=== PATIENT | female | born 1945 | race Caucasian/White ===

== ENCOUNTER → 2016-04-30 | Outpatient (CLI) | payer OTHER, BC ==
[~2016-04-30] MED LIST: ALPR1TAB3 PO; BENA20TA13 PO; ERGO500037 PO; FLUO20CA35 PO; PANT40TA PO; ZOLP10TA PO
[2016-04-30 10:27] LABS: BLOOD UREA NITROGEN 44 mg/dl (7-18); CALCIUM 9.2 mg/dl (8.5-10.1); CARBON DIOXIDE 26 mmol/L (21-32); CHLORIDE 104 mmol/L (98-107); GLUCOSE 96 mg/dl (70-99); POTASSIUM 4.8 mmol/L (3.5-5.1); SODIUM 141 mmol/L (136-145)
[2016-04-30 10:28] LABS: PHOSPHORUS 3.3 mg/dl (2.5-4.9)
== END | disposition home or self-care (01) ==
LOC: C.LAB1850 08:54
PROVIDERS: ATTEND Internal Medicine Nephrology
DX: R60.0 Localized edema (principal)

== ENCOUNTER → 2016-05-14 | Outpatient (CLI) | payer OTHER, BC ==
[2016-05-14 13:29] LABS: BLOOD UREA NITROGEN 35 mg/dl (7-18); BUN/CREATININE RATIO 18.4 (10-20); CALCIUM 8.9 mg/dl (8.5-10.1); CARBON DIOXIDE 27 mmol/L (21-32); CHLORIDE 107 mmol/L (98-107); GLUCOSE 89 mg/dl (70-99); PHOSPHORUS 3.1 mg/dl (2.5-4.9); POTASSIUM 5.2 mmol/L (3.5-5.1); SODIUM 142 mmol/L (136-145)
== END | disposition home or self-care (01) ==
LOC: C.LAB1850 12:04
PROVIDERS: ATTEND Internal Medicine Nephrology
DX: N17.9 Acute kidney failure, unspecified (principal)

== ENCOUNTER → 2016-06-26 | Outpatient (CLI) | payer OTHER, BC ==
[2016-06-26 12:12] LABS: ALT/SGPT 22 U/L (12-78); BLOOD UREA NITROGEN 40 mg/dl (7-18); BUN/CREATININE RATIO 19.9 (10-20); CALCIUM 9.4 mg/dl (8.5-10.1); CARBON DIOXIDE 29 mmol/L (21-32); CHLORIDE 104 mmol/L (98-107); GLUCOSE 86 mg/dl (70-99); POTASSIUM 4.3 mmol/L (3.5-5.1); SODIUM 139 mmol/L (136-145)
[2016-06-26 12:15] LABS: ALB/GLOB RATIO 0.9 (0.9-2); ALKALINE PHOSPHATASE 82 U/L (45-117); AST/SGOT 14 U/L (15-37); PHOSPHORUS 3.4 mg/dl (2.5-4.9)
== END | disposition home or self-care (01) ==
LOC: C.LAB1850 09:53
PROVIDERS: ATTEND Internal Medicine Nephrology
DX: N18.3 Chronic kidney disease, stage 3 (moderate) (principal); E87.1 Hypo-osmolality and hyponatremia

== ENCOUNTER → 2016-07-26 | Outpatient (CLI) | payer OTHER, BC ==
[2016-07-26 16:39] LABS: MANUAL MICROSCOPIC REQUIRED? NO; REVIEW REQ? NO; URINE APPEARANCE CLEAR (CLEAR); URINE BILIRUBIN NEG (NEG); URINE COLOR YELLOW; URINE EPITHELIAL CELL AUTO 0-5 /lpf (0-5); URINE NITRITE NEG (NEG); URINE SPECIFIC GRAVITY 1.014 (1.000-1.030); UROBILINOGEN NEG (NEG); ZZUR CULT IF INDIC CLEAN CATCH NO
[2016-07-26 17:30] LABS: URINE PROTIEN/CREAT RATIO 0.1 (0-0.2); URINE TOTAL PROTEIN 6.4 mg/dl (0-11.9)
[2016-07-26 17:33] LABS: BLOOD UREA NITROGEN 30 mg/dl (7-18); BUN/CREATININE RATIO 16.8 (10-20); CALCIUM 9.1 mg/dl (8.5-10.1); CARBON DIOXIDE 33 mmol/L (21-32); CHLORIDE 106 mmol/L (98-107); GLUCOSE 95 mg/dl (70-99); MAGNESIUM 2.3 mg/dl (1.8-2.4); POTASSIUM 4.5 mmol/L (3.5-5.1); SODIUM 141 mmol/L (136-145)
[2016-07-26 17:34] LABS: PHOSPHORUS 2.8 mg/dl (2.5-4.9)
== END | disposition home or self-care (01) ==
LOC: C.LAB1850 14:46
PROVIDERS: ATTEND Internal Medicine Nephrology
DX: N18.3 Chronic kidney disease, stage 3 (moderate) (principal); E55.9 Vitamin D deficiency, unspecified

== ENCOUNTER → 2016-12-04 | Outpatient (CLI) | payer OTHER, BC ==
[2016-12-04 16:28] LABS: MANUAL MICROSCOPIC REQUIRED? NO; REVIEW REQ? NO; URINE APPEARANCE CLEAR (CLEAR); URINE BILIRUBIN NEG (NEG); URINE COLOR YELLOW; URINE EPITHELIAL CELL AUTO 0-5 /lpf (0-5); URINE NITRITE NEG (NEG); URINE SPECIFIC GRAVITY 1.015 (1.000-1.030); UROBILINOGEN NEG (NEG); ZZUR CULT IF INDIC CLEAN CATCH NO
[2016-12-04 16:53] LABS: BLOOD UREA NITROGEN 31 mg/dl (7-18); BUN/CREATININE RATIO 18.1 (10-20); CALCIUM 9.3 mg/dl (8.5-10.1); CARBON DIOXIDE 28 mmol/L (21-32); CHLORIDE 97 mmol/L (98-107); GLUCOSE 82 mg/dl (70-99); POTASSIUM 4.8 mmol/L (3.5-5.1); SODIUM 130 mmol/L (136-145)
== END | disposition home or self-care (01) ==
LOC: C.LAB1850 15:21
PROVIDERS: ATTEND Internal Medicine Nephrology
DX: N18.3 Chronic kidney disease, stage 3 (moderate) (principal); R30.0 Dysuria

== ENCOUNTER → 2016-12-14 | Outpatient (CLI) | payer OTHER, BC ==
--- NOTE | 2016-12-14 15:23 | DIAGNOSTIC IMAGING REPORT ---
BILATERAL LOWER EXTREMITY VENOUS DOPPLER CLINICAL HISTORY: Lymphedema. COMPARISON STUDY: Bilateral lower extremity venous Doppler August 08, 2012. TECHNIQUE: Sonography of the deep venous system of the bilateral lower extremities was performed. Compression and augmentation were evaluated. FINDINGS: The bilateral common femoral, superficial femoral and popliteal veins were compressible. Augmentation was normal. Flow was shown within the deep calf vessels. Lower extremity edema was noted. IMPRESSION: No evidence of deep venous thrombus within the bilateral lower extremities. Electronically signed by: Deshawn Joiner M.D. 12/14/2016 3:21 PM Dictated Date/Time: 12/14/2016 3:20 PM
[2016-12-14 16:16] LABS: BLOOD UREA NITROGEN 35 mg/dl (7-18); BUN/CREATININE RATIO 20.8 (10-20); CALCIUM 9.5 mg/dl (8.5-10.1); CARBON DIOXIDE 29 mmol/L (21-32); CHLORIDE 102 mmol/L (98-107); GLUCOSE 89 mg/dl (70-99); POTASSIUM 4.9 mmol/L (3.5-5.1); SODIUM 137 mmol/L (136-145)
[2016-12-14 16:17] LABS: PHOSPHORUS 3.4 mg/dl (2.5-4.9)
--- NOTE | 2016-12-21 07:55 | CODING QUERY MEDICAL NECESSITY ---
SUPPORTING DIAGNOSIS NEEDED A supporting diagnosis is required for the test/procedure performed on this patient in order for us to be reimbursed by the patient's insurance. Please provide a supporting diagnosis for the following test/procedure listed below next to the test name along with your signature. *If there is no additional diagnosis for this patient that would support the following test/procedure please document that below next to the test/procedure. Test(s)/Procedure(s) that require a supporting diagnosis: * US VENOUS DOPPLER LWR EXT BILATERAL DIAGNOSIS: Provider Signature: Date: Thank you [place] [employer] Information Management Once completed, please kindly fax back to [phone] For questions please call [phone]
== END | disposition home or self-care (01) ==
LOC: C.ULTR 14:25
PROVIDERS: ATTEND Internal Medicine Nephrology
DX: I89.0 Lymphedema, not elsewhere classified (principal); R60.0 Localized edema

== ENCOUNTER → 2017-01-25 | Outpatient (CLI) | payer OTHER, BC ==
[2017-01-25 14:49] LABS: BASO % 0.8 %; BASO ABS # 0.05 K/uL (0-0.2); COMPLETE YES; EOS % 4.7 %; HEMATOCRIT 38.7 % (37-47); IG% 0.2 %; LYMPH % 25.6 %; LYMPH ABS # 1.62 K/uL (1.2-3.4); MEAN CELL VOLUME 98.2 fL (80-100); MEAN CORPUSCULAR HGB CONC 32.6 g/dl (32-36); MEAN PLATELET VOLUME 9.8 fL (7.4-10.4); MONO % 7.6 %; NEUT % 61.1 %; PLATELET COUNT 246 K/uL (130-400); RED BLOOD COUNT 3.94 M/uL (4.2-5.4); WHITE BLOOD COUNT 6.33 K/uL (4.8-10.8)
[2017-01-25 14:59] LABS: BLOOD UREA NITROGEN 28 mg/dl (7-18); BUN/CREATININE RATIO 16.9 (10-20); CALCIUM 8.8 mg/dl (8.5-10.1); CARBON DIOXIDE 28 mmol/L (21-32); CHLORIDE 105 mmol/L (98-107); CREATININE 1.64 mg/dl (0.60-1.20); GLUCOSE 73 mg/dl (70-99); MAGNESIUM 2.3 mg/dl (1.8-2.4); POTASSIUM 4.5 mmol/L (3.5-5.1); SODIUM 138 mmol/L (136-145)
[2017-01-25 15:00] LABS: PHOSPHORUS 2.8 mg/dl (2.5-4.9)
[2017-01-25 15:12] LABS: URINE APPEARANCE CLEAR (CLEAR); URINE BILIRUBIN NEG (NEG); URINE COLOR YELLOW; URINE EPITHELIAL CELL AUTO 0-5 /lpf (0-5); URINE NITRITE NEG (NEG); URINE PH 5.5 (4.5-7.5); URINE SPECIFIC GRAVITY 1.012 (1.000-1.030); UROBILINOGEN NEG (NEG); ZZUR CULT IF INDIC CLEAN CATCH NO
[2017-01-25 15:15] LABS: MANUAL MICROSCOPIC REQUIRED? NO; REVIEW REQ? NO
[2017-01-25 15:22] LABS: URINE TOTAL PROTEIN < 5.0 mg/dl (0-11.9)
--- NOTE | 2017-02-04 13:14 | CODING QUERY MEDICAL NECESSITY ---
SUPPORTING DIAGNOSIS NEEDED A supporting diagnosis is required for the test/procedure performed on this patient in order for us to be reimbursed by the patient's insurance. Please provide a supporting diagnosis for the following test/procedure listed below next to the test name along with your signature. *If there is no additional diagnosis for this patient that would support the following test/procedure please document that below next to the test/procedure. Test(s)/Procedure(s) that require a supporting diagnosis: * VITAMIN D, 25-HYDROXY DIAGNOSIS: Provider Signature: Date: Thank you [place] [employer] Information [employer] Once completed, please kindly fax back to [phone] For questions please call [phone]
== END | disposition home or self-care (01) ==
LOC: C.LAB1850 12:21
PROVIDERS: ATTEND Internal Medicine Nephrology
DX: E87.1 Hypo-osmolality and hyponatremia (principal)

== ENCOUNTER → 2017-05-27 | Outpatient (CLI) | payer OTHER, BC ==
--- NOTE | 2017-05-27 15:43 | DIAGNOSTIC IMAGING REPORT ---
CHEST 2 VIEWS ROUTINE CLINICAL HISTORY: Shortness of breath COMPARISON STUDY: No previous studies for comparison. FINDINGS: The cardiac and mediastinal contours are normal. There is no evidence of focal pulmonary consolidation. There is no evidence of failure. No pleural effusions are visualized.[ IMPRESSION: No active disease in the chest. Electronically signed by: Dakotah Reagan M.D. 05/27/2017 3:41 PM Dictated Date/Time: 05/27/2017 3:41 PM
== END | disposition home or self-care (01) ==
LOC: C.RAD 15:20
PROVIDERS: ATTEND Family Medicine
DX: R06.02 Shortness of breath (principal)

== ENCOUNTER → 2017-07-29 | Outpatient (CLI) | payer OTHER, BC ==
[2017-07-29 16:06] LABS: BASO % 0.6 %; BASO ABS # 0.04 K/uL (0-0.2); EOS ABS # 0.37 K/uL (0-0.5); HEMATOCRIT 39.1 % (37-47); HEMOGLOBIN 12.6 g/dL (12.0-16.0); IG# 0.02 K/uL (0.00-0.02); LYMPH % 31.3 %; LYMPH ABS # 1.93 K/uL (1.2-3.4); MEAN CELL VOLUME 96.3 fL (80-100); MEAN CORPUSCULAR HGB CONC 32.2 g/dl (32-36); MEAN PLATELET VOLUME 10.1 fL (7.4-10.4); MONO % 7.3 %; MONO ABS # 0.45 K/uL (0.11-0.59); NEUT % 54.5 %; NEUT ABS # 3.36 K/uL (1.4-6.5); PLATELET COUNT 247 K/uL (130-400); RED CELL DISTRIBUTION WIDTH CV 13.9 % (11.5-14.5); RED CELL DISTRIBUTION WIDTH SD 49.2 fL (36.4-46.3); WHITE BLOOD COUNT 6.17 K/uL (4.8-10.8)
[2017-07-29 16:25] LABS: ALBUMIN 3.4 gm/dl (3.4-5.0); BLOOD UREA NITROGEN 29 mg/dl (7-18); CALCIUM 8.8 mg/dl (8.5-10.1); CARBON DIOXIDE 29 mmol/L (21-32); CREATININE 1.75 mg/dl (0.60-1.20); GLUCOSE 93 mg/dl (70-99); PHOSPHORUS 2.5 mg/dl (2.5-4.9); POTASSIUM 4.9 mmol/L (3.5-5.1); SODIUM 139 mmol/L (136-145)
== END | disposition home or self-care (01) ==
LOC: C.LAB1850 14:39
PROVIDERS: ATTEND Internal Medicine Nephrology
DX: N18.3 Chronic kidney disease, stage 3 (moderate) (principal)

== ENCOUNTER 2018-11-16 16:06 | Inpatient (IN) ==
[2018-11-16] MEDS ORDERED: ONDANSETRON INJ 2 MG/ML 2 ML VIAL IV STA (16:19)
[2018-11-16] MEDS ORDERED: SODIUM CHLORIDE 0.9% 1000ML 1,000 ML IV SCH (16:30)
--- NOTE | 2018-11-16 16:42 | XRay Report ---
XR chest 1V portable CLINICAL HISTORY: nausea pain COMPARISON STUDY: 07/20/2018 FINDINGS: The bones soft tissues and hemidiaphragms are normal. The cardiomediastinal silhouette is n ormal. The lungs are clear. The pulmonary vasculature is normal. IMPRESSION: Negative chest. The above report was generated using voice recognition software. It may contain grammatical, syntax or spelling errors. Electronically signed by: George Otoole M.D. 11/16/2018 4:41 PM
[2018-11-16 17:17] LABS: Basophils # (auto) 0.02 K/uL (0-0.2); Basophils % (auto) 0.3 %; Eosinophils # (auto) 0.11 K/uL (0-0.5); Eosinophils % (auto) 1.6 %; Hematocrit (blood only) 34.6 % (37-47); Hemoglobin 11.8 g/dL (12.0-16.0); Immature Granulocytes # (auto) 0.04 K/uL (0.00-0.02); Immature Granulocytes % (auto) 0.6 %; Lymphocytes # (auto) 1.24 K/uL (1.2-3.4); Lymphocytes % (auto) 18.2 %; Mean Corpuscular Hgb Conc 34.1 g/dL (32-36); Mean Corpuscular Volume 93.3 fL (80-100); Monocytes # (auto) 0.48 K/uL (0.11-0.59); Neutrophils # (auto) 4.92 K/uL (1.4-6.5); Neutrophils % (auto) 72.3 %; Platelet Count 224 K/uL (130-400); RDW Coefficient of Variation 12.9 % (11.5-14.5); RDW Standard Deviation 43.5 fL (36.4-46.3); Red Blood Count 3.71 M/uL (4.2-5.4); White Blood Count 6.81 K/uL (4.8-10.8)
[2018-11-16 17:30] LABS: Partial Thromboplastin Time 27.8 Seconds (21.0-31.0); Prothrombin Time 9.8 Seconds (9.0-12.0)
--- NOTE | 2018-11-16 17:32 | CT Scan Report ---
CT head/brain wo con CT DOSE: 2511.58 mGy.cm HISTORY: STOVALL and nausea TECHNIQUE: Multiaxial CT images of the head were performed without the use of intravenous contrast. A dose lowering technique was utilized adhering to the principles of ALARA. Comparison: None. Findings: The paranasal sinuses and mastoid air cells are clear. The calvarium and skull base are int act. The ventricles and sulci are within normal limits. There is no mass, hematoma, midline shift, or acute infarct. There is a left periventricular subacute infarct. No evidence for acute intracranial hemorrhage. Impression: 1. Subacute left periventricular infarct. 2. Otherwise negative study. 3. No evidence for acute intracranial hemorrhage. The above report was generated using voice recognition software. It may contain grammatical, syntax or spelling errors. Electronically signed by: George Otoole M.D. 11/16/2018 5:29 PM
[2018-11-16 17:35] LABS: Alanine Aminotransferase 19 U/L (12-78); Albumin Level 3.6 gm/dl (3.4-5.0); Aspartate Aminotransferase 13 U/L (15-37); Blood Urea Nitrogen 24 mg/dl (7-18); Calcium 8.9 mg/dl (8.5-10.1); Carbon Dioxide 26 mmol/L (21-32); Chloride 98 mmol/L (98-107); Creatinine Clr Calc Pharmacy 32.8 ml/min; Est GFR (African American) 33.6; Glucose 100 mg/dl (70-99); Potassium 4.4 mmol/L (3.5-5.1); Sodium 133 mmol/L (136-145)
--- NOTE | 2018-11-16 17:36 | CT Scan Report ---
CT abd pelvis wo con CT DOSE: HISTORY: Pain suprapubic TECHNIQUE: Multiaxial CT images of the abdomen and pelvis were performed without contrast. A dose lo wering technique was utilized adhering to the principles of ALARA. COMPARISON STUDY: None. FINDINGS: Lung bases are clear. Liver spleen and pancreas are unremarkable. Mild cortical scarring of the kidneys bilaterally. No evidence for renal hydronephrosis. Probable right renal cyst. Bowel pattern is nonobstructive. Scattered colonic diverticulosis with no evidence for acute divertic ulitis. Bladder is midline. Small fat-containing anterior wall hernia. This shows no evidence of rory l containment or obstruction. IMPRESSION: No acute process in the abdomen or pelvis. Incidental findings as noted. The above report was generated using voice recognition software. It may contain grammatical, syntax or spelling errors. Electronically signed by: George Otoole M.D. 11/16/2018 5:34 PM
[2018-11-16 17:40] LABS: Albumin Globulin Ratio 1.1 (0.9-2); Alkaline Phosphatase 57 U/L (45-117); Bilirubin,Total 0.5 mg/dl (0.2-1); Globulin 3.4 gm/dl (2.5-4.0); Troponin I < 0.015 ng/ml (0-0.045)
[2018-11-16] MEDS ORDERED: LABETALOL HCL IV 5 MG/ML 20ML IV STA ×2 (17:47→18:55)
[2018-11-16] MEDS ORDERED: ASPIRIN CHEW 324 MG PO STA (17:47)
--- NOTE | 2018-11-16 17:51 | Emergency Department Note ---
Entered by Paige Willoughby acting as a scribe for Neri Mondragon DO History of Present Illness General Chief complaint: Abdominal Pain Stated complaint: REF BY DR; ABDOMINAL PAIN,BURNING,NAUSEA Time Seen by Provider: 11/16/18 16:13 Source: patient Mode of arrival: ambulatory Limitations: no limitations History of Present Illness Onset (ago): day(s) 5 Location: abdomen Pain Consistency: + other (worsening ) Maximum Pain Intensity: 7 Relieved By: + other Associated symptoms: + denies other symptoms (vaginal discharge, rectal bleeding ), + headaches, + nausea/vomiting (nausea) and + other (dysuria, bloating); no rash The patient is a 73 year old female who presents to the ED with complaints of worsening abdominal pain that began 5 days ago. The patient states that she typically always has abdominal pain but in the past 2 days she has also been experiencing burning pain while urinating. She reports that she has been experiencing abdominal bloating. She states that she got a headache this afternoon. The patient states that she has been nauseated for 4 days now and was prescribed Zofran by her Production Controller, Dr. Jhon. She states that she sees him for her stage 3 kidney disease. The patient states that the Zofran worked for 2 days but her nausea has returned. The patient was referred to the ED from her visit at the clinic this morning to have a GI system check. The patent states that she was in the ED a few months ago for the same symptoms. The patient denies a rash or discharge in her vaginal area. The patient denies rectal bleeding. Home Medications Home Medications Medication Instructions Recorded Confirmed Type alprazolam 1 mg PO TID 07/19/18 11/16/18 History beclomethasone dipropionate [Qvar 1 puff INHALATION BID 07/19/18 11/16/18 History RediHaler] benazepril 20 mg PO QAM 07/19/18 11/16/18 History calcitriol 0.25 mcg PO QAM 07/19/18 11/16/18 History fluoxetine 60 mg PO QAM 07/19/18 11/16/18 History fluticasone propionate 1 spray INTRANASAL QAM 07/19/18 11/16/18 History montelukast 10 mg PO HS 07/19/18 11/16/18 History pantoprazole 40 mg PO BID 07/19/18 11/16/18 History ondansetron HCl 4 mg tablet 4 mg PO Q8H PRN #7 tab 11/12/18 11/16/18 Rx Allergies Allergy/AdvReac Type Severity Reaction Status Date / Time Penicillins Allergy Unknown RASH TO Verified 11/16/18 16:40 AMOXIL, NO RESP PROBLEMS amoxicillin Allergy Hives Verified 11/16/18 20:15 Past Med/Surg History Medical History Major depressive disorder (Chronic) GERD (gastroesophageal reflux disease) (Chronic) HTN (hypertension) (Chronic) Anxiety (Chronic) Chronic kidney disease (Chronic) Surgical History History of right knee joint replacement (Chronic) Family History Mother Heart disease Stroke Social History Preferred Language: [place] Communication Ability: Effective 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 and A total of 10 systems reviewed and were otherwise negative Physical Exam Vital Signs Vital Signs - 24 hr 11/16/18 16:08 11/16/18 16:57 11/16/18 18:05 Temperature 37.1 C Temperature Source Oral Sepsis Recent Fever Within 48 Hours No Sepsis New/Unexplained Change in Mental Status No Sepsis Action Taken by Nursing No Action Required Pulse Rate 104 H Pulse Rate [Apical] 86 Respiratory Rate 22 18 Respiratory Effort / Characteristics Non-Labored Respiratory Depth Normal Blood Pressure 184/86 H Blood Pressure [Left Arm] 192/106 H Blood Pressure Mean 118 Blood Pressure Mean [Left Arm] 134 Pulse Oximetry 95 98 100 Oxygen Delivery Method Room Air Room Air Room Air GENERAL: Patient is awake, alert, and in no acute distress.Patient is resting comfortably and showing no signs of anxiety EYES: The conjunctivae are clear. The pupils are round and reactive. EARS, NOSE, MOUTH AND THROAT: The nose is without any evidence of any deformity. Mucous membranes are moist.Tongue is midline NECK: The neck is nontender and supple. RESPIRATORY: Normal respiratory effort is noted. There is no evidence of wheez ing rhonchi or rales to auscultation. CARDIOVASCULAR: Regular rate and rhythm noted. There no murmurs rubs or gallops normal S1 normal S2 GASTROINTESTINAL: The abdomen is mildly distended but soft, there is suprapubic tenderness to palpation but no guarding or rigidity. Bowel sounds are present in all quadrants. MUSCULOSKELETAL/EXTREMITIES: There is no evidence of gross deformity. Full range of motion is noted in the hips and shoulders. SKIN: There is no obvious evidence of any rash. There are no petechiae, pallor or cyanosis noted. Pedal edema bilaterally. NEUROLOGIC: Patient is awake alert and oriented x3. Course 1615: Past medical records reviewed. The patient was evaluated in room C10. A complete history and physical exam was performed. 1747: I discussed the patients case with Dr. Coty Juárez, [facility]. She agreed to evaluate the patient for further management. 1830: The patient will be administered another dose of Labetalol because her blood pressure is still high. Consultations Consultation #1: I discussed the patients case with Dr. Coty Juárez, [facility]. She agreed to evaluate the patient for further management. Time: 17:47 Administered Medications Alprazolam (Xanax) 1 mg PO TID MONSE Stop: 12/16/18 20:59 Last Admin: 11/16/18 21:40 Dose: 1 mg Documented by: [id number] Beclomethasone Dipropionate (Qvar 40 Mcg) 1 puffs INH BID MONSE Stop: 12/16/18 20:59 Last Admin: 11/16/18 21:38 Dose: 1 puffs Documented by: [id number] Heparin Sodium (Porcine) (Heparin Sodium (Porcine)) 5,000 units SQ Q8 MONSE Stop: 12/16/18 21:59 Last Admin: 11/16/18 21:39 Dose: 5,000 units Documented by: [id number] Cosigned by: [id number] Sodium Chloride (1/2 Nss) 1,000 mls @ 80 mls/hr IV .[id number] MONSE Stop: 12/16/18 19:57 Last Admin: 11/16/18 21:36 Dose: 80 mls/hr Documented by: [id number] Montelukast Sodium (Singulair) 10 mg PO HS MONSE Stop: 12/16/18 20:59 Last Admin: 11/16/18 21:38 Dose: 10 mg Documented by: [id number] Pantoprazole Sodium (Protonix) 40 mg PO BID MONSE Stop: 12/16/18 20:59 Last Admin: 11/16/18 21:38 Dose: 40 mg Documented by: [id number] Discontinued Medications Acetaminophen (Tylenol) 1,000 mg PO NOW STA Stop: 11/16/18 17:53 Last Admin: 11/16/18 17:59 Dose: 1,000 mg Documented by: [id number] Aspirin (Aspirin) 324 mg PO NOW STA Stop: 11/16/18 17:48 Last Admin: 11/16/18 17:59 Dose: 324 mg Documented by: [id number] Fluconazole (Diflucan) 150 mg PO NOW ONE Stop: 11/16/18 20:16 Last Admin: 11/16/18 21:37 Dose: 150 mg Documented by: [id number] Sodium Chloride (Nss 1000ml) 1,000 mls @ 999 mls/hr IV .Q1H1M MONSE Stop: 11/16/18 17:30 Last Infusion: 11/16/18 19:44 Dose: 0 mls/hr Documented by: [id number] Admin: 11/16/18 16:52 Dose: 999 mls/hr Documented by: [id number] Labetalol HCl (Normodyne) 10 mg IV NOW STA Stop: 11/16/18 17:48 Last Admin: 11/16/18 17:59 Dose: 10 mg Documented by: [id number] Cosigned by: [id number] Labetalol HCl (Normodyne) 10 mg IV NOW STA Stop: 11/16/18 18:56 Last Admin: 11/16/18 19:16 Dose: 10 mg Documented by: [id number] Cosigned by: [id number] Ondansetron HCl (Zofran) 4 mg IV NOW STA Stop: 11/16/18 16:20 Last Admin: 11/16/18 16:51 Dose: 4 mg Documented by: [id number] Medical Decision Making Differential Diagnosis Differential diagnosis: Etiologies such as gastroenteritis, food borne illness, infections, appendicitis, diverticulitis, inflammatory bowel disease, obstruction, GI bleed, biliary pathology, as well as others were entertained. Medical Records Attestation: I reviewed the patient's medical records. Home Medications Current Medication List: was personally reviewed by nh Laboratory Data Attestation: I reviewed the patient's lab results. Result diagrams: 11/16/18 17:10 11/16/18 17:10 Lab Results 11/16/18 11/16/18 11/16/18 Range/Units 17:10 17:10 17:10 WBC 6.81 (4.8-10.8) K/uL RBC 3.71 L (4.2-5.4) M/uL Hgb 11.8 L (12.0-16.0) g/dL Hct 34.6 L (37-47) % MCV 93.3 (80-100) fL MCH 31.8 (25-34) pg MCHC 34.1 (32-36) g/dL RDW Std Deviation 43.5 (36.4-46.3) fL RDW Coeff of Chauncey 12.9 (11.5-14.5) % Plt Count 224 (130-400) K/uL MPV 9.0 (7.4-10.4) fL Immature Gran % (Auto) 0.6 % Neut % (Auto) 72.3 % Lymph % (Auto) 18.2 % [place] % (Auto) 7.0 % Eos % (Auto) 1.6 % Baso % (Auto) 0.3 % Immature Gran # (Auto) 0.04 H (0.00-0.02) K/uL Neut # (Auto) 4.92 (1.4-6.5) K/uL Lymph # (Auto) 1.24 (1.2-3.4) K/uL [place] # (Auto) 0.48 (0.11-0.59) K/uL Eos # (Auto) 0.11 (0-0.5) K/uL Baso # (Auto) 0.02 (0-0.2) K/uL PT 9.8 (9.0-12.0) Seconds INR 1.0 (0.9-1.1) APTT 27.8 (21.0-31.0) Seconds PTT Ratio 1.0 Sodium 133 L (136-145) mmol/L Potassium 4.4 (3.5-5.1) mmol/L Chloride 98 (98-107) mmol/L Carbon Dioxide 26 (21-32) mmol/L Anion Gap 9.0 (3-11) BUN 24 H (7-18) mg/dl Creatinine 1.74 H (0.6-1.2) mg/dl Est Cr Clr Drug Dosing 32.8 ml/min Est GFR ( Amer) 33.6 Est GFR (Non-Af Amer) 29.0 BUN/Creatinine Ratio 14.0 (10-20) Glucose 100 H (70-99) mg/dl Calcium 8.9 (8.5-10.1) mg/dl Total Bilirubin 0.5 (0.2-1) mg/dl AST 13 L (15-37) U/L ALT 19 (12-78) U/L Alkaline Phosphatase 57 (45-117) U/L Troponin I < 0.015 (0-0.045) ng/ml Total Protein 7.0 (6.4-8.2) gm/dl Albumin 3.6 (3.4-5.0) gm/dl Globulin 3.4 (2.5-4.0) gm/dl Albumin/Globulin Ratio 1.1 (0.9-2) Lipase 120 (73-393) U/L Urine Color Urine Appearance (Clear) Urine pH (4.5-7.5) Ur Specific [place] (1.000-1.030) Urine Protein (Negative) Urine Glucose (UA) (Negative) Urine Ketones (Negative) Urine Blood (Negative) Urine Nitrite (Negative) Urine Bilirubin (Negative) Urine Urobilinogen (Negative) Ur Leukocyte Esterase (Negative) Hepatitis C Ab Screen (Neg) 11/16/18 11/16/18 Range/Units 17:10 17:29 WBC (4.8-10.8) K/uL RBC (4.2-5.4) M/uL Hgb (12.0-16.0) g/dL Hct (37-47) % MCV (80-100) fL MCH (25-34) pg MCHC (32-36) g/dL RDW Std Deviation (36.4-46.3) fL RDW Coeff of Chauncey (11.5-14.5) % Plt Count (130-400) K/uL MPV (7.4-10.4) fL Immature Gran % (Auto) % Neut % (Auto) % Lymph % (Auto) % [place] % (Auto) % Eos % (Auto) % Baso % (Auto) % Immature Gran # (Auto) (0.00-0.02) K/uL Neut # (Auto) (1.4-6.5) K/uL Lymph # (Auto) (1.2-3.4) K/uL [place] # (Auto) (0.11-0.59) K/uL Eos # (Auto) (0-0.5) K/uL Baso # (Auto) (0-0.2) K/uL PT (9.0-12.0) Seconds INR (0.9-1.1) APTT (21.0-31.0) Seconds PTT Ratio Sodium (136-145) mmol/L Potassium (3.5-5.1) mmol/L Chloride (98-107) mmol/L Carbon Dioxide (21-32) mmol/L Anion Gap (3-11) BUN (7-18) mg/dl Creatinine (0.6-1.2) mg/dl Est Cr Clr Drug Dosing ml/min Est GFR ( Amer) Est GFR (Non-Af Amer) BUN/Creatinine Ratio (10-20) Glucose (70-99) mg/dl Calcium (8.5-10.1) mg/dl Total Bilirubin (0.2-1) mg/dl AST (15-37) U/L ALT (12-78) U/L Alkaline Phosphatase (45-117) U/L Troponin I (0-0.045) ng/ml Total Protein (6.4-8.2) gm/dl Albumin (3.4-5.0) gm/dl Globulin (2.5-4.0) gm/dl Albumin/Globulin Ratio (0.9-2) Lipase (73-393) U/L Urine Color Yellow Urine Appearance Clear (Clear) Urine pH 6.5 (4.5-7.5) Ur Specific [place] 1.009 (1.000-1.030) Urine Protein Negative (Negative) Urine Glucose (UA) Negative (Negative) Urine Ketones Negative (Negative) Urine Blood Negative (Negative) Urine Nitrite Negative (Negative) Urine Bilirubin Negative (Negative) Urine Urobilinogen Negative (Negative) Ur Leukocyte Esterase Negative (Negative) Hepatitis C Ab Screen Neg (Neg) Imaging Data Radiologist's Impression: Radiology results as stated below per my review and the radiologist's interpretation: CT head/brain wo con CT DOSE: 2511.58 mGy.cm HISTORY: STOVALL and nausea TECHNIQUE: Multiaxial CT images of the head were performed without the use of intravenous contrast. A dose lowering technique was utilized adhering to the principles of ALARA. Comparison: None. Findings: The paranasal sinuses and mastoid air cells are clear. The calvarium and skull base are intact. The ventricles and sulci are within normal limits. There is no mass, hematoma, midline shift, or acute infarct. There is a left periventricular subacute infarct. No evidence for acute intracranial hemorrhage. Impression: 1. Subacute left periventricular infarct. 2. Otherwise negative study. 3. No evidence for acute intracranial hemorrhage. The above report was generated using voice recognition software. It may contain grammatical, syntax or spelling errors. Electronically signed by: George Otoole M.D. 11/16/2018 5:29 PM XR chest 1V portable CLINICAL HISTORY: nausea pain COMPARISON STUDY: 07/20/2018 FINDINGS: The bones soft tissues and hemidiaphragms are normal. The cardiomediastinal silhouette is normal. The lungs are clear. The pulmonary vasculature is normal. IMPRESSION: Negative chest. The above report was generated using voice recognition software. It may contain grammatical, syntax or spelling errors. Electronically signed by: George Otoole M.D. 11/16/2018 4:[address] abd pelvis wo con CT DOSE: HISTORY: Pain suprapubic TECHNIQUE: Multiaxial CT images of the abdomen and pelvis were performed without contrast. A dose lowering technique was utilized adhering to the principles of ALARA. COMPARISON STUDY: None. FINDINGS: Lung bases are clear. Liver spleen and pancreas are unremarkable. Mild cortical scarring of the kidneys bilaterally. No evidence for renal hyd ronephrosis. Probable right renal cyst. Bowel pattern is nonobstructive. Scattered colonic diverticulosis with no evidence for acute diverticulitis. Bladder is midline. Small fat-containing anterior wall hernia. This shows no evidence of bowel containment or obstruction. IMPRESSION: No acute process in the abdomen or pelvis. Incidental findings as noted. The above report was generated using voice recognition software. It may contain grammatical, syntax or spelling errors. Electronically signed by: George Otoole M.D. 11/16/2018 5:34 PM ECG Data Attestation: I personally reviewed and interpreted this ECG as follows: Indication: abdominal pain Rate (beats per minute): 93 Rhythm: normal sinus Findings: + ST depression (lateral); no ST elevation Comparison ECG Date: from (07/19/18) Change: no significant change Blood Pressure Blood Pressure Findings: Elevated blood pressure Blood Pressure Disposition: further management by hospitalist MICHAEL Michaud The patient is a 73-year-old female who presented to the emergency department for an evaluation of headache and nausea. The patient has been having what were thought to be GI symptoms over the last few weeks. She was seen by her primary duct cleaner and had laboratory studies obtained. Her renal function appears to be at baseline. She followed up with her primary care physician today and also complained of some other symptoms such as loose bowel movements. She was sent to the emergency department for an evaluation of possible dehydration. The patient was found to have elevated blood pressure. She had no focal neurologic deficit but because of her ongoing nausea and the headache other neurologic imaging was obtained including GI imaging. I discussed the patient's laboratory and radiographic studies with her. She was treated with IV fluids and IV Zof ran. She was also treated with aspirin and labetalol because of elevated blood pressure and the findings on CAT scan which were felt to be consistent with a subacute stroke. I discussed this with the patient. She was actually quite shocked to hear this. I discussed her case with the on-call [facility] hospitalist. They have agreed to evaluate the patient in the emergency department for further management disposition. Impression & Plan Stroke, Nausea, Weakness Discharge Plan Visit Data *Final* Discharge Date/Time: 11/16/18 19:20 Chief Complaint: Abdominal Pain Stated Complaint: REF BY ; ABDOMINAL PAIN,BURNING,NAUSEA ED Provider: Neri Mondragon Discharge Problem: Stroke, Nausea, Weakness Patient Disposition: Admitted As Inpatient Discharge Instructions Interventions: ED Discharge Assessment Last Done: 11/16/18 19:20 Discharge Problem: Stroke Qualifiers: CVA mechanism: unspecified Qualified Code(s): I63.9 - Cerebral infarction, unspecified The scribe's documentation has been prepared under my direction and personally reviewed by me in its entirety. I confirm that the note above accurately reflects all work, treatment, procedures, and medical decision making performed by me.
[2018-11-16] MEDS ORDERED: ACETAMINOPHEN 500 MG TAB PO STA (17:52)
[2018-11-16 17:59] LABS: Appearance Urine Clear (Clear); Bilirubin Urine Negative (Negative); Blood Urine Negative (Negative); Color Urine Yellow; Glucose Urine UA Negative (Negative); Ketones Urine Negative (Negative); Leukocyte Esterase Urine Negative (Negative); Nitrite Urine Negative (Negative); Protein Urine Negative (Negative); Specific Gravity Urine 1.009 (1.000-1.030); Urobilinogen Urine Negative (Negative); pH Urine 6.5 (4.5-7.5)
--- NOTE | 2018-11-16 18:30 | History & Physical Report ---
Date of Service November 16, 2018 Assessment & Plan (1) Stroke: CT noted for subacute stroke Pt has had no "classic" stroke sx recently, but has had a worsening of headache, n/d, and generally feeling unwell MRI pending Start plavix Neuro c/s pending A1c, lipids pending (2) Nausea: worsening nausea with diarrhea CTAP neg for acute Possibly related to subacute stroke Cdiff pending (3) Burning pain: Urinary burning noted Hx of UTIs, but not recently UA neg, cx pending Will give single dose diflucan and monitor sx (4) GERD (gastroesophageal reflux disease): continue home meds (5) HTN (hypertension): continue home meds (6) Anxiety: continue home meds (7) Chronic kidney disease: Cr is 1.7, which is around her baseline of 1.6-1.7 Improved from 1.9 earlier in the week Monitor with gentle IVF (8) Depression: continue home meds (9) DVT prophylaxis: Heparin for DVT proph History of Present Illness Primary Care Provider: Neri Denson MD 73 y/o F c/o feeling generally unwell. Pt states that she has felt unwell for the last few weeks. She always has nausea "on and off" but it has been worse recently. No emesis and she is able to eat breakfast, but the nausea gets worse throughout the day and her overall PO intake is low. She has been having repeat episodes of diarrhea. She states she always has loose stools but this has been more frequent and more loose. She gets headaches "on and off" but she has been having more recently and they have been more intense in the frontal region. She states that she was SOB today with coming out of the bathroom in the ED. She states that this AM she woke up with a burning in her urethra "like it was going to my bladder". No itching or discharge. It has been "on and off" for the last few weeks, but it has been constant since this AM. She also noted some anal burning today as well. She states that she has had no energy the last few weeks. 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 Pt was seen by Dr. John on Saturday due to feeling unwell. He alberto some labs and felt she was a bit dehydrated. She continued to feel unwell so she went to the walk in clinic and the doctor there sent her to the ED because she looked so unwell. Pt denies any periods of confusion, inability to use UE/LE, facial droop, slurred speech over the last few weeks. Pt states she takes an aspirin sometimes when she doesn't feel well, but no daily use. Pt denies fever, chest pain, abd pain, LE pain or swelling. Allergies Allergy/AdvReac Type Severity Reaction Status Date / Time Penicillins Allergy Unknown RASH TO Verified 11/16/18 16:40 AMOXIL, NO RESP PROBLEMS Home Medications Home Medications Medication Instructions Recorded Confirmed Type alprazolam 1 mg PO TID 07/19/18 11/16/18 History beclomethasone dipropionate [Qvar 1 puff INHALATION BID 07/19/18 11/16/18 History RediHaler] benazepril 20 mg PO QAM 07/19/18 11/16/18 History calcitriol 0.25 mcg PO QAM 07/19/18 11/16/18 History fluoxetine 60 mg PO QAM 07/19/18 11/16/18 History fluticasone propionate 1 spray INTRANASAL QAM 07/19/18 11/16/18 History montelukast 10 mg PO HS 07/19/18 11/16/18 History pantoprazole 40 mg PO BID 07/19/18 11/16/18 History ondansetron HCl 4 mg tablet 4 mg PO Q8H PRN #7 tab 11/12/18 11/16/18 Rx Past Med/Surg History Medical History Major depressive disorder (Chronic) GERD (gastroesophageal reflux disease) (Chronic) HTN (hypertension) (Chronic) Anxiety (Chronic) Chronic kidney disease (Chronic) Surgical History History of right knee joint replacement (Chronic) Family History Mother Heart disease Stroke Social History Feels Safe at Home: Yes Smoking Status: Never smoker Hx Alcohol Use: No Hx Substance Use: No Review of Systems Review of Systems: Pertinent positives and negatives reviewed in HPI--all others negative Physical Exam Constitutional: WD/WN, vitals as above Eyes: normal visual min by confrontation and + anicteric sclerae Neck: normal visual inspection and trachea midline Respiratory: normal respiratory effort, lungs clear to auscultation Cardiovascular: Rate/Rhythm: regular rate and regular rhythm Gastrointestinal (Abdomen): Inspection/Auscultation: abdomen not distended Percussion/Palpation: abdomen soft; abdomen nontender Musculoskeletal: Head/Neck/Chest: normocephalic and head atraumatic negative for edema, peripheral pulses intact Skin: no rashes, warm and dry Neurologic: awake; not confused Speech / Cognition: normal speech Psychiatric: A+Ox3, euthymic affect Results & Data Vital Signs (Past 12 Hours) Vital Signs Temp Pulse Pulse Resp BP BP Pulse Ox 11/16/18 18:05 86 18 192/106 H 100 11/16/18 16:57 98 11/16/18 16:08 37.1 C 104 H 22 184/86 H [address] head: L periventricular subacute infarct CTAP: neg for acute ECG Rhythm: normal sinus Code Status & VTE Plan Code Status Full code, although pt states no prolonged mechanical life support, feeding tubes, etc VTE Prophylaxis Plan VTE Prophylaxis will be ordered: Yes PG Care Time/CCT Total # of Minutes Spent Total Time Spent with Patient: Total time spent is greater than 50% in coordination of care (as documented) at patient's floor/unit and/or counseling patient: (1) Stroke CVA mechanism: unspecified Qualified Code(s): I63.9 - Cerebral infarction, unspecified
[2018-11-16] MEDS ORDERED: ONDANSETRON 4 MG TAB PO PRN (19:58)
[2018-11-16] MEDS ORDERED: ACETAMINOPHEN 325 MG TAB PO PRN (19:58)
[2018-11-16] MEDS ORDERED: ONDANSETRON INJ 2 MG/ML 2 ML VIAL IV PRN (19:58)
[2018-11-16] MEDS ORDERED: MAGNESIUM HYDROXIDE SUSP 30 ML UDC PO PRN (19:58)
[2018-11-16] MEDS ORDERED: PHARMACIST DISCHARGE MED REC CONSULT PRN (19:58)
[2018-11-16] MEDS ORDERED: FLUCONAZOLE 50 MG TAB PO ONE (20:15)
[2018-11-16] MEDS ORDERED: MONTELUKAST SODIUM 10 MG TABLET PO SCH (21:00)
[2018-11-16] MEDS: SODIUM CHLORIDE 0.45 % 1,000 ML IV SCH (21:36)
[2018-11-16] MEDS: BECLOMETHASONE DIP HFA 40 MCG 8.7G INH INH SCH (21:38)
[2018-11-16] MEDS: PANTOprazole 40 MG TAB PO SCH (21:38)
[2018-11-16] MEDS: HEPARIN SOD 5,000 UNIT/0.5 ML VIAL SQ SCH (21:39)
[2018-11-16] MEDS: ALPRAZolam 0.5 MG TABLET PO SCH (21:40)
[2018-11-17] MEDS: TRAMADOL HCL 50 MG TABLET PO PRN ×2 (01:15→07:41)
[2018-11-17 05:44] LABS: Basophils # (auto) 0.02 K/uL (0-0.2); Basophils % (auto) 0.3 %; Eosinophils # (auto) 0.12 K/uL (0-0.5); Eosinophils % (auto) 1.6 %; Hematocrit (blood only) 33.5 % (37-47); Hemoglobin 11.4 g/dL (12.0-16.0); Immature Granulocytes # (auto) 0.03 K/uL (0.00-0.02); Immature Granulocytes % (auto) 0.4 %; Lymphocytes # (auto) 1.61 K/uL (1.2-3.4); Mean Corpuscular Volume 93.1 fL (80-100); Mean Platelet Volume 8.8 fL (7.4-10.4); Monocytes # (auto) 0.67 K/uL (0.11-0.59); Monocytes % (auto) 8.7 %; Neutrophils # (auto) 5.23 K/uL (1.4-6.5); Platelet Count 229 K/uL (130-400); RDW Coefficient of Variation 13.2 % (11.5-14.5); RDW Standard Deviation 45.1 fL (36.4-46.3); White Blood Count 7.68 K/uL (4.8-10.8)
[2018-11-17 06:16] LABS: BUN Creatinine Ratio 12.1 (10-20); Calcium 8.5 mg/dl (8.5-10.1); Creatinine Clr Calc Pharmacy 33.7 ml/min; Est GFR (African American) 34.6; Est GFR (Non-African American) 29.8; Potassium 3.9 mmol/L (3.5-5.1)
[2018-11-17 06:27] LABS: Estimated Average Glucose 111 mg/dl; Hemoglobin A1C 5.5 % (4.5-5.6)
[2018-11-17] MEDS: HEPARIN SOD 5,000 UNIT/0.5 ML VIAL SQ SCH ×2 (06:40→13:11)
[2018-11-17] MEDS: ALPRAZolam 0.5 MG TABLET PO SCH ×2 (07:40→13:11)
[2018-11-17] MEDS: SODIUM CHLORIDE 0.45 % 1,000 ML IV SCH (07:41)
[2018-11-17] MEDS: BECLOMETHASONE DIP HFA 40 MCG 8.7G INH INH SCH (07:41)
[2018-11-17] MEDS: PANTOprazole 40 MG TAB PO SCH (07:42)
--- NOTE | 2018-11-17 07:49 | Magnetic Resonance Report ---
MR brain wo con HISTORY: 73 years-old Female subacute stroke and acute headache. COMPARISON: Head CT of same day. TECHNIQUE: Multiplanar multisequence MRI of the brain was obtained without the use of IV contrast. FINDINGS: Moto Mix Operator localizer images demonstrate no acute extracranial abnormality. The midline structures includin g the corpus callosum, brainstem, optic chiasm, pituitary and pineal glands appear unremarkable on th e sagittal T1 series. No cerebellar tonsillar herniation. Degenerative changes are noted about the im aged cervical spine. There is no restricted diffusion to suggest acute or subacute infarction. Mild a ge-related involutional changes. Mild scattered periventricular and subcortical T2/FLAIR hyperintensi ties are noted. A focal area of encephalomalacia with gliosis involves the nice radiata of the left frontal lobe compatible with area of remote infarct. There is no acute intracranial hemorrhage, midl ine shift, abnormal extra axial collections, hydrocephalus or intracranial mass. Major flow voids at the level of the skull base appear patent. Mastoid air cells are clear. Mild poly poid mucosal thickening about the inferior left maxillary sinus. Mild mucosal thickening of the ethmo id air cells with mild leftward bowing and spurring of the nasal septum. Soft tissues, orbits and sku ll appear unremarkable. IMPRESSION: 1. No acute or subacute infarction. 2. Findings suggest mild chronic microvascular ischemic disease. 3. Encephalomalacia and gliosis about the nice radiata of the left frontal lobe is compatible with area of remote infarct. The above report was generated using voice recognition software. It may contain grammatical, syntax o r spelling errors. Dictated: 11/17/2018 6:37 AM Transcribed: 11/17/2018 7:02 AM Margarita [id number] CIARRA_Avery Electronically signed by: Manan Barbosa M.D. 11/17/2018 7:47 AM
--- NOTE | 2018-11-17 08:24 | Neurology Consultation ---
Date of Consultation November 17, 2018 Assessment & Plan (1) Cerebrovascular disease: No evidence of acute or subacute stroke on follow-up MRI. Patient did not present with any focal or specific neurological signs or symptoms suggestive of stroke or TIA. The initial finding on CT of the head is most likely an area of encephalomalacia related to a chronic infarct that in speaking with the patient further is clinically asymptomatic. She does not recall ever presenting with a history of stroke or TIA. She does have a history of hypertension and did present with a significantly elevated blood pressure which may explain her headache. Her blood pressure does appear to be modestly improved this morning. Given the presence of a chronic infarct within the left cerebral hemisphere, however, I would recommend daily low-dose aspirin, 81 mg/day going forward. Improved long-term control of her blood pressure may be necessary as well. (2) Right carotid bruit: I do appreciate a right carotid bruit on examination this morning and will order a carotid ultrasound. However, if the carotid ultrasound reveals a moderate to significant stenosis then I think obtaining an MRA of the neck and head would be worthwhile. Would need to monitor renal function. If the carotid ultrasound and/or MRA reveals moderate or significant atherosclerotic change then I think starting a statin may be reasonable in spite of her relatively unremarkable lipid panel results, although her HDL is low normal and her total cholesterol is top normal. Please contact me if I may be of further assistance. History of Present Illness Reason for Consultation: possible subacute stroke on CTH Requesting Physician: Coty Juárez Attending Physician: Coty Juárez, DO History of Present Illness The patient is a 73-year old female who presented to the emergency department yesterday complaining of abdominal pain with associated dysuria and nausea which have been present for several days. She reports a history of similar recurrent symptoms related to urinary tract infection. She decided to come to the emergency department, yesterday, however after development of a global headache of moderate intensity. She denies experiencing any specific neurological symptoms such as vision loss, diplopia, changes in speech, sensory loss, or focal weakness. She denies a history of stroke or TIA. Past medical history is notable for hypertension and stage III kidney disease for which she has been following with Dr. John for the past few years. Her blood pressure was notably elevated last night with an upper reading of 192/106. Her current blood pressure is significantly improved, 147/56. Given this patient's headache yesterday, a CT of the head was completed in the emergency department which suggested a subacute left periventricular infarct. No hemorrhage. I reviewed the images as well as the radiologist interpretation of this test. However, a follow-up brain MRI completed overnight was negative for acute or subacute infarct. There is mild chronic microvascular ischemic disease as well as an area of encephalomalacia/gliosis within the nice radiata/left frontal lobe consistent with a remote infarct and likely corresponding to the area of suspected subacute infarct observed on CT of the head. I reviewed the images and radiologist interpretation of this test as well. Currently, the patient reports that her headache is significantly improved. She continues to deny experiencing any specific or focal neurological symptoms. Allergies Allergy/AdvReac Type Severity Reaction Status Date / Time Penicillins Allergy Unknown RASH TO Verified 11/16/18 16:40 AMOXIL, NO RESP PROBLEMS amoxicillin Allergy Hives Verified 11/16/18 20:15 Home Medications Home Medications Medication Instructions Recorded Confirmed Type alprazolam 1 mg PO TID 07/19/18 11/16/18 History beclomethasone dipropionate [Qvar 1 puff INHALATION BID 07/19/18 11/16/18 History RediHaler] benazepril 20 mg PO QAM 07/19/18 11/16/18 History calcitriol 0.25 mcg PO QAM 07/19/18 11/16/18 History fluoxetine 60 mg PO QAM 07/19/18 11/16/18 History fluticasone propionate 1 spray INTRANASAL QAM 07/19/18 11/16/18 History montelukast 10 mg PO HS 07/19/18 11/16/18 History pantoprazole 40 mg PO BID 07/19/18 11/16/18 History ondansetron HCl 4 mg tablet 4 mg PO Q8H PRN #7 tab 11/12/18 11/16/18 Rx Patient History Medical History Major depressive disorder (Chronic) GERD (gastroesophageal reflux disease) (Chronic) HTN (hypertension) (Chronic) Anxiety (Chronic) Chronic kidney disease (Chronic) Surgical History History of right knee joint replacement (Chronic) Family History Mother Heart disease Stroke Social History Preferred Language: Arabic Communication Ability: Effective Metal Hardener Required: No Beliefs That Will Affect Care: None Current Living Situation: Spouse Feels Safe at Home: Yes Smoking Status: Never smoker Hx Alcohol Use: No Hx Substance Use: No Review of Systems Constitutional: no fever and no chills Eyes: no blind spots and no diplopia Ear, Nose, Mouth, Throat: no tinnitus and no hearing loss Respiratory: no cough and no dyspnea Cardiovascular: no chest pain and no palpitations Gastrointestinal: as per Subjective / HPI, + bloating and + nausea Genitourinary: as per Subjective / HPI and + dysuria Musculoskeletal: no neck pain and no myalgia Integumentary: + rash and + lesions Neurologic: as per Subjective / HPI; no localized weakness and no loss of sensation Psychiatric: no depression and no anxiety Hematologic / Lymphatic: no easy bleeding and no easy bruising Physical Exam Physical Exam: The patient is a well-developed, well-nourished elderly female. She is alert and fully oriented. Recent and remote memory intact. Attention and concentration normal. Patient exhibits a normal spontaneous speech pattern as well as an age-appropriate fund of knowledge and normal comprehension of vocabulary. Visual min full to confrontation. Visual acuity normal. Pupils equal round react to light and accommodation. Eye movements normal. There is no nystagmus. Facial sensation intact. There is no facial droop or weakness. Hearing intact. Palate elevates to midline. Shoulder shrug intact. Tongue protrudes to midline. Sensation intact to all modalities in all 4 limbs. Deep tendon reflexes are 1+ for the arms and legs bilaterally, plantar responses downgoing bilaterally. There is no dysdiadochokinesia or dysmetria [id number] or [id number] bilaterally. Ophthalmoscopic examination reveals normal-appearing optic disks and posterior segments. No papilledema or hemorrhages. Carotid pulses normal bilaterally. There is a bruit with auscultation of the right carotid. No bruit on the left. Gait and station not tested due to safety concerns. Patient exhibits normal muscle strength and tone for all 4 limbs proximally and distally. No atrophy. No abnormal movements ob served. Results & Data Vital Signs (Past 12 Hours) Vital Signs Temp Pulse Resp BP Pulse Ox 11/17/18 07:00 36.9 C 97 H 16 147/56 H 94 11/17/18 04:06 37 C 78 20 137/59 L 96 11/17/18 03:08 37.0 C 78 16 153/82 H 98 11/16/18 23:42 36.3 C L 87 18 179/76 H 96 11/16/18 20:08 36.9 C 86 16 158/75 H 96 Laboratory Results WBC 7.68, hemoglobin 11.4, hematocrit 33.5, platelet count 229, sodium 140, potassium 3.9, BUN 21, creatinine 1.70, glucose 100, calcium 8.5, hemoglobin A1c 5.5, triglycerides 114, cholesterol 190, LDL 127, VLDL 23, HDL [address] of the head suggest the possibility of a subacute left periventricular infarct. Images and report reviewed and as described in history of present illness. MRI of the brain negative for acute or subacute infarct. There is mild chronic microvascular ischemic change as well as an area of encephalomalacia and gliosis about the nice radiata the left frontal lobe consistent with a chronic/remote infarct. Images and report reviewed and as described in the history of present illness. Electrocardiogram reveals a normal sinus rhythm, 98 bpm. PG Care Time/CCT Total # of Minutes Spent Total Time Spent with Patient: Total time spent is greater than 50% in coordination of care (as documented) at patient's floor/unit and/or counseling patient:
[2018-11-17] MEDS ORDERED: FLUTICASONE PROPIONATE NA SPR 16 GM BTL NAE SCH (09:00)
[2018-11-17] MEDS ORDERED: FLUOXETINE HCL 20 MG CAP PO SCH (09:00)
[2018-11-17] MEDS ORDERED: ENALAPRIL MALEATE 10 MG TAB PO SCH (09:00)
[2018-11-17] MEDS ORDERED: ASPIRIN 325 MG ECTAB PO SCH (09:00)
[2018-11-17] MEDS ORDERED: CALCITRIOL 0.25 MCG CAPSULE PO SCH (09:00)
[2018-11-17] MEDS ORDERED: CLOPIDOGREL BISULFATE 75 MG TAB PO SCH (09:00)
--- NOTE | 2018-11-17 14:30 | Ultrasound Report ---
US carotid doppler BI HISTORY: right carotid bruit COMPARISON: None. TECHNIQUE: Real-time, grayscale, and color Doppler sonography of the carotid arteries was performed. Imaging reviewed in the transverse and longitudinal planes. All measurements were calculated based on NASCET criteria. FINDINGS: Antegrade flow is seen in the bilateral vertebral arteries. The brachial pressures are hemodynamically similar. The peak systolic velocity within the right ICA is 216. The right systolic ratio is 2.7. The peak systolic velocity within the left ICA is 79. The left systolic ratio is 0.85 Increased velocity characteristics of the right external carotid artery at 239 cm/s.. IMPRESSION: 1. 60-70% stenosis right internal and right external carotid arteries. 2. Study is otherwise unremarkable. The above report was generated using voice recognition software. It may contain grammatical, syntax or spelling errors. Electronically signed by: George Otoole M.D. 11/17/2018 2:28 PM
[2018-11-17] MEDS ORDERED: STROKE PATIENT DISCHARGE STA (15:42)
--- NOTE | 2018-11-17 15:48 | Discharge Summary ---
Date of Service November 17, 2018 Admission HPI Per Admitting Provider 73 y/o F c/o feeling generally unwell. Pt states that she has felt unwell for the last few weeks. She always has nausea "on and off" but it has been worse recently. No emesis and she is able to eat breakfast, but the nausea gets worse throughout the day and her overall PO intake is low. She has been having repeat episodes of diarrhea. She states she always has loose stools but this has been more frequent and more loose. She gets headaches "on and off" but she has been having more recently and they have been more intense in the frontal region. She states that she was SOB today with coming out of the bathroom in the ED. She states that this AM she woke up with a burning in her urethra "like it was going to my bladder". No itching or discharge. It has been "on and off" for the last few weeks, but it has been constant since this AM. She also noted some anal burning today as well. She states that she has had no energy the last few weeks. 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 Pt was seen by Dr. John on Saturday due to feeling unwell. He alberto some labs and felt she was a bit dehydrated. She continued to feel unwell so she went to the walk in clinic and the doctor there sent her to the ED because she looked so unwell. Pt denies any periods of confusion, inability to use UE/LE, facial droop, slurred speech over the last few weeks. Pt states she takes an aspirin sometimes when she doesn't feel well, but no daily use. Pt denies fever, chest pain, abd pain, LE pain or swelling. Principal Diagnosis Pt is feeling much improved. She feels anxious about being in the hospital and feels she would do much better at home. She has been able to eat without much nausea. She does get some about 30 minutes after eating, but this is more her usual and much improved from recently. She still has a slight headache but it is not persistent. She has had no further diarrhea since admission. The burning that pt felt was moving to her bladder is not quite gone, but almost. Pt denies fever, SOB, chest pain, abd pain, LE pain or swelling. Discharge Exam Constitutional WD/WN, vitals as above Eyes normal visual min by confrontation and + anicteric sclerae Neck normal visual inspection and trachea midline Respiratory normal respiratory effort, lungs clear to auscultation Cardiovascular Rate/Rhythm: regular rate and regular rhythm Gastrointestinal (Abdomen) Inspection/Auscultation: abdomen not distended Percussion/Palpation: abdomen soft; abdomen nontender Musculoskeletal Head/Neck/Chest: normocephalic and head atraumatic Skin no rashes, warm and dry Neurologic awake; not confused Speech / Cognition: normal speech Psychiatric A+Ox3, euthymic affect Discharge Data Allergies Allergy/AdvReac Type Severity Reaction Status Date / Time Penicillins Allergy Unknown RASH TO Verified 11/16/18 16:40 AMOXIL, NO RESP PROBLEMS amoxicillin Allergy Hives Verified 11/16/18 20:15 Consultations 11/16/18 17:48 ED Decision to Admit Stat 11/16/18 19:58 Consult Case Management - Discharge Planning Routine Consult Case Management - Discharge Planning Routine Consult Neurology Routine Ordered Studies 11/16/18 16:19 CT abd pelvis wo con Stat CT head/brain wo con Stat 11/16/18 19:58 MR brain wo con Routine 11/17/18 08:26 US carotid doppler BI Routine Hospital Course (1) Stroke: CT noted for subacute stroke Pt has had no "classic" stroke sx recently, but has had a worsening of headache, n/d, and generally feeling unwell MRI neg for subacute or acute stroke. Does show a region in the frontal lobe that may be a remote infarct Start aspirin 81mg Neuro agreed with current plan Carotid US noted for 60-70% stentosis, aspirin 81mg will be adequate Lipid panel is WNL with LDL 127 and HDL 40 Could consider statin therapy, however pt would prefer to hold on this for now A1c 5.5 (2) Nausea: worsening nausea with diarrhea prior to admission, much improved s/p IVF CTAP neg for acute Cdiff was ordered on admission but no specimen received prior to d/c making cdiff an unlikely cause of diarrhea Advised for probiotic use (3) Burning pain: Urinary burning noted Hx of UTIs, but not recently UA neg, cx pending at d/c Sx are much improved s/p single dose diflucan (4) GERD (gastroesophageal reflux disease): continue home meds (5) HTN (hypertension): continue home meds (6) Anxiety: continue home meds (7) Chronic kidney disease: Cr is 1.7, which is around her baseline of 1.6-1.7 Improved from 1.9 last week (8) Depression: continue home meds (9) DVT prophylaxis: Heparin for DVT proph Total Time Total Time Spent Total Time Spent (In Minutes): >30 Discharge Plan Discharge Items Patient Disposition: Home - Self-Care Reason For Visit: SUBACUTE STROKE Discharge Diagnosis: Dehydration Discharge Goals: Decrease discomfort, Diagnostic testing and Increase independence Activity: Resume your previous activity Non-emergency contact: Primary Care Provider Call non-emergency contact if: you have any medication questions and your symptoms worsen Follow-up/Referrals: Neri Denson MD [Primary Care Provider] - 11/24/18 3:30 pm (Please, follow up at Dr. Denson's office with his associate, Dr. Mathis, on SaturdayNovember 24 at 3:30 pm. *If you need to change this appointment, call their office at [phone].) Diet: See below Addtl Provider Instructions: You should start taking an aspirin 81mg daily You should start taking a multi-strain probiotic. A good option is Jarrow EPS 5billion. Start with 1 per day. It is available at [employer] in [place] You should follow the cardiometabolic diet handout that we discussed Prescriptions: New aspirin [Aspirin Low Dose] 81 mg tablet,delayed release (DR/EC) 81 mg PO DAILY Qty: 30 RF: 1 Continued ondansetron HCl [Zofran] 4 mg tablet 4 mg PO Q8H PRN (Reason: nausea and vomiting) Qty: 7 RF: 0 alprazolam 1 mg tablet 1 mg PO TID RF: 0 pantoprazole 40 mg tablet,delayed release (DR/EC) 40 mg PO BID RF: 0 benazepril 20 mg tablet 20 mg PO QAM RF: 0 montelukast 10 mg tablet 10 mg PO HS RF: 0 fluoxetine 20 mg capsule 60 mg PO QAM RF: 0 fluticasone propionate 50 mcg/actuation spray,suspension 1 spray intranasal QAM RF: 0 calcitriol 0.25 mcg capsule 0.25 mcg PO QAM RF: 0 Qvar RediHaler 40 mcg/actuation HFA aerosol breath activated 1 puff inhalation BID RF: 0 Stand-Alone Forms: Call Back Authorization, [facility] Discharge Orders: Discharge Order (Routine); Ordered 11/17/18 Ordered By: Coty Juárez Admission Data Admit Date/Time: 11/16/18 18:25 Attending Provider: Coty Juárez Admit Provider: Coty Juárez Primary Care Provider: Neri Denson Other Providers: Coty Juárez ; Audie Pan Service: Telemetry Other Pending Studies at Discharge: Yes (urine culture)
== END 2018-11-17 18:26 | disposition home or self-care (01) | DRG 65 ==
LOC: ED 16:06 → 2E 18:25
DX: I12.9 Hypertensive chronic kidney disease with stage 1 through stage 4 chronic kidney disease, or unspecified chronic kidney disease; Z88.0 Allergy status to penicillin; N18.4 Chronic kidney disease, stage 4 (severe); F32.9 Major depressive disorder, single episode, unspecified; I63.9 Cerebral infarction, unspecified; Z68.42 Body mass index [BMI] 45.0-49.9, adult; Z79.899 Other long term (current) drug therapy; K21.9 Gastro-esophageal reflux disease without esophagitis; E86.0 Dehydration; Z82.49 Family history of ischemic heart disease and other diseases of the circulatory system; Z82.3 Family history of stroke; Z88.1 Allergy status to other antibiotic agents; Z96.651 Presence of right artificial knee joint; E66.01 Morbid (severe) obesity due to excess calories

== ENCOUNTER 2018-11-22 20:54 | Inpatient (IN) ==
[2018-11-22] MEDS ORDERED: ONDANSETRON INJ 2 MG/ML 2 ML VIAL IV STA (21:28)
[2018-11-22] MEDS ORDERED: KETOROLAC TROMETHAMINE 15 MG/ML VIAL IV STA (21:28)
[2018-11-22] MEDS ORDERED: PROMETHAZINE HCL 6.25 MG in SODIUM CHLORIDE 0.9% 50 ML IV STA (21:28)
[2018-11-22] MEDS ORDERED: DiphenhydrAMINE HCL 50 MG/ML VIAL IV STA (21:28)
[2018-11-22] MEDS ORDERED: SODIUM CHLORIDE 0.9% 1000ML 1,000 ML IV SCH (21:30)
[2018-11-22] MEDS ORDERED: PROMETHAZINE 12.5 MG/50.5 ML NSS IV ONE (21:46)
[2018-11-22 22:08] LABS: Albumin Level 3.8 gm/dl (3.4-5.0); BUN Creatinine Ratio 16.7 (10-20); Calcium 9.4 mg/dl (8.5-10.1); Creatinine Clr Calc Pharmacy 28.2 ml/min; Est GFR (African American) 28.2; Est GFR (Non-African American) 24.4; Potassium 4.9 mmol/L (3.5-5.1)
[2018-11-22 22:11] LABS: Bilirubin,Total 0.5 mg/dl (0.2-1); Globulin 3.6 gm/dl (2.5-4.0); Total Protein 7.4 gm/dl (6.4-8.2)
--- NOTE | 2018-11-22 22:11 | Emergency Department Note ---
Entered by Puma Murillo acting as a scribe for History of Present Illness General Chief complaint: Headache Stated complaint: HEADACHE, SHAKEY, DIARRHEA, NAUSEA Time Seen by Provider: 11/22/18 21:19 Source: patient History of Present Illness Provider complaint: Headache Onset (ago): week(s) 1 Location: head Pain Consistency: + intermittent Maximum Pain Intensity: 5 Current Pain Intensity: 5 Quality: + other (Tingling, soreness ) Relieved By: + medication Exacerbated By: + none Associated symptoms: + nausea/vomiting, + weakness and + other (Positive neck pain ); no chest pain and no shortness of breath The patient is a 73 year old female who presents to the Emergency Room with complaints of an intermittent headache over the past week. The patient rates the pain as a 5/10 and notes nothing seems to make it worse. The patient was recently discharged on November 17 after having a subacute stroke, per her medical records. The patient states that she had a CT scan done while in the hospital that showed a possible stroke, however the MRI did not show any new changes. Currently, the patient describes the headache as a tingling sensation as well as soreness behind the eyes. The patient also feels generally weak but notes it is not localized to one side. She also noted that after the onset of her headache she became nauseous and did vomit, but these symptoms were relieved after taking Zofran. The patient states she does have diarrhea, however this has been present for the past 2 weeks. She notes she moves her bowels about 4 times per day and denies any hematochezia. The patient mentioned that she was originally sent here by her doctor because her blood pressure was too elevated. She states she has taken all of her medications and has not missed any doses. The patient reports that she did take a Tylenol about 1.5 hours ago as well as a Xanax just prior to arrival but her symptoms persist. The patient denies any chest pain or shortness of breath. Home Medications Home Medications Medication Instructions Recorded Confirmed Type Qvar RediHaler 1 puff INHALATION BID 07/19/18 11/23/18 History alprazolam 1 mg PO TID 07/19/18 11/23/18 History benazepril 20 mg PO QAM 07/19/18 11/23/18 History calcitriol 0.25 mcg PO QAM 07/19/18 11/23/18 History fluoxetine 60 mg PO QAM 07/19/18 11/23/18 History fluticasone propionate 1 spray INTRANASAL QAM 07/19/18 11/23/18 History montelukast 10 mg PO HS 07/19/18 11/23/18 History pantoprazole 40 mg PO BID 07/19/18 11/23/18 History ondansetron HCl 4 mg tablet 4 mg PO Q8H PRN #7 tab 11/12/18 11/23/18 Rx albuterol sulfate HFA 90 2 puffs INHALATION Q4H PRN #1 gm 11/19/18 11/23/18 History mcg/actuation aerosol inhaler furosemide 20 mg tablet 20 mg PO Q OTHER DAY #30 tab 11/19/18 11/23/18 History aspirin [Aspirin Low Dose] 81 mg PO DAILY 11/23/18 11/23/18 History Allergies Allergy/AdvReac Type Severity Reaction Status Date / Time Penicillins Allergy Unknown RASH TO Verified 11/16/18 16:40 AMOXIL, NO RESP PROBLEMS amoxicillin Allergy Hives Verified 11/16/18 20:15 Past Med/Surg History Medical History Major depressive disorder (Chronic) GERD (gastroesophageal reflux disease) (Chronic) HTN (hypertension) (Chronic) Anxiety (Chronic) Chronic kidney disease (Chronic) Surgical History History of right knee joint replacement (Chronic) Family History Mother Heart disease Stroke Social History Preferred Language: Pakistani Communication Ability: Effective Suture Winder Hand Required: No Beliefs That Will Affect Care: None Current Living Situation: Spouse Feels Safe at Home: Yes Smoking Status: Never smoker Hx Alcohol Use: No Hx Substance Use: No Review of Systems See HPI for pertinent positives & negatives. and A total of 10 systems reviewed and were otherwise negative Physical Exam Vital Signs Vital Signs - 24 hr 11/22/18 20:59 11/22/18 22:17 11/22/18 22:30 Temperature 36.7 C Temperature Source Oral Sepsis Recent Fever Within 48 Hours No Sepsis Action Taken by Nursing No Action Required Pulse Rate 89 62 62 Pulse Rate from SpO2 Sensor 62 62 Respiratory Rate 20 20 20 Respiratory Effort / Characteristics Non-Labored Spontaneous Respiratory Depth Normal Blood Pressure 192/89 H 132/70 133/64 Blood Pressure Mean 123 90 87 Pulse Oximetry 97 95 96 Oxygen Delivery Method Room Air GENERAL: Patient is in no acute distress. HEENT: No acute trauma, normocephalic atraumatic, mucous membranes moist, no nasal congestion, no scleral icterus. NECK: No stridor, no adenopathy, no meningismus, trachea is midline. LUNGS: Clear to auscultation bilaterally, no wheeze, no rhonchi, breath sounds equal. HEART: 2/6 systolic murmur. Regular rate and rhythm. ABDOMEN: Soft, nontender, bowel sounds positive, no hernias, no peritonitis. EXTREMITIES: No cyanosis or edema, full range of motion of all the joints without pain or difficulty, no signs for acute trauma. NEUROLOGIC: Oriented x 3, no acute motor or sensory deficits, no focal weakness. No cerebellar deficits or speech slur. SKIN: No rash, no jaundice, no diaphoresis. Course 2122: Past medical records reviewed. The patient was evaluated in room B09, and a complete history and physical examination were performed. 2301: I reevaluated the patient and she is no longer in pain. We discussed the results and treatment plan. The patient agreed with the plan. 2318: I spoke to Dr. Bermudez [facility] Hospitalist about the patient's case. He will be accepting the patient for further evaluation. Consultations Consultation #1: [facility]. He will be accepting the patient for further evaluation. Time: 23:18 Administered Medications Discontinued Medications Diphenhydramine HCl (Benadryl) 25 mg IV NOW STA Stop: 11/22/18 21:29 Last Admin: 11/22/18 21:49 Dose: 25 mg Documented by: [id number] Promethazine HCl 6.25 mg/ (Sodium Chloride) 50.25 mls @ 201 mls/hr IV NOW STA Stop: 11/22/18 21:42 Last Admin: 11/22/18 21:50 Dose: Not Given Documented by: [id number] Sodium Chloride (Nss 1000ml) 1,000 mls @ 999 mls/hr IV .Q1H1M MONSE Stop: 11/22/18 22:30 Last Infusion: 11/22/18 23:02 Dose: 0 mls/hr Documented by: [id number] Admin: 11/22/18 21:52 Dose: 999 mls/hr Documented by: [id number] Ketorolac Tromethamine (Toradol) 10 mg IV ONE STA Stop: 11/22/18 21:29 Last Admin: 11/22/18 21:48 Dose: 10 mg Documented by: [id number] Ondansetron HCl (Zofran) 4 mg IV NOW STA Stop: 11/22/18 21:29 Last Admin: 11/22/18 21:49 Dose: 4 mg Documented by: [id number] Promethazine HCl (Phenergan) Confirm Administered Dose 12.5 mg IV .STK-MED ONE Stop: 11/22/18 21:47 Last Admin: 11/22/18 21:50 Dose: 6.25 mg Documented by: [id number] Medical Decision Making Differential Diagnosis Differential Diagnosis includes: Tension headache, migraine headache, intracranial bleeding, UTI, dehydration, renal failure, electrolyte imbalance, and anxiety, amongst others. Medical Records Attestation: I reviewed the patient's medical records. Home Medications Current Medication List: was personally reviewed by me Laboratory Data Attestation: I reviewed the patient's lab results. Result diagrams: 11/22/18 21:34 11/22/18 21:34 Lab Results 11/22/18 11/22/18 11/22/18 Range/Units 21:34 21:34 21:42 WBC 8.09 (4.8-10.8) K/uL RBC 3.85 L (4.2-5.4) M/uL Hgb 12.3 (12.0-16.0) g/dL Hct 35.7 L (37-47) % MCV 92.7 (80-100) fL MCH 31.9 (25-34) pg MCHC 34.5 (32-36) g/dL RDW Std Deviation 44.8 (36.4-46.3) fL RDW Coeff of Chauncey 13.3 (11.5-14.5) % Plt Count 278 (130-400) K/uL MPV 9.5 (7.4-10.4) fL Immature Gran % (Auto) 0.6 % Neut % (Auto) 64.8 % Lymph % (Auto) 21.4 % Major % (Auto) 10.1 % Eos % (Auto) 2.7 % Baso % (Auto) 0.4 % Immature Gran # (Auto) 0.05 H (0.00-0.02) K/uL Neut # (Auto) 5.24 (1.4-6.5) K/uL Lymph # (Auto) 1.73 (1.2-3.4) K/uL Major # (Auto) 0.82 H (0.11-0.59) K/uL Eos # (Auto) 0.22 (0-0.5) K/uL Baso # (Auto) 0.03 (0-0.2) K/uL Sodium 128 L (136-145) mmol/L Potassium 4.9 (3.5-5.1) mmol/L Chloride 92 L (98-107) mmol/L Carbon Dioxide 30 (21-32) mmol/L Anion Gap 6.0 (3-11) BUN 34 H (7-18) mg/dl Creatinine 2.01 H (0.6-1.2) mg/dl Est Cr Clr Drug Dosing 28.2 ml/min Est GFR ( Amer) 28.2 Est GFR (Non-Af Amer) 24.4 BUN/Creatinine Ratio 16.7 (10-20) Glucose 108 H (70-99) mg/dl Osmolality 277 L (280-300) mOsm/kg Calcium 9.4 (8.5-10.1) mg/dl Magnesium 2.0 (1.8-2.4) mg/dl Total Bilirubin 0.5 (0.2-1) mg/dl AST 13 L (15-37) U/L ALT 22 (12-78) U/L Alkaline Phosphatase 58 (45-117) U/L Total Protein 7.4 (6.4-8.2) gm/dl Albumin 3.8 (3.4-5.0) gm/dl Globulin 3.6 (2.5-4.0) gm/dl Albumin/Globulin Ratio 1.0 (0.9-2) Urine Color Urine Appearance (Clear) Urine pH (4.5-7.5) Ur Specific Imperial (1.000-1.030) Urine Protein (Negative) Urine Glucose (UA) (Negative) Urine Ketones (Negative) Urine Blood (Negative) Urine Nitrite (Negative) Urine Bilirubin (Negative) Urine Urobilinogen (Negative) Ur Leukocyte Esterase (Negative) Urine Osmolality (500-800) mOsm/kg 11/22/18 11/22/18 Range/Units 22:25 22:25 WBC (4.8-10.8) K/uL RBC (4.2-5.4) M/uL Hgb (12.0-16.0) g/dL Hct (37-47) % MCV (80-100) fL MCH (25-34) pg MCHC (32-36) g/dL RDW Std Deviation (36.4-46.3) fL RDW Coeff of Chauncey (11.5-14.5) % Plt Count (130-400) K/uL MPV (7.4-10.4) fL Immature Gran % (Auto) % Neut % (Auto) % Lymph % (Auto) % Major % (Auto) % Eos % (Auto) % Baso % (Auto) % Immature Gran # (Auto) (0.00-0.02) K/uL Neut # (Auto) (1.4-6.5) K/uL Lymph # (Auto) (1.2-3.4) K/uL Major # (Auto) (0.11-0.59) K/uL Eos # (Auto) (0-0.5) K/uL Baso # (Auto) (0-0.2) K/uL Sodium (136-145) mmol/L Potassium (3.5-5.1) mmol/L Chloride (98-107) mmol/L Carbon Dioxide (21-32) mmol/L Anion Gap (3-11) BUN (7-18) mg/dl Creatinine (0.6-1.2) mg/dl Est Cr Clr Drug Dosing ml/min Est GFR ( Amer) Est GFR (Non-Af Amer) BUN/Creatinine Ratio (10-20) Glucose (70-99) mg/dl Osmolality (280-300) mOsm/kg Calcium (8.5-10.1) mg/dl Magnesium (1.8-2.4) mg/dl Total Bilirubin (0.2-1) mg/dl AST (15-37) U/L ALT (12-78) U/L Alkaline Phosphatase (45-117) U/L Total Protein (6.4-8.2) gm/dl Albumin (3.4-5.0) gm/dl Globulin (2.5-4.0) gm/dl Albumin/Globulin Ratio (0.9-2) Urine Color Yellow Urine Appearance Clear (Clear) Urine pH 6.5 (4.5-7.5) Ur Specific Imperial 1.007 (1.000-1.030) Urine Protein Negative (Negative) Urine Glucose (UA) Negative (Negative) Urine Ketones Negative (Negative) Urine Blood Negative (Negative) Urine Nitrite Negative (Negative) Urine Bilirubin Negative (Negative) Urine Urobilinogen Negative (Negative) Ur Leukocyte Esterase Negative (Negative) Urine Osmolality 171 L (500-800) mOsm/kg Imaging Data Radiologist's Impression: Radiology results as stated below per my review and the radiologist's interpretation: CT head/brain wo con CLINICAL HISTORY: 73 years-old Female with Headache. Acute headache TECHNIQUE: Multiple axial CT images of the head were obtained without contrast. A dose lowering technique was utilized adhering to the principles of ALARA. CT DOSE: 601.98 mGy.cm COMPARISON: Head CT 11/16/2018. FINDINGS: No acute intracranial hemorrhage, midline shift, intracranial mass, hydrocep halus, territorial ischemia or abnormal extra-axial collection. Hypodense focus of the centrum semiovale and nice radiata left frontal lobe is again noted suggestive of an area of remote infarct. Mild patchy white matter hypodensities suggests chronic vascular ischemic disease. Mild age-related involutional change. The calvarium is intact. The paranasal sinuses, mastoid air cells, and middle e ar cavities are clear. IMPRESSION: 1. Mild chronic microvascular ischemic changes without acute intracranial abnormality. 2. 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 The above report was generated using voice recognition software. It may contain grammatical, syntax or spelling errors. Electronically signed by: Manan Barbosa M.D. 11/22/2018 10:24 PM Blood Pressure Blood Pressure Findings: Elevated blood pressure Blood Pressure Disposition: further management by hospitalist [facility] Narrative There is no leukocytosis or concerning anemia. Renal panel testing does show hyponatremia with a sodium of 128. Creatinine was elevated above her baseline at 2.01. There was no elevation to the liver enzymes. Urinalysis did not show evidence for infection. Brain CT showed some chronic change, no acute bleed or mass-effect. On exam, there were no focal neurologic deficits. The patient was not febrile or toxic. She was hypertensive. The patient received IV Toradol, IV Benadryl, IV Zofran, IV Phenergan and IV saline, she is feeling better, her blood pressure is lower and better controlled. Patient presents with weakness, nausea, fatigue and headache. She is quite hyponatremic and this is likely a good part of her issue today. She has some acute kidney injury. I did speak with case management, hospitalization was felt warranted. The on-call hospitalist was consulted. Impression & Plan Hyponatremia, Weakness, Headache, ELLY (acute kidney injury) Discharge Plan Visit Data Chief Complaint: Headache Stated Complaint: HEADACHE, SHAKEY, DIARRHEA, NAUSEA ED Provider: Ryan Black Discharge Problem: Hyponatremia, Weakness, Headache, ELLY (acute kidney injury) Patient Disposition: Being Evaluated by Hospitalist Forms Stand Alone Forms: My [facility] Prescriptions Prescriptions: No Action ondansetron HCl [Zofran] 4 mg tablet 4 mg PO Q8H PRN (Reason: nausea and vomiting) Qty: 7 RF: 0 furosemide 20 mg tablet 20 mg PO Q OTHER DAY Qty: 30 RF: 0 albuterol sulfate 90 mcg/actuation HFA aerosol inhaler 2 puffs inhalation Q4H PRN (Reason: shortness of breath or wheezing) Qty: 1 RF: 0 alprazolam 1 mg tablet 1 mg PO TID RF: 0 pantoprazole 40 mg tablet,delayed release (DR/EC) 40 mg PO BID RF: 0 benazepril 20 mg tablet 20 mg PO QAM RF: 0 montelukast 10 mg tablet 10 mg PO HS RF: 0 fluoxetine 20 mg capsule 60 mg PO QAM RF: 0 fluticasone propionate 50 mcg/actuation spray,suspension 1 spray intranasal QAM RF: 0 calcitriol 0.25 mcg capsule 0.25 mcg PO QAM RF: 0 Qvar RediHaler 40 mcg/actuation HFA aerosol breath activated 1 puff inhalation BID RF: 0 aspirin [Aspirin Low Dose] 81 mg tablet,delayed release (DR/EC) 81 mg PO DAILY RF: 0 Referrals Referrals: Neri Denson MD [Primary Care Provider] - Discharge Problem: Headache Qualifiers: Headache type: unspecified Headache chronicity pattern: unspecified pattern Intractability: not intractable Qualified Code(s): R51 - Headache The scribe's documentation has been prepared under my direction and personally reviewed by me in its entirety. I confirm that the note above accurately reflects all work, treatment, procedures, and medical decision making performed by me.
[2018-11-22 22:22] LABS: Hematocrit (blood only) 35.7 % (37-47); Hemoglobin 12.3 g/dL (12.0-16.0); Mean Corpuscular Hgb Conc 34.5 g/dL (32-36); Mean Corpuscular Volume 92.7 fL (80-100); Mean Platelet Volume 9.5 fL (7.4-10.4); Platelet Count 278 K/uL (130-400); RDW Coefficient of Variation 13.3 % (11.5-14.5); RDW Standard Deviation 44.8 fL (36.4-46.3); Red Blood Count 3.85 M/uL (4.2-5.4); White Blood Count 8.09 K/uL (4.8-10.8)
--- NOTE | 2018-11-22 22:27 | CT Scan Report ---
CT head/brain wo con CLINICAL HISTORY: 73 years-old Female with Headache. Acute headache TECHNIQUE: Multiple axial CT images of the head were obtained without contrast. A dose lowering tech nique was utilized adhering to the principles of ALARA. CT DOSE: 601.98 mGy.cm COMPARISON: Head CT 11/16/2018. FINDINGS: No acute intracranial hemorrhage, midline shift, intracranial mass, hydrocephalus, territorial ischem ia or abnormal extra-axial collection. Hypodense focus of the centrum semiovale and nice radiata le ft frontal lobe is again noted suggestive of an area of remote infarct. Mild patchy white matter hypo densities suggests chronic vascular ischemic disease. Mild age-related involutional change. The calvarium is intact. The paranasal sinuses, mastoid air cells, and middle ear cavities are clear . IMPRESSION: 1. Mild chronic microvascular ischemic changes without acute intracranial abnormality. 2. 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 The above report was generated using voice recognition software. It may contain grammatical, syntax o r spelling errors. Electronically signed by: Manan Barbosa M.D. 11/22/2018 10:24 PM
[2018-11-22 22:35] LABS: Appearance Urine Clear (Clear); Bilirubin Urine Negative (Negative); Blood Urine Negative (Negative); Color Urine Yellow; Glucose Urine UA Negative (Negative); Ketones Urine Negative (Negative); Leukocyte Esterase Urine Negative (Negative); Nitrite Urine Negative (Negative); Protein Urine Negative (Negative); Specific Gravity Urine 1.007 (1.000-1.030); Urobilinogen Urine Negative (Negative); pH Urine 6.5 (4.5-7.5)
[2018-11-22 22:47] LABS: Basophils # (auto) 0.03 K/uL (0-0.2); Basophils % (auto) 0.4 %; Eosinophils # (auto) 0.22 K/uL (0-0.5); Eosinophils % (auto) 2.7 %; Immature Granulocytes # (auto) 0.05 K/uL (0.00-0.02); Immature Granulocytes % (auto) 0.6 %; Lymphocytes # (auto) 1.73 K/uL (1.2-3.4); Lymphocytes % (auto) 21.4 %; Monocytes # (auto) 0.82 K/uL (0.11-0.59); Monocytes % (auto) 10.1 %; Neutrophils # (auto) 5.24 K/uL (1.4-6.5); Neutrophils % (auto) 64.8 %
--- NOTE | 2018-11-23 01:59 | History & Physical Report ---
Date of Service November 23, 2018 Assessment & Plan (1) Hyponatremia: 73-year-old female with recent admission for nausea and diarrhea presents with recurrent nausea and diarrhea which started yesterday. Found to have hyponatremia likely in the setting of diarrhea and significant water intake without electrolyte repletion. Past medical history: Stroke, GERD, hyper hypertension, anxiety, CKD, depression, asthma Hyponatremia likely secondary to diarrhea and significant fluid intake without electrolyte repletion Corrected sodium 128 Serum molality 277 and urine osmolality 171 -rules out SIADH On IV fluids 80 cc normal saline per hour Continue to monitor BMP Diarrhea/nausea Presented previous admission and improved with IV fluids, C. difficile at that time was negative and abdominal CT was negative on 11/16/2018 Afebrile, WBC within normal limits C. difficile ordered Repeat imaging deferred as no significant abdominal pain On Zofran as needed ELLY in the setting of CKD BUN/creatinine 34/2.0, GFR 24 Baseline creatinine 1.7 UA negative Continue monitor BMP History of CVA CT head unchanged: Chronic mild microvascular ischemic changes without acute abnormality. Unchanged hypodense focus left centrum semi-ovale and nice radiata left frontal lobe likely encephalomalacia related to remote lacunar infarct Continue home aspirin Hypertension Hold home Lasix and benazepril in the setting of ELLY Hydralazine as needed History of asthma:? Continue home Qvar and albuterol and montelukast GERD continue home pantoprazole Anxiety/depression Continue home fluoxetine and alprazolam DVT prophylaxis: Heparin Code: Full per discussion with patient and DISPO: MedSurg telemetry (2) Headache: (3) ELLY (acute kidney injury): (4) Cerebrovascular disease: (5) Nausea: (6) Depression: (7) Stroke: (8) GERD (gastroesophageal reflux disease): (9) HTN (hypertension): (10) Anxiety: (11) Chronic kidney disease: (12) Diarrhea: History of Present Illness Chief Complaint: nausea/diarrhea Primary Care Provider: Neri Denson MD 73-year-old female with recent admission for nausea and diarrhea presents with recurrent nausea and diarrhea which started yesterday. Reports has been on and off for the past 3 to 4 weeks. This episode associated with significant gas with a very bad odor, abdominal pain with diarrhea, headache today shooting in nature and associated with back and neck soreness, lightheadedness. Dysuria from previous admission has improved. Denies any vomiting, fever, chills, chest pain, shortness of breath, hematochezia, melena, hematuria. Reports drinking about 3 pints of water today. Has been eating well since discharge on 11/18/18 and reports symptoms had improved until yesterday. Past medical history: Stroke, GERD, hyper hypertension, anxiety, CKD, depression, asthma Allergies Allergy/AdvReac Type Severity Reaction Status Date / Time Penicillins Allergy Unknown RASH TO Verified 11/16/18 16:40 AMOXIL, NO RESP PROBLEMS amoxicillin Allergy Hives Verified 11/16/18 20:15 Home Medications Home Medications Medication Instructions Recorded Confirmed Type Qvar RediHaler 1 puff INHALATION BID 07/19/18 11/23/18 History alprazolam 1 mg PO TID 07/19/18 11/23/18 History benazepril 20 mg PO QAM 07/19/18 11/23/18 History calcitriol 0.25 mcg PO QAM 07/19/18 11/23/18 History fluoxetine 60 mg PO QAM 07/19/18 11/23/18 History fluticasone propionate 1 spray INTRANASAL QAM 07/19/18 11/23/18 History montelukast 10 mg PO HS 07/19/18 11/23/18 History pantoprazole 40 mg PO BID 07/19/18 11/23/18 History ondansetron HCl 4 mg tablet 4 mg PO Q8H PRN #7 tab 11/12/18 11/23/18 Rx albuterol sulfate HFA 90 2 puffs INHALATION Q4H PRN #1 gm 11/19/18 11/23/18 History mcg/actuation aerosol inhaler furosemide 20 mg tablet 20 mg PO Q OTHER DAY #30 tab 11/19/18 11/23/18 History aspirin [Aspirin Low Dose] 81 mg PO DAILY 11/23/18 11/23/18 History Past Med/Surg History Medical History Major depressive disorder (Chronic) GERD (gastroesophageal reflux disease) (Chronic) HTN (hypertension) (Chronic) Anxiety (Chronic) Chronic kidney disease (Chronic) Surgical History History of right knee joint replacement (Chronic) Family History Mother Heart disease Stroke Social History Preferred Language: Italian Communication Ability: Effective Photogrammetric Tech Required: Yes and No Beliefs That Will Affect Care: None Current Living Situation: Spouse Other Information That Helps Us Care for You: No Feels Safe at Home: Yes Safety Concerns: Feels Safe At This Time Smoking Status: Never smoker Hx Alcohol Use: No Hx Substance Use: No Review of Systems Review of Systems: As per HPI Physical Exam Physical Exam: General: In NAD Neuro: A&O x 4 Pulm: CTAB equal breath sounds bilaterally CV: RRR, no m/r/g Abdomen:+BS, mildly TTP in all quadrants, tympanic, obese abdomen LE: no LE edema, no calf TTP Results & Data Vital Signs (Past 12 Hours) Vital Signs Temp Pulse Resp BP Pulse Ox 11/23/18 00:30 82 14 161/70 H 99 11/23/18 00:00 77 16 164/59 H 97 11/22/18 23:30 80 19 173/70 H 92 11/22/18 23:00 62 26 H 151/85 H 99 11/22/18 22:30 62 20 133/64 96 11/22/18 22:17 62 20 132/70 95 11/22/18 20:59 36.7 C 89 20 192/89 H 97 Laboratory Results Abnormal lab results 11/22/18 11/22/18 11/22/18 Range/Units 21:34 21:34 21:42 RBC 3.85 L (4.2-5.4) M/uL Hct 35.7 L (37-47) % Immature Gran # (Auto) 0.05 H (0.00-0.02) K/uL [place] # (Auto) 0.82 H (0.11-0.59) K/uL Sodium 128 L (136-145) mmol/L Chloride 92 L (98-107) mmol/L BUN 34 H (7-18) mg/dl Creatinine 2.01 H (0.6-1.2) mg/dl Glucose 108 H (70-99) mg/dl Osmolality 277 L (280-300) mOsm/kg AST 13 L (15-37) U/L Urine Osmolality (500-800) mOsm/kg 11/22/18 Range/Units 22:25 RBC (4.2-5.4) M/uL Hct (37-47) % Immature Gran # (Auto) (0.00-0.02) K/uL [place] # (Auto) (0.11-0.59) K/uL Sodium (136-145) mmol/L Chloride (98-107) mmol/L BUN (7-18) mg/dl Creatinine (0.6-1.2) mg/dl Glucose (70-99) mg/dl Osmolality (280-300) mOsm/kg AST (15-37) U/L Urine Osmolality 171 L (500-800) mOsm/kg Diagnostic Findings CT head/brain wo con CLINICAL HISTORY: 73 years-old Female with Headache. Acute headache TECHNIQUE: Multiple axial CT images of the head were obtained without contrast. A dose lowering technique was utilized adhering to the principles of ALARA. CT DOSE: 601.98 mGy.cm COMPARISON: Head CT 11/16/2018. FINDINGS: No acute intracranial hemorrhage, midline shift, intracranial mass, hydrocephalus, territorial ischemia or abnormal extra-axial collection. Hypodense focus of the centrum semiovale and nice radiata left frontal lobe is again noted suggestive of an area of remote infarct. Mild patchy white matter hypodensities suggests chronic vascular ischemic disease. Mild age-related involutional change. The calvarium is intact. The paranasal sinuses, mastoid air cells, and middle ear cavities are clear. IMPRESSION: 1. Mild chronic microvascular ischemic changes without acute intracranial abnormality. 2. 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 Code Status & VTE Plan Code Status Full VTE Prophylaxis Plan VTE Prophylaxis will be ordered: Yes Supervising Physician Co-Signing Physician Notes Attending addendum: I have physically seen this patient, have supervised the medical residents activities, and agree with the H&P unless as otherwise noted. Assessment and Plan: Hyponatremia- Sodium level 128 Serum osmolality 277 Urine osmolality 177. Secondary to increased free water replacement without adequate lites with attempt to rehydrate from dehydration caused by diarrhea. Placed on NSS 80 mils per hour. Serial laboratories. Diarrhea/nausea- History of C. difficile, stool studies pending. May add cholestyramine as bulk forming agent as needed. Symptomatically improved with IV fluids given in ED. ELLY/CKD- Creatinine 2.01 today, with baseline 1.7. Should improve with fluid rehydration. Follow labs serially. Remaining orders and notations as noted. PG Care Time/CCT Total # of Minutes Spent Total Time Spent with Patient: Total time spent is greater than 50% in coordination of care (as documented) at patient's floor/unit and/or counseling patient: Resident Activity Tracking Resident Involvement: Resident Care Provided Care Provided: Adult Hospital Medicine (1) Headache Headache chronicity pattern: unspecified pattern Headache type: unspecified Intractability: not intractable Qualified Code(s): R51 - Headache (2) Stroke CVA mechanism: unspecified Qualified Code(s): I63.9 - Cerebral infarction, unspecified
[2018-11-23] MEDS ORDERED: ACETAMINOPHEN 325 MG TAB ONE (03:55)
[2018-11-23] MEDS ORDERED: ALBUTEROL HFA 8 GM INHALER INH PRN (04:37)
[2018-11-23] MEDS ORDERED: ONDANSETRON INJ 2 MG/ML 2 ML VIAL IV PRN (04:37)
[2018-11-23] MEDS: SODIUM CHLORIDE 0.9% 1000ML 1,000 ML IV SCH ×2 (05:03→19:26)
[2018-11-23] MEDS ORDERED: Nursing to Pharmacy Communication STA (05:39)
[2018-11-23] MEDS: ALPRAZolam 0.5 MG TABLET PO SCH ×3 (06:00→20:17)
[2018-11-23 07:58] LABS: BUN Creatinine Ratio 16.6 (10-20); Calcium 8.4 mg/dl (8.5-10.1); Creatinine Clr Calc Pharmacy 29.9 ml/min; Est GFR (African American) 30.2; Est GFR (Non-African American) 26.1; Potassium 4.2 mmol/L (3.5-5.1)
[2018-11-23] MEDS ORDERED: ALPRAZolam 0.5 MG TABLET PO SCH (09:00)
[2018-11-23] MEDS: PANTOprazole 40 MG TAB PO SCH ×2 (09:03→20:18)
[2018-11-23] MEDS: ACETAMINOPHEN 325 MG TAB PO PRN ×3 (09:03→20:23)
[2018-11-23] MEDS: FLUOXETINE HCL 20 MG CAP PO SCH (09:04)
[2018-11-23] MEDS: CALCITRIOL 0.25 MCG CAPSULE PO SCH (09:04)
[2018-11-23] MEDS: ASPIRIN 81 MG ECTAB PO SCH (09:04)
[2018-11-23] MEDS: HEPARIN SOD 5,000 UNIT/0.5 ML VIAL SQ SCH ×2 (09:05→20:19)
[2018-11-23] MEDS: FLUTICASONE PROPIONATE NA SPR 16 GM BTL NAE SCH (09:05)
[2018-11-23] MEDS: BECLOMETHASONE DIP HFA 40 MCG 8.7G INH INH SCH ×2 (11:09→20:18)
[2018-11-23] MEDS ORDERED: KETOROLAC TROMETHAMINE 15 MG/ML VIAL IV ONE (14:16)
--- NOTE | 2018-11-23 14:20 | History & Physical Bridge Note ---
Date of Service November 23, 2018 History & Physical Bridge Note Patient seen and examined today. Reports continued frontal tension type headache with occasional radiation around to the back of the neck. No significant photophobia. No nausea or vomiting. Patient reports occasional high blood pressures at home up to 175/70. This is why she presented to the emergency department, as she was told by the tele-nurse to come to the ED. She also reports approximately 3 weeks of continued diarrhea. She has had stomach problems for "years" but has not seen a GI doctor in approximately 4 years. We will get stool testing for subacute diarrhea, give medication to improve blood pressure and headache.
[2018-11-23] MEDS: AMLODIPINE BESYLATE 5 MG TAB PO SCH (17:20)
[2018-11-23] MEDS: MONTELUKAST SODIUM 10 MG TABLET PO SCH (20:18)
[2018-11-24 07:37] LABS: Hematocrit (blood only) 35.1 % (37-47); Hemoglobin 11.8 g/dL (12.0-16.0); Mean Corpuscular Hgb Conc 33.6 g/dL (32-36); Mean Corpuscular Volume 94.6 fL (80-100); Mean Platelet Volume 9.3 fL (7.4-10.4); Platelet Count 228 K/uL (130-400); RDW Coefficient of Variation 13.6 % (11.5-14.5); Red Blood Count 3.71 M/uL (4.2-5.4); White Blood Count 5.62 K/uL (4.8-10.8)
[2018-11-24] MEDS: HEPARIN SOD 5,000 UNIT/0.5 ML VIAL SQ SCH (07:51)
[2018-11-24] MEDS: FLUTICASONE PROPIONATE NA SPR 16 GM BTL NAE SCH (07:51)
[2018-11-24] MEDS: FLUOXETINE HCL 20 MG CAP PO SCH (07:52)
[2018-11-24] MEDS: BECLOMETHASONE DIP HFA 40 MCG 8.7G INH INH SCH ×2 (07:52→20:08)
[2018-11-24] MEDS: ALPRAZolam 0.5 MG TABLET PO SCH ×3 (07:53→20:15)
[2018-11-24] MEDS: ASPIRIN 81 MG ECTAB PO SCH (07:53)
[2018-11-24] MEDS: PANTOprazole 40 MG TAB PO SCH ×2 (07:53→20:07)
[2018-11-24] MEDS: CALCITRIOL 0.25 MCG CAPSULE PO SCH (07:53)
[2018-11-24 08:05] LABS: BUN Creatinine Ratio 15.9 (10-20); Calcium 8.3 mg/dl (8.5-10.1); Creatinine Clr Calc Pharmacy 27.3 ml/min; Est GFR (African American) 26.5; Est GFR (Non-African American) 22.8; Magnesium 2.1 mg/dl (1.8-2.4); Potassium 4.7 mmol/L (3.5-5.1)
[2018-11-24] MEDS: AMLODIPINE BESYLATE 5 MG TAB PO SCH (08:40)
[2018-11-24] MEDS: ACETAMINOPHEN 325 MG TAB PO PRN ×2 (08:56→22:41)
--- NOTE | 2018-11-24 13:14 | Hospitalist Progress Note ---
Date of Service November 24, 2018 Assessment & Plan (1) Nausea: - Presented with nausea and vomiting; recently admitted 11/16-11/17 for similar symptoms. - CT of A/P was negative on 11/16; will obtain Abd XR for evaluation. - Diet as tolerated; IV fluids at 100 cc/hr. - PPI BID for GERD related symptoms. - Zofran prn N/V. - Will consult GI for evaluation, possible scope in setting of ongoing symptoms. (2) Diarrhea: - C. diff negative during this admission and previous admission. - Ongoing symptoms for 3 weeks -- will consult GI as noted above. (3) Hyponatremia: - Na level 128 at admission -- likely hypoosmolar hyponatremia in setting of dehydration. - Na level now improving, was 132. Will monitor q12hr. - NS at 100 cc/hr. (4) ELLY (acute kidney injury): - Baseline Cr 1.7-1.9; currently elevated above baseline, 2.12 on morning labs. - May be prerenal related to dehydration -- continue NS at 100 cc/hr. - Monitor renal function q12hr. - Holding nephrotoxic meds, including Lasix and ACEI. (5) Chronic renal disease, stage IV: - Monitor renal function as noted above. (6) Cerebrovascular disease: - Recently admitted from 11/16-11/17 for stroke like symptoms; MRI was negative for CVA. - Continue low dose ASA 81 mg daily per neuro recs. - Head CT during this admission was negative. (7) HTN (hypertension): - Holding home Lasix and Benazepril due to ELLY. - Started Amlodipine 5 mg daily as inpt; BP has been elevated. (8) Major depressive disorder: - Continue Fluoxetine as prescribed. (9) Anxiety: - Xanax TID scheduled. (10) Asthma: - Qvar BID. (11) DVT prophylaxis: - Heparin q12hr. Dispo: Med/surg with tele for work up of N/V/D; GI consulted. Supervising Physician Co-Signing Physician Notes PA Supervision Note: I did not personally see or examine the patient today, but I verified all sosa points of KAROL Willingham's assessment and plan with the following exceptions/additions: Noted mild hyperkalemia on evening labs of K+ 5.3. Likely secondary to renal failure which is being treated with continued IVFs. No offending medications on MAY. Repeat BMP now and asked overnight resident to f/u on result. Troponin added on as well as pt was having chest pain-discussed with overnight resident Subjective Pt. has a headache this morning, received Tylenol with some improvement. Nausea/vomiting resolved. Had a loose BM this morning -- diarrhea has been an ongoing issue over the last 3 weeks. Most recent colonoscopy was 4-[address] Pérez. Review of Systems Review of Systems: All systems reviewed & are unremarkable except as noted in HPI & below Constitutional: no fever, no chills, no fatigue and no weakness Respiratory: no cough, no dyspnea, no dyspnea on exertion and no wheezing Cardiovascular: no chest pain, no palpitations and no edema Gastrointestinal: + diarrhea/loose stools; no abdominal pain, no nausea and no vomiting Genitourinary: no difficulty urinating Musculoskeletal: no back pain and no joint pain Integumentary: no non-healing lesions Neurologic: + headache(s) Physical Exam Physical Exam: General: Resting comfortably HEENT: NC/AT; PERRLA with EOMI; [place] conjunctiva, MMM. No erythema of posterior pharynx Neck: Supple and nontender Cardiac: RRR Lungs: CTA bilaterally Abdomen: Bowel normoactive X 4; Nontender to palpation Extremities: Warm. No edema present Neuro: No focal weakness Skin: No rash Results & Data Vital Signs (Past 12 Hours) Vital Signs Temp Pulse Resp BP Pulse Ox 11/24/18 11:50 36.6 C 73 18 146/69 H 99 11/24/18 04:00 36.5 C 72 20 121/64 96 Laboratory Results 11/24/18 11/24/18 11/24/18 Range/Units 09:35 09:35 09:35 WBC (4.8-10.8) K/uL RBC (4.2-5.4) M/uL Hgb (12.0-16.0) g/dL Hct (37-47) % MCV (80-100) fL MCH (25-34) pg MCHC (32-36) g/dL RDW Std Deviation (36.4-46.3) fL RDW Coeff of Chauncey (11.5-14.5) % Plt Count (130-400) K/uL MPV (7.4-10.4) fL Sodium (136-145) mmol/L Potassium (3.5-5.1) mmol/L Chloride (98-107) mmol/L Carbon Dioxide (21-32) mmol/L Anion Gap (3-11) BUN (7-18) mg/dl Creatinine (0.6-1.2) mg/dl Est Cr Clr Drug Dosing ml/min Est GFR ( Amer) Est GFR (Non-Af Amer) BUN/Creatinine Ratio (10-20) Glucose (70-99) mg/dl Calcium (8.5-10.1) mg/dl Magnesium (1.8-2.4) mg/dl Stool Fat Screen Pending Stl C. diff Tox B Gene Negative Cdiff Gene (Neg) Stool Ova & Parasites Pending Stool O & P Source Pending Parasite Trichrome Pending Stool Comments Pending 11/24/18 11/24/18 Range/Units 07:19 07:19 WBC 5.62 (4.8-10.8) K/uL RBC 3.71 L (4.2-5.4) M/uL Hgb 11.8 L (12.0-16.0) g/dL Hct 35.1 L (37-47) % MCV 94.6 (80-100) fL MCH 31.8 (25-34) pg MCHC 33.6 (32-36) g/dL RDW Std Deviation 47.0 H (36.4-46.3) fL RDW Coeff of Chauncey 13.6 (11.5-14.5) % Plt Count 228 (130-400) K/uL MPV 9.3 (7.4-10.4) fL Sodium 132 L (136-145) mmol/L Potassium 4.7 (3.5-5.1) mmol/L Chloride 101 (98-107) mmol/L Carbon Dioxide 25 (21-32) mmol/L Anion Gap 6.0 (3-11) BUN 34 H (7-18) mg/dl Creatinine 2.12 H (0.6-1.2) mg/dl Est Cr Clr Drug Dosing 27.3 ml/min Est GFR ( Amer) 26.5 Est GFR (Non-Af Amer) 22.8 BUN/Creatinine Ratio 15.9 (10-20) Glucose 87 (70-99) mg/dl Calcium 8.3 L (8.5-10.1) mg/dl Magnesium 2.1 (1.8-2.4) mg/dl Stool Fat Screen Stl C. diff Tox B Gene (Neg) Stool Ova & Parasites Stool O & P Source Parasite Trichrome Stool Comments PG Care Time/CCT Total # of Minutes Spent Total Time Spent with Patient: Total time spent is greater than 50% in coordination of care (as documented) at patient's floor/unit and/or counseling patient:
[2018-11-24] MEDS: SODIUM CHLORIDE 0.9% 1000ML 1,000 ML IV SCH ×2 (13:35→23:45)
[2018-11-24] MEDS ORDERED: KETOROLAC TROMETHAMINE 15 MG/ML VIAL IV ONE (13:53)
[2018-11-24] MEDS ORDERED: PROMETHAZINE HCL 12.5 MG in SODIUM CHLORIDE 0.9% 50 ML IV ONE (14:05)
--- NOTE | 2018-11-24 15:03 | XRay Report ---
XR abdomen 2V w PA chest CLINICAL HISTORY: 73 years-old Female presenting with N/V/D. TECHNIQUE: PA view of the chest and supine and upright views of the abdomen were obtained. COMPARISON: Chest x-ray from 11/16/2018, CT from 11/16/2018, and plain radiograph of the abdomen from . FINDINGS: Cardiac silhouette mildly enlarged. No focal opacity. No large effusion or pneumothorax. Nonobstructive bowel gas pattern. No gross pneumoperitoneum. Allowing for bowel gas and stool, no calcifications to suggest nephrolithiasis. Right hemipelvic phle boliths Degenerative changes of the spine. IMPRESSION: 1. No acute cardiopulmonary disease. 2. No radiographic evidence of acute intra-abdominal pathology. Electronically signed by: Malik Martinez M.D. 11/24/2018 3:01 PM
--- NOTE | 2018-11-24 16:07 | Progress Note ---
DATE: 11/24/2018 REASON FOR CONSULTATION: Nausea and diarrhea. HISTORY OF PRESENT ILLNESS: The patient is a 73-year-old who presents to the hospital with a 3-4 week history of nausea and diarrhea. She is having no nocturnal bowel movements and no visible blood in her stools. She has had no fevers or night sweats, but does report having some chills. Four months ago, she had similar symptoms and had negative stool cultures and CT scan. She presented back to the hospital with recurrent symptoms over the last 3-4 weeks. This time, she has been a little bit lightheaded and hyponatremic from poor p.o. intake. The patient reports no hematemesis. Since being hospitalized, she has had stool for C. diff and fecal leukocytes, both of which were negative. During her last hospitalization, she had stool for bacterial pathogens which was negative and a CT of the abdomen and pelvis which was negative. During this hospitalization, she had a plain film of the abdomen or abdominal series and chest x-ray, which were negative for any acute findings. PAST MEDICAL HISTORY: Remarkable for cholecystectomy, some history of a CVA, hypertension, asthma, acid reflux, anxiety and depression, chronic kidney injury. MEDICATIONS: QVAR inhaler, alprazolam, benazepril, calcitriol, fluoxetine, fluticasone intranasally, montelukast, pantoprazole, Zofran, albuterol inhaler, Lasix and baby aspirin. ALLERGIES: PENICILLIN AND AMOXICILLIN. FAMILY HISTORY: Positive for heart attack and stroke. SOCIAL HISTORY: The patient is , does not smoke, does not drink any alcohol. Feels safe at home. REVIEW OF SYSTEMS: Negative except for what I mentioned. She does have some knee pain from a previous knee replacement on the right. PHYSICAL EXAMINATION: GENERAL: The patient has normal vital signs. She is afebrile. VITAL SIGNS: Blood pressure is a little bit high at 160/70. The patient is obese, breathing normally. HEART: Regular rate and rhythm. ABDOMEN: Obese, I was unable to palpate any internal organs. IMPRESSION: The patient has diarrhea with negative C. diff and fecal leukocytes. The absence of fecal leukocytes probably eliminates any bacterial infection or inflammatory bowel disease most likely a viral syndrome causing the diarrhea, nausea is possibly part of the same process, but given the fact that she is taking a baby aspirin, I plan on scheduling her for an EGD tomorrow to evaluate for gastritis or an ulcer.
[2018-11-24 17:35] LABS: BUN Creatinine Ratio 14.2 (10-20); Calcium 8.2 mg/dl (8.5-10.1); Creatinine Clr Calc Pharmacy 26.1 ml/min; Est GFR (Non-African American) 21.6; Potassium 5.3 mmol/L (3.5-5.1)
[2018-11-24] MEDS: MONTELUKAST SODIUM 10 MG TABLET PO SCH (20:08)
[2018-11-24] MEDS ORDERED: SODIUM CHLORIDE 0.9% 1000ML 1,000 ML IV ONE (20:23)
[2018-11-24 23:40] LABS: BUN Creatinine Ratio 15.8 (10-20); Blood Urea Nitrogen 31 mg/dl (7-18); Calcium 7.9 mg/dl (8.5-10.1); Carbon Dioxide 26 mmol/L (21-32); Chloride 106 mmol/L (98-107); Creatinine Clr Calc Pharmacy 29.2 ml/min; Est GFR (African American) 28.7; Est GFR (Non-African American) 24.8; Glucose 101 mg/dl (70-99); Potassium 4.9 mmol/L (3.5-5.1); Sodium 136 mmol/L (136-145)
[2018-11-24 23:44] LABS: Troponin I < 0.015 ng/ml (0-0.045)
[2018-11-25] MEDS: ALPRAZolam 0.5 MG TABLET PO SCH ×2 (05:32→13:15)
[2018-11-25 06:30] LABS: Hemoglobin 10.8 g/dL (12.0-16.0); Mean Corpuscular Hgb Conc 33.8 g/dL (32-36); Mean Corpuscular Volume 94.4 fL (80-100); Mean Platelet Volume 8.8 fL (7.4-10.4); Platelet Count 222 K/uL (130-400); RDW Coefficient of Variation 13.8 % (11.5-14.5); RDW Standard Deviation 47.8 fL (36.4-46.3); Red Blood Count 3.39 M/uL (4.2-5.4); White Blood Count 6.34 K/uL (4.8-10.8)
[2018-11-25 07:09] LABS: BUN Creatinine Ratio 16.1 (10-20); Calcium 7.9 mg/dl (8.5-10.1); Creatinine Clr Calc Pharmacy 33.6 ml/min; Est GFR (African American) 33.1; Est GFR (Non-African American) 28.6; Potassium 4.6 mmol/L (3.5-5.1)
[2018-11-25] MEDS: BECLOMETHASONE DIP HFA 40 MCG 8.7G INH INH SCH (07:42)
[2018-11-25] MEDS: FLUTICASONE PROPIONATE NA SPR 16 GM BTL NAE SCH (07:42)
[2018-11-25] MEDS: FLUOXETINE HCL 20 MG CAP PO SCH (07:43)
[2018-11-25] MEDS: PANTOprazole 40 MG TAB PO SCH (07:43)
[2018-11-25] MEDS: AMLODIPINE BESYLATE 5 MG TAB PO SCH (07:43)
[2018-11-25] MEDS: CALCITRIOL 0.25 MCG CAPSULE PO SCH (07:43)
--- NOTE | 2018-11-25 08:43 | Anesthesiology Consultation ---
Date of Service November 25, 2018 Assessment & Plan (1) Encounter for pre-operative examination: Chart Review Chart Review: Acceptable Risk for Surgery and Patient NOT seen in Pre Admission Testing Consults Requested none History Surgery Operation Date: 11/25/18 08:30 Proposed Procedures p Esophagogastroduodenoscopy Dr Beto Pérez Height/Weight Height: 5 ft Weight: 113.3 kg Allergies Allergy/AdvReac Type Severity Reaction Status Date / Time Penicillins Allergy Unknown RASH TO Verified 11/16/18 16:40 AMOXIL, NO RESP PROBLEMS amoxicillin Allergy Hives Verified 11/16/18 20:15 Medications Home Medications Medication Instructions Recorded Confirmed Last Taken Qvar RediHaler 1 puff INHALATION BID 07/19/18 11/23/18 11/09/18 alprazolam 1 mg PO TID 07/19/18 11/23/18 11/16/18 benazepril 20 mg PO QAM 07/19/18 11/23/18 11/16/18 calcitriol 0.25 mcg PO QAM 07/19/18 11/23/18 11/16/18 fluoxetine 60 mg PO QAM 07/19/18 11/23/18 11/16/18 fluticasone propionate 1 spray INTRANASAL QAM 07/19/18 11/23/18 07/19/18 montelukast 10 mg PO HS 07/19/18 11/23/18 11/09/18 pantoprazole 40 mg PO BID 07/19/18 11/23/18 11/15/18 ondansetron HCl 4 mg tablet 4 mg PO Q8H PRN #7 tab 11/12/18 11/23/18 11/16/18 albuterol sulfate HFA 90 2 puffs INHALATION Q4H PRN #1 gm 11/19/18 11/23/18 Unknown mcg/actuation aerosol inhaler furosemide 20 mg tablet 20 mg PO Q OTHER DAY #30 tab 11/19/18 11/23/18 11/22/18 09:00 aspirin [Aspirin Low Dose] 81 mg PO DAILY 11/23/18 11/23/18 Unknown Active Medications Generic Name Dose Route Start Last Admin Trade Name Freq PRN Reason Stop Dose Admin Acetaminophen 650 mg 11/23/18 04:37 11/24/18 22:41 Tylenol PO 12/23/18 04:36 650 mg Q4H PRN Administration Pain or Fever Alprazolam 1 mg 11/23/18 06:00 11/25/18 05:32 Xanax PO 12/23/18 05:59 1 mg TID MONSE Administration Amlodipine Besylate 5 mg 11/25/18 09:00 11/25/18 08:16 Norvasc PO 11/25/18 09:01 5 mg TODAY@0900 ONE Administration Beclomethasone Dipropionate 1 puffs 11/23/18 09:00 11/25/18 07:42 Qvar 40 Mcg INH 12/23/18 08:59 1 puffs BID MONSE Administration Calcitriol 0.25 mcg 11/23/18 09:00 11/25/18 07:43 Rocaltrol PO 12/23/18 08:59 0.25 mcg QAM MONSE Administration Fluoxetine HCl 60 mg 11/23/18 09:00 11/25/18 07:43 Prozac PO 12/23/18 08:59 60 mg QAM MONSE Administration Fluticasone Propionate 1 sprays 11/23/18 09:00 11/25/18 07:42 Flonase BOB 12/23/18 08:59 1 sprays QAM MONSE Administration Hydralazine HCl 25 mg 11/23/18 04:37 11/23/18 15:53 Apresoline PO 12/23/18 04:36 25 mg Q6H PRN Administration sbp > 180 or DBP > 100 Sodium Chloride 1,000 mls @ 70 mls/hr 11/23/18 04:37 11/24/18 23:45 Nss 1000ml IV 12/23/18 04:36 100 mls/hr .[id number] MONSE Administration Montelukast Sodium 10 mg 11/23/18 21:00 11/24/18 20:08 Singulair PO 12/23/18 20:59 10 mg HS MONSE Administration Ondansetron HCl 4 mg 11/23/18 04:37 11/24/18 12:47 Zofran IV 12/23/18 04:36 4 mg Q6H PRN Administration Nausea Pantoprazole Sodium 40 mg 11/23/18 09:00 11/25/18 07:43 Protonix PO 12/23/18 08:59 40 mg BID MONSE Administration Past Medical History Medical History Major depressive disorder (Chronic) GERD (gastroesophageal reflux disease) (Chronic) HTN (hypertension) (Chronic) Anxiety (Chronic) Chronic kidney disease (Chronic) CVA (cerebral vascular accident) Morbid obesity Past Family History Family History Mother Heart disease Stroke Past Surgical History Surgical History History of right knee joint replacement (Chronic) Social History Smoking Status: Never smoker Hx Alcohol Use: No Hx Substance Use: No Physical Exam Vital Signs Last Vital Signs Temp 36.5 C 11/25/18 07:02 Pulse 76 11/25/18 07:02 Resp 18 11/25/18 07:02 BP 184/86 H 11/25/18 07:02 Pulse Ox 97 11/25/18 07:02 Testing Laboratory Results 11/25/18 06:06 11/25/18 06:06 Urine Color Yellow 11/22/18 22:25 Urine Appearance Clear (Clear) 11/22/18 22:25 Urine pH 6.5 (4.5-7.5) 11/22/18 22:25 Ur Specific Reserve 1.007 (1.000-1.030) 11/22/18 22:25 Urine Protein Negative (Negative) 11/22/18 22:25 Urine Glucose (UA) Negative (Negative) 11/22/18 22:25 Urine Ketones Negative (Negative) 11/22/18 22:25 Urine Nitrite Negative (Negative) 11/22/18 22:25 Ur Leukocyte Esterase Negative (Negative) 11/22/18 22:25 11/24/18 09:35 WBC Smear - Final Stool Electrocardiogram Date: 11/24/18 Findings: + ST @ (108) and + no change from (11/16/18)
[2018-11-25] MEDS ORDERED: AMLODIPINE BESYLATE 5 MG TAB PO ONE ×3 (09:00→11:56)
[2018-11-25] MEDS: SODIUM CHLORIDE 0.9% 1000ML 1,000 ML IV SCH (09:56)
--- NOTE | 2018-11-25 14:42 | History & Physical Report ---
Date of Service November 25, 2018 History of Present Illness Chief Complaint: Nausea Primary Care Provider: Neri Denson MD For EGD Allergies Allergy/AdvReac Type Severity Reaction Status Date / Time Penicillins Allergy Unknown RASH TO Verified 11/16/18 16:40 AMOXIL, NO RESP PROBLEMS amoxicillin Allergy Hives Verified 11/16/18 20:15 Home Medications Home Medications Medication Instructions Recorded Confirmed Type Qvar RediHaler 1 puff INHALATION BID 07/19/18 11/23/18 History alprazolam 1 mg PO TID 07/19/18 11/23/18 History benazepril 20 mg PO QAM 07/19/18 11/23/18 History calcitriol 0.25 mcg PO QAM 07/19/18 11/23/18 History fluoxetine 60 mg PO QAM 07/19/18 11/23/18 History fluticasone propionate 1 spray INTRANASAL QAM 07/19/18 11/23/18 History montelukast 10 mg PO HS 07/19/18 11/23/18 History pantoprazole 40 mg PO BID 07/19/18 11/23/18 History ondansetron HCl 4 mg tablet 4 mg PO Q8H PRN #7 tab 11/12/18 11/23/18 Rx albuterol sulfate HFA 90 2 puffs INHALATION Q4H PRN #1 gm 11/19/18 11/23/18 History mcg/actuation aerosol inhaler furosemide 20 mg tablet 20 mg PO Q OTHER DAY #30 tab 11/19/18 11/23/18 History aspirin [Aspirin Low Dose] 81 mg PO DAILY 11/23/18 11/23/18 History Past Med/Surg History Medical History Major depressive disorder (Chronic) GERD (gastroesophageal reflux disease) (Chronic) HTN (hypertension) (Chronic) Anxiety (Chronic) Chronic kidney disease (Chronic) CVA (cerebral vascular accident) Morbid obesity Surgical History History of right knee joint replacement (Chronic) Family History Mother Heart disease Stroke Social History Preferred Language: Kiswahili Communication Ability: Effective Hyperion Administrator Required: Yes and No Beliefs That Will Affect Care: None Current Living Situation: Spouse Other Information That Helps Us Care for You: No Feels Safe at Home: Yes Safety Concerns: Feels Safe At This Time Smoking Status: Never smoker Hx Alcohol Use: No Hx Substance Use: No Physical Exam Constitutional: + morbidly obese Respiratory: normal respiratory effort Cardiovascular: Rate/Rhythm: regular rate and regular rhythm Gastrointestinal (Abdomen): Percussion/Palpation: abdomen soft Results & Data Vital Signs (Past 12 Hours) Vital Signs Temp Pulse Pulse Resp BP BP Pulse Ox 11/25/18 14:35 36.6 C 86 20 201/58 H 100 11/25/18 11:23 36.6 C 79 20 184/71 H 90 11/25/18 07:02 36.5 C 76 18 184/86 H 97 11/25/18 04:00 36.7 C 78 20 168/75 H 97 Code Status & VTE Plan VTE Prophylaxis Plan VTE Prophylaxis will be ordered: Yes
[2018-11-25] MEDS ORDERED: SODIUM CHLORIDE 0.9% 1000ML 1,000 ML IV SCH (14:45)
[2018-11-25] MEDS ORDERED: LIDOCAINE HCL 2% 2 ML VIAL/AMP(20MG/ML) INFIL ONE (15:01)
[2018-11-25] MEDS ORDERED: ONDANSETRON INJ 2 MG/ML 2 ML VIAL ONE (15:01)
[2018-11-25] MEDS ORDERED: PROPOFOL IV EMULSION 10 MG/ML 20 ML VIAL IV ONE (15:01)
--- NOTE | 2018-11-25 15:04 | GI REPORT ---
Patient Name: Kim Aldana Procedure Date: 11/25/2018 2:29 PM Date of : 1945 Admit Type: Inpatient Age: 73 Gender: Female Attending MD: Maksim Pérez MD Procedure: Upper GI endoscopy Providers: Maksim Pérez MD Referring MD: Angi Olivares Md Indications: Nausea Medicines: Propofol total dose 100 mg IV, Ondansetron 4 mg IV, Lidocaine 80 mg IV Complications: No immediate complications. Estimated Blood Loss: Estimated blood loss: none. Procedure: Pre-Anesthesia Assessment: - Prior to the procedure, a History and Physical was performed, and patient medications, allergies and sensitivities were reviewed. The patient's tolerance of previous anesthesia was reviewed. - The risks and benefits of the procedure and the sedation options and risks were discussed with the patient. All questions were answered and informed consent was obtained. After obtaining informed consent, the endoscope was passed under direct vision. Throughout the procedure, the patient's blood pressure, pulse, and oxygen saturations were monitored continuously. The Endoscope was introduced through the mouth, and advanced to the second part of duodenum. The upper GI endoscopy was accomplished without difficulty. The patient tolerated the procedure well. Findings: The examined esophagus was normal. The Z-line was regular and was found 34 cm from the incisors. The entire examined stomach was normal. The examined duodenum was normal. Impression: - Normal esophagus. - Z-line regular, 34 cm from the incisors. - Normal stomach. - Normal examined duodenum. - No specimens collected. Recommendation: - Return patient to hospital [facility] for ongoing care. - Advance diet as tolerated. Maksim Pérez M.D. Maksim Pérez MD 11/25/2018 3:03:51 PM This report has been signed electronically. Note Initiated On: 11/25/2018 2:29 PM Number of Addenda: 0 I attest to the content of the Intraoperative Record and orders documented therein, exceptions below {[id number]}
--- NOTE | 2018-11-25 15:17 | Progress Note ---
DATE: 11/25/2018 REASON FOR EVALUATION: Nausea. The patient underwent an EGD today. EGD included the esophagus, stomach and the duodenum into the second portion. The mucosa was normal throughout with no lesions seen. IMPRESSION: The patient's EGD was normal. I believe her symptoms precipitating her hospitalization most likely related to a viral gastroenteritis. I think at this point we can advance her diet and hopefully discharge her home in the near future. I have no further GI suggestions at this time.
--- NOTE | 2018-11-25 15:23 | Anesthesiology Progress Note ---
Date of Service November 25, 2018 Anesthesia Post Procedure Vital Signs Vital Signs: Temp Pulse Pulse Pulse Resp BP BP 11/25/18 15:22 70 20 151/53 H 11/25/18 15:14 36.6 C 73 16 145/52 H 11/25/18 14:35 36.6 C 86 20 201/58 H 11/25/18 11:23 36.6 C 79 20 184/71 H 11/25/18 07:02 36.5 C 76 18 184/86 H 11/25/18 04:00 36.7 C 78 20 168/75 H 11/25/18 01:24 84 11/24/18 23:01 36.3 C L 87 20 177/72 H 11/24/18 19:46 36.6 C 86 20 185/68 H 11/24/18 17:01 72 11/24/18 16:03 36.6 C 84 20 139/72 Pulse Ox 11/25/18 15:22 97 11/25/18 15:14 96 11/25/18 14:35 100 11/25/18 11:23 90 11/25/18 07:02 97 11/25/18 04:00 97 11/25/18 01:24 11/24/18 23:01 95 11/24/18 19:46 99 11/24/18 17:01 11/24/18 16:03 96 Pain Intensity Head: Pain Intensity: 2 Transfer of Care Handoff Completed per policy Notes Mental Status: alert / awake / arousable and participated in evaluation Nausea / Vomiting: adequately controlled Pain: adequately controlled Airway Patency, RR, SpO2: stable & adequate BP & HR: stable & adequate Hydration State: stable & adequate Anesthetic Complications: no major complications apparent and Pt Satisfied with anesthetic care
[2018-11-25] MEDS ORDERED: HydrALAZINE HCL 20 MG/ML VIAL IV PRN (15:30)
--- NOTE | 2018-11-25 15:53 | Hospitalist Progress Note ---
Date of Service November 25, 2018 Assessment & Plan (1) Nausea: - Presented with nausea and vomiting; recently admitted 11/16-11/17 for similar symptoms. - CT of A/P was negative on 11/16; Abd XR was negative. - NPO for procedure; advance diet following EGD. - GI consulted, plan for EGD this afternoon. - PPI BID for GERD related symptoms. - Zofran prn N/V. (2) Diarrhea: - C. diff negative during this admission and previous admission. - Stool cultures negative (prelim) (3) Hyponatremia: - Na level 128 at admission -- likely hypoosmolar hyponatremia in setting of dehydration. - Na level now improving, increased to 139. - D/c'ed IV fluids. (4) ELLY (acute kidney injury): - Baseline Cr 1.7-1.9; Cr now improved to baseline, was 1.76 this morning. - May be prerenal related to dehydration; improved with IV Fluid hydration, now d/c'ed. - Monitor renal function twice daily. - Holding nephrotoxic meds; plan to resume ACEI on 11/26, continue to hold Lasix PO. (5) Chronic renal disease, stage IV: - Monitor renal function as noted above. (6) Cerebrovascular disease: - Recently admitted from 11/16-11/17 for stroke like symptoms; MRI was negative for CVA. - Continue low dose ASA 81 mg daily per neuro recs. - Head CT during this admission was negative. (7) HTN (hypertension): - Held home Lasix and Benazepril due to ELLY. - BP has been very uncontrolled, 170-190's over last 24 hours. Is likely partially related to anxiety. - Received Amlodipine 5-10 mg during this admission; plan to resume ACEI in the morning, hold Lasix. - Hydralazine 10 mg IV q6hr prn. (8) Major depressive disorder: - Continue Fluoxetine as prescribed. (9) Anxiety: - Xanax TID scheduled. - Pt. is very anxious on exam, likely contributing to HTN. (10) Asthma: - Qvar BID. (11) DVT prophylaxis: - Hold Heparin for procedure. Dispo: Med/surg; discharge likely on 11/26 pending improvement in HTN and advancement of diet after EGD. Subjective Pt. states nausea is improved, last episode of diarrhea was last evening. She has a headache with neck/muscle tenderness -- likely related to tension headache. BP has been elevated, likely related to underlying anxiety. Plan for EGD this afternoon. Review of Systems Review of Systems: All systems reviewed & are unremarkable except as noted in HPI & below Constitutional: no fever, no chills, no fatigue, no weakness and no anorexia Respiratory: no cough, no dyspnea and no dyspnea on exertion Cardiovascular: no chest pain, no palpitations and no edema Gastrointestinal: + nausea and + diarrhea/loose stools; no abdominal pain, no vomiting and no constipation Genitourinary: no difficulty urinating Musculoskeletal: no back pain and no joint pain Integumentary: no non-healing lesions Neurologic: + headache(s) Physical Exam Physical Exam: General: Anxious appearing female. HEENT: NC/AT; PERRLA with EOMI; [place] conjunctiva, MMM. No erythema of posterior pharynx Neck: Supple and nontender Cardiac: RRR Lungs: CTA bilaterally Abdomen: Bowel normoactive X 4; Nontender to palpation Extremities: Warm. No edema present Neuro: No focal weakness Skin: No rash Results & Data Vital Signs (Past 12 Hours) Vital Signs Temp Pulse Pulse Resp BP BP Pulse Ox 11/25/18 15:34 68 20 146/53 H 97 11/25/18 15:22 70 20 151/53 H 97 11/25/18 15:14 36.6 C 73 16 145/52 H 96 11/25/18 14:35 36.6 C 86 20 201/58 H 100 11/25/18 11:23 36.6 C 79 20 184/71 H 90 11/25/18 07:02 36.5 C 76 18 184/86 H 97 11/25/18 04:00 36.7 C 78 20 168/75 H 97 Laboratory Results 11/25/18 11/25/18 11/24/18 Range/Units 06:06 06:06 23:08 WBC 6.34 (4.8-10.8) K/uL RBC 3.39 L (4.2-5.4) M/uL Hgb 10.8 L (12.0-16.0) g/dL Hct 32.0 L (37-47) % MCV 94.4 (80-100) fL MCH 31.9 (25-34) pg MCHC 33.8 (32-36) g/dL RDW Std Deviation 47.8 H (36.4-46.3) fL RDW Coeff of Chauncey 13.8 (11.5-14.5) % Plt Count 222 (130-400) K/uL MPV 8.8 (7.4-10.4) fL Sodium 139 136 (136-145) mmol/L Potassium 4.6 4.9 (3.5-5.1) mmol/L Chloride 109 H 106 (98-107) mmol/L Carbon Dioxide 23 26 (21-32) mmol/L Anion Gap 7.0 4.0 (3-11) BUN 28 H 31 H (7-18) mg/dl Creatinine 1.76 H 1.98 H (0.6-1.2) mg/dl Est Cr Clr Drug Dosing 33.6 29.2 ml/min Est GFR ( Amer) 33.1 28.7 Est GFR (Non-Af Amer) 28.6 24.8 BUN/Creatinine Ratio 16.1 15.8 (10-20) Glucose 86 101 H (70-99) mg/dl Calcium 7.9 L 7.9 L (8.5-10.1) mg/dl Troponin I < 0.015 (0-0.045) ng/ml Stool Fat Screen (NORMAL) 11/24/18 11/24/18 Range/Units 16:45 09:35 WBC (4.8-10.8) K/uL RBC (4.2-5.4) M/uL Hgb (12.0-16.0) g/dL Hct (37-47) % MCV (80-100) fL MCH (25-34) pg MCHC (32-36) g/dL RDW Std Deviation (36.4-46.3) fL RDW Coeff of Chauncey (11.5-14.5) % Plt Count (130-400) K/uL MPV (7.4-10.4) fL Sodium 135 L (136-145) mmol/L Potassium 5.3 H (3.5-5.1) mmol/L Chloride 106 (98-107) mmol/L Carbon Dioxide 25 (21-32) mmol/L Anion Gap 5.0 (3-11) BUN 32 H (7-18) mg/dl Creatinine 2.22 H (0.6-1.2) mg/dl Est Cr Clr Drug Dosing 26.1 ml/min Est GFR ( Amer) 25.0 Est GFR (Non-Af Amer) 21.6 BUN/Creatinine Ratio 14.2 (10-20) Glucose 112 H (70-99) mg/dl Calcium 8.2 L (8.5-10.1) mg/dl Troponin I (0-0.045) ng/ml Stool Fat Screen NORMAL (NORMAL) PG Care Time/CCT Total # of Minutes Spent Total Time Spent with Patient: Total time spent is greater than 50% in coordination of care (as documented) at patient's floor/unit and/or counseling p atient:
--- NOTE | 2018-11-25 16:55 | Discharge Summary ---
Date of Service November 25, 2018 Admission HPI Per Admitting Provider 73-year-old female with recent admission for nausea and diarrhea presents with recurrent nausea and diarrhea which started yesterday. Reports has been on and off for the past 3 to 4 weeks. This episode associated with significant gas with a very bad odor, abdominal pain with diarrhea, headache today shooting in nature and associated with back and neck soreness, lightheadedness. Dysuria from previous admission has improved. Denies any vomiting, fever, chills, chest pain, shortness of breath, hematochezia, melena, hematuria. Reports drinking about 3 pints of water today. Has been eating well since discharge on 11/18/18 and reports symptoms had improved until yesterday. Admission Exam Per Admitting Provider General: In NAD Neuro: A&O x 4 Pulm: CTAB equal breath sounds bilaterally CV: RRR, no m/r/g Abdomen:+BS, mildly TTP in all quadrants, tympanic, obese abdomen LE: no LE edema, no calf TTP Principal Diagnosis Nausea/Vomiting/Diarrhea/Hyponatremia Discharge Exam General: Anxious appearing female. HEENT: NC/AT; PERRLA with EOMI; [place] conjunctiva, MMM. No erythema of posterior pharynx Neck: Supple and nontender Cardiac: RRR Lungs: CTA bilaterally Abdomen: Bowel normoactive X 4; Nontender to palpation Extremities: Warm. No edema present Neuro: No focal weakness Skin: No rash Discharge Data Allergies Allergy/AdvReac Type Severity Reaction Status Date / Time Penicillins Allergy Unknown RASH TO Verified 11/16/18 16:40 AMOXIL, NO RESP PROBLEMS amoxicillin Allergy Hives Verified 11/16/18 20:15 Consultations 11/22/18 23:00 ED Decision to Admit Stat 11/24/18 13:53 Consult Gastroenterology Routine Procedures Performed Operation Date: 11/25/18 08:30 Actual Procedures p Esophagogastroduodenoscopy - Maksim Pérez Ordered Studies 11/22/18 21:28 CT head/brain wo con Stat 11/24: Chest/Abd XR Hospital Course (1) Nausea: Presented with nausea and vomiting; recently admitted 11/16-11/[address] of A/P was negative on 11/16; Abd XR was negative. EGD completed on 11/25, was negative. GI consulted, appreciate input. Advanced to heart healthy diet for dinner. N/V improved prior to discharge. (2) Diarrhea: C. diff negative during this admission and previous admission. Stool cultures negative (prelim) (3) Hyponatremia: Na level 128 at admission -- likely hypoosmolar hyponatremia in setting of dehydration. Na level now improved, increased to 139. D/c'ed IV fluids. (4) ELLY (acute kidney injury): Baseline Cr 1.7-1.9; Cr now improved to baseline, was 1.76 this morning. May be prerenal related to dehydration; improved with IV Fluid hydration, now d/c'ed. Monitored renal function daily. Held nephrotoxic meds; plan to resume ACEI on 11/26, hold Lasix QOD. (5) Chronic renal disease, stage IV: Monitored renal function as noted above. (6) Cerebrovascular disease: Recently admitted from 11/16-11/17 for stroke like symptoms; MRI was negative for CVA. Continued low dose ASA 81 mg daily per neuro recs. Head CT during this admission was negative. (7) HTN (hypertension): Held home Lasix and Benazepril due to ELLY. BP has been very uncontrolled, 170-190's over last 24 hours. Is likely partially related to anxiety. Received Amlodipine 5-10 mg during this admission; plan to resume ACEI in the morning, hold Lasix. (8) Major depressive disorder: Continued Fluoxetine as prescribed. (9) Anxiety: Xanax TID scheduled. Pt. is very anxious on exam, likely contributing to HTN. (10) Asthma: Qvar BID. (11) DVT prophylaxis: Held Heparin for procedure. Discharged to home on 11/25/18. Total Time Total Time Spent Total Time Spent (In Minutes): >30 minutes Total Time Includes: Examination of the Patient, Discharge Planning, Medication Reconciliation, Communication With Other Providers and Other Discharge Plan Discharge Items Patient Disposition: Home - Self-Care Reason For Visit: DIARRHEA, NAUSEA Discharge Diagnosis: Diarrhea, Nausea and Hyponatremia Condition: Good Discharge Goals: Decrease discomfort, Improve disease control, Improve function, Increase independence, Improve nutritional status and Prevent disease Activity: As commented below Exercise/Sports: Gradually increase as tolerated Non-emergency contact: Primary Care Provider Call non-emergency contact if: you have any medication questions, your symptoms worsen, your pain is not controlled, your pain is worsening, your pain is unusual for you, your pain is concerning for you and you have a fever Follow-up/Referrals: Neri Denson MD [Primary Care Provider] - 12/02/18 10:10 am (Please, follow up with Dr. Denson on SaturdayDecember 02 at 10:10 am. *If you need to change this appointment, call the office at [phone].) Diet: Regular Addtl Provider Instructions: 1. Nausea/Vomiting/Diarrhea * Please continue regular diet as tolerated; drink 8-10 glasses of water per day. * Please schedule an appointment with PCP in 1-2 weeks to discuss this hospitalization. * Please take a fiber supplement daily for IBS. 2. Acute Kidney Injury/Low Sodium Levels * Please continue Benazepril as prescribed. Hold Lasix unless instructed by your PCP to resume this medication. 3. Hypertension * Please resume home Benazepril as prescribed. * You will need to discuss blood pressure management with your PCP. * Please monitor BP at home if you develop headache, etc. Prescriptions: New calcium polycarbophil [FiberCon] 625 mg tablet 1,250 mg PO DAILY Qty: 1 RF: 0 Continued ondansetron HCl [Zofran] 4 mg tablet 4 mg PO Q8H PRN (Reason: nausea and vomiting) Qty: 7 RF: 0 albuterol sulfate 90 mcg/actuation HFA aerosol inhaler 2 puffs inhalation Q4H PRN (Reason: shortness of breath or wheezing) Qty: 1 RF: 0 alprazolam 1 mg tablet 1 mg PO TID RF: 0 pantoprazole 40 mg tablet,delayed release (DR/EC) 40 mg PO BID RF: 0 benazepril 20 mg tablet 20 mg PO QAM RF: 0 montelukast 10 mg tablet 10 mg PO HS RF: 0 fluoxetine 20 mg capsule 60 mg PO QAM RF: 0 fluticasone propionate 50 mcg/actuation spray,suspension 1 spray intranasal QAM RF: 0 calcitriol 0.25 mcg capsule 0.25 mcg PO QAM RF: 0 Qvar RediHaler 40 mcg/actuation HFA aerosol breath activated 1 puff inhalation BID RF: 0 aspirin [Aspirin Low Dose] 81 mg tablet,delayed release (DR/EC) 81 mg PO DAILY RF: 0 Discontinued furosemide 20 mg tablet 20 mg PO Q OTHER DAY Qty: 30 RF: 0 Stand-Alone Forms: [facility] Discharge Orders: Discharge Order (Routine); Ordered 11/25/18 Ordered By: Michelle Saucedo Admission Data Admit Date/Time: 11/23/18 02:18 Attending Provider: Angi Olivares Admit Provider: Cheo Bermudez Primary Care Provider: Neri Denson Other Providers: Ean Campbell ; Maksim Pérez Service: Telemetry Medical Other Pending Studies at Discharge: Yes Studies:: Stool culture pending.
[2018-11-26] MEDS ORDERED: AMLODIPINE BESYLATE 5 MG TAB PO SCH (09:00)
[2018-11-26] MEDS ORDERED: LISINOPRIL 10 MG TAB PO SCH (09:00)
== END 2018-11-25 18:32 | disposition home or self-care (01) | DRG 683 ==
LOC: ED 20:54 → SUATTDRO 11-23 02:18 → 2W 11-23 02:18
DX: R07.9 Chest pain, unspecified; I12.9 Hypertensive chronic kidney disease with stage 1 through stage 4 chronic kidney disease, or unspecified chronic kidney disease; Z79.899 Other long term (current) drug therapy; E87.1 Hypo-osmolality and hyponatremia; R53.1 Weakness; E87.5 Hyperkalemia; A08.4 Viral intestinal infection, unspecified; Z79.51 Long term (current) use of inhaled steroids; I67.9 Cerebrovascular disease, unspecified; J45.909 Unspecified asthma, uncomplicated; E66.01 Morbid (severe) obesity due to excess calories; R51 Headache; N17.9 Acute kidney failure, unspecified; Z79.82 Long term (current) use of aspirin; Z51.81 Encounter for therapeutic drug level monitoring; Z68.42 Body mass index [BMI] 45.0-49.9, adult; F41.9 Anxiety disorder, unspecified; K21.9 Gastro-esophageal reflux disease without esophagitis; Z82.49 Family history of ischemic heart disease and other diseases of the circulatory system; F32.9 Major depressive disorder, single episode, unspecified; E86.0 Dehydration; I15.8 Other secondary hypertension; N18.4 Chronic kidney disease, stage 4 (severe); Z82.3 Family history of stroke; Z88.0 Allergy status to penicillin

== ENCOUNTER 2021-02-16 16:14 | Observation (INO) ==
[2021-02-16] MEDS ORDERED: PROMETHAZINE 12.5 MG/50.5 ML BAG IV STA (16:30)
--- NOTE | 2021-02-16 16:34 | Emergency Department Note ---
History of Present Illness General Chief complaint: Weakness Stated complaint: WEAKNESS, DIFFICULTY AMBULATING Time Seen by Provider: 02/16/21 16:19 Source: patient History of Present Illness Provider complaint: Dizziness Onset (ago): day(s) 5 Location: head Pain Consistency: + constant Quality: + other (Lightheaded and feels like the room is spinning) Relieved By: + none Exacerbated By: + movement Associated symptoms: + loss of appetite and + nausea/vomiting (Nausea without vomiting); no chest pain, no cough, no fever/chills, no headaches, no shortness of breath or no syncope This is a 76-year-old female who presents with dizziness for the past 5 days. She states her daughter called her doctor's office today and they advised her to come here. The patient states that she feels very lightheaded all the time and also feels like the room is spinning. It is worse when she tries to move around. She did not pass out. She denies any associated vomiting but states that she is very nauseous. She has not really eaten very much over the past week although states that she has been urinating normally. She denies any headache at this time. She did have a hemorrhagic stroke in November. She walks occasionally but has been having difficulty since the dizziness started. She denies any fever, cough or cold symptoms, chest discomfort or pain, shortness of breath, abdominal pain, diarrhea, black or bloody stools. Home Medications Medication Instructions Recorded Confirmed Type alprazolam 1 mg tablet 1 mg PO BID 07/19/18 02/16/21 History montelukast 10 mg tablet 10 mg PO HS #90 tab 02/17/19 02/16/21 Rx zolpidem 10 mg tablet 10 mg PO HS 07/14/19 02/16/21 History calcitriol 0.25 mcg capsule 0.25 mcg PO QAM #90 cap 08/16/20 02/16/21 Rx cholecalciferol (vitamin D3) 25 50 mcg PO QAM #90 tab 09/02/20 02/16/21 Rx mcg (1,000 unit) tablet (Vitamin D3) amlodipine 10 mg tablet 10 mg PO DAILY 01/05/21 02/16/21 History aripiprazole 10 mg tablet (Abilify) 10 mg PO .QHS tab 01/05/21 02/16/21 History buspirone 5 mg tablet 5 mg PO TID 01/05/21 02/16/21 History carvedilol 12.5 mg tablet (Coreg) 12.5 mg PO BID 01/05/21 02/16/21 History clonidine HCl 0.1 mg tablet 0.1 mg SUBLINGUAL TID tab 01/05/21 02/16/21 History hydralazine 50 mg tablet 50 mg PO TID 01/05/21 02/16/21 History sertraline 100 mg tablet 100 mg PO DAILY 02/16/21 02/16/21 History Allergies Allergy/AdvReac Type Severity Reaction Status Date / Time fentanyl Allergy Intermediate extreme Verified 01/04/21 11:47 confusion/hallucination amoxicillin Allergy Mild Hives Verified 01/04/21 11:47 Penicillins Allergy Mild RASH TO Verified 01/04/21 11:47 AMOXIL, NO RESP PROBLEMS Past Med/Surg History Medical History Anxiety Chronic dyspnea Chronic kidney disease, stage 4 (severe) Cough GERD (gastroesophageal reflux disease) HTN (hypertension) Irregular heart beats follows with Dr. Orozco Major depressive disorder Morbid obesity Osteoarthritis Wheezing intermittent---reason for inhalers Surgical History History of bilateral tubal ligation History of cholecystectomy History of colonoscopy History of dilatation and curettage History of esophagogastroduodenoscopy (EGD) History of right knee joint replacement History of tooth extraction History of total left knee replacement (TKR) Family History Mother Heart disease Stroke Family history of diabetes mellitus Grandmother (Maternal) Family history of diabetes mellitus Other No family history of adverse response to anesthesia Social History Smoking Status: Never smoker Second Hand Exposure: No; Hx Alcohol Use: No Hx Substance Use: No Preferred Language: Turkish Communication Ability: Effective Soldering Inspector Required: No Beliefs That Will Affect Care: None Current Living Situation: Spouse Feels Safe at Home: Yes Assistive Devices: Glasses Review of Systems See HPI for pertinent positives & negatives. and A total of 10 systems reviewed and were otherwise negative Physical Exam Vital Signs Vital Signs - 24 hr 02/16/21 16:26 02/16/21 16:34 02/16/21 19:30 Temperature 36.9 C Temperature Source Oral Pulse Rate 78 Pulse Rate [Apical] 76 Pulse Rhythm Regular Pulse Strength Normal Respiratory Rate 27 H 24 Respiratory Effort / Characteristics Non-Labored Spontaneous Respiratory Depth Normal Respiratory Pattern Regular Blood Pressure 193/100 H Blood Pressure [Left Arm] 189/70 H Blood Pressure Mean 131 Blood Pressure Mean [Left Arm] 109 Pulse Oximetry 95 96 Oxygen Delivery Method Room Air Room Air Room Air Sepsis Recent Fever Within 48 Hours No Sepsis New/Unexplained Change in Mental Status N/A Sepsis Action Taken by Nursing No Action Required 02/16/21 20:00 02/16/21 20:30 02/16/21 21:00 Temperature Temperature Source Pulse Rate Pulse Rate [Apical] 78 78 82 Pulse Rhythm Pulse Strength Respiratory Rate 20 18 Respiratory Effort / Characteristics Respiratory Depth Respiratory Pattern Blood Pressure Blood Pressure [Left Arm] 185/56 H 169/111 H 162/66 H Blood Pressure Mean Blood Pressure Mean [Left Arm] 99 130 98 Pulse Oximetry 95 96 95 Oxygen Delivery Method Room Air Room Air Room Air Sepsis Recent Fever Within 48 Hours Sepsis New/Unexplained Change in Mental Status Sepsis Action Taken by Nursing 02/16/21 21:30 02/16/21 22:42 Temperature Temperature Source Pulse Rate Pulse Rate [Apical] 83 78 Pulse Rhythm Pulse Strength Respiratory Rate Respiratory Effort / Characteristics Respiratory Depth Respiratory Pattern Blood Pressure Blood Pressure [Left Arm] 170/66 H 209/77 H Blood Pressure Mean Blood Pressure Mean [Left Arm] 100 121 Pulse Oximetry 95 96 Oxygen Delivery Method Room Air Room Air Sepsis Recent Fever Within 48 Hours Sepsis New/Unexplained Change in Mental Status Sepsis Action Taken by Nursing Constitutional: Vital signs reviewed. Eyes: Pupils are equal round reactive to light. Conjunctiva are noninjected. ENT: Pharynx is clear without erythema or exudate. Mucous membranes are dry. Neck supple without meningeal signs. Respiratory: Clear to auscultation bilaterally. Breath sounds are equal bilater ally. Cardiovascular: Regular rate and rhythm. No rubs or gallops. GI: Soft, nondistended and nontender. Bowel sounds are present. Musculoskeletal: No peripheral edema. No lower extremity tenderness. Integumentary: No cyanosis. or jaundice. Neurologic: The patient is awake and alert. Cranial nerves II-XII are intact. Motor is 5 out of 5 all extremities. Sensation is intact to light touch all extremities. Normal speech. No pronator drift. No limb ataxia. No nystagmus. No dysdiadochokinesis. Psychiatric: Normal affect. Not anxious appearing. Course Administered Medications Sodium Chloride (Nss) 500 mls @ 125 mls/hr IV .Q4H MONSE Stop: 03/18/21 16:29 Last Admin: 02/16/21 19:29 Dose: 125 mls/hr Documented by: [id number] Discontinued Medications Promethazine HCl (Phenergan) 12.5 mg in 50.5 mls @ 202 mls/hr IV NOW STA Stop: 02/16/21 16:44 Last Infusion: 02/16/21 19:46 Dose: 0 mls/hr Documented by: [id number] Admin: 02/16/21 19:30 Dose: 202 mls/hr Documented by: [id number] Promethazine HCl (Promethazine 12.5 Mg/50.5 Ml Nss) Confirm Administered Dose 12.5 mg IV .STK-MED ONE Stop: 02/16/21 19:27 Last Admin: 02/16/21 19:33 Dose: Not Given Documented by: [id number] Medical Decision Making Differential Diagnosis Dehydration, ELLY, metabolic derangement, intracranial hemorrhage, CVA Medical Records Attestation: I reviewed the patient's medical records. I did perform a limited focused review of portions of the patient's old chart on the electronic medical record. The patient was discharged from [facility] late November for a right parietal ICH. She had an MRI/MRA of the head and neck which showed a bleed without any underlying mass or any significant vascular lesions. She was discharged home with health services due to significant weakness and gait imbalance. She was seen here for nausea and dizziness on January 25 and diagnosed with a UTI and discharged home with ant ibiotics. Home Medications Current Medication List: was personally reviewed by me Laboratory Data Attestation: I reviewed the patient's lab results. Result diagrams: 02/16/21 16:51 02/16/21 16:51 Lab Results 02/16/21 02/16/21 02/16/21 Range/Units 16:51 16:51 16:51 WBC 6.58 (4.8-10.8) K/uL RBC 3.98 L (4.2-5.4) M/uL Hgb 12.4 (12.0-16.0) g/dL Hct 38.9 (37-47) % MCV 97.7 (80-100) fL MCH 31.2 (25-34) pg MCHC 31.9 L (32-36) g/dL RDW Std Deviation 49.6 H (36.4-46.3) fL RDW Coeff of Chauncey 13.7 (11.5-14.5) % Plt Count 224 (130-400) K/uL MPV 9.6 (7.4-10.4) fL Immature Gran % (Auto) 0.3 % Neut % (Auto) 60.4 % Lymph % (Auto) 25.4 % [place] % (Auto) 10.0 % Eos % (Auto) 3.3 % Baso % (Auto) 0.6 % Neut # (Auto) 3.97 (1.4-6.5) K/uL Lymph # (Auto) 1.67 (1.2-3.4) K/uL [place] # (Auto) 0.66 H (0.11-0.59) K/uL Eos # (Auto) 0.22 (0-0.5) K/uL Baso # (Auto) 0.04 (0-0.2) K/uL Immature Gran # (Auto) 0.02 (0.00-0.02) K/uL PT 10.0 (9.0-12.0) Seconds INR 1.0 (0.9-1.1) APTT 24.6 (21.0-31.0) Seconds PTT Ratio 0.9 Sodium 141 (136-145) mmol/L Potassium 3.8 (3.5-5.1) mmol/L Chloride 108 H (98-107) mmol/L Carbon Dioxide 27 (21-32) mmol/L Anion Gap 6.0 (3-11) BUN 46 H (7-18) mg/dl Creatinine 2.20 H (0.6-1.2) mg/dl Est Cr Clr Drug Dosing 25.0 ml/min Est GFR ( Amer) 24.8 ml/min Est GFR (Non-Af Amer) 21.4 ml/min BUN/Creatinine Ratio 20.8 H (10-20) Glucose 104 H (70-99) mg/dl Calcium 10.5 H (8.5-10.1) mg/dl Total Bilirubin 0.5 (0.2-1) mg/dl AST 16 (15-37) U/L ALT 25 (12-78) U/L Alkaline Phosphatase 53 (45-117) U/L Troponin I (0-0.045) ng/ml Total Protein 7.6 (6.4-8.2) gm/dl Albumin 3.4 (3.4-5.0) gm/dl Globulin 4.2 H (2.5-4.0) gm/dl Albumin/Globulin Ratio 0.8 L (0.9-2) Urine Color Urine Appearance (Clear) Urine pH (4.5-7.5) Ur Specific Robinson (1.000-1.030) Urine Protein (Negative) Urine Glucose (UA) (Negative) Urine Ketones (Negative) Urine Blood (Negative) Urine Nitrite (Negative) Urine Bilirubin (Negative) Urine Urobilinogen (Negative) Ur Leukocyte Esterase (Negative) Urine WBC (Auto) (0-5) /hpf Urine RBC (Auto) (0-4) /hpf U Hyaline Cast (Auto) (0-5) /lpf U Epithel Cells (Auto) (0-5) /lpf Urine Bacteria (Auto) (Negative) SARS-CoV-2, RNA, NAAT (NEGATIVE) 02/16/21 02/16/21 02/16/21 Range/Units 16:51 21:03 21:03 WBC (4.8-10.8) K/uL RBC (4.2-5.4) M/uL Hgb (12.0-16.0) g/dL Hct (37-47) % MCV (80-100) fL MCH (25-34) pg MCHC (32-36) g/dL RDW Std Deviation (36.4-46.3) fL RDW Coeff of Chauncey (11.5-14.5) % Plt Count (130-400) K/uL MPV (7.4-10.4) fL Immature Gran % (Auto) % Neut % (Auto) % Lymph % (Auto) % [place] % (Auto) % Eos % (Auto) % Baso % (Auto) % Neut # (Auto) (1.4-6.5) K/uL Lymph # (Auto) (1.2-3.4) K/uL [place] # (Auto) (0.11-0.59) K/uL Eos # (Auto) (0-0.5) K/uL Baso # (Auto) (0-0.2) K/uL Immature Gran # (Auto) (0.00-0.02) K/uL PT (9.0-12.0) Seconds INR (0.9-1.1) APTT (21.0-31.0) Seconds PTT Ratio Sodium (136-145) mmol/L Potassium (3.5-5.1) mmol/L Chloride (98-107) mmol/L Carbon Dioxide (21-32) mmol/L Anion Gap (3-11) BUN (7-18) mg/dl Creatinine (0.6-1.2) mg/dl Est Cr Clr Drug Dosing ml/min Est GFR ( Amer) ml/min Est GFR (Non-Af Amer) ml/min BUN/Creatinine Ratio (10-20) Glucose (70-99) mg/dl Calcium (8.5-10.1) mg/dl Total Bilirubin (0.2-1) mg/dl AST (15-37) U/L ALT (12-78) U/L Alkaline Phosphatase (45-117) U/L Troponin I < 0.015 (0-0.045) ng/ml Total Protein (6.4-8.2) gm/dl Albumin (3.4-5.0) gm/dl Globulin (2.5-4.0) gm/dl Albumin/Globulin Ratio (0.9-2) Urine Color Yellow Urine Appearance Clear (Clear) Urine pH 5.0 (4.5-7.5) Ur Specific Robinson 1.017 (1.000-1.030) Urine Protein Negative (Negative) Urine Glucose (UA) Negative (Negative) Urine Ketones Negative (Negative) Urine Blood Negative (Negative) Urine Nitrite Positive A (Negative) Urine Bilirubin Negative (Negative) Urine Urobilinogen Negative (Negative) Ur Leukocyte Esterase 1+ H (Negative) Urine WBC (Auto) 5-10 H (0-5) /hpf Urine RBC (Auto) 0-4 (0-4) /hpf U Hyaline Cast (Auto) 1-5 (0-5) /lpf U Epithel Cells (Auto) 5-10 H (0-5) /lpf Urine Bacteria (Auto) 2+ H (Negative) SARS-CoV-2, RNA, NAAT NEGATIVE (NEGATIVE) Imaging Data Radiologist's Impression: Chest X-Ray 02/16/21 16:30 SINGLE VIEW CHEST CLINICAL HISTORY: Dizziness. FINDINGS: An AP, portable, upright chest radiograph is compared to study dated 01/25/2021. The heart is mildly enlarged noting atherosclerotic calcification of the thoracic ureter. The pulmonary vasculature is noncongested. Chronic inter stitial thickening is similar to previous. There are low lung volumes with bibasilar atelectasis. The lungs and pleural spaces are otherwise clear. No pneumothorax is seen. The skeletal structures are osteopenic. The bony thorax is grossly intact. IMPRESSION: No active disease in the chest. ACT 112: Negative or not required by law. Electronically signed by: Ryan Mcfarland M.D. 02/16/2021 5:[address] 02/16/21 16:30 CT SCAN OF THE BRAIN WITHOUT IV CONTRAST CLINICAL HISTORY: Vertigo. COMPARISON STUDY: CT of the brain dated 01/25/2021 and 12/18/2020. TECHNIQUE: Unenhanced axial CT scan of the brain is performed from the vertex to the skull base. A dose lowering technique was utilized adhering to the principles of ALARA. CT DOSE: 994.86 mGycm FINDINGS: Brain parenchyma: A small focus of encephalomalacia in the high posterior parietal white matter is unchanged from 01/25/2021 and consistent with a site of previous hemorrhage. Left periventricular hypodensity is also unchanged. There are age-related involutional changes noting minimal subcortical and periventricular microangiopathic change. There is no hemorrhage, mass effect, or evidence of acute territorial ischemia by CT criteria. Denise-white matter differentiation is preserved. No extra-axial fluid collection is seen. Ventricles, sulci, cisterns: Prominent secondary to involutional change. Intracranial vasculature: There is atherosclerotic calcification of the cavernous carotid arteries. Calvarium: Unremarkable. Sinuses and mastoids: There is mild mucosal thickening in the left maxillary antrum. The remaining paranasal sinuses are clear. The mastoid air cells are well pneumatized. Orbits: The bony orbits are grossly intact. IMPRESSION: 1. There is no hemorrhage, mass effect, or evidence of acute territorial ischemia by CT criteria. 2. A focus of high right posterior parietal encephalomalacia is consistent with a site of prior hemorrhage. This is unchanged from previous. ACT 112: Negative or not required by law. Electronically signed by: Ryan Mcfarland M.D. 02/16/2021 5:50 PM ECG Data Attestation: I personally reviewed and interpreted this ECG as follows: Indication: + other (Dizziness) Rate (beats per minute): 79 Rhythm: + normal sinus ECG Hoffman: + Normal ECG ST segments: no ST elevation ECG Findings: no PVCs Comparison ECG Date: from (January 25, 2021) Change: no significant change MDM Narrative I did evaluate the patient as noted above. The patient is presenting with weakness and dizziness for the past 5 days. According to her daughter she has not been doing very well since she was discharged from the hospital for her hemorrhagic stroke. She is not eating or drinking very much and has not urinated much over the past 24 hours. On exam she is neurologically intact. IV access was established. I did place an order for continuous cardiac monitoring. The monitor showed normal sinus rhythm at a rate of 72 bpm. I did order and personally review the patient's 12-lead EKG as described above. She has no acute ischemic changes. I did order and personally reviewed the images of the patient's chest x-ray as described above. There is no evidence of pneumonia. I did order a urine analysis. She does appear to have evidence of a UTI. She was recently on antibiotics. Urine culture was sent. I did order and review the patient's blood work as noted in the electronic medical record. CBC is unremarkable without leukocytosis or anemia. Electrolytes are unremarkable other than a chloride of 108. Her BUN and creatinine are elevated at 46 and 2.2. Calcium is slightly elevated at 10.5. I did order a CT of the head. I did review the images myself as well as the radiology report as described above. There is no evidence of acute intracranial abnormality. I did treat the patient with IV Phenergan and normal saline. On reassessment she is feeling slightly better. Her family believe that she needs to be hospitalized. She is not doing well at home and her states that he has no way of taking care of her. She will be hospitalized for further care and evaluation. I did discuss the case with the hospitalist and case work aide. Screening Covid test is negative. Impression & Plan Vertigo, Chronic kidney disease, Lightheadedness, Acute dehydration, Acute UTI, Adult failure to thrive Discharge Plan Visit Data Chief Complaint: Weakness Stated Complaint: WEAKNESS, DIFFICULTY AMBULATING ED Provider: John Rodas Discharge Problem: Vertigo, Chronic kidney disease, Lightheadedness, Acute dehydration, Acute UTI, Adult failure to thrive Patient Disposition: Being Evaluated by Hospitalist Forms Stand Alone Forms: [facility] Prescriptions Prescriptions: No Action montelukast 10 mg tablet 10 mg PO HS Qty: 90 RF: 3 calcitriol 0.25 mcg capsule 0.25 mcg PO QAM Qty: 90 RF: 3 cholecalciferol (vitamin D3) [Vitamin D3] 25 mcg (1,000 unit) tablet 50 mcg PO QAM Qty: 90 RF: 3 amlodipine 10 mg tablet 10 mg PO DAILY RF: 0 buspirone 5 mg tablet 5 mg PO TID RF: 0 carvedilol [Coreg] 12.5 mg tablet 12.5 mg PO BID RF: 0 clonidine HCl 0.1 mg tablet 0.1 mg sublingual TID RF: 0 hydralazine 50 mg tablet 50 mg PO TID RF: 0 aripiprazole [Abilify] 10 mg tablet 10 mg PO .QHS RF: 0 alprazolam 1 mg tablet 1 mg PO BID RF: 0 zolpidem 10 mg tablet 10 mg PO HS RF: 0 sertraline 100 mg tablet 100 mg PO DAILY RF: 0 Referrals Referrals: Neri Denson MD [Primary Care Provider] -
--- NOTE | 2021-02-16 17:08 | XRay Report ---
SINGLE VIEW CHEST CLINICAL HISTORY: Dizziness. FINDINGS: An AP, portable, upright chest radiograph is compared to study dated 01/25/2021. The heart is mildly enlarged noting atherosclerotic calcification of the thoracic ureter. The pulmonary vascula ture is noncongested. Chronic interstitial thickening is similar to previous. There are low lung volu mes with bibasilar atelectasis. The lungs and pleural spaces are otherwise clear. No pneumothorax is seen. The skeletal structures are osteopenic. The bony thorax is grossly intact. IMPRESSION: No active disease in the chest. ACT 112: Negative or not required by law. Electronically signed by: Ryan Mcfarland M.D. 02/16/2021 5:06 PM
[2021-02-16 17:10] LABS: Basophils # (auto) 0.04 K/uL (0-0.2); Basophils % (auto) 0.6 %; Eosinophils # (auto) 0.22 K/uL (0-0.5); Eosinophils % (auto) 3.3 %; Hematocrit (blood only) 38.9 % (37-47); Hemoglobin 12.4 g/dL (12.0-16.0); Immature Granulocytes # (auto) 0.02 K/uL (0.00-0.02); Immature Granulocytes % (auto) 0.3 %; Lymphocytes # (auto) 1.67 K/uL (1.2-3.4); Lymphocytes % (auto) 25.4 %; Mean Corpuscular Hemoglobin 31.2 pg (25-34); Mean Corpuscular Hgb Conc 31.9 g/dL (32-36); Mean Corpuscular Volume 97.7 fL (80-100); Mean Platelet Volume 9.6 fL (7.4-10.4); Monocytes # (auto) 0.66 K/uL (0.11-0.59); Neutrophils # (auto) 3.97 K/uL (1.4-6.5); Neutrophils % (auto) 60.4 %; Platelet Count 224 K/uL (130-400); RDW Coefficient of Variation 13.7 % (11.5-14.5); RDW Standard Deviation 49.6 fL (36.4-46.3); Red Blood Count 3.98 M/uL (4.2-5.4); White Blood Count 6.58 K/uL (4.8-10.8)
[2021-02-16 17:23] LABS: Partial Thromboplastin Ratio 0.9; Partial Thromboplastin Time 24.6 Seconds (21.0-31.0)
[2021-02-16 17:28] LABS: Albumin Level 3.4 gm/dl (3.4-5.0); BUN Creatinine Ratio 20.8 (10-20); Calcium 10.5 mg/dl (8.5-10.1); Est GFR (African American) 24.8 ml/min; Est GFR (Non-African American) 21.4 ml/min; Potassium 3.8 mmol/L (3.5-5.1)
[2021-02-16 17:31] LABS: Albumin Globulin Ratio 0.8 (0.9-2); Bilirubin,Total 0.5 mg/dl (0.2-1); Globulin 4.2 gm/dl (2.5-4.0); Total Protein 7.6 gm/dl (6.4-8.2)
--- NOTE | 2021-02-16 17:51 | CT Scan Report ---
CT SCAN OF THE BRAIN WITHOUT IV CONTRAST CLINICAL HISTORY: Vertigo. COMPARISON STUDY: CT of the brain dated 01/25/2021 and 12/18/2020. TECHNIQUE: Unenhanced axial CT scan of the brain is performed from the vertex to the skull base. A do se lowering technique was utilized adhering to the principles of ALARA. CT DOSE: 994.86 mGycm FINDINGS: Brain parenchyma: A small focus of encephalomalacia in the high posterior parietal white matter is un changed from 01/25/2021 and consistent with a site of previous hemorrhage. Left periventricular hypod ensity is also unchanged. There are age-related involutional changes noting minimal subcortical and periventricular microangiopathic change. There is no hemorrhage, mass effect, or evidence of acute te rritorial ischemia by CT criteria. Denise-white matter differentiation is preserved. No extra-axial flu id collection is seen. Ventricles, sulci, cisterns: Prominent secondary to involutional change. Intracranial vasculature: There is atherosclerotic calcification of the cavernous carotid arteries. Calvarium: Unremarkable. Sinuses and mastoids: There is mild mucosal thickening in the left maxillary antrum. The remaining pa ranasal sinuses are clear. The mastoid air cells are well pneumatized. Orbits: The bony orbits are grossly intact. IMPRESSION: 1. There is no hemorrhage, mass effect, or evidence of acute territorial ischemia by CT criteria. 2. A focus of high right posterior parietal encephalomalacia is consistent with a site of prior hemor rhage. This is unchanged from previous. ACT 112: Negative or not required by law. Electronically signed by: Ryan Mcfarland M.D. 02/16/2021 5:50 PM
[2021-02-16] MEDS ORDERED: PROMETHAZINE 12.5 MG/50.5 ML NSS IV ONE (19:26)
[2021-02-16] MEDS: SODIUM CHLORIDE 0.9% 500 ML IV SCH (19:29)
[2021-02-16 21:19] LABS: Appearance Urine Clear (Clear); Bacteria Urine Automated 2+ (Negative); Bilirubin Urine Negative (Negative); Blood Urine Negative (Negative); Color Urine Yellow; Glucose Urine UA Negative (Negative); Ketones Urine Negative (Negative); Leukocyte Esterase Urine 1+ (Negative); Nitrite Urine Positive (Negative); Protein Urine Negative (Negative); RBC Urine Automated 0-4 /hpf (0-4); Specific Gravity Urine 1.017 (1.000-1.030); Urobilinogen Urine Negative (Negative)
--- NOTE | 2021-02-16 22:38 | History & Physical Report ---
Date of Service February 16, 2021 Assessment & Plan (1) Lightheadedness: Plan: Lightheadedness -Differential includes polypharmacy side effect, dehydration in setting of decreased intake, BPPV -Lower suspicion for acute neurologic process given CTH neg, benign neuro exam -Clear CBC, unremarkable BMP, normal EKG -Continue IVF NSS 80 ml/hr, encourage PO intake -Zofran PRN -PT/OT ordered -Closely monitor for development of neurologic symptoms/deficits -Anticipated d/c to SNF/rehab History of recent CVA -MRI per 11/2020 [facility] records- intraparenchymal right posterior parieto- occipital hematoma with edema, chronic infarct of left parietal lobe -Admission CTH- right posterior parietal infarct consistent with prior hemorrhage, no new bleed -Not on any antiplatelet therapy -Low suspicion for acute ischemic stroke given normal neurologic exam and clinical history -Serial neuro exams q4h -Neurology consulted ELLY on CKD -Baseline BUN low 30s, Cr 1.7-1.9 -Admission BUN 46, Cr 2.20 -Likely due to decreased fluid intake in setting of CKD -Continue NSS 80 ml/hr -Trend BMP HTN -Continue home carvedilol BID, clonidine TID, hydralazine TID, amlodipine -SBP > 200 in ED likely due to missing home clonidine and Coreg dose -Continue to monitor UTI -01/25 [facility] ED visit- UTI diagnosed, discharged on antibiotics -UA- nitrites, leukocyte esterase, WBCs, bacteria positive -No urinary symptoms, normal WBC -Monitor for dysuria, initiate abx if febrile or symptomatic -Trend CBC FENGI: Low-salt Code status: Full DVT ppx: SCDs Isolation: None Dispo: Med/Surg (2) History of CVA (cerebrovascular accident): (3) ELLY (acute kidney injury): (4) CKD (chronic kidney disease), stage IV: History of Present Illness Chief Complaint: Lightheadedness Primary Care Provider: Neri Denson MD 76 yo F with PMH CKD4, HTN, CVA, anxiety presenting with lightheadedness. Pt had R parieto-occipital hemorrhagic stroke in November 2020, managed at [facility] and discharged home with home health services. Since then pt has had intermittent lightheadedness and nausea, had ED visit in late December for these symptoms and found to have UTI for which she received treatment. Symptoms decreased slightly but worsened again 5 days ago- reports constant lightheadedness with sensation of room spinning, associated loss of appetite and nausea. Lightheadedness worsens with movement. Pt has not eaten or drank much over last 2 weeks. Denies LOC, syncope, dysuria, urgency or retention. Denies headache, weakness, numbness, tingling, vision or hearing change, imbalance. Allergies Allergy/AdvReac Type Severity Reaction Status Date / Time fentanyl Allergy Intermediate extreme Verified 01/04/21 11:47 confusion/hallucination amoxicillin Allergy Mild Hives Verified 01/04/21 11:47 Penicillins Allergy Mild RASH TO Verified 01/04/21 11:47 AMOXIL, NO RESP PROBLEMS Home Medications Medication Instructions Recorded Confirmed Type alprazolam 1 mg tablet 1 mg PO BID 07/19/18 02/16/21 History montelukast 10 mg tablet 10 mg PO HS #90 tab 02/17/19 02/16/21 Rx zolpidem 10 mg tablet 10 mg PO HS 07/14/19 02/16/21 History calcitriol 0.25 mcg capsule 0.25 mcg PO QAM #90 cap 08/16/20 02/16/21 Rx cholecalciferol (vitamin D3) 25 50 mcg PO QAM #90 tab 09/02/20 02/16/21 Rx mcg (1,000 unit) tablet (Vitamin D3) amlodipine 10 mg tablet 10 mg PO DAILY 01/05/21 02/16/21 History aripiprazole 10 mg tablet (Abilify) 10 mg PO .QHS tab 01/05/21 02/16/21 History buspirone 5 mg tablet 5 mg PO TID 01/05/21 02/16/21 History carvedilol 12.5 mg tablet (Coreg) 12.5 mg PO BID 01/05/21 02/16/21 History clonidine HCl 0.1 mg tablet 0.1 mg SUBLINGUAL TID tab 01/05/21 02/16/21 History hydralazine 50 mg tablet 50 mg PO TID 01/05/21 02/16/21 History sertraline 100 mg tablet 100 mg PO DAILY 02/16/21 02/16/21 History Past Med/Surg History Medical History Anxiety Chronic dyspnea Chronic kidney disease, stage 4 (severe) Cough GERD (gastroesophageal reflux disease) HTN (hypertension) Irregular heart beats follows with Dr. Orozco Major depressive disorder Morbid obesity Osteoarthritis Wheezing intermittent---reason for inhalers Surgical History History of bilateral tubal ligation History of cholecystectomy History of colonoscopy History of dilatation and curettage History of esophagogastroduodenoscopy (EGD) History of right knee joint replacement History of tooth extraction History of total left knee replacement (TKR) Family History Mother , age 82 of complications of diabetes Heart disease Stroke Family history of diabetes mellitus Grandmother (Maternal) Family history of diabetes mellitus Father , age 80 of liver issues Liver disease Other No family history of adverse response to anesthesia Social History Smoking Status: Never smoker Second Hand Exposure: No; Hx Alcohol Use: No Hx Substance Use: No Preferred Language: Vietnamese Communication Ability: Effective 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 Beliefs That Will Affect Care: None marital status: Current Living Situation: Spouse current occupational status: retired 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 +Mild persistent tremor of LUE. Cranial nerves II-XII are intact. Motor is 5 out of 5 all extremities. S ensation is intact to light touch in all extremities. Normal speech. No pronator drift. No nystagmus. No [id number] dysmetria. Skin: no rashes or ecchymoses Ext: chronic lymphedema b/l, distal pulses 2+ Results & Data Results & Data ([facility]) Vital Signs (Past 12 Hours) Vital Signs Temp Pulse Pulse Resp BP BP Pulse Ox 02/16/21 21:00 82 162/66 H 95 02/16/21 20:30 78 18 169/111 H 96 02/16/21 20:00 78 20 185/56 H 95 02/16/21 19:30 76 24 189/70 H 96 02/16/21 16:26 36.9 C 78 27 H 193/100 H 95 Laboratory Results Laboratory Results WBC 6.58 K/uL (4.8-10.8) 02/16/21 16:51 RBC 3.98 M/uL (4.2-5.4) L 02/16/21 16:51 Hgb 12.4 g/dL (12.0-16.0) 02/16/21 16:51 Hct 38.9 % (37-47) 02/16/21 16:51 MCV 97.7 fL (80-100) 02/16/21 16:51 MCH 31.2 pg (25-34) 02/16/21 16:51 MCHC 31.9 g/dL (32-36) L 02/16/21 16:51 RDW Std Deviation 49.6 fL (36.4-46.3) H 02/16/21 16:51 RDW Coeff of Chauncey 13.7 % (11.5-14.5) 02/16/21 16:51 Plt Count 224 K/uL (130-400) 02/16/21 16:51 MPV 9.6 fL (7.4-10.4) 02/16/21 16:51 Immature Gran % (Auto) 0.3 % 02/16/21 16:51 Neut % (Auto) 60.4 % 02/16/21 16:51 Lymph % (Auto) 25.4 % 02/16/21 16:51 [place] % (Auto) 10.0 % 02/16/21 16:51 Eos % (Auto) 3.3 % 02/16/21 16:51 Baso % (Auto) 0.6 % 02/16/21 16:51 Neut # (Auto) 3.97 K/uL (1.4-6.5) 02/16/21 16:51 Lymph # (Auto) 1.67 K/uL (1.2-3.4) 02/16/21 16:51 [place] # (Auto) 0.66 K/uL (0.11-0.59) H 02/16/21 16:51 Eos # (Auto) 0.22 K/uL (0-0.5) 02/16/21 16:51 Baso # (Auto) 0.04 K/uL (0-0.2) 02/16/21 16:51 Immature Gran # (Auto) 0.02 K/uL (0.00-0.02) 02/16/21 16:51 PT 10.0 Seconds (9.0-12.0) 02/16/21 16:51 INR 1.0 (0.9-1.1) 02/16/21 16:51 APTT 24.6 Seconds (21.0-31.0) 02/16/21 16:51 PTT Ratio 0.9 02/16/21 16:51 Sodium 141 mmol/L (136-145) 02/16/21 16:51 Potassium 3.8 mmol/L (3.5-5.1) 02/16/21 16:51 Chloride 108 mmol/L (98-107) H 02/16/21 16:51 Carbon Dioxide 27 mmol/L (21-32) 02/16/21 16:51 Anion Gap 6.0 (3-11) 02/16/21 16:51 BUN 46 mg/dl (7-18) H 02/16/21 16:51 Creatinine 2.20 mg/dl (0.6-1.2) H 02/16/21 16:51 Est Cr Clr Drug Dosing 25.0 ml/min 02/16/21 16:51 Est GFR ( Amer) 24.8 ml/min 02/16/21 16:51 Est GFR (Non-Af Amer) 21.4 ml/min 02/16/21 16:51 BUN/Creatinine Ratio 20.8 (10-20) H 02/16/21 16:51 Glucose 104 mg/dl (70-99) H 02/16/21 16:51 Calcium 10.5 mg/dl (8.5-10.1) H 02/16/21 16:51 Total Bilirubin 0.5 mg/dl (0.2-1) 02/16/21 16:51 AST 16 U/L (15-37) 02/16/21 16:51 ALT 25 U/L (12-78) 02/16/21 16:51 Alkaline Phosphatase 53 U/L (45-117) 02/16/21 16:51 Troponin I < 0.015 ng/ml (0-0.045) 02/16/21 16:51 Total Protein 7.6 gm/dl (6.4-8.2) 02/16/21 16:51 Albumin 3.4 gm/dl (3.4-5.0) 02/16/21 16:51 Globulin 4.2 gm/dl (2.5-4.0) H 02/16/21 16:51 Albumin/Globulin Ratio 0.8 (0.9-2) L 02/16/21 16:51 Urine Color Yellow 02/16/21 21:03 Urine Appearance Clear (Clear) 02/16/21 21:03 Urine pH 5.0 (4.5-7.5) 02/16/21 21:03 Ur Specific [place] 1.017 (1.000-1.030) 02/16/21 21:03 Urine Protein Negative (Negative) 02/16/21 21:03 Urine Glucose (UA) Negative (Negative) 02/16/21 21:03 Urine Ketones Negative (Negative) 02/16/21 21:03 Urine Blood Negative (Negative) 02/16/21 21:03 Urine Nitrite Positive (Negative) A 02/16/21 21:03 Urine Bilirubin Negative (Negative) 02/16/21 21:03 Urine Urobilinogen Negative (Negative) 02/16/21 21:03 Ur Leukocyte Esterase 1+ (Negative) H 02/16/21 21:03 Urine WBC (Auto) 5-10 /hpf (0-5) H 02/16/21 21:03 Urine RBC (Auto) 0-4 /hpf (0-4) 02/16/21 21:03 U Hyaline Cast (Auto) 1-5 /lpf (0-5) 02/16/21 21:03 U Epithel Cells (Auto) 5-10 /lpf (0-5) H 02/16/21 21:03 Urine Bacteria (Auto) 2+ (Negative) H 02/16/21 21:03 SARS-CoV-2, RNA, NAAT NEGATIVE (NEGATIVE) 02/16/21 21:03 Impressions Chest X-Ray 02/16/21 16:30 SINGLE VIEW CHEST CLINICAL HISTORY: Dizziness. FINDINGS: An AP, portable, upright chest radiograph is compared to study dated 01/25/2021. The heart is mildly enlarged noting atherosclerotic calcification of the thoracic ureter. The pulmonary vasculature is noncongested. Chronic interstitial thickening is similar to previous. There are low lung volumes with bibasilar atelectasis. The lungs and pleural spaces are otherwise clear. No pneumothorax is seen. The skeletal structures are osteopenic. The bony thorax is grossly intact. IMPRESSION: No active disease in the chest. ACT 112: Negative or not required by law. Electronically signed by: Ryan Mcfarland M.D. 02/16/2021 5:[address] 02/16/21 16:30 CT SCAN OF THE BRAIN WITHOUT IV CONTRAST CLINICAL HISTORY: Vertigo. COMPARISON STUDY: CT of the brain dated 01/25/2021 and 12/18/2020. TECHNIQUE: Unenhanced axial CT scan of the brain is performed from the vertex to the skull base. A dose lowering technique was utilized adhering to the principles of ALARA. CT DOSE: 994.86 mGycm FINDINGS: Brain parenchyma: A small focus of encephalomalacia in the high posterior parietal white matter is unchanged from 01/25/2021 and consistent with a site of previous hemorrhage. Left periventricular hypodensity is also unchanged. There are age-related involutional changes noting minimal subcortical and periventricular microangiopathic change. There is no hemorrhage, mass effect, or evidence of acute territorial ischemia by CT criteria. Denise-white matter differentiation is preserved. No extra-axial fluid collection is seen. Ventricles, sulci, cisterns: Prominent secondary to involutional change. Intracranial vasculature: There is atherosclerotic calcification of the cavernous carotid arteries. Calvarium: Unremarkable. Sinuses and mastoids: There is mild mucosal thickening in the left maxillary antrum. The remaining paranasal sinuses are clear. The mastoid air cells are well pneumatized. Orbits: The bony orbits are grossly intact. IMPRESSION: 1. There is no hemorrhage, mass effect, or evidence of acute territorial ischemia by CT criteria. 2. A focus of high right posterior parietal encephalomalacia is consistent with a site of prior hemorrhage. This is unchanged from previous. ACT 112: Negative or not required by law. Electronically signed by: Ryan Mcfarland M.D. 02/16/2021 5:50 PM Supervising Physician Co-Signing Physician Notes Attending addendum: I have physically seen this patient, have supervised the medical residents activities, and agree with the H&P unless as otherwise noted. Assessment and Plan: Worsening generalized fatigue/progressive debilitation- Likely sequela of recent ICH NSS at 80 mils per hour x1 L Consult PT/OT field services analyst regarding likely need forSNF/rehab CT head without acute changes Nonfocal examination, therefore no need for MRI repeat MRI Uncontrolled hypertension- Admit to monitored bed Patient missed 2 doses of clonidine, 2 doses hydralazine and 1 dose of carvedilol. At this time, give clonidine give hydralazine and carvedilol, along with Lopressor 5 mg IV x1 for pressure 220s/70s CKD stage III- Creatinine 2.20 admission, with range 1.70-2.44 IV fluids as noted above, and repeat laboratories in a.m. Remaining orders and notations as noted Resident Activity Tracking Resident Involvement: Resident Care Provided Care Provided: Adult [facility] Medicine
[2021-02-16] MEDS ORDERED: METOPROLOL TARTRATE 1 MG/ML VIAL IV STA (23:17)
[2021-02-16] MEDS ORDERED: carvediloL 12.5 MG TAB PO STA (23:18)
[2021-02-16] MEDS ORDERED: cloNIDine HCL 0.1 MG TAB PO STA (23:19)
[2021-02-17] MEDS ORDERED: hydrALAZINE HCL 20 MG/ML VIAL IV STA (00:14)
[2021-02-17] MEDS: SODIUM CHLORIDE 0.9% 500 ML IV SCH ×3 (00:22→08:56)
[2021-02-17] MEDS ORDERED: ALUMINUM/MAGNESIUM SUSP 30 ML UDC PO PRN (01:01)
[2021-02-17] MEDS ORDERED: MAGNESIUM HYDROXIDE SUSP 30 ML UDC PO PRN (01:01)
[2021-02-17] MEDS ORDERED: POLYETHYLENE (MIRALAX) 17 GM PACK PO PRN (01:01)
[2021-02-17] MEDS: MELATONIN 3 MG TAB PO PRN ×2 (03:05→22:32)
[2021-02-17 06:21] LABS: Basophils # (auto) 0.02 K/uL (0-0.2); Basophils % (auto) 0.3 %; Eosinophils # (auto) 0.19 K/uL (0-0.5); Eosinophils % (auto) 2.5 %; Hematocrit (blood only) 36.4 % (37-47); Hemoglobin 11.7 g/dL (12.0-16.0); Immature Granulocytes # (auto) 0.03 K/uL (0.00-0.02); Immature Granulocytes % (auto) 0.4 %; Lymphocytes # (auto) 1.27 K/uL (1.2-3.4); Lymphocytes % (auto) 16.7 %; Mean Corpuscular Hemoglobin 31.5 pg (25-34); Mean Corpuscular Hgb Conc 32.1 g/dL (32-36); Mean Corpuscular Volume 97.8 fL (80-100); Mean Platelet Volume 9.5 fL (7.4-10.4); Monocytes # (auto) 0.77 K/uL (0.11-0.59); Monocytes % (auto) 10.1 %; Neutrophils # (auto) 5.34 K/uL (1.4-6.5); Platelet Count 213 K/uL (130-400); RDW Coefficient of Variation 13.6 % (11.5-14.5); RDW Standard Deviation 48.5 fL (36.4-46.3); Red Blood Count 3.72 M/uL (4.2-5.4); White Blood Count 7.62 K/uL (4.8-10.8)
[2021-02-17 06:54] LABS: BUN Creatinine Ratio 22.1 (10-20); Calcium 9.5 mg/dl (8.5-10.1); Creatinine Clr Calc Pharmacy 29.5 ml/min; Est GFR (African American) 30.4 ml/min; Est GFR (Non-African American) 26.2 ml/min; Potassium 3.6 mmol/L (3.5-5.1)
[2021-02-17] MEDS: ONDANSETRON INJ 2 MG/ML 2 ML VIAL IV PRN (07:34)
[2021-02-17] MEDS: hydrALAZINE TAB 50 MG TAB PO SCH ×3 (07:51→20:28)
[2021-02-17] MEDS: carvediloL 12.5 MG TAB PO SCH ×2 (07:52→20:28)
[2021-02-17] MEDS: amLODIPine BESYLATE 5 MG TAB PO SCH (07:52)
[2021-02-17] MEDS: cloNIDine HCL 0.1 MG TAB PO SCH ×3 (07:52→20:28)
[2021-02-17] MEDS ORDERED: Influenza Vaccine-High Dose (Fluzone-HD) PF 65+ 0.7 ML SYR IM ONE (08:00)
[2021-02-17] MEDS ORDERED: MECLIZINE HCL 25 MG TAB PO PRN (08:37)
--- NOTE | 2021-02-17 09:03 | Neurology Consultation ---
Date of Consultation February 17, 2021 Assessment & Plan (1) Acute severe vertigo: (2) Hypertension: (3) History of intracerebral hemorrhage without residual deficit: (4) Major depressive disorder: Patient has new onset over the last week or so of positional vertiginous feelings to the point where she cannot ambulate well she has nausea and some vomiting. On examination she has horizontal nystagmus at this patient had a history of right parieto-occipital intracerebral hemorrhage in November 2020 likely from hypertension. The hemorrhage has resolved and she has perhaps some slight left upper extremity weakness as a leftover to this. She still has hypertension and this may be driving the vertiginous feelings. I am not convinced she has had a new stroke but this is likely inner ear in origin. She has a history of anxiety depression with her stable. Recommendations: 1. MRI of the brain contrast, to evaluate for stroke. 2. Control blood pressure as you are doing, aiming for a mean arterial pressure of approximately 100 3. Use meclizine as needed for vertigo. If this does not help we could give low doses of diazepam. 4. Physical therapy consultation, evaluate her vetigo and gait - treat Overall, I spent a total of 60 minutes with this case including review of records, review of CT films, direct evaluation of the patient at bedside, and discussion of the case with the patient and RN at bedside and Dr. Mas including differential diagnosis and treatment options. History of Present Illness Reason for Consultation: Patient is a 76-year-old, who I was asked to see at the request of Dr. Torres, for neurologic consultation regarding acute dizziness. Requesting Physician: Dr. He Attending Physician: Malik Mas MD History of Present Illness Patient has a history of significant anxiety and depression followed by [place] on Abilify, BuSpar, and Zoloft. She feels that her mood although somewhat down is fairly stable. She has a history of hypertension, chronic kidney disease, but no history of heart disease or diabetes. On December 18, she came to the emergency room with headache and a weakness in general. Blood pressure was 197/[address] scan of the head showed a rather large right posterior parietal/occipital hemorrhage with some surrounding edema. She was transferred to [facility] and stayed 5 to 6 days. No neurosurgical procedure was warranted and the hemorrhage resolved with blood pressure control. Follow-up CT scan January 25 showed resolution of the hemorrhage and edema. Over the last 10 days, she has noted some intermittent dizziness which has progressed to daily over the last 5 days. This dizziness is like a spinning of the room in a random direction increased by stress, moving her head, or changing position with her body. Gives her nausea and she rarely vomited at home (twic e). She does not notice any new weakness, numbness, or headache. Her balance is off with this and she is very cautious. She does not fall. she has been incontinent at night but not during the day. She arrived to the emergency room February 16 at 1626, with a temperature 36.9, pulse 78 and regular, respiratory rate 27, blood pressure 193/100, and O2 saturation 95%. Her neurologic examination was unremarkable and she had no obvious mental status changes. CBC was unremarkable and she had an elevated BUN and creatinine of 46 and 2.2. Otherwise CHEM profile was unremarkable. Urinalysis had increased cells and culture shows gram-negative bacilli. She had an E. coli urinary tract infection January 25. CT scan of the head showed no bleed and the old right posterior parietal encephalomalacia from her stroke in November. The patient still feels somewhat vertiginous with moving and some nausea. She denies headache or pain. Blood pressure currently is 219/75 and she is afebrile. Allergies Allergy/AdvReac Type Severity Reaction Status Date / Time fentanyl Allergy Intermediate extreme Verified 01/04/21 11:47 confusion/hallucination amoxicillin Allergy Mild Hives Verified 01/04/21 11:47 Penicillins Allergy Mild RASH TO Verified 01/04/21 11:47 AMOXIL, NO RESP PROBLEMS Home Medications Medication Instructions Recorded Confirmed Type alprazolam 1 mg tablet 1 mg PO BID 07/19/18 02/16/21 History montelukast 10 mg tablet 10 mg PO HS #90 tab 02/17/19 02/16/21 Rx zolpidem 10 mg tablet 10 mg PO HS 07/14/19 02/16/21 History calcitriol 0.25 mcg capsule 0.25 mcg PO QAM #90 cap 08/16/20 02/16/21 Rx cholecalciferol (vitamin D3) 25 50 mcg PO QAM #90 tab 09/02/20 02/16/21 Rx mcg (1,000 unit) tablet (Vitamin D3) amlodipine 10 mg tablet 10 mg PO DAILY 01/05/21 02/16/21 History aripiprazole 10 mg tablet (Abilify) 10 mg PO .QHS tab 01/05/21 02/16/21 History buspirone 5 mg tablet 5 mg PO TID 01/05/21 02/16/21 History carvedilol 12.5 mg tablet (Coreg) 12.5 mg PO BID 01/05/21 02/16/21 History clonidine HCl 0.1 mg tablet 0.1 mg SUBLINGUAL TID tab 01/05/21 02/16/21 History hydralazine 50 mg tablet 50 mg PO TID 01/05/21 02/16/21 History sertraline 100 mg tablet 100 mg PO DAILY 02/16/21 02/16/21 History Patient History Medical History Anxiety Chronic dyspnea Chronic kidney disease, stage 4 (severe) Cough GERD (gastroesophageal reflux disease) HTN (hypertension) Irregular heart beats follows with Dr. Orozco Major depressive disorder Morbid obesity Osteoarthritis Wheezing intermittent---reason for inhalers Surgical History History of bilateral tubal ligation History of cholecystectomy History of colonoscopy History of dilatation and curettage History of esophagogastroduodenoscopy (EGD) History of right knee joint replacement History of tooth extraction History of total left knee replacement (TKR) Family History Mother , age 82 of complications of diabetes Heart disease Stroke Family history of diabetes mellitus Grandmother (Maternal) Family history of diabetes mellitus Father , age 80 of liver issues Liver disease Other No family history of adverse response to anesthesia Social History Smoking Status: Never smoker Second Hand Exposure: No; Hx Alcohol Use: No Hx Substance Use: No Preferred Language: Yoruba Communication Ability: Effective Pressure Welder Required: No Beliefs That Will Affect Care: None Current Living Situation: Spouse current occupational status: retired 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 Safe at Home: Yes Assistive Devices: Glasses Review of Systems Constitutional: no fever, no fatigue and no weakness Eyes: no diplopia, no eye pain and no worsening vision Ear, Nose, Mouth, Throat: + dizziness; no ear pain, no tinnitus, no hearing loss, no hoarseness and no dysphagia Respiratory: no cough and no dyspnea Cardiovascular: no chest pain, no palpitations and no lightheadedness Gastrointestinal: no abdominal pain, no nausea and no vomiting Genitourinary: no dysuria, no urinary frequency and no urinary incontinence Musculoskeletal: no back pain, no neck pain, no radicular pain, no joint pain and no myalgia Integumentary: no rash and no lesions Neurologic: + gait abnormality; no localized weakness, no generalized weakness, no tingling, no numbness, no tremor(s), no abnormal movements, no headache(s), no abnormal speech, no confusion and no memory loss Psychiatric: + depression and + anxiety; no irritability, no difficulty concentrating, no confusion and no hallucinations Endocrine: no fatigue and no flushing Hematologic / Lymphatic: no easy bleeding and no easy bruising Allergy / Immunological: no urticaria and no problem reported Exam (Neuro) Physical Exam: The patient is left-handed. The patient is awake, alert, and attentive. Speech is normal without any aphasia or dysarthria. Mentation and thought processes are intact, with full orientation and normal fund of knowledge. Mood and affect are normal and appropriate. Appearance and grooming are normal. Short and long-term memory are intact to conversation The discs are sharp with positive venous pulsations bilaterally. There are no exudates, hemorrhages, or blood vessel changes seen. Pupils are 4 mm bilaterally and reactive to light. Extraocular eye muscles are intact, with some nystagmus to the left. Visual acuity and visual min seem normal grossly to confrontation. There are no deficits to sensation in the face in all 3 distributions of the fifth cranial nerve bilaterally. Corneal reflexes are positive bilaterally. Facial strength and symmetry was normal bilaterally. Hearing seems intact grossly to voice and finger rub bilaterally. Palate moves well without asymmetry. There is normal sternocleidomastoid and trapezius strength bilaterally. Tongue is midline with good strength bilaterally. Neck has a full range of motion without discomfort. There are no cervical bruits bilaterally. There are no cranial or ocular bruits. Heart is without murmur. There is a regular rhythm and rate. Cervical, thoracic, and lumbar spine are nontender to palpation. Gait was not tested but stands sitting up in bed created increased vertiginous feelings and a little more nystagmus to the left. With outstretched arms there is no drift. There are no resting, postural, or action tremors. There is no ataxia with finger to nose testing. There is good facility in the hands. No other abnormal involuntary movements are noted. Motor strength is 5/5 diffusely in the right upper extremity, including deltoids, biceps, triceps, brachioradialis, wrist flexors and extensors, wooden shade hardware installer, and intrinsic hand muscles. Left upper extremity was 4+/5 diffusely. Motor strength is 5/5 diffusely in the legs bilaterally including hip flexors, quadriceps, hamstrings, gastrocnemius, tibialis anterior, tibialis posterior, and Peroneii muscles bilaterally. Toe extensors are normal and there is good bulk in the extensor digitorum brevis muscles bilaterally. The limbs have good tone without rigidity or spasticity. There is no atrophy noted in the muscles. Muscle bulk is normal, there is no tenderness to palpation, no myotonia to percussion, and no fasciculations seen. Sensory examination is intact to touch and pin throughout all 4 limbs diffusely. Reflexes are 1/4 in the biceps, triceps, brachioradialis, quadriceps, and Achilles tendons bilaterally. Toes are downgoing with plantar stimulation bilaterally. Peripheral pulses are present and of normal quality distally in all 4 limbs. There is no peripheral edema noted in the limbs. Results & Data ([facility]) Vital Signs (Past 12 Hours) Vital Signs Pulse Pulse Resp BP BP BP Pulse Ox 02/17/21 07:51 219/75 H 02/17/21 07:37 70 25 H 181/91 H 94 02/17/21 05:18 63 20 163/61 H 94 02/17/21 01:20 63 16 154/76 H 95 02/17/21 00:11 67 16 196/69 H 02/16/21 23:26 77 221/75 H 02/16/21 23:00 78 221/75 H 95 02/16/21 22:42 78 209/77 H 96 02/16/21 21:30 83 170/66 H 95 02/16/21 21:00 82 162/66 H 95 PG Care Time/CCT Total # of Minutes Spent Total Time Spent with Patient: Total time spent is greater than 50% in coordination of care (as documented) at patient's floor/unit and/or counseling patient: Coding Level of Care Code 19454 Initial Inpt Care Lvl 3 Diagnoses Acute severe vertigo R42 Major depressive disorder F32.9 Hypertension I10 History of intracerebral hemorrhage without residual deficit Z86.79
--- NOTE | 2021-02-17 09:59 | Hospitalist Progress Note ---
Date of Service February 17, 2021 Assessment & Plan (1) Lightheadedness: Plan: Lightheadedness suspect 2/2 BPPV versus labyrinthitis -Differential includes polypharmacy side effect, dehydration in setting of decreased intake, BPPV -Lower suspicion for acute neurologic process given CTH neg Neuro exam with some jerk nystagmus, reproduction of symptoms with head turning Neuro consulted, appreciate recommendations. MRIbrain noncontrast pending Hypertension control target MAP 100. Patient was hypertensive this morning, but had not received any meds. Blood pressure improved to 128/58 following morning meds Meclizine 25 mg p.o. trial for vertigo, may consider diazepam if ineffective PT/OT for both strength eval and Quique maneuver if able (2) History of CVA (cerebrovascular accident): Plan: History of recent CVA -MRI per 11/2020 [facility] records- intraparenchymal right posterior parieto- occipital hematoma with edema, chronic infarct of left parietal lobe -Admission CTH- right posterior parietal infarct consistent with prior hemorrhage, no new bleed -Not on any antiplatelet therapy -Low suspicion for acute ischemic stroke given normal neurologic exam and clinical history -Serial neuro exams q4h -Neurology recommendations as above MRI repeat pending as above (3) ELLY (acute kidney injury): Plan: ELLY on CKD -Baseline BUN low 30s, Cr 1.7-1.9 -Admission BUN 46, Cr 2.20 -Creatinine returned to 1.8, within normal baseline Fluids discontinued BMP daily (4) CKD (chronic kidney disease), stage IV: Plan: See above (5) Hypertension: Plan: HTN -Continue home carvedilol BID, clonidine TID, hydralazine TID, amlodipine -SBP > 200 in ED likely due to missing home clonidine and Coreg dose Following administration of routine morning meds, patient blood pressure decreased to 128/58 -Continue to monitor (6) UTI (urinary tract infection): Plan: UTI -01/25 [facility] ED visit- UTI diagnosed, discharged on antibiotics -UA- nitrites, leukocyte esterase, WBCs, bacteria positive -Patient denied urinary symptoms initially on admission and did not have leukocytosis. On reassessment patient does endorse intermittent nighttime incontinence, which is not normal for her. She denies dysuria. -Given infected appearing UA, UC greater than 100 K GNB, and patient with new nighttime incontinence without stress incontinence will treat as UTI Prior culture positive for pansensitive E. coli Patient with amoxicillin allergy, no respiratory involvement. Patient tolerated Rocephin 01/25/2021 without reaction. Rocephin 1 g daily Plan: FENGI: Low-salt Code status: Full DVT ppx: SCDs Isolation: None Dispo: Med/Surg Admission and Anticipated Discharge Date Admission Date: February 16, 2021 Antonio Alvarez is seen at the bedside. She reports her dizziness began 7 to 10 days ago, and has had a sensation of the room spinning and random directions. Her symptoms are worsened with head movement, stress, and standing. She does not feel they have completely resolved at all in the last week and a half. She has had nausea with the symptoms, and has vomited nonbloody/nonbilious emesis with her dizziness prior to admission. She feels she has been going slow so as to not lose her balance, and has not had falls. She denies congestion/ear pain. He has a history of hemorrhagic CVA, repeat CT scan shows evidence of prior right posterior parietal hemorrhage without acute bleed. Review of Systems Review of Systems: All systems reviewed & are unremarkable except as noted in Subjective Physical Exam Physical Exam: General: A&Ox3. NAD. Cooperative. HEENT: Atraumatic, normocephalic. Left gaze and head jerk produces transient horizontal nystagmus which worsens dizziness. Visual acuity and hearing grossly intact. Pulm: CTAB A&P. -wheezes, -rales, -rhonchi. Symmetrical chest rise. No increase work of breathing. No respiratory distress. Cardiac: RRR, -mrg. Radial pulses intact and symmetrical. Abdominal: Nontender, nondistended, soft. BS present. Extremities: Warm, dry. Left animal skinner strength 4/5, right animal skinner strength 5/5. Sensation to soft touch temperature intact in hands and feet bilaterally without asymmetry or deficit. Results & Data Results & Data ([facility]) Vital Signs (Past 12 Hours) Vital Signs Pulse Pulse Resp BP BP BP Pulse Ox 02/17/21 08:56 128/58 L 02/17/21 07:51 219/75 H 02/17/21 07:37 70 25 H 181/91 H 94 02/17/21 05:18 63 20 163/61 H 94 02/17/21 01:20 63 16 154/76 H 95 02/17/21 00:11 67 16 196/69 H 02/16/21 23:26 77 221/75 H 02/16/21 23:00 78 221/75 H 95 02/16/21 22:42 78 209/77 H 96 PG Care Time/CCT Total # of Minutes Spent Total Time Spent with Patient: Total time spent is greater than 50% in coordination of care (as documented) at patient's floor/unit and/or counseling patient: Coding Level of Care Code 79949 Subseq Hosp Care Lvl 3 Diagnoses Lightheadedness R42 History of CVA (cerebrovascular accident) Z86.73 ELLY (acute kidney injury) N17.9 CKD (chronic kidney disease), stage IV N18.4 Hypertension I10 UTI (urinary tract infection) N39.0
[2021-02-17] MEDS ORDERED: diazePAM 2 MG TABLET PO ONE (10:48)
[2021-02-17] MEDS: cefTRIAXone SODIUM 2,000 MG in DEXTROSE 5% 50 ML IV SCH (11:55)
--- NOTE | 2021-02-17 18:17 | Electrocardiogram Report ---
Test Reason : Blood Pressure : / mmHG Vent. Rate : 079 BPM Atrial Rate : 079 BPM P-R Int : 174 ms QRS Dur : 092 ms QT Int : 376 ms P-R-T Axes : 065 001 020 degrees QTc Int : 431 ms Poor data quality, interpretation may be adversely affected Normal sinus rhythm Left ventricular hypertrophy with repolarization abnormality Abnormal ECG When compared with ECG of 25-JAN-2021 16:54, Premature ventricular complexes are no longer Present Confirmed by Brandon Castaneda ([id number]) on 02/17/2021 6:17:23 PM Referred By: REFERRED SELF Confirmed By:Brandon Castaneda
--- NOTE | 2021-02-17 19:46 | Billing Data ---
Date of Service February 17, 2021 Coding Level of Care Code 96421 Initial Inpt Care Lvl 3
[2021-02-18] MEDS ORDERED: LORazepam 0.5 MG TAB PO STA (04:44)
[2021-02-18 06:37] LABS: Basophils # (auto) 0.01 K/uL (0-0.2); Basophils % (auto) 0.1 %; Eosinophils % (auto) 2.5 %; Immature Granulocytes # (auto) 0.02 K/uL (0.00-0.02); Immature Granulocytes % (auto) 0.2 %; Lymphocytes # (auto) 1.39 K/uL (1.2-3.4); Lymphocytes % (auto) 17.1 %; Mean Corpuscular Hemoglobin 31.8 pg (25-34); Mean Corpuscular Hgb Conc 32.4 g/dL (32-36); Mean Corpuscular Volume 98.1 fL (80-100); Mean Platelet Volume 9.8 fL (7.4-10.4); Monocytes # (auto) 0.84 K/uL (0.11-0.59); Monocytes % (auto) 10.3 %; Neutrophils # (auto) 5.66 K/uL (1.4-6.5); Neutrophils % (auto) 69.8 %; Platelet Count 210 K/uL (130-400); RDW Coefficient of Variation 13.8 % (11.5-14.5); RDW Standard Deviation 49.3 fL (36.4-46.3); Red Blood Count 3.77 M/uL (4.2-5.4); White Blood Count 8.12 K/uL (4.8-10.8)
[2021-02-18 07:18] LABS: Est GFR (Non-African American) 26.7 ml/min; Potassium 3.8 mmol/L (3.5-5.1)
--- NOTE | 2021-02-18 09:01 | Neurology Progress Note ---
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 On examination February 17, she had horizontal nystagmus, but I do not note any nice stacked miss today. This patient had a history of right parieto-occipital intracerebral hemorrhage in November 2020 likely from hypertension. The hemorrhage has resolved and she has perhaps some slight left upper extremity weakness as a leftover to this. She still has hypertension and this may be driving the vertiginous feelings. I am not convinced she has had a new stroke but this is likely inner ear in origin. She has a history of anxiety depression with her stable. Recommendations: 1. MRI of the brain contrast, to evaluate for stroke. 2. Control blood pressure as you are doing, aiming for a mean arterial pressure of approximately 100 3. Use meclizine as needed for vertigo. If this does not help we could give low doses of diazepam. 4. Physical therapy consultation, evaluate her vetigo and gait - treat Overall, I spent a total of 35 minutes with this case including review of records, review of CT films, direct evaluation of the patient at bedside, and discussion of the case with the patient and RN at bedside and Dr. Mas including differential diagnosis and treatment options. Admission and Anticipated Discharge Date Admission Date: February 16, 2021 Subjective The patient may be a little bit better with her vertigo and claims that "drinking juice and having sugar" is making her better. When she moves her head from side to side she still gets vertiginous feelings however. She has no pain or headache. She feels "shaky" today Blood pressure is 192/75. CBC shows no significant abnormalities Chem profile shows mildly elevated BUN and creatinine. Results & Data ([facility]) Vital Signs (Past 12 Hours) Vital Signs Temp Pulse Pulse Resp BP Pulse Ox 02/18/21 08:00 36.7 C 84 18 192/75 H 93 02/18/21 04:38 36.8 C 77 20 152/72 H 92 02/17/21 22:35 36.5 C 75 18 176/71 H 92 02/17/21 22:25 70 Exam (Neuro) Physical Exam: she is awake and alert. Speech is without aphasia or dysarthria. Mood is normal and affect is appropriate. Thought processes are intact to conversation. Extraocular eye muscles are intact without nystagmus. Turning her head from side to side makes her vertiginous but I do not notice any nystagmus. Coordination is normal in the arms but she does have some action tremor. Strength seems symmetrical in the limbs. There is no facial droop. PG Care Time/CCT Total # of Minutes Spent Total Time Spent with Patient: Total time spent is greater than 50% in coordination of care (as documented) at patient's floor/unit and/or counseling patient: Coding Level of Care Code 19017 Subseq Hosp Care Lvl 3 Diagnoses Acute severe vertigo R42 Hypertension I10 History of intracerebral hemorrhage without residual deficit Z86.79 Major depressive disorder F32.9 Time Spent (min) 35
[2021-02-18] MEDS: ALPRAZolam 0.5 MG TABLET PO SCH ×2 (09:43→20:15)
[2021-02-18] MEDS: cefTRIAXone SODIUM 2,000 MG in DEXTROSE 5% 50 ML IV SCH (09:43)
[2021-02-18] MEDS: cloNIDine HCL 0.1 MG TAB PO SCH ×3 (09:44→20:21)
[2021-02-18] MEDS: carvediloL 12.5 MG TAB PO SCH ×2 (09:44→20:12)
[2021-02-18] MEDS: hydrALAZINE TAB 50 MG TAB PO SCH ×3 (09:44→20:13)
[2021-02-18] MEDS: amLODIPine BESYLATE 5 MG TAB PO SCH (09:44)
[2021-02-18] MEDS ORDERED: LORazepam 0.5 MG/1 ML VIAL IV PRN (13:31)
[2021-02-18] MEDS: ACETAMINOPHEN 325 MG TAB PO PRN (14:22)
--- NOTE | 2021-02-18 22:18 | Hospitalist Progress Note ---
Date of Service February 18, 2021 Assessment & Plan (1) Lightheadedness: Plan: Lightheadedness -Differential includes polypharmacy side effect, dehydration in setting of decreased intake, BPPV -Lower suspicion for acute neurologic process given CTH neg, benign neuro exam -Clear CBC, unremarkable BMP, normal EKG -Continue IVF NSS 80 ml/hr, encourage PO intake -Zofran PRN -PT/OT ordered -Closely monitor for development of neurologic symptoms/deficits -Anticipated d/c to SNF/rehab -Improved on 02/18, awaiting MRI. Appreciate input from neuro. History of recent CVA -MRI per 11/2020 [facility] records- intraparenchymal right posterior parieto- occipital hematoma with edema, chronic infarct of left parietal lobe -Admission CTH- right posterior parietal infarct consistent with prior hemorrhage, no new bleed -Not on any antiplatelet therapy -Low suspicion for acute ischemic stroke given normal neurologic exam and clinical history -Serial neuro exams q4h -Neurology consulted ELLY on CKD -Baseline BUN low 30s, Cr 1.7-1.9 -Admission BUN 46, Cr 2.20 -Likely due to decreased fluid intake in setting of CKD -Continue NSS 80 ml/hr -Trend BMP HTN -Continue home carvedilol BID, clonidine TID, hydralazine TID, amlodipine -SBP > 200 in ED likely due to missing home clonidine and Coreg dose -Continue to monitor UTI -01/25 [facility] ED visit- UTI diagnosed, discharged on antibiotics -UA- nitrites, leukocyte esterase, WBCs, bacteria positive -No urinary symptoms, normal WBC -Monitor for dysuria, initiate abx if febrile or symptomatic -Trend CBC FENGI: Low-salt Code status: Full DVT ppx: SCDs Isolation: None Dispo: Med/Surg (2) History of CVA (cerebrovascular accident): (3) ELLY (acute kidney injury): (4) CKD (chronic kidney disease), stage IV: Admission and Anticipated Discharge Date Admission Date: February 16, 2021 Subjective Patient reports no new symptoms. Her dizziness has improved Review of Systems Review of Systems: All systems reviewed & are unremarkable except as noted in HPI & below Physical Exam Physical Exam: General: A&Ox3. NAD. Cooperative. HEENT: Atraumatic, normocephalic. Left gaze and head jerk produces transient horizontal nystagmus which worsens dizziness. Visual acuity and hearing grossly intact. Pulm: CTAB A&P. -wheezes, -rales, -rhonchi. Symmetrical chest rise. No increase work of breathing. No respiratory distress. Cardiac: RRR, -mrg. Radial pulses intact and symmetrical. Abdominal: Nontender, nondistended, soft. BS present. Extremities: Warm, dry. Left synchronous motor assembler strength 4/5, right synchronous motor assembler strength 5/5. Sensation to soft touch temperature intact in hands and feet bilaterally without asymmetry or deficit. Results & Data Results & Data ([facility]) Vital Signs (Past 12 Hours) Vital Signs Temp Pulse Pulse Resp BP Pulse Ox 02/18/21 19:18 36.7 C 86 18 149/75 H 94 02/18/21 16:00 36.8 C 76 18 142/70 H 95 02/18/21 15:00 81 02/18/21 14:26 36.7 C 79 14 175/77 H 96 PG Care Time/CCT Total # of Minutes Spent Total Time Spent with Patient: Total time spent is greater than 50% in coordination of care (as documented) at patient's floor/unit and/or counseling patient: Coding Level of Care Code 15878 Subseq Hosp Care Lvl 2 Diagnoses Lightheadedness R42 History of CVA (cerebrovascular accident) Z86.73 ELLY (acute kidney injury) N17.9 CKD (chronic kidney disease), stage IV N18.4
[2021-02-18] MEDS: ZOLPIDEM TARTRATE 10 MG TAB PO PRN (22:19)
[2021-02-19] MEDS: ALPRAZolam 0.5 MG TABLET PO SCH ×2 (07:58→20:29)
[2021-02-19] MEDS: amLODIPine BESYLATE 5 MG TAB PO SCH (09:43)
[2021-02-19] MEDS: cloNIDine HCL 0.1 MG TAB PO SCH ×3 (09:43→20:29)
[2021-02-19] MEDS: carvediloL 12.5 MG TAB PO SCH ×2 (09:43→20:29)
[2021-02-19] MEDS: hydrALAZINE TAB 50 MG TAB PO SCH ×3 (09:43→20:29)
[2021-02-19] MEDS: cefTRIAXone SODIUM 2,000 MG in DEXTROSE 5% 50 ML IV SCH (09:47)
[2021-02-19] MEDS ORDERED: MICONAZOLE NITRATE POWDER 43 GM EXT PRN (12:13)
--- NOTE | 2021-02-19 23:13 | Hospitalist Progress Note ---
Date of Service February 19, 2021 Assessment & Plan (1) Lightheadedness: Plan: Lightheadedness -Differential includes polypharmacy side effect, dehydration in setting of decreased intake, BPPV -Lower suspicion for acute neurologic process given CTH neg, benign neuro exam -Clear CBC, unremarkable BMP, normal EKG -Continue IVF NSS 80 ml/hr, encourage PO intake -Zofran PRN -PT/OT ordered -Closely monitor for development of neurologic symptoms/deficits -Anticipated d/c to SNF/rehab -Improved on 02/19, awaiting MRI. (MRI should not hold discharge if not done inpatient, can be deferred in the outpatient setting) Acute stroke appears less likely. Appreciate input from neuro. Awaiting placement. History of recent CVA -MRI per 11/2020 [facility] records- intraparenchymal right posterior parieto- occipital hematoma with edema, chronic infarct of left parietal lobe -Admission CTH- right posterior parietal infarct consistent with prior hemorrhage, no new bleed -Not on any antiplatelet therapy -Low suspicion for acute ischemic stroke given normal neurologic exam and clinical history -Serial neuro exams q4h -Neurology consulted ELLY on CKD -Baseline BUN low 30s, Cr 1.7-1.9 -Admission BUN 46, Cr 2.20 -Likely due to decreased fluid intake in setting of CKD -Continue NSS 80 ml/hr -Trend BMP HTN -Continue home carvedilol BID, clonidine TID, hydralazine TID, amlodipine -SBP > 200 in ED likely due to missing home clonidine and Coreg dose -Continue to monitor UTI -01/25 [facility] ED visit- UTI diagnosed, discharged on antibiotics -UA- nitrites, leukocyte esterase, WBCs, bacteria positive -No urinary symptoms, normal WBC -Monitor for dysuria, initiate abx if febrile or symptomatic -Trend CBC FENGI: Low-salt Code status: Full DVT ppx: SCDs Isolation: None Dispo: Med/Surg (2) History of CVA (cerebrovascular accident): (3) ELLY (acute kidney injury): (4) CKD (chronic kidney disease), stage IV: Admission and Anticipated Discharge Date Admission Date: February 16, 2021 Subjective Patient reports that her dizziness has improved. Review of Systems Review of Systems: All systems reviewed & are unremarkable except as noted in HPI & below Physical Exam Physical Exam: General: A&Ox3. NAD. Cooperative. HEENT: Atraumatic, normocephalic. Left gaze and head jerk produces transient horizontal nystagmus which worsens dizziness. Visual acuity and hearing grossly intact. Pulm: CTAB A&P. -wheezes, -rales, -rhonchi. Symmetrical chest rise. No increase work of breathing. No respiratory distress. Cardiac: RRR, -mrg. Radial pulses intact and symmetrical. Abdominal: Nontender, nondistended, soft. BS present. Extremities: Warm, dry. Left manager sign strength 4/5, right manager sign strength 5/5. Sensation to soft touch temperature intact in hands and feet bilaterally without asymmetry or deficit. Results & Data Results & Data ([facility]) Vital Signs (Past 12 Hours) Vital Signs Temp Pulse Pulse Resp BP Pulse Ox 02/19/21 19:37 36.3 C L 84 16 138/82 96 02/19/21 15:49 36.5 C 71 18 151/74 H 94 02/19/21 15:00 67 02/19/21 12:20 36.9 C 75 20 147/54 H 97 PG Care Time/CCT Total # of Minutes Spent Total Time Spent with Patient: Total time spent is greater than 50% in coordination of care (as documented) at patient's floor/unit and/or counseling patient: Coding Level of Care Code 72491 Subseq Hosp Care Lvl 2 Diagnoses Lightheadedness R42 History of CVA (cerebrovascular accident) Z86.73 ELLY (acute kidney injury) N17.9 CKD (chronic kidney disease), stage IV N18.4
[2021-02-20] MEDS: amLODIPine BESYLATE 5 MG TAB PO SCH (07:53)
[2021-02-20] MEDS: hydrALAZINE TAB 50 MG TAB PO SCH ×3 (07:54→20:12)
[2021-02-20] MEDS: carvediloL 12.5 MG TAB PO SCH ×2 (07:54→20:12)
[2021-02-20] MEDS: cloNIDine HCL 0.1 MG TAB PO SCH ×3 (07:54→20:12)
[2021-02-20] MEDS: ALPRAZolam 0.5 MG TABLET PO SCH ×2 (07:58→20:11)
--- NOTE | 2021-02-20 08:04 | Neurology Progress Note ---
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 On examination February 17, she had horizontal nystagmus, but I do not note any nystagmus with sitting up, head turning, or eye turning. This patient had a history of right parieto-occipital intracerebral hemorrhage in November 2020, likely from hypertension. The hemorrhage has resolved and she has perhaps some slight left upper extremity weakness as a leftover to this. She still has hypertension and this may be driving the vertiginous feelings. I am not convinced she has had a new stroke, and this is likely inner ear in origin. She has a history of anxiety and depression Recommendations: 1. MRI of the brain, without contrast, to evaluate for stroke. 2. Control blood pressure as you are doing, aiming for a mean arterial pressure of approximately 100 3. Use meclizine as needed for vertigo. If this does not help we could give low doses of diazepam. 4. Physical therapy consultation, evaluate her vertigo and gait - treat Overall, I spent a total of 35 minutes with this case including review of records, direct evaluation of the patient at bedside, and discussion of the case with the patient and RN at bedside and Dr. Mas including differential diagnosis and treatment options. Admission and Anticipated Discharge Date Admission Date: February 16, 2021 Subjective Patient has no pain or headache. She still has a little bit of dizziness with movement but not as bad as yesterday. She is sleepy this morning. Nursing reports no new events overnight. Blood pressure is 169/70. Results & Data ([facility]) Vital Signs (Past 12 Hours) Vital Signs Temp Pulse Pulse Resp BP Pulse Ox 02/20/21 03:03 36.5 C 79 16 169/79 H 96 02/20/21 00:00 68 02/19/21 23:21 36.6 C 83 16 178/82 H 95 Exam (Neuro) Physical Exam: She is awake and alert. Speech is sparse but without aphasia or dysarthria. She seems depressed. extraocular eye muscles are intact without nystagmus. She can move her head side to side without increased dizziness or nystagmus. Sitting up does not increase dizziness or produce nystagmus either. Coordination is normal in the arms without ataxia. There is left greater than right action tremor. Strength is symmetrical 4 limbs. PG Care Time/CCT Total # of Minutes Spent Total Time Spent with Patient: Total time spent is greater than 50% in coordination of care (as documented) at patient's floor/unit and/or counseling patient: Coding Level of Care Code 76120 Subseq Hosp Care Lvl 3 Diagnoses Acute severe vertigo R42 Hypertension I10 History of intracerebral hemorrhage without residual deficit Z86.79 Major depressive disorder F32.9 Time Spent (min) 35
[2021-02-20] MEDS: cefTRIAXone SODIUM 2,000 MG in DEXTROSE 5% 50 ML IV SCH (12:52)
--- NOTE | 2021-02-20 13:03 | Hospitalist Progress Note ---
Date of Service February 20, 2021 Assessment & Plan (1) Lightheadedness: Plan: Lightheadedness -Differential includes polypharmacy side effect, dehydration in setting of decreased intake, BPPV, labarynthitis -Lower suspicion for acute neurologic process given CTH neg, benign neuro exam -Clear CBC, unremarkable BMP, normal EKG -Unremarkable BMP on admission PT/OT recommend rehab. Referral placement pending If continue blood pressure control, reasonable control today Meclizine as needed vertigo - Sx greatly improved today, nearing but not completely at baseline (2) History of CVA (cerebrovascular accident): Plan: History of recent CVA -[facility]- intraparenchymal right posterior parieto- occipital hematoma with edema, chronic infarct of left parietal lobe -Admission CTH- right posterior parietal infarct consistent with prior hemorrhage, no new bleed -Not on any antiplatelet therapy -Low suspicion for acute ischemic stroke given normal neurologic exam and clini lanny history -Serial neuro exams q4h -Neurology consulted. MRI pending, continued HTN control. Pt clinically improving. (3) ELLY (acute kidney injury): Plan: ELLY on CKD -Baseline BUN low 30s, Cr 1.7-1.9 -Admission BUN 46, Cr 2.20 -Likely due to decreased fluid intake in setting of CKD -Improved with arnulfo fluids - Downtrended, Remains at baseline (4) CKD (chronic kidney disease), stage IV: (5) HTN (hypertension): Plan: HTN -Continue home carvedilol BID, clonidine TID, hydralazine TID, amlodipine -SBP > 200 in ED likely due to missing home clonidine and Coreg dose -Continue to monitor (6) UTI (urinary tract infection): Plan: UTI -01/25 [facility] ED visit- UTI diagnosed, discharged on antibiotics -UA- nitrites, leukocyte esterase, WBCs, bacteria positive -Patient had endorsed new nighttime incontinence, treated with Rocephin - UC pansensitive - Completed 5 days abx, discontinue - Sx resolved Plan: FENGI: Low-salt Code status: Full DVT ppx: SCDs Isolation: None Dispo: Med/Surg Admission and Anticipated Discharge Date Admission Date: February 16, 2021 Subjective Seen at bedside this morning. She reports she feels about 60% of her normal, but notes she was less than 10% of her normal when she came in. Overall feels "a lot better ". Was set up to bed by physical therapy today, reports she has not had dizziness/nausea this morning. Previously been concerned about tolerating MRI due to nausea, think she may be able to tolerate today. Denies vision change, weakness. Continues to feel weak. Denies chest pain, chest pressure, shortness of breath, difficulty breathing. Agreeable to rehab, aware and Review of Systems Review of Systems: All systems reviewed & are unremarkable except as noted in Subjective Physical Exam Physical Exam: General: A&Ox3. NAD. Cooperative. HEENT: Atraumatic, normocephalic. No nystagmus is appreciated visual acuity and hearing grossly intact. Pulm: CTAB A&P. -wheezes, -rales, -rhonchi. Symmetrical chest rise. No increase work of breathing. No respiratory distress. Cardiac: RRR, -mrg. Radial pulses intact and symmetrical. Abdominal: Nontender, nondistended, soft. BS present. Extremities: Warm, dry. Left pediatric speech language pathologist strength 4/5, right pediatric speech language pathologist strength 5/5. Sensation to soft touch temperature intact in hands and feet bilaterally without asymmetry or deficit. Results & Data Results & Data ([facility]) Vital Signs (Past 12 Hours) Vital Signs Temp Pulse Resp BP Pulse Ox 02/20/21 08:29 36.8 C 86 17 144/75 H 94 02/20/21 03:03 36.5 C 79 16 169/79 H 96 PG Care Time/CCT Total # of Minutes Spent Total Time Spent with Patient: Total time spent is greater than 50% in coordination of care (as documented) at patient's floor/unit and/or counseling patient: Coding Level of Care Code 87499 Subseq Hosp Care Lvl 2 Diagnoses Lightheadedness R42 History of CVA (cerebrovascular accident) Z86.73 ELLY (acute kidney injury) N17.9 CKD (chronic kidney disease), stage IV N18.4 HTN (hypertension) I10 UTI (urinary tract infection) N39.0
--- NOTE | 2021-02-20 14:41 | Magnetic Resonance Report ---
MRI OF THE BRAIN WITHOUT CONTRAST CLINICAL HISTORY: Dizziness, hx of intracerebral hemorrhage COMPARISON STUDY: MRI of the brain November 16, 2018. Head CT February 16, 2021. TECHNIQUE: Utilizing a 1.5 Yen magnet and dedicated coil, multiplanar, multiecho imaging of the bra in was performed without IV contrast. FINDINGS: There are no foci of restricted diffusion to suggest acute infarct. Apparent restricted dif fusion within the previously described right parietal subacute to chronic hematoma is artifactual. Th is focus has inherent T1 hyperintensity with a T2 hypointense rim consistent with hemosiderin deposit ion. There is adjacent T2 hyperintensity suggestive of encephalomalacia. No acute intracranial hemorr petra is present. Ventricular system is unremarkable. Basal cisterns are patent. There is an old periv entricular left frontal lobe infarct. This is unchanged since MRI of November 16, 2018. Flow-voids for the major intracranial vessels are present. Orbits are unremarkable on this unenhanced exam. Scattere d white matter T2 hyperintense foci suggest small vessel disease. IMPRESSION: 1. No acute intracranial findings. 2. Expected evolution of a subacute to chronic right parietal lobe intraparenchymal hematoma. No acut e intracranial hemorrhage. 3. Old periventricular infarct within the left frontal lobe which is unchanged since MRI of October. ACT 112: Negative or not required by law. Electronically signed by: Deshawn Joiner M.D. 02/20/2021 2:39 PM
[2021-02-20] MEDS: MELATONIN 3 MG TAB PO PRN (20:19)
--- NOTE | 2021-02-21 07:50 | Neurology Progress Note ---
Date of Service February 21, 2021 Assessment & Plan (1) Acute severe vertigo: (2) Hypertension: (3) History of intracerebral hemorrhage without residual deficit: (4) Major depressive disorder: Plan: Patient had new onset 1-2 weeks ago of positional vertiginous feelings to the point where she could not ambulate well, and had some nausea and some vomiting. On examination February 17, she had horizontal nystagmus, but I do not note any nystagmus with sitting up, head turning, or eye turning over the last few days. This patient had a history of right parieto-occipital intracerebral hemorrhage in November 2020, likely from hypertension. The hemorrhage has resolved and she has perhaps some slight left upper extremity weakness as a leftover to this. MRI of the brain showed no acute issues. Her history is consistent with an inner ear process. Her hypertension is improved. She has a history of anxiety and depression Recommendations: 1. Control blood pressure as you are doing, aiming for a mean arterial pressure of approximately 100 2. Use meclizine as needed for vertigo. 3. Physical therapy consultation, evaluate her vertigo and gait - treat 4. Please contact me if I can be of further assistance on this case otherwise I can follow as an outpatient Overall, I spent a total of 25 minutes with this case including review of records, Reviewed MRI and CT films, direct evaluation of the patient at bedside, and discussion of the case with the patient and RN at bedside and Dr. Mas including differential diagnosis and treatment options. Admission and Anticipated Discharge Date Admission Date: February 16, 2021 Subjective Patient feels that she is somewhat better with her dizziness. She still has some anxiety and is on Alprazolam. Blood pressure is 131/61. MRI of the brain showed no acute stroke. There was the expected evolution of her right parietal hemorrhage from December of 1999 reviewed these films. Results & Data ([facility]) Vital Signs (Past 12 Hours) Vital Signs Temp Pulse Pulse Resp BP Pulse Ox 02/21/21 05:07 36.7 C 87 18 131/61 92 02/21/21 00:25 64 02/20/21 23:52 36.8 C 73 123/66 92 Exam (Neuro) Physical Exam: She is awake and alert. Speech is without aphasia or dysarthria. Mood and affect seem normal appropriate. Extraocular muscles intact without obvious nystagmus. There is no facial droop. PG Care Time/CCT Total # of Minutes Spent Total Time Spent with Patient: Total time spent is greater than 50% in coordination of care (as documented) at patient's floor/unit and/or counseling patient: Coding Level of Care Code 96744 Subseq Hosp Care Lvl 2 Diagnoses Acute severe vertigo R42 Hypertension I10 History of intracerebral hemorrhage without residual deficit Z86.79 Major depressive disorder F32.9 Time Spent (min) 25
[2021-02-21] MEDS: ALPRAZolam 0.5 MG TABLET PO SCH ×2 (07:53→20:39)
[2021-02-21] MEDS: amLODIPine BESYLATE 5 MG TAB PO SCH (08:41)
[2021-02-21] MEDS: cloNIDine HCL 0.1 MG TAB PO SCH ×3 (08:42→20:39)
[2021-02-21] MEDS: hydrALAZINE TAB 50 MG TAB PO SCH ×3 (08:42→20:40)
[2021-02-21] MEDS: carvediloL 12.5 MG TAB PO SCH ×2 (08:42→20:39)
[2021-02-21] MEDS: cefTRIAXone SODIUM 2,000 MG in DEXTROSE 5% 50 ML IV SCH (11:23)
--- NOTE | 2021-02-21 12:21 | Hospitalist Progress Note ---
Date of Service February 21, 2021 Assessment & Plan (1) Lightheadedness: Plan: Lightheadedness, improved not yet resolved -Differential includes polypharmacy side effect, dehydration in setting of decreased intake, BPPV, labarynthitis -Lower suspicion for acute neurologic process given CTH neg, benign neuro exam -Clear CBC, unremarkable BMP, normal EKG -Unremarkable BMP on admission MRI without acute findings PT/OT recommend rehab. Referral placement pending. stable for discharge at this time when bed available If continue blood pressure control, reasonable control today Meclizine as needed vertigo - Sx greatly improved today, nearing but not completely at baseline (2) History of CVA (cerebrovascular accident): Plan: History of recent CVA -MRI per 11/2020 [facility] records- intraparenchymal right posterior parieto- occipital hematoma with edema, chronic infarct of left parietal lobe -Admission CTH- right posterior parietal infarct consistent with prior hem orrhage, no new bleed -Not on any antiplatelet therapy -Low suspicion for acute ischemic stroke given normal neurologic exam and clinical history -Serial neuro exams q4h -Neurology consulted. MRI does not show any acute changes. (3) ELLY (acute kidney injury): Plan: ELLY on CKD -Baseline BUN low 30s, Cr 1.7-1.9 -Admission BUN 46, Cr 2.20 -Likely due to decreased fluid intake in setting of CKD -Improved with arnulfo fluids - Downtrended, Remains at baseline (4) CKD (chronic kidney disease), stage IV: (5) HTN (hypertension): Plan: HTN -Continue home carvedilol BID, clonidine TID, hydralazine TID, amlodipine -SBP > 200 in ED likely due to missing home clonidine and Coreg dose -Continue to monitor (6) UTI (urinary tract infection): Plan: UTI -01/25 [facility] ED visit- UTI diagnosed, discharged on antibiotics -UA- nitrites, leukocyte esterase, WBCs, bacteria positive -Patient had endorsed new nighttime incontinence, treated with Rocephin - UC pansensitive - Completed 5 days abx, discontinue - Sx resolved Plan: FENGI: Low-salt Code status: Full DVT ppx: SCDs Isolation: None Dispo: Med/Surg Admission and Anticipated Discharge Date Admission Date: February 16, 2021 Subjective No dizziness this morning, feels fatigued but overall "not too bad "denies nausea, vomiting, diarrhea, constipation today. No hearing change. Feels ready for rehab, feels that she needs rehab as she has become chronically weak. Review of Systems Review of Systems: All systems reviewed & are unremarkable except as noted in Subjective Physical Exam Physical Exam: General: A&Ox3. NAD. Cooperative. HEENT: Atraumatic, normocephalic. No nystagmus is appreciated visual acuity and hearing grossly intact. Pulm: CTAB A&P. -wheezes, -rales, -rhonchi. Symmetrical chest rise. No increase work of breathing. No respiratory distress. Cardiac: RRR, -mrg. Radial pulses intact and symmetrical. Abdominal: Nontender, nondistended, soft. BS present. Extremities: Warm, dry. Telephone Operator Chief strength grossly intact, left slightly diminished compared to right. Sensation to soft touch temperature intact in hands and feet bilaterally without asymmetry or deficit. Results & Data Results & Data ([facility]) Vital Signs (Past 12 Hours) Vital Signs Temp Pulse Pulse Resp BP BP Pulse Ox 02/21/21 11:22 36.4 C L 65 18 138/76 94 02/21/21 10:00 71 02/21/21 08:00 36.6 C 76 18 165/68 H 93 02/21/21 05:07 36.7 C 87 18 131/61 92 02/21/21 00:25 64 PG Care Time/CCT Total # of Minutes Spent Total Time Spent with Patient: Total time spent is greater than 50% in coordination of care (as documented) at patient's floor/unit and/or counseling patient: Coding Level of Care Code 00328 Subseq Hosp Care Lvl 1 Diagnoses Lightheadedness R42 History of CVA (cerebrovascular accident) Z86.73 ELLY (acute kidney injury) N17.9 CKD (chronic kidney disease), stage IV N18.4 HTN (hypertension) I10 UTI (urinary tract infection) N39.0
[2021-02-21] MEDS: MECLIZINE HCL 25 MG TAB PO PRN (21:19)
[2021-02-21] MEDS: ZOLPIDEM TARTRATE 10 MG TAB PO PRN (21:19)
[2021-02-22] MEDS: MECLIZINE HCL 25 MG TAB PO PRN ×2 (03:26→21:51)
[2021-02-22] MEDS: amLODIPine BESYLATE 5 MG TAB PO SCH (08:01)
[2021-02-22] MEDS: cloNIDine HCL 0.1 MG TAB PO SCH ×3 (08:01→21:41)
[2021-02-22] MEDS: hydrALAZINE TAB 50 MG TAB PO SCH ×3 (08:01→21:41)
[2021-02-22] MEDS: carvediloL 12.5 MG TAB PO SCH ×2 (08:01→21:41)
[2021-02-22] MEDS: ALPRAZolam 0.5 MG TABLET PO SCH ×2 (08:02→21:41)
[2021-02-22 10:59] LABS: Basophils # (auto) 0.02 K/uL (0-0.2); Basophils % (auto) 0.3 %; Eosinophils # (auto) 0.33 K/uL (0-0.5); Eosinophils % (auto) 5.6 %; Hematocrit (blood only) 35.4 % (37-47); Hemoglobin 11.4 g/dL (12.0-16.0); Immature Granulocytes # (auto) 0.03 K/uL (0.00-0.02); Immature Granulocytes % (auto) 0.5 %; Lymphocytes # (auto) 1.34 K/uL (1.2-3.4); Lymphocytes % (auto) 22.9 %; Mean Corpuscular Hemoglobin 31.2 pg (25-34); Mean Corpuscular Hgb Conc 32.2 g/dL (32-36); Monocytes # (auto) 0.53 K/uL (0.11-0.59); Monocytes % (auto) 9.1 %; Neutrophils % (auto) 61.6 %; Platelet Count 197 K/uL (130-400); RDW Coefficient of Variation 13.5 % (11.5-14.5); RDW Standard Deviation 48.1 fL (36.4-46.3); Red Blood Count 3.65 M/uL (4.2-5.4); White Blood Count 5.85 K/uL (4.8-10.8)
--- NOTE | 2021-02-22 12:48 | Hospitalist Progress Note ---
Date of Service February 22, 2021 Assessment & Plan (1) Lightheadedness: Plan: Lightheadedness, improved not yet resolved -Differential includes polypharmacy side effect, dehydration in setting of decreased intake, BPPV, labarynthitis -Lower suspicion for acute neurologic process given CTH neg, benign neuro exam -Clear CBC, unremarkable BMP, normal EKG -Unremarkable BMP on admission MRI without acute findings PT/OT recommend rehab. Referral placement pending. stable for discharge at this time when bed available. Insurance Auth pending, requested patient work again with PT/OT to which patient is agreeable. See case management note. If continue blood pressure control, reasonable control today Meclizine as needed vertigo - Sx greatly improved today, nearing but not completely at baseline (2) History of CVA (cerebrovascular accident): Plan: History of recent CVA -MRI per 11/2020 [facility] records- intraparenchymal right posterior parieto- occipital hematoma with edema, chronic infarct of left parietal lobe -Admission CTH- right posterior parietal infarct consistent with prior hemorrhage, no new bleed -Not on any antiplatelet therapy -Low suspicion for acute ischemic stroke given normal neurologic exam and clinical history -Serial neuro exams q4h -Neurology consulted. MRI does not show any acute changes. (3) ELLY (acute kidney injury): Plan: ELLY on CKD -Baseline BUN low 30s, Cr 1.7-1.9 -Admission BUN 46, Cr 2.20 -Likely due to decreased fluid intake in setting of CKD -Improved with arnulfo fluids - Downtrended, Remains at baseline (4) CKD (chronic kidney disease), stage IV: (5) HTN (hypertension): Plan: HTN -Continue home carvedilol BID, clonidine TID, hydralazine TID, amlodipine -SBP > 200 in ED likely due to missing home clonidine and Coreg dose -Continue to monitor (6) UTI (urinary tract infection): Plan: UTI -01/25 [facility] ED visit- UTI diagnosed, discharged on antibiotics -UA- nitrites, leukocyte esterase, WBCs, bacteria positive -Patient had endorsed new nighttime incontinence, treated with Rocephin - UC pansensitive - Completed 5 days abx, discontinue - Sx resolved Plan: FENGI: Low-salt Code status: Full DVT ppx: SCDs Isolation: None Dispo: Med/Surg Admission and Anticipated Discharge Date Admission Date: February 16, 2021 Subjective Endorses some feeling of illness with high blood pressure this morning, blood pressure normalized following a.m. meds. Endorses some dizziness, improved from admission and about the same as yesterday. Endorses global weakness, and would like to get to rehab to start working on her strength. Otherwise denies chest pain, chest pressure, shortness of breath, difficulty breathing, numbness, tingling, or other new symptoms. Review of Systems Review of Systems: All systems reviewed & are unremarkable except as noted in Subjective Physical Exam Physical Exam: General: A&Ox3. NAD. Cooperative. HEENT: Atraumatic, normocephalic. No nystagmus is appreciated visual acuity and hearing grossly intact. Pulm: CTAB A&P. -wheezes, -rales, -rhonchi. Symmetrical chest rise. No increase work of breathing. No respiratory distress. Cardiac: RRR, -mrg. Radial pulses intact and symmetrical. Abdominal: Nontender, nondistended, soft. BS present. Extremities: Warm, dry. Yarn Tester strength grossly intact, left slightly diminished compared to right. Sensation to soft touch temperature intact in hands and feet bilaterally without asymmetry or deficit. Results & Data Results & Data ([facility]) Vital Signs (Past 12 Hours) Vital Signs Temp Pulse Pulse Resp BP BP Pulse Ox 02/22/21 11:52 36.5 C 71 16 116/70 95 02/22/21 09:45 70 159/73 H 02/22/21 07:30 36.5 C 77 18 196/83 H 93 02/22/21 05:31 74 02/22/21 04:00 36.6 C 78 18 165/71 H 93 PG Care Time/CCT Total # of Minutes Spent Total Time Spent with Patient: Total time spent is greater than 50% in coordination of care (as documented) at patient's floor/unit and/or counseling patient: Coding Level of Care Code 76623 Subseq Hosp Care Lvl 1 Diagnoses Lightheadedness R42 History of CVA (cerebrovascular accident) Z86.73 ELLY (acute kidney injury) N17.9 CKD (chronic kidney disease), stage IV N18.4 HTN (hypertension) I10 UTI (urinary tract infection) N39.0
[2021-02-22] MEDS: ONDANSETRON INJ 2 MG/ML 2 ML VIAL IV PRN (12:57)
[2021-02-22] MEDS: ZOLPIDEM TARTRATE 10 MG TAB PO PRN (21:41)
[2021-02-23] MEDS: cloNIDine HCL 0.1 MG TAB PO SCH ×3 (09:09→20:43)
[2021-02-23] MEDS: hydrALAZINE TAB 50 MG TAB PO SCH ×3 (09:09→20:43)
[2021-02-23] MEDS: amLODIPine BESYLATE 5 MG TAB PO SCH (09:10)
[2021-02-23] MEDS: carvediloL 12.5 MG TAB PO SCH ×2 (09:10→20:42)
[2021-02-23] MEDS: ALPRAZolam 0.5 MG TABLET PO SCH ×2 (09:13→20:42)
--- NOTE | 2021-02-23 12:54 | Hospitalist Progress Note ---
Date of Service February 23, 2021 Assessment & Plan (1) Lightheadedness: Plan: Lightheadedness, improved not yet resolved -Differential includes polypharmacy side effect, dehydration in setting of decreased intake, BPPV, labyrinthitis -Lower suspicion for acute neurologic process given CTH neg, benign neuro exam -Clear CBC, unremarkable BMP, normal EKG -Unremarkable BMP on admission MRI without acute findings PT/OT recommend rehab. Referral placement pending. stable for discharge at this time when bed available. Insurance authorization pending. Patient again worked with PT/OT who recommend acute rehab. Notified by case management today that [facility] requesting [id number] that must be scheduled by 9 AM Saturday. Their office is available at [phone]. Reached out to office today, closed for the holiday and unable to schedule. Will reattempt tomorrow. Meclizine as needed vertigo (2) History of CVA (cerebrovascular accident): Plan: History of recent CVA -MRI per 11/2020 [facility] records- intraparenchymal right posterior parieto- occipital hematoma with edema, chronic infarct of left parietal lobe -Admission CTH- right posterior parietal infarct consistent with prior hemorrhage, no new bleed -Not on any antiplatelet therapy -Low suspicion for acute ischemic stroke given normal neurologic exam and clinical history -Neurology consulted. MRI does not show any acute changes. Continue blood pressure control, meclizine as needed, physical therapy. (3) ELLY (acute kidney injury): Plan: ELLY on CKD -Baseline BUN low 30s, Cr 1.7-1.9 -Admission BUN 46, Cr 2.20 -Likely due to decreased fluid intake in setting of CKD -Improved with arnulfo fluids - Downtrended, returned to normal Additional labs as needed, patient clinically stable (4) CKD (chronic kidney disease), stage IV: (5) HTN (hypertension): Plan: HTN -Continue home carvedilol BID, clonidine TID, hydralazine TID, amlodipine -SBP > 200 in ED likely due to missing home clonidine and Coreg dose -Continue to monitor Remains normotensive with medications (6) UTI (urinary tract infection): Plan: UTI -01/25 [facility] ED visit- UTI diagnosed, discharged on antibiotics -UA- nitrites, leukocyte esterase, WBCs, bacteria positive -Patient had endorsed new nighttime incontinence, treated with Rocephin - UC pansensitive - Completed 5 days abx, discontinue - Sx resolved Plan: FENGI: Low-salt Code status: Full DVT ppx: SCDs Isolation: None Dispo: Med/Surg Admission and Anticipated Discharge Date Admission Date: February 16, 2021 Subjective Seen at bedside this morning. Patient reports mild dizziness, global weakness without clinical change or other acute symptoms today. Reports that she is eager to start with rehab, is aware she is awaiting placement. No other questions at time bedside assessment. Denies fever, chills, sweats, chest pain, chest pressure, shortness of breath, difficulty breathing, extremity pain, other pain. Eating and drinking well. No nausea at time of morning assessment. Review of Systems Review of Systems: All systems reviewed & are unremarkable except as noted in Subjective Physical Exam Physical Exam: General: A&Ox3. NAD. Cooperative. HEENT: Atraumatic, normocephalic. No nystagmus is appreciated visual acuity and hearing grossly intact. Pulm: CTAB A&P. -wheezes, -rales, -rhonchi. Symmetrical chest rise. No increase work of breathing. No respiratory distress. Cardiac: RRR, -mrg. Radial pulses intact and symmetrical. Abdominal: Nontender, nondistended, soft. BS present. Extremities: Warm, dry. Application Support Lead strength grossly intact. Sensation to soft touch temperature intact in hands and feet bilaterally without asymmetry or deficit. Results & Data Results & Data ([facility]) Vital Signs (Past 12 Hours) Vital Signs Temp Pulse Pulse Resp BP Pulse Ox 02/23/21 11:36 37.1 C 77 19 140/76 92 02/23/21 08:00 80 02/23/21 07:39 36.8 C 75 18 175/69 H 91 02/23/21 03:15 36.8 C 81 18 143/75 H 90 02/23/21 01:36 68 PG Care Time/CCT Total # of Minutes Spent Total Time Spent with Patient: Total time spent is greater than 50% in coordination of care (as documented) at patient's floor/unit and/or counseling patient: Coding Level of Care Code 16783 Subseq Hosp Care Lvl 1 Diagnoses Lightheadedness R42 History of CVA (cerebrovascular accident) Z86.73 ELLY (acute kidney injury) N17.9 CKD (chronic kidney disease), stage IV N18.4 HTN (hypertension) I10 UTI (urinary tract infection) N39.0
[2021-02-23] MEDS: ZOLPIDEM TARTRATE 10 MG TAB PO PRN (20:42)
[2021-02-24] MEDS: ALPRAZolam 0.5 MG TABLET PO SCH ×2 (08:11→20:48)
[2021-02-24] MEDS: hydrALAZINE TAB 50 MG TAB PO SCH ×3 (08:12→20:49)
[2021-02-24] MEDS: cloNIDine HCL 0.1 MG TAB PO SCH ×3 (08:12→20:48)
[2021-02-24] MEDS: carvediloL 12.5 MG TAB PO SCH ×2 (08:12→20:48)
[2021-02-24] MEDS: amLODIPine BESYLATE 5 MG TAB PO SCH (08:13)
[2021-02-24] MEDS: MECLIZINE HCL 25 MG TAB PO PRN ×2 (10:24→16:34)
--- NOTE | 2021-02-24 12:15 | Hospitalist Progress Note ---
Date of Service February 24, 2021 Assessment & Plan (1) Lightheadedness: Plan: Lightheadedness, improved not yet resolved -Differential includes polypharmacy side effect, dehydration in setting of decreased intake, BPPV, labyrinthitis -Lower suspicion for acute neurologic process given CTH neg, benign neuro exam -Clear CBC, unremarkable BMP, normal EKG -Unremarkable BMP on admission MRI without acute findings PT/OT recommend rehab. Referral placement pending. stable for discharge at this time when bed available. Insurance authorization pending. Patient again worked with PT/OT who recommend acute rehab. Notified by case management today that [facility] requesting [id number] that must be scheduled by 9 AM Saturday. Their office is available at [phone]. Reached out 02/23, closed for holiday. Called again at 0800, 0915, and 1215 hrs 02/24 remain closed without indication of office hours for holiday on voicemail. Meclizine as needed vertigo (2) History of CVA (cerebrovascular accident): Plan: History of recent CVA -MRI per 11/2020 [facility] records- intraparenchymal right posterior parieto- occipital hematoma with edema, chronic infarct of left parietal lobe -Admission CTH- right posterior parietal infarct consistent with prior hemorrhage, no new bleed -Not on any antiplatelet therapy -Low suspicion for acute ischemic stroke given normal neurologic exam and clinical history -Neurology consulted. MRI does not show any acute changes. Continue blood pressure control, meclizine as needed, physical therapy. (3) ELLY (acute kidney injury): Plan: ELLY on CKD -Baseline BUN low 30s, Cr 1.7-1.9 -Admission BUN 46, Cr 2.20 -Likely due to decreased fluid intake in setting of CKD -Improved with arnulfo fluids - Downtrended, returned to normal Additional labs as needed, patient clinically stable (4) CKD (chronic kidney disease), stage IV: (5) HTN (hypertension): Plan: HTN -Continue home carvedilol BID, clonidine TID, hydralazine TID, amlodipine -SBP > 200 in ED likely due to missing home clonidine and Coreg dose -Continue to monitor Remains normotensive with medications (6) UTI (urinary tract infection): Plan: UTI -01/25 [facility] ED visit- UTI diagnosed, discharged on antibiotics -UA- nitrites, leukocyte esterase, WBCs, bacteria positive -Patient had endorsed new nighttime incontinence, treated with Rocephin - UC pansensitive - Completed 5 days abx, no additional antibiotics indicated at this time - Sx resolved Plan: FENGI: Low-salt Code status: Full DVT ppx: SCDs Isolation: None Dispo: Med/Surg Admission and Anticipated Discharge Date Admission Date: February 16, 2021 Subjective Seen at bedside this morning. Reports dizziness seems to be a little bit worse in the morning before meds, improves following. Continues to be eager to start rehab, aware waiting for insurance authorization and placement. No additional questions at bedside. Denies fever, chills, sweats, chest pain, chest pressure, shortness of breath, difficulty breathing, extremity pain, other pain. Eating and drinking well. Review of Systems Review of Systems: All systems reviewed & are unremarkable except as noted in Subjective Physical Exam Physical Exam: General: A&Ox3. NAD. Cooperative. HEENT: Atraumatic, normocephalic. No nystagmus is appreciated visual acuity and hearing grossly intact. Pulm: CTAB A&P. -wheezes, -rales, -rhonchi. Symmetrical chest rise. No increase work of breathing. No respiratory distress. Cardiac: RRR, -mrg. Radial pulses intact and symmetrical. Abdominal: Nontender, nondistended, soft. BS present. Extremities: Warm, dry. Biochemical Engineer strength grossly intact. Sensation to soft touch temperature intact in hands and feet bilaterally without asymmetry or deficit. Results & Data Results & Data ([facility]) Vital Signs (Past 12 Hours) Vital Signs Temp Pulse Pulse Resp BP Pulse Ox 02/24/21 11:45 36.4 C L 67 20 122/71 96 02/24/21 07:28 70 02/24/21 07:11 36.5 C 72 18 136/70 93 02/24/21 03:12 36.7 C 76 20 129/68 92 PG Care Time/CCT Total # of Minutes Spent Total Time Spent with Patient: Total time spent is greater than 50% in coordination of care (as documented) at patient's floor/unit and/or counseling patient: Coding Level of Care Code 41842 Subseq Hosp Care Lvl 1 Diagnoses Lightheadedness R42 History of CVA (cerebrovascular accident) Z86.73 ELLY (acute kidney injury) N17.9 CKD (chronic kidney disease), stage IV N18.4 HTN (hypertension) I10 UTI (urinary tract infection) N39.0
[2021-02-24] MEDS: ZOLPIDEM TARTRATE 10 MG TAB PO PRN (20:48)
[2021-02-25] MEDS: amLODIPine BESYLATE 5 MG TAB PO SCH (08:07)
[2021-02-25] MEDS: hydrALAZINE TAB 50 MG TAB PO SCH ×3 (08:08→20:23)
[2021-02-25] MEDS: MECLIZINE HCL 25 MG TAB PO PRN (08:08)
[2021-02-25] MEDS: cloNIDine HCL 0.1 MG TAB PO SCH ×3 (08:08→20:23)
[2021-02-25] MEDS: carvediloL 12.5 MG TAB PO SCH ×2 (08:08→20:22)
[2021-02-25] MEDS: ALPRAZolam 0.5 MG TABLET PO SCH ×2 (08:09→20:22)
[2021-02-25] MEDS ORDERED: SERTRALINE HCL 100 MG TABLET PO ONE (19:25)
--- NOTE | 2021-02-25 19:26 | Hospitalist Progress Note ---
Date of Service February 25, 2021 Assessment & Plan (1) Lightheadedness: Plan: pt's description is NOT c/w vertigo. no response to meclizine. the dizziness is a "swimmy"/lightheaded feeling. orthostatic BPs today negative. MRI brain neg. PT vestibular eval could not provoke any vertigo. I reviewed her outpatient medication list and pharmacy record - she has had numerous titrations of her BP meds over the last few months. Clonidine was increased to TID. Hydralazine was added. Etc. Further, she was taking sertraline at home - it is being held here - SSRI withdrawal can made dizziness worse. Thus, will resume her zoloft. Try cutting back her clonidine to BID dosing. Follow BPs carefully. Check a B12 level in am. Check mag and TSH. PT/OT recommend rehab. Insurance authorization pending. Case management reported that [facility] requested [id number] to be scheduled by 9 AM Saturday. Number - [phone]. Previous attending MD called [facility] 02/23, closed for holiday. Previous attending also called at 0800, 0915, and 1215 hrs on 02/24 without success. Will call first thing in am SATURDAY. (2) History of CVA (cerebrovascular accident): Plan: History of recent CVA MRI per 11/2020 [facility] records- intraparenchymal right posterior parieto- occipital hematoma with edema, chronic infarct of left parietal lobe. CT head this admission - right posterior parietal infarct consistent with prior hemorrhage, no new bleed. MRI brain negative for acute CVA. She is NOT on asa, plavix, etc. (3) ELLY (acute kidney injury): Plan: Cr at admission 2.20 Improved/resolved - most recent Cr 1.8 repeat BMP in am for stability (4) CKD (chronic kidney disease), stage IV: Plan: baseline Cr high 1's (5) HTN (hypertension): Plan: on complex regimen of carvedilol BID, clonidine TID, hydralazine TID, amlodipine daily. see above in #1. try reducing clonidine to BID dosing. follow response. (6) UTI (urinary tract infection): Plan: completed 5+ days of Rx resolved (7) Hypercholesterolemia: Plan: not on statin uncertain why most recent LDL = 127 (2019) consider recheck in light of multiple CVAs (8) Morbid obesity: Plan: BMI 44 (9) Major depressive disorder: Plan: resume zoloft 100mg daily (10) GERD (gastroesophageal reflux disease): Plan: not on meds for such Plan: pt with poor mobility - really should be on SC heparin for DVT proph we are several months out from prior hemorrhagic cva - should be ok will check with neuro Admission and Anticipated Discharge Date Admission Date: February 16, 2021 Subjective patient continues to have lightheadedness/dizziness but NO vertigo she will even get the symptoms at rest not exactly positional no response to antivert denies ataxia minimal nausea no focal motor weakness denies any recent change in her medications otherwise feeling well Review of Systems Review of Systems: gen - no fevers, no chills HEENT - no ear pain, tinnitus, or significant hearing loss CV - no chest pain pulm - no cough or congestion Physical Exam Physical Exam: gen - morbid obesity, NAD eyes - no obvious nystagmus; EOMI mouth - MMM heart - RRR, s1 s2 lungs - CTA b/l abd - soft NT ND BS+ ext - no edema, pulses 2+ b/l neuro - strength 5/5 x 4 exts; finger/nose/finger maneuver w/o ataxia; gait not assessed Results & Data Results & Data ([facility]) Vital Signs (Past 12 Hours) Vital Signs Temp Pulse Pulse Resp BP Pulse Ox 02/25/21 15:10 36.4 C L 68 18 133/75 97 02/25/21 14:18 70 02/25/21 11:19 36.4 C L 68 20 109/54 L 94 02/25/21 08:37 82 20 121/47 L 96 02/25/21 08:00 36.3 C L 73 20 135/71 94 Diagnostic Findings PT vestibular eval -- vertigo could not be provoked PG Care Time/CCT Total # of Minutes Spent Total Time Spent with Patient: Total time spent is greater than 50% in coordination of care (as documented) at patient's floor/unit and/or counseling patient: Coding Level of Care Code 47146 Subseq Hosp Care Lvl 3 Diagnoses Lightheadedness R42 History of CVA (cerebrovascular accident) Z86.73 ELLY (acute kidney injury) N17.9 CKD (chronic kidney disease), stage IV N18.4 HTN (hypertension) I10 UTI (urinary tract infection) N39.0 Hypercholesterolemia E78.00 Morbid obesity E66.01 Major depressive disorder F32.9 GERD (gastroesophageal reflux disease) K21.9
[2021-02-25] MEDS: ZOLPIDEM TARTRATE 10 MG TAB PO PRN (20:22)
[2021-02-26] MEDS: cloNIDine HCL 0.1 MG TAB PO SCH ×2 (08:10→20:09)
[2021-02-26] MEDS: SERTRALINE HCL 100 MG TABLET PO SCH (08:10)
[2021-02-26] MEDS: hydrALAZINE TAB 50 MG TAB PO SCH ×3 (08:11→20:09)
[2021-02-26] MEDS: carvediloL 12.5 MG TAB PO SCH ×2 (08:11→20:09)
[2021-02-26] MEDS: ALPRAZolam 0.5 MG TABLET PO SCH ×2 (08:13→20:08)
[2021-02-26] MEDS: amLODIPine BESYLATE 5 MG TAB PO SCH (08:14)
[2021-02-26] MEDS: MECLIZINE HCL 25 MG TAB PO PRN ×2 (08:16→20:59)
[2021-02-26 09:31] LABS: Hematocrit (blood only) 36.5 % (37-47); Hemoglobin 11.7 g/dL (12.0-16.0); Mean Corpuscular Hemoglobin 31.2 pg (25-34); Mean Corpuscular Hgb Conc 32.1 g/dL (32-36); Mean Corpuscular Volume 97.3 fL (80-100); Mean Platelet Volume 10.2 fL (7.4-10.4); Platelet Count 233 K/uL (130-400); RDW Coefficient of Variation 13.9 % (11.5-14.5); RDW Standard Deviation 49.4 fL (36.4-46.3); Red Blood Count 3.75 M/uL (4.2-5.4); White Blood Count 5.48 K/uL (4.8-10.8)
[2021-02-26 09:59] LABS: BUN Creatinine Ratio 12.8 (10-20); Est GFR (African American) 30.6 ml/min; Est GFR (Non-African American) 26.4 ml/min; Potassium 3.6 mmol/L (3.5-5.1)
[2021-02-26 10:09] LABS: Thyroid Stimulating Hormone 4.62 uIu/ml (0.300-4.500)
[2021-02-26 10:27] LABS: T4 Free Thyroxine 1.09 ng/dl (0.8-1.6)
--- NOTE | 2021-02-26 20:57 | Hospitalist Progress Note ---
Date of Service February 26, 2021 Assessment & Plan (1) Lightheadedness: Plan: pt's description is NOT c/w vertigo. no response to meclizine during the stay. the dizziness is a "swimmy"/lightheaded feeling. she gets it at rest, but it is worse with activity. despite such her orthostatics are negative. MRI brain negative for acute CVA (resolving R parietal hematoma from previous). P PT vestibular eval could not provoke any vertigo. I reviewed her outpatient medication list and pharmacy record - she has had numerous titrations of her BP meds over the last few months. Clonidine was increased to TID. Hydralazine was added. Etc. Further, her sertraline had been on hold since admission - resumed 02/25. B12 level low-normal - doubt contributing to this symptom, but certainly worth replacing. TSH wnl. Mag wnl. She has significant polypharmacy of BP meds and also psychotropic meds. Clonidine reduced from TID to BID dosing. Amlodipine reduced from 10mg to 5mg. Will see if these changes lead to improved symptoms. PT/OT recommend rehab. Insurance authorization pending. Case management reported that [facility] requested [id number] to be scheduled by 9 AM Saturday. Number - [phone]. Previous attending MD called [facility] 02/23, closed for holiday. Previous attending also called at 0800, 0915, and 1215 hrs on 02/24 without success. Will call first thing in am SATURDAY. (2) History of CVA (cerebrovascular accident): Plan: History of recent hemorrhagic CVA. MRI per 11/2020 [facility] records- intraparenchymal right posterior parieto- occipital hematoma with edema, chronic infarct of left parietal lobe. CT head this admission - right posterior parietal infarct consistent with prior hemorrhage, no new bleed. MRI brain negative for acute CVA. She is NOT on asa, plavix, etc. (3) ELLY (acute kidney injury): Plan: Cr at admission 2.20 Improved/resolved - most recent Cr 1.8 - baseline (4) CKD (chronic kidney disease), stage IV: Plan: baseline Cr high 1's (5) HTN (hypertension): Plan: on complex regimen of carvedilol BID, clonidine TID, hydralazine TID, amlodipine daily. see above in #1. try reducing clonidine to BID dosing. BPs still low-normal -- amlodipine cut to 5mg. follow BPs (6) UTI (urinary tract infection): Plan: completed 5+ days of Rx resolved (7) Hypercholesterolemia: Plan: not on statin uncertain why most recent LDL = 127 (2019) consider recheck in light of multiple CVAs (8) Morbid obesity: Plan: BMI 44 (9) Major depressive disorder: Plan: resumed zoloft 100mg daily (10) GERD (gastroesophageal reflux disease): Plan: not on meds for such Plan: pt with poor mobility - really should be on SC heparin for DVT proph we are several months out from prior hemorrhagic cva - should be ok will check with neuro re: this cont PT/OT needs rehab Admission and Anticipated Discharge Date Admission Date: February 16, 2021 Subjective pt was sitting in the chair much of the am started to feel lightheaded/dizzy and got back into the bed felt better following such no headache occasional nausea with the lightheadedness still no vertigo eating well tele stable still hoping for rehab Review of Systems Review of Systems: gen - no fevers, no chills CV - no chest pain pulm - no dyspnea GI - no vomiting, no abd pain neuro - no spinning or vertigo or ataxia Physical Exam Physical Exam: gen - morbid obesity, NAD mouth - MMM heart - RRR, s1 s2 lungs - CTA b/l abd - soft NT ND BS+ ext - no edema, pulses 2+ b/l neuro - strength 5/5 x 4 exts Results & Data Results & Data ([facility]) Vital Signs (Past 12 Hours) Vital Signs Temp Pulse Pulse Resp BP Pulse Ox 02/26/21 20:02 36.9 C 77 18 169/77 H 95 02/26/21 15:00 69 02/26/21 11:30 36.4 C L 76 18 119/66 96 Laboratory Results Laboratory Results - last 24 hr 02/26/21 02/26/21 02/26/21 08:46 08:46 08:46 WBC 5.48 RBC 3.75 L Hgb 11.7 L Hct 36.5 L MCV 97.3 MCH 31.2 MCHC 32.1 RDW Std Deviation 49.4 H RDW Coeff of Chauncey 13.9 Plt Count 233 MPV 10.2 Sodium 142 Potassium 3.6 Chloride 109 H Carbon Dioxide 23 Anion Gap 11.0 BUN 24 H Creatinine 1.85 H Est Cr Clr Drug Dosing 29.0 Est GFR ( Amer) 30.6 Est GFR (Non-Af Amer) 26.4 BUN/Creatinine Ratio 12.8 Glucose 141 H Calcium 9.0 Magnesium 2.0 Vitamin B12 364 TSH 4.620 H Free T4 1.09 PG Care Time/CCT Total # of Minutes Spent Total Time Spent with Patient: Total time spent is greater than 50% in coordination of care (as documented) at patient's floor/unit and/or counseling patient: Coding Level of Care Code 18847 Subseq Hosp Care Lvl 2 Diagnoses Lightheadedness R42 History of CVA (cerebrovascular accident) Z86.73 ELLY (acute kidney injury) N17.9 CKD (chronic kidney disease), stage IV N18.4 HTN (hypertension) I10 UTI (urinary tract infection) N39.0 Hypercholesterolemia E78.00 Morbid obesity E66.01 Major depressive disorder F32.9 GERD (gastroesophageal reflux disease) K21.9
[2021-02-26] MEDS: ZOLPIDEM TARTRATE 10 MG TAB PO PRN (20:59)
[2021-02-27] MEDS: ALPRAZolam 0.5 MG TABLET PO SCH ×2 (07:55→19:58)
[2021-02-27] MEDS: amLODIPine BESYLATE 5 MG TAB PO SCH ×2 (07:56→19:54)
[2021-02-27] MEDS: carvediloL 12.5 MG TAB PO SCH ×2 (07:56→19:54)
[2021-02-27] MEDS: cloNIDine HCL 0.1 MG TAB PO SCH ×2 (07:56→19:55)
[2021-02-27] MEDS: MECLIZINE HCL 25 MG TAB PO PRN (07:57)
[2021-02-27] MEDS: hydrALAZINE TAB 50 MG TAB PO SCH ×3 (07:57→19:55)
[2021-02-27] MEDS: SERTRALINE HCL 100 MG TABLET PO SCH (07:57)
[2021-02-27] MEDS: CYANOCOBALAMIN 500 MCG TABLET (VITAMIN B-12) PO SCH (11:26)
[2021-02-27] MEDS: HEPARIN SOD 5,000 UNIT/0.5 ML VIAL SQ SCH ×3 (11:26→19:54)
--- NOTE | 2021-02-27 18:16 | Hospitalist Progress Note ---
Date of Service February 27, 2021 Assessment & Plan (1) Lightheadedness: Plan: pt's description is NOT c/w vertigo. no response to meclizine during the stay. the dizziness is a "swimmy"/lightheaded feeling. she gets it at rest, but it is worse with activity. despite such her orthostatics are negative. MRI brain negative for acute CVA (resolving R parietal hematoma from previous). P PT vestibular eval could not provoke any vertigo. I reviewed her outpatient medication list and pharmacy record - she has had numerous titrations of her BP meds over the last few months. Clonidine was increased to TID. Hydralazine was added. Etc. Further, her sertraline had been on hold since admission - resumed 02/25. B12 level low-normal - doubt contributing to this symptom, but certainly worth replacing. TSH wnl. Mag wnl. Cortisol today wnl thus no adrenal insufficiency. She has significant polypharmacy of BP meds and also psychotropic meds. Clonidine reduced from TID to BID dosing. Amlodipine changed to 5mg BID to allow smoother BP reduction. PT/OT recommend rehab. She has 50% functional loss and moderate assistance with ADLS, etc. Walking <20 feet. Contacted [employer] today -- peer to peer set up for tomorrow am at 10am. (2) History of CVA (cerebrovascular accident): Plan: History of recent hemorrhagic CVA. MRI per 11/2020 [facility] records- intraparenchymal right posterior parieto- occipital hematoma with edema, chronic infarct of left parietal lobe. CT head this admission - right posterior parietal infarct consistent with prior hemorrhage, no new bleed. MRI brain negative for acute CVA. She is NOT on asa, plavix, etc. (3) ELLY (acute kidney injury): Plan: Cr at admission 2.20 Improved/resolved - most recent Cr 1.8 - baseline (4) CKD (chronic kidney disease), stage IV: Plan: baseline Cr high 1's (5) HTN (hypertension): Plan: on complex regimen of carvedilol BID, clonidine TID, hydralazine TID, amlodipine daily. see above in #1. try reducing clonidine to BID dosing. amlodipine changed from 10mg qd to 5mg BID for smoother control (6) UTI (urinary tract infection): Plan: completed 5+ days of Rx resolved (7) Hypercholesterolemia: Plan: not on statin uncertain why most recent LDL = 127 (2019) consider recheck in light of multiple CVAs (8) Morbid obesity: Plan: BMI 44 (9) Major depressive disorder: Plan: resumed zoloft 100mg daily (10) GERD (gastroesophageal reflux disease): Plan: not on meds for such Plan: start SC heparin for DVT proph - checked with neuro and ok to give such as recent imaging with no active bleed cont PT/OT needs rehab desperately updated by phone this evening Admission and Anticipated Discharge Date Admission Date: February 16, 2021 Subjective no issues overnight tele stable feeling good she does report that her sleepiness seems better since cutting back the clonidine still with occasional swimmy feeling/dizzy feeling but again no vertigo eating well still hoping for rehab at [facility] Review of Systems Review of Systems: gen - no fevers cv - no orthopnea/cp pulm - no cough gi - no N/V/D/constipation Physical Exam Physical Exam: gen - morbid obesity, NAD mouth - MMM heart - RRR, s1 s2 lungs - CTA b/l abd - soft NT ND BS+ ext - no edema, pulses 2+ b/l neuro - strength 5/5 x 4 exts Results & Data Results & Data ([facility]) Vital Signs (Past 12 Hours) Vital Signs Temp Pulse Pulse Resp BP Pulse Ox 02/27/21 15:07 36.2 C L 68 18 159/76 H 97 02/27/21 14:17 60 02/27/21 11:00 36.3 C L 63 20 118/67 94 02/27/21 08:09 36.5 C 79 18 182/80 H 96 02/27/21 07:55 82 143/74 H 02/27/21 06:17 62 Laboratory Results Laboratory Results - last 24 hr 02/27/21 08:20 Cortisol AM Sample 16.75 PG Care Time/CCT Total # of Minutes Spent Total Time Spent with Patient: Total time spent is greater than 50% in coordination of care (as documented) at patient's floor/unit and/or counseling patient: Coding Level of Care Code 89525 Subseq Hosp Care Lvl 2 Diagnoses Lightheadedness R42 History of CVA (cerebrovascular accident) Z86.73 ELLY (acute kidney injury) N17.9 CKD (chronic kidney disease), stage IV N18.4 HTN (hypertension) I10 UTI (urinary tract infection) N39.0 Hypercholesterolemia E78.00 Morbid obesity E66.01 Major depressive disorder F32.9 GERD (gastroesophageal reflux disease) K21.9
[2021-02-27] MEDS: ARIPiprazole 5 MG TAB PO SCH (19:59)
[2021-02-28] MEDS: ZOLPIDEM TARTRATE 10 MG TAB PO PRN ×2 (05:03→21:22)
[2021-02-28] MEDS: ACETAMINOPHEN 325 MG TAB PO PRN (05:03)
[2021-02-28] MEDS: MELATONIN 3 MG TAB PO PRN (05:03)
[2021-02-28] MEDS: HEPARIN SOD 5,000 UNIT/0.5 ML VIAL SQ SCH ×3 (05:04→21:25)
[2021-02-28] MEDS: ALPRAZolam 0.5 MG TABLET PO SCH ×2 (08:46→21:23)
[2021-02-28] MEDS: carvediloL 12.5 MG TAB PO SCH ×2 (08:46→21:24)
[2021-02-28] MEDS: amLODIPine BESYLATE 5 MG TAB PO SCH ×2 (08:46→21:23)
[2021-02-28] MEDS: hydrALAZINE TAB 50 MG TAB PO SCH ×3 (08:47→21:23)
[2021-02-28] MEDS: CYANOCOBALAMIN 500 MCG TABLET (VITAMIN B-12) PO SCH (08:47)
[2021-02-28] MEDS: SERTRALINE HCL 100 MG TABLET PO SCH (08:47)
[2021-02-28] MEDS: cloNIDine HCL 0.1 MG TAB PO SCH ×2 (08:47→21:23)
[2021-02-28] MEDS: hydroCHLOROthiazide 25 MG TAB PO SCH (10:02)
[2021-02-28] MEDS: ARIPiprazole 5 MG TAB PO SCH (21:23)
--- NOTE | 2021-03-01 00:24 | Hospitalist Progress Note ---
Date of Service March 01, 2021 Assessment & Plan (1) Lightheadedness: Plan: pt's description is NOT c/w vertigo. no response to meclizine during the stay. the dizziness is a "swimmy"/lightheaded feeling. she gets it at rest, but it is worse with activity. despite such her orthostatics are negative. MRI brain negative for acute CVA (resolving R parietal hematoma from previous). P PT vestibular eval could not provoke any vertigo. I reviewed her outpatient medication list and pharmacy record - she has had numerous titrations of her BP meds over the last few months. Clonidine was increased to TID. Hydralazine was added. Etc. Further, her sertraline had been on hold since admission - resumed 02/25. B12 level low-normal - doubt contributing to this symptom, but certainly worth replacing. TSH wnl. Mag wnl. Cortisol wnl. She has significant polypharmacy of BP meds and also psychotropic meds. Clonidine reduced from TID to BID dosing. Amlodipine changed to 5mg BID to allow smoother BP reduction. Buspar on hold. Abilify dose reduced from 10mg to 5mg PT/OT recommend rehab. She has 50% functional loss and moderate assistance with ADLS, etc. Walking <20 feet. Contacted [facility] today -- peer to peer completed, APPROVED for inpatient rehab. (2) History of CVA (cerebrovascular accident): Plan: History of recent hemorrhagic CVA. MRI per 11/2020 [facility] records- intraparenchymal right posterior parieto- occipital hematoma with edema, chronic infarct of left parietal lobe. CT head this admission - right posterior parietal infarct consistent with prior hemorrhage, no new bleed. MRI brain negative for acute CVA. She is NOT on asa, plavix, etc. (3) ELLY (acute kidney injury): Plan: Cr at admission 2.20 Improved/resolved - most recent Cr 1.8 - baseline BMP in am (4) CKD (chronic kidney disease), stage IV: Plan: baseline Cr high 1's (5) HTN (hypertension): Plan: on complex regimen of carvedilol BID, clonidine TID, hydralazine TID, amlodipine daily. see above in #1. clonidine reduced to BID dosing. amlodipine changed from 10mg qd to 5mg BID for smoother control added HCTZ low-dose 12.5mg daily check renin and alice levels (6) UTI (urinary tract infection): Plan: completed 5+ days of Rx resolved (7) Hypercholesterolemia: Plan: not on statin uncertain why most recent LDL = 127 (2019) consider recheck in light of multiple CVAs (8) Morbid obesity: Plan: BMI 44 (9) Major depressive disorder: Plan: resumed zoloft 100mg daily resumed abilify xanax BID for anxiety buspar on hold (10) GERD (gastroesophageal reflux disease): Plan: not on meds for such Plan: heparin SC - DVT proph cont PT/OT needs rehab desperately rehab approved today updated at bedside hopefully can d/c to rehab tomorrow will update her provider Ms Esparza at [facility] tomorrow Admission and Anticipated Discharge Date Admission Date: February 16, 2021 Subjective no issues overnight dizziness/lightheadedness "not bad" today resting comfortably no new complaints eating well at bedside during the encounter did [id number] with her insurance co - APPROVED for inpt rehab pt and aware social work aware Review of Systems Review of Systems: gen - mild ongoing fatigue cv - no cp, no orthopnea pulm - no cough/congestion GI - no abd pain/N/V psych - denies any worsening in her anxiety; denies active depression; thinks she is doing ok from mental health standpoint Physical Exam Physical Exam: gen - morbid obesity, NAD mouth - MMM heart - RRR, s1 s2, no murmur lungs - CTA b/l abd - soft NT ND BS+ ext - no edema, pulses 2+ b/l psych - normal affect Results & Data Results & Data ([facility]) Vital Signs (Past 12 Hours) Vital Signs Temp Pulse Pulse Resp BP Pulse Ox 02/28/21 22:38 36.6 C 72 18 135/68 92 02/28/21 19:07 36.7 C 73 18 151/74 H 95 02/28/21 15:52 36.5 C 69 18 146/71 H 94 02/28/21 14:18 62 PG Care Time/CCT Total # of Minutes Spent Total Time Spent with Patient: Total time spent is greater than 50% in coordination of care (as documented) at patient's floor/unit and/or counseling patient: Coding Level of Care Code 37577 Subseq Hosp Care Lvl 2 Diagnoses Lightheadedness R42 History of CVA (cerebrovascular accident) Z86.73 ELLY (acute kidney injury) N17.9 CKD (chronic kidney disease), stage IV N18.4 HTN (hypertension) I10 UTI (urinary tract infection) N39.0 Hypercholesterolemia E78.00 Morbid obesity E66.01 Major depressive disorder F32.9 GERD (gastroesophageal reflux disease) K21.9
[2021-03-01] MEDS: HEPARIN SOD 5,000 UNIT/0.5 ML VIAL SQ SCH ×2 (05:44→12:47)
[2021-03-01 05:57] LABS: Hematocrit (blood only) 33.3 % (37-47); Hemoglobin 10.7 g/dL (12.0-16.0); Mean Corpuscular Hemoglobin 31.3 pg (25-34); Mean Corpuscular Hgb Conc 32.1 g/dL (32-36); Mean Corpuscular Volume 97.4 fL (80-100); Mean Platelet Volume 9.6 fL (7.4-10.4); Platelet Count 186 K/uL (130-400); RDW Coefficient of Variation 13.9 % (11.5-14.5); RDW Standard Deviation 49.9 fL (36.4-46.3); Red Blood Count 3.42 M/uL (4.2-5.4); White Blood Count 4.26 K/uL (4.8-10.8)
[2021-03-01 06:24] LABS: Calcium 9.4 mg/dl (8.5-10.1); Creatinine Clr Calc Pharmacy 29.9 ml/min; Est GFR (African American) 32.2 ml/min; Est GFR (Non-African American) 27.8 ml/min; Potassium 3.8 mmol/L (3.5-5.1)
[2021-03-01] MEDS: SERTRALINE HCL 100 MG TABLET PO SCH (08:04)
[2021-03-01] MEDS: CYANOCOBALAMIN 500 MCG TABLET (VITAMIN B-12) PO SCH (08:04)
[2021-03-01] MEDS: carvediloL 12.5 MG TAB PO SCH (08:04)
[2021-03-01] MEDS: hydroCHLOROthiazide 25 MG TAB PO SCH (08:04)
[2021-03-01] MEDS: cloNIDine HCL 0.1 MG TAB PO SCH (08:05)
[2021-03-01] MEDS: hydrALAZINE TAB 50 MG TAB PO SCH ×2 (08:05→12:47)
[2021-03-01] MEDS: amLODIPine BESYLATE 5 MG TAB PO SCH (08:05)
[2021-03-01] MEDS: ALPRAZolam 0.5 MG TABLET PO SCH (08:06)
--- NOTE | 2021-03-01 12:18 | Discharge Summary ---
Date of Service date of admission - February 16, 2021 date of discharge - March 01, 2021 Admission HPI Per Admitting Provider 76 yo F with PMH CKD4, HTN, CVA, anxiety presenting with lightheadedness. Pt had R parieto-occipital hemorrhagic stroke in November 2020, managed at [facility] and d ischarged home with home health services. Since then pt has had intermittent lightheadedness and nausea, had ED visit in late December for these symptoms and found to have UTI for which she received treatment. Symptoms decreased slightly but worsened again 5 days ago- reports constant lightheadedness with sensation of room spinning, associated loss of appetite and nausea. Lightheadedness worsens with movement. Pt has not eaten or drank much over last 2 weeks. Denies LOC, syncope, dysuria, urgency or retention. Denies headache, weakness, numbness, tingling, vision or hearing change, imbalance. Principal Diagnosis Dizziness/lightheadedness - exact etiology uncertain, felt to be medication- related or blood pressure-related Discharge Exam gen - morbid obesity, NAD mouth - MMM heart - RRR, s1 s2, no murmur lungs - CTA b/l abd - soft NT ND BS+ ext - no edema, pulses 2+ b/l psych - normal affect neuro - no nystagmus; finger/nose/finger maneuver w/o ataxia Discharge Data Allergies Allergy/AdvReac Type Severity Reaction Status Date / Time fentanyl Allergy Intermediate extreme Verified 01/04/21 11:47 confusion/hallucination amoxicillin Allergy Mild Hives Verified 01/04/21 11:47 Penicillins Allergy Mild RASH TO Verified 01/04/21 11:47 AMOXIL, NO RESP PROBLEMS Consultations [facility] PT, OT Ordered Studies Chest X-Ray 02/16/21 16:30 SINGLE VIEW CHEST CLINICAL HISTORY: Dizziness. FINDINGS: An AP, portable, upright chest radiograph is compared to study dated 01/25/2021. The heart is mildly enlarged noting atherosclerotic calcification of the thoracic ureter. The pulmonary vasculature is noncongested. Chronic interstitial thickening is similar to previous. There are low lung volumes with bibasilar atelectasis. The lungs and pleural spaces are otherwise clear. No pneumothorax is seen. The skeletal structures are osteopenic. The bony thorax is grossly intact. IMPRESSION: No active disease in the chest. ACT 112: Negative or not required by law. Electronically signed by: Ryan Mcfarland M.D. 02/16/2021 5:[address] 02/16/21 16:30 CT SCAN OF THE BRAIN WITHOUT IV CONTRAST CLINICAL HISTORY: Vertigo. COMPARISON STUDY: CT of the brain dated 01/25/2021 and 12/18/2020. TECHNIQUE: Unenhanced axial CT scan of the brain is performed from the vertex to the skull base. A dose lowering technique was utilized adhering to the principles of ALARA. CT DOSE: 994.86 mGycm FINDINGS: Brain parenchyma: A small focus of encephalomalacia in the high posterior parietal white matter is unchanged from 01/25/2021 and consistent with a site of previous hemorrhage. Left periventricular hypodensity is also unchanged. There are age-related involutional changes noting minimal subcortical and periventricular microangiopathic change. There is no hemorrhage, mass effect, or evidence of acute territorial ischemia by CT criteria. Denise-white matter differentiation is preserved. No extra-axial fluid collection is seen. Ventricles, sulci, cisterns: Prominent secondary to involutional change. Intracranial vasculature: There is atherosclerotic calcification of the cavernous carotid arteries. Calvarium: Unremarkable. Sinuses and mastoids: There is mild mucosal thickening in the left maxillary antrum. The remaining paranasal sinuses are clear. The mastoid air cells are well pneumatized. Orbits: The bony orbits are grossly intact. IMPRESSION: 1. There is no hemorrhage, mass effect, or evidence of acute territorial ischemia by CT criteria. 2. A focus of high right posterior parietal encephalomalacia is consistent with a site of prior hemorrhage. This is unchanged from previous. ACT 112: Negative or not required by law. Electronically signed by: Ryan Mcfarland M.D. 02/16/2021 5:50 PM Brain MRI 02/20/21 08:37 MRI OF THE BRAIN WITHOUT CONTRAST CLINICAL HISTORY: Dizziness, hx of intracerebral hemorrhage COMPARISON STUDY: MRI of the brain November 16, 2018. Head CT February 16, 2021. TECHNIQUE: Utilizing a 1.5 Yen magnet and dedicated coil, multiplanar, multiecho imaging of the brain was performed without IV contrast. FINDINGS: There are no foci of restricted diffusion to suggest acute infarct. Apparent restricted diffusion within the previously described right parietal subacute to chronic hematoma is artifactual. This focus has inherent T1 hyperintensity with a T2 hypointense rim consistent with hemosiderin deposition. There is adjacent T2 hyperintensity suggestive of encephalomalacia. No acute intracranial hemorrhage is present. Ventricular system is unremarkable. Basal cisterns are patent. There is an old periventricular left frontal lobe infarct. This is unchanged since MRI of November 16, 2018. Flow-voids for the major intracranial vessels are present. Orbits are unremarkable on this unenhanced exam. Scattered white matter T2 hyperintense foci suggest small vessel disease. IMPRESSION: 1. No acute intracranial findings. 2. Expected evolution of a subacute to chronic right parietal lobe intraparenchymal hematoma. No acute intracranial hemorrhage. 3. Old periventricular infarct within the left frontal lobe which is unchanged since MRI of November 16, 2018. ACT 112: Negative or not required by law. Electronically signed by: Deshawn Joiner M.D. 02/20/2021 2:39 PM Hospital Course (1) Lightheadedness: The patient may have had mild vertigo at the onset of her stay. However, the vertigo resolved and became more of a dizziness/lightheadedness feeling. She never had complete response to meclizine during the stay. She would get the dizziness at rest but it was worse with activity. Orthostatic blood pressures were negative. MRI brain negative for acute CVA (resolving R parietal hemorrhagic stroke was seen). Physical therapy performed a vestibular evaluation but could not provoke any vertigo. I reviewed her outpatient medication list and pharmacy record - she has had numerous titrations of her BP meds over the last few months. Clonidine was increased to TID. Hydralazine was added. etc. B12 level low-normal - doubt contributing to her symptoms but certainly worth replacing. TSH wnl. Mag wnl. Cortisol wnl. In the event her blood pressure and her blood pressure medications were contributing to her symptoms the following changes were made - * Amlodipine was changed to 5mg BID to allow smoother BP reduction * Clonidine was changed from TID dosing to BID dosing * Low-dose HCTZ 12.5mg daily was added Finally, psychotropic medication changes were as follows - * discontinuation of buspar (no worsening of anxiety was seen despite such) * decrease of abilfy from 10mg to 5mg With the above changes it seemed that her dizziness improved. She was reporting no nausea and had no GI intolerance to her meals. She was ambulating with the assistance of staff and therapy. (2) History of CVA (cerebrovascular accident): History of recent hemorrhagic CVA. MRI per 11/2020 [facility] records- intraparenchymal right posterior parieto- occipital hematoma with edema with chronic infarct of left parietal lobe. CT head this admission - right posterior parietal infarct consistent with prior hemorrhage, no new bleed. MRI brain negative for acute CVA. She is NOT on asa, plavix, etc. (3) ELLY (acute kidney injury): Cr at admission 2.20 Cr 1.7 at discharge which is baseline for her (4) CKD (chronic kidney disease), stage IV: baseline Cr high 1's, with baseline CrCL in the 20s (5) HTN (hypertension): on complex regimen of carvedilol BID, clonidine TID, hydralazine TID, amlodipine daily. see above in #1. clonidine reduced to BID dosing. amlodipine changed from 10mg qd to 5mg BID for smoother control. added HCTZ low-dose 12.5mg daily. hydralazine and coreg were left as is. With the above changes her BPs were controlled satisfactorily. Renin/aldosterone levels were checked and there was no evidence of hyperaldosteronism. (6) UTI (urinary tract infection): completed 5+ days of antibiotics (7) Hypercholesterolemia: not on statin uncertain why most recent LDL = 127 (2019) consider a recheck in light of multiple CVAs (8) Morbid obesity: BMI 44 (9) Major depressive disorder: cont zoloft 100mg daily cont abilify at dose of 5mg/day cont xanax BID for anxiety buspar placed on hold while here follows with Cheryl Esparza at [facility] and she will follow-up with Ms Esparza after her stay at [facility] (10) GERD (gastroesophageal reflux disease): not on meds for such DVT proph - heparin 5000 TID Initially the patient's insurance did not approve acute inpatient rehab. [id number] was performed and this denial was over-turned fortunately. Patient is transferring to [facility] post-d/c for ongoing rehab. Total Time Total Time Spent Total Time Spent (In Minutes): 45 Discharge Plan Discharge Items Patient Disposition: Transfer Inpatient Rehab Fac Reason For Visit: LIGHTHEADEDNESS Discharge Diagnosis: Dizziness/lightheadedness - suspected to be from medications and high blood pressure Activity: Resume your previous activity Non-emergency contact: Primary Care Provider Call non-emergency contact if: you have any medication questions and your symptoms worsen Follow-up/Referrals: Cheryl Esparza PA-C [Outside Practitioners] - (see Ms Esparza at [facility] within 1--2 weeks of discharge from [facility]) Audie Pan MD [Physician] - ([address] Pan or his PA for h/o stroke) Neri Denson MD [Primary Care Provider] - (within 1 week of discharge from [facility]) Diet: Heart Healthy Addtl Attending Provider Instructions: Mrs Aldana was hospitalized for dizziness/lightheadedness. Early on there was some concern for acute inner ear vertigo (MRI brain did NOT show acute stroke, and this also showed evolution/resolution of her previous right-sided hemorrhagic stroke). However, she had little to no response to meclizine. Orthostatic blood pressures were negative. She did have a UTI early in her stay but this was not felt to be contributing to her symptoms. With adjustments in her blood pressure medications and her psychotropic medications her symptoms gradually improved. Recommendations - 1. check BMP and magnesium in 4-5 days for stability of electrolytes due to initiation of HCTZ. 2. if psychology services are available at [facility] please consult for counseling, med oversight, etc Patient follows with [facility] in [place], Cheryl ROBERSON Pending Studies at Discharge: Yes Studies:: renin and aldosterone levels due to severe high blood pressure Stand-Alone Forms: My [facility] Skilled Items Patient informed of condition?: Yes DNR: No Discharge Level of Care: Acute rehab Communicable Disease: No Discharge Prognosis: Stable Lines: None Urinary Catheter: No Medications and DC Order Prescriptions: New cyanocobalamin (vitamin B-12) 500 mcg Tablet 1,000 mcg PO QAM Qty: 90 RF: 3 meclizine 25 mg Tablet 12.5 mg PO Q6H PRN (Reason: dizziness) Qty: 10 RF: 0 hydrochlorothiazide 25 mg Tablet 12.5 mg PO QAM Qty: 30 RF: 1 heparin, porcine (PF) 5,000 unit/0.5 mL Syringe 5,000 unit subcut Q8 Qty: 30 RF: 0 Continued montelukast 10 mg tablet 10 mg PO HS Qty: 90 RF: 3 calcitriol 0.25 mcg capsule 0.25 mcg PO QAM Qty: 90 RF: 3 cholecalciferol (vitamin D3) [Vitamin D3] 25 mcg (1,000 unit) tablet 50 mcg PO QAM Qty: 90 RF: 3 carvedilol [Coreg] 12.5 mg tablet 12.5 mg PO BID RF: 0 hydralazine 50 mg tablet 50 mg PO TID RF: 0 alprazolam 1 mg tablet 1 mg PO BID RF: 0 sertraline 100 mg tablet 100 mg PO DAILY RF: 0 Changed clonidine HCl 0.1 mg tablet 0.1 mg sublingual BID Qty: 0 RF: 0 amlodipine 10 mg tablet 5 mg PO BID Qty: 0 RF: 0 zolpidem 10 mg tablet 10 mg PO HS PRN (Reason: Sleep) Qty: 0 RF: 0 aripiprazole [Abilify] 10 mg tablet 5 mg PO .QHS Qty: 0 RF: 0 Discontinued buspirone 5 mg tablet 5 mg PO TID RF: 0 Discharge Orders: Discharge Order (Routine); Ordered 03/01/21 Ordered By: Jason Alvarez Admission Data Admit Date/Time: 02/16/21 23:25 Attending Provider: Jason Alvarez Admit Provider: Aron He Primary Care Provider: Neri Denson Other Providers: Cheo Bermudez ; Audie Pan ; [facility] Coding Level of Care Code D/C DAY MANAGEMENT >30 MINS Diagnoses Lightheadedness R42 History of CVA (cerebrovascular accident) Z86.73 ELLY (acute kidney injury) N17.9 CKD (chronic kidney disease), stage IV N18.4 HTN (hypertension) I10 UTI (urinary tract infection) N39.0 Hypercholesterolemia E78.00 Morbid obesity E66.01 Major depressive disorder F32.9 GERD (gastroesophageal reflux disease) K21.9
[2021-03-05 12:51] LABS: Renin Activity 5.19 ng/mL/h (0.25-5.82)
== END 2021-03-01 15:37 ==
LOC: ED 16:14 → EDINP 23:25 → INTOOBSV 23:25 → SUATTDRO 23:25 → 2N 02-17 01:08

== ENCOUNTER 2021-04-10 16:49 | Inpatient (IN) ==
[2021-04-10] MEDS ORDERED: MoRPHine SULFATE 10 MG/ML CARP/VIAL IM STA (16:58)
[2021-04-10] MEDS ORDERED: LIDOCAINE 1% LOCAL 20 ML VIAL INJ ONE (17:12)
--- NOTE | 2021-04-10 17:12 | Emergency Department Note ---
Impression & Plan Closed fracture of right proximal humerus ADMIT ED Provider Note HPI: The patient is a 76-year-old female with morbid obesity, who presents the emergency department after a fall.Patient states that she slipped on some stairs going up to friend's house. She states that she fell on her right shoulder and had acute right shoulder pain after the fall. She denies hitting her head, denies any other focal complaint of pain. On arrival the patient is stable, she is in mild distress secondary to pain. ROS: - MSK: R shoulder pain *10 point review systems was conducted and is otherwise negative unless stated above *Outpatient medications and allergy history reviewed PE: General: Alert, morbidly obese, NAD HEENT: Normocephalic, atraumatic Eyes: Extraocular eye movement is intact, no scleral erythema Pulmonary: Clear to auscultation bilaterally, no wheezing Cardio: Regular rate and rhythm GI: Abdomen is soft, nontender : No suprapubic tenderness MSK: No evidence of trauma or malformation of the extremities, no edema Skin: No evidence of rash Neuro: Alert, no focal deficits Psychiatric: Cooperative traffic operations engineer: - An order was placed for continuous cardiac monitoring - Patient was noted to be in sinus rhythm with rate of 75 R shoulder D/L reduction: - Verbal consent was obtained from the patient - 10cc 1% lidocaine was injected into the joint space of the R shoulder following aspiration of a small amount of synovial fluid - Gentle traction was applied with external rotation - Subsequent traction-counter traction was then performed without obvious reduction achieved - Repeat x-ray showed continued anterior d/l - Neurovascular and motor function remained in tact on re-evaluation following multiple reduction attempts Procedural sedation: Patient was placed on a anesthesiologist assistant certified, continuous pulse oximetry, end-tidal capnography was placed on the patient. Patient was preoxygenated to 99% via nonrebreather mask. Consent was obtained for sedation verbally by the patient and also written by the patient's daughter at the bedside. ASA class II Mallampati score 2 Last oral intake 04/10/2021 at 0800 Patient underwent sedation with a 100 mg dose of IV propofol, patient tolerated the bolus well, please see procedure note for details in regards to the orthopedic dislocation/reduction attempt. Total time of sedation: 10 minutes Following sedation patient became more alert, she is able to tell me the month and the year, she is able to speak to me clearly, she is returned to her baseline on my reassessment and tolerated the sedation well without any apnea or complications. Medical Decision Making: Patient presented to the emergency department after mechanical fall, states that she had acute pain in her right shoulder area. X-ray imaging does confirm evidence of an anterior right shoulder dislocation, there is also evidence of a posterior humeral head fracture with a fracture fragment measuring approximately 3.5 cm. I did discuss the patient's presentation with on-call orthopedic surgery, Dr. Pittman, who did recommend attempt at reduction in the ED. This was attempted following a local injection of 1% lidocaine into the joint space, patient initially tolerated this reduction attempt well, she had some increased pain during the attempted reduction, landmarks were difficult given the patient's body habitus and reduction was ultimately unsuccessful. At this time I did think that it was prudent to sedate the patient so that we could get a more adequate reduction attempt, follow-up x-ray imaging does show persistent anterior dislocation. I again discussed the case with Dr. Pittman of on-call orthopedics who graciously agreed to evaluate the patient here in the ED at the bedside for an attempt at reduction under sedation. Patient was consented for the procedure and for sedation by the patient's daughter given her history of CVA, patient did undergo sedation with propofol with orthopedics at the bedside, Dr. Pittman did manipulate the patient's right shoulder however secondary to the fracture this attempt at reduction was also ultimately unsuccessful. Follow-up x-ray imaging and CT imaging does confirm that the patient does have comminuted fracture of the proximal right humerus. This is likely the reason why reduction attempts were unsuccessful. On r eassessment the patient is complaining of some pain of her right shoulder but otherwise has neurovascular and motor function intact distally in the right hand, she was given additional morphine dose here in the ED for pain. I discussed the CT imaging findings with Dr. Pittman, at this time it is thought that the patient would benefit from surgery tomorrow given her acute pain, the degree of the fracture, and difficulty managing this as an outpatient while waiting for surgery. Patient and her now at the bedside are in agreement to this plan and state they do prefer admission for surgical intervention. Given the patient's age and comorbidities I discussed the case with the on-call hospitalist, Dr. Dinero, who accepted the patient to a med/surg bed for further care as an inpatient pending orthopedic surgery tomorrow for her right closed proximal humerus fracture. Diagnosis: 1. Fracture/dislocation of the right shoulder and proximal humerus 2. Mechanical fall 3. History of hypertension 4. History of CVA 5. Morbid obesity Disposition: Admission George Rivas DO Emergency Medicine Past Med/Surg History Medical History Anxiety Depression GERD (gastroesophageal reflux disease) HTN (hypertension) Hypercholesterolemia Irregular heart beats follows with Dr. 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) Stroke Wheezing intermittent---reason for inhalers Surgical History History of bilateral tubal ligation History of cholecystectomy History of colonoscopy History of dilatation and curettage History of esophagogastroduodenoscopy (EGD) History of right knee joint replacement History of tooth extraction History of total left knee replacement (TKR) Family History Mother , age 82 of complications of diabetes Heart disease Stroke Family history of diabetes mellitus Grandmother (Maternal) Family history of diabetes mellitus Father , age 80 of liver issues Liver disease Other No family history of adverse response to anesthesia Social History Smoking Status: Never smoker Second Hand Exposure: No; Hx Alcohol Use: No Hx Substance Use: No Preferred Language: Afghan Communication Ability: Effective Cash Poster Required: No Beliefs That Will Affect Care: None marital status: Current Living Situation: Spouse current occupational status: retired 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 Feels Safe at Home: Yes Assistive Devices: Walker Allergies Allergies Allergy/AdvReac Type Severity Reaction Status Date / Time fentanyl Allergy Intermediate extreme Verified 04/10/21 22:46 confusion/hallucination amoxicillin Allergy Mild Hives Verified 04/10/21 22:46 Penicillins Allergy Mild RASH TO Verified 04/10/21 22:46 AMOXIL, NO RESP PROBLEMS Home Meds Home Medications Medication Instructions Recorded Confirmed alprazolam 1 mg tablet 1 mg PO AMHS 07/19/18 04/10/21 carvedilol 12.5 mg tablet (Coreg) 12.5 mg PO AMHS 01/05/21 04/10/21 hydralazine 50 mg tablet 50 mg PO TID 01/05/21 04/10/21 sertraline 100 mg tablet 200 mg PO DAILY 02/16/21 04/10/21 albuterol sulfate 90 mcg/actuation 2 puff INHALATION Q4 PRN 04/10/21 04/10/21 aerosol inhaler amlodipine 10 mg tablet 10 mg PO DAILY 04/10/21 04/10/21 aripiprazole 10 mg tablet (Abilify) 10 mg PO HS 04/10/21 04/10/21 buspirone 15 mg tablet 15 mg PO TID 04/10/21 04/10/21 clonidine HCl 0.1 mg tablet 0.1 mg PO [facility] 04/10/21 04/10/21 fluticasone propionate 100 1 inh INHALATION BID PRN 04/10/21 04/10/21 mcg/actuation blister powder for inhalation (Flovent Diskus) zolpidem 10 mg tablet 10 mg PO HS 04/10/21 04/10/21 Previous Rx's Medication Instructions Recorded montelukast 10 mg tablet 10 mg PO HS #90 tab 02/17/19 cholecalciferol (vitamin D3) 25 50 mcg PO QAM #90 tab 09/02/20 mcg (1,000 unit) tablet (Vitamin D3) aspirin 81 mg tablet,delayed 81 mg PO DAILY #90 tab 04/06/21 release calcitriol 0.25 mcg capsule 0.25 mcg PO QAM #90 cap 04/06/21 Results & Data (ED) Vital Signs Vital Signs - 24 hr 04/10/21 16:53 04/10/21 17:00 04/10/21 17:10 Temperature 36.6 C Temperature Source Oral Pulse Rate 89 102 H 93 H Pulse Rate [Left] Pulse Rhythm [Left] Pulse Strength [Left] Respiratory Rate 20 26 H 27 H Respiratory Effort / Characteristics Non-Labored Spontaneous Respiratory Depth Normal Respiratory Pattern Regular Blood Pressure 201/97 H Blood Pressure [Left Arm] Blood Pressure Mean 131 Blood Pressure Mean [Left Arm] Blood Pressure Position Sitting Pulse Oximetry 94 94 95 Oxygen Delivery Method Room Air Oxygen Flow Rate Sepsis Recent Fever Within 48 Hours No Sepsis New/Unexplained Change in Mental Status No Sepsis Action Taken by Nursing No Action Required End-Tidal CO2 End Tidal CO2 (18-54mmHg) 04/10/21 17:17 04/10/21 17:18 04/10/21 17:26 Temperature Temperature Source Pulse Rate 75 92 H Pulse Rate [Left] 89 Pulse Rhythm [Left] Regular Pulse Strength [Left] Normal Respiratory Rate 18 24 19 Respiratory Effort / Characteristics Non-Labored Respiratory Depth Normal Respiratory Pattern Regular Blood Pressure 200/68 H 175/70 H Blood Pressure [Left Arm] 170/70 H Blood Pressure Mean 112 105 Blood Pressure Mean [Left Arm] 103 Blood Pressure Position Pulse Oximetry 93 96 98 Oxygen Delivery Method Room Air Oxygen Flow Rate Sepsis Recent Fever Within 48 Hours Sepsis New/Unexplained Change in Mental Status Sepsis Action Taken by Nursing End-Tidal CO2 End Tidal CO2 (18-54mmHg) 04/10/21 18:33 04/10/21 18:40 04/10/21 18:50 Temperature Temperature Source Pulse Rate 80 81 82 Pulse Rate [Left] Pulse Rhythm [Left] Pulse Strength [Left] Respiratory Rate 27 H 20 25 H Respiratory Effort / Characteristics Respiratory Depth Respiratory Pattern Blood Pressure Blood Pressure [Left Arm] Blood Pressure Mean Blood Pressure Mean [Left Arm] Blood Pressure Position Pulse Oximetry Oxygen Delivery Method Oxygen Flow Rate Sepsis Recent Fever Within 48 Hours Sepsis New/Unexplained Change in Mental Status Sepsis Action Taken by Nursing End-Tidal CO2 End Tidal CO2 (18-54mmHg) 04/10/21 19:00 04/10/21 19:10 04/10/21 19:20 Temperature Temperature Source Pulse Rate 86 89 81 Pulse Rate [Left] Pulse Rhythm [Left] Pulse Strength [Left] Respiratory Rate 25 H Respiratory Effort / Characteristics Respiratory Depth Respiratory Pattern Blood Pressure Blood Pressure [Left Arm] Blood Pressure Mean Blood Pressure Mean [Left Arm] Blood Pressure Position Pulse Oximetry Oxygen Delivery Method Oxygen Flow Rate Sepsis Recent Fever Within 48 Hours Sepsis New/Unexplained Change in Mental Status Sepsis Action Taken by Nursing End-Tidal CO2 End Tidal CO2 (18-54mmHg) 04/10/21 19:30 04/10/21 19:32 04/10/21 19:40 Temperature Temperature Source Pulse Rate 82 84 84 Pulse Rate [Left] Pulse Rhythm [Left] Pulse Strength [Left] Respiratory Rate 22 21 Respiratory Effort / Characteristics Respiratory Depth Respiratory Pattern Blood Pressure 191/73 H Blood Pressure [Left Arm] Blood Pressure Mean 112 Blood Pressure Mean [Left Arm] Blood Pressure Position Pulse Oximetry 95 98 Oxygen Delivery Method Non-rebreather Oxygen Flow Rate 15 Sepsis Recent Fever Within 48 Hours Sepsis New/Unexplained Change in Mental Status Sepsis Action Taken by Nursing End-Tidal CO2 32 End Tidal CO2 (18-54mmHg) 04/10/21 19:41 04/10/21 19:49 04/10/21 19:50 Temperature Temperature Source Pulse Rate 81 65 72 Pulse Rate [Left] Pulse Rhythm [Left] Pulse Strength [Left] Respiratory Rate 23 24 24 Respiratory Effort / Characteristics Non-Labored Respiratory Depth Normal Respiratory Pattern Regular Blood Pressure 151/68 H Blood Pressure [Left Arm] 151/68 H Blood Pressure Mean 95 Blood Pressure Mean [Left Arm] Blood Pressure Position Pulse Oximetry 98 98 98 Oxygen Delivery Method Non-rebreather Non-rebreather Non-rebreather Oxygen Flow Rate 15 15 15 Sepsis Recent Fever Within 48 Hours Sepsis New/Unexplained Change in Mental Status Sepsis Action Taken by Nursing End-Tidal CO2 25 27 End Tidal CO2 (18-54mmHg) 32 04/10/21 19:56 04/10/21 20:00 04/10/21 20:05 Temperature Temperature Source Pulse Rate 75 75 83 Pulse Rate [Left] Pulse Rhythm [Left] Pulse Strength [Left] Respiratory Rate 26 H 24 22 Respiratory Effort / Characteristics Respiratory Depth Respiratory Pattern Blood Pressure 168/89 H 163/91 H 160/103 H Blood Pressure [Left Arm] Blood Pressure Mean 115 115 122 Blood Pressure Mean [Left Arm] Blood Pressure Position Pulse Oximetry 96 99 99 Oxygen Delivery Method Non-rebreather Non-rebreather Non-rebreather Oxygen Flow Rate 15 15 15 Sepsis Recent Fever Within 48 Hours Sepsis New/Unexplained Change in Mental Status Sepsis Action Taken by Nursing End-Tidal CO2 26 31 32 End Tidal CO2 (18-54mmHg) 04/10/21 20:11 04/10/21 20:12 04/10/21 20:30 Temperature Temperature Source Pulse Rate 81 79 85 Pulse Rate [Left] Pulse Rhythm [Left] Pulse Strength [Left] Respiratory Rate 27 H 22 25 H Respiratory Effort / Characteristics Respiratory Depth Respiratory Pattern Blood Pressure 186/73 H 186/73 H 187/86 H Blood Pressure [Left Arm] Blood Pressure Mean 110 110 119 Blood Pressure Mean [Left Arm] Blood Pressure Position Pulse Oximetry 99 99 93 Oxygen Delivery Method Room Air Non-rebreather Room Air Oxygen Flow Rate 15 Sepsis Recent Fever Within 48 Hours Sepsis New/Unexplained Change in Mental Status Sepsis Action Taken by Nursing End-Tidal CO2 32 31 31 End Tidal CO2 (18-54mmHg) 04/10/21 21:18 04/10/21 21:30 04/10/21 22:00 Temperature Temperature Source Pulse Rate 84 81 75 Pulse Rate [Left] Pulse Rhythm [Left] Pulse Strength [Left] Respiratory Rate Respiratory Effort / Characteristics Respiratory Depth Respiratory Pattern Blood Pressure Blood Pressure [Left Arm] Blood Pressure Mean Blood Pressure Mean [Left Arm] Blood Pressure Position Pulse Oximetry 93 92 Oxygen Delivery Method Room Air Room Air Oxygen Flow Rate Sepsis Recent Fever Within 48 Hours Sepsis New/Unexplained Change in Mental Status Sepsis Action Taken by Nursing End-Tidal CO2 End Tidal CO2 (18-54mmHg) 04/10/21 22:03 04/10/21 22:21 Temperature Temperature Source Pulse Rate 77 Pulse Rate [Left] 75 Pulse Rhythm [Left] Pulse Strength [Left] Respiratory Rate 20 Respiratory Effort / Characteristics Respiratory Depth Respiratory Pattern Blood Pressure 179/66 H Blood Pressure [Left Arm] 179/66 H Blood Pressure Mean 103 Blood Pressure Mean [Left Arm] 103 Blood Pressure Position Pulse Oximetry 94 90 Oxygen Delivery Method Room Air Room Air Oxygen Flow Rate Sepsis Recent Fever Within 48 Hours Sepsis New/Unexplained Change in Mental Status Sepsis Action Taken by Nursing End-Tidal CO2 End Tidal CO2 (18-54mmHg) Laboratory Data Result diagrams: 04/11/21 05:11 04/11/21 05:11 Lab Results 04/10/21 04/10/21 Range/Units 19:28 19:28 WBC 12.22 H (4.8-10.8) K/uL RBC 3.69 L (4.2-5.4) M/uL Hgb 11.5 L (12.0-16.0) g/dL Hct 36.2 L (37-47) % MCV 98.1 (80-100) fL MCH 31.2 (25-34) pg MCHC 31.8 L (32-36) g/dL RDW Std Deviation 52.8 H (36.4-46.3) fL RDW Coeff of Chauncey 14.7 H (11.5-14.5) % Plt Count 203 (130-400) K/uL MPV 9.5 (7.4-10.4) fL Immature Gran % (Auto) 0.8 % Neut % (Auto) 76.6 % Lymph % (Auto) 13.3 % Elbert % (Auto) 7.4 % Eos % (Auto) 1.7 % Baso % (Auto) 0.2 % Neut # (Auto) 9.36 H (1.4-6.5) K/uL Lymph # (Auto) 1.62 (1.2-3.4) K/uL Elbert # (Auto) 0.90 H (0.11-0.59) K/uL Eos # (Auto) 0.21 (0-0.5) K/uL Baso # (Auto) 0.03 (0-0.2) K/uL Immature Gran # (Auto) 0.10 H (0.00-0.02) K/uL Sodium 138 (136-145) mmol/L Potassium 3.8 (3.5-5.1) mmol/L Chloride 106 (98-107) mmol/L Carbon Dioxide 26 (21-32) mmol/L Anion Gap 6.0 (3-11) BUN 31 H (7-18) mg/dl Creatinine 1.90 H (0.6-1.2) mg/dl Est Cr Clr Drug Dosing 30.7 ml/min Est GFR ( Amer) 29.6 ml/min Est GFR (Non-Af Amer) 25.5 ml/min BUN/Creatinine Ratio 16.2 (10-20) Glucose 123 H (70-99) mg/dl Calcium 9.6 (8.5-10.1) mg/dl Total Bilirubin 0.6 (0.2-1) mg/dl AST 49 H (15-37) U/L ALT 41 (12-78) Alkaline Phosphatase 49 (45-117) U/L Total Protein 7.2 (6.4-8.2) gm/dl Albumin 3.5 (3.4-5.0) gm/dl Globulin 3.7 (2.5-4.0) gm/dl Albumin/Globulin Ratio 0.9 (0.9-2) Administered Medications Alprazolam (Alprazolam 0.5 Mg Tablet) 1 mg PO BID MONSE Stop: 05/11/21 08:59 Last Admin: 04/11/21 10:27 Dose: Not Given Documented by: [id number] Amlodipine Besylate (Amlodipine Besylate 5 Mg Tab) 10 mg PO DAILY MONSE Stop: 05/11/21 08:59 Last Admin: 04/11/21 10:27 Dose: Not Given Documented by: [id number] Aspirin (Aspirin 81 Mg Ectab) 81 mg PO DAILY MONSE Stop: 05/11/21 08:59 Last Admin: 04/11/21 10:27 Dose: Not Given Documented by: [id number] Buspirone HCl (Buspirone 15 Mg Tab) 15 mg PO TID MONSE Stop: 05/11/21 08:59 Last Admin: 04/11/21 10:28 Dose: Not Given Documented by: [id number] Calcitriol (Calcitriol 0.25 Mcg Capsule) 0.25 mcg PO QAM MONSE Stop: 05/11/21 08:59 Last Admin: 04/11/21 10:28 Dose: Not Given Documented by: [id number] Carvedilol (Carvedilol 12.5 Mg Tab) 12.5 mg PO AMHS [facility] Stop: 05/11/21 08:59 Last Admin: 04/11/21 10:28 Dose: Not Given Documented by: [id number] Clonidine HCl (Clonidine Hcl 0.1 Mg Tab) 0.1 mg PO BID MONSE Stop: 05/11/21 08:59 Last Admin: 04/11/21 10:28 Dose: Not Given Documented by: [id number] Hydralazine HCl (Hydralazine Tab 50 Mg Tab) 50 mg PO TID [facility] Stop: 05/11/21 08:59 Last Admin: 04/11/21 10:28 Dose: Not Given Documented by: [id number] Sodium Chloride (Nss 1000ml) 1,000 mls @ 80 mls/hr IV .[id number] [facility] Stop: 05/11/21 00:04 Last Admin: 04/11/21 00:47 Dose: 80 mls/hr Documented by: [id number] Morphine Sulfate (Morphine Sulfate 4 Mg/Ml 1 Ml Carp\Vial) 4 mg IV Q2H PRN PRN Reason: Pain Stop: 04/25/21 00:04 Last Admin: 04/11/21 03:54 Dose: 4 mg Documented by: [id number] Admin: 04/11/21 01:00 Dose: 4 mg Documented by: [id number] Ondansetron HCl (Ondansetron Inj 2 Mg/Ml 2 Ml Vial) 4 mg IV Q6H PRN PRN Reason: Nausea Stop: 05/11/21 00:04 Last Admin: 04/11/21 03:58 Dose: 4 mg Documented by: [id number] Sertraline HCl (Sertraline Hcl 100 Mg Tablet) 200 mg PO DAILY MONSE Stop: 05/11/21 08:59 Last Admin: 04/11/21 10:28 Dose: Not Given Documented by: [id number] Discontinued Medications Lidocaine HCl (Lidocaine 1% Local 20 Ml Vial) 10 ml INJ NOW ONE Stop: 04/10/21 17:13 Last Admin: 04/10/21 17:15 Dose: 10 ml Documented by: [id number] Morphine Sulfate (Morphine Sulfate 10 Mg/Ml Carp/Vial) 6 mg IM NOW STA Stop: 04/10/21 16:59 Last Admin: 04/10/21 17:10 Dose: 6 mg Documented by: [id number] Morphine Sulfate (Morphine Sulfate 4 Mg/Ml 1 Ml Carp\Vial) Confirm Administered Dose 4 mg .ROUTE .STK-MED ONE Stop: 04/10/21 18:19 Last Admin: 04/10/21 18:20 Dose: 4 mg Documented by: [id number] Morphine Sulfate (Morphine Sulfate 4 Mg/Ml 1 Ml Carp\Vial) 4 mg IV NOW STA Stop: 04/10/21 21:47 Last Admin: 04/10/21 21:52 Dose: 4 mg Documented by: [id number] Propofol (Propofol Iv Emulsion 10 Mg/Ml 20 Ml Vial) 200 mg IV NOW STA Stop: 04/10/21 18:57 Last Admin: 04/10/21 19:57 Dose: 100 mg Documented by: [id number] Cosigned by: [id number] Imaging Data Radiologist's Impression: Humerus X-Ray 04/10/21 16:57 XR shoulder RT min 2V routine, XR humerus RT 2V HISTORY: 76 years-old Female fall acute pain of the right shoulder and humerus status post fall COMPARISON: Chest radiograph 02/16/2021 TECHNIQUE: 2 views of the right shoulder with 2 views of the right humerus FINDINGS: SHOULDER: Anteroinferior dislocation of the humerus within a subcoracoid location. There is a least mild glenohumeral and AC joint osteoarthritis. A bone fragment is noted along the posterior inferior margin of the glenoid. HUMERUS: 3.5 cm bone fragment along the inferior margin of the glenoid suggestive of a displaced proximal humeral fracture. IMPRESSION: 1. Subcoracoid anteroinferior dislocation of the right glenohumeral joint. 2. Acute and displaced fracture of the posterior humeral head with a 3.5 cm bone fragment. ACT 112: Negative or not required by law. The above report was generated using voice recognition software. It may contain grammatical, syntax or spelling errors. Electronically signed by: Madhu Barbosa M.D. 04/10/2021 5:21 PM Shoulder X-Ray 04/10/21 16:57 XR shoulder RT min 2V routine, XR humerus RT 2V HISTORY: 76 years-old Female fall acute pain of the right shoulder and humerus status post fall COMPARISON: Chest radiograph 02/16/2021 TECHNIQUE: 2 views of the right shoulder with 2 views of the right humerus FINDINGS: SHOULDER: Anteroinferior dislocation of the humerus within a subcoracoid location. There is a least mild glenohumeral and AC joint osteoarthritis. A bone fragment is noted along the posterior inferior margin of the glenoid. HUMERUS: 3.5 cm bone fragment along the inferior margin of the glenoid suggestive of a displaced proximal humeral fracture. IMPRESSION: 1. Subcoracoid anteroinferior dislocation of the right glenohumeral joint. 2. Acute and displaced fracture of the posterior humeral head with a 3.5 cm bone fragment. ACT 112: Negative or not required by law. The above report was generated using voice recognition software. It may contain grammatical, syntax or spelling errors. Electronically signed by: Madhu Barbosa M.D. 04/10/2021 5:21 PM Shoulder X-Ray 04/10/21 18:29 XR shoulder RT min 2V routine CLINICAL HISTORY: Attempted reduction of anterior shoulder dislocation. COMPARISON STUDY: No previous studies for comparison. TECHNIQUE: 3 right shoulder views FINDINGS: Radiographs were obtained after 2 attempts to reduce anterior shoulder dislocation. The humeral head remains anteriorly dislocated in relation to the glenoid. No definite fracture is seen. IMPRESSION: Humeral head remains anteriorly dislocated despite 2 attempts to red uce the patient's anterior dislocation. ACT 112: Negative or not required by law. Electronically signed by: Magdi Sandoval M.D. 04/10/2021 6:[address] 04/10/21 20:01 CT shoulder RT wo con CLINICAL HISTORY: Right shoulder dislocation. Evaluate for shoulder fracture. COMPARISON STUDY: Standard radiographs from 04/10/2021 CT DOSE: 452.43 mGycm TECHNIQUE: Standard CT of the right shoulder is performed without IV contrast. Multiplanar reconstruction is performed. A dose lowering technique was utilized adhering to the principles of ALARA. FINDINGS: Bones: There is a comminuted fracture/dislocation of the humeral head and neck in relation to the glenoid. The humeral head is anteriorly dislocated and impacted into the glenoid anteriorly. Numerous comminuted fracture fragments are present involving the humeral head and neck. This is most likely the reason why that the dislocation could not be reduced. There are no lytic or blastic lesions. Joints: Degenerative changes are present involving the acromioclavicular joint. Soft tissues: There is soft tissue swelling surrounding the shoulder joint. There are no focal fluid collections. IMPRESSION: Comminuted fracture/dislocation of the humeral head and neck in relation to the glenoid with impaction present . This is most likely the reason why the dislocation has not been reduced. ACT 112: Negative or not required by law. Electronically signed by: Magdi Sandoval M.D. 04/10/2021 9:13 PM Shoulder X-Ray 04/10/21 20:08 XR shoulder RT min 2V routine CLINICAL HISTORY: CONSCIOUS SEDATION REDUCTION ATTEMPT. COMPARISON STUDY: 04/10/2021 TECHNIQUE: 2 right shoulder views FINDINGS: Compared to the previous examination, there is a persistent anterior subcoracoid dislocation of the humeral head in relation to the glenoid. IMPRESSION: Persistent anterior subcoracoid dislocation of the humeral head. ACT 112: Negative or not required by law. Electronically signed by: Magdi Sandoval M.D. 04/10/2021 8:13 PM Discharge Plan Visit Data Chief Complaint: Fall Stated Complaint: Fall ED Provider: George Rivas Discharge Problem: Closed fracture of right proximal humerus Discharge Instructions Interventions: ED Discharge Assessment Last Done: 04/11/21 00:03 Discharge Problem: Closed fracture of right proximal humerus Qualifiers: Encounter type: initial encounter Fracture morphology: other fracture Fracture alignment: displaced Qualified Code(s): S42.291A - Other displaced fracture of upper end of right humerus, initial encounter for closed fracture
--- NOTE | 2021-04-10 17:22 | XRay Report ---
XR shoulder RT min 2V routine, XR humerus RT 2V HISTORY: 76 years-old Female fall acute pain of the right shoulder and humerus status post fall COMPARISON: Chest radiograph 02/16/2021 TECHNIQUE: 2 views of the right shoulder with 2 views of the right humerus FINDINGS: SHOULDER: Anteroinferior dislocation of the humerus within a subcoracoid location. There is a least mild glenoh umeral and AC joint osteoarthritis. A bone fragment is noted along the posterior inferior margin of t he glenoid. HUMERUS: 3.5 cm bone fragment along the inferior margin of the glenoid suggestive of a displaced proximal zeus ral fracture. IMPRESSION: 1. Subcoracoid anteroinferior dislocation of the right glenohumeral joint. 2. Acute and displaced fracture of the posterior humeral head with a 3.5 cm bone fragment. ACT 112: Negative or not required by law. The above report was generated using voice recognition software. It may contain grammatical, syntax o r spelling errors. Electronically signed by: Madhu Barbosa M.D. 04/10/2021 5:21 PM
[2021-04-10] MEDS ORDERED: MoRPHine SULFATE 4 MG/ML 1 ML CARP\\VIAL ONE (18:18)
--- NOTE | 2021-04-10 18:48 | XRay Report ---
XR shoulder RT min 2V routine CLINICAL HISTORY: Attempted reduction of anterior shoulder dislocation. COMPARISON STUDY: No previous studies for comparison. TECHNIQUE: 3 right shoulder views FINDINGS: Radiographs were obtained after 2 attempts to reduce anterior shoulder dislocation. The hum eral head remains anteriorly dislocated in relation to the glenoid. No definite fracture is seen. IMPRESSION: Humeral head remains anteriorly dislocated despite 2 attempts to reduce the patient's ant erior dislocation. ACT 112: Negative or not required by law. Electronically signed by: Magdi Sandoval M.D. 04/10/2021 6:47 PM
[2021-04-10] MEDS ORDERED: PROPOFOL IV EMULSION 10 MG/ML 20 ML VIAL IV STA (18:56)
--- NOTE | 2021-04-10 19:06 | Pre Anesthesia Assessment ---
Date of Service April 10, 2021 Pre Sedation Assessment Vital Signs Temp Pulse Pulse Resp BP BP Pulse Ox 04/11/21 05:58 37 C 96 H 20 175/79 H 95 04/11/21 03:22 86 20 162/68 H 91 04/11/21 00:51 75 20 160/78 H 92 04/11/21 00:07 71 20 159/69 H 92 04/10/21 23:56 70 20 161/58 H 91 04/10/21 22:30 72 166/62 H 92 04/10/21 22:21 75 20 179/66 H 90 04/10/21 22:03 77 179/66 H 94 04/10/21 22:00 75 92 04/10/21 21:30 81 04/10/21 21:18 84 93 04/10/21 20:30 85 25 H 187/86 H 93 04/10/21 20:12 79 22 186/73 H 99 04/10/21 20:11 81 27 H 186/73 H 99 04/10/21 20:05 83 22 160/103 H 99 04/10/21 20:00 75 24 163/91 H 99 04/10/21 19:56 75 26 H 168/89 H 96 04/10/21 19:50 72 24 98 04/10/21 19:49 65 24 151/68 H 98 04/10/21 19:41 81 23 151/68 H 98 04/10/21 19:40 84 21 98 04/10/21 19:32 84 22 191/73 H 95 04/10/21 19:30 82 04/10/21 19:20 81 04/10/21 19:10 89 04/10/21 19:00 86 25 H 04/10/21 18:50 82 25 H 04/10/21 18:40 81 20 04/10/21 18:33 80 27 H 04/10/21 17:26 89 19 170/70 H 98 04/10/21 17:18 92 H 24 175/70 H 96 04/10/21 17:17 75 18 200/68 H 93 04/10/21 17:10 93 H 27 H 95 04/10/21 17:00 102 H 26 H 94 04/10/21 16:53 36.6 C 89 20 201/97 H 94 Pulse Ox 04/11/21 05:58 04/11/21 03:22 04/11/21 00:51 04/11/21 00:07 92 04/10/21 23:56 04/10/21 22:30 04/10/21 22:21 04/10/21 22:03 04/10/21 22:00 04/10/21 21:30 04/10/21 21:18 04/10/21 20:30 04/10/21 20:12 04/10/21 20:11 04/10/21 20:05 04/10/21 20:00 04/10/21 19:56 04/10/21 19:50 04/10/21 19:49 04/10/21 19:41 04/10/21 19:40 04/10/21 19:32 04/10/21 19:30 04/10/21 19:20 04/10/21 19:10 04/10/21 19:00 04/10/21 18:50 04/10/21 18:40 04/10/21 18:33 04/10/21 17:26 04/10/21 17:18 04/10/21 17:17 04/10/21 17:10 04/10/21 17:00 04/10/21 16:53 Cardiovascular RRR, no murmur, no edema + regular rate and + regular rhythm + capillary refill normal Additional Comments: Capillary refill less than 2 seconds in the digits of the right upper extremity Respiratory normal respiratory effort, lungs clear to auscultation + clear to auscultation bilaterally Pre-Sedation Airway Assessment Smoking Status: Never smoker Short, Thick Neck: Yes II II NPO Status Date of Last Intake of Solid Food: 04/10/21 Time of Last Intake of Solid Foods: 08:00 Notes The planned sedation has been discussed with the patient. Informed Consent was obtained. I have identified the patient, determined the appropriateness of sedation and have assessed the patient immediately prior to the procedure. All medicine(s) and interventions are by my order.
[2021-04-10 19:41] LABS: Basophils # (auto) 0.03 K/uL (0-0.2); Basophils % (auto) 0.2 %; Eosinophils # (auto) 0.21 K/uL (0-0.5); Eosinophils % (auto) 1.7 %; Hematocrit (blood only) 36.2 % (37-47); Hemoglobin 11.5 g/dL (12.0-16.0); Immature Granulocytes % (auto) 0.8 %; Lymphocytes # (auto) 1.62 K/uL (1.2-3.4); Lymphocytes % (auto) 13.3 %; Mean Corpuscular Hemoglobin 31.2 pg (25-34); Mean Corpuscular Hgb Conc 31.8 g/dL (32-36); Mean Corpuscular Volume 98.1 fL (80-100); Mean Platelet Volume 9.5 fL (7.4-10.4); Monocytes % (auto) 7.4 %; Neutrophils # (auto) 9.36 K/uL (1.4-6.5); Neutrophils % (auto) 76.6 %; Platelet Count 203 K/uL (130-400); RDW Coefficient of Variation 14.7 % (11.5-14.5); RDW Standard Deviation 52.8 fL (36.4-46.3); Red Blood Count 3.69 M/uL (4.2-5.4); White Blood Count 12.22 K/uL (4.8-10.8)
[2021-04-10 19:59] LABS: Albumin Level 3.5 gm/dl (3.4-5.0); BUN Creatinine Ratio 16.2 (10-20); Calcium 9.6 mg/dl (8.5-10.1); Creatinine Clr Calc Pharmacy 30.7 ml/min; Est GFR (African American) 29.6 ml/min; Est GFR (Non-African American) 25.5 ml/min; Potassium 3.8 mmol/L (3.5-5.1)
[2021-04-10 20:02] LABS: Albumin Globulin Ratio 0.9 (0.9-2); Bilirubin,Total 0.6 mg/dl (0.2-1); Globulin 3.7 gm/dl (2.5-4.0); Total Protein 7.2 gm/dl (6.4-8.2)
--- NOTE | 2021-04-10 20:15 | XRay Report ---
XR shoulder RT min 2V routine CLINICAL HISTORY: CONSCIOUS SEDATION REDUCTION ATTEMPT. COMPARISON STUDY: 04/10/2021 TECHNIQUE: 2 right shoulder views FINDINGS: Compared to the previous examination, there is a persistent anterior subcoracoid dislocatio n of the humeral head in relation to the glenoid. IMPRESSION: Persistent anterior subcoracoid dislocation of the humeral head. ACT 112: Negative or not required by law. Electronically signed by: Magdi Sandoval M.D. 04/10/2021 8:13 PM
--- NOTE | 2021-04-10 21:14 | CT Scan Report ---
CT shoulder RT wo con CLINICAL HISTORY: Right shoulder dislocation. Evaluate for shoulder fracture. COMPARISON STUDY: Standard radiographs from 04/10/2021 CT DOSE: 452.43 mGycm TECHNIQUE: Standard CT of the right shoulder is performed without IV contrast. Multiplanar reconstruc tion is performed. A dose lowering technique was utilized adhering to the principles of ALARA. FINDINGS: Bones: There is a comminuted fracture/dislocation of the humeral head and neck in relation to the gle noid. The humeral head is anteriorly dislocated and impacted into the glenoid anteriorly. Numerous co mminuted fracture fragments are present involving the humeral head and neck. This is most likely the reason why that the dislocation could not be reduced. There are no lytic or blastic lesions. Joints: Degenerative changes are present involving the acromioclavicular joint. Soft tissues: There is soft tissue swelling surrounding the shoulder joint. There are no focal fluid collections. IMPRESSION: Comminuted fracture/dislocation of the humeral head and neck in relation to the glenoid w ith impaction present . This is most likely the reason why the dislocation has not been reduced. ACT 112: Negative or not required by law. Electronically signed by: Magdi Sandoval M.D. 04/10/2021 9:13 PM
[2021-04-10] MEDS ORDERED: MoRPHine SULFATE 4 MG/ML 1 ML CARP\\VIAL IV STA (21:46)
--- NOTE | 2021-04-10 22:31 | History & Physical Report ---
Date of Service April 10, 2021 Assessment & Plan (1) Closed fracture of right proximal humerus: Plan: Kim Aldana is a 76y/o F w/ PMH significant for recent CVA (11/2020), hypertension, hypercholesterolemia, depression, and GERD; who presents following a fall while going up stairs earlier today. Closed right proximal humerus fracture: -XR demonstrating comminuted proximal fracture of right humerus -CT demonstrating impaction of humerus into the glenoid -Orthopedic surgery consulted -Attempts to relocate in ED unsuccessful -N.p.o. at midnight for surgical correction tomorrow -Likely would benefit from DEXA scan as outpatient Stroke: -History of recent CVA (11/2020 -intraparenchymal right posterior parietal occipital hematoma) -No acute neurologic changes nor specific retained neurologic deficits other than general weakness -Defer additional imaging at this time as fall description seems to be mechanical in nature Hypertension: -Continue home regimen of amlodipine 10 mg daily, carvedilol 12.5 mg twice daily, clonidine 0.1 mg twice daily hydralazine 50 mg twice daily Chronic kidney disease: -Baseline creatinine between 1.7-1.9 -Creatinine on admission consistent with baseline -Continue to monitor at this time Hypercholesterolemia: -Not on statin; uncertain why -Last LDL-C of 127 in October 2018 -Recheck lipid profile in a.m. Depression: -Continue Abilify 10 mg nightly, Zoloft 200 mg daily, BuSpar 15 mg 3 times daily CODE STATUS: Full code Diet: N.p.o. at midnight for surgery DVT prophylaxis: Heparin subcu (2) Stroke: (3) Chronic kidney disease: (4) HTN (hypertension): (5) Hypercholesterolemia: (6) GERD (gastroesophageal reflux disease): (7) Major depressive disorder: History of Present Illness Primary Care Provider: Neri Denson MD Kim Aldana is a 76y/o F w/ PMH significant for recent CVA (11/2020), hypertension, hypercholesterolemia, depression, and GERD; who presents following a fall while going up stairs earlier today. Of note she was recently in the hospital for lightheadedness with ambulatory dysfunction and required inpatient rehabilitation. Patient states that she fell while going up some stairs at a friend's house earlier this evening landing on her right shoulder. Immediately had intense right shoulder pain. Did not lose consciousness, or strike her head. In ED initial attempts to relocate were unsuccessful. Imaging demonstrated comminuted closed right proximal humeral fracture. Orthopedic surgery was consulted in ED for attempted relocation. Allergies Allergy/AdvReac Type Severity Reaction Status Date / Time fentanyl Allergy Intermediate extreme Verified 04/10/21 22:46 confusion/hallucination amoxicillin Allergy Mild Hives Verified 04/10/21 22:46 Penicillins Allergy Mild RASH TO Verified 04/10/21 22:46 AMOXIL, NO RESP PROBLEMS Home Medications Medication Instructions Recorded Confirmed Type alprazolam 1 mg tablet 1 mg PO AMHS 07/19/18 04/10/21 History montelukast 10 mg tablet 10 mg PO HS #90 tab 02/17/19 04/10/21 Rx cholecalciferol (vitamin D3) 25 50 mcg PO QAM #90 tab 09/02/20 04/10/21 Rx mcg (1,000 unit) tablet (Vitamin D3) carvedilol 12.5 mg tablet (Coreg) 12.5 mg PO AMHS 01/05/21 04/10/21 History hydralazine 50 mg tablet 50 mg PO TID 01/05/21 04/10/21 History sertraline 100 mg tablet 200 mg PO DAILY 02/16/21 04/10/21 History aspirin 81 mg tablet,delayed 81 mg PO DAILY #90 tab 04/06/21 04/10/21 Rx release calcitriol 0.25 mcg capsule 0.25 mcg PO QAM #90 cap 04/06/21 04/10/21 Rx albuterol sulfate 90 mcg/actuation 2 puff INHALATION Q4 PRN 04/10/21 04/10/21 History aerosol inhaler amlodipine 10 mg tablet 10 mg PO DAILY 04/10/21 04/10/21 History aripiprazole 10 mg tablet (Abilify) 10 mg PO HS 04/10/21 04/10/21 History buspirone 15 mg tablet 15 mg PO TID 04/10/21 04/10/21 History clonidine HCl 0.1 mg tablet 0.1 mg PO AMHS 04/10/21 04/10/21 History fluticasone propionate 100 1 inh INHALATION BID PRN 04/10/21 04/10/21 History mcg/actuation blister powder for inhalation (Flovent Diskus) zolpidem 10 mg tablet 10 mg PO HS 04/10/21 04/10/21 History Past Med/Surg History Medical History Anxiety Depression GERD (gastroesophageal reflux disease) HTN (hypertension) Hypercholesterolemia Irregular heart beats follows with Dr. 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) Stroke Wheezing intermittent---reason for inhalers Surgical History History of bilateral tubal ligation History of cholecystectomy History of colonoscopy History of dilatation and curettage History of esophagogastroduodenoscopy (EGD) History of right knee joint replacement History of tooth extraction History of total left knee replacement (TKR) Family History Mother , age 82 of complications of diabetes Heart disease Stroke Family history of diabetes mellitus Grandmother (Maternal) Family history of diabetes mellitus Father , age 80 of liver issues Liver disease Other No family history of adverse response to anesthesia Social History Smoking Status: Never smoker Second Hand Exposure: No; Hx Alcohol Use: No Hx Substance Use: No Preferred Language: Italian Communication Ability: Effective [employer] Keyholder Required: No Beliefs That Will Affect Care: None marital status: Current Living Situation: Spouse current occupational status: retired 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 Feels Safe at Home: Yes Assistive Devices: Walker Review of Systems Review of Systems: All systems reviewed & are unremarkable except as noted in HPI & below Physical Exam Constitutional: WD/WN, vitals as above Eyes: PERRL, conjunctivae normal, anicteric sclerae ENMT: external ear and nose normal, oropharynx normal Respiratory: normal respiratory effort, lungs clear to auscultation Cardiovascular: Rate/Rhythm: regular rate and regular rhythm Heart Sounds: no gallop, no murmur and no cardiac rub Musculoskeletal: Ecchymosis to right upper extremity, intact strength and sensation of right hand and forearm; immobilized in sling Psychiatric: Orientation: alert and oriented x 3 Results & Data Results & Data ([facility]) Vital Signs (Past 12 Hours) Vital Signs Temp Pulse Pulse Resp BP BP Pulse Ox 04/10/21 22:21 75 20 179/66 H 90 04/10/21 20:12 79 22 186/73 H 99 04/10/21 20:05 83 22 160/103 H 99 04/10/21 20:00 75 24 163/91 H 99 04/10/21 19:56 75 26 H 168/89 H 96 04/10/21 19:50 72 24 98 04/10/21 19:49 65 24 151/68 H 98 04/10/21 19:41 81 23 151/68 H 98 04/10/21 19:40 84 21 98 04/10/21 19:32 84 22 191/73 H 95 04/10/21 19:30 82 04/10/21 19:20 81 04/10/21 19:10 89 04/10/21 19:00 86 25 H 04/10/21 18:50 82 25 H 04/10/21 18:40 81 20 04/10/21 18:33 80 27 H 04/10/21 17:26 89 19 170/70 H 98 04/10/21 17:18 92 H 24 175/70 H 96 04/10/21 17:17 75 18 200/68 H 93 04/10/21 17:10 93 H 27 H 95 04/10/21 17:00 102 H 26 H 94 04/10/21 16:53 36.6 C 89 20 201/97 H 94 Laboratory Results 04/10/21 04/10/21 04/10/21 Range/Units Unknown 19:28 19:28 WBC 12.22 H (4.8-10.8) K/uL RBC 3.69 L (4.2-5.4) M/uL Hgb 11.5 L (12.0-16.0) g/dL Hct 36.2 L (37-47) % MCV 98.1 (80-100) fL MCH 31.2 (25-34) pg MCHC 31.8 L (32-36) g/dL RDW Std Deviation 52.8 H (36.4-46.3) fL RDW Coeff of Chauncey 14.7 H (11.5-14.5) % Plt Count 203 (130-400) K/uL MPV 9.5 (7.4-10.4) fL Immature Gran % (Auto) 0.8 % Neut % (Auto) 76.6 % Lymph % (Auto) 13.3 % [place] % (Auto) 7.4 % Eos % (Auto) 1.7 % Baso % (Auto) 0.2 % Neut # (Auto) 9.36 H (1.4-6.5) K/uL Lymph # (Auto) 1.62 (1.2-3.4) K/uL [place] # (Auto) 0.90 H (0.11-0.59) K/uL Eos # (Auto) 0.21 (0-0.5) K/uL Baso # (Auto) 0.03 (0-0.2) K/uL Immature Gran # (Auto) 0.10 H (0.00-0.02) K/uL Sodium 138 (136-145) mmol/L Potassium 3.8 (3.5-5.1) mmol/L Chloride 106 (98-107) mmol/L Carbon Dioxide 26 (21-32) mmol/L Anion Gap 6.0 (3-11) BUN 31 H (7-18) mg/dl Creatinine 1.90 H (0.6-1.2) mg/dl Est Cr Clr Drug Dosing 30.7 ml/min Est GFR ( Amer) 29.6 ml/min Est GFR (Non-Af Amer) 25.5 ml/min BUN/Creatinine Ratio 16.2 (10-20) Glucose 123 H (70-99) mg/dl Calcium 9.6 (8.5-10.1) mg/dl Total Bilirubin 0.6 (0.2-1) mg/dl AST 49 H (15-37) U/L ALT 41 (12-78) Alkaline Phosphatase 49 (45-117) U/L Total Protein 7.2 (6.4-8.2) gm/dl Albumin 3.5 (3.4-5.0) gm/dl Globulin 3.7 (2.5-4.0) gm/dl Albumin/Globulin Ratio 0.9 (0.9-2) SARS-CoV-2, RNA, NAAT NEGATIVE (NEGATIVE) Diagnostic Findings Impressions Humerus X-Ray 04/10/21 16:57 XR shoulder RT min 2V routine, XR humerus RT 2V HISTORY: 76 years-old Female fall acute pain of the right shoulder and humerus status post fall COMPARISON: Chest radiograph 02/16/2021 TECHNIQUE: 2 views of the right shoulder with 2 views of the right humerus FINDINGS: SHOULDER: Anteroinferior dislocation of the humerus within a subcoracoid location. There is a least mild glenohumeral and AC joint osteoarthritis. A bone fragment is noted along the posterior inferior margin of the glenoid. HUMERUS: 3.5 cm bone fragment along the inferior margin of the glenoid suggestive of a displaced proximal humeral fracture. IMPRESSION: 1. Subcoracoid anteroinferior dislocation of the right glenohumeral joint. 2. Acute and displaced fracture of the posterior humeral head with a 3.5 cm bone fragment. ACT 112: Negative or not required by law. The above report was generated using voice recognition software. It may contain grammatical, syntax or spelling errors. Electronically signed by: Madhu Barbosa M.D. 04/10/2021 5:[address] 04/10/21 20:01 CT shoulder RT wo con CLINICAL HISTORY: Right shoulder dislocation. Evaluate for shoulder fracture. COMPARISON STUDY: Standard radiographs from 04/10/2021 CT DOSE: 452.43 mGycm TECHNIQUE: Standard CT of the right shoulder is performed without IV contrast. Multiplanar reconstruction is performed. A dose lowering technique was utilized adhering to the principles of ALARA. FINDINGS: Bones: There is a comminuted fracture/dislocation of the humeral head and neck in relation to the glenoid. The humeral head is anteriorly dislocated and impacted into the glenoid anteriorly. Numerous comminuted fracture fragments are present involving the humeral head and neck. This is most likely the reason why that the dislocation could not be reduced. There are no lytic or blastic lesions. Joints: Degenerative changes are present involving the acromioclavicular joint. Soft tissues: There is soft tissue swelling surrounding the shoulder joint. There are no focal fluid collections. IMPRESSION: Comminuted fracture/dislocation of the humeral head and neck in relation to the glenoid with impaction present . This is most likely the reason why the dislocation has not been reduced. ACT 112: Negative or not required by law. Electronically signed by: Magdi Sandoval M.D. 04/10/2021 9:13 PM Shoulder X-Ray 04/10/21 20:08 XR shoulder RT min 2V routine CLINICAL HISTORY: CONSCIOUS SEDATION REDUCTION ATTEMPT. COMPARISON STUDY: 04/10/2021 TECHNIQUE: 2 right shoulder views FINDINGS: Compared to the previous examination, there is a persistent anterior subcoracoid dislocation of the humeral head in relation to the glenoid. IMPRESSION: Persistent anterior subcoracoid dislocation of the humeral head. ACT 112: Negative or not required by law. Electronically signed by: Magdi Sandoval M.D. 04/10/2021 8:13 PM Medications Administered Home Medication List Medication Instructions Recorded alprazolam 1 mg tablet 1 mg PO AMHS 07/19/18 montelukast 10 mg tablet 10 mg PO HS #90 tab 02/17/19 cholecalciferol (vitamin D3) 25 50 mcg PO QAM #90 tab 09/02/20 mcg (1,000 unit) tablet (Vitamin D3) carvedilol 12.5 mg tablet (Coreg) 12.5 mg PO AMHS 01/05/21 hydralazine 50 mg tablet 50 mg PO TID 01/05/21 sertraline 100 mg tablet 200 mg PO DAILY 02/16/21 aspirin 81 mg tablet,delayed 81 mg PO DAILY #90 tab 04/06/21 release calcitriol 0.25 mcg capsule 0.25 mcg PO QAM #90 cap 04/06/21 albuterol sulfate 90 mcg/actuation 2 puff INHALATION Q4 PRN 04/10/21 aerosol inhaler amlodipine 10 mg tablet 10 mg PO DAILY 04/10/21 aripiprazole 10 mg tablet (Abilify) 10 mg PO HS 04/10/21 buspirone 15 mg tablet 15 mg PO TID 04/10/21 clonidine HCl 0.1 mg tablet 0.1 mg PO AMHS 04/10/21 fluticasone propionate 100 1 inh INHALATION BID PRN 04/10/21 mcg/actuation blister powder for inhalation (Flovent Diskus) zolpidem 10 mg tablet 10 mg PO HS 04/10/21 Supervising Physician Co-Signing Physician Notes Patient seen and examined, chart reviewed, case discussed with Dr. Douglas and i agree with the assessment and plan as above. In brief, patient is a 76yo female s/p mechanical fall resulting in a fracture dislocation of her right proximal humerus. Attempt at reduction in ER unsuccessful. Patient to have reverse total shoulder arthroplasty tomorrow. On exam patient afebrile, HD stable, nontoxic RUE in sling, bruising present HEENT -NC/AT, PERRL, Neck supple Heart - +S1/S2, regular, no m/r/g Lungs - CTA Abd - +BS, soft, NT/ND Ext - No edema Labs and images reviewed Assessment/Plan -Pain control -Plan for OR reduction/repair in AM -Continue home agents as above Resident Activity Tracking Resident Involvement: Resident Care Provided Care Provided: Adult Hospital Medicine (1) Stroke CVA mechanism: unspecified Qualified Code(s): I63.9 - Cerebral infarction, unspecified (2) Closed fracture of right proximal humerus Encounter type: initial encounter Fracture alignment: displaced Fracture morphology: other fracture Qualified Code(s): S42.291A - Other displaced fracture of upper end of right humerus, initial encounter for closed fracture
--- NOTE | 2021-04-10 23:08 | Orthopedic Consultation ---
Date of Service April 10, 2021 Assessment & Plan (1) Closed fracture of right proximal humerus: 76-year-old female with limited left upper extremity function due to stroke and chronic kidney disease presents after a fall with a fracture dislocation of her right proximal humerus. Fracture pattern is best treated with reverse total shoulder arthroplasty to restore function to her dominant extremity. I discussed the nature of the fracture and recommended treatment to the patient, her daughter, Juliann, and her , Tyrel. We discussed the risk of surgery include but not limited to infection, neuro or vessel injury, blood loss, need for repeat or revision procedures, failure to heal, instability of the shoulder, pain syndromes, blood clots and complications related to anesthesia. Alternatives to surgery include nonoperative treatment which will likely result in a symptomatic malunion or nonunion and less function than what could be achieved with an arthroplasty procedure. They all asked appropriate questions, demonstrated good understanding and wanted proceed with surgery. Patient should be admitted for pain control due to the displacement of the humeral head and preoperative medical optimization. Surgery will be planned for tomorrow with myself or Dr. Rondon. Informed consent was discussed this evening with her daughter Juliann, and should be confirmed tomorrow. History of Present Illness Reason for Consultation: Right proximal humerus fracture dislocation Requesting Physician: . 76-year-old female with a history of stroke in the past year and recent falls presents the ED after a fall down onto stairs at a friend's house this evening resulting in an injury to her right shoulder. Orthopedics was consulted for an irreducible glenohumeral fracture dislocation. Another attempt at reduction was performed under sedation, however the reduction was complicated the comminuted fracture. Post reduction attempt CT demonstrated a four-part proximal humerus fracture with a head split. Patient denies any previous history of shoulder pain or injury. She was accompanied at the bedside today by her daughter, who is the primary decision maker and her . Patient denied any numbness or tingling in the right upper extremity. Allergies Allergy/AdvReac Type Severity Reaction Status Date / Time fentanyl Allergy Intermediate extreme Verified 04/10/21 22:46 confusion/hallucination amoxicillin Allergy Mild Hives Verified 04/10/21 22:46 Penicillins Allergy Mild RASH TO Verified 04/10/21 22:46 AMOXIL, NO RESP PROBLEMS Home Medications Medication Instructions Recorded Confirmed Type alprazolam 1 mg tablet 1 mg PO AMHS 07/19/18 04/10/21 History montelukast 10 mg tablet 10 mg PO HS #90 tab 02/17/19 04/10/21 Rx cholecalciferol (vitamin D3) 25 50 mcg PO QAM #90 tab 09/02/20 04/10/21 Rx mcg (1,000 unit) tablet (Vitamin D3) carvedilol 12.5 mg tablet (Coreg) 12.5 mg PO AMHS 01/05/21 04/10/21 History hydralazine 50 mg tablet 50 mg PO TID 01/05/21 04/10/21 History sertraline 100 mg tablet 200 mg PO DAILY 02/16/21 04/10/21 History aspirin 81 mg tablet,delayed 81 mg PO DAILY #90 tab 04/06/21 04/10/21 Rx release calcitriol 0.25 mcg capsule 0.25 mcg PO QAM #90 cap 04/06/21 04/10/21 Rx albuterol sulfate 90 mcg/actuation 2 puff INHALATION Q4 PRN 04/10/21 04/10/21 History aerosol inhaler amlodipine 10 mg tablet 10 mg PO DAILY 04/10/21 04/10/21 History aripiprazole 10 mg tablet (Abilify) 10 mg PO HS 04/10/21 04/10/21 History buspirone 15 mg tablet 15 mg PO TID 04/10/21 04/10/21 History clonidine HCl 0.1 mg tablet 0.1 mg PO AMHS 04/10/21 04/10/21 History fluticasone propionate 100 1 inh INHALATION BID PRN 04/10/21 04/10/21 History mcg/actuation blister powder for inhalation (Flovent Diskus) zolpidem 10 mg tablet 10 mg PO HS 04/10/21 04/10/21 History Past Med/Surg History Medical History Anxiety Depression GERD (gastroesophageal reflux disease) HTN (hypertension) Hypercholesterolemia Irregular heart beats follows with Dr. 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) Stroke Wheezing intermittent---reason for inhalers Surgical History History of bilateral tubal ligation History of cholecystectomy History of colonoscopy History of dilatation and curettage History of esophagogastroduodenoscopy (EGD) History of right knee joint replacement History of tooth extraction History of total left knee replacement (TKR) Family History Mother , age 82 of complications of diabetes Heart disease Stroke Family history of diabetes mellitus Grandmother (Maternal) Family history of diabetes mellitus Father , age 80 of liver issues Liver disease Other No family history of adverse response to anesthesia Social History Smoking Status: Never smoker Second Hand Exposure: No; Hx Alcohol Use: No Hx Substance Use: No Preferred Language: Bengali Communication Ability: Effective Rug Inspector Required: No Beliefs That Will Affect Care: None marital status: Current Living Situation: Spouse current occupational status: retired 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 Physical Exam Right upper extremity: Edema about the right shoulder. Postreduction exam demonstrated motor and sensation intact to her right hand. She can fire her deltoid. Sensation is grossly intact to the axillary nerve distribution. She had active motion about the elbow wrist and digits. Secondary survey was unremarkable. Constitutional well developed and well nourished; no acute distress and not intoxicated appearing ENMT external ear and nose normal, oropharynx normal Respiratory normal respiratory effort; no respiratory distress Cardiovascular Extremities: normal capillary refill; no edema Skin no rashes, warm and dry Psychiatric A+Ox3, euthymic affect Results & Data Results & Data Laboratory Results . H & H 04/10/21 Range/Units 19:28 Hgb 11.5 L (12.0-16.0) g/dL Hct 36.2 L (37-47) % Diagnostic Findings Radiographs and CT scan of the right shoulder: Multiple views of the right shoulder demonstrate a four-part proximal humerus fracture dislocation with a large anterior head fragment and separate greater tuberosity fragment. This is in the setting of relative osteopenia PG Care Time/CCT Total # of Minutes Spent Total Time Spent with Patient: Total time spent is greater than 50% in coordination of care (as documented) at patient's floor/unit and/or counseling patient: Coding Level of Care Code 53047 Inpt Consult Level 4 (57 - DECISION FOR SURGERY) Diagnoses Closed fracture of right proximal humerus S42.291A Encounter type: initial encounter Fracture alignment: displaced Fracture morphology: other fracture (1) Closed fracture of right proximal humerus Encounter type: initial encounter Fracture alignment: displaced Fracture morphology: other fracture Qualified Code(s): S42.291A - Other displaced fracture of upper end of right humerus, initial encounter for closed fracture
--- NOTE | 2021-04-10 23:11 | Procedure Note ---
Procedure Note Date of Service April 10, 2021 Note Right shoulder closed reduction under ER sedation: Procedural timeout was called by the emergency room physician and verified all present. Informed consent was confirmed previously. Once adequate sedation had been achieved by the emergency room staff, I placed traction on the right upper extremity and attempt to internally rotate and manually manipulate the humeral head back into the glenoid. There was significant crepitus. I pulled final traction and then rotated the arm back in place. Due to the crepitus that did not feel that any further reduction attempt was necessary. Portable x-ray was called. AP and scapular Y views were concerning for a humeral head split fracture or a multiple part and comminuted proximal humerus fracture involving the head. Reduction maneuvers were discontinued and the arm was placed comfortably in a sling. Coding [facility] Procedure Codes (Charges) Indication for Procedure Indication for procedure: 76-year-old female with an unreducible right glenohumeral fracture dislocation. Preoperative films show most likely greater tuberosity fracture. The emergency room physicians attempted closed reduction maneuvers with pain control, but were unsuccessful. Due to the patient's habitus and likely airway difficulty, they asked for orthopedic assistance for closed reduction under sedation in the ED. I discussed the purpose of the reduction attempts which is to reduce the humeral head if possible so we can more appropriately evaluate the fracture. Patient and her daughter were agreeable to proceed. Informed consent was obtained at bedside.
[2021-04-11] MEDS ORDERED: POLYETHYLENE (MIRALAX) 17 GM PACK PO PRN (00:05)
[2021-04-11] MEDS ORDERED: MoRPHine SULFATE 2 MG/ML CARP IV PRN (00:05)
[2021-04-11] MEDS ORDERED: NITROGLYCERIN SL 0.4 MG/TAB TAB SL PRN (00:05)
[2021-04-11] MEDS ORDERED: ONDANSETRON INJ 2 MG/ML 2 ML VIAL IV PRN ×3 (00:05→19:46)
[2021-04-11] MEDS: SODIUM CHLORIDE 0.9% 1000ML 1,000 ML IV SCH ×3 (00:47→20:45)
[2021-04-11] MEDS ORDERED: ALBUTEROL HFA 8 GM INHALER INH PRN (00:51)
[2021-04-11] MEDS: MoRPHine SULFATE 4 MG/ML 1 ML CARP\\VIAL IV PRN ×2 (01:00→03:54)
[2021-04-11] MEDS ORDERED: FLUTICASONE FUROATE 100MCG 14 PUFFS/INHALER INH PRN (01:08)
--- NOTE | 2021-04-11 04:26 | Billing Data ---
Date of Service April 10, 2021 Coding Level of Care Code 86223 Initial Inpt Care Lvl 3
[2021-04-11 05:54] LABS: Basophils # (auto) 0.04 K/uL (0-0.2); Basophils % (auto) 0.5 %; Eosinophils # (auto) 0.07 K/uL (0-0.5); Eosinophils % (auto) 0.8 %; Hematocrit (blood only) 32.3 % (37-47); Hemoglobin 10.3 g/dL (12.0-16.0); Immature Granulocytes # (auto) 0.05 K/uL (0.00-0.02); Immature Granulocytes % (auto) 0.6 %; Lymphocytes # (auto) 1.51 K/uL (1.2-3.4); Lymphocytes % (auto) 18.3 %; Mean Corpuscular Hemoglobin 31.3 pg (25-34); Mean Corpuscular Hgb Conc 31.9 g/dL (32-36); Mean Corpuscular Volume 98.2 fL (80-100); Mean Platelet Volume 9.3 fL (7.4-10.4); Monocytes # (auto) 0.75 K/uL (0.11-0.59); Monocytes % (auto) 9.1 %; Neutrophils # (auto) 5.85 K/uL (1.4-6.5); Neutrophils % (auto) 70.7 %; Platelet Count 231 K/uL (130-400); RDW Coefficient of Variation 14.6 % (11.5-14.5); RDW Standard Deviation 52.1 fL (36.4-46.3); Red Blood Count 3.29 M/uL (4.2-5.4); White Blood Count 8.27 K/uL (4.8-10.8)
[2021-04-11 06:36] LABS: BUN Creatinine Ratio 15.7 (10-20); Calcium 9.3 mg/dl (8.5-10.1); Creatinine Clr Calc Pharmacy 32.6 ml/min; Est GFR (African American) 31.8 ml/min; Est GFR (Non-African American) 27.4 ml/min; Potassium 3.8 mmol/L (3.5-5.1)
--- NOTE | 2021-04-11 08:12 | Hospitalist Progress Note ---
Date of Service April 11, 2021 Assessment & Plan (1) Closed fracture of right proximal humerus: Plan: Kim Aldana is a 76y/o F w/ PMH significant for recent CVA (11/2020), hypertension, hypercholesterolemia, depression, and GERD; who presents following a mechanical fall while going up stairs earlier today. Closed right proximal humerus fracture: -Fall w/ trauma to R shoulder. -CT demonstrating impaction of humerus into the glenoid -Orthopedic surgery consulted -Crepitus felt during attempt at closed reduction. Attempt unsuccessful. -Plan for R total shoulder arthroplasty. -NPO for surgery. Reassess patient and progress diet after. -Likely would benefit from DEXA scan as outpatient Hypertension: -Continue home regimen of amlodipine 10 mg daily, carvedilol 12.5 mg twice daily, clonidine 0.1 mg twice daily hydralazine 50 mg twice daily -consider sleep study Chronic kidney disease stage 4: -Baseline creatinine between 1.7-1.9 -Creatinine on admission consistent with baseline -Continue to monitor at this time Hypercholesterolemia: -outpatient f/u with pcp to review labs Hx of Stroke: -History of recent CVA (11/2020 - intraparenchymal right posterior parietal occipital hematoma) -No acute neurologic changes nor specific retained neurologic deficits other than general weakness -No head trauma or LOC from fall. -Defer additional imaging at this time as fall description seems to be mechanical in nature Depression: -Continue Abilify 10 mg nightly, Zoloft 200 mg daily, BuSpar 15 mg 3 times daily CODE STATUS: Full code Diet: N.p.o. for surgery DVT prophylaxis: Heparin SQ (2) Stroke: (3) Chronic kidney disease: (4) HTN (hypertension): (5) Hypercholesterolemia: (6) GERD (gastroesophageal reflux disease): (7) Major depressive disorder: Admission and Anticipated Discharge Date Admission Date: April 10, 2021 Supervising Physician Co-Signing Physician Notes Resident Physician Supervision Note: I independently interviewed and examined the patient and verified the sosa history and physical, reviewed labs and image studies and agree with resident Dr. Carrillo findings and care plan. Subjective Patient seen at bedside this morning. Patient doing well aside from the pain in her right shoulder. Says she was walking up the steps at her friends house when she lost her balance and fell without hitting her head or any loss of consciousness. Denies any fevers, chills, nausea, vomiting. She had a stroke earlier in November without any residual effects and was put on aspirin afterwards. Physical Exam Constitutional: WD/WN, vitals as above Eyes: PERRL, conjunctivae normal, anicteric sclerae Respiratory: normal respiratory effort, lungs clear to auscultation Cardiovascular: RRR, no murmur, no edema Gastrointestinal (Abdomen): normal bowel sounds, soft, nontender, no hepatosplenomegaly Musculoskeletal: Right arm in sling, peripheral pulse still in tact, sensation in tact. Tenderness at right shoulder. Results & Data Results & Data ([facility]) Vital Signs (Past 12 Hours) Vital Signs Temp Pulse Pulse Resp BP BP Pulse Ox 04/11/21 05:58 37 C 96 H 20 175/79 H 95 04/11/21 03:22 86 20 162/68 H 91 04/11/21 00:51 75 20 160/78 H 92 04/11/21 00:07 71 20 159/69 H 92 04/10/21 23:56 70 20 161/58 H 91 04/10/21 22:30 72 166/62 H 92 04/10/21 22:21 75 20 179/66 H 90 04/10/21 22:03 77 179/66 H 94 04/10/21 22:00 75 92 04/10/21 21:30 81 04/10/21 21:18 84 93 04/10/21 20:30 85 25 H 187/86 H 93 04/10/21 20:12 79 22 186/73 H 99 Pulse Ox 04/11/21 05:58 04/11/21 03:22 04/11/21 00:51 04/11/21 00:07 92 04/10/21 23:56 04/10/21 22:30 04/10/21 22:21 04/10/21 22:03 04/10/21 22:00 04/10/21 21:30 04/10/21 21:18 04/10/21 20:30 04/10/21 20:12 Resident Activity Tracking Resident Involvement: Resident Care Provided Care Provided: Adult Hospital Medicine (1) Stroke CVA mechanism: unspecified Qualified Code(s): I63.9 - Cerebral infarction, unspecified (2) Closed fracture of right proximal humerus Encounter type: initial encounter Fracture alignment: displaced Fracture morphology: other fracture Qualified Code(s): S42.291A - Other displaced fracture of upper end of right humerus, initial encounter for closed fracture
--- NOTE | 2021-04-11 09:06 | Electrocardiogram Report ---
Test Reason : Blood Pressure : / mmHG Vent. Rate : 085 BPM Atrial Rate : 085 BPM P-R Int : 184 ms QRS Dur : 094 ms QT Int : 380 ms P-R-T Axes : 062 -15 037 degrees QTc Int : 452 ms Normal sinus rhythm Normal ECG When compared with ECG of 16-FEB-2021 16:23, No significant change Confirmed by Brandon Castaneda ([id number]) on 04/11/2021 9:06:12 AM Referred By: REFERRED SELF Confirmed By:Brandon Csataneda
[2021-04-11] MEDS: HEPARIN SOD 5,000 UNIT/0.5 ML VIAL SQ SCH ×2 (10:00→20:33)
[2021-04-11] MEDS: ASPIRIN 81 MG ECTAB PO SCH (10:27)
[2021-04-11] MEDS: ALPRAZolam 0.5 MG TABLET PO SCH ×2 (10:27→20:31)
[2021-04-11] MEDS: amLODIPine BESYLATE 5 MG TAB PO SCH (10:27)
[2021-04-11] MEDS: busPIRone 15 MG TAB PO SCH ×3 (10:28→20:32)
[2021-04-11] MEDS: carvediloL 12.5 MG TAB PO SCH ×2 (10:28→20:35)
[2021-04-11] MEDS: SERTRALINE HCL 100 MG TABLET PO SCH (10:28)
[2021-04-11] MEDS: CALCITRIOL 0.25 MCG CAPSULE PO SCH (10:28)
[2021-04-11] MEDS: cloNIDine HCL 0.1 MG TAB PO SCH ×2 (10:28→20:35)
[2021-04-11] MEDS: hydrALAZINE TAB 50 MG TAB PO SCH ×3 (10:28→20:33)
--- NOTE | 2021-04-11 12:53 | Anesthesiology Consultation ---
Date of Service April 11, 2021 Assessment & Plan (1) Encounter for pre-operative examination: Chart Review Chart Review: Acceptable Risk for Surgery and Patient NOT seen in Pre Admission Testing Consults Requested none Proposed Anesthesia Site: Saphenous History Surgery Operation Date: 04/11/21 11:05 Proposed Procedures p Right Total Shoulder Arthroplasty Aliya - Audie Rondon DO Height/Weight Height: 5 ft 1 in Weight: 115.4 kg Allergies Allergy/AdvReac Type Severity Reaction Status Date / Time fentanyl Allergy Intermediate extreme Verified 04/10/21 22:46 confusion/hallucination amoxicillin Allergy Mild Hives Verified 04/10/21 22:46 Penicillins Allergy Mild RASH TO Verified 04/10/21 22:46 AMOXIL, NO RESP PROBLEMS Medications Home Medications Medication Instructions Recorded Confirmed Last Taken alprazolam 1 mg tablet 1 mg PO AMHS 07/19/18 04/10/21 02/16/21 montelukast 10 mg tablet 10 mg PO HS #90 tab 02/17/19 04/10/21 08/11/20 cholecalciferol (vitamin D3) 25 50 mcg PO QAM #90 tab 09/02/20 04/10/21 02/16/21 mcg (1,000 unit) tablet (Vitamin D3) carvedilol 12.5 mg tablet (Coreg) 12.5 mg PO AMHS 01/05/21 04/10/21 Unknown hydralazine 50 mg tablet 50 mg PO TID 01/05/21 04/10/21 02/16/21 sertraline 100 mg tablet 200 mg PO DAILY 02/16/21 04/10/21 02/16/21 aspirin 81 mg tablet,delayed 81 mg PO DAILY #90 tab 04/06/21 04/10/21 Unknown release calcitriol 0.25 mcg capsule 0.25 mcg PO QAM #90 cap 04/06/21 04/10/21 Unknown albuterol sulfate 90 mcg/actuation 2 puff INHALATION Q4 PRN 04/10/21 04/10/21 Unknown aerosol inhaler amlodipine 10 mg tablet 10 mg PO DAILY 04/10/21 04/10/21 Unknown aripiprazole 10 mg tablet (Abilify) 10 mg PO HS 04/10/21 04/10/21 Unknown buspirone 15 mg tablet 15 mg PO TID 04/10/21 04/10/21 Unknown clonidine HCl 0.1 mg tablet 0.1 mg PO AMHS 04/10/21 04/10/21 Unknown fluticasone propionate 100 1 inh INHALATION BID PRN 04/10/21 04/10/21 Unknown mcg/actuation blister powder for inhalation (Flovent Diskus) zolpidem 10 mg tablet 10 mg PO HS 04/10/21 04/10/21 Unknown Active Medications Generic Name Dose Route Start Last Admin Trade Name Carmineq PRN Reason Stop Dose Admin Alprazolam 1 mg 04/11/21 09:00 04/11/21 10:27 Alprazolam 0.5 Mg Tablet PO 05/11/21 08:59 Not Given BID [facility] Amlodipine Besylate 10 mg 04/11/21 09:00 04/11/21 10:27 Amlodipine Besylate 5 Mg Tab PO 05/11/21 08:59 Not Given DAILY [facility] Aspirin 81 mg 04/11/21 09:00 04/11/21 10:27 Aspirin 81 Mg Ectab PO 05/11/21 08:59 Not Given DAILY [facility] Buspirone HCl 15 mg 04/11/21 09:00 04/11/21 10:28 Buspirone 15 Mg Tab PO 05/11/21 08:59 Not Given TID [facility] Calcitriol 0.25 mcg 04/11/21 09:00 04/11/21 10:28 Calcitriol 0.25 Mcg Capsule PO 05/11/21 08:59 Not Given QAM [facility] Carvedilol 12.5 mg 04/11/21 09:00 04/11/21 10:28 Carvedilol 12.5 Mg Tab PO 05/11/21 08:59 Not Given AMHS [facility] Clonidine HCl 0.1 mg 04/11/21 09:00 04/11/21 10:28 Clonidine Hcl 0.1 Mg Tab PO 05/11/21 08:59 Not Given BID [facility] Heparin Sodium (Porcine) 5,000 units 04/11/21 09:00 04/11/21 10:00 Heparin Sod 5,000 Unit/0.5 Ml Vial SQ 05/11/21 08:59 5,000 units Q12 [facility] Administration Hydralazine HCl 50 mg 04/11/21 09:00 04/11/21 10:28 Hydralazine Tab 50 Mg Tab PO 05/11/21 08:59 Not Given TID [facility] Sodium Chloride 1,000 mls @ 80 mls/hr 04/11/21 00:05 04/11/21 00:47 Nss 1000ml IV 05/11/21 00:04 80 mls/hr .[id number] [facility] Administration Morphine Sulfate 4 mg 04/11/21 00:05 04/11/21 03:54 Morphine Sulfate 4 Mg/Ml 1 Ml Carp\Vial IV 04/25/21 00:04 4 mg Q2H PRN Administration Pain Ondansetron HCl 4 mg 04/11/21 00:05 04/11/21 03:58 Ondansetron Inj 2 Mg/Ml 2 Ml Vial IV 05/11/21 00:04 4 mg Q6H PRN Administration Nausea Sertraline HCl 200 mg 04/11/21 09:00 04/11/21 10:28 Sertraline Hcl 100 Mg Tablet PO 05/11/21 08:59 Not Given DAILY [facility] NPO Date Last Intake of Fluids: 04/10/21 Time Last Intake of Fluids: 11:00 Date Last Intake of Solids: 04/10/21 Time Last Intake of Solids: 11:00 Past Medical History Medical History (Updated 04/11/21 @ 12:52 by Jodie Almaguer MD) Anxiety Depression GERD (gastroesophageal reflux disease) HTN (hypertension) Hypercholesterolemia Irregular heart beats follows with Dr. 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) Stroke 11/2020 Wheezing intermittent---reason for inhalers Past Family History Family History Mother , age 82 of complications of diabetes Heart disease Stroke Family history of diabetes mellitus Grandmother (Maternal) Family history of diabetes mellitus Father , age 80 of liver issues Liver disease Other No family history of adverse response to anesthesia Past Surgical History Surgical History History of bilateral tubal ligation History of cholecystectomy History of colonoscopy History of dilatation and curettage History of esophagogastroduodenoscopy (EGD) History of right knee joint replacement History of tooth extraction History of total left knee replacement (TKR) Social History Smoking Status: Never smoker Hx Alcohol Use: No Hx Substance Use: No substance use type: does not use Physical Exam Vital Signs Last Vital Signs Temp 37 C 04/11/21 05:58 Pulse 96 H 04/11/21 05:58 Resp 20 04/11/21 05:58 BP 175/79 H 04/11/21 05:58 Pulse Ox 95 04/11/21 05:58 Testing Laboratory Results 04/11/21 05:11 04/11/21 05:11 Electrocardiogram Date: 04/10/21 Findings: + NSR @ (85) Normal ECG When compared with ECG of 16-FEB-2021 16:23, No significant change
[2021-04-11] MEDS ORDERED: BUPIVACAINE 0.5 % 5 MG/1 ML PF 10ML VIAL ONE (14:31)
[2021-04-11] MEDS ORDERED: ROCURONIUM BROMIDE 10 MG/ML 5 ML VIAL IV ONE (15:26)
[2021-04-11] MEDS ORDERED: LIDOCAINE 2% 2 ML VIAL/AMP(20MG/ML) INFIL ONE (15:26)
[2021-04-11] MEDS ORDERED: ONDANSETRON INJ 2 MG/ML 2 ML VIAL ONE (15:26)
[2021-04-11] MEDS ORDERED: MIDAZOLAM HCL 1 MG/ML 2ML VIAL ONE (15:26)
[2021-04-11] MEDS ORDERED: PROPOFOL IV EMULSION 10 MG/ML 20 ML VIAL IV ONE ×2 (15:26→18:09)
[2021-04-11] MEDS ORDERED: LABETALOL HCL IV 5 MG/ML 20ML IV PRN (15:29)
[2021-04-11] MEDS ORDERED: HYDROmorphone INJ 1 MG/ML SYRINGE IV PRN (15:29)
[2021-04-11] MEDS ORDERED: ATROPINE SULFATE 0.1 MG/ML 10ML SYR IV PRN (15:29)
[2021-04-11] MEDS ORDERED: ROPIVACAINE 0.5% HCL/PF 150 MG, BUPIVACAINE 0.75% MPF 20 ML, EPINEPHrine 0.15 MG, Ketor... INFIL ONE (16:00)
--- NOTE | 2021-04-11 16:09 | History & Physical Bridge Note ---
Date of Service April 11, 2021 History & Physical Bridge Note I have examined the patient, reviewed the History & Physical and in the interval since the performance of the History & Physical I have noted the following changes of clinical significance: no changes noted
[2021-04-11] MEDS ORDERED: Nursing to Pharmacy Communication SCH (16:15)
[2021-04-11] MEDS ORDERED: PHENYLEPHRINE 100MCG/ML 5ML SYR ONE (16:43)
[2021-04-11] MEDS ORDERED: ePHEDrine sulfate 50 MG/ML SYR ONE (16:43)
[2021-04-11] MEDS ORDERED: NEOSTIGMINE METHYLSULFATE 1 MG/ML 10ML VIAL ONE (18:20)
[2021-04-11] MEDS ORDERED: GLYCOPYRROLATE 0.2 MG/ML VIAL ONE (18:20)
--- NOTE | 2021-04-11 18:24 | Operative Report ---
PG Post Operative Report Pre & Post Diagnosis Operation Date: 04/11/21 11:05 Pre-Op Diagnosis: Closed fracture of right proximal humerus with tendinopathy long head of the biceps tendon Post-Op Diagnosis: Closed fracture of right proximal humerus with tendinopathy of the long head of the biceps tendon I identified the patient and participated in the time-out.: Yes Procedure Operation Date: 04/11/21 11:05 Actual Procedures p Right fracture reverse Total Shoulder Arthroplasty (Right) with open biceps tenodesis as a distinct and separate procedure (modifier 59)- Audie Rondon DO Surgeon Audie Rondon DO Cloud Engineer Audie Beal PAC Estimated Blood Loss 300 Findings Consistent with Post-Op Diagnosis Specimens Right humeral head Complications none Disposition Disposition: Recovery Room Indications Kim is a pleasant 76-year-old female who fell couple days ago injuring her right shoulder. She came to the emergency room and radiographs demonstrated a fracture dislocation of the right shoulder. She was admitted to the medical service and orthopedics was consulted. I could not get a good axillary nerve examination but after discussions, we elected proceed with a right fracture reverse shoulder arthroplasty. Description of Procedure A CPT code modifier 59: The long head of the biceps tendon was enlarged and inflamed consistent with tendinopathy. A tenodesis was opted. This was a separate and distinct portion of the procedure. For these reasons, a CPT code modifier 59 will be added to this case. Implants used: I used a [employer]omet Comprehensive fracture reverse total shoulder arthroplasty system with a size 8 press fit fracture humeral stem, a standard humeral tray and a +3 constrained humeral bearing, a 25 mm baseplate with a 6.5 mm central screw and superior and inferior locking screws, and a size 36 mm eccentric glenosphere. Kim was brought down from her hospital room to the preoperative holding area. The operative extremity was identified and signed. She was given a preoperative antibiotic, TXA, and an interscalene nerve block. She was taken back to the operating room, laid on table in supine position, and put under gen eral anesthesia. She was then put into the beachchair position. The shoulder was then prepped and draped in sterile fashion. A timeout was done and the patient and the operative extremity was properly identified. A deltopectoral approach was used. Dissection was taken down through the fascia and the deltoid was retracted laterally and the conjoined tendon was retracted medially. The anterior shoulder was exposed. The fracture was identified and the biceps tendon was found. The biceps groove was opened up and the biceps tendon was examined extensively. The biceps tendon demonstrated partial tearing secondary to the fracture. The long head of the biceps tendon was then tenodesed to the upper border of the pectoralis major. This was a separate and distinct portion of the procedure. The humeral head was then removed from the subcoracoid region. Extreme care was taken not to disrupt any of the neurovascular bundles. The infraspinatus was osteotomized off the humeral head with an oscillating saw. The humeral head was then removed. The lesser tuberosity was then tagged with four #5 FiberWire sutures. The wound was then irrigated. The glenoid was then exposed. The glenoid guide was then placed in the inferior aspect of the glenoid. A 3.2 mm Steinmann pin was then placed into the glenoid vault at 10 of inclination. The glenoid baseplate was then reamed. The final size 25 mmbaseplate was then impacted in the place. A 6.5 mm central screw was then placed followed by superior and inferior locking screws. A 36 mmeccentric glenosphere was then impacted into place. Surrounding soft tissues were then injected with 100 cc an orthopedic pain control cocktail. The proximal humerus was then exposed. Sequential reaming up to a size 8 reamer was done. A size 8 fracture stem was then trialed. A +3 retentive humeral bearing was trialed. The shoulder was then reduced. The shoulder was brought through full range of motion and felt to be stable. 2 additional FiberWire's were passed through the humeral shaft. The final size 8 comprehensive press-fit humeral stem was then impacted into place at 25 degrees of retroversion. The +3 retentive humeral bearing was snapped onto the standard humeral tray and the humeral tray was impacted onto the humeral stem. The shoulder was then reduced. The shoulder was brought through full range of motion and felt to be stable. The FiberWire sutures exiting the articular side of the infraspinatus were passed around the neck of the humeral stem. The bursal sided tails were passed through the suture holes in the impl ant. The greater tuberosity was then tied around the implant. 2 suture tails were passed through the infraspinatus and the subscapularis was tied around the implant. The FiberWire sutures from the humeral shaft were then passed through the supraspinatus and were tied down to the implant. The shoulder was brought through a full range of motion and felt to be stable. The wound was irrigated with normal saline solution. The deltopectoral interval was closed with 2-0 Vicryl suture. Skin was closed with 2-0 Vicryl and angi. A Silverlon dressing was placed and the arm was rested in a regular arm sling. She was then extubated and transferred to a hospital bed. She taken to the postanesthesia care unit in stable condition. She tolerated the procedure well. Audie Beal PA-C, was present for the entire procedure. He was critical for patient positioning, prepping, draping, retraction exposure, wound closure and application of sterile dressing. I attest to the content of the Intraoperative Record and any orders documented therein. Any exceptions are noted below.
[2021-04-11] MEDS ORDERED: LABETALOL HCL IV 5 MG/ML 20ML IV ONE (18:36)
--- NOTE | 2021-04-11 19:35 | Anesthesiology Progress Note ---
Date of Service April 11, 2021 Anesthesia Post Procedure Vital Signs Vital Signs: Temp Pulse Pulse Pulse Resp BP BP 04/11/21 19:15 85 22 189/93 H 04/11/21 19:05 86 22 129/77 04/11/21 18:56 36.3 C L 86 22 180/81 H 04/11/21 15:30 36.7 C 84 20 183/71 H 04/11/21 05:58 37 C 96 H 20 175/79 H 04/11/21 03:22 86 20 162/68 H 04/11/21 00:51 75 20 160/78 H 04/11/21 00:07 71 20 159/69 H 04/10/21 23:56 70 20 161/58 H 04/10/21 22:30 72 166/62 H 04/10/21 22:21 75 20 179/66 H 04/10/21 22:03 77 179/66 H 04/10/21 22:00 75 04/10/21 21:30 81 04/10/21 21:18 84 04/10/21 20:30 85 25 H 187/86 H 04/10/21 20:12 79 22 186/73 H 04/10/21 20:11 81 27 H 186/73 H 04/10/21 20:05 83 22 160/103 H 04/10/21 20:00 75 24 163/91 H 04/10/21 19:56 75 26 H 168/89 H 04/10/21 19:50 72 24 04/10/21 19:49 65 24 151/68 H 04/10/21 19:41 81 23 151/68 H 04/10/21 19:40 84 21 Pulse Ox Pulse Ox 04/11/21 19:15 93 04/11/21 19:05 92 04/11/21 18:56 94 04/11/21 15:30 100 04/11/21 05:58 95 04/11/21 03:22 91 04/11/21 00:51 92 04/11/21 00:07 92 92 04/10/21 23:56 91 04/10/21 22:30 92 04/10/21 22:21 90 04/10/21 22:03 94 04/10/21 22:00 92 04/10/21 21:30 04/10/21 21:18 93 04/10/21 20:30 93 04/10/21 20:12 99 04/10/21 20:11 99 04/10/21 20:05 99 04/10/21 20:00 99 04/10/21 19:56 96 04/10/21 19:50 98 04/10/21 19:49 98 04/10/21 19:41 98 04/10/21 19:40 98 Pain Intensity Right Shoulder: Pain Intensity: 4 Transfer of Care Handoff Completed per policy Notes Mental Status: alert / awake / arousable Patient Amnestic to Procedure: Yes Nausea / Vomiting: adequately controlled Pain: adequately controlled Airway Patency, RR, SpO2: stable & adequate BP & HR: stable & adequate Hydration State: stable & adequate Anesthetic Complications: no major complications apparent
--- NOTE | 2021-04-11 19:39 | XRay Report ---
XR shoulder RT min 2V routine CLINICAL HISTORY: Post shoulder surgery TECHNIQUE: 3 views of the right shoulder were obtained. Comparison: None available at the time of this dictation. FINDINGS: Patient is status post shoulder arthroplasty with expected postsurgical changes including soft tissue swelling, subcutaneous emphysema, and surgical staple placement. No periarticular lucency or hardwar e fracture is seen. Joint spaces are well-preserved. Soft tissue swelling simultaneous emphysema is s een. The visualized portions of the lungs are clear. IMPRESSION: Expected postoperative appearance status post placement of shoulder arthroplasty. ACT 112: Negative or not required by law. Electronically signed by: Desean Reynolds M.D. 04/11/2021 7:37 PM
[2021-04-11] MEDS ORDERED: NALOXONE HCL 0.4 MG/1 ML VIAL/CARP IV PRN (19:46)
[2021-04-11] MEDS ORDERED: METOCLOPRAMIDE HCL INJ 5 MG/ML 2 ML VIAL IV PRN (19:46)
[2021-04-11] MEDS ORDERED: bisacodyL 10 MG SUPP PR PRN (19:46)
[2021-04-11] MEDS ORDERED: MAGNESIUM HYDROXIDE SUSP 30 ML UDC PO PRN (19:46)
[2021-04-11] MEDS ORDERED: HYDROmorphone INJ 0.5 MG/0.5 ML SYR IV PRN (19:46)
[2021-04-11] MEDS: ACETAMINOPHEN 500 MG TAB PO SCH (20:31)
[2021-04-11] MEDS: KETOROLAC TROMETHAMINE 15 MG/ML VIAL IV SCH (20:34)
[2021-04-11] MEDS: ARIPiprazole 10 MG TAB PO SCH (20:34)
[2021-04-11] MEDS: MONTELUKAST SODIUM 10 MG TABLET PO SCH (20:36)
[2021-04-11] MEDS: DOCUSATE SODIUM 100 MG CAP PO SCH (20:43)
[2021-04-11] MEDS: ZOLPIDEM TARTRATE 10 MG TAB PO SCH (20:43)
[2021-04-11] MEDS: SENNA 8.6 MG TAB PO SCH (20:52)
[2021-04-12] MEDS: ceFAZolin 2000MG 2,000 MG/15 ML SYR IV SCH ×2 (01:50→09:09)
[2021-04-12] MEDS: KETOROLAC TROMETHAMINE 15 MG/ML VIAL IV SCH ×4 (01:51→20:58)
[2021-04-12] MEDS: ACETAMINOPHEN 500 MG TAB PO SCH ×3 (06:31→21:00)
[2021-04-12 06:36] LABS: Basophils # (auto) 0.01 K/uL (0-0.2); Basophils % (auto) 0.1 %; Eosinophils # (auto) 0.05 K/uL (0-0.5); Eosinophils % (auto) 0.6 %; Hematocrit (blood only) 24.5 % (37-47); Hemoglobin 7.8 g/dL (12.0-16.0); Immature Granulocytes # (auto) 0.03 K/uL (0.00-0.02); Immature Granulocytes % (auto) 0.4 %; Lymphocytes # (auto) 1.13 K/uL (1.2-3.4); Lymphocytes % (auto) 14.5 %; Mean Corpuscular Hemoglobin 31.5 pg (25-34); Mean Corpuscular Hgb Conc 31.8 g/dL (32-36); Mean Corpuscular Volume 98.8 fL (80-100); Mean Platelet Volume 9.4 fL (7.4-10.4); Monocytes # (auto) 0.75 K/uL (0.11-0.59); Monocytes % (auto) 9.6 %; Neutrophils # (auto) 5.85 K/uL (1.4-6.5); Neutrophils % (auto) 74.8 %; Platelet Count 167 K/uL (130-400); RDW Coefficient of Variation 14.7 % (11.5-14.5); RDW Standard Deviation 52.9 fL (36.4-46.3); Red Blood Count 2.48 M/uL (4.2-5.4); White Blood Count 7.82 K/uL (4.8-10.8)
[2021-04-12 07:00] LABS: BUN Creatinine Ratio 13.4 (10-20); Calcium 8.1 mg/dl (8.5-10.1); Est GFR (African American) 27.6 ml/min; Est GFR (Non-African American) 23.8 ml/min; Potassium 4.3 mmol/L (3.5-5.1)
--- NOTE | 2021-04-12 07:02 | Hospitalist Progress Note ---
Date of Service April 12, 2021 Assessment & Plan (1) Closed fracture of right proximal humerus: Plan: Kim Aldana is a 76y/o F w/ PMH significant for recent CVA (11/2020), hypertension, hypercholesterolemia, depression, and GERD; who presents following a mechanical fall while going up stairs earlier today. Closed right proximal humerus fracture: -Fall w/ trauma to R shoulder. -CT demonstrating impaction of humerus into the glenoid -Orthopedic surgery consulted -Crepitus felt during attempt at closed reduction. Attempt unsuccessful. -R total shoulder arthroplasty yesterday without complication. -PT/OT recommending SNF. Case management to organize. -Reassess tomorrow. -Likely would benefit from DEXA scan as outpatient Anemia: -Hgb 10.3 preoperatively, postoperatively 7.8 -Repeat hgb 10 hours later 7.2 -Patient consented for blood, transfuse if hgb <7 Hypertension: -Systolic BP lower. -Considering drop in hb will hold antihypertensive until BP better. - Holding home regimen of amlodipine 10 mg daily, carvedilol 12.5 mg twice daily, clonidine 0.1 mg twice daily hydralazine 50 mg twice daily Chronic kidney disease stage 4: -Baseline creatinine between 1.7-1.9 -Creatinine on admission consistent with baseline -Continue to monitor at this time Hypercholesterolemia: -outpatient f/u with pcp to review labs Hx of Stroke: -History of recent CVA (11/2020 - intraparenchymal right posterior parietal occipital hematoma) -No acute neurologic changes nor specific retained neurologic deficits other than general weakness -No head trauma or LOC from fall. -Defer additional imaging at this time as fall description seems to be mechanical in nature Depression: -Continue Abilify 10 mg nightly, Zoloft 200 mg daily, BuSpar 15 mg 3 times daily CODE STATUS: Full code Diet: N.p.o. for surgery DVT prophylaxis: Heparin SQ (2) Stroke: (3) Chronic kidney disease: (4) HTN (hypertension): (5) Hypercholesterolemia: (6) GERD (gastroesophageal reflux disease): (7) Major depressive disorder: Admission and Anticipated Discharge Date Admission Date: April 10, 2021 Supervising Physician Co-Signing Physician Notes Resident Physician Supervision Note: I independently interviewed and examined the patient and verified the sosa history and physical, reviewed labs and image studies and agree with resident Dr. Carrillo findings and care plan. Subjective Patient seen at the bedside this morning. Patient feeling fine today but drowsy. Denies fevers, chills, nausea. No chest pain, shortness of breath Physical Exam Constitutional: WD/WN, vitals as above Eyes: PERRL, conjunctivae normal, anicteric sclerae Respiratory: normal respiratory effort, lungs clear to auscultation Cardiovascular: RRR, no murmur, no edema Peripheral pulses present bilaterally at upper extremities. Gastrointestinal (Abdomen): normal bowel sounds, soft, nontender, no hepatosplenomegaly Musculoskeletal: Right arm in sling. Results & Data Results & Data ([facility]) Vital Signs (Past 12 Hours) Vital Signs Temp Pulse Pulse Pulse Resp BP Pulse Ox 04/12/21 06:44 36.6 C 93 H 18 163/82 H 94 04/12/21 04:00 36.7 C 79 18 112/65 96 04/12/21 00:02 74 04/11/21 21:16 36.4 C L 72 18 140/72 97 04/11/21 21:00 36.3 C L 74 18 127/74 95 04/11/21 19:45 81 22 165/65 H 92 04/11/21 19:35 36.7 C 83 23 155/77 H 92 04/11/21 19:25 87 22 93 04/11/21 19:15 85 22 189/93 H 93 04/11/21 19:05 86 22 129/77 92 Resident Activity Tracking Resident Involvement: Resident Care Provided Care Provided: Adult Hospital Medicine (1) Stroke CVA mechanism: unspecified Qualified Code(s): I63.9 - Cerebral infarction, unspecified (2) Closed fracture of right proximal humerus Encounter type: initial encounter Fracture alignment: displaced Fracture morphology: other fracture Qualified Code(s): S42.291A - Other displaced fracture of upper end of right humerus, initial encounter for closed fracture
[2021-04-12 07:04] LABS: RBC Morphology Unremarkable
[2021-04-12] MEDS: SODIUM CHLORIDE 0.9% 1000ML 1,000 ML IV SCH (07:21)
--- NOTE | 2021-04-12 07:55 | Orthopedic Progress Note ---
Date of Service April 12, 2021 Assessment & Plan (1) Status post reverse arthroplasty of right shoulder: Continue medication for pain control. Will start PT/OT most liikely today. Continue with arm sling for comfort. Continue a heart healthy diet. We will continue to follow her post operatively. Subjective Kim is a 76 y/o female POD #1 from right fracture reverse arthroplasty. Patient is sitting upright and is comfortable. Pain well controlled. No description of numbness, tingling in right upper extremity. Patient has not been up and ambulatory yet. Review of Systems All systems reviewed & are unremarkable except as noted in HPI & below. Physical Exam . Incision is clean and dry. No appearance of discharge. Neurovascularly intact right upper extremity Results & Data Results & Data Laboratory Results . Diagnostic Findings . PG Care Time/CCT Total # of Minutes Spent Total Time Spent with Patient: Total time spent is greater than 50% in coordination of care (as documented) at patient's floor/unit and/or counseling patient: Coding Level of Care Code 18955 Subseq Obs Care Lvl 2 Diagnoses Status post reverse arthroplasty of right shoulder Z96.611
[2021-04-12] MEDS: MULTIVITAMIN TAB PO SCH (09:02)
[2021-04-12] MEDS: cloNIDine HCL 0.1 MG TAB PO SCH (09:02)
[2021-04-12] MEDS: CHOLECALCIFEROL 1,000 UNITS 25 MCG TAB PO SCH (09:03)
[2021-04-12] MEDS: DOCUSATE SODIUM 100 MG CAP PO SCH ×2 (09:03→20:58)
[2021-04-12] MEDS: hydrALAZINE TAB 50 MG TAB PO SCH ×3 (09:04→21:01)
[2021-04-12] MEDS: HEPARIN SOD 5,000 UNIT/0.5 ML VIAL SQ SCH ×2 (09:04→21:01)
[2021-04-12] MEDS: carvediloL 12.5 MG TAB PO SCH (09:04)
[2021-04-12] MEDS: amLODIPine BESYLATE 5 MG TAB PO SCH (09:04)
[2021-04-12] MEDS: ASPIRIN 81 MG ECTAB PO SCH (09:04)
[2021-04-12] MEDS: SERTRALINE HCL 100 MG TABLET PO SCH (09:06)
[2021-04-12] MEDS: busPIRone 15 MG TAB PO SCH ×3 (09:06→21:00)
[2021-04-12] MEDS: CALCITRIOL 0.25 MCG CAPSULE PO SCH (09:06)
[2021-04-12] MEDS: ALPRAZolam 0.5 MG TABLET PO SCH ×2 (09:09→20:58)
[2021-04-12] MEDS ORDERED: MICONAZOLE NITRATE POWDER 43 GM EXT PRN (15:55)
[2021-04-12 16:00] LABS: Basophils # (auto) 0.02 K/uL (0-0.2); Basophils % (auto) 0.3 %; Eosinophils # (auto) 0.16 K/uL (0-0.5); Eosinophils % (auto) 2.1 %; Hemoglobin 7.2 g/dL (12.0-16.0); Immature Granulocytes # (auto) 0.02 K/uL (0.00-0.02); Immature Granulocytes % (auto) 0.3 %; Lymphocytes # (auto) 1.65 K/uL (1.2-3.4); Lymphocytes % (auto) 21.3 %; Mean Corpuscular Hemoglobin 31.3 pg (25-34); Mean Corpuscular Hgb Conc 31.3 g/dL (32-36); Mean Platelet Volume 9.2 fL (7.4-10.4); Monocytes # (auto) 0.86 K/uL (0.11-0.59); Monocytes % (auto) 11.1 %; Neutrophils # (auto) 5.04 K/uL (1.4-6.5); Neutrophils % (auto) 64.9 %; Platelet Count 157 K/uL (130-400); RDW Coefficient of Variation 14.9 % (11.5-14.5); RDW Standard Deviation 54.3 fL (36.4-46.3); White Blood Count 7.75 K/uL (4.8-10.8)
[2021-04-12 16:42] LABS: RBC Morphology Unremarkable
[2021-04-12] MEDS: ZOLPIDEM TARTRATE 10 MG TAB PO SCH (20:58)
[2021-04-12] MEDS: SENNA 8.6 MG TAB PO SCH (20:58)
[2021-04-12] MEDS: ARIPiprazole 10 MG TAB PO SCH (21:00)
[2021-04-12] MEDS: MONTELUKAST SODIUM 10 MG TABLET PO SCH (21:03)
[2021-04-13] MEDS: KETOROLAC TROMETHAMINE 15 MG/ML VIAL IV SCH ×3 (02:43→13:11)
[2021-04-13] MEDS: ACETAMINOPHEN 500 MG TAB PO SCH ×3 (05:50→21:15)
--- NOTE | 2021-04-13 06:56 | Hospitalist Progress Note ---
Date of Service April 13, 2021 Assessment & Plan (1) Closed fracture of right proximal humerus: Plan: Kim Aldana is a 76y/o F w/ PMH significant for recent CVA (11/2020), hypertension, hypercholesterolemia, depression, and GERD; who presents following a mechanical fall while going up stairs earlier today. Closed right proximal humerus fracture: -Fall w/ trauma to R shoulder. -CT demonstrating impaction of humerus into the glenoid -Orthopedic surgery consulted -close reduction attempt unsuccessful. -R total shoulder arthroplasty 04/12/21 without complication. -PT/OT recommending SNF. Case management trying to schedule patient at [facility]. -Reassess tomorrow. -Likely would benefit from DEXA scan as outpatient Acute blood loss Anemia: -Hgb 10.3 preoperatively, -Hgb 6.9 this morning, given 2 units of PRBCs. -Patient consented for blood, Hypertension: -Resume home meds if BP persistently higher. amlodipine 10 mg daily, carvedilol 12.5 mg twice daily, clonidine 0.1 mg twice daily hydralazine 50 mg twice daily Lefty on Chronic kidney disease stage 4: -Baseline creatinine between 1.7-1.9 -Creatinine 2.65 this morning. -Continue to monitor at this time Hypercholesterolemia: -outpatient f/u with pcp to review labs Hx of Stroke: -History of recent CVA (11/2020 - intraparenchymal right posterior parietal occipital hematoma) -No acute neurologic changes nor specific retained neurologic deficits other than general weakness -No head trauma or LOC from fall. -Defer additional imaging at this time as fall description seems to be mechanical in nature Depression: -Continue Abilify 10 mg nightly, Zoloft 200 mg daily, BuSpar 15 mg 3 times daily CODE STATUS: Full code Diet: N.p.o. for surgery DVT prophylaxis: Heparin SQ (2) Stroke: (3) Chronic kidney disease: (4) HTN (hypertension): (5) Hypercholesterolemia: (6) GERD (gastroesophageal reflux disease): (7) Major depressive disorder: Admission and Anticipated Discharge Date Admission Date: April 10, 2021 Supervising Physician Co-Signing Physician Notes Resident Physician Supervision Note: I independently interviewed and examined the patient and verified the sosa history and physical, reviewed labs and image studies and agree with resident Dr. Carrillo findings and care plan. Subjective Patient seen at the bedside this morning. Patient feeling fine today, no complaints of nausea, vomiting, lightheadedness or dizziness. I spoke with the patient and let her know we needed to transfuse her with blood based on her hemoglobin value that came back in the morning. I reiterated risks and benefits to the blood transfusion as she said she had never had one before. She was understanding and willing to continue with the transfusions. Physical Exam Constitutional: WD/WN, vitals as above Eyes: PERRL, conjunctivae normal, anicteric sclerae Respiratory: normal respiratory effort, lungs clear to auscultation Cardiovascular: RRR, no murmur, no edema Gastrointestinal (Abdomen): normal bowel sounds, soft, nontender, no hepatosplenomegaly Results & Data Results & Data ([facility]) Vital Signs (Past 12 Hours) Vital Signs Temp Pulse Pulse Resp BP Pulse Ox 04/13/21 04:44 36.9 C 81 20 108/64 98 04/13/21 00:00 67 04/12/21 23:40 36.3 C L 73 20 105/50 L 73 L 04/12/21 19:38 36.6 C 76 20 109/67 96 04/12/21 19:00 75 Resident Activity Tracking Resident Involvement: Resident Care Provided Care Provided: Adult Hospital Medicine (1) Stroke CVA mechanism: unspecified Qualified Code(s): I63.9 - Cerebral infarction, unspecified (2) Closed fracture of right proximal humerus Encounter type: initial encounter Fracture alignment: displaced Fracture morphology: other fracture Qualified Code(s): S42.291A - Other displaced fracture of upper end of right humerus, initial encounter for closed fracture
[2021-04-13 07:46] LABS: BUN Creatinine Ratio 15.1 (10-20); Calcium 8.4 mg/dl (8.5-10.1); Est GFR (African American) 19.8 ml/min; Est GFR (Non-African American) 17.1 ml/min
[2021-04-13 07:58] LABS: Hematocrit (blood only) 21.7 % (37-47); Hemoglobin 6.9 g/dL (12.0-16.0); Mean Corpuscular Hemoglobin 31.7 pg (25-34); Mean Corpuscular Hgb Conc 31.8 g/dL (32-36); Mean Corpuscular Volume 99.5 fL (80-100); Mean Platelet Volume 9.6 fL (7.4-10.4); Platelet Count 145 K/uL (130-400); RDW Coefficient of Variation 14.9 % (11.5-14.5); RDW Standard Deviation 54.6 fL (36.4-46.3); Red Blood Count 2.18 M/uL (4.2-5.4); White Blood Count 6.72 K/uL (4.8-10.8)
[2021-04-13] MEDS ORDERED: SODIUM CHLORIDE 0.9% 250 ML IV PRN (08:00)
[2021-04-13 08:03] LABS: Basophils # (auto) 0.03 K/uL (0-0.2); Basophils % (auto) 0.4 %; Eosinophils # (auto) 0.31 K/uL (0-0.5); Eosinophils % (auto) 4.6 %; Immature Granulocytes # (auto) 0.07 K/uL (0.00-0.02); Lymphocytes # (auto) 1.37 K/uL (1.2-3.4); Lymphocytes % (auto) 20.4 %; Monocytes # (auto) 0.64 K/uL (0.11-0.59); Monocytes % (auto) 9.5 %; Neutrophils % (auto) 64.1 %; RBC Morphology Unremarkable
[2021-04-13] MEDS: busPIRone 15 MG TAB PO SCH ×3 (08:03→20:25)
[2021-04-13] MEDS: hydrALAZINE TAB 50 MG TAB PO SCH ×3 (08:03→20:26)
[2021-04-13] MEDS: CHOLECALCIFEROL 1,000 UNITS 25 MCG TAB PO SCH (08:03)
[2021-04-13] MEDS: CALCITRIOL 0.25 MCG CAPSULE PO SCH (08:03)
[2021-04-13] MEDS: SERTRALINE HCL 100 MG TABLET PO SCH (08:03)
[2021-04-13] MEDS: MULTIVITAMIN TAB PO SCH (08:04)
[2021-04-13] MEDS: ASPIRIN 81 MG ECTAB PO SCH (08:04)
[2021-04-13] MEDS: HEPARIN SOD 5,000 UNIT/0.5 ML VIAL SQ SCH ×2 (08:04→20:31)
[2021-04-13] MEDS: ALPRAZolam 0.5 MG TABLET PO SCH ×2 (08:05→20:30)
[2021-04-13] MEDS: DOCUSATE SODIUM 100 MG CAP PO SCH ×2 (08:05→20:30)
[2021-04-13] MEDS: ARIPiprazole 10 MG TAB PO SCH (20:25)
[2021-04-13] MEDS: SENNA 8.6 MG TAB PO SCH (20:27)
[2021-04-13] MEDS: MONTELUKAST SODIUM 10 MG TABLET PO SCH (20:27)
[2021-04-13] MEDS: ZOLPIDEM TARTRATE 10 MG TAB PO SCH (20:30)
[2021-04-14] MEDS: oxyCODONE HCL IR 5 MG TAB (IMMEDIATE RELEASE) PO PRN ×2 (04:39→14:47)
[2021-04-14] MEDS: ACETAMINOPHEN 500 MG TAB PO SCH ×3 (05:06→20:21)
[2021-04-14 06:54] LABS: Basophils # (auto) 0.06 K/uL (0-0.2); Basophils % (auto) 0.7 %; Eosinophils # (auto) 0.42 K/uL (0-0.5); Eosinophils % (auto) 4.7 %; Immature Granulocytes # (auto) 0.18 K/uL (0.00-0.02); Lymphocytes # (auto) 1.86 K/uL (1.2-3.4); Lymphocytes % (auto) 20.8 %; Mean Corpuscular Hemoglobin 30.7 pg (25-34); Mean Corpuscular Hgb Conc 32.3 g/dL (32-36); Mean Corpuscular Volume 95.1 fL (80-100); Mean Platelet Volume 9.9 fL (7.4-10.4); Monocytes # (auto) 0.85 K/uL (0.11-0.59); Monocytes % (auto) 9.5 %; Neutrophils # (auto) 5.56 K/uL (1.4-6.5); Neutrophils % (auto) 62.3 %; Platelet Count 178 K/uL (130-400); RDW Coefficient of Variation 15.9 % (11.5-14.5); RDW Standard Deviation 55.4 fL (36.4-46.3); Red Blood Count 3.26 M/uL (4.2-5.4); White Blood Count 8.93 K/uL (4.8-10.8)
[2021-04-14 07:06] LABS: BUN Creatinine Ratio 18.1 (10-20); Calcium 8.8 mg/dl (8.5-10.1); Creatinine Clr Calc Pharmacy 27.1 ml/min; Est GFR (African American) 25.5 ml/min
--- NOTE | 2021-04-14 07:10 | Hospitalist Progress Note ---
Date of Service April 14, 2021 Assessment & Plan (1) Closed fracture of right proximal humerus: Plan: Kim Aldana is a 76y/o F w/ PMH significant for recent CVA (11/2020), hypertension, hypercholesterolemia, depression, and GERD; who presents following a mechanical fall while going up stairs earlier today. Closed right proximal humerus fracture: -Fall w/ trauma to R shoulder. -CT demonstrating impaction of humerus into the glenoid -Orthopedic surgery consulted -close reduction attempt unsuccessful. -R total shoulder arthroplasty 04/12/21 without complication. -PT/OT recommending SNF. Case management trying to schedule patient at [facility], possibly Saturday. -Likely would benefit from DEXA scan as outpatient Acute blood loss Anemia: -Hgb 10.3 preoperatively, 6.9 04/13. -Hgb 10.0 this morning, given 2 units of PRBCs yesterday. Hypertension: -Resume home meds if BP persistently higher. amlodipine 10 mg daily, carvedilol 12.5 mg twice daily, clonidine 0.1 mg twice daily hydralazine 50 mg twice daily Lefty on Chronic kidney disease stage 4: -Baseline creatinine between 1.7-1.9 -Creatinine 2.15 this morning. -Continue to monitor at this time Hypercholesterolemia: -outpatient f/u with pcp to review labs Hx of Stroke: -History of recent CVA (11/2020 - intraparenchymal right posterior parietal occipital hematoma) -No acute neurologic changes nor specific retained neurologic deficits other than general weakness -No head trauma or LOC from fall. -Defer additional imaging at this time as fall description seems to be mechanical in nature Depression: -Continue Abilify 10 mg nightly, Zoloft 200 mg daily, BuSpar 15 mg 3 times daily CODE STATUS: Full code Diet: N.p.o. for surgery DVT prophylaxis: Heparin SQ (2) Stroke: (3) Chronic kidney disease: (4) HTN (hypertension): (5) Hypercholesterolemia: (6) GERD (gastroesophageal reflux disease): (7) Major depressive disorder: Admission and Anticipated Discharge Date Admission Date: April 10, 2021 Supervising Physician Co-Signing Physician Notes Resident Physician Supervision Note: I independently interviewed and examined the patient and verified the sosa history and physical, reviewed labs and image studies and agree with resident Dr. Carrillo findings and care plan. Subjective Patient seen at bedside this morning. Patient said she is not nauseous or having any difficulty with eating. Denies any fevers, chills. Says she still has some pain at her right shoulder. According to nurse last night patient took ambien and xanax and was taking her gown off and wanting to get out of bed. Physical Exam Constitutional: WD/WN, vitals as above Eyes: PERRL, conjunctivae normal, anicteric sclerae Respiratory: normal respiratory effort, lungs clear to auscultation Cardiovascular: RRR, no murmur, no edema Gastrointestinal (Abdomen): normal bowel sounds, soft, nontender, no hepatosplenomegaly Skin: Right arm in sling with dressing over the surgical incisions without erythema or swelling. Results & Data Results & Data ([facility]) Vital Signs (Past 12 Hours) Vital Signs Temp Pulse Pulse Resp BP Pulse Ox 04/14/21 03:39 36.9 C 106 H 20 172/65 H 90 04/13/21 23:04 37.1 C 100 H 20 169/71 H 90 04/13/21 22:19 100 H 04/13/21 19:42 36.7 C 90 18 147/69 H 92 Resident Activity Tracking Resident Involvement: Resident Care Provided Care Provided: Adult Hospital Medicine (1) Stroke CVA mechanism: unspecified Qualified Code(s): I63.9 - Cerebral infarction, unspecified (2) Closed fracture of right proximal humerus Encounter type: initial encounter Fracture alignment: displaced Fracture morphology: other fracture Qualified Code(s): S42.291A - Other displaced fracture of upper end of right humerus, initial encounter for closed fracture
[2021-04-14] MEDS: SERTRALINE HCL 100 MG TABLET PO SCH (09:17)
[2021-04-14] MEDS: ASPIRIN 81 MG ECTAB PO SCH (09:17)
[2021-04-14] MEDS: hydrALAZINE TAB 50 MG TAB PO SCH ×3 (09:17→20:20)
[2021-04-14] MEDS: CALCITRIOL 0.25 MCG CAPSULE PO SCH (09:17)
[2021-04-14] MEDS: CHOLECALCIFEROL 1,000 UNITS 25 MCG TAB PO SCH (09:17)
[2021-04-14] MEDS: MULTIVITAMIN TAB PO SCH (09:17)
[2021-04-14] MEDS: busPIRone 15 MG TAB PO SCH ×3 (09:17→20:18)
[2021-04-14] MEDS: HEPARIN SOD 5,000 UNIT/0.5 ML VIAL SQ SCH ×2 (09:18→20:19)
[2021-04-14] MEDS: DOCUSATE SODIUM 100 MG CAP PO SCH ×2 (09:19→20:19)
[2021-04-14] MEDS: ALPRAZolam 0.5 MG TABLET PO SCH ×2 (09:19→20:17)
--- NOTE | 2021-04-14 14:40 | Orthopedic Progress Note ---
Date of Service April 14, 2021 Assessment & Plan (1) Status post reverse arthroplasty of right shoulder: Overall she is doing fairly well. She should be in a sling for 3 weeks with the right shoulder. She can do some weightbearing on the right shoulder while she is in the sling, if it helps her ambulate with a walker. She is orthopedically stable for discharge when medically ready. Full orthopedic discharge instructions were placed in the discharge summary. She will follow-up with with our office in 2 weeks. If you have any questions regarding her care in the hospital please feel free to contact me personally on my cell phone at [phone] Subjective Kim was seen and examined at bedside this morning. Overall she is doing fairly well. She is having a little bit of soreness in her right arm but is not too bad. She is wearing her sling as instructed. She has no new complaints. Review of Systems All systems reviewed & are unremarkable except as noted in HPI & below. Physical Exam On physical examination of her right shoulder, the dressing is clean and dry. She has some ecchymosis and swelling all the way down her arm into her hand. Her radial, median, and ulnar nerves are checked intact at her wrist. I was not able to check her musculocutaneous nerve. She was not having any numbness on the lateral aspect of her right arm but I was not able to do any further axillary nerve testing. Results & Data Results & Data Laboratory Results . Diagnostic Findings Postoperative x-rays of the right shoulder show the prosthesis to be in anatomic alignment without any evidence of fracture, desiccation, or loosening. PG Care Time/CCT Total # of Minutes Spent Total Time Spent with Patient: Total time spent is greater than 50% in coordination of care (as documented) at patient's floor/unit and/or counseling patient: Coding Level of Care Code 94417 Post Operative Follow-Up Diagnoses Status post reverse arthroplasty of right shoulder Z96.611
[2021-04-14] MEDS: ARIPiprazole 10 MG TAB PO SCH (20:18)
[2021-04-14] MEDS: MONTELUKAST SODIUM 10 MG TABLET PO SCH (20:20)
[2021-04-14] MEDS: SENNA 8.6 MG TAB PO SCH (20:21)
[2021-04-15] MEDS: ACETAMINOPHEN 500 MG TAB PO SCH ×3 (05:31→21:16)
[2021-04-15] MEDS: MULTIVITAMIN TAB PO SCH (08:23)
[2021-04-15] MEDS: SERTRALINE HCL 100 MG TABLET PO SCH (08:24)
[2021-04-15] MEDS: busPIRone 15 MG TAB PO SCH ×3 (08:24→21:12)
[2021-04-15] MEDS: hydrALAZINE TAB 50 MG TAB PO SCH ×3 (08:24→21:15)
[2021-04-15] MEDS: CHOLECALCIFEROL 1,000 UNITS 25 MCG TAB PO SCH (08:24)
[2021-04-15] MEDS: ASPIRIN 81 MG ECTAB PO SCH (08:25)
[2021-04-15] MEDS: CALCITRIOL 0.25 MCG CAPSULE PO SCH (08:25)
[2021-04-15] MEDS: HEPARIN SOD 5,000 UNIT/0.5 ML VIAL SQ SCH ×2 (08:25→21:14)
[2021-04-15] MEDS: DOCUSATE SODIUM 100 MG CAP PO SCH ×2 (08:35→21:11)
[2021-04-15] MEDS: ALPRAZolam 0.5 MG TABLET PO SCH ×2 (08:35→21:10)
--- NOTE | 2021-04-15 09:22 | Hospitalist Progress Note ---
Date of Service April 15, 2021 Assessment & Plan (1) Closed fracture of right proximal humerus: Plan: Kim Aldana is a 76y/o F w/ PMH significant for recent CVA (11/2020), hypertension, hypercholesterolemia, depression, and GERD; who presents following a mechanical fall while going up stairs, currently POD4 from closed R proximal humerus fracture repair Closed right proximal humerus fracture, s/p repair POD4 -CT demonstrated impaction of humerus into the glenoid -Orthopedic surgery consulted and following -Closed reduction attempt unsuccessful. -R total shoulder arthroplasty 04/11/21 without complication. -Discontinued IV Dilaudid for pain. Oxycodone PRN. -PT/OT ongoing, recommending SNF. Case management trying to schedule patient at [facility], possibly Monday 04/17 -Likely would benefit from DEXA scan as outpatient Acute blood loss anemia: -Hgb 10.3 preoperatively, postoperatively 6.9 on 04/13 -S/p 2 units PRBC. h/h stable since Hypertension: -Home regimen- amlodipine 10 mg daily, carvedilol 12.5 mg BID, clonidine 0.1 mg BID, hydralazine 50 mg TID -Holding amlodipine, carvedilol, clonidine -Continue home hydralazine 50 mg TID -Resume other home meds if BP remains persistently elevated ELLY on chronic kidney disease stage 4: -Baseline creatinine between 1.7-1.9 -Creatinine 1.73 on 04/15 -Trend BMP Hypercholesterolemia: -outpatient f/u with pcp to review labs Hx of Stroke: -History of recent CVA (11/2020 - intraparenchymal right posterior parietal occipital hematoma) -No acute neurologic changes nor specific retained neurologic deficits other than general weakness -No head trauma or LOC from fall. -Defer additional imaging at this time as fall description seems to be mechanical in nature Depression: -Continue Abilify 10 mg nightly, Zoloft 200 mg daily, BuSpar 15 mg 3 times daily CODE STATUS: Full code Diet: Heart healthy DVT prophylaxis: Heparin SQ Disposition: SNF rehab (2) Stroke: (3) Chronic kidney disease: (4) HTN (hypertension): (5) Hypercholesterolemia: (6) GERD (gastroesophageal reflux disease): (7) Major depressive disorder: Admission and Anticipated Discharge Date Admission Date: April 10, 2021 Supervising Physician Co-Signing Physician Notes Resident Physician Supervision Note: I independently interviewed and examined the patient and verified the sosa history and physical, reviewed labs and image studies and agree with resident Dr. He findings and care plan. Subjective No acute events overnight. Slept well, eating and drinking without issue. Still endorsing some R shoulder pain 6/10 severity but responds well to PRN medication. Denies other acute complaints or concerns at present. Review of Systems Review of Systems: Per subjective Physical Exam Constitutional: WD/WN, vitals as above Eyes: PERRL, conjunctivae normal, anicteric sclerae Respiratory: normal respiratory effort, lungs clear to auscultation Cardiovascular: RRR, no murmur, no edema Gastrointestinal (Abdomen): Soft, nontender, nondistended Musculoskeletal: Right arm immobilized in sling, 2+ radial pulse, no ecchymosis or tenderness along R shoulder Results & Data Results & Data ([facility]) Vital Signs (Past 12 Hours) Vital Signs Temp Pulse Pulse Resp BP Pulse Ox 04/15/21 07:20 72 04/15/21 07:19 37 C 75 19 161/75 H 98 04/15/21 03:33 36.5 C 91 H 22 148/81 H 99 04/14/21 22:59 36.9 C 91 H 22 170/80 H 95 04/14/21 22:19 89 Resident Activity Tracking Resident Involvement: Resident Care Provided Care Provided: Adult Hospital Medicine (1) Stroke CVA mechanism: unspecified Qualified Code(s): I63.9 - Cerebral infarction, unspecified (2) Closed fracture of right proximal humerus Encounter type: initial encounter Fracture alignment: displaced Fracture morphology: other fracture Qualified Code(s): S42.291A - Other displaced fracture of upper end of right humerus, initial encounter for closed fracture
[2021-04-15 09:26] LABS: Basophils # (auto) 0.04 K/uL (0-0.2); Basophils % (auto) 0.6 %; Eosinophils # (auto) 0.38 K/uL (0-0.5); Eosinophils % (auto) 5.3 %; Hematocrit (blood only) 32.6 % (37-47); Hemoglobin 10.5 g/dL (12.0-16.0); Immature Granulocytes # (auto) 0.16 K/uL (0.00-0.02); Immature Granulocytes % (auto) 2.2 %; Lymphocytes # (auto) 1.83 K/uL (1.2-3.4); Lymphocytes % (auto) 25.6 %; Mean Corpuscular Hemoglobin 30.9 pg (25-34); Mean Corpuscular Hgb Conc 32.2 g/dL (32-36); Mean Corpuscular Volume 95.9 fL (80-100); Mean Platelet Volume 9.7 fL (7.4-10.4); Monocytes # (auto) 0.61 K/uL (0.11-0.59); Monocytes % (auto) 8.5 %; Neutrophils # (auto) 4.14 K/uL (1.4-6.5); Neutrophils % (auto) 57.8 %; Platelet Count 198 K/uL (130-400); RDW Coefficient of Variation 15.8 % (11.5-14.5); RDW Standard Deviation 55.4 fL (36.4-46.3); White Blood Count 7.16 K/uL (4.8-10.8)
[2021-04-15 09:48] LABS: Calcium 9.2 mg/dl (8.5-10.1); Creatinine Clr Calc Pharmacy 33.3 ml/min; Est GFR (African American) 33.1 ml/min; Est GFR (Non-African American) 28.6 ml/min; Potassium 4.4 mmol/L (3.5-5.1)
[2021-04-15] MEDS: ARIPiprazole 10 MG TAB PO SCH (21:12)
[2021-04-15] MEDS: MONTELUKAST SODIUM 10 MG TABLET PO SCH (21:15)
[2021-04-15] MEDS: SENNA 8.6 MG TAB PO SCH (21:16)
[2021-04-16] MEDS: ACETAMINOPHEN 500 MG TAB PO SCH ×3 (05:42→20:20)
[2021-04-16 08:16] LABS: Hematocrit (blood only) 29.8 % (37-47); Hemoglobin 9.6 g/dL (12.0-16.0); Mean Corpuscular Hemoglobin 31.1 pg (25-34); Mean Corpuscular Hgb Conc 32.2 g/dL (32-36); Mean Corpuscular Volume 96.4 fL (80-100); Mean Platelet Volume 9.5 fL (7.4-10.4); Platelet Count 207 K/uL (130-400); RDW Coefficient of Variation 15.7 % (11.5-14.5); RDW Standard Deviation 55.2 fL (36.4-46.3); Red Blood Count 3.09 M/uL (4.2-5.4); White Blood Count 6.75 K/uL (4.8-10.8)
[2021-04-16] MEDS: hydrALAZINE TAB 50 MG TAB PO SCH ×3 (08:40→20:20)
[2021-04-16] MEDS: busPIRone 15 MG TAB PO SCH ×3 (08:40→20:20)
[2021-04-16] MEDS: CALCITRIOL 0.25 MCG CAPSULE PO SCH (08:40)
[2021-04-16] MEDS: MULTIVITAMIN TAB PO SCH (08:40)
[2021-04-16] MEDS: ASPIRIN 81 MG ECTAB PO SCH (08:40)
[2021-04-16] MEDS: CHOLECALCIFEROL 1,000 UNITS 25 MCG TAB PO SCH (08:41)
[2021-04-16] MEDS: HEPARIN SOD 5,000 UNIT/0.5 ML VIAL SQ SCH ×2 (08:41→20:22)
[2021-04-16] MEDS: SERTRALINE HCL 100 MG TABLET PO SCH (08:41)
[2021-04-16] MEDS: ALPRAZolam 0.5 MG TABLET PO SCH ×2 (08:43→20:25)
[2021-04-16 08:56] LABS: BUN Creatinine Ratio 23.7 (10-20); Calcium 8.9 mg/dl (8.5-10.1); Creatinine Clr Calc Pharmacy 41.5 ml/min; Est GFR (African American) 43.2 ml/min; Est GFR (Non-African American) 37.2 ml/min; Potassium 4.3 mmol/L (3.5-5.1)
[2021-04-16] MEDS: DOCUSATE SODIUM 100 MG CAP PO SCH ×2 (11:11→20:22)
--- NOTE | 2021-04-16 13:04 | XRay Report ---
XR chest 1V portable CLINICAL HISTORY: Hypoxia. Nonsmoker COMPARISON STUDY: 02/16/2021 TECHNIQUE: 1 view of the chest FINDINGS: Single frontal view of the chest demonstrates the cardiomediastinal silhouette to be within normal li mits. There is a decreased inspiratory effort with elevation of the hemidiaphragms and crowding of th e bronchovascular markings at the lung bases and centrally. The lungs are clear of alveolar opacities . There is no evidence for pleural effusion. There is no evidence for vascular congestion. There is n o acute osseous pathology. The patient is status post right total shoulder replacement. IMPRESSION: There is a decreased inspiratory effort with otherwise no acute chest disease. ACT 112: Negative or not required by law. Electronically signed by: Magdi Sandoval M.D. 04/16/2021 1:03 PM
[2021-04-16] MEDS ORDERED: amLODIPine BESYLATE 5 MG TAB PO ONE (13:23)
[2021-04-16] MEDS ORDERED: carvediloL 12.5 MG TAB PO ONE (13:23)
[2021-04-16] MEDS ORDERED: FUROSEMIDE 40 MG TAB PO ONE (13:23)
--- NOTE | 2021-04-16 13:44 | Hospitalist Progress Note ---
Date of Service April 16, 2021 Assessment & Plan (1) Closed fracture of right proximal humerus: Plan: Kim Aldana is a 76y/o F w/ PMH significant for recent CVA (11/2020), hypertension, hypercholesterolemia, depression, and GERD; who presents following a mechanical fall while going up stairs, currently POD5 from closed R proximal humerus fracture repair Closed right proximal humerus fracture, s/p repair POD5 -CT demonstrated impaction of humerus into the glenoid -Orthopedic surgery consulted and following -Closed reduction attempt unsuccessful. -R total shoulder arthroplasty 04/11/21 without complication. -Oxycodone PRN for pain, scheduled Tylenol -PT/OT ongoing, recommending SNF. Case management trying to schedule patient at [facility], possibly Monday 04/17 -Likely would benefit from DEXA scan as outpatient Hypoxia with Persistent O2 requirement -Currently 2L NC since 04/14 -CXR 04/16- decreased inspiratory effort, no acute process or evidence of pulmonary congestion -Encourage Incentive spirometer use -Lasix single dose 40 mg given since received blood transfusions and IVF -Monitor O2 saturation while ambulating, undergoing PT/OT -May benefit from outpatient sleep study to evaluate for nocturnal hypoxia/HE Atrial tachycardia -Over past 2 days- unsustained, brief bursts lasting <2 mins with self-resolu tion. Less concerning for acute cardiac pathology. -Home B benson was on hold due to hypotension -Resume carvedilol Acute blood loss anemia: -Hgb 10.3 preoperatively, postoperatively 6.9 on 04/13 -S/p 2 units pRBCs, h/h stable since Hypertension: -Home regimen- amlodipine 10 mg daily, carvedilol 12.5 mg BID, clonidine 0.1 mg BID, hydralazine 50 mg TID -Given elevated systolic pressures 04/16, resumed home medications in AM -Continue amlodipine, carvedilol, clonidine, hydralazine ELLY on chronic kidney disease stage 4: -Baseline creatinine between 1.7-1.9 -Creatinine 1.39 on 04/16 -Trend BMP Hypercholesterolemia: -outpatient f/u with pcp to review labs Hx of Stroke: -History of recent CVA (11/2020 - intraparenchymal right posterior parietal occipital hematoma) -No acute neurologic changes nor specific retained neurologic deficits other than general weakness -No head trauma or LOC from fall. -Defer additional imaging at this time as fall description seems to be mechanical in nature Depression: -Continue Abilify 10 mg nightly, Zoloft 200 mg daily, BuSpar 15 mg 3 times daily CODE STATUS: Full code Diet: Heart healthy DVT prophylaxis: Heparin SQ Disposition: SNF rehab (2) Stroke: (3) Chronic kidney disease: (4) HTN (hypertension): (5) Hypercholesterolemia: (6) GERD (gastroesophageal reflux disease): (7) Major depressive disorder: Admission and Anticipated Discharge Date Admission Date: April 10, 2021 Supervising Physician Co-Signing Physician Notes Resident Physician Supervision Note: I independently interviewed and examined the patient and verified the sosa history and physical, reviewed labs and image studies and agree with resident Dr. He findings and care plan. Subjective No acute events overnight. Slept well, eating and drinking without issue. R shoulder pain decreased compared to day prior, currently 5/10 severity. Denies other acute complaints or concerns at present. No dyspnea or chest pain. Feels well. Review of Systems Review of Systems: Per subjective Physical Exam Constitutional: WD/WN, vitals as above Eyes: PERRL, conjunctivae normal, anicteric sclerae Respiratory: normal respiratory effort, lungs clear to auscultation Cardiovascular: RRR, no murmur, no edema Gastrointestinal (Abdomen): Inspection/Auscultation: abdomen normal to inspection; abdomen not distended Percussion/Palpation: abdomen soft; abdomen nontender Results & Data Results & Data ([facility]) Vital Signs (Past 12 Hours) Vital Signs Temp Pulse Pulse Resp BP Pulse Ox 04/16/21 12:02 36.4 C L 94 H 20 182/68 H 96 04/16/21 07:55 36.9 C 92 H 20 197/66 H 95 04/16/21 07:08 90 04/16/21 04:00 36.8 C 100 H 18 154/65 H 93 Resident Activity Tracking Resident Involvement: Resident Care Provided Care Provided: Adult Hospital Medicine (1) Stroke CVA mechanism: unspecified Qualified Code(s): I63.9 - Cerebral infarction, unspecified (2) Closed fracture of right proximal humerus Encounter type: initial encounter Fracture alignment: displaced Fracture morphology: other fracture Qualified Code(s): S42.291A - Other displaced fracture of upper end of right humerus, initial encounter for closed fracture
[2021-04-16] MEDS: ARIPiprazole 10 MG TAB PO SCH (20:20)
[2021-04-16] MEDS: MONTELUKAST SODIUM 10 MG TABLET PO SCH (20:21)
[2021-04-16] MEDS: carvediloL 12.5 MG TAB PO SCH (20:21)
[2021-04-16] MEDS: SENNA 8.6 MG TAB PO SCH (20:22)
[2021-04-16] MEDS: cloNIDine HCL 0.1 MG TAB PO SCH (20:25)
[2021-04-17] MEDS: ACETAMINOPHEN 500 MG TAB PO SCH ×3 (05:10→21:18)
--- NOTE | 2021-04-17 07:10 | Hospitalist Progress Note ---
Date of Service April 17, 2021 Assessment & Plan (1) Closed fracture of right proximal humerus: Plan: Kim Aldana is a 76y/o F w/ PMH significant for recent CVA (11/2020), hypertension, hypercholesterolemia, depression, and GERD; who presents following a mechanical fall while going up stairs, currently POD5 from closed R proximal humerus fracture repair. Closed right proximal humerus fracture, s/p repair POD6 -CT demonstrated impaction of humerus into the glenoid -Orthopedic surgery consulted: * Closed reduction attempt unsuccessful. * R total shoulder arthroplasty 04/11/2021 without complication. -PT/OT ongoing, recommending SNF * Oxycodone PRN for pain, scheduled Tylenol * Patient scheduled for departure to [facility] tomorrow morning -Likely would benefit from DEXA scan as outpatient Persistent O2 requirement -Currently 2L NC since 04/14, likely secondary to obesity hypoventilatory syndrome (vs. atelectasis) -CXR 04/16- decreased inspiratory effort, no acute process or evidence of pulmonary congestion -Lasix single dose 40 mg given -Monitor O2 saturation while ambulating, undergoing PT/OT * Scheduled for outpatient sleep study Atrial tachycardia -Over past 2 days- unsustained, brief bursts lasting <2 mins with self- resolution (less concerning for acute cardiac pathology) -Atrial dysrhythmia may be secondary to hypoxia * Home carvedilol 12.5 mg every morning * Outpatient cardiology f/u Acute blood loss anemia: -Hgb 10.3 preoperatively, postoperatively 6.9 on 04/13 -S/p 2 units pRBCs, h/h stable at 9-10. -Consider resolved Hypertension: -Home regimen: amlodipine 10 mg daily, carvedilol 12.5 mg BID, clonidine 0.1 mg BID, hydralazine 50 mg TID -Given elevated systolic pressures 04/16, resumed home medications in AM * Home amlodipine 10 mg daily * Home carvedilol 12.5 mg twice daily * Home clonidine 0.1 mg twice daily * Home hydralazine 50 mg 3 times daily ELLY on chronic kidney disease stage 4: -Baseline creatinine between 1.7-1.9; patient currently at goal at 1.71 -Creatinine 1.39 on 04/16 * Trend BMP Hypercholesterolemia: * Outpatient f/u with pcp to review labs Hx of Stroke: -History of recent CVA (11/2020 - intraparenchymal right posterior parietal occipital hematoma) -No acute neurologic changes nor specific retained neurologic deficits other than general weakness -No head trauma or LOC from fall. -Defer additional imaging at this time as fall description seems to be mechanical in nature Depression: * Home Abilify 10 mg nightly, Zoloft 200 mg daily, BuSpar 15 mg 3 times daily CODE STATUS: Full code Diet: Heart healthy DVT prophylaxis: Heparin SQ Disposition: SNF rehab (2) Stroke: (3) Chronic kidney disease: (4) HTN (hypertension): (5) Hypercholesterolemia: (6) GERD (gastroesophageal reflux disease): (7) Major depressive disorder: Admission and Anticipated Discharge Date Admission Date: April 10, 2021 Supervising Physician Co-Signing Physician Notes I personally examined the patient and verified all sosa points of history and exam, discussed case, and agree with decision making with Dr Camargo pain under reasonable control. [facility] emphasis vitals noted nad heent nc at mmm breathing unlabored no accessory muscles good effort skin no rashes no pallor or icterus R arm in sling and dressing no tracking erythema humerus fx - post op and stable/recovering well hypoxia - ?OHS/HE + atelectasis most likely. supportive care. outpt sleep study for snf/rehab emphasis - otherwise as above Subjective No acute events overnight. Per telemetry: NSR 60s to 80s. Patient feels that her pain is well controlled. She reports some right hand pain with movement. Otherwise, she denies shortness of breath, chest pain, palpitations/ dizziness, fatigue, or headaches. Review of Systems Review of Systems: All systems reviewed & are unremarkable except as noted in HPI & below Physical Exam Constitutional: comfortable and + overweight; no acute distress Respiratory: normal respiratory effort and able to speak in complete sentences; no labored breathing Auscultation: + diminished lung sounds; no crackles and no wheezes Cardiovascular: RRR, no murmur, no edema Extremities: no calf tenderness and no pedal edema Gastrointestinal (Abdomen): normal bowel sounds, soft, nontender, no hepatosplenomegaly Musculoskeletal: Upper extremity: Patient's right arm and shoulder immobilized in a sling. Patient's dorsal right hand appears swollen with black-bluish discoloration, is moderately tender to palpation. Multiple patches of ecchymosis on patient's forearms bilaterally. Results & Data Results & Data ([facility]) Vital Signs (Past 12 Hours) Vital Signs Temp Pulse Pulse Resp BP Pulse Ox 04/17/21 04:00 36.9 C 84 18 152/62 H 95 04/16/21 22:20 68 04/16/21 22:00 36.7 C 79 20 138/62 96 04/16/21 19:10 36.5 C 78 20 146/69 H 97 Resident Activity Tracking Resident Involvement: Resident Care Provided Care Provided: Adult Hospital Medicine (1) Stroke CVA mechanism: unspecified Qualified Code(s): I63.9 - Cerebral infarction, unspecified (2) Closed fracture of right proximal humerus Encounter type: initial encounter Fracture alignment: displaced Fracture morphology: other fracture Qualified Code(s): S42.291A - Other displaced frac ture of upper end of right humerus, initial encounter for closed fracture
[2021-04-17 07:47] LABS: Hematocrit (blood only) 30.4 % (37-47); Hemoglobin 9.6 g/dL (12.0-16.0); Mean Corpuscular Hemoglobin 30.5 pg (25-34); Mean Corpuscular Hgb Conc 31.6 g/dL (32-36); Mean Corpuscular Volume 96.5 fL (80-100); Mean Platelet Volume 9.4 fL (7.4-10.4); Platelet Count 210 K/uL (130-400); RDW Coefficient of Variation 15.7 % (11.5-14.5); RDW Standard Deviation 55.1 fL (36.4-46.3); Red Blood Count 3.15 M/uL (4.2-5.4); White Blood Count 7.04 K/uL (4.8-10.8)
[2021-04-17] MEDS: SERTRALINE HCL 100 MG TABLET PO SCH (07:49)
[2021-04-17] MEDS: amLODIPine BESYLATE 5 MG TAB PO SCH (07:49)
[2021-04-17] MEDS: ASPIRIN 81 MG ECTAB PO SCH (07:49)
[2021-04-17] MEDS: carvediloL 12.5 MG TAB PO SCH ×2 (07:49→21:12)
[2021-04-17] MEDS: MULTIVITAMIN TAB PO SCH (07:49)
[2021-04-17] MEDS: CHOLECALCIFEROL 1,000 UNITS 25 MCG TAB PO SCH (07:50)
[2021-04-17] MEDS: CALCITRIOL 0.25 MCG CAPSULE PO SCH (07:50)
[2021-04-17] MEDS: busPIRone 15 MG TAB PO SCH ×3 (07:50→21:11)
[2021-04-17] MEDS: hydrALAZINE TAB 50 MG TAB PO SCH ×3 (07:51→21:13)
[2021-04-17] MEDS: HEPARIN SOD 5,000 UNIT/0.5 ML VIAL SQ SCH ×2 (07:52→21:12)
[2021-04-17] MEDS: DOCUSATE SODIUM 100 MG CAP PO SCH ×2 (07:57→21:13)
[2021-04-17 08:17] LABS: BUN Creatinine Ratio 19.3 (10-20); Calcium 8.9 mg/dl (8.5-10.1); Creatinine Clr Calc Pharmacy 33.7 ml/min; Est GFR (African American) 33.6 ml/min; Potassium 4.3 mmol/L (3.5-5.1)
[2021-04-17] MEDS: cloNIDine HCL 0.1 MG TAB PO SCH ×2 (08:20→21:16)
[2021-04-17] MEDS: ALPRAZolam 0.5 MG TABLET PO SCH ×2 (08:20→21:16)
--- NOTE | 2021-04-17 13:22 | Billing Data ---
Date of Service April 17, 2021 Coding Level of Care Code 07895 Subseq Hosp Care Lvl 2
[2021-04-17] MEDS: MONTELUKAST SODIUM 10 MG TABLET PO SCH (21:12)
[2021-04-17] MEDS: ARIPiprazole 10 MG TAB PO SCH (21:12)
[2021-04-17] MEDS: SENNA 8.6 MG TAB PO SCH (21:13)
[2021-04-18] MEDS: oxyCODONE HCL IR 5 MG TAB (IMMEDIATE RELEASE) PO PRN ×2 (00:31→04:41)
[2021-04-18] MEDS: ACETAMINOPHEN 500 MG TAB PO SCH (05:58)
[2021-04-18 06:25] LABS: Basophils # (auto) 0.04 K/uL (0-0.2); Basophils % (auto) 0.6 %; Eosinophils # (auto) 0.44 K/uL (0-0.5); Eosinophils % (auto) 6.9 %; Hematocrit (blood only) 30.1 % (37-47); Hemoglobin 9.4 g/dL (12.0-16.0); Immature Granulocytes # (auto) 0.18 K/uL (0.00-0.02); Immature Granulocytes % (auto) 2.8 %; Lymphocytes # (auto) 1.76 K/uL (1.2-3.4); Lymphocytes % (auto) 27.8 %; Mean Corpuscular Hemoglobin 30.6 pg (25-34); Mean Corpuscular Hgb Conc 31.2 g/dL (32-36); Mean Platelet Volume 9.7 fL (7.4-10.4); Monocytes # (auto) 0.71 K/uL (0.11-0.59); Monocytes % (auto) 11.2 %; Neutrophils # (auto) 3.21 K/uL (1.4-6.5); Neutrophils % (auto) 50.7 %; Platelet Count 216 K/uL (130-400); RDW Coefficient of Variation 15.6 % (11.5-14.5); RDW Standard Deviation 55.6 fL (36.4-46.3); Red Blood Count 3.07 M/uL (4.2-5.4); White Blood Count 6.34 K/uL (4.8-10.8)
[2021-04-18 06:39] LABS: BUN Creatinine Ratio 18.6 (10-20); Calcium 8.7 mg/dl (8.5-10.1); Creatinine Clr Calc Pharmacy 35.8 ml/min; Est GFR (African American) 36.1 ml/min; Est GFR (Non-African American) 31.2 ml/min; Potassium 3.7 mmol/L (3.5-5.1)
--- NOTE | 2021-04-18 07:08 | Discharge Summary ---
Date of Service April 18, 2021 Admission HPI Per Admitting Provider Kim Aldana is a 76y/o F w/ PMH significant for recent CVA (11/2020), hypertension, hypercholesterolemia, depression, and GERD; who presents following a fall while going up stairs earlier today. Of note she was recently in the hospital for lightheadedness with ambulatory dysfunction and required inpatient rehabilitation. Patient states that she fell while going up some stairs at a friend's house earlier this evening landing on her right shoulder. Immediately had intense right shoulder pain. Did not lose consciousness, or strike her head. In ED initial attempts to relocate were unsuccessful. Imaging demonstrated comminuted closed right proximal humeral fracture. Orthopedic surgery was consulted in ED for attempted relocation. Admission Exam Per Admitting Provider Constitutional: WD/WN, vitals as above Eyes: PERRL, conjunctivae normal, anicteric sclerae ENMT: external ear and nose normal, oropharynx normal Respiratory: normal respiratory effort, lungs clear to auscultation Cardiovascular: Rate/Rhythm: regular rate and regular rhythm Heart Sounds: no gallop, no murmur and no cardiac rub Musculoskeletal: Ecchymosis to right upper extremity, intact strength and sensation of right hand and forearm; immobilized in sling Psychiatric: Orientation: alert and oriented x 3 Principal Diagnosis Closed right proximal humerus fracture (s/p total right shoulder arthroplasty) Discharge Exam Constitutional comfortable and + overweight; no acute distress Eyes PERRL, conjunctivae normal, anicteric sclerae Respiratory normal respiratory effort and able to speak in complete sentences; no labored breathing Auscultation: + diminished lung sounds and + crackles (Mild; lower lung min bilaterally); no wheezes Cardiovascular RRR, no murmur, no edema Extremities: no calf tenderness and no pedal edema Gastrointestinal (Abdomen) normal bowel sounds, soft, nontender, no hepatosplenomegaly Discharge Data Allergies Allergy/AdvReac Type Severity Reaction Status Date / Time fentanyl Allergy Intermediate extreme Verified 04/10/21 22:46 confusion/hallucination amoxicillin Allergy Mild Hives Verified 04/10/21 22:46 Penicillins Allergy Mild RASH TO Verified 04/10/21 22:46 AMOXIL, NO RESP PROBLEMS Procedures Performed Operation Date: 04/11/21 11:05 Actual Procedures p Right Reverse Total Shoulder Arthroplasty (Right) - Audie Rondon, DO Ordered Studies 04/10/21 20:01 CT shoulder RT wo con Stat 04/11/21 15:11 US - OR guided needle placemen Routine Hospital Course (1) Closed fracture of right proximal humerus: Kim Aldana is a 76y/o F w/ PMH significant for recent CVA (11/2020), hypertension, hypercholesterolemia, depression, and GERD; who presents following a mechanical fall while going up stairs, currently POD5 from closed R proximal humerus fracture repair. Closed right proximal humerus fracture, s/p repair POD6 -CT demonstrated impaction of humerus into the glenoid -Orthopedic surgery consulted: * Closed reduction attempt unsuccessful. * R total shoulder arthroplasty 04/11/2021 without complication. -PT/OT ongoing, SNF recommended for continued care * Patient cleared for departure to [facility] for further acute rehab; patient to be discharged on: * Tylenol 1000 mg scheduled every 8 hourscontinue as needed for pain control with a goal to wean and eventually discontinue. * Oxycodone 5 to 10 mg as needed every 4 hourscontinue as needed for pain control with goal to discontinue. Persistent O2 requirement -2L NC since admission on 04/14, likely secondary to obesity hypoventilatory syndrome (vs. atelectasis) -CXR 04/16 showed with decreased inspiratory effort, with no acute process or evidence of pulmonary congestion -O2 saturation sufficient while ambulating under supervision of PT/OT -Scheduled for outpatient sleep study Atrial tachycardia -Over past 2 days- unsustained, brief bursts lasting <2 mins with self- resolution (less concerning for acute cardiac pathology) -Atrial dysrhythmia may be secondary to hypoxia * Home carvedilol 12.5 mg every morning -Patient would benefit from outpatient cardiology follow-up Acute blood loss anemia: -Hgb 10.3 preoperatively, postoperatively 6.9 on 04/13 -S/p 2 units pRBCs, h/h stable at 9-10. -Consider resolved Hypertension: -Home regimen: amlodipine 10 mg daily, carvedilol 12.5 mg BID, clonidine 0.1 mg BID, hydralazine 50 mg TID -Given elevated systolic pressures 04/16, resumed home medications 04/17/2021 * Home amlodipine 10 mg daily * Home carvedilol 12.5 mg twice daily * Home clonidine 0.1 mg twice daily * Home hydralazine 50 mg 3 times daily ELLY on chronic kidney disease stage 4: -Baseline creatinine between 1.7-1.9; patient currently at goal at 1.61 -Creatinine 1.61 on 04/18/2021 Hypercholesterolemia: * Outpatient f/u with pcp to review labs Hx of Stroke: -History of recent CVA (11/2020 - intraparenchymal right posterior parietal occipital hematoma) -No acute neurologic changes nor specific retained neurologic deficits other than general weakness -No head trauma or LOC from fall. -Defer additional imaging at this time as fall description seems to be mechanical in nature Depression: * Home Abilify 10 mg nightly * Zoloft 200 mg daily * BuSpar 15 mg 3 times daily CODE STATUS: Full code Diet: Heart healthy DVT prophylaxis: Heparin SQ Disposition: [facility] rehab (2) Stroke: (3) Chronic kidney disease: (4) HTN (hypertension): (5) Hypercholesterolemia: (6) GERD (gastroesophageal reflux disease): (7) Major depressive disorder: Total Time Total Time Spent Total Time Spent (In Minutes): <30 Discharge Plan Discharge Items Patient Disposition: Transfer Long Term Fac Reason For Visit: COMMINUTED RIGHT HUMEROUS FRACTURE Discharge Diagnosis: Closed right proximal humerus fracture s/p total right shoulder arthroplasty Activity: Per Instructions section Non-emergency contact: Primary Care Provider Call non-emergency contact if: you have any medication questions, your pain is not controlled and your temperature is above 101.5 Follow-up/Referrals: Neri Denson MD [Primary Care Provider] - Diet: Regular Addtl Attending Provider Instructions: You were admitted to the hospital for a right arm fracture. You were treated with surgery to repair your right arm and shoulder and pain medications to control your pain. A discharge summary will be sent to your primary care physician to ensure continuity of care. Please bring this discharge summary with you to your next office appointment so that your provider can review it at that time. Follow-up appointments: * Make a follow-up appointment with your PCP within the next week. It is very important that you follow up with them shortly after discharge from the hospital. * Keep all your follow-up appointments as already scheduled. If you cannot make an appointment, notify your provider. Medications: Your medication list has been reviewed and reconciled upon discharge to ensure accuracy and continuity of care. An updated list of all your medications is included with your hospital discharge paperwork. Please review this list closely, and make note of any changes. * We sent a new medication called Tylenol to your pharmacy. Take Tylenol 1000 mg every 8 hours for as long as you pain persists. The goal is to eventually stop taking it. Your provider will be made aware and will manage accordingly. * We sent a new medication called oxycodone to your pharmacy. Take oxycodone 5- 10 mg every 4 hours as needed when your pain isn't controlled by the Tylenol. Take your medications as instructed; do not skip a dose of your medicines. Make sure all of your doctors know every medicine you are taking (including [id number]-vggerpf medicines, vitamins, and supplements). Call your primary care provider before taking any new medicines (including aiog-btd-bjlsuhu medicines, vitamins, and supplements), because some of these may interact with your current medications, or may make your symptoms worse. Tell your primary care provider if you cannot afford your medications. CONTACT YOUR PRIMARY CARE PROVIDER if you experience any of the following: * Sudden severe shoulder or arm pain * Sudden laxity, or weakness, of your right arm or shoulder * Difficulty following your treatment plan, or difficulty taking medications CALL 911 OR GO TO THE EMERGENCY DEPARTMENT if you experience any of the following: * Sudden, severe abdominal pain or nausea/vomiting * Severe chest pain, or chest pain that radiates (moves) to your jaw or arm * Sudden, severe shortness of breath or difficulty breathing Thank you for allowing us to participate in your care. Addtl Spike Machine Feeder Provider Instructions: Activity and Therapy Recommendations: * If you are using [facility] then therapy will be provided at your home until they feel you have accomplished all of your goals. * If you are using [facility] then Physical Therapy will be provided until they feel you are ready to start Outpatient Physical Therapy. * If you are not using home therapy then Outpatient Physical Therapy should s tart about 3-5 days from your day of surgery. Therapy will last about 8-12 weeks * Wear your sling for 3 weeks, unless otherwise instructed. You may remove your sling to shower and to dress, but otherwise, you should be in your sling at all times, including while sleeping * The shoulder replacement is very stable and you can use your hand while in the sling * You were shown a series of exercises in the hospital. Do these exercises daily including the exercises you were shown in physical therapy. Medications: * Narcotic You will likely be sent home from the hospital with a prescription for the narcotic pain medication that worked best throughout your stay. * Other medications may be prescribed for specific circumstances. If you have any questions, please call the office at . * Resume previous home medications unless otherwise instructed Dressing Care: Leave the Silverlon dressing in place for 7 days. After 7 days you may remove the dressing. If the incision is not draining then you may leave the angi open to air. If there is a little bit of drainage or if the angi are getting stuck on your clothing then cover the incision with a dry dressing. The angi will be removed at your 2 week follow-up appointment. Showering: You may shower with the Silverlon dressing in place. Do not let the shower spray hit the dressing directly. Pat the Silverlon dressing dry. If the dressing becomes wet underneath, then simply remove the dressing. Keep the incision dry until you are 7 days out from the day of surgery. After 7 days you may remove the Silverlon dressing and shower with the angi exposed. Let soapy water run over the angi and pat them dry. Do not scrub or soak the incision. Things To Watch For: * Drainage from the incision site that occurs more than one week after your surgery. * Increased redness at the incision site. * Fever above 102 degrees Fahrenheit. * Unusual chest pain or shortness of breath. * Call [facility] at with any of the above problems Follow-Up Visit: Follow-up with Dr. Rodnon's PA (Audie Beal) 2-3 weeks after your day of surgery. He will remove your angi and answer any questions. If you have any additional questions or concerns, Dr Rondon is usually in the office at the same time and will be available Please make an appointment for a time that works for you. Pending Studies at Discharge: No Stand-Alone Forms: My [facility] Skilled Items Patient informed of condition?: Yes DNR: No Discharge Level of Care: Skilled Communicable Disease: No Discharge Prognosis: Improving Lines: None Urinary Catheter: No (Discontinued at 1030 04/18) Medications and DC Order Prescriptions: New acetaminophen [Tylenol Extra Strength] 500 mg Tablet 1,000 mg PO Q8 14 Days Qty: 84 RF: 0 Continued montelukast 10 mg tablet 10 mg PO HS Qty: 90 RF: 3 cholecalciferol (vitamin D3) [Vitamin D3] 25 mcg (1,000 unit) tablet 50 mcg PO QAM Qty: 90 RF: 3 carvedilol [Coreg] 12.5 mg tablet 12.5 mg PO AMHS RF: 0 hydralazine 50 mg tablet 50 mg PO TID RF: 0 aspirin 81 mg tablet,delayed release (DR/EC) 81 mg PO DAILY Qty: 90 RF: 3 calcitriol 0.25 mcg capsule 0.25 mcg PO QAM Qty: 90 RF: 3 alprazolam 1 mg tablet 1 mg PO AMHS RF: 0 clonidine HCl 0.1 mg tablet 0.1 mg PO AMHS RF: 0 amlodipine 10 mg tablet 10 mg PO DAILY RF: 0 zolpidem 10 mg tablet 10 mg PO HS RF: 0 aripiprazole [Abilify] 10 mg tablet 10 mg PO HS RF: 0 Flovent Diskus 100 mcg/actuation blister with device 1 inh INHALATION BID PRN (Reason: Shortness Of Breath Or Wheezing) RF: 0 albuterol sulfate 90 mcg/actuation HFA aerosol inhaler 2 puff INHALATION Q4 PRN (Reason: Shortness Of Breath Or Wheezing) RF: 0 buspirone 15 mg tablet 15 mg PO TID RF: 0 sertraline 100 mg tablet 200 mg PO DAILY RF: 0 Discharge Orders: Discharge Order (Routine); Ordered 04/18/21 Ordered By: Neto Camargo Admission Data Admit Date/Time: 04/10/21 22:29 Attending Provider: Brad Garcia Admit Provider: Reed Douglas Primary Care Provider: Neri Denson Other Providers: [facility] ; Wellington Mcdaniels [facility] ; Nettie Duncan Other Interventions: Discharge Summary Assessment (RN) Last Done: 04/18/21 11:02 Supervising Physician Co-Signing Physician Notes I personally examined the patient and verified all sosa points of history and exam, discussed case, and agree with decision making with Dr Camargo pain under reasonable control. ready for [facility] for SNF/rehab emphasis vitals noted nad heent nc at mmm breathing unlabored no accessory muscles good effort skin no rashes no pallor or icterus R arm in sling and dressing no tracking erythema humerus fx - post op and stable/recovering well hypoxia - ?OHS/HE + atelectasis most likely. supportive care. outpt sleep study should be arranged for snf/rehab emphasis - otherwise as above, stable today Resident Activity Tracking Resident Involvement: Resident Care Provided Care Provided: Adult Hospital Medicine
[2021-04-18] MEDS: SERTRALINE HCL 100 MG TABLET PO SCH (09:13)
[2021-04-18] MEDS: amLODIPine BESYLATE 5 MG TAB PO SCH (09:13)
[2021-04-18] MEDS: CALCITRIOL 0.25 MCG CAPSULE PO SCH (09:13)
[2021-04-18] MEDS: MULTIVITAMIN TAB PO SCH (09:13)
[2021-04-18] MEDS: hydrALAZINE TAB 50 MG TAB PO SCH (09:13)
[2021-04-18] MEDS: ASPIRIN 81 MG ECTAB PO SCH (09:13)
[2021-04-18] MEDS: busPIRone 15 MG TAB PO SCH (09:14)
[2021-04-18] MEDS: HEPARIN SOD 5,000 UNIT/0.5 ML VIAL SQ SCH (09:14)
[2021-04-18] MEDS: carvediloL 12.5 MG TAB PO SCH (09:14)
[2021-04-18] MEDS: CHOLECALCIFEROL 1,000 UNITS 25 MCG TAB PO SCH (09:14)
[2021-04-18] MEDS: DOCUSATE SODIUM 100 MG CAP PO SCH (09:21)
[2021-04-18] MEDS: cloNIDine HCL 0.1 MG TAB PO SCH (09:29)
[2021-04-18] MEDS: ALPRAZolam 0.5 MG TABLET PO SCH (09:29)
--- NOTE | 2021-04-18 16:42 | Billing Data ---
Date of Service April 18, 2021 Coding Level of Care Code D/C DAY MANAGEMENT <30 MINS
== END 2021-04-18 11:52 | DRG 483 ==
LOC: ED 16:49 → SUATTDRO 22:29 → EDINP 22:29 → 2N 04-11 20:03

== ENCOUNTER 2021-11-20 12:50 | Observation (INO) ==
--- NOTE | 2021-11-20 13:21 | Emergency Department Note ---
Impression & Plan Weakness, UTI (urinary tract infection), CKD (chronic kidney disease) ED Provider Note NAME: AZRA MACEDO AGE: 76 SEX: F : 1945 ARRIVES VIA: Ambulance INFORMANT: Patient ED PROVIDER(S): Brad Negron DO CHIEF COMPLAINT: weakness HPI: Patient is a 76-year-old female who presents to the ER for weakness. This has been present for over a month and has been gradually getting worse. She notes over the past 2 days this has gotten significant worse. Denies any headache or change in vision. No chest pain or shortness of breath. No nausea, vomiting, or diarrhea. No dysuria, urgency, or frequency. No other exacerbating or remitting factors. ROS: See above HPI for pertinent positives & negatives. A total of 10 systems reviewed and were otherwise negative. PAST MEDICAL HISTORY:See Below PAST SURGICAL HISTORY:See Below FAMILY HISTORY:See Below SOCIAL HISTORY:See Below HOME MEDICATIONS:See Below ALLERGIES:See Below VITALS:See Below PHYSICAL EXAMINATION: GENERAL: Sitting up in bed, alert, well appearing, well nourished, no distress, non-toxic EYE EXAM: normal conjunctiva. OROPHARYNX: no exudate, no erythema, lips, buccal mucosa, and tongue normal and mucous membranes are moist NECK: supple, no nuchal rigidity, no adenopathy, non-tender LUNGS: Clear to auscultation. Normal chest wall mechanics HEART: no murmurs, S1 normal and S2 normal ABDOMEN: abdomen soft, non-tender, normo-active bowel sounds, no masses, no rebound or guarding. BACK: Back is symmetrical on inspection and there is no deformity, no midline tenderness, no CVA tenderness. SKIN: no rashes and no bruising UPPER EXTREMITIES: upper extremities are grossly normal. LOWER EXTREMITIES: No pitting edema. NEURO EXAM: Normal sensorium, cranial nerves II-XII grossly intact, normal speech, no gross weakness of arms, no gross weakness of legs. MEDICAL DECISION MAKING: Patient is a 76-year-old female who presents ER for generalized weakness which has been getting worse over the past month. IV was established blood work was obtained. Labs show no significant leukocytosis or anemia. BMP with creatinine of 2.6 which consistent with her previous over the past 2 months but up from baseline of 2. LFTs bilirubin was unremarkable. Lipase was normal. UA with nitrates leuks whites and bacteria. She had no chest pain or shortness of pina th. COVID was negative. Patient was given IV antibiotics. She was updated bedside. Due to her ambulatory dysfunction discussed with the hospitalist Dr. Malik Garcia further evaluation. Triage Nursing notes reviewed. Limited review of prior medical records performed Vital Signs: reviewed and remarkable for HTN Differential diagnosis: Infection, dehydration, metabolic abnormality, hypo/hyperglycemia, electrolyte disturbance, anemia, hypoxia, cardiac sources, intracerebral event, toxicologic, neurologic, as well as other pathologies. ER treatment provided: See below Diagnostics interpreted by me: ECG: none Cardiac Monitoring: An order was placed for continuous cardiac monitoring. The monitor shows a rate of 70 with sinus rhythm. Laboratory studies: As stated above and show below. Imaging studies: See below Consultation(s): Discussed with Malik Garcia for further evaluation Procedures: none Critical Care: None Past Med/Surg History Medical History Anxiety Depression GERD (gastroesophageal reflux disease) HTN (hypertension) Hypercholesterolemia Irregular heart beats follows with Dr. 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) Stroke 11/2020 Wheezing intermittent---reason for inhalers Surgical History History of bilateral tubal ligation History of cholecystectomy History of colonoscopy History of dilatation and curettage History of esophagogastroduodenoscopy (EGD) History of right knee joint replacement History of tooth extraction History of total left knee replacement (TKR) Family History Mother , age 82 of complications of diabetes Heart disease Stroke Family history of diabetes mellitus Grandmother (Maternal) Family history of diabetes mellitus Father , age 80 of liver issues Liver disease Other No family history of adverse response to anesthesia Social History Smoking Status: Former smoker Second Hand Exposure: No; Hx Alcohol Use: No Hx Substance Use: No Preferred Language: Salvadorean Communication Ability: Effective Marketing Director Assisted Living Required: No Beliefs That Will Affect Care: None marital status: Current Living Situation: Spouse current occupational status: retired 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 Feels Safe at Home: Yes Assistive Devices: Cane and Oxygen - Continuous Allergies Allergies Allergy/AdvReac Type Severity Reaction Status Date / Time fentanyl Allergy Intermediate extreme Verified 10/04/21 15:18 confusion/hallucination amoxicillin Allergy Mild Hives Verified 10/04/21 15:18 Penicillins Allergy Mild RASH TO Verified 10/04/21 15:18 AMOXIL, NO RESP PROBLEMS Home Meds Home Medications Medication Instructions Recorded Confirmed alprazolam 1 mg tablet 1 mg PO AMHS 07/19/18 10/04/21 carvedilol 12.5 mg tablet (Coreg) 12.5 mg PO AMHS 01/05/21 10/04/21 sertraline 100 mg tablet 200 mg PO DAILY 02/16/21 10/04/21 amlodipine 10 mg tablet 10 mg PO DAILY 04/10/21 10/04/21 buspirone 15 mg tablet 15 mg PO TID 04/10/21 10/04/21 clonidine HCl 0.1 mg tablet 0.1 mg PO AMHS 04/10/21 10/04/21 zolpidem 10 mg tablet 10 mg PO HS 04/10/21 10/04/21 albuterol sulfate 90 mcg/actuation 2 puff inhalation Q6H PRN 09/14/21 10/04/21 aerosol inhaler fluticasone propionate [Flovent 1 inh inhalation ONCE PRN 09/14/21 10/04/21 HFA] gabapentin 100 mg capsule 100 mg PO BID 09/14/21 10/04/21 brexpiprazole 1 mg tablet (Rexulti) 2 mg PO DAILY 09/21/21 10/04/21 hydralazine 50 mg tablet 50 mg PO BID 10/04/21 10/04/21 Previous Rx's Medication Instructions Recorded montelukast 10 mg tablet 10 mg PO HS #90 tabs 02/17/19 cholecalciferol (vitamin D3) 25 50 mcg PO QAM #90 tabs 09/02/20 mcg (1,000 unit) tablet (Vitamin D3) aspirin 81 mg tablet,delayed 81 mg PO DAILY #90 tabs 04/06/21 release calcitriol 0.25 mcg capsule 0.25 mcg PO QAM #90 caps 04/06/21 furosemide 20 mg tablet 20 mg PO DAILY #90 tabs 10/04/21 Results & Data (ED) Vital Signs Vital Signs - 24 hr 11/20/21 12:56 11/20/21 13:49 Temperature 36.8 C Temperature Source Oral Pulse Rate 73 Respiratory Rate 16 Respiratory Effort / Characteristics Spontaneous Respiratory Depth Normal Respiratory Pattern Regular Blood Pressure 164/66 H Blood Pressure Mean 98 Pulse Oximetry 95 94 Oxygen Delivery Method Room Air Room Air Sepsis Recent Fever Within 48 Hours No Sepsis New/Unexplained Change in Mental Status N/A Sepsis Action Taken by Nursing No Action Required Laboratory Data Result diagrams: 11/20/21 14:42 11/20/21 14:42 Lab Results 11/20/21 11/20/21 11/20/21 Range/Units 13:30 13:45 13:45 WBC Cancelled RBC Cancelled Hgb Cancelled Hct Cancelled MCV Cancelled MCH Cancelled MCHC Cancelled RDW Std Deviation Cancelled RDW Coeff of Chauncey Cancelled Plt Count Cancelled MPV Cancelled Immature Gran % (Auto) Cancelled Neut % (Auto) Cancelled Lymph % (Auto) Cancelled Saunders % (Auto) Cancelled Eos % (Auto) Cancelled Baso % (Auto) Cancelled Neut # (Auto) Cancelled Lymph # (Auto) Cancelled Saunders # (Auto) Cancelled Eos # (Auto) Cancelled Baso # (Auto) Cancelled Immature Gran # (Auto) Cancelled Absolute Nucleated RBC Cancelled Nucleated RBC % (auto) Cancelled Neutrophils % (Manual) Cancelled Band Neutrophils % Cancelled Lymphocytes % (Manual) Cancelled Prolymphocyte % Cancelled Reactive Lymphs % (Man) Cancelled Monocytes % (Manual) Cancelled Eosinophils % (Manual) Cancelled Basophils % (Manual) Cancelled Metamyelocytes % (Man) Cancelled Myelocytes % (Man) Cancelled Promyelocytes % (Man) Cancelled Blast Cells % (Manual) Cancelled Plasma Cell % (Manual) Cancelled Other Cells % Cancelled Nucleated RBC % Cancelled Neutrophils # (Manual) Cancelled Band Neutrophils # Cancelled Total Absolute Neuts Cancelled Lymphocytes # (Manual) Cancelled Prolymphocyte # Cancelled Reactive Lymphs # Cancelled Total Abs Lymphocytes Cancelled Monocytes # (Manual) Cancelled Eosinophils # (Manual) Cancelled Basophils # (Manual) Cancelled Metamyelocytes # (Man) Cancelled Myelocytes # (Manual) Cancelled Promyelocytes # (Man) Cancelled Blast Cells # (Man) Cancelled Plasma Cell # (Manual) Cancelled Other Cells # Cancelled Nucleated RBCs # (Man) Cancelled Hypersegmented Neuts Cancelled Hyposegmented Neuts Cancelled Hypogranular Neuts Cancelled Large Granular Lymphs Cancelled # Lrg Granular Lymphs Cancelled Hairy Cells Cancelled Smudge Cells Cancelled Toxic Granulation Cancelled Toxic Vacuolation Cancelled Dohle Bodies Cancelled Varsha Rods Cancelled Platelet Estimate Cancelled Hypogranular Platelets Cancelled Clumped Platelets Cancelled Giant Platelets Cancelled Platelet Satelliting Cancelled RBC Morphology Cancelled Polychromasia Cancelled Hypochromasia Cancelled Poikilocytosis Cancelled Basophilic Stippling Cancelled Anisocytosis Cancelled Microcytosis Cancelled Macrocytosis Cancelled Spherocytes Cancelled Pappenheimer Bodies Cancelled Sickle Cells Cancelled Target Cells Cancelled Tear Drop Cells Cancelled Ovalocytes Cancelled Stomatocytes Cancelled Caraballo-Higginson Bodies Cancelled Echinocytes Cancelled Acanthocytes (Spur) Cancelled Rouleaux Cancelled RBC Agglutinates Cancelled Schistocytes Cancelled Sezary Cell Cancelled Sodium TNP Potassium TNP Chloride 101 (98-107) mmol/L Carbon Dioxide 28 (21-32) mmol/L Anion Gap TNP BUN 45 H (6-23) mg/dl Creatinine 2.60 H (0.6-1.2) mg/dl Est Cr Clr Drug Dosing 21.2 ml/min Est GFR ( Amer) 20.2 ml/min Est GFR (Non-Af Amer) 17.5 ml/min BUN/Creatinine Ratio 17.3 (10-20) Glucose 110 H (70-99(Fasting)) mg/dl Calcium 9.7 (8.5-10.1) mg/dl Total Bilirubin 0.7 (0.2-1.0) mg/dl AST TNP ALT 16 (7-52) U/L Alkaline Phosphatase 43 (34-104) U/L Total Protein 7.4 (6.0-8.3) gm/dl Albumin 4.1 (3.4-5.0) gm/dl Globulin 3.3 (2.5-4.0) gm/dl Albumin/Globulin Ratio 1.2 (0.9-2) Lipase 18 (11-82) U/L Urine Color Yellow Urine Appearance Clear (Clear) Urine pH 5.0 (4.5-7.5) Ur Specific [place] 1.008 (1.000-1.030) Urine Protein Negative (Negative) Urine Glucose (UA) Negative (Negative) Urine Ketones Negative (Negative) Urine Blood Negative (Negative) Urine Nitrite Positive A (Negative) Urine Bilirubin Negative (Negative) Urine Urobilinogen Negative (Negative) Ur Leukocyte Esterase 1+ H (Negative) Urine WBC (Auto) 10-30 H (0-5) /hpf Urine RBC (Auto) 0-4 (0-4) /hpf U Hyaline Cast (Auto) 1-5 (0-5) /lpf U Epithel Cells (Auto) 10-20 H (0-5) /lpf Urine Bacteria (Auto) 4+ H (Negative) SARS-CoV-2, RNA, NAAT (NEGATIVE) Blood Parasites ID Cancelled 11/20/21 11/20/21 11/20/21 Range/Units 13:45 14:42 14:42 WBC 8.73 RBC 4.04 Hgb 12.5 Hct 38.2 MCV 94.6 MCH 30.9 MCHC 32.7 RDW Std Deviation 47.8 H RDW Coeff of Chauncey 13.7 Plt Count 174 MPV 9.7 Immature Gran % (Auto) 0.9 Neut % (Auto) 70.2 Lymph % (Auto) 19.1 Saunders % (Auto) 6.6 Eos % (Auto) 2.6 Baso % (Auto) 0.6 Neut # (Auto) 6.12 Lymph # (Auto) 1.67 Saunders # (Auto) 0.58 Eos # (Auto) 0.23 Baso # (Auto) 0.05 Immature Gran # (Auto) 0.08 H Absolute Nucleated RBC Nucleated RBC % (auto) Neutrophils % (Manual) Band Neutrophils % Lymphocytes % (Manual) Prolymphocyte % Reactive Lymphs % (Man) Monocytes % (Manual) Eosinophils % (Manual) Basophils % (Manual) Metamyelocytes % (Man) Myelocytes % (Man) Promyelocytes % (Man) Blast Cells % (Manual) Plasma Cell % (Manual) Other Cells % Nucleated RBC % Neutrophils # (Manual) Band Neutrophils # Total Absolute Neuts Lymphocytes # (Manual) Prolymphocyte # Reactive Lymphs # Total Abs Lymphocytes Monocytes # (Manual) Eosinophils # (Manual) Basophils # (Manual) Metamyelocytes # (Man) Myelocytes # (Manual) Promyelocytes # (Man) Blast Cells # (Man) Plasma Cell # (Manual) Other Cells # Nucleated RBCs # (Man) Hypersegmented Neuts Hyposegmented Neuts Hypogranular Neuts Large Granular Lymphs # Lrg Granular Lymphs Hairy Cells Smudge Cells Toxic Granulation Toxic Vacuolation Dohle Bodies Varsha Rods Platelet Estimate Hypogranular Platelets Clumped Platelets Giant Platelets Platelet Satelliting RBC Morphology Polychromasia Hypochromasia Poikilocytosis Basophilic Stippling Anisocytosis Microcytosis Macrocytosis Spherocytes Pappenheimer Bodies Sickle Cells Target Cells Tear Drop Cells Ovalocytes Stomatocytes Caraballo-Higginson Bodies Echinocytes Acanthocytes (Spur) Rouleaux RBC Agglutinates Schistocytes Sezary Cell Sodium 139 Potassium 3.8 Chloride (98-107) mmol/L Carbon Dioxide (21-32) mmol/L Anion Gap BUN (6-23) mg/dl Creatinine (0.6-1.2) mg/dl Est Cr Clr Drug Dosing ml/min Est GFR ( Amer) ml/min Est GFR (Non-Af Amer) ml/min BUN/Creatinine Ratio (10-20) Glucose (70-99(Fasting)) mg/dl Calcium (8.5-10.1) mg/dl Total Bilirubin (0.2-1.0) mg/dl AST 20 ALT (7-52) U/L Alkaline Phosphatase (34-104) U/L Total Protein (6.0-8.3) gm/dl Albumin (3.4-5.0) gm/dl Globulin (2.5-4.0) gm/dl Albumin/Globulin Ratio (0.9-2) Lipase (11-82) U/L Urine Color Urine Appearance (Clear) Urine pH (4.5-7.5) Ur Specific [place] (1.000-1.030) Urine Protein (Negative) Urine Glucose (UA) (Negative) Urine Ketones (Negative) Urine Blood (Negative) Urine Nitrite (Negative) Urine Bilirubin (Negative) Urine Urobilinogen (Negative) Ur Leukocyte Esterase (Negative) Urine WBC (Auto) (0-5) /hpf Urine RBC (Auto) (0-4) /hpf U Hyaline Cast (Auto) (0-5) /lpf U Epithel Cells (Auto) (0-5) /lpf Urine Bacteria (Auto) (Negative) SARS-CoV-2, RNA, NAAT NEGATIVE (NEGATIVE) Blood Parasites ID Administered Medications Discontinued Medications Ceftriaxone Sodium (Rocephin) 2,000 mg in 70 mls @ 140 mls/hr IV NOW STA Stop: 11/20/21 15:07 Last Admin: 11/20/21 15:28 Dose: 140 mls/hr Documented By: TLF Discharge Plan Visit Data Chief Complaint: Weakness ED Provider: Brad Negron Discharge Problem: Weakness, UTI (urinary tract infection), CKD (chronic kidney disease) Forms Stand Alone Forms: [facility] [employer] Prescriptions Prescriptions: No Action montelukast 10 mg tablet 10 mg PO HS Qty: 90 3RF cholecalciferol (vitamin D3) [Vitamin D3] 25 mcg (1,000 unit) tablet 50 mcg PO QAM Qty: 90 3RF carvedilol [Coreg] 12.5 mg tablet 12.5 mg PO AMHS Rx Instructions: must administer with a meal/food aspirin 81 mg tablet,delayed release (DR/EC) 81 mg PO DAILY Qty: 90 3RF calcitriol 0.25 mcg capsule 0.25 mcg PO QAM Qty: 90 3RF Hold Instructions: Home Medication placed on hold at Doctor's office gabapentin 100 mg capsule 100 mg PO BID albuterol sulfate 90 mcg/actuation HFA aerosol inhaler 2 puff inhalation Q6H PRN fluticasone propionate [Flovent HFA] 1 inh inhalation ONCE PRN Rexulti 1 mg tablet 2 mg PO DAILY furosemide 20 mg tablet 20 mg PO DAILY Qty: 90 3RF hydralazine 50 mg tablet 50 mg PO BID Rx Instructions: AM & HS alprazolam 1 mg tablet 1 mg PO AMHS clonidine HCl 0.1 mg tablet 0.1 mg PO AMHS amlodipine 10 mg tablet 10 mg PO DAILY zolpidem 10 mg tablet 10 mg PO HS buspirone 15 mg tablet 15 mg PO TID sertraline 100 mg tablet 200 mg PO DAILY Referrals Referrals: Neri Denson MD [Primary Care Provider] -
[2021-11-20 13:49] LABS: Appearance Urine Clear (Clear); Bacteria Urine Automated 4+ (Negative); Bilirubin Urine Negative (Negative); Blood Urine Negative (Negative); Color Urine Yellow; Glucose Urine UA Negative (Negative); Ketones Urine Negative (Negative); Leukocyte Esterase Urine 1+ (Negative); Nitrite Urine Positive (Negative); Protein Urine Negative (Negative); RBC Urine Automated 0-4 /hpf (0-4); Specific Gravity Urine 1.008 (1.000-1.030); Urobilinogen Urine Negative (Negative)
[2021-11-20 14:15] LABS: Alanine Aminotransferase 16 U/L (7-52); Albumin Globulin Ratio 1.2 (0.9-2); Albumin Level 4.1 gm/dl (3.4-5.0); Alkaline Phosphatase 43 U/L (34-104); BUN Creatinine Ratio 17.3 (10-20); Bilirubin,Total 0.7 mg/dl (0.2-1.0); Blood Urea Nitrogen 45 mg/dl (6-23); Calcium 9.7 mg/dl (8.5-10.1); Carbon Dioxide 28 mmol/L (21-32); Chloride 101 mmol/L (98-107); Creatinine Clr Calc Pharmacy 21.2 ml/min; Est GFR (African American) 20.2 ml/min; Est GFR (Non-African American) 17.5 ml/min; Globulin 3.3 gm/dl (2.5-4.0); Glucose 110 mg/dl (70-99(Fasting)); Lipase 18 U/L (11-82); Total Protein 7.4 gm/dl (6.0-8.3)
[2021-11-20] MEDS ORDERED: cefTRIAXone SODIUM 2,000 MG/70 ML BAG IV STA (14:38)
[2021-11-20 15:01] LABS: Basophils # (auto) 0.05 K/uL (0-0.2); Basophils % (auto) 0.6 %; Eosinophils # (auto) 0.23 K/uL (0-0.50); Eosinophils % (auto) 2.6 %; Hematocrit (blood only) 38.2 % (34.1-44.9); Hemoglobin 12.5 g/dl (12.0-16.0); Immature Granulocytes # (auto) 0.08 K/uL (0.00-0.02); Immature Granulocytes % (auto) 0.9 %; Lymphocytes # (auto) 1.67 K/uL (1.2-3.4); Lymphocytes % (auto) 19.1 %; Mean Corpuscular Hemoglobin 30.9 pg (25.0-34.0); Mean Corpuscular Hgb Conc 32.7 g/dL (32.0-36.0); Mean Corpuscular Volume 94.6 fL (80.0-100.0); Mean Platelet Volume 9.7 fL (9.4-12.3); Monocytes # (auto) 0.58 K/uL (0.24-0.82); Monocytes % (auto) 6.6 %; Neutrophils # (auto) 6.12 K/uL (1.4-6.5); Neutrophils % (auto) 70.2 %; Platelet Count 174 K/uL (130-400); RDW Coefficient of Variation 13.7 % (11.5-14.5); RDW Standard Deviation 47.8 fL (36.4-46.3); Red Blood Count 4.04 M/uL (3.93-5.22); White Blood Count 8.73 K/ul (4.8-10.8)
[2021-11-20 15:27] LABS: Potassium 3.8 mmol/L (3.5-5.1)
--- NOTE | 2021-11-20 15:37 | History & Physical Report ---
Date of Service November 20, 2021 Assessment & Plan (1) Generalized weakness: Plan: Without focal nuerological deficit or ataxia - DDX: UTI vs. electrolyte abnormality vs. B12 deficiency vs. Endocrine vs. morbid obesity/deconditioning vs. medications vs. 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 left extremity mild weakness - As above may have worsening of weakenss from UTI- follow - Continue ASA - Thought to be secondary to HTN - not on statin therapy - BP control on multiple agents continue (3) Chronic kidney disease: Plan: SONIDO II on CKD IIIb - as above obtain CT abd/pelvis eval for any obstructive path - urine without protien or blood - renally dose medications - BP control - follow hemodynamics- - Hold Lasix (4) HTN (hypertension): Plan: Fluctuations in BP between controlled and poorly controlled - Continue Carvedilol, Hydralazine, Amlodipine, Clonidine - Follows with Nephrology (5) Major depressive disorder: Plan: Patient follows with [facility] for her mood disturbances - BuSpar, Wellbutrin, Rexulti, Xanax, Zoloft - Ambien at bedtime - may be effecting #2 (6) Anxiety: Plan: As above - Xanax BID PRN (7) Morbid obesity: Plan: Patient may benefit from bariatric medicine consultation to decrease overall CV mortality/morbidity as well as assisting with her mobility History of Present Illness Primary Care Provider: Neri Denson MD 76 YOF with medical history of: Ambulatory dysfunction, frequent falls, CVA (intraparenchymal hemorrhage), vertigo vs. orthostasis, CKD IIIB, MDD, Anxiety. Patient comes to the EMD today for complaints of weakness. This has been ongoing for over a month or so, but acutely worsening over the past week for the patient. She reports that she can't even get up and go to the bathroom without feeling like she is going to fall. She is accompanied by her who endorses that she did lower herself to the floor while in the bathroom today, he was able to help her up and get her back into the living room. She endorses overall weakness without any significant complaint. Patient has not followed up with PCP regarding this issue. does endorse that he tried to call this morning but unable to get through so he brought her here. In the EMD the patient had routine labs performed to include UA. She was noted to have an abnormal UA, increase in her BUN and QA INTERN. She endorses that she is eating and drinking at home without any fevers chills or abdominal pain. She has no focal weakness or abnormal neurological exam. Patient will be admitted to medical surgical floor, continue IV Rocephin for UTI and await cultures. Will send B12, Folate, CK, PO4 level in the AM. Obtain CT abd/pel without contrast identify any kidney stones. COVID test on admission is: NEGATIVE Allergies Allergy/AdvReac Type Severity Reaction Status Date / Time fentanyl Allergy Intermediate extreme Verified 10/04/21 15:18 confusion/hallucination amoxicillin Allergy Mild Hives Verified 10/04/21 15:18 Penicillins Allergy Mild RASH TO Verified 10/04/21 15:18 AMOXIL, NO RESP PROBLEMS Home Medications Medication Instructions Recorded Confirmed Type alprazolam 1 mg tablet 1 mg PO AMHS 07/19/18 10/04/21 History montelukast 10 mg tablet 10 mg PO HS #90 tabs 02/17/19 10/04/21 Rx cholecalciferol (vitamin D3) 25 50 mcg PO QAM #90 tabs 09/02/20 10/04/21 Rx mcg (1,000 unit) tablet (Vitamin D3) carvedilol 12.5 mg tablet (Coreg) 12.5 mg PO AMHS 01/05/21 10/04/21 History sertraline 100 mg tablet 200 mg PO DAILY 02/16/21 10/04/21 History aspirin 81 mg tablet,delayed 81 mg PO DAILY #90 tabs 04/06/21 10/04/21 Rx release calcitriol 0.25 mcg capsule 0.25 mcg PO QAM #90 caps 04/06/21 10/04/21 Rx amlodipine 10 mg tablet 10 mg PO DAILY 04/10/21 10/04/21 History buspirone 15 mg tablet 15 mg PO TID 04/10/21 10/04/21 History clonidine HCl 0.1 mg tablet 0.1 mg PO AMHS 04/10/21 10/04/21 History zolpidem 10 mg tablet 10 mg PO HS 04/10/21 10/04/21 History albuterol sulfate 90 mcg/actuation 2 puff inhalation Q6H PRN 09/14/21 10/04/21 History aerosol inhaler fluticasone propionate [Flovent 1 inh inhalation ONCE PRN 09/14/21 10/04/21 History HFA] gabapentin 100 mg capsule 100 mg PO BID 09/14/21 10/04/21 History brexpiprazole 1 mg tablet (Rexulti) 2 mg PO DAILY 09/21/21 10/04/21 History furosemide 20 mg tablet 20 mg PO DAILY #90 tabs 10/04/21 10/04/21 Rx hydralazine 50 mg tablet 50 mg PO BID 10/04/21 10/04/21 History Past Med/Surg History Medical History Anxiety Depression GERD (gastroesophageal reflux disease) HTN (hypertension) Hypercholesterolemia Irregular heart beats follows with Dr. 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) Stroke 11/2020 Wheezing intermittent---reason for inhalers Surgical History History of bilateral tubal ligation History of cholecystectomy History of colonoscopy History of dilatation and curettage History of esophagogastroduodenoscopy (EGD) History of right knee joint replacement History of tooth extraction History of total left knee replacement (TKR) Family History Mother , age 82 of complications of diabetes Heart disease Stroke Family history of diabetes mellitus Grandmother (Maternal) Family history of diabetes mellitus Father , age 80 of liver issues Liver disease Other No family history of adverse response to anesthesia Social History Smoking Status: Former smoker Second Hand Exposure: No; Hx Alcohol Use: No Hx Substance Use: No Preferred Language: Ugandan Communication Ability: Effective Configuration Management Consultant Required: No Beliefs That Will Affect Care: None marital status: Current Living Situation: Spouse current occupational status: retired 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 Feels Safe at Home: Yes Assistive Devices: Cane and Oxygen - Continuous Review of Systems Review of Systems: REVIEW OF SYSTEMS: Constitutional: No fever, sweats or chills Eyes: No diplopia, no worsening or blurred vision ENT: normal hearing, no trouble swallowing Respiratory: No cough, sputum, dyspnea at rest or on exertion Cardiovascular: No chest pain, tightness or palpitations Abdomen: No pain, nausea, vomiting, diarrhea or constipation Musculoskeletal: No joint pain, calf pain, swelling Neurologic: (+) generalized weakness, with falls NO numbness/tingling Psychiatric:(+) anxiety/Depression Skin: No rash or itch Physical Exam Physical Exam: PHYSICAL EXAM: General: awake, alert, flat affect Head: Normocephalic, atraumatic ENT: PERRL, EOMI, no pharyngeal exudate, mucous membranes moist Neuro: AAO x 3, speech clear and appropriate, strength intact bilaterally 5/5, sensation intact and equal all extremities and dermatomes, no pronator drift, no ataxia Chest: equal rise and fall of the chest, no accessory muscle use, no heaves or thrills, decreased in bases secondary to body habitus, on room air, Cardiac: Regular rate and rhythm, telemetry reviewed, skin warm dry, cap refill <3 seconds, peripheral pules +2 no JVD, no murmur, no edema GI: NABS x 4 quadrants, soft, nontender to palpation, no rebound, guarding or tenderness : Spontaneously voiding, no pain, no CVA tenderness, Extremities: Normal inspection, no peripheral edema or erythema, calfs nontender to palpation Psych: flat affect Skin: no rash or erythema Results & Data Results & Data ([facility]) Vital Signs (Past 12 Hours) Vital Signs Temp Pulse Resp BP Pulse Ox O2 Del Method 11/20/21 13:49 94 Room Air 11/20/21 12:56 36.8 C 73 16 164/66 H 95 Room Air Laboratory Results Abnormal lab results 11/20/21 11/20/21 11/20/21 Range/Units 13:30 13:45 14:42 RDW Std Deviation 47.8 H (36.4-46.3) fL Immature Gran # (Auto) 0.08 H (0.00-0.02) K/uL BUN 45 H (6-23) mg/dl Creatinine 2.60 H (0.6-1.2) mg/dl Glucose 110 H (70-99(Fasting)) mg/dl Urine Nitrite Positive A (Negative) Ur Leukocyte Esterase 1+ H (Negative) Urine WBC (Auto) 10-30 H (0-5) /hpf U Epithel Cells (Auto) 10-20 H (0-5) /lpf Urine Bacteria (Auto) 4+ H (Negative) Diagnostic Findings CT abd/pel pending Medications Administered Home Medications alprazolam 1 mg tablet 1 mg PO AMHS 07/19/18 [History Confirmed 10/04/21] montelukast 10 mg tablet 10 mg PO HS #90 tabs 02/17/19 [Rx Confirmed 10/04/21] cholecalciferol (vitamin D3) 25 mcg (1,000 unit) tablet (Vitamin D3) 50 mcg PO QAM #90 tabs 09/02/20 [Rx Confirmed 10/04/21] carvedilol 12.5 mg tablet (Coreg) 12.5 mg PO AMHS 01/05/21 [History Confirmed 10/04/21] sertraline 100 mg tablet 200 mg PO DAILY 02/16/21 [History Confirmed 10/04/21] aspirin 81 mg tablet,delayed release 81 mg PO DAILY #90 tabs 04/06/21 [Rx Confirmed 10/04/21] calcitriol 0.25 mcg capsule 0.25 mcg PO QAM #90 caps 04/06/21 [Rx Confirmed 10/04/21] amlodipine 10 mg tablet 10 mg PO DAILY 04/10/21 [History Confirmed 10/04/21] buspirone 15 mg tablet 15 mg PO TID 04/10/21 [History Confirmed 10/04/21] clonidine HCl 0.1 mg tablet 0.1 mg PO AMHS 04/10/21 [History Confirmed 10/04/21] zolpidem 10 mg tablet 10 mg PO HS 04/10/21 [History Confirmed 10/04/21] albuterol sulfate 90 mcg/actuation aerosol inhaler 2 puff inhalation Q6H PRN 09/14/21 [History Confirmed 10/04/21] fluticasone propionate [Flovent HFA] 1 inh inhalation ONCE PRN 09/14/21 [History Confirmed 10/04/21] gabapentin 100 mg capsule 100 mg PO BID 09/14/21 [History Confirmed 10/04/21] brexpiprazole 1 mg tablet (Rexulti) 2 mg PO DAILY 09/21/21 [History Confirmed 10/04/21] furosemide 20 mg tablet 20 mg PO DAILY #90 tabs 10/04/21 [Rx Confirmed 10/04/21] hydralazine 50 mg tablet 50 mg PO BID 10/04/21 [History Confirmed 10/04/21] Discontinued Medications Ceftriaxone Sodium (Rocephin) 2,000 mg in 70 mls @ 140 mls/hr IV NOW STA Stop: 11/20/21 15:07 Last Admin: 11/20/21 15:28 Dose: 140 mls/hr Documented By: TLF ECG Additional Comments: not indicated/performed Code Status & VTE Plan Code Status CODE: FULL VTE: SCDs, Heparin 5000 units TID VTE Prophylaxis Plan VTE Prophylaxis will be ordered: Yes Supervising Physician Co-Signing Physician Notes Patient seen and examined, chart reviewed, case discussed with FIDEL Solo and I agree with the assessment and plan as above except as otherwise noted Labs and images reviewed Patient is a 76-year-old female with past medical history of MDD, GERD, hypertension, CKD, secondary hyperparathyroidism, hyperlipidemia, ICH, and morbid obesity with BMI 46 who presents the ER for weakness progressively worsening over 1 month. At bedside patient is in no acute distress, endorses global fatigue. Somewhat tearful, reports she just does not feel well overall but does not offer specific complaints. Last peed a little while ago, denies dysuria. Denies pain. Breathing is unlabored, abdomen is without guarding/acut e tenderness/rebound she has had resolved ambulatory dysfunction, frequent falls. Mildly hypertensive on admission, no leukocytosis, sodium and potassium are normal, creatinine is 2.6 from baseline of approximately 1.62.2, UA is infected appearing. COVID is negative. PT/OT pending, likely to need placement continue empiric Rocephin pending cultures. Chronic medical issues as above. PG Care Time/CCT Total # of Minutes Spent Total Time Spent with Patient: Total time spent is greater than 50% in coordination of care (as documented) at patient's floor/unit and/or counseling patient: Coding Level of Care Code INT OBSERVATION CARE 70M LVL 3 Diagnoses Generalized weakness R53.1 Stroke I63.9 CVA mechanism: unspecified Chronic kidney disease N18.9 HTN (hypertension) I10 Major depressive disorder F32.9 Anxiety F41.9 Morbid obesity E66.01 (1) Stroke CVA mechanism: unspecified Qualified Code(s): I63.9 - Cerebral infarction, unspecified
--- NOTE | 2021-11-20 17:23 | CT Scan Report ---
ABDOMEN AND PELVIS CT WITHOUT CONTRAST CT DOSE: 1222.95 mGy.cm HISTORY: Weakness. 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 A dose lo wering technique was utilized adhering to the principles of ALARA. COMPARISON STUDY: Abdomen and pelvis CT 08/12/2020. FINDINGS: The lung bases are essentially clear. No pneumoperitoneum. No pneumatosis. No acute fractur es within the visualized osseous structures. Small fat-containing supraumbilical hernias. This remain s unchanged. The bladder is unremarkable. Mild pelvic floor collapse. The uterus and adnexa are withi n normal limits. No pelvic free fluid. The unenhanced liver, spleen, adrenal glands, and pancreas unr emarkable. Small left peripelvic renal cysts, unchanged. This is stable 3.9 cm right renal hypodense lesion which also favors a cyst. Bilateral perinephric edema which is likely chronic. There is mild t o moderate bilateral cortical renal scarring. Prior cholecystectomy. No retroperitoneal lymphadenopat hy. Normal caliber abdominal aorta. Suboptimal evaluation for bowel pathology due to the lack of intr avenous and oral contrast. However, there is no definite bowel wall thickening or obstruction. A few colonic diverticula. No evidence for acute diverticulitis. Normal appendix. IMPRESSION: 1. No renal or ureteral stones. No hydronephrosis. 2. Normal bladder. 3. Colonic diverticulosis. No evidence for acute diverticulitis. 4. Prior cholecystectomy. 5. No bowel wall thickening or obstruction. 6. Additional findings as described above. ACT 112: Negative or not required by law. Electronically signed by: Omero Santana M.D. 11/20/2021 5:21 PM
[2021-11-20] MEDS ORDERED: ALBUTEROL HFA 8 GM INHALER INH PRN (17:44)
[2021-11-20] MEDS ORDERED: busPIRone 15 MG TAB PO SCH (21:00)
[2021-11-20] MEDS: hydrALAZINE TAB 50 MG TAB PO SCH (21:21)
[2021-11-20] MEDS: carvediloL 12.5 MG TAB PO SCH (21:22)
[2021-11-20] MEDS: cloNIDine HCL 0.1 MG TAB PO SCH (21:22)
[2021-11-20] MEDS: HEPARIN SOD 5,000 UNIT/0.5 ML VIAL SQ SCH (21:23)
[2021-11-20] MEDS: MONTELUKAST SODIUM 10 MG TABLET PO SCH (21:23)
[2021-11-20] MEDS: GABAPENTIN 100 MG CAP PO SCH (21:23)
[2021-11-21] MEDS: HEPARIN SOD 5,000 UNIT/0.5 ML VIAL SQ SCH ×3 (05:47→21:02)
[2021-11-21 08:29] LABS: Basophils # (auto) 0.05 K/uL (0-0.2); Basophils % (auto) 0.6 %; Eosinophils # (auto) 0.33 K/uL (0-0.50); Hematocrit (blood only) 36.2 % (34.1-44.9); Hemoglobin 11.9 g/dl (12.0-16.0); Immature Granulocytes # (auto) 0.06 K/uL (0.00-0.02); Immature Granulocytes % (auto) 0.7 %; Lymphocytes # (auto) 1.53 K/uL (1.2-3.4); Lymphocytes % (auto) 18.8 %; Mean Corpuscular Hemoglobin 31.3 pg (25.0-34.0); Mean Corpuscular Hgb Conc 32.9 g/dL (32.0-36.0); Mean Corpuscular Volume 95.3 fL (80.0-100.0); Mean Platelet Volume 9.4 fL (9.4-12.3); Monocytes # (auto) 0.68 K/uL (0.24-0.82); Monocytes % (auto) 8.3 %; Neutrophils # (auto) 5.51 K/uL (1.4-6.5); Neutrophils % (auto) 67.6 %; Platelet Count 175 K/uL (130-400); RDW Coefficient of Variation 13.8 % (11.5-14.5); RDW Standard Deviation 48.6 fL (36.4-46.3); White Blood Count 8.16 K/ul (4.8-10.8)
--- NOTE | 2021-11-21 08:40 | XRay Report ---
XR chest 1V portable HISTORY: generalized weakness ?pneumonia COMPARISON: Chest 04/16/2020. FINDINGS: Stable mild cardiomegaly. There are low lung volumes. No focal lung consolidations to sugge st pneumonia. No evidence for pulmonary edema. Mild interstitial thickening, unchanged. This is likel y chronic. No pleural effusions. No pneumothorax. There is a right shoulder prosthesis. IMPRESSION: No significant change compared to the prior study. No acute process. ACT 112: Negative or not required by law. Electronically signed by: Omero Santana M.D. 11/21/2021 8:39 AM
[2021-11-21 08:56] LABS: BUN Creatinine Ratio 16.9 (10-20); Calcium 9.6 mg/dl (8.5-10.1); Creatinine Clr Calc Pharmacy 23.9 ml/min; Est GFR (African American) 23.4 ml/min; Est GFR (Non-African American) 20.2 ml/min; Magnesium 2.1 mg/dl (1.7-2.4); Phosphorus 3.1 mg/dl (2.5-4.9); Potassium 3.6 mmol/L (3.5-5.1)
[2021-11-21] MEDS ORDERED: BREXPIPRAZOLE 3 MG PO SCH (09:00)
[2021-11-21] MEDS ORDERED: SERTRALINE HCL 100 MG TABLET PO SCH (09:00)
[2021-11-21 09:02] LABS: Cortisol AM 22.05 mcg/dl (6.2-22.6)
--- NOTE | 2021-11-21 09:04 | Electrocardiogram Report ---
Test Reason : Blood Pressure : / mmHG Vent. Rate : 068 BPM Atrial Rate : 068 BPM P-R Int : 210 ms QRS Dur : 102 ms QT Int : 394 ms P-R-T Axes : 038 008 021 degrees QTc Int : 418 ms Sinus rhythm with 1st degree A-V block Poor R wave progression, consider anterior HI vs. lead placement vs. LVH T-wave inversion in Anterior leads , consider ischemia Abnormal ECG When compared with ECG of 10-APR-2021 21:19, T wave inversion now evident in Anterior leads Confirmed by Brandon Castaneda ([id number]) on 11/21/2021 9:04:12 AM Referred By: REFERRED SELF Confirmed By:Brandon Castaneda
[2021-11-21 09:05] LABS: Thyroid Stimulating Hormone 5.115 uIu/ml (0.300-4.500)
[2021-11-21 09:15] LABS: Folate (Folic Acid) 6.73 ng/ml (>5.38)
[2021-11-21] MEDS: GABAPENTIN 100 MG CAP PO SCH ×2 (09:18→21:01)
[2021-11-21] MEDS: carvediloL 12.5 MG TAB PO SCH ×2 (09:18→21:01)
[2021-11-21] MEDS: CALCITRIOL 0.25 MCG CAPSULE PO SCH (09:19)
[2021-11-21] MEDS: amLODIPine BESYLATE 5 MG TAB PO SCH (09:19)
[2021-11-21] MEDS: buPROPion HCl 100 MG TABLET PO SCH (09:19)
[2021-11-21] MEDS: cloNIDine HCL 0.1 MG TAB PO SCH (09:19)
[2021-11-21] MEDS: hydrALAZINE TAB 50 MG TAB PO SCH ×2 (09:19→21:00)
[2021-11-21] MEDS: ASPIRIN 81 MG ECTAB PO SCH (09:19)
[2021-11-21] MEDS: FLUTICASONE FUROATE 100MCG 14 PUFFS/INHALER INH SCH (09:20)
[2021-11-21 09:35] LABS: T4 Free Thyroxine 0.78 ng/dl (0.61-1.60)
[2021-11-21] MEDS ORDERED: ONDANSETRON INJ 2 MG/ML 2 ML VIAL IV PRN (10:34)
[2021-11-21] MEDS: ALPRAZolam 0.5 MG TABLET PO PRN ×2 (10:47→21:00)
[2021-11-21 11:38] LABS: Adenovirus F 40/41 PCR Not Detected (NotDetected); Astrovirus PCR Not Detected (NotDetected); Campylobacter PCR Not Detected (NotDetected); Clostridium diff Toxin A/B PCR Not Detected (NotDetected); Cryptosporidium PCR Not Detected (NotDetected); Cyclospora cayetanensis PCR Not Detected (NotDetected); Entamoeba histolytica PCR Not Detected (NotDetected); Enteroaggregative E.coli(EAEC) Not Detected (NotDetected); Enteropathogenic E.coli (EPEC) Not Detected (NotDetected); Enterotoxigenic E.coli (ETEC) Not Detected (NotDetected); Giardia lamblia PCR Not Detected (NotDetected); Norovirus GI/GII PCR Not Detected (NotDetected); Plesiomonas shigelloides PCR Not Detected (NotDetected); Rotavirus A PCR Not Detected (NotDetected); Salmonella PCR Not Detected (NotDetected); Sapovirus PCR Not Detected (NotDetected); Shiga-like Toxin E.coli (STEC) Not Detected (NotDetected); Shigella/Enteroinvasive E.coli Not Detected (NotDetected); Vibrio cholerae PCR Not Detected (NotDetected); Vibrio species PCR Not Detected (NotDetected); Yersinia enterocolitica PCR Not Detected (NotDetected)
[2021-11-21] MEDS ORDERED: DEXTROSE 5% IV SCH (14:00)
[2021-11-21] MEDS ORDERED: cefTRIAXone SODIUM 2,000 MG in DEXTROSE 5% 50 ML IV SCH (14:00)
[2021-11-21] MEDS ORDERED: CEFTRIAXONE SODIUM IV SCH (14:00)
[2021-11-21] MEDS: CYANOCOBALAMIN 1000 MCG/ML VIAL IM SCH (18:12)
--- NOTE | 2021-11-21 19:16 | Hospitalist Progress Note ---
Date of Service November 21, 2021 Assessment & Plan (1) Generalized weakness: Plan: Without focal neurological deficit or ataxia - DDX: UTI vs. electrolyte abnormality vs. B12 deficiency vs. Endocrine vs. morbid obesity/deconditioning vs. medications vs. other - Continue with Rocephin follow cultures - B12 low normal - start cyanocobalamin 1mg IM daily for 3 days then switch to PO\\ - TSH elevated and free T4 low normal - start levothyroxine 25 mcg PO daily - Cortisol WNL - PT/OT consultation - will likely need rehab following admission - will consult psychiatry for review of her psychiatric medications (2) UTI (urinary tract infection): Plan: No specific urinary Sx but given generalized weakness difficult to rule out this is not contributory. Continue ceftriaxone 2g IV daily pending urine culture. (3) Dizziness: Plan: ?new onset vertigo. Given history of prior CVA will get MRI brain to rule this out. Most likely secondary to her BP medications especially combination of carvedilol and clonidine. Possible worse in setting of UTI Stop clonidine. 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 left extremity mild weakness - As above may have worsening of weakenss from UTI- follow - Continue ASA - Thought to be secondary to HTN - not on statin therapy - BP control on multiple agents continue (5) Chronic kidney disease: Plan: SONIDO II on CKD IIIb - as above obtain CT abd/pelvis unremakrable - urine without protein or blood - renally dose medications - BP control - follow hemodynamics- - Hold Lasix (6) HTN (hypertension): Plan: Fluctuations in BP between controlled and poorly controlled - Continue Carvedilol, Hydralazine, Amlodipine. Stop clonidine as above - Follows with Nephrology (7) Major depressive disorder: Plan: Patient follows with [facility] for her mood disturbances - BuSpar, Wellbutrin, Rexulti, Xanax, Zoloft - Ambien at bedtime - may be effecting #2 - Consult psychiatry to review meds (8) Anxiety: Plan: As above - Xanax BID PRN (9) Morbid obesity: Plan: Patient may benefit from bariatric medicine consultation to decrease overall CV mortality/morbidity as well as assisting with her mobility Plan VTE Prophylaxis - heparin 5000 units SQ Q8H Diet - T2DM Disposition - continued admission on med/surg Admission and Anticipated Discharge Date Admission Date: November 20, 2021 Subjective Difficult to get a clear history and symptoms from patient. Her major complaint today is dizziness which is possible worse on sitting up and but lightheadedness and vertigo. This was present " a little bit" at home but much more significant starting this morning. She reportedly feels worse today than yesterday although her at bedside reports she is much more awake today. She denies any URI or urinary symptoms. No nausea, vomiting or abdominal pain. No fever or chills. Her ongoing concern however is generalized weakness. Difficult to get a timeline for this but possible worse over the last month but much worse over the last few days. They both report concerns about her psychiatric medications prescribed by [facility]. She was recently increased her Rexulti and her reports he found out later he was inappropriately cutting the old pills to make the new diagnosis. Review of Systems Review of Systems: All systems reviewed & are unremarkable except as noted in Subjective Physical Exam Constitutional: well developed and + morbidly obese; + not well nourished and no acute distress Eyes: PERRL, conjunctivae normal, anicteric sclerae ENMT: external ear and nose normal, oropharynx normal Neck: trachea midline, no thyromegaly + short neck and + thick neck Respiratory: normal respiratory effort, lungs clear to auscultation Cardiovascular: Rate/Rhythm: regular rate and regular rhythm Heart Sounds: + murmur (2/6 systolic, pt reports longstanding) Gastrointestinal (Abdomen): normal bowel sounds, soft, nontender, no hepatosplenomegaly Skin: no rashes, warm and dry Neurologic: moves all extremities and awake; no focal motor deficits and not confused Speech / Cognition: normal speech Psychiatric: A+Ox3, euthymic affect Results & Data Results & Data ([facility]) Vital Signs (Past 12 Hours) Vital Signs Temp Pulse Resp BP Pulse Ox O2 Del Method 11/21/21 15:18 36.8 C 72 16 111/68 93 Room Air 11/21/21 11:00 36.5 C 80 18 152/81 H 94 Room Air PG Care Time/CCT Total # of Minutes Spent Total Time Spent with Patient: Total time spent is greater than 50% in coordination of care (as documented) at patient's floor/unit and/or counseling patient: Coding Level of Care Code 14180 Subseq Hosp Care Lvl 2 Diagnoses Generalized weakness R53.1 UTI (urinary tract infection) N39.0 Dizziness R42 Stroke I63.9 CVA mechanism: unspecified Chronic kidney disease N18.9 HTN (hypertension) I10 Major depressive disorder F32.9 Anxiety F41.9 Morbid obesity E66.01 (1) Stroke CVA mechanism: unspecified Qualified Code(s): I63.9 - Cerebral infarction, unspecified
--- NOTE | 2021-11-21 20:37 | Magnetic Resonance Report ---
MRI OF THE BRAIN WITHOUT CONTRAST CLINICAL HISTORY: new onset vertigo COMPARISON STUDY: MRI of the brain February 20, 2021. TECHNIQUE: Utilizing a 1.5 Yen magnet and dedicated coil, multiplanar, multiecho imaging of the bra in was performed without IV contrast. FINDINGS: There are no foci of restricted diffusion to suggest acute infarct. No acute intrathoracic cranial hemorrhage, midline shift or mass effect is present. Ventricular system is unremarkable. Basa l cisterns are patent. There are no extra axial collections. Flow-voids for the major intracranial ve ssels are present. An old periventricular infarct within the left frontal lobe remains unchanged. Hem osiderin deposition within the right parietal lobe represents expected evolution from an previously d escribed intraparenchymal hematoma. White matter T2 hyperintense foci favor mild small vessel disease . These are unchanged. Calvarial signal is normal. No intracranial masses are identified on this unen hanced exam. IMPRESSION: 1. No acute intracranial findings. 2. Expected evolution of the old right parietal lobe intraparenchymal hematoma with hemosiderin depos ition. 2. Old periventricular infarct within the left frontal lobe, unchanged. ACT 112: Negative or not required by law. Electronically signed by: Deshawn Joiner M.D. 11/21/2021 8:34 PM
[2021-11-21] MEDS: MONTELUKAST SODIUM 10 MG TABLET PO SCH (21:01)
[2021-11-22] MEDS ORDERED: ACETAMINOPHEN 1000 MG/100 ML IV IV PRN (01:37)
[2021-11-22] MEDS ORDERED: ACETAMINOPHEN 500 MG TAB PO PRN (01:46)
[2021-11-22] MEDS: LEVOTHYROXINE SODIUM 25 MCG TABLET PO SCH (05:27)
[2021-11-22] MEDS: HEPARIN SOD 5,000 UNIT/0.5 ML VIAL SQ SCH ×3 (05:27→21:32)
[2021-11-22 07:53] LABS: Basophils # (auto) 0.05 K/uL (0-0.2); Basophils % (auto) 0.7 %; Eosinophils # (auto) 0.41 K/uL (0-0.50); Eosinophils % (auto) 5.5 %; Hematocrit (blood only) 35.5 % (34.1-44.9); Hemoglobin 11.3 g/dl (12.0-16.0); Immature Granulocytes # (auto) 0.05 K/uL (0.00-0.02); Immature Granulocytes % (auto) 0.7 %; Lymphocytes # (auto) 1.98 K/uL (1.2-3.4); Lymphocytes % (auto) 26.4 %; Mean Corpuscular Hgb Conc 31.8 g/dL (32.0-36.0); Mean Corpuscular Volume 97.5 fL (80.0-100.0); Mean Platelet Volume 10.6 fL (9.4-12.3); Monocytes # (auto) 0.79 K/uL (0.24-0.82); Monocytes % (auto) 10.5 %; Neutrophils # (auto) 4.21 K/uL (1.4-6.5); Neutrophils % (auto) 56.2 %; Platelet Count 147 K/uL (130-400); RDW Standard Deviation 50.2 fL (36.4-46.3); Red Blood Count 3.64 M/uL (3.93-5.22); White Blood Count 7.49 K/ul (4.8-10.8)
[2021-11-22] MEDS: FLUTICASONE FUROATE 100MCG 14 PUFFS/INHALER INH SCH (08:24)
[2021-11-22] MEDS: hydrALAZINE TAB 50 MG TAB PO SCH ×2 (08:25→21:36)
[2021-11-22] MEDS: GABAPENTIN 100 MG CAP PO SCH ×2 (08:25→21:33)
[2021-11-22] MEDS: buPROPion HCl 100 MG TABLET PO SCH (08:25)
[2021-11-22] MEDS: CYANOCOBALAMIN 1000 MCG/ML VIAL IM SCH (08:25)
[2021-11-22] MEDS: carvediloL 12.5 MG TAB PO SCH ×2 (08:25→21:36)
[2021-11-22] MEDS: LIDOCAINE 5% 1 PATCH TD SCH ×2 (08:25)
[2021-11-22] MEDS: ASPIRIN 81 MG ECTAB PO SCH (08:25)
[2021-11-22] MEDS: CALCITRIOL 0.25 MCG CAPSULE PO SCH (08:25)
[2021-11-22] MEDS: amLODIPine BESYLATE 5 MG TAB PO SCH (08:25)
[2021-11-22] MEDS: ALPRAZolam 0.5 MG TABLET PO PRN (08:26)
[2021-11-22 08:28] LABS: BUN Creatinine Ratio 14.6 (10-20); Calcium 9.4 mg/dl (8.5-10.1); Creatinine Clr Calc Pharmacy 24.4 ml/min; Est GFR (Non-African American) 20.7 ml/min; Magnesium 2.1 mg/dl (1.7-2.4); Potassium 3.5 mmol/L (3.5-5.1)
--- NOTE | 2021-11-22 12:55 | Psychiatric Consultation ---
Date of Consultation November 22, 2021 Impression / Recommendations Impression 76 yo woman admitted for weakness on multiple psychiatric medications which could be contributing to possible orthostatic hypotension/fatigue/weakness. Work on getting [facility] records to confirm if any medication adjustments have occurred recently which would correlate with worsening weakness in the last month. Acute risk of harm is low given denial of SI. Given her age would recommend that her outpatient provider attempt to reduce polypharmacy as tolerated. Could consider transition here from xanax to Klonopin which is longer acting and should allow for easier taper to discontinuation over time. Reviewed with patient and daughter significant risks with benzos especially with her age including falls, weakness and recommendation to taper to discontinuation at discretion of her outpatient psychiatric provider over time, likely will require slow taper as she has been on benzos for last 30 years. (1) Weakness: (2) Major depressive disorder: (3) MAXIMILIANO (generalized anxiety disorder): Plan -Get [facility] records to review any recent medication changes -Consider switch from Xanax 1mg BID prn to Klonopin 2mg daily prn -Agree with discontinuation of clonidine -In outpatient setting would consider dose reduction of Rexulti as family noticing possible signs of EPS/Parkinsonism with flattening of affect/reduced emotional range -If weaknesses persists could also consider taper of Buspar in outpatient setting or reducing to 15mg BID Risk Factors Assessment Do You Have Access To A Gun?: No Psych History Identifying Data 76 yo woman with a history of depression, anxiety admitted medically for weakness. Psychiatry consulted for recommendations regrading possible medication adjustments/contributions to weakness. Chief Complaint "My anxiety is a lot better today". History of Present Illness Kim was admitted for worsening weakness over the past month with intensifying symptoms over the last week. She is on multiple psychiatric medications including Buspar, Zoloft, Wellbutrin, Xanax, Ambien, Clonidine, and Rexulti. She cannot recall why these were started or timeline of any recent medication adjustments. She agrees to allow us to contact [facility] for records. Her daughter Shraddha is present for part of the interview and notes concern about Xanax as her mother has been on this for >30 years but has struggled with attempts to reduce the dose. She also noted her mom has been more flat at home and seems to struggle to show emotions. Kim endorses intermittent anxiety but denies current depressive symptoms, de nies SI. Past Psychiatric History Outpatient Services: [facility], [facility] in 3 weeks Previous Psych Admissions: 2 years ago [facility] for depression Do You Have Access To A Gun?: No History of Previous Suicide Attempt: No Allergies Allergy/AdvReac Type Severity Reaction Status Date / Time fentanyl Allergy Intermediate extreme Verified 10/04/21 15:18 confusion/hallucination amoxicillin Allergy Mild Hives Verified 10/04/21 15:18 Penicillins Allergy Mild RASH TO Verified 10/04/21 15:18 AMOXIL, NO RESP PROBLEMS Home Medications Medication Instructions Recorded Confirmed Type alprazolam 1 mg tablet 1 mg PO AMHS 07/19/18 11/21/21 History montelukast 10 mg tablet 10 mg PO HS #90 tabs 02/17/19 11/21/21 Rx cholecalciferol (vitamin D3) 25 50 mcg PO QAM #90 tabs 09/02/20 11/21/21 Rx mcg (1,000 unit) tablet (Vitamin D3) carvedilol 12.5 mg tablet (Coreg) 12.5 mg PO AMHS 01/05/21 11/21/21 History sertraline 100 mg tablet 200 mg PO HS 02/16/21 11/21/21 History aspirin 81 mg tablet,delayed 81 mg PO DAILY #90 tabs 04/06/21 11/21/21 Rx release calcitriol 0.25 mcg capsule 0.25 mcg PO QAM #90 caps 04/06/21 11/21/21 Rx amlodipine 10 mg tablet 10 mg PO DAILY 04/10/21 11/21/21 History buspirone 15 mg tablet 15 mg PO TID 04/10/21 11/21/21 History clonidine HCl 0.1 mg tablet 0.1 mg PO AMHS 04/10/21 11/21/21 History zolpidem 10 mg tablet 10 mg PO HS 04/10/21 11/21/21 History albuterol sulfate 90 mcg/actuation 2 puff inhalation Q6H PRN Wheezing 09/14/21 11/21/21 History aerosol inhaler fluticasone propionate [Flovent 1 inh inhalation DAILY PRN Wheezing 09/14/21 11/21/21 History HFA] gabapentin 100 mg capsule 100 mg PO BID 09/14/21 11/21/21 History brexpiprazole 1 mg tablet (Rexulti) 3 mg PO HS 09/21/21 11/21/21 History furosemide 20 mg tablet 20 mg PO DAILY #90 tabs 10/04/21 11/21/21 Rx hydralazine 50 mg tablet 50 mg PO BID 10/04/21 11/21/21 History bupropion HCl 100 mg tablet,12 hr 100 mg PO DAILY 11/21/21 11/21/21 History sustained-release Family History family hx of anxiety Substance Abuse History denies Personal History Childhood: strong family support Beliefs That Will Affect Care: None History of Legal Problems: denies Patient History Medical History (Updated 11/22/21 @ 13:13 by Leti Mathur MD) Anxiety Depression MAXIMILIANO (generalized anxiety disorder) GERD (gastroesophageal reflux disease) HTN (hypertension) Hypercholesterolemia Irregular heart beats follows with Dr. 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) Stroke 11/2020 Wheezing intermittent---reason for inhalers Surgical History History of bilateral tubal ligation History of cholecystectomy History of colonoscopy History of dilatation and curettage History of esophagogastroduodenoscopy (EGD) History of right knee joint replacement History of tooth extraction History of total left knee replacement (TKR) Family History Mother , age 82 of complications of diabetes Heart disease Stroke Family history of diabetes mellitus Grandmother (Maternal) Family history of diabetes mellitus Father , age 80 of liver issues Liver disease Other No family history of adverse response to anesthesia Social History Smoking Status: Never smoker Second Hand Exposure: No; Hx Alcohol Use: No Hx Substance Use: No Preferred Language: Georgian Communication Ability: Effective Equipment Driver Required: No Beliefs That Will Affect Care: None marital status: Current Living Situation: Spouse current occupational status: retired 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 Feels Safe at Home: Yes Assistive Devices: Walker Physical Exam Psychiatric: Orientation: alert and oriented x 3 Apperance: appropriately dressed and appropriately groomed Eye Contact: good eye contact Motor Behavior: no abnormal motor movements Speech: normal rate/rhythm/volume of speech Affect: + constricted affect Mood: + anxious mood; no depressed mood Thought Process: linear/logical thought process Thought Content: reality based without delusions Suicidal Thoughts: denies suicidal thoughts Homicidal Thoughts: denies homicidal thoughts Hallucinations: no auditory hallucinations and no visual hallucinations Cognition: recent memory grossly intact, remote memory grossly intact, attention grossly intact and language grossly intact Estimated Intelligence: consistent with education level Insight: + limited insight Judgement: + fair judgement Vital Signs (Past 24 Hours): Last Vital Signs Temp 36.5 C 11/22/21 07:09 Pulse 70 11/22/21 07:09 Resp 15 11/22/21 07:09 BP 148/68 H 11/22/21 07:09 Pulse Ox 94 11/22/21 07:09 O2 Del Method 11/22/21 07:09 Review of Systems All systems reviewed & are unremarkable except as noted in HPI & below Results & Data (PSY) Medications Administered Acetaminophen (Acetaminophen 500 Mg Tab) 1,000 mg PO Q8H PRN PRN Reason: pain Stop: 12/22/21 01:59 Last Admin: 11/22/21 01:54 Dose: 1,000 mg Documented By: ASHKAN Alprazolam (Alprazolam 0.5 Mg Tablet) 1 mg PO BID PRN PRN Reason: anxiety Stop: 12/20/21 17:43 Last Admin: 11/22/21 08:26 Dose: 1 mg Documented By: Admin: 11/21/21 21:00 Dose: 1 mg Documented By: Admin: 11/21/21 10:47 Dose: 1 mg Documented By: IRVING Amlodipine Besylate (Amlodipine Besylate 5 Mg Tab) 10 mg PO DAILY [facility] Stop: 12/21/21 08:59 Last Admin: 11/22/21 08:25 Dose: 10 mg Documented By: Admin: 11/21/21 09:19 Dose: 10 mg Documented By: IRVING Aspirin (Aspirin 81 Mg Ectab) 81 mg PO DAILY [facility] Stop: 12/21/21 08:59 Last Admin: 11/22/21 08:25 Dose: 81 mg Documented By: Admin: 11/21/21 09:19 Dose: 81 mg Documented By: IRVING Bupropion HCl (Bupropion Hcl 100 Mg Tablet) 100 mg PO DAILY [facility] Stop: 12/21/21 08:59 Last Admin: 11/22/21 08:25 Dose: 100 mg Documented By: Admin: 11/21/21 09:19 Dose: 100 mg Documented By: IRVING Calcitriol (Calcitriol 0.25 Mcg Capsule) 0.25 mcg PO QAM [facility] Stop: 12/21/21 08:59 Last Admin: 11/22/21 08:25 Dose: 0.25 mcg Documented By: Admin: 11/21/21 09:19 Dose: 0.25 mcg Documented By: IRVING Carvedilol (Carvedilol 12.5 Mg Tab) 12.5 mg PO BID [facility] Stop: 12/20/21 20:59 Last Admin: 11/22/21 08:25 Dose: 12.5 mg Documented By: Admin: 11/21/21 21:01 Dose: 12.5 mg Documented By: Admin: 11/21/21 09:18 Dose: 12.5 mg Documented By: Admin: 11/20/21 21:22 Dose: 12.5 mg Documented By: KRYSTA Cyanocobalamin (Cyanocobalamin 1000 Mcg/Ml Vial) 1,000 mcg IM QAM [facility] Stop: 11/24/21 15:59 Last Admin: 11/22/21 08:25 Dose: 1,000 mcg Documented By: Admin: 11/21/21 18:12 Dose: 1,000 mcg Documented By: IRVING Fluticasone Furoate (Fluticasone Furoate 100mcg 14 Puffs/Inhaler) 1 puffs INH DAILY [facility] Stop: 12/21/21 08:59 Last Admin: 11/22/21 08:24 Dose: 1 puffs Documented By: Admin: 11/21/21 09:20 Dose: 1 puffs Documented By: IRVING Gabapentin (Gabapentin 100 Mg Cap) 100 mg PO BID [facility] Stop: 12/20/21 20:59 Last Admin: 11/22/21 08:25 Dose: 100 mg Documented By: Admin: 11/21/21 21:01 Dose: 100 mg Documented By: Admin: 11/21/21 09:18 Dose: 100 mg Documented By: Admin: 11/20/21 21:23 Dose: 100 mg Documented By: KRYSTA Heparin Sodium (Porcine) (Heparin Sod 5,000 Unit/0.5 Ml Vial) 5,000 units SQ Q8 [facility] Stop: 12/20/21 21:59 Last Admin: 11/22/21 05:27 Dose: 5,000 units Documented By: Admin: 11/21/21 21:02 Dose: 5,000 units Documented By: Admin: 11/21/21 13:56 Dose: 5,000 units Documented By: Admin: 11/21/21 05:47 Dose: 5,000 units Documented By: Admin: 11/20/21 21:23 Dose: 5,000 units Documented By: KRYSTA Hydralazine HCl (Hydralazine Tab 50 Mg Tab) 50 mg PO BID [facility] Stop: 12/20/21 20:59 Last Admin: 11/22/21 08:25 Dose: 50 mg Documented By: Admin: 11/21/21 21:00 Dose: 50 mg Documented By: Admin: 11/21/21 09:19 Dose: 50 mg Documented By: Admin: 11/20/21 21:21 Dose: 50 mg Documented By: KRYSTA Levothyroxine Sodium (Levothyroxine Sodium 25 Mcg Tablet) 25 mcg PO DAILYBB [facility] Stop: 12/22/21 06:29 Last Admin: 11/22/21 05:27 Dose: 25 mcg Documented By: ASHKAN Lidocaine (Lidocaine 5% 1 Patch) 1 patch TD QAM [facility] Stop: 12/22/21 08:59 Last Admin: 11/22/21 08:25 Dose: 1 patch Documented By: IRVING Montelukast Sodium (Montelukast Sodium 10 Mg Tablet) 10 mg PO HS [facility] Stop: 12/20/21 20:59 Last Admin: 11/21/21 21:01 Dose: 10 mg Documented By: Admin: 11/20/21 21:23 Dose: 10 mg Documented By: KRYSTA Ondansetron HCl (Ondansetron Inj 2 Mg/Ml 2 Ml Vial) 4 mg IV Q4H PRN PRN Reason: Nausea Stop: 12/21/21 10:33 Last Admin: 11/21/21 10:47 Dose: 4 mg Documented By: IRVING Coding Level of Care Code 70361 Inpt Consult Level 3 Diagnoses Weakness R53.1 Major depressive disorder F32.9 MAXIMILIANO (generalized anxiety disorder) F41.1
--- NOTE | 2021-11-22 13:46 | Hospitalist Progress Note ---
Date of Service November 22, 2021 Assessment & Plan (1) Generalized weakness: Plan: Without focal neurological deficit or ataxia. Continue OT and PT. Continue vitamin B12 replacement and thyroid replacement. Continue treatment of Klebsiella UTI. Psychiatry consultation and recommendations appreciated. (2) UTI (urinary tract infection): Plan: Klebsiella isolated. She is now on Rocephin. (3) Dizziness: Plan: We talked about as needed meclizine for her chronic intermittent vertigo. Clonidine has been discontinued as a possible contributor. 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 Residual left extremity mild weakness. May have worsening of weakenss from UTI. Continue current med management. 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 Improved. Monitor intake and output. Holding Lasix since admission (6) HTN (hypertension): Plan: Clonidine has been discontinued. Continue other medications. (7) Major depressive disorder: Plan: Currently on multiple medications. Appreciate psychiatry recommendations. (8) Anxiety: Plan: Stable. Medical management (9) Morbid obesity: Plan: Patient may benefit from bariatric medicine consultation to decrease overall CV mortality/morbidity as well as assisting with her mobility Plan VTE Prophylaxis - heparin 5000 units SQ Q8H Diet - T2DM Disposition -to be determined. Admission and Anticipated Discharge Date Admission Date: November 20, 2021 Subjective Alert. She states she is feeling better. Klebsiella was isolated in the urine and she is on Rocephin. We discussed as needed use of meclizine for her intermittent vertigo. Vitamin B12 and thyroid replacement are new. Review of Systems Review of Systems: Constitutional-no fever or chills ENT-no blurred vision, no double vision, no epistaxis, no sore throat Respiratory-no cough, no wheezing, no shortness of breath Cardiac-no palpitations, no chest pain, no syncope GI-no nausea, vomiting, diarrhea, melena, hematochezia -no urinary retention, no urinary incontinence, no dysuria, no hematuria Musculoskeletal-no joint pain, no muscle tenderness Skin-no bruising, no rashes, no pruritus Neuro-no isolated weakness, no paresthesia, no weakness. Intermittent vertigo is a chronic problem Psych-no depression, no anxiety Physical Exam 2 Physical Exam: General-alert and oriented x3, no fevers, no chills. Obese HEENT-head atraumatic and normocephalic, pupils equal and reactive to light, extraocular muscles intact Neck-no lymphadenopathy or thyromegaly, trachea midline Chest-clear to auscultation percussion. No rales wheezing or rhonchi Cardiac-regular rate and rhythm, normal S1 and S2, no murmurs Abdomen-normal bowel sounds, nontender, no hepatosplenomegaly Extremities-no cyanosis, clubbing, or edema Neuro-cranial nerves II through XII intact, motor and sensory function within normal limits, strength symmetrical , no focal deficits Psych-normal affect, normal mood Results & Data Results & Data ([facility]) Vital Signs (Past 12 Hours) Vital Signs Temp Pulse Resp BP Pulse Ox O2 Del Method 11/22/21 07:09 36.5 C 70 15 148/68 H 94 Room Air Laboratory Results 11/22/21 06:46 11/22/21 06:46 PG Care Time/CCT Total # of Minutes Spent Total Time Spent with Patient: Total time spent is greater than 50% in coordination of care (as documented) at patient's floor/unit and/or counseling patient: Coding Level of Care Code 94143 Subseq Hosp Care Lvl 3 Diagnoses Generalized weakness R53.1 UTI (urinary tract infection) N39.0 Dizziness R42 Stroke I63.9 CVA mechanism: unspecified Chronic kidney disease N18.9 HTN (hypertension) I10 Major depressive disorder F32.9 Anxiety F41.9 Morbid obesity E66.01 (1) Stroke CVA mechanism: unspecified Qualified Code(s): I63.9 - Cerebral infarction, unspecified
[2021-11-22] MEDS: cefTRIAXone SODIUM 1,000 MG in DEXTROSE 5% 50 ML IV SCH (15:55)
[2021-11-22] MEDS: MONTELUKAST SODIUM 10 MG TABLET PO SCH (21:37)
[2021-11-22] MEDS: SERTRALINE HCL 100 MG TABLET PO SCH (21:37)
[2021-11-22] MEDS: BREXPIPRAZOLE PO SCH (22:19)
[2021-11-23] MEDS: HEPARIN SOD 5,000 UNIT/0.5 ML VIAL SQ SCH ×3 (06:09→21:13)
[2021-11-23] MEDS: ALPRAZolam 0.5 MG TABLET PO PRN (06:09)
[2021-11-23] MEDS: LEVOTHYROXINE SODIUM 25 MCG TABLET PO SCH (06:09)
[2021-11-23] MEDS: LIDOCAINE 5% 1 PATCH TD SCH (07:53)
[2021-11-23] MEDS: carvediloL 12.5 MG TAB PO SCH ×2 (07:53→21:13)
[2021-11-23] MEDS: CALCITRIOL 0.25 MCG CAPSULE PO SCH (07:54)
[2021-11-23] MEDS: CYANOCOBALAMIN 1000 MCG/ML VIAL IM SCH (07:54)
[2021-11-23] MEDS: ASPIRIN 81 MG ECTAB PO SCH (07:54)
[2021-11-23] MEDS: GABAPENTIN 100 MG CAP PO SCH ×2 (07:54→21:08)
[2021-11-23] MEDS: buPROPion HCl 100 MG TABLET PO SCH (07:54)
[2021-11-23] MEDS: hydrALAZINE TAB 50 MG TAB PO SCH ×2 (07:54→21:13)
[2021-11-23] MEDS: amLODIPine BESYLATE 5 MG TAB PO SCH (07:54)
[2021-11-23] MEDS: FLUTICASONE FUROATE 100MCG 14 PUFFS/INHALER INH SCH (07:55)
[2021-11-23 08:20] LABS: Basophils # (auto) 0.06 K/uL (0-0.2); Basophils % (auto) 0.6 %; Eosinophils # (auto) 0.38 K/uL (0-0.50); Eosinophils % (auto) 4.1 %; Hematocrit (blood only) 36.7 % (34.1-44.9); Hemoglobin 12.1 g/dl (12.0-16.0); Immature Granulocytes # (auto) 0.06 K/uL (0.00-0.02); Immature Granulocytes % (auto) 0.6 %; Lymphocytes # (auto) 2.25 K/uL (1.2-3.4); Lymphocytes % (auto) 24.2 %; Mean Corpuscular Hemoglobin 31.6 pg (25.0-34.0); Mean Corpuscular Volume 95.8 fL (80.0-100.0); Mean Platelet Volume 9.5 fL (9.4-12.3); Monocytes # (auto) 0.89 K/uL (0.24-0.82); Monocytes % (auto) 9.6 %; Neutrophils # (auto) 5.66 K/uL (1.4-6.5); Neutrophils % (auto) 60.9 %; Platelet Count 194 K/uL (130-400); RDW Standard Deviation 49.6 fL (36.4-46.3); Red Blood Count 3.83 M/uL (3.93-5.22)
--- NOTE | 2021-11-23 08:53 | Hospitalist Progress Note ---
Date of Service November 23, 2021 Assessment & Plan (1) Generalized weakness: Plan: Without focal neurological deficit or ataxia. Continue OT and PT. Continue vitamin B12 replacement and thyroid replacement. Continue treatment of Klebsiella UTI. Psychiatry consultation recommendations appreciated for medication adjustment. (2) UTI (urinary tract infection): Plan: Klebsiella isolated. She is now on Rocephin, complete one week LD 11/27/21. (3) Dizziness: Plan: We talked about as needed meclizine for her chronic intermittent vertigo. 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 Residual left extremity mild weakness. May have worsening of weakenss from UTI. 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 Improved. Monitor intake and output. Holding Lasix since admission (6) HTN (hypertension): Plan: Clonidine has been discontinued. Continue other medications. (7) Major depressive disorder: Plan: Currently on multiple medications. Appreciate psychiatry recommendations. Sertraline, Bupropion, buspirone (8) Anxiety: Plan: Stable. transition away from xanax to long acting clonazepam (9) Morbid obesity: Plan: Patient may benefit from bariatric medicine consultation to decrease overall CV mortality/morbidity as well as assisting with her mobility Plan VTE Prophylaxis - heparin 5000 units SQ Q8H Diet - T2DM Disposition -to be determined. Admission and Anticipated Discharge Date Admission Date: November 20, 2021 Subjective PT feels improved wants some Ambien for sleep, discussed pros and cons, pt is already on multiple meds to help psychiatric issues, will use low dose tonight Review of Systems Review of Systems: Mild distress and moderate fatigue no headache, no visual changes no speech or swallowing issues no chest pain, pressure or palpitations no shortness of breath, cough or wheezes no abdominal pain, nausea or vomiting, diarrhea or constipation no dysuria, hematuria or frequency no focal joint pain or swelling no back pain, CVA tenderness or radicular pain no bruising, bleeding or rashes no focal signs of weakness or numbness or altered sensation, c/o feeling tremor and weak no complaints of anxiety or depression.. Physical Exam Physical Exam: The patient appeared chronically ill Vital signs as documented. Head exam is normocephalic atraumatic Neck is without JVD, thyromegaly, or carotid bruits. Lungs are clear to auscultation, no focal loss of breath sounds Cardiac exam, Rhythm is regular.. No murmurs, rubs or gallops. Abdominal exam reveals normal bowel sounds, soft non tender, no masses Extremities are nonedematous and both pedal pulses are present Neurologic exam is alert and oriented, no focal loss of strength or sensation no obvious signs of the tremors she was complaining of Skin is without bruises or rashes Psychologically is without concerns for anxiety or depression.. Results & Data Results & Data ([facility]) Vital Signs (Past 12 Hours) Vital Signs Temp Pulse Resp BP BP Pulse Ox O2 Del Method 11/23/21 07:03 98.2 F 77 18 151/77 H 96 Room Air 11/23/21 05:32 75 16 139/73 96 Room Air 11/22/21 21:34 98.2 F 86 16 169/76 H 95 Room Air PG Care Time/CCT Total # of Minutes Spent Total Time Spent with Patient: Total time spent is greater than 50% in coordination of care (as documented) at patient's floor/unit and/or counseling patient: Coding Level of Care Code 29510 Subseq Hosp Care Lvl 2 Diagnoses Generalized weakness R53.1 UTI (urinary tract infection) N39.0 Dizziness R42 Stroke I63.9 CVA mechanism: unspecified Chronic kidney disease N18.9 HTN (hypertension) I10 Major depressive disorder F32.9 Anxiety F41.9 Morbid obesity E66.01 (1) Stroke CVA mechanism: unspecified Qualified Code(s): I63.9 - Cerebral infarction, unspecified
[2021-11-23 08:55] LABS: Calcium 9.6 mg/dl (8.5-10.1); Creatinine Clr Calc Pharmacy 27.6 ml/min; Est GFR (African American) 27.8 ml/min; Magnesium 2.1 mg/dl (1.7-2.4); Potassium 3.9 mmol/L (3.5-5.1)
[2021-11-23] MEDS: cefTRIAXone SODIUM 1,000 MG in DEXTROSE 5% 50 ML IV SCH (14:32)
[2021-11-23] MEDS: MONTELUKAST SODIUM 10 MG TABLET PO SCH (21:07)
[2021-11-23] MEDS: ZOLPIDEM TARTRATE 5 MG TAB PO SCH (21:07)
[2021-11-23] MEDS: clonazePAM 1 MG TAB PO PRN (21:07)
[2021-11-23] MEDS: SERTRALINE HCL 100 MG TABLET PO SCH (21:07)
[2021-11-23] MEDS: BREXPIPRAZOLE PO SCH (21:08)
[2021-11-24] MEDS: HEPARIN SOD 5,000 UNIT/0.5 ML VIAL SQ SCH ×3 (06:35→21:02)
[2021-11-24] MEDS: LEVOTHYROXINE SODIUM 25 MCG TABLET PO SCH (06:35)
[2021-11-24] MEDS: CYANOCOBALAMIN 1000 MCG/ML VIAL IM SCH (08:31)
--- NOTE | 2021-11-24 08:31 | Hospitalist Progress Note ---
Date of Service November 24, 2021 Assessment & Plan (1) Generalized weakness: Plan: Metabolic encephalopathy, secondary to Urinary tract infection poa, Rocephin treatment of Klebsiella UTI Continue OT and PT. Continue vitamin B12 replacement and thyroid replacement. . Psychiatry consultation recommendations appreciated for medication adjustment. (2) UTI (urinary tract infection): Plan: Klebsiella isolated. She is now on Rocephin, complete one week LD 11/27/21. (3) Dizziness: Plan: We talked about as needed meclizine for her chronic intermittent vertigo. 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 Residual left extremity mild weakness. May have worsening of weakenss from UTI. 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 Improved. Monitor intake and output. Holding Lasix since admission (6) HTN (hypertension): Plan: Clonidine has been discontinued. Continue other medications. (7) Major depressive disorder: Plan: Currently on multiple medications. Appreciate psychiatry recommendations. Sertraline, Bupropion, buspirone (8) Anxiety: Plan: Stable. transition away from xanax to long acting clonazepam (9) Morbid obesity: Plan: Patient may benefit from bariatric medicine consultation to decrease overall CV mortality/morbidity as well as assisting with her mobility Plan VTE Prophylaxis - heparin 5000 units SQ Q8H Diet - T2DM Disposition -to be determined. Admission and Anticipated Discharge Date Admission Date: November 20, 2021 Subjective PT feels improved after getting Ambien for sleep,pt on multiple meds to help psychiatric issues, is agreeable to reduce zoloft, but continue ambien 5 mg hs Review of Systems Review of Systems: Mild distress and moderate fatigue no headache, no visual changes no speech or swallowing issues no chest pain, pressure or palpitations no shortness of breath, cough or wheezes no abdominal pain, nausea or vomiting, diarrhea or constipation no dysuria, hematuria or frequency no focal joint pain or swelling no back pain, CVA tenderness or radicular pain no bruising, bleeding or rashes no focal signs of weakness or numbness or altered sensation, c/o feeling tremor and weak no complaints of anxiety or depression.. Physical Exam Physical Exam: The patient appeared chronically ill Vital signs as documented. Head exam is normocephalic atraumatic Neck is without JVD, thyromegaly, or carotid bruits. Lungs are clear to auscultation, no focal loss of breath sounds Cardiac exam, Rhythm is regular.. No murmurs, rubs or gallops. Abdominal exam reveals normal bowel sounds, soft non tender, no masses Extremities are nonedematous and both pedal pulses are present Neurologic exam is alert and oriented, no focal loss of strength or sensation no obvious signs of the tremors she was complaining of Skin is without bruises or rashes Psychologically is without concerns for anxiety or depression.. Results & Data Results & Data ([facility]) Vital Signs (Past 12 Hours) Vital Signs Temp Pulse Resp BP BP Pulse Ox O2 Del Method 11/24/21 07:31 97.7 F 85 20 183/84 H 193/71 H 95 Room Air 11/23/21 22:22 97.7 F 80 18 148/72 H 94 Room Air 11/23/21 21:12 90 143/78 H PG Care Time/CCT Total # of Minutes Spent Total Time Spent with Patient: Total time spent is greater than 50% in coordination of care (as documented) at patient's floor/unit and/or counseling patient: Coding Level of Care Code 95291 Subseq Hosp Care Lvl 2 Diagnoses Generalized weakness R53.1 UTI (urinary tract infection) N39.0 Dizziness R42 Stroke I63.9 CVA mechanism: unspecified Chronic kidney disease N18.9 HTN (hypertension) I10 Major depressive disorder F32.9 Anxiety F41.9 Morbid obesity E66.01 (1) Stroke CVA mechanism: unspecified Qualified Code(s): I63.9 - Cerebral infarction, unspecified
[2021-11-24] MEDS: amLODIPine BESYLATE 5 MG TAB PO SCH (08:32)
[2021-11-24] MEDS: ASPIRIN 81 MG ECTAB PO SCH (08:32)
[2021-11-24] MEDS: GABAPENTIN 100 MG CAP PO SCH ×2 (08:32→21:01)
[2021-11-24] MEDS: carvediloL 12.5 MG TAB PO SCH ×2 (08:32→21:00)
[2021-11-24] MEDS: FLUTICASONE FUROATE 100MCG 14 PUFFS/INHALER INH SCH (08:32)
[2021-11-24] MEDS: CALCITRIOL 0.25 MCG CAPSULE PO SCH (08:32)
[2021-11-24] MEDS: LIDOCAINE 5% 1 PATCH TD SCH (08:32)
[2021-11-24] MEDS: hydrALAZINE TAB 50 MG TAB PO SCH ×2 (08:32→21:01)
[2021-11-24] MEDS: buPROPion HCl 100 MG TABLET PO SCH (08:32)
[2021-11-24] MEDS: cefTRIAXone SODIUM 1,000 MG in DEXTROSE 5% 50 ML IV SCH (14:49)
--- NOTE | 2021-11-24 15:04 | Hospitalist Progress Note ---
Date of Service November 24, 2021 Assessment & Plan Admission and Anticipated Discharge Date Admission Date: November 20, 2021 Results & Data Results & Data ([facility]) Vital Signs (Past 12 Hours) Vital Signs Temp Pulse Resp BP BP Pulse Ox O2 Del Method 11/24/21 08:15 Room Air 11/24/21 07:31 97.7 F 85 20 183/84 H 193/71 H 95 Room Air PG Care Time/CCT Total # of Minutes Spent Total Time Spent with Patient: Total time spent is greater than 50% in coordination of care (as documented) at patient's floor/unit and/or counseling patient: Coding
--- NOTE | 2021-11-24 16:43 | Communication Note ---
Date of Service: November 24, 2021 Reviewed records from [facility] regarding recent medication changes. -Abilify discontinued in June -Buspar increased in mid-August -Rexulti increased in mid-September to 3mg qhs -Wellbutrin added mid October Possible that Rexulti increase is contributing to weakness but she is also struggling to sleep and Rexulti can be sedating/helps with insomnia and is l ikely helping with her mood. If weakness persists despite other interventions could consider reducing Rexulti to 1.5mg hs (non-formulary so could do 0.5 tab of her current medication) to see if this helps.
[2021-11-24] MEDS: BREXPIPRAZOLE PO SCH (21:00)
[2021-11-24] MEDS: SERTRALINE HCL 100 MG TABLET PO SCH (21:01)
[2021-11-24] MEDS: MONTELUKAST SODIUM 10 MG TABLET PO SCH (21:01)
[2021-11-24] MEDS: ZOLPIDEM TARTRATE 5 MG TAB PO SCH ×2 (21:01)
[2021-11-25] MEDS: LEVOTHYROXINE SODIUM 25 MCG TABLET PO SCH (05:50)
[2021-11-25] MEDS: HEPARIN SOD 5,000 UNIT/0.5 ML VIAL SQ SCH ×3 (05:50→22:49)
[2021-11-25] MEDS: ASPIRIN 81 MG ECTAB PO SCH (08:23)
[2021-11-25] MEDS: amLODIPine BESYLATE 5 MG TAB PO SCH (08:23)
[2021-11-25] MEDS: carvediloL 12.5 MG TAB PO SCH ×2 (08:24→20:28)
[2021-11-25] MEDS: FLUTICASONE FUROATE 100MCG 14 PUFFS/INHALER INH SCH (08:24)
[2021-11-25] MEDS: buPROPion HCl 100 MG TABLET PO SCH (08:24)
[2021-11-25] MEDS: CALCITRIOL 0.25 MCG CAPSULE PO SCH (08:24)
[2021-11-25] MEDS: hydrALAZINE TAB 50 MG TAB PO SCH ×2 (08:25→20:28)
[2021-11-25] MEDS: GABAPENTIN 100 MG CAP PO SCH ×2 (08:25→20:27)
[2021-11-25] MEDS: LIDOCAINE 5% 1 PATCH TD SCH (08:26)
--- NOTE | 2021-11-25 08:56 | Hospitalist Progress Note ---
Date of Service November 25, 2021 Assessment & Plan (1) Generalized weakness: Plan: Metabolic encephalopathy, secondary to Urinary tract infection poa, Rocephin treatment of Klebsiella UTI Continue OT and PT. Continue vitamin B12 replacement and thyroid replacement. . Psychiatry consultation recommendations appreciated for medication adjustment. Reviewed records from [place] regarding recent medication changes. -Abilify discontinued in June -Buspar increased in mid-August currently on hold -Rexulti increased in mid-September to 3mg qhs -Wellbutrin added mid October discontinued 11/25/2021 Possible that Rexulti increase is contributing to weakness but she is also st ruggling to sleep and Rexulti can be sedating/helps with insomnia and is likely helping with her mood. If weakness persists despite other interventions could consider reducing Rexulti to 1.5mg hs (non-formulary so could do 0.5 tab of her current medication) communicate this request to pharmacy on 11/25/2021 (2) UTI (urinary tract infection): Plan: Klebsiella isolated. She is now on Rocephin, complete one week LD 11/27/21. (3) Dizziness: Plan: We talked about as needed meclizine for her chronic intermittent vertigo. 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 Residual left extremity mild weakness. May have worsening of weakenss from UTI. 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 Improved. Monitor intake and output. Holding Lasix since admission (6) HTN (hypertension): Plan: Clonidine has been discontinued. Continue other medications. (7) Major depressive disorder: Plan: Currently on multiple medications. Appreciate psychiatry recommendations. Sertraline dose reduced, currently on hold as Bupropion, buspirone (8) Anxiety: Plan: Stable. transition away from xanax to long acting clonazepam (9) Morbid obesity: Plan: Patient may benefit from bariatric medicine consultation to decrease overall CV mortality/morbidity as well as assisting with her mobility Plan VTE Prophylaxis - heparin 5000 units SQ Q8H Diet - T2DM Disposition -to be determined. Admission and Anticipated Discharge Date Admission Date: November 20, 2021 Subjective Pt continues to look and feel improved, appreciate Dr Kurt gonzalez of summer med changes for mood, pt is continuing to agree to taper and reduce meds Review of Systems Review of Systems: Mild distress and moderate fatigue no headache, no visual changes no speech or swallowing issues no chest pain, pressure or palpitations no shortness of breath, cough or wheezes no abdominal pain, nausea or vomiting, diarrhea or constipation no dysuria, hematuria or frequency no focal joint pain or swelling no back pain, CVA tenderness or radicular pain no bruising, bleeding or rashes no focal signs of weakness or numbness or altered sensation, c/o feeling tremor and weak no complaints of anxiety or depression.. Physical Exam Physical Exam: The patient appeared to be improving Vital signs as documented. Head exam is normocephalic atraumatic Neck is without JVD, thyromegaly, or carotid bruits. Lungs are clear to auscultation, no focal loss of breath sounds Cardiac exam, Rhythm is regular.. No murmurs, rubs or gallops. Abdominal exam reveals normal bowel sounds, soft non tender, no masses Extremities are nonedematous and both pedal pulses are present Neurologic exam is alert and oriented, no focal loss of strength or sensation no obvious signs of the tremors she was complaining of Skin is without bruises or rashes Psychologically is without concerns for anxiety or depression.. Results & Data Results & Data ([facility]) Vital Signs (Past 12 Hours) Vital Signs Temp Pulse Resp BP Pulse Ox O2 Del Method 11/25/21 07:41 99.0 F 82 20 154/74 H 96 Room Air 11/24/21 20:56 98.8 F 87 16 157/68 H 92 PG Care Time/CCT Total # of Minutes Spent Total Time Spent with Patient: Total time spent is greater than 50% in coordination of care (as documented) at patient's floor/unit and/or counseling patient: Coding Level of Care Code 98730 Subseq Hosp Care Lvl 2 Diagnoses Generalized weakness R53.1 UTI (urinary tract infection) N39.0 Dizziness R42 Stroke I63.9 CVA mechanism: unspecified Chronic kidney disease N18.9 HTN (hypertension) I10 Major depressive disorder F32.9 Anxiety F41.9 Morbid obesity E66.01 (1) Stroke CVA mechanism: unspecified Qualified Code(s): I63.9 - Cerebral infarction, unspecified
[2021-11-25] MEDS: cefTRIAXone SODIUM 1,000 MG in DEXTROSE 5% 50 ML IV SCH (15:13)
[2021-11-25] MEDS ORDERED: Nursing to Pharmacy Communication SCH (18:45)
[2021-11-25] MEDS: MONTELUKAST SODIUM 10 MG TABLET PO SCH (20:27)
[2021-11-25] MEDS: ZOLPIDEM TARTRATE 5 MG TAB PO SCH (20:27)
[2021-11-25] MEDS: SERTRALINE HCL 100 MG TABLET PO SCH (20:28)
[2021-11-26] MEDS: clonazePAM 1 MG TAB PO PRN ×2 (03:18→09:46)
[2021-11-26] MEDS ORDERED: MICONAZOLE NITRATE POWDER 43 GM EXT PRN (05:07)
[2021-11-26] MEDS: BREXPIPRAZOLE PO SCH (05:13)
[2021-11-26] MEDS: LEVOTHYROXINE SODIUM 25 MCG TABLET PO SCH (06:25)
[2021-11-26] MEDS: HEPARIN SOD 5,000 UNIT/0.5 ML VIAL SQ SCH ×3 (06:25→21:54)
[2021-11-26] MEDS: carvediloL 12.5 MG TAB PO SCH ×2 (07:43→20:04)
[2021-11-26] MEDS: hydrALAZINE TAB 50 MG TAB PO SCH ×2 (07:43→20:04)
[2021-11-26] MEDS: GABAPENTIN 100 MG CAP PO SCH ×2 (07:44→20:03)
[2021-11-26] MEDS: amLODIPine BESYLATE 5 MG TAB PO SCH (07:45)
[2021-11-26] MEDS: CALCITRIOL 0.25 MCG CAPSULE PO SCH (07:45)
[2021-11-26] MEDS: ASPIRIN 81 MG ECTAB PO SCH (07:45)
[2021-11-26] MEDS: LIDOCAINE 5% 1 PATCH TD SCH (07:48)
[2021-11-26] MEDS: FLUTICASONE FUROATE 100MCG 14 PUFFS/INHALER INH SCH (07:48)
[2021-11-26] MEDS ORDERED: clonazePAM 1 MG TAB PO PRN (11:14)
[2021-11-26] MEDS ORDERED: hydrOXYzine HCl 25 MG TAB PO PRN (11:15)
[2021-11-26] MEDS: cefTRIAXone SODIUM 1,000 MG in DEXTROSE 5% 50 ML IV SCH (15:08)
--- NOTE | 2021-11-26 18:48 | Hospitalist Progress Note ---
Date of Service November 26, 2021 Assessment & Plan (1) Generalized weakness: Plan: Metabolic encephalopathy, secondary to Urinary tract infection poa, Rocephin treatment of Klebsiella UTI Continue OT and PT. Continue vitamin B12 replacement and thyroid replacement. . Psychiatry consultation recommendations appreciated for medication adjustment. Reviewed records from [place] regarding recent medication changes. -Abilify discontinued in June -Buspar increased in mid-August currently on hold -Rexulti increased in mid-September to 3mg qhs -Wellbutrin added mid October discontinued 11/25/2021 Possible that Rexulti increase is contributing to weakness but she is also st ruggling to sleep and Rexulti can be sedating/helps with insomnia and is likely helping with her mood. If weakness persists despite other interventions could consider reducing Rexulti to 0.5mg hs (non-formulary so could do 0.5 tab of her current medication) communicate this request to pharmacy on 11/25/2021 (2) UTI (urinary tract infection): Plan: Klebsiella isolated. She is now on Rocephin, complete one week LD 11/27/21. (3) Dizziness: Plan: We talked about as needed meclizine for her chronic intermittent vertigo. 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 Residual left extremity mild weakness. May have worsening of weakenss from UTI. 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 Improved. Monitor intake and output. Holding Lasix since admission (6) HTN (hypertension): Plan: Clonidine has been discontinued. Continue other medications. (7) Major depressive disorder: Plan: Currently on multiple medications. Appreciate psychiatry recommendations. Sertraline dose reduced, Brexpiprazole currently on hold Bupropion, ,buspirone (8) Anxiety: Plan: Stable. transition away from xanax to long acting clonazepam (9) Morbid obesity: Plan: Patient may benefit from bariatric medicine consultation to decrease overall CV mortality/morbidity as well as assisting with her mobility Plan VTE Prophylaxis - heparin 5000 units SQ Q8H Diet - T2DM Disposition -considering rehab Admission and Anticipated Discharge Date Admission Date: November 20, [address] Kurt gonzalez of summer med changes for mood, pt is continuing to agree to taper and reduce meds Pt did have resurgence of her anxiety overnight, improved with prn clonazepam, offered to restart BuSpar but she did not think this medication made a great affect. will attempt to use some vistaril and see if this is one day or more of a trend Review of Systems Review of Systems: Mild distress and moderate fatigue no headache, no visual changes no speech or swallowing issues no chest pain, pressure or palpitations no shortness of breath, cough or wheezes no abdominal pain, nausea or vomiting, diarrhea or constipation no dysuria, hematuria or frequency no focal joint pain or swelling no back pain, CVA tenderness or radicular pain no bruising, bleeding or rashes no focal signs of weakness or numbness or altered sensation, c/o feeling tremor and weak no complaints of anxiety or depression.. Physical Exam Physical Exam: The patient appeared to be improving Vital signs as documented. Head exam is normocephalic atraumatic Neck is without JVD, thyromegaly, or carotid bruits. Lungs are clear to auscultation, no focal loss of breath sounds Cardiac exam, Rhythm is regular.. No murmurs, rubs or gallops. Abdominal exam reveals normal bowel sounds, soft non tender, no masses Extremities are nonedematous and both pedal pulses are present Neurologic exam is alert and oriented, no focal loss of strength or sensation no obvious signs of the tremors she was complaining of Skin is without bruises or rashes Psychologically is without concerns for anxiety or depression.. Results & Data Results & Data ([facility]) Vital Signs (Past 12 Hours) Vital Signs Temp Pulse Resp BP BP Pulse Ox O2 Del Method 11/26/21 15:43 98.4 F 82 18 139/78 93 Room Air 11/26/21 07:45 Room Air 11/26/21 07:32 98.4 F 83 18 162/77 H 95 Room Air PG Care Time/CCT Total # of Minutes Spent Total Time Spent with Patient: Total time spent is greater than 50% in coordination of care (as documented) at patient's floor/unit and/or counseling patient: Coding Level of Care Code 57516 Subseq Hosp Care Lvl 2 Diagnoses Generalized weakness R53.1 UTI (urinary tract infection) N39.0 Dizziness R42 Stroke I63.9 CVA mechanism: unspecified Chronic kidney disease N18.9 HTN (hypertension) I10 Major depressive disorder F32.9 Anxiety F41.9 Morbid obesity E66.01 (1) Stroke CVA mechanism: unspecified Qualified Code(s): I63.9 - Cerebral infarction, unspecified
[2021-11-26] MEDS: MONTELUKAST SODIUM 10 MG TABLET PO SCH (20:03)
[2021-11-26] MEDS: SERTRALINE HCL 100 MG TABLET PO SCH (20:04)
[2021-11-26] MEDS: ZOLPIDEM TARTRATE 5 MG TAB PO SCH (21:54)
[2021-11-27] MEDS: LEVOTHYROXINE SODIUM 25 MCG TABLET PO SCH (05:37)
[2021-11-27] MEDS: HEPARIN SOD 5,000 UNIT/0.5 ML VIAL SQ SCH ×3 (05:37→20:28)
[2021-11-27] MEDS: GABAPENTIN 100 MG CAP PO SCH ×2 (08:49→20:26)
[2021-11-27] MEDS: FLUTICASONE FUROATE 100MCG 14 PUFFS/INHALER INH SCH ×2 (08:50→08:54)
[2021-11-27] MEDS: CALCITRIOL 0.25 MCG CAPSULE PO SCH (08:50)
[2021-11-27] MEDS: amLODIPine BESYLATE 5 MG TAB PO SCH (08:50)
[2021-11-27] MEDS: hydrALAZINE TAB 50 MG TAB PO SCH ×2 (08:50→20:26)
[2021-11-27] MEDS: carvediloL 12.5 MG TAB PO SCH ×2 (08:50→20:26)
[2021-11-27] MEDS: ASPIRIN 81 MG ECTAB PO SCH (08:50)
[2021-11-27] MEDS: LIDOCAINE 5% 1 PATCH TD SCH (08:50)
--- NOTE | 2021-11-27 17:36 | Hospitalist Progress Note ---
Date of Service November 27, 2021 Assessment & Plan (1) Generalized weakness: Plan: Metabolic encephalopathy, secondary to Urinary tract infection poa, Rocephin treatment of Klebsiella UTI Continue OT and PT. Continue vitamin B12 replacement and thyroid replacement. . Psychiatry consultation recommendations appreciated for medication adjustment. Reviewed records from [place] regarding recent medication changes. -Abilify discontinued in June -Buspar increased in mid-August currently on hold -Rexulti increased in mid-September to 3mg qhs -Wellbutrin added mid October discontinued 11/25/2021 Possible that Rexulti increase is contributing to weakness but she is also st ruggling to sleep and Rexulti can be sedating/helps with insomnia and is likely helping with her mood. If weakness persists despite other interventions could consider reducing Rexulti to 0.5mg hs (non-formulary so could do 0.5 tab of her current medication) communicate this request to pharmacy on 11/25/2021 (2) UTI (urinary tract infection): Plan: Klebsiella isolated. She is now on Rocephin, completed one week LD 11/27/21. (3) Dizziness: Plan: We talked about as needed meclizine for her chronic intermittent vertigo. 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 Residual left extremity mild weakness. May have worsening of weakenss from UTI. 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 Improved. Monitor intake and output. Holding Lasix since admission (6) HTN (hypertension): Plan: Clonidine has been discontinued. Continue other medications. (7) Major depressive disorder: Plan: Currently on multiple medications. Appreciate psychiatry recommendations. Sertraline dose reduced, Brexpiprazole currently on hold Bupropion, ,buspirone (8) Anxiety: Plan: Stable. transition away from xanax to long acting clonazepam (9) Morbid obesity: Plan: Patient may benefit from bariatric medicine consultation to decrease overall CV mortality/morbidity as well as assisting with her mobility Plan VTE Prophylaxis - heparin 5000 units SQ Q8H Diet - T2DM Disposition -considering rehab Admission and Anticipated Discharge Date Admission Date: November 20, [address] Kurt gonzalez of summer med changes for mood, pt is continuing to agree to taper and reduce meds Pt did have resurgence of her anxiety 11/26, improved with prn clonazepam, offered to restart BuSpar but she did not think this medication made a great affect. now ovenight to 11/27 did not have an issues, still looking forward to rehab, family at bedside and updated Review of Systems Review of Systems: Mild distress and moderate fatigue no headache, no visual changes no speech or swallowing issues no chest pain, pressure or palpitations no shortness of breath, cough or wheezes no abdominal pain, nausea or vomiting, diarrhea or constipation no dysuria, hematuria or frequency no focal joint pain or swelling no back pain, CVA tenderness or radicular pain no bruising, bleeding or rashes no focal signs of weakness or numbness or altered sensation, c/o feeling tremor and weak no complaints of anxiety or depression.. Physical Exam Physical Exam: The patient appeared to be improving Vital signs as documented. Head exam is normocephalic atraumatic Neck is without JVD, thyromegaly, or carotid bruits. Lungs are clear to auscultation, no focal loss of breath sounds Cardiac exam, Rhythm is regular.. No murmurs, rubs or gallops. Abdominal exam reveals normal bowel sounds, soft non tender, no masses Extremities are nonedematous and both pedal pulses are present Neurologic exam is alert and oriented, no focal loss of strength or sensation no obvious signs of the tremors she was complaining of Skin is without bruises or rashes Psychologically is without concerns for anxiety or depression.. Results & Data Results & Data ([facility]) Vital Signs (Past 12 Hours) Vital Signs Temp Pulse Resp BP Pulse Ox O2 Del Method 11/27/21 15:37 98.1 F 74 16 139/74 94 Room Air 11/27/21 08:51 98.1 F 81 16 156/82 H 97 Room Air PG Care Time/CCT Total # of Minutes Spent Total Time Spent with Patient: Total time spent is greater than 50% in coordination of care (as documented) at patient's floor/unit and/or counseling patient: Coding Level of Care Code 05777 Subseq Hosp Care Lvl 2 Diagnoses Generalized weakness R53.1 UTI (urinary tract infection) N39.0 Dizziness R42 Stroke I63.9 CVA mechanism: unspecified Chronic kidney disease N18.9 HTN (hypertension) I10 Major depressive disorder F32.9 Anxiety F41.9 Morbid obesity E66.01 (1) Stroke CVA mechanism: unspecified Qualified Code(s): I63.9 - Cerebral infarction, unspecified
[2021-11-27] MEDS: MONTELUKAST SODIUM 10 MG TABLET PO SCH (20:26)
[2021-11-27] MEDS: SERTRALINE HCL 100 MG TABLET PO SCH (20:26)
[2021-11-27] MEDS: ZOLPIDEM TARTRATE 5 MG TAB PO SCH (20:28)
[2021-11-28] MEDS: HEPARIN SOD 5,000 UNIT/0.5 ML VIAL SQ SCH ×3 (05:37→20:52)
[2021-11-28] MEDS: LEVOTHYROXINE SODIUM 25 MCG TABLET PO SCH (05:38)
[2021-11-28] MEDS: LIDOCAINE 5% 1 PATCH TD SCH (08:35)
[2021-11-28] MEDS: ASPIRIN 81 MG ECTAB PO SCH (08:35)
[2021-11-28] MEDS: CALCITRIOL 0.25 MCG CAPSULE PO SCH (08:36)
[2021-11-28] MEDS: GABAPENTIN 100 MG CAP PO SCH ×2 (08:36→20:51)
[2021-11-28] MEDS: hydrALAZINE TAB 50 MG TAB PO SCH ×2 (08:40→20:52)
[2021-11-28] MEDS: amLODIPine BESYLATE 5 MG TAB PO SCH (08:41)
[2021-11-28] MEDS: carvediloL 12.5 MG TAB PO SCH ×2 (08:42→20:51)
[2021-11-28] MEDS: FLUTICASONE FUROATE 100MCG 14 PUFFS/INHALER INH SCH (08:43)
--- NOTE | 2021-11-28 17:47 | Hospitalist Progress Note ---
Date of Service November 28, 2021 Assessment & Plan (1) Generalized weakness: Plan: Metabolic encephalopathy, secondary to Urinary tract infection poa, Rocephin treatment of Klebsiella UTI Continue OT and PT. Continue vitamin B12 replacement and thyroid replacement. . Psychiatry consultation recommendations appreciated for medication adjustment. Reviewed records from [place] regarding recent medication changes. -Abilify discontinued in June -Buspar increased in mid-August currently on hold -Rexulti increased in mid-September to 3mg qhs -Wellbutrin added mid October discontinued 11/25/2021 Possible that Rexulti increase is contributing to weakness but she is also st ruggling to sleep and Rexulti can be sedating/helps with insomnia and is likely helping with her mood. If weakness persists despite other interventions could consider reducing Rexulti to 0.5mg hs (non-formulary so could do 0.5 tab of her current medication) communicate this request to pharmacy on 11/25/2021 no new med changes since 11/27/21 awaiting placement (2) UTI (urinary tract infection): Plan: Klebsiella isolated. She is now on Rocephin, completed one week LD 11/27/21. (3) Dizziness: Plan: We talked about as needed meclizine for her chronic intermittent vertigo. 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 Residual left extremity mild weakness. May have worsening of weakenss from UTI. 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 Improved. Monitor intake and output. Holding Lasix since admission (6) HTN (hypertension): Plan: Clonidine has been discontinued. Continue other medications. (7) Major depressive disorder: Plan: Currently on multiple medications. Appreciate psychiatry recommendations. Sertraline dose reduced, Brexpiprazole currently on hold Bupropion, ,buspirone (8) Anxiety: Plan: Stable. transition away from xanax to long acting clonazepam (9) Morbid obesity: Plan: Patient may benefit from bariatric medicine consultation to decrease overall CV mortality/morbidity as well as assisting with her mobility Plan VTE Prophylaxis - heparin 5000 units SQ Q8H Diet - T2DM Disposition -considering rehab Admission and Anticipated Discharge Date Admission Date: November 20, [address] Kurt gonzalez of summer med changes for mood, pt is continuing to agree to taper and reduce meds Pt did have resurgence of her anxiety 11/26, improved with prn clonazepam, offered to restart BuSpar but she did not think this medication made a great affect. no new changes since 11/27/21 looking for placement for subacute rehab Review of Systems Review of Systems: Mild distress and moderate fatigue no headache, no visual changes no speech or swallowing issues no chest pain, pressure or palpitations no shortness of breath, cough or wheezes no abdominal pain, nausea or vomiting, diarrhea or constipation no dysuria, hematuria or frequency no focal joint pain or swelling no back pain, CVA tenderness or radicular pain no bruising, bleeding or rashes no focal signs of weakness or numbness or altered sensation, c/o feeling tremor and weak no complaints of anxiety or depression.. Physical Exam Physical Exam: The patient appeared to be improving Vital signs as documented. Head exam is normocephalic atraumatic Neck is without JVD, thyromegaly, or carotid bruits. Lungs are clear to auscultation, no focal loss of breath sounds Cardiac exam, Rhythm is regular.. No murmurs, rubs or gallops. Abdominal exam reveals normal bowel sounds, soft non tender, no masses Extremities are nonedematous and both pedal pulses are present Neurologic exam is alert and oriented, no focal loss of strength or sensation no obvious signs of the tremors she was complaining of Skin is without bruises or rashes Psychologically is without concerns for anxiety or depression.. Results & Data Results & Data ([facility]) Vital Signs (Past 12 Hours) Vital Signs Temp Pulse Resp BP Pulse Ox O2 Del Method 11/28/21 15:21 98.1 F 76 16 161/80 H 96 Room Air 11/28/21 08:09 98.2 F 80 16 141/78 H 96 Room Air 11/28/21 07:45 Room Air PG Care Time/CCT Total # of Minutes Spent Total Time Spent with Patient: Total time spent is greater than 50% in coordination of care (as documented) at patient's floor/unit and/or counseling patient: Coding Level of Care Code 35561 Subseq Hosp Care Lvl 1 Diagnoses Generalized weakness R53.1 UTI (urinary tract infection) N39.0 Dizziness R42 Stroke I63.9 CVA mechanism: unspecified Chronic kidney disease N18.9 HTN (hypertension) I10 Major depressive disorder F32.9 Anxiety F41.9 Morbid obesity E66.01 (1) Stroke CVA mechanism: unspecified Qualified Code(s): I63.9 - Cerebral infarction, unspecified
[2021-11-28] MEDS: MONTELUKAST SODIUM 10 MG TABLET PO SCH (20:52)
[2021-11-28] MEDS: ZOLPIDEM TARTRATE 5 MG TAB PO SCH (20:52)
[2021-11-28] MEDS: SERTRALINE HCL 100 MG TABLET PO SCH (20:52)
[2021-11-29] MEDS: LEVOTHYROXINE SODIUM 25 MCG TABLET PO SCH (05:47)
[2021-11-29] MEDS: HEPARIN SOD 5,000 UNIT/0.5 ML VIAL SQ SCH ×3 (05:47→22:04)
[2021-11-29] MEDS: carvediloL 12.5 MG TAB PO SCH ×2 (09:20→22:10)
[2021-11-29] MEDS: ASPIRIN 81 MG ECTAB PO SCH (09:20)
[2021-11-29] MEDS: hydrALAZINE TAB 50 MG TAB PO SCH ×2 (09:20→22:10)
[2021-11-29] MEDS: FLUTICASONE FUROATE 100MCG 14 PUFFS/INHALER INH SCH (09:21)
[2021-11-29] MEDS: CALCITRIOL 0.25 MCG CAPSULE PO SCH (09:21)
[2021-11-29] MEDS: amLODIPine BESYLATE 5 MG TAB PO SCH (09:21)
[2021-11-29] MEDS: GABAPENTIN 100 MG CAP PO SCH ×2 (09:21→22:05)
[2021-11-29] MEDS: LIDOCAINE 5% 1 PATCH TD SCH (09:22)
[2021-11-29 10:17] LABS: BUN Creatinine Ratio 14.5 (10-20); Calcium 9.7 mg/dl (8.5-10.1); Creatinine Clr Calc Pharmacy 29.6 ml/min; Est GFR (African American) 30.4 ml/min; Est GFR (Non-African American) 26.2 ml/min; Potassium 4.2 mmol/L (3.5-5.1)
--- NOTE | 2021-11-29 13:28 | Communication Note ---
Date of Service: November 29, 2021 Interim progress reviewed. Initial consult by Dr. Mathur on 11/22/21. Patient's family shared with liaison see positive difference, still some anxiety but last use prn Klonopin appears to be 11/26. Some N is being noted since med changes but unclear if psych med related to UTI/abx, etc. Continues on Buspar, Wellbutrin, Zoloft 100 mg, low dose Rexulti, etc. Progress is quite positive given hospitalization and decades use of Xanax. No additional recs at this time other than can likely d/c off of benzos, has an appointment with [place] but family is planning to contact [place] on own for another opinion. They are interested in seeing Dr. Leiva but I am not aware that he is taking patients.
--- NOTE | 2021-11-29 15:02 | Hospitalist Progress Note ---
Date of Service November 29, 2021 Assessment & Plan (1) Generalized weakness: Plan: Metabolic encephalopathy, secondary to Klebsiella UTI (POA) s/p course of Rocephin - Continue PT/OT. Continue vitamin B12 replacement and thyroid replacement. Psychiatry consultation recommendations appreciated for medication adjustment. Reviewed records from [place] regarding recent medication changes. -Abilify discontinued in June -Buspar increased in mid-August currently on hold -Rexulti increased in mid-September to 3mg qhs -Wellbutrin added mid October discontinued 11/25/2021 no new med changes since 11/27/21 awaiting snf placement for rehab-CM working on this (2) UTI (urinary tract infection): Plan: Klebsiella isolated. Treated w/ Rocephin x 1 week LD 11/27/21. (3) Dizziness: Plan: We talked about as needed meclizine for her chronic intermittent vertigo. 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 Residual left extremity mild weakness. May have worsening of weakenss from UTI. (5) Chronic kidney disease: Plan: SONIDO II on CKD IIIb-Improved - Continue to Monitor intake and output. - Holding Lasix since admission - [employer] improved on today's labs (6) HTN (hypertension): Plan: Clonidine has been discontinued. Continue other medications. (7) Major depressive disorder: Plan: Currently on multiple medications. Appreciate psychiatry recommendations. - Continue Buspar, Wellbutrin, Zoloft, and low dose Rexulti - D/c Klonopin (8) Anxiety: Plan: Stable. transition away from benzos, d/c Klonopin (9) Morbid obesity: Plan: Patient may benefit from bariatric medicine consultation to decrease overall CV mortality/morbidity as well as assisting with her mobility Plan VTE Prophylaxis - heparin 5000 units SQ Q8H Diet - T2DM Disposition-snf w/ rehab. CM on board, still attempting to contact facilities but has not received any returned phone calls regarding bed availability. Continue inpt stay until safe d/c plan in place. Plan d/w Dr. Hager. Admission and Anticipated Discharge Date Admission Date: November 20, 2021 Subjective Patient seen on daily round today. She is resting comfortably in bed and offers no complaints/concerns. She has been medically stable for days awaiting discharge to a rehab facility. Review of Systems Review of Systems: All systems reviewed and are unremarkable except as noted in HPI and below. Denies fever, chills, fatigue, headache, nasal congestion, sore throat, cough, chest pain, shortness of breath, palpitations, orthopnea, PND, abdominal pain, n/v/d, constipation, dysuria, hematuria, frequency, back pain, joint pain or swelling, easy bruising or bleeding, skin lesions or rashes. Physical Exam Physical Exam: GENERAL: 76 yo Well-developed, well-nourished WM. NAD. LUNGS: Clear to auscultation bilaterally. No W/R/R. CARDIOVASCULAR: Regular rate and rhythm. ABDOMEN: Soft, non-tender and non-distended. BS normoactive x 4 quad. EXTREMITIES: No edema. Non-tender. Peripheral pulses +2/4. NEUROLOGIC: A&O x3. PSYCHIATRIC: Cooperative. Appropriate mood and affect. SKIN: Warm, dry, intact. No rashes or lesions. Results & Data Results & Data ([facility]) Vital Signs (Past 12 Hours) Vital Signs Temp Pulse Resp BP Pulse Ox O2 Del Method 11/29/21 07:45 Room Air 11/29/21 07:38 36.8 C 81 16 158/73 H 93 Room Air Laboratory Results 11/23/21 08:02 11/29/21 09:09 PG Care Time/CCT Total # of Minutes Spent Total Time Spent with Patient: Total time spent is greater than 50% in coordination of care (as documented) at patient's floor/unit and/or counseling patient: Coding Level of Care Code 62951 Subseq Hosp Care Lvl 2 Diagnoses Generalized weakness R53.1 UTI (urinary tract infection) N39.0 Dizziness R42 Stroke I63.9 CVA mechanism: unspecified Chronic kidney disease N18.9 HTN (hypertension) I10 Major depressive disorder F32.9 Anxiety F41.9 Morbid obesity E66.01 (1) Stroke CVA mechanism: unspecified Qualified Code(s): I63.9 - Cerebral infarction, unspecified
[2021-11-29] MEDS: ZOLPIDEM TARTRATE 5 MG TAB PO SCH (22:04)
[2021-11-29] MEDS: SERTRALINE HCL 100 MG TABLET PO SCH (22:04)
[2021-11-29] MEDS: MONTELUKAST SODIUM 10 MG TABLET PO SCH (22:05)
[2021-11-30] MEDS: LEVOTHYROXINE SODIUM 25 MCG TABLET PO SCH (06:26)
[2021-11-30] MEDS: HEPARIN SOD 5,000 UNIT/0.5 ML VIAL SQ SCH ×3 (06:27→20:34)
[2021-11-30] MEDS: amLODIPine BESYLATE 5 MG TAB PO SCH (09:03)
[2021-11-30] MEDS: CALCITRIOL 0.25 MCG CAPSULE PO SCH (09:03)
[2021-11-30] MEDS: hydrALAZINE TAB 50 MG TAB PO SCH ×2 (09:03→20:35)
[2021-11-30] MEDS: GABAPENTIN 100 MG CAP PO SCH ×2 (09:04→20:35)
[2021-11-30] MEDS: LIDOCAINE 5% 1 PATCH TD SCH (09:04)
[2021-11-30] MEDS: carvediloL 12.5 MG TAB PO SCH ×2 (09:04→20:34)
[2021-11-30] MEDS: ASPIRIN 81 MG ECTAB PO SCH (09:04)
[2021-11-30] MEDS: FLUTICASONE FUROATE 100MCG 14 PUFFS/INHALER INH SCH (09:05)
--- NOTE | 2021-11-30 15:16 | Hospitalist Progress Note ---
Date of Service November 30, 2021 Assessment & Plan (1) Generalized weakness: Plan: Metabolic encephalopathy, secondary to Klebsiella UTI (POA) s/p course of Rocephin - Continue PT/OT. Continue vitamin B12 replacement and thyroid replacement. Psychiatry consultation recommendations appreciated for medication adjustment. Reviewed records from [place] regarding recent medication changes. -Abilify discontinued in June -Buspar increased in mid-August currently on hold -Rexulti increased in mid-September to 3mg qhs -Wellbutrin added mid October discontinued 11/25/2021 no new med changes since 11/27/21 awaiting snf placement for rehab-for d/c to [place] 12/01 (2) UTI (urinary tract infection): Plan: Klebsiella isolated. Treated w/ Rocephin x 1 week LD 11/27/21. (3) Dizziness: Plan: We talked about as needed meclizine for her chronic intermittent vertigo. 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 Residual left extremity mild weakness. May have worsening of weakenss from UTI. (5) Chronic kidney disease: Plan: SONIDO II on CKD IIIb-Improved - Continue to Monitor intake and output. - Holding Lasix since admission - [employer] improved on today's labs (6) HTN (hypertension): Plan: Clonidine has been discontinued. Continue other medications. (7) Major depressive disorder: Plan: Currently on multiple medications. Appreciate psychiatry recommendations. - Continue Buspar, Wellbutrin, Zoloft, and low dose Rexulti - D/c Klonopin (8) Anxiety: Plan: Stable. transition away from benzos, d/c Klonopin (9) Morbid obesity: Plan: Patient may benefit from bariatric medicine consultation to decrease overall CV mortality/morbidity as well as assisting with her mobility Plan VTE Prophylaxis - heparin 5000 units SQ Q8H Diet - T2DM Disposition-snf w/ rehab. CM on board, accepted with bed available at [facility] on 12/01 Plan d/w Dr. Garcia. Admission and Anticipated Discharge Date Admission Date: November 20, 2021 Subjective Patient seen on daily round today. She is resting comfortably in bed and offers no complaints/concerns. She has been medically stable for days awaiting discharge to a rehab facility. Review of Systems Review of Systems: All systems reviewed and are unremarkable except as noted in HPI and below. Denies fever, chills, fatigue, headache, nasal congestion, sore throat, cough, chest pain, shortness of breath, palpitations, orthopnea, PND, abdominal pain, n/v/d, constipation, dysuria, hematuria, frequency, back pain, joint pain or swelling, easy bruising or bleeding, skin lesions or rashes. Physical Exam Physical Exam: GENERAL: 76 yo Well-developed, well-nourished WM. NAD. LUNGS: Clear to auscultation bilaterally. No W/R/R. CARDIOVASCULAR: Regular rate and rhythm. ABDOMEN: Soft, non-tender and non-distended. BS normoactive x 4 quad. EXTREMITIES: No edema. Non-tender. Peripheral pulses +2/4. NEUROLOGIC: A&O x3. PSYCHIATRIC: Cooperative. Appropriate mood and affect. SKIN: Warm, dry, intact. No rashes or lesions. Results & Data Results & Data ([facility]) Vital Signs (Past 12 Hours) Vital Signs Temp Pulse Resp BP Pulse Ox O2 Del Method 11/30/21 10:36 Room Air 11/30/21 07:30 36.5 C 78 20 154/73 H 93 Room Air Laboratory Results no labs PG Care Time/CCT Total # of Minutes Spent Total Time Spent with Patient: Total time spent is greater than 50% in coordination of care (as documented) at patient's floor/unit and/or counseling patient: Coding Level of Care Code 14598 Subseq Hosp Care Lvl 1 Diagnoses Generalized weakness R53.1 UTI (urinary tract infection) N39.0 Dizziness R42 Stroke I63.9 CVA mechanism: unspecified Chronic kidney disease N18.9 HTN (hypertension) I10 Major depressive disorder F32.9 Anxiety F41.9 Morbid obesity E66.01 (1) Stroke CVA mechanism: unspecified Qualified Code(s): I63.9 - Cerebral infarction, unspecified
[2021-11-30] MEDS: MONTELUKAST SODIUM 10 MG TABLET PO SCH (20:33)
[2021-11-30] MEDS: SERTRALINE HCL 100 MG TABLET PO SCH (20:34)
[2021-11-30] MEDS: ZOLPIDEM TARTRATE 5 MG TAB PO SCH (20:34)
[2021-12-01] MEDS: HEPARIN SOD 5,000 UNIT/0.5 ML VIAL SQ SCH ×2 (06:09→13:24)
[2021-12-01] MEDS: LEVOTHYROXINE SODIUM 25 MCG TABLET PO SCH (06:09)
[2021-12-01] MEDS: hydrALAZINE TAB 50 MG TAB PO SCH (08:21)
[2021-12-01] MEDS: LIDOCAINE 5% 1 PATCH TD SCH (08:22)
[2021-12-01] MEDS: ASPIRIN 81 MG ECTAB PO SCH (08:22)
[2021-12-01] MEDS: GABAPENTIN 100 MG CAP PO SCH (08:22)
[2021-12-01] MEDS: carvediloL 12.5 MG TAB PO SCH (08:23)
[2021-12-01] MEDS: amLODIPine BESYLATE 5 MG TAB PO SCH (08:23)
[2021-12-01] MEDS: CALCITRIOL 0.25 MCG CAPSULE PO SCH (08:25)
[2021-12-01] MEDS: FLUTICASONE FUROATE 100MCG 14 PUFFS/INHALER INH SCH (08:25)
--- NOTE | 2021-12-01 12:33 | Discharge Summary ---
Date of Service December 01, 2021 Admission HPI Per Admitting Provider 76 YOF with medical history of: Ambulatory dysfunction, frequent falls, CVA (intraparenchymal hemorrhage), vertigo vs. orthostasis, CKD IIIB, MDD, Anxiety. Patient comes to the [facility] today for complaints of weakness. This has been ongoing for over a month or so, but acutely worsening over the past week for the patient. She reports that she can't even get up and go to the bathroom without feeling like she is going to fall. She is accompanied by her who endorses that she did lower herself to the floor while in the bathroom today, he was able to help her up and get her back into the living room. She endorses overall weakness without any significant complaint. Patient has not followed up with PCP regarding this issue. does endorse that he tried to call this morning but unable to get through so he brought her here. In the [facility] the patient had routine labs performed to include UA. She was noted to have an abnormal UA, increase in her BUN and HEAD OF BUSINESS DEVELOPMENT. She endorses that she is eating and drinking at home without any fevers chills or abdominal pain. She has no focal weakness or abnormal neurological exam. Patient will be admitted to medical surgical floor, continue IV Rocephin for UTI and await cultures. Will send B12, Folate, CK, PO4 level in the AM. Obtain CT abd/pel without contrast identify any kidney stones. COVID test on admission is: NEGATIVE Principal Diagnosis 1. Generalized weakness/debility 2. Klebsiella UTI-resolved 3. [facility] Discharge Exam GENERAL: 76 yo Well-developed, well-nourished WM. NAD. LUNGS: Clear to auscultation bilaterally. No W/R/R. CARDIOVASCULAR: Regular rate and rhythm. ABDOMEN: Soft, non-tender and non-distended. BS normoactive x 4 quad. EXTREMITIES: No edema. Non-tender. Peripheral pulses +2/4. NEUROLOGIC: A&O x3. PSYCHIATRIC: Cooperative. Appropriate mood and affect. SKIN: Warm, dry, intact. No rashes or lesions. Discharge Data Allergies Allergy/AdvReac Type Severity Reaction Status Date / Time fentanyl Allergy Intermediate extreme Verified 10/04/21 15:18 confusion/hallucination amoxicillin Allergy Mild Hives Verified 10/04/21 15:18 Penicillins Allergy Mild RASH TO Verified 10/04/21 15:18 AMOXIL, NO RESP PROBLEMS Consultations 11/20/21 14:39 ED Decision to Admit Stat 11/21/21 15:36 Consult Psychiatry Routine Ordered Studies Abdomen/Pelvis CT 11/20/21 15:[address] WITHOUT CONTRAST CT DOSE: 1222.95 mGy.cm HISTORY: Weakness. UTI with elevated BUN/HEAD OF BUSINESS DEVELOPMENT, eval for stone/hydro TECHNIQUE: Multiaxial CT images of the abdomen and pelvis were performed without contrast. A dose lowering technique was utilized adhering to the principles of ALARA. COMPARISON STUDY: Abdomen and pelvis CT 08/12/2020. FINDINGS: The lung bases are essentially clear. No pneumoperitoneum. No pneumatosis. No acute fractures within the visualized osseous structures. Small fat-containing supraumbilical hernias. This remains unchanged. The bladder is unremarkable. Mild pelvic floor collapse. The uterus and adnexa are within normal limits. No pelvic free fluid. The unenhanced liver, spleen, adrenal glands, and pancreas unremarkable. Small left peripelvic renal cysts, unchanged. This is stable 3.9 cm right renal hypodense lesion which also favors a cyst. Bilateral perinephric edema which is likely chronic. There is mild to moderate bilateral cortical renal scarring. Prior cholecystectomy. No retroperitoneal lymphadenopathy. Normal caliber abdominal aorta. Suboptimal evaluation for bowel pathology due to the lack of intravenous and oral contrast. However, there is no definite bowel wall thickening or obstruction. A few colonic diverticula. No evidence for acute diverticulitis. Normal appendix. IMPRESSION: 1. No renal or ureteral stones. No hydronephrosis. 2. Normal bladder. 3. Colonic diverticulosis. No evidence for acute diverticulitis. 4. Prior cholecystectomy. 5. No bowel wall thickening or obstruction. 6. Additional findings as described above. ACT 112: Negative or not required by law. Electronically signed by: Omero Santana M.D. 11/20/2021 5:21 PM Chest X-Ray 11/21/21 07:57 XR chest 1V portable HISTORY: generalized weakness ?pneumonia COMPARISON: Chest 04/16/2020. FINDINGS: Stable mild cardiomegaly. There are low lung volumes. No focal lung consolidations to suggest pneumonia. No evidence for pulmonary edema. Mild interstitial thickening, unchanged. This is likely chronic. No pleural effusions. No pneumothorax. There is a right shoulder prosthesis. IMPRESSION: No significant change compared to the prior study. No acute process. ACT 112: Negative or not required by law. Electronically signed by: Omero Santana M.D. 11/21/2021 8:39 AM Brain MRI 11/21/21 15:48 MRI OF THE BRAIN WITHOUT CONTRAST CLINICAL HISTORY: new onset vertigo COMPARISON STUDY: MRI of the brain February 20, 2021. TECHNIQUE: Utilizing a 1.5 Yen magnet and dedicated coil, multiplanar, multiecho imaging of the brain was performed without IV contrast. FINDINGS: There are no foci of restricted diffusion to suggest acute infarct. No acute intrathoracic cranial hemorrhage, midline shift or mass effect is present. Ventricular system is unremarkable. Basal cisterns are patent. There are no extra axial collections. Flow-voids for the major intracranial vessels are present. An old periventricular infarct within the left frontal lobe remains unchanged. Hemosiderin deposition within the right parietal lobe represents expected evolution from an previously described intraparenchymal hematoma. White matter T2 hyperintense foci favor mild small vessel disease. These are unchanged. Calvarial signal is normal. No intracranial masses are identified on this unenhanced exam. IMPRESSION: 1. No acute intracranial findings. 2. Expected evolution of the old right parietal lobe intraparenchymal hematoma with hemosiderin deposition. 2. Old periventricular infarct within the left frontal lobe, unchanged. ACT 112: Negative or not required by law. Electronically signed by: Deshawn Joiner M.D. 11/21/2021 8:34 PM Hospital Course (1) Generalized weakness: Metabolic encephalopathy, secondary to Klebsiella UTI (POA) s/p course of Rocephin - Continue PT/OT. Continue vitamin B12 replacement and thyroid replacement. Psychiatry consultation recommendations appreciated for medication adjustment. Reviewed records from [place] regarding recent medication changes. -Abilify discontinued in June -Buspar increased in mid-August currently on hold -Rexulti increased in mid-September to 3mg qhs -Wellbutrin added mid October discontinued 11/25/2021 no new med changes since 11/27/21 awaiting snf placement for rehab-accepted and bed available at [facility] 12/01 (2) UTI (urinary tract infection): Klebsiella isolated. Treated w/ Rocephin x 1 week LD 11/27/21. (3) Dizziness: We talked about as needed meclizine for her chronic intermittent vertigo. 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 Residual left extremity mild weakness. May have worsening of weakenss from UTI. (5) Chronic kidney disease: ELLY on CKD IIIb-Improved - Continue to Monitor intake and output. - Holding Lasix since admission - Renal function returned to baseline (6) HTN (hypertension): Clonidine has been discontinued. Continue other medications. (7) Major depressive disorder: Currently on multiple medications. Appreciate psychiatry recommendations. - Continue Wellbutrin, Zoloft, and low dose Rexulti - D/c'd Klonopin - Pt did not want to resume Bupsar as she didn't feel it helped - Vistaril PRN anxiety symptoms (8) Anxiety: Stable. transition away from benzos, d/c Klonopin (9) Morbid obesity: Patient may benefit from bariatric medicine consultation to decrease overall CV mortality/morbidity as well as assisting with her mobility Plan Patient is medically and hemodynamically stable for discharge to SNF for rehab today. [facility] CM to arrange transport. Advised f/u with pcp upon d/c from rehab. Plan d/w Dr. Alexander who is in agreement. Total Time Total Time Spent Total Time Spent (In Minutes): >30 minutes Discharge Plan Discharge Items Patient Disposition: Transfer Long-Term Fac Reason For Visit: WEAKNESS, UTI Discharge Diagnosis: generalized weakness, urinary tract infection (resolved) Activity: As commented below Activity Comment: with assistance as tolerated Non-emergency contact: Primary Care Provider and Psychiatrist Call non-emergency contact if: you have any medication questions and your symptoms worsen Follow-up/Referrals: [facility] [Outside] - 12/25/21 1:00 pm (Follow-up psych appointment ) Neri Denson MD [Primary Care Provider] - Diet: Carb Consistent or DM2 Addtl Attending Provider Instructions: You were hospitalized mainly due to generalized weakness, urinary tract infection, and concerns for possible stroke. You were treated with a course of antibiotics for your urinary tract infection. You underwent brain imaging which was negative for a new stroke. Therapy was consulted due to your weakness and recommended a short stay in a rehab facility to improve your strength and stability prior to returning home. You were seen by psychiatry during your stay due to your major depressive disorder. Some adjustments were made in your medications with some medications being stopped and some being added. Please take your medications as outlined below. Discard any medications that you are no longer to be taking according to your discharge instructions. Follow up with [facility] medication management as scheduled. You were also started on a medication called Levothyroxine which is to support your thyroid function. You were found to have an underactive thyroid gland. You will need to have follow up thyroid function tests in 8 weeks. Adjustment in this medication may be warranted based on the results of your tests. This will be deferred to your primary care doctor to follow up on. You have been arranged to go to [facility] for your rehab. Following discharge from your stay in rehab, it is advised that you follow up with you family doctor. If you have any questions after you are discharged, please call the nonemergency number listed on your discharge paperwork. In the event of a medical emergency, call 911. Pending Studies at Discharge: No Stand-Alone Forms: [facility] Skilled Items Patient informed of condition?: Yes DNR: No Discharge Level of Care: Skilled Communicable Disease: No Discharge Prognosis: Stable Lines: None Urinary Catheter: No Medications and DC Order Prescriptions: New sertraline 100 mg tablet 100 mg PO HS Qty: 30 0RF hydroxyzine HCl 25 mg tablet 25 mg PO Q6H PRN (Reason: anxiety) Qty: 120 0RF levothyroxine 25 mcg tablet 25 mcg PO DAILY Qty: 30 0RF Rexulti 3 mg tablet 1.5 mg PO DAILY Qty: 15 0RF zolpidem [Ambien] 5 mg tablet 5 mg PO HS PRN (Reason: insomnia) Qty: 30 0RF Continued montelukast 10 mg tablet 10 mg PO HS Qty: 90 3RF cholecalciferol (vitamin D3) [Vitamin D3] 25 mcg (1,000 unit) tablet 50 mcg PO QAM Qty: 90 3RF carvedilol [Coreg] 12.5 mg tablet 12.5 mg PO AMHS Rx Instructions: must administer with a meal/food aspirin 81 mg tablet,delayed release (DR/EC) 81 mg PO DAILY Qty: 90 3RF calcitriol 0.25 mcg capsule 0.25 mcg PO QAM Qty: 90 3RF Hold Instructions: Home Medication placed on hold at Doctor's office gabapentin 100 mg capsule 100 mg PO BID albuterol sulfate 90 mcg/actuation HFA aerosol inhaler 2 puff inhalation Q6H PRN (Reason: Wheezing) fluticasone propionate [Flovent HFA] 1 inh inhalation DAILY PRN (Reason: Wheezing) hydralazine 50 mg tablet 50 mg PO BID Rx Instructions: AM & HS amlodipine 10 mg tablet 10 mg PO DAILY bupropion HCl 100 mg tablet sustained-release 12 hr 100 mg PO DAILY Discontinued Rexulti 1 mg tablet 3 mg PO HS furosemide 20 mg tablet 20 mg PO DAILY Qty: 90 3RF alprazolam 1 mg tablet 1 mg PO AMHS Rx Instructions: 0.5mg evening, 1mg at night clonidine HCl 0.1 mg tablet 0.1 mg PO AMHS zolpidem 10 mg tablet 10 mg PO HS buspirone 15 mg tablet 15 mg PO TID sertraline 100 mg tablet 200 mg PO HS Discharge Orders: Discharge Order (Routine); Ordered 12/01/21 Ordered By: Ayla Peters Admission Data Admit Date/Time: 11/20/21 15:35 Attending Provider: John Alexander Admit Provider: Malik Mas Primary Care Provider: Neri Denson Other Providers: Malik Mas ; [facility] ; Leti Mathur ; Rivka Lambert ; Margarita Mcfarlane ; [place],[facility] Coding Level of Care Code D/C DAY MANAGEMENT >30 MINS Diagnoses Generalized weakness R53.1 UTI (urinary tract infection) N39.0 Dizziness R42 Stroke I63.9 CVA mechanism: unspecified Chronic kidney disease N18.9 HTN (hypertension) I10 Major depressive disorder F32.9 Anxiety F41.9 Morbid obesity E66.01
== END 2021-12-01 17:15 ==
LOC: ED 12:50 → SUATTDRO 15:35 → EDINP 15:35 → INTOOBSV 15:35 → 3E 18:39

== ENCOUNTER 2024-10-20 22:00 | Inpatient (IN) ==
[2024-10-20] MEDS: SODIUM CHLORIDE 0.9% 500 ML IV STA (22:20)
[2024-10-20] MEDS: ONDANSETRON INJ 2 MG/ML 2 ML VIAL IV STA (22:22)
[2024-10-20] MEDS: ACETAMINOPHEN 1,000 MG/100 ML VIAL IV STA (22:25)
[2024-10-20 22:27] LABS: Hematocrit (blood only) 38.5 % (37.0-47.0); Hemoglobin 12.7 g/dl (12.0-16.0); Immature Granulocytes # (auto) 0.13 K/uL (0.01-0.20); Immature Granulocytes % (auto) 1.1 %; Mean Corpuscular Hemoglobin 31.5 pg (25.0-34.0); Mean Corpuscular Volume 95.5 fL (80.0-100.0); Platelet Count 194 K/uL (130-400); RDW Standard Deviation 47.4 fL (36.4-46.3); Red Blood Count 4.03 M/uL (4.20-5.40); White Blood Count 11.71 K/ul (4.8-10.8)
[2024-10-20 22:44] LABS: Alanine Aminotransferase 9.0 U/L (7-52); Albumin Globulin Ratio 1.4 (0.9-2); Alkaline Phosphatase 50.0 U/L (34-104); Anion Gap 10.0 (3-11); Bilirubin,Total 0.7 mg/dl (0.2-1.0); Blood Urea Nitrogen 22.0 mg/dl (6-23); Calcium 9.2 mg/dl (8.6-10.3); Carbon Dioxide 24.0 mmol/L (21-32); Chloride 107.0 mmol/L (98-107); Creatinine Clr Calc Pharmacy 30.8 ml/min; Globulin 3.0 gm/dl (2.5-4.0); Glucose 138.0 mg/dl (70-99(Fasting)); Lipase 13.0 U/L (11-82); Magnesium 1.9 mg/dl (1.7-2.4); Potassium 3.9 mmol/L (3.5-5.1); Sodium 141.0 mmol/L (136-145); Total Protein 7.3 gm/dl (6.0-8.3)
--- NOTE | 2024-10-20 22:47 | Emergency Department Note ---
History of Present Illness General Chief complaint: Abdominal Pain Stated complaint: ABDOMINAL PAIN, N/V History of Present Illness Maximum Pain Intensity: 8 This 79-year-old female presents to the ER via EMS complaining nausea, vomiting, diarrhea and left lower abdominal pain for the past day. No well water. No recent antibiotics. No recent travel. No blood or black in the stool or emesis. Patient denies chest pain, dyspnea, fever, chills, cough, congestion, flulike illness. Gallbladder has been surgically removed. Home Medications Medication Instructions Recorded Confirmed Type cholecalciferol (vitamin D3) 25 50 mcg (2 x 25 mcg (1,000 unit)) 09/02/20 10/20/24 Rx mcg (1,000 unit) tablet (Vitamin PO QAM #90 tabs D3) aspirin 81 mg tablet,delayed 81 mg PO DAILY #90 tabs 04/06/21 10/20/24 Rx release albuterol sulfate 90 mcg/actuation 2 puff inhalation Q6H PRN Wheezing 09/14/21 10/20/24 History aerosol inhaler sertraline 100 mg tablet 100 mg PO HS #30 tabs 12/01/21 10/20/24 Rx cranberry 500 mg capsule 500 mg PO BID 10/23/22 10/20/24 History nystatin 100,000 unit/gram topical 1 applic topical BID PRN 05/02/23 10/20/24 Rx powder (Nystop) irritation #60 grams amlodipine 10 mg tablet 10 mg PO DAILY #90 tabs 12/25/23 10/20/24 Rx foam bandage 6" X 6" (Optifoam) #10 ea 01/02/24 09/28/24 Rx levothyroxine 50 mcg tablet 50 mcg PO DAILY #90 tabs 01/31/24 10/20/24 Rx carvedilol 12.5 mg tablet (Coreg) 12.5 mg PO BID #60 tabs 05/12/24 10/20/24 Rx gabapentin 300 mg capsule 300 mg PO BID 07/20/24 10/20/24 History lamotrigine 100 mg tablet 100 mg PO DAILY 07/20/24 10/20/24 History mupirocin 2 % topical ointment 1 applic topical BID PRN rash #22 07/21/24 10/20/24 Rx grams hydralazine 50 mg tablet 50 mg PO TID #90 tabs 09/28/24 10/20/24 Rx triamcinolone acetonide 0.05 % 1 applic topical BID PRN rash #430 09/28/24 10/20/24 Rx topical ointment grams hydroxyzine HCl 25 mg tablet 25 mg PO .COMPLEX PRN anxiety #60 10/12/24 10/20/24 Rx tabs Allergies Allergy/AdvReac Type Severity Reaction Status Date / Time amoxicillin Allergy Intermediate Hives Verified 10/20/24 23:24 fentanyl Allergy Intermediate extreme Verified 10/20/24 23:24 confusion/hallucination Penicillins Allergy Mild RASH TO Verified 10/20/24 23:24 AMOXIL, NO RESP PROBLEMS Past Med/Surg History Problem List (Updated 10/21/24 @ 03:20 by Laly Faust PA-C) Acute UTI (Acute) Ureterolithiasis (Acute) Renal colic on left side (Acute) Urolithiasis Urinary incontinence Gait instability Recent urinary tract infection MAXIMILIANO (generalized anxiety disorder) CKD (chronic kidney disease) (Acute) Weakness (Acute) Generalized weakness Morbid obesity History of intracerebral hemorrhage without residual deficit Vertigo Status post reverse arthroplasty of right shoulder Closed fracture of right proximal humerus (Acute) Hypercholesterolemia Secondary hyperparathyroidism (Chronic) Stroke 11/2020 Chronic kidney disease (Chronic) Anxiety (Chronic) HTN (hypertension) GERD (gastroesophageal reflux disease) Major depressive disorder Medical History Anxiety History of urinary incontinence Hypercholesteremia History of intracerebral hemorrhage without residual deficit (11/2020) no residual effects Hypertension CKD (chronic kidney disease), stage IV f/u in nephrology Lightheadedness occasional "sometimes dependent on anxiety level" Osteoarthritis Irregular heart beats hx; no longer needs to follows with Dr. Orozco Wheezing intermittent---reason for inhaler Morbid obesity Right carotid bruit Depression Surgical History Status post reverse arthroplasty of right shoulder (2021) History of right knee joint replacement History of dilatation and curettage History of bilateral tubal ligation History of total left knee replacement (TKR) History of cholecystectomy History of colonoscopy (2019) History of esophagogastroduodenoscopy (EGD) History of tooth extraction Family History Mother , age 82 of complications of diabetes Heart disease Stroke Family history of diabetes mellitus Grandmother (Maternal) Family history of diabetes mellitus Father , age 80 of liver issues Liver disease Other No family history of adverse response to anesthesia Social History Smoking Status: Never smoker Second Hand Exposure: No; Do You Dip or Chew Tobacco: No; Hx Alcohol Use: No Hx Substance Use: No Preferred Language: Icelandic Communication Ability: Effective Hotel Director Required: No Beliefs That Will Affect Care: None marital status: Current Living Situation: Spouse current occupational status: retired 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 Feels Safe at Home: Yes Seatbelt Use: always Assistive Devices: Glasses and Wheelchair Review of Systems A total of 10 systems reviewed and were otherwise negative Physical Exam Vital Signs Vital Signs - 24 hr 10/20/24 22:02 10/20/24 22:04 10/20/24 22:26 Temperature 36.9 C Temperature Source Oral Pulse Rate 97 H 89 Pulse Rate [Apical] 92 H Respiratory Rate 20 24 Respiratory Effort / Characteristics Non-Labored Spontaneous Non-Labored Spontaneous Respiratory Depth Normal Normal Respiratory Pattern Regular Blood Pressure 214/101 H Blood Pressure [Right Arm] 211/94 H Blood Pressure Mean 138 Blood Pressure Mean [Right Arm] 133 Blood Pressure Position [Right Arm] Semi-fowlers Pulse Oximetry 96 95 Oxygen Delivery Method Room Air Room Air Oxygen Flow Rate Sepsis Recent Fever Within 48 Hours No Sepsis New/Unexplained Change in Mental Status No Sepsis Action Taken by Nursing No Action Required 10/20/24 22:26 10/21/24 00:00 10/21/24 01:58 Temperature 36.9 C Temperature Source Oral Pulse Rate 96 H 111 H Pulse Rate [Apical] 100 H Respiratory Rate 22 22 Respiratory Effort / Characteristics Non-Labored Spontaneous Respiratory Depth Normal Respiratory Pattern Regular Blood Pressure Blood Pressure [Right Arm] 179/94 H Blood Pressure Mean Blood Pressure Mean [Right Arm] 122 Blood Pressure Position [Right Arm] Semi-fowlers Pulse Oximetry 96 92 Oxygen Delivery Method Room Air Room Air Oxygen Flow Rate Sepsis Recent Fever Within 48 Hours Sepsis New/Unexplained Change in Mental Status Sepsis Action Taken by Nursing 10/21/24 02:00 10/21/24 02:55 Temperature 36.7 C 36.7 C Temperature Source Oral Oral Pulse Rate 106 H Pulse Rate [Apical] 95 H Respiratory Rate 20 23 Respiratory Effort / Characteristics Non-Labored Spontaneous Respiratory Depth Normal Respiratory Pattern Regular Blood Pressure 126/84 Blood Pressure [Right Arm] 149/90 H Blood Pressure Mean Blood Pressure Mean [Right Arm] 109 Blood Pressure Position [Right Arm] Semi-fowlers Pulse Oximetry 96 97 Oxygen Delivery Method Room Air Nasal Cannula Oxygen Flow Rate 2 Sepsis Recent Fever Within 48 Hours Sepsis New/Unexplained Change in Mental Status Sepsis Action Taken by Nursing VITALS: Vitals are noted on the nurse's note and reviewed by myself. Vital signs stable. GENERAL: Pleasant patient, in no acute distress, nondiaphoretic, well-developed well-nourished. SKIN: Capillary reflex less than 2 seconds. HEENT: Normocephalic. PERRLA. EOMI. Nares patent. Mucous membranes moist. Neck is supple without nuchal rigidity. HEART: Regular rate and rhythm LUNGS: Clear to auscultation bilaterally without wheezes, rales or rhonchi. No retractions or accessory muscle use. ABDOMEN: Positive bowel sounds x 4. Normal tympanic percussion. Soft, tender to palpation lower abdomen, without masses or organomegaly. Temple sign negative. No guarding or rebound tenderness. no CVA tenderness MUSCULOSKELETAL: No gross musculoskeletal defects. NEURO: Patient was alert and oriented to person place and time. No focal neurological deficits. Course Administered Medications Hydromorphone HCl (Hydromorphone Inj 0.5 Mg/0.5 Ml Syr) 0.5 mg IV Q3H PRN PRN Reason: Pain (6,7,8,9,10) Stop: 11/04/24 02:23 Last Admin: 10/21/24 02:33 Dose: 0.5 mg Documented By: OMID Lactated Ringer's (Lr) 1,000 mls @ 125 mls/hr IV .Q8H MONSE Stop: 10/24/24 02:29 Last Admin: 10/21/24 02:48 Dose: 125 mls/hr Documented By: HEMA Discontinued Medications Sodium Chloride (Nss) 500 mls @ 999 mls/hr IV .Q31M STA Stop: 10/20/24 22:36 Last Infusion: 10/21/24 00:04 Dose: Infused Documented By: Admin: 10/20/24 22:20 Dose: 999 mls/hr Documented By: MARIANA Acetaminophen (Ofirmev) 1,000 mg in 100 mls @ 400 mls/hr IV NOW STA Stop: 10/20/24 22:20 Last Infusion: 10/21/24 00:04 Dose: Infused Documented By: Admin: 10/20/24 22:25 Dose: 400 mls/hr Documented By: MARIANA Sodium Chloride (Nss) 500 mls @ 999 mls/hr IV .Q31M ONE Stop: 10/20/24 23:25 Last Infusion: 10/21/24 01:12 Dose: Infused Documented By: Admin: 10/20/24 23:51 Dose: 999 mls/hr Documented By: OMID Famotidine (Pepcid 20mg Iv Push) 20 mg in 5 mls @ 2.5 mls/min IV NOW STA Stop: 10/20/24 22:57 Last Admin: 10/20/24 23:47 Dose: 2.5 mls/min Documented By: OMID Ceftriaxone Sodium (Rocephin) 2,000 mg in 50 mls @ 100 mls/hr IV NOW STA Stop: 10/21/24 00:36 Last Infusion: 10/21/24 02:49 Dose: Infused Documented By: Admin: 10/21/24 01:28 Dose: 100 mls/hr Documented By: OMID Ioversol (Optiray 320 100ml) 100 ml IV ONCE ONE Stop: 10/21/24 00:28 Last Admin: 10/21/24 00:28 Dose: 93 ml Documented By: MARYAM Metoclopramide HCl (Metoclopramide Hcl Inj 5 Mg/Ml 2 Ml Vial) 10 mg IV NOW STA Stop: 10/21/24 02:25 Last Admin: 10/21/24 02:33 Dose: 10 mg Documented By: OMID Morphine Sulfate (Morphine Sulfate 4 Mg/Ml 1 Ml Carp\\Vial) 4 mg IV NOW STA Stop: 10/20/24 23:37 Last Admin: 10/20/24 23:47 Dose: 4 mg Documented By: OMID Morphine Sulfate (Morphine Sulfate 4 Mg/Ml 1 Ml Carp\\Vial) 4 mg IV NOW STA Stop: 10/21/24 02:19 Last Admin: 10/21/24 02:48 Dose: Not Given Documented By: HEMA Ondansetron HCl (Ondansetron Inj 2 Mg/Ml 2 Ml Vial) 4 mg IV NOW STA Stop: 10/20/24 22:07 Last Admin: 10/20/24 22:22 Dose: 4 mg Documented By: MARIANA Medical Decision Making Medical Records Attestation: I reviewed the patient's medical records. Home Medications Current Medication List: was personally reviewed by me Laboratory Data Attestation: I reviewed the patient's lab results. 10/20/24 22:00 10/20/24 22:00 Lab Results 10/20/24 10/20/24 10/21/24 Range/Units 22:00 22:47 00:59 WBC 11.71 H (4.8-10.8) K/ul RBC 4.03 L (4.20-5.40) M/uL Hgb 12.7 (12.0-16.0) g/dl Hct 38.5 (37.0-47.0) % MCV 95.5 (80.0-100.0) fL MCH 31.5 (25.0-34.0) pg MCHC 33.0 (32.0-36.0) g/dL RDW Std Deviation 47.4 H (36.4-46.3) fL RDW Coeff of Chauncey 13.4 (11.5-14.5) % Plt Count 194 (130-400) K/uL MPV 9.6 (9.4-12.4) fL Immature Gran % (Auto) 1.1 % Neut % (Auto) 84.0 % Lymph % (Auto) 9.1 % [place] % (Auto) 4.7 % Eos % (Auto) 0.6 % Baso % (Auto) 0.5 % Neut # (Auto) 9.84 H (1.40-6.50) K/uL Lymph # (Auto) 1.06 L (1.20-3.40) K/uL [place] # (Auto) 0.55 (0.11-0.59) K/uL Eos # (Auto) 0.07 (0.00-0.50) K/uL Baso # (Auto) 0.06 (0.00-0.20) K/uL Immature Gran # (Auto) 0.13 (0.01-0.20) K/uL Sodium 141 (136-145) mmol/L Potassium 3.9 (3.5-5.1) mmol/L Chloride 107 (98-107) mmol/L Carbon Dioxide 24 (21-32) mmol/L Anion Gap 10 (3-11) BUN 22 (6-23) mg/dl Creatinine 1.62 H (0.6-1.2) mg/dl Est Cr Clr Drug Dosing 30.8 ml/min eGFR 32.52 BUN/Creatinine Ratio 13.6 (10-20) Glucose 138 H (70-99(Fasting)) mg/dl Lactate 2.4 H* (0.4-2.0) mmol/L Calcium 9.2 (8.6-10.3) mg/dl Magnesium 1.9 (1.7-2.4) mg/dl Total Bilirubin 0.7 (0.2-1.0) mg/dl AST 15 (13-39) U/L ALT 9 (7-52) U/L Alkaline Phosphatase 50 (34-104) U/L Total Protein 7.3 (6.0-8.3) gm/dl Albumin 4.3 (3.4-5.0) gm/dl Globulin 3.0 (2.5-4.0) gm/dl Albumin/Globulin Ratio 1.4 (0.9-2) Lipase 13 (11-82) U/L Urine Color Yellow Urine Appearance Clear (Clear) Urine pH 5.0 (4.5-7.5) Ur Specific [place] 1.020 (1.000-1.030) Urine Protein 3+ H (Negative) Urine Glucose (UA) Negative (Negative) Urine Ketones Trace H (Negative) Urine Blood Negative (Negative) Urine Nitrite Positive A (Negative) Urine Bilirubin Negative (Negative) Urine Urobilinogen Negative (Negative) Ur Leukocyte Esterase 1+ H (Negative) Urine WBC (Auto) 21-50 H (0-5) /hpf Urine RBC (Auto) 0-2 (0-2) /hpf U Hyaline Cast (Auto) 0-2 (0-2) /lpf U Epithel Cells (Auto) 0-2 (0-2) /hpf Urine Bacteria (Auto) 4+ H (None Seen) Urine Comment 10/21/ Range/Units 02:49 WBC (4.8-10.8) K/ul RBC (4.20-5.40) M/uL Hgb (12.0-16.0) g/dl Hct (37.0-47.0) % MCV (80.0-100.0) fL MCH (25.0-34.0) pg MCHC (32.0-36.0) g/dL RDW Std Deviation (36.4-46.3) fL RDW Coeff of Chauncey (11.5-14.5) % Plt Count (130-400) K/uL MPV (9.4-12.4) fL Immature Gran % (Auto) % Neut % (Auto) % Lymph % (Auto) % [place] % (Auto) % Eos % (Auto) % Baso % (Auto) % Neut # (Auto) (1.40-6.50) K/uL Lymph # (Auto) (1.20-3.40) K/uL [place] # (Auto) (0.11-0.59) K/uL Eos # (Auto) (0.00-0.50) K/uL Baso # (Auto) (0.00-0.20) K/uL Immature Gran # (Auto) (0.01-0.20) K/uL Sodium (136-145) mmol/L Potassium (3.5-5.1) mmol/L Chloride (98-107) mmol/L Carbon Dioxide (21-32) mmol/L Anion Gap (3-11) BUN (6-23) mg/dl Creatinine (0.6-1.2) mg/dl Est Cr Clr Drug Dosing ml/min eGFR BUN/Creatinine Ratio (10-20) Glucose (70-99(Fasting)) mg/dl Lactate 1.6 (0.4-2.0) mmol/L Calcium (8.6-10.3) mg/dl Magnesium (1.7-2.4) mg/dl Total Bilirubin (0.2-1.0) mg/dl AST (13-39) U/L ALT (7-52) U/L Alkaline Phosphatase (34-104) U/L Total Protein (6.0-8.3) gm/dl Albumin (3.4-5.0) gm/dl Globulin (2.5-4.0) gm/dl Albumin/Globulin Ratio (0.9-2) Lipase (11-82) U/L Urine Color Urine Appearance (Clear) Urine pH (4.5-7.5) Ur Specific [place] (1.000-1.030) Urine Protein (Negative) Urine Glucose (UA) (Negative) Urine Ketones (Negative) Urine Blood (Negative) Urine Nitrite (Negative) Urine Bilirubin (Negative) Urine Urobilinogen (Negative) Ur Leukocyte Esterase (Negative) Urine WBC (Auto) (0-5) /hpf Urine RBC (Auto) (0-2) /hpf U Hyaline Cast (Auto) (0-2) /lpf U Epithel Cells (Auto) (0-2) /hpf Urine Bacteria (Auto) (None Seen) Urine Comment Imaging Data Attestation: I personally reviewed and interpreted this imaging study as follows: Radiologist's Impression: Abdomen/Pelvis CT 10/20/24 22:07 EXAM: CT abd pelvis IV con only CLINICAL HISTORY: LLQ pain TECHNIQUE: Contiguous axial images were obtained from the level of the diaphragm to the pubic symphysis with intravenous contrast. Coronal and sagittal reconstructions were likewise performed and indicated to increase the sensitivity for detecting clinically relevant pathology. If IV contrast material had not been administered, the likelihood of detecting abnormalities relevant to the patient's condition would have been substantially decreased. CT scan was performed according to ALARA (as low as reasonable achievable). COMPARISON: Oct 15:31:34 [employer] WORK[employer] FINDINGS: The visualized lung bases are clear. Sliding hiatus hernia noted. The liver is normal in size and attenuation. No focal liver lesions are seen. There is no intra or extrahepatic biliary ductal dilatation. Hepatic vasculature is patent. The gallbladder is removed. The spleen, pancreas, and adrenal glands are unremarkable. The kidneys are normal in size and attenuation. There is no hydronephrosis or perinephric fat stranding. About 44 x 22 mm sized cortical cysts noted involving right kidney - Bosniak type I . Left kidney shows mild hydronephrosis and hydroureter up to an obstructing calculus of size 2 mm involving left lower ureter, 12 mm proximal to vesicoureteric junction. Few hyperdense foci are noted within the calyx of bilateral kidneys- possibility of excreted contrast /calculi ( kindly correlate with non contrast study). The ureters are normal in caliber and no ureteral calculi are seen. The bladder is normal in contour. Pelvic viscera are unremarkable. No focal or diffuse bowel wall thickening or evidence of bowel obstruction is identified. The appendix is visualized in the right lower quadrant and appears within normal limits. Abdominal and pelvic vasculature is patent. No adenopathy or fluid collections are seen. No aggressive appearing osseous lesions are identified. Fat containing supraumbilical hernia. IMPRESSION: 1. Left kidney shows mild hydronephrosis and hydroureter up to an obstructing calculus of size 2 mm involving left lower ureter, 12 mm proximal to vesicoureteric junction.-new finding. 2. Few hyperdense foci are noted within the calyx of bilateral kidneys- possibility of excreted contrast /calculi ( kindly correlate with non contrast study). 3. Fat containing supraumbilical hernia.-stable. Electronically signed by Edwar Moore 10-21-2024 01:29 AM MDM Narrative Prior records/ancillary studies reviewed. Triage Nursing notes reviewed. Additional history obtained from the family. The patient's history was concerning for nausea, vomiting, diarrhea, and abdominal pain. Differential diagnosis: Etiologies such as gastroenteritis, food borne illness, infections, appendicitis, diverticulitis, inflammatory bowel disease, obstruction, GI bleed, biliary pathology, as well as others were entertained. Physical examination findings: As above. Abdominal examination revealed tender. Vital signs reviewed and revealed reviewed. ER treatment provided: IV hydrationL NSS. Zofran Tylenol and Pepcid were ordered Rocephin was ordered for UTI Morphine was given for pain On reassessment the patient felt better. Patient was tolerating p.o. intake. Diagnostics interpretation by me: The labs Independently Interpreted by myself revealed mild leukocytosis, mild hyperglycemia without DKA Urine concerning for infection and sent for culture. Prior culture was reviewed. [facility] [address] [place] [id number] / Director: Natasha Bynum M.D. Clinical Laboratory Report Name: AZRA MACEDO Acct: [id number] Status: [facility] : 1945 [facility] [place] Date: 0 05/11/22 Age: 79 Sex: F Dis Date: Loc: Laboratory Specimen Drop Off Spec: [id number] Collected: 05/11/22 Received: 05/11/[address]: Pedro John, Source: Urine,Clean Catch OV Order: Ordered: Urine Culture Procedure Result Verified Site Urine Culture Final 05/13/22-123 Organism 1 Klebsiella pneumoniae [place] Count >100,000 CFU/ml Sens Sensitivities to Follow Kleb pneum RX M.I.C. --- --------- Amox/Clav S <=8/4 Amp/Sul S <=8/4 Cefazolin S <=2 Cefepime S <=2 Ceftriaxone S <=1 Ciprofloxacin S <=0.25 Ertapenem S <=0.5 Gentamicin S <=4 Levofloxacin S <=0.5 Meropenem S <=1 Nitrofurantoin S <=32 Tobramycin S <=4 Trimeth/Sulfa S <=2/38 Pip/Tazo S <=16 S = SENSITIVE I = INTERMEDIATE R = RESISTANT Imaging studies: Imaging was reviewed and read by radiology Consultation: A consultation was placed with the hospitalist. The case was discussed and diagnostics were reviewed. The patient was evaluated in the ER for further treatment. This appears to be consistent with UTI with left renal colic ureterolithiasis. Patient was given antibiotics as above. Prior urine culture was reviewed. Medicine was consulted case discussed. She will be admitted to the medical service. Patient is afebrile nontoxic. She is not vomiting. She is agreeable to treatment plan.. By the evaluation outlined above emergent etiologies such as appendicitis, diverticulitis, obstruction, cardiac sources, mesenteric ischemia, aortic pathology, inflammatory bowel disease, PUD, biliary pathology, as well as others were deemed relatively unlikely. The pt informed about the findings as listed above. All questions were answered and pleased with the treatment. The chart was completed utilizing Ang[employer] voice recognition software. Grammatical errors, random word insertions, pronoun errors, and incomplete sentences are an occassional consequence of this system due to software limitations, ambient noise, and hardware issues. Any formal questions or concerns about the content, text, or information contained within the body of this dictation should be directly addressed to the physician speech language pathology assistant for clarification. Impression & Plan Renal colic on left side, Ureterolithiasis, Acute UTI Discharge Plan Visit Data Chief Complaint: Abdominal Pain Stated Complaint: ABDOMINAL PAIN, N/V ED Provider: Todd Amor ED Midlevel Provider: Laly Faust Discharge Problem: Renal colic on left side, Ureterolithiasis, Acute UTI Patient Disposition: Being Evaluated by Hospitalist Condition: Good Discharge Instructions Interventions: ED Discharge Assessment Last Done: 10/21/24 02:55 Forms Stand Alone Forms: My [employer] Prescriptions Prescriptions: No Action nystatin [Nystop] 100,000 unit/gram powder 1 applic topical BID PRN (Reason: irritation) Qty: 60 1RF Rx Instructions: apply to clean and dry affected area twice daily amlodipine 10 mg tablet 10 mg PO DAILY Qty: 90 3RF (DME) Optifoam 6 X 6 " bandage See Rx Instructions .Route Qty: 10 0RF Rx Instructions: As directed levothyroxine 50 mcg tablet 50 mcg PO DAILY Qty: 90 3RF carvedilol [Coreg] 12.5 mg tablet 12.5 mg PO BID Qty: 60 5RF Rx Instructions: must administer with a meal/food mupirocin 2 % ointment 1 applic topical BID PRN (Reason: rash) Qty: 22 2RF hydroxyzine HCl 25 mg tablet 25 mg PO .COMPLEX PRN (Reason: anxiety) Qty: 60 0RF Patient Comments: takes once daily Rx Instructions: 25 mg orally 2 PILLS AT HS (psych) PRN; cholecalciferol (vitamin D3) [Vitamin D3] 25 mcg (1,000 unit) tablet 50 mcg PO QAM Qty: 90 3RF aspirin 81 mg tablet,delayed release (DR/EC) 81 mg PO DAILY Qty: 90 3RF cranberry 500 mg capsule 500 mg PO BID Rx Instructions: administer with meals albuterol sulfate 90 mcg/actuation HFA aerosol inhaler 2 puff inhalation Q6H PRN (Reason: Wheezing) hydralazine 50 mg tablet 50 mg PO TID Qty: 90 5RF triamcinolone acetonide 0.05 % ointment 1 applic topical BID PRN (Reason: rash) Qty: 430 0RF sertraline 100 mg tablet 100 mg PO HS Qty: 30 0RF gabapentin 300 mg capsule 300 mg PO BID lamotrigine 100 mg tablet 100 mg PO DAILY Referrals Referrals: Iqra Quiroz DO [Primary Care Provider] -
[2024-10-20 23:12] LABS: Appearance Urine Clear (Clear); Bacteria Urine Automated 4+ (None Seen); Cast Urine Automated 0-2 /lpf (0-2); Epithelial Cell Urine Auto 0-2 /hpf (0-2); Glucose Urine UA Negative (Negative); RBC Urine Automated 0-2 /hpf (0-2); WBC Urine Automated 21-50 /hpf (0-5)
[2024-10-20] MEDS: FAMOTIDINE 20MG IV PUSH 20 MG/5 ML SYR IV STA (23:47)
[2024-10-20] MEDS: MoRPHine SULFATE 4 MG/ML 1 ML CARP\\VIAL IV STA (23:47)
[2024-10-20] MEDS: SODIUM CHLORIDE 0.9% 500 ML IV ONE (23:51)
[2024-10-21] MEDS: OPTIRAY 320 100ml IV ONE (00:28)
[2024-10-21] MEDS: cefTRIAXone SODIUM 2,000 MG/50 ML BAG IV STA (01:28)
--- NOTE | 2024-10-21 01:30 | CT Scan Report ---
EXAM: CT abd pelvis IV con only CLINICAL HISTORY: LLQ pain TECHNIQUE: Contiguous axial images were obtained from the level of the diaphragm to the pubic symphysis with intravenous contrast. Coronal and sagittal reconstructions were likewise performed and indicated to increase the sensitivity for detecting clinically relevant pathology. If IV contrast material had not been administered, the likelihood of detecting abnormalities relevant to the patient's condition would have been substantially decreased. CT scan was performed according to ALARA (as low as reasonable achievable). 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 Sliding hiatus hernia noted. The liver is normal in size and attenuation. No focal liver lesions are seen. There is no intra or extrahepatic biliary ductal dilatation. Hepatic vasculature is patent. The gallbladder is removed. The spleen, pancreas, and adrenal glands are unremarkable. The kidneys are normal in size and attenuation. There is no hydronephrosis or perinephric fat stranding. About 44 x 22 mm sized cortical cysts noted involving right kidney - Bosniak type I . Left kidney shows mild hydronephrosis and hydroureter up to an obstructing calculus of size 2 mm involving left lower ureter, 12 mm proximal to vesicoureteric junction. Few hyperdense foci are noted within the calyx of bilateral kidneys- possibility of excreted contrast /calculi ( kindly correlate with non contrast study). The ureters are normal in caliber and no ureteral calculi are seen. The bladder is normal in contour. Pelvic viscera are unremarkable. No focal or diffuse bowel wall thickening or evidence of bowel obstruction is identified. The appendix is visualized in the right lower quadrant and appears within normal limits. Abdominal and pelvic vasculature is patent. No adenopathy or fluid collections are seen. No aggressive appearing osseous lesions are identified. Fat containing supraumbilical hernia. IMPRESSION: 1. Left kidney shows mild hydronephrosis and hydroureter up to an obstructing calculus of size 2 mm involving left lower ureter, 12 mm proximal to vesicoureteric junction.-new finding. 2. Few hyperdense foci are noted within the calyx of bilateral kidneys- possibility of excreted contrast /calculi ( kindly correlate with non contrast study). 3. Fat containing supraumbilical hernia.-stable. Electronically signed by Edwar Moore 10-21-2024 01:29 AM
--- NOTE | 2024-10-21 01:55 | Emergency Department Note ---
ED Visit Note I was consulted by the Advanced Practice Provider, Juliann Faust. I performed a substantive portion of the visit. This includes aspects of: History: This is a 79-year-old female with the PMHx of obesity, prior CVA, HLD, HTN, GERD and CKD presenting to the [facility] ED for nausea, vomiting and diarrhea. She was having LLQ abdominal pain. MDM: Patient presented with GI complaints and workup was initiated with labs as well as imaging. Vitals show that she is hypertensive from her baseline. Does have a heart rate from the low 90s to 110s. Patient did not have a fever. Patient had a CT Abdo/pelvis that was independently interpreted by me and showed multiple nephrolithiasis on the left with hydronephrosis. Urinalysis does appear infected with positive nitrate and leukocyte esterase as well as pyuria and bacteremia. Labs independently interpreted by me show mild leukocytosis at 11k and stable CKD. Lactate minimally elevated with IVFR ongoing. Patient was managed with IV antibiotics, fluids and pain control. Suspect her vital signs are likely related to infection plus a pain response. Plan for admission with urology consultation. Todd Amor DO Emergency Medicine .
--- NOTE | 2024-10-21 01:55 | History & Physical Report ---
Date of Service October 21, 2024 Assessment & Plan (1) UTI (urinary tract infection): (2) Urolithiasis: (3) CKD (chronic kidney disease): Plan 79-year-old female PMHx hypothyroidism, MAXIMILIANO, CKD, generalized weakness, MDD, GERD, and HTN presenting for LLQ abdominal pain with associated N/V/D starting the day of arrival. ED evaluation reveals CBC with leukocytosis 11.72, stable H&H; CMP creatinine 1.62, glucose 138; lactate 2.4, pending repeat s/p fluids; UA positive for infection; CTAP L kidney with mild hydronephrosis and hydroureter to the obstructing calculus of 2 mm involving L lower ureter, 12 mm proximal to the vesicular ureteral junction, few hyperdense foci noted within th e calyx of bilateral kidneys, fat-containing supraumbilical hernia.; Provided with 1L NSS, Zofran 4 mg IV, morphine 4 mg IV, famotidine 20 mg IV, ceftriaxone 2 g IV, and acetaminophen 1 g IV in ED. 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 Not meeting sepsis criteria, but is tachycardic, hypertensive (did not take daily meds). Lactate 2.4 initially, received 1L NSS in ED. Follows with nephro for CKD, baseline Cr 1.5-2.2. Pain 8/10 at time of admission, still nauseous. - CBC leukocytosis 11.72; CMP creatinine 1.62 (at baseline); lactate 2.4, pen ding repeat -- CBC, BMP am - UA positive for infection; pending culture - CTAP L kidney with minor hydronephrosis and hydroureter to the obstructing 2 mm calculus involving L lower ureter, 12 mm proximal to vesicular ureteral junction - IVF LR at 125 mL/hr - Acetaminophen, Dilaudid prn pain - morphine made pt nauseous - Reglan prn N/V -- Zofran did not help nausea per patient - Ceftriaxone IV - Urology consulted -- appreciate input + recs #HTN- Amlodipine, carvedilol, hydralazine- continue #MAXIMILIANO/MDD- Sertraline, Lamotrigine, hydroxyzine - continue #Hypothyroidism- Levothyroxine - continue #GERD- Received famotidine in ED #Asthma- No O2 at baseline; Albuterol inhaler prn - continue #H/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 Please excuse any grammatical errors that may be secondary to use of this software. Admission and Anticipated Discharge Date Admission Date: 10/21/2024 History of Present Illness Chief Complaint: Abdominal pain, LLQ Primary Care Provider: Iqra Quiroz DO 79-year-old female PMHx hypothyroidism, MAXIMILIANO, CKD, generalized weakness, MDD, GERD, and HTN presenting for LLQ abdominal pain with associated N/V/D starting the day of arrival. States that she woke up and felt in normal health. She was able to have breakfast and coffee, but when she went to urinate following this she noticed burning. She has had UTIs in the past and states that this had felt similar. Shortly after this, she started to have L flank pain which only worsened throughout the day. She describes it as a sharp pain that is 10/10 at its worst, and currently an 8/10 on the pain scale. She notes that her abdomen felt more "swollen" the day of arrival as well. Her daughter notes that she was in severe pain around 1600 and waited to be seen. She had 1 episode of emesis, but has had nausea all day. She notes chills, but no fever. Never had this happen before. Denies chest pain, SOB, palpitations, constipation, numbness/tingling, URI symptoms, additional LUTS, weakness, or syncope. She did not take her daily medications. ED evaluation reveals CBC with leukocytosis 11.72, stable H&H; CMP creatinine 1.62, glucose 138; lactate 2.4, pending repeat s/p fluids; UA positive for infection; CTAP L kidney with mild hydronephrosis and hydroureter to the obstructing calculus of 2 mm involving L lower ureter, 12 mm proximal to the vesicular ureteral junction, few hyperdense foci noted within the calyx of bilateral kidneys, fat-containing supraumbilical hernia.; Provided with 1L NSS, Zofran 4 mg IV, morphine 4 mg IV, famotidine 20 mg IV, ceftriaxone 2 g IV, and acetaminophen 1 g IV in ED. Please see Dr. Dinero's attestation for adjustments/additions to treatment plan. Allergies Allergy/AdvReac Type Severity Reaction Status Date / Time amoxicillin Allergy Intermediate Hives Verified 10/20/24 23:24 fentanyl Allergy Intermediate extreme Verified 10/20/24 23:24 confusion/hallucination Penicillins Allergy Mild RASH TO Verified 10/20/24 23:24 AMOXIL, NO RESP PROBLEMS Home Medications Medication Instructions Recorded Confirmed Type cholecalciferol (vitamin D3) 25 50 mcg (2 x 25 mcg (1,000 unit)) 09/02/20 10/20/24 Rx mcg (1,000 unit) tablet (Vitamin PO QAM #90 tabs D3) aspirin 81 mg tablet,delayed 81 mg PO DAILY #90 tabs 04/06/21 10/20/24 Rx release albuterol sulfate 90 mcg/actuation 2 puff inhalation Q6H PRN Wheezing 09/14/21 10/20/24 History aerosol inhaler sertraline 100 mg tablet 100 mg PO HS #30 tabs 12/01/21 10/20/24 Rx cranberry 500 mg capsule 500 mg PO BID 10/23/22 10/20/24 History nystatin 100,000 unit/gram topical 1 applic topical BID PRN 05/02/23 10/20/24 Rx powder (Nystop) irritation #60 grams amlodipine 10 mg tablet 10 mg PO DAILY #90 tabs 12/25/23 10/20/24 Rx foam bandage 6" X 6" (Optifoam) #10 ea 01/02/24 09/28/24 Rx levothyroxine 50 mcg tablet 50 mcg PO DAILY #90 tabs 01/31/24 10/20/24 Rx carvedilol 12.5 mg tablet (Coreg) 12.5 mg PO BID #60 tabs 05/12/24 10/20/24 Rx gabapentin 300 mg capsule 300 mg PO BID 07/20/24 10/20/24 History lamotrigine 100 mg tablet 100 mg PO DAILY 07/20/24 10/20/24 History mupirocin 2 % topical ointment 1 applic topical BID PRN rash #22 07/21/24 10/20/24 Rx grams hydralazine 50 mg tablet 50 mg PO TID #90 tabs 09/28/24 10/20/24 Rx triamcinolone acetonide 0.05 % 1 applic topical BID PRN rash #430 09/28/24 10/20/24 Rx topical ointment grams hydroxyzine HCl 25 mg tablet 25 mg PO .COMPLEX PRN anxiety #60 10/12/24 10/20/24 Rx tabs Past Med/Surg History Problem List (Updated 10/21/24 @ 03:26 by Carine Jay) Acute UTI (Acute) Ureterolithiasis (Acute) Renal colic on left side (Acute) Urolithiasis Urinary incontinence Gait instability Recent urinary tract infection MAXIMILIANO (generalized anxiety disorder) CKD (chronic kidney disease) (Acute) Weakness (Acute) Generalized weakness Morbid obesity History of intracerebral hemorrhage without residual deficit Vertigo Status post reverse arthroplasty of right shoulder Closed fracture of right proximal humerus (Acute) Hypercholesterolemia Secondary hyperparathyroidism (Chronic) Stroke 11/2020 Chronic kidney disease (Chronic) Anxiety (Chronic) HTN (hypertension) GERD (gastroesophageal reflux disease) Major depressive disorder Medical History Anxiety History of urinary incontinence Hypercholesteremia History of intracerebral hemorrhage without residual deficit (11/2020) no residual effects Hypertension CKD (chronic kidney disease), stage IV f/u hi nephrology Lightheadedness occasional "sometimes dependent on anxiety level" Osteoarthritis Irregular heart beats hx; no longer needs to follows with Dr. Orozco Wheezing intermittent---reason for inhaler Morbid obesity Right carotid bruit Depression Surgical History Status post reverse arthroplasty of right shoulder (2021) History of right knee joint replacement History of dilatation and curettage History of bilateral tubal ligation History of total left knee replacement (TKR) History of cholecystectomy History of colonoscopy (2019) History of esophagogastroduodenoscopy (EGD) History of tooth extraction Family History Mother , age 82 of complications of diabetes Heart disease Stroke Family history of diabetes mellitus Grandmother (Maternal) Family history of diabetes mellitus Father , age 80 of liver issues Liver disease Other No family history of adverse response to anesthesia Social History Smoking Status: Never smoker Second Hand Exposure: No; Do You Dip or Chew Tobacco: No; Hx Alcohol Use: No Hx Substance Use: No Preferred Language: [place] Sudanese Communication Ability: Effective Gate Keeper Required: No Beliefs That Will Affect Care: None marital status: Current Living Situation: Spouse current occupational status: retired 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 Feels Safe at Home: Yes Safety Concerns: Feels Safe At This Time Seatbelt Use: always Assistive Devices: Glasses, Walker and Wheelchair Review of Systems Review of Systems: All systems reviewed & are unremarkable except as noted in Subjective Physical Exam Physical Exam: General: No acute distress Skin: Warm and dry Head: Normocephalic, atraumatic Eyes: PERRL, conjunctivae clear, sclera non-icteric ENT: External ear and ear canal without swelling; nose atraumatic; good dentition, tongue normal appearance, pharynx normal Neck: Supple, no LAD Cardio: Tachycardic, regular rhythm, no M/G/R, S1 and S2 normal Resp: No respiratory distress, Lungs CTA in all lobes bilaterally, no wheezes, rales, or rhonchi Abdomen: Soft, symmetric, mild tenderness to palpation LLQ, L flank; No masses or hepatosplenomegaly; Bowel sounds normoactive MSK: No deformities; pulses palpable and equal; trace pitting edema BLE Neuro: Awake, alert; Sensation intact bilaterally; CN grossly intact Psych: Involuntary movements throughout Appropriate mood and affect; good judgement and insight. 2 daughters present in room at time of v isit. Results & Data Results & Data Vital Signs (Past 12 Hours) Vital Signs Temp Pulse Pulse Resp BP BP Pulse Ox 10/20/24 22:26 96 H 22 96 10/20/24 22:26 92 H 24 211/94 H 95 10/20/24 22:04 89 10/20/24 22:02 36.9 C 97 H 20 214/101 H 96 O2 Del Method 10/20/24 22:26 Room Air 10/20/24 22:26 Room Air 10/20/24 22:04 10/20/24 22:02 Room Air Laboratory Results 10/20/24 22:47 Urine Culture - Pending Urine,Clean Catch 10/21/24 10/20/24 10/20/24 00:59 22:47 22:00 WBC 11.71 H RBC 4.03 L Hgb 12.7 Hct 38.5 MCV 95.5 MCH 31.5 MCHC 33.0 RDW Std Deviation 47.4 H RDW Coeff of Chauncey 13.4 Plt Count 194 MPV 9.6 Immature Gran % (Auto) 1.1 Neut % (Auto) 84.0 Lymph % (Auto) 9.1 [place] % (Auto) 4.7 Eos % (Auto) 0.6 Baso % (Auto) 0.5 Neut # (Auto) 9.84 H Lymph # (Auto) 1.06 L [place] # (Auto) 0.55 Eos # (Auto) 0.07 Baso # (Auto) 0.06 Immature Gran # (Auto) 0.13 Sodium 141 Potassium 3.9 Chloride 107 Carbon Dioxide 24 Anion Gap 10 BUN 22 Creatinine 1.62 H Est Cr Clr Drug Dosing 30.8 eGFR 32.52 BUN/Creatinine Ratio 13.6 Glucose 138 H Lactate 2.4 H* Calcium 9.2 Magnesium 1.9 Total Bilirubin 0.7 AST 15 ALT 9 Alkaline Phosphatase 50 Total Protein 7.3 Albumin 4.3 Globulin 3.0 Albumin/Globulin Ratio 1.4 Lipase 13 Urine Color Yellow Urine Appearance Clear Urine pH 5.0 Ur Specific [place] 1.020 Urine Protein 3+ H Urine Glucose (UA) Negative Urine Ketones Trace H Urine Blood Negative Urine Nitrite Positive A Urine Bilirubin Negative Urine Urobilinogen Negative Ur Leukocyte Esterase 1+ H Urine WBC (Auto) 21-50 H Urine RBC (Auto) 0-2 U Hyaline Cast (Auto) 0-2 U Epithel Cells (Auto) 0-2 Urine Bacteria (Auto) 4+ H Urine Comment Diagnostic Findings Abdomen/Pelvis CT 10/20/24 22:07 EXAM: CT abd pelvis IV con only CLINICAL HISTORY: LLQ pain TECHNIQUE: Contiguous axial images were obtained from the level of the diaphragm to the pubic symphysis with intravenous contrast. Coronal and sagittal reconstructions were likewise performed and indicated to increase the sensitivity for detecting clinically relevant pathology. If IV contrast material had not been administered, the likelihood of detecting abnormalities relevant to the patient's condition would have been substantially decreased. CT scan was performed according to ALARA (as low as reasonable achievable). COMPARISON: Oct 15:31:34 HEALTH CONCIERGE FINDINGS: The visualized lung bases are clear. Sliding hiatus hernia noted. The liver is normal in size and attenuation. No focal liver lesions are seen. There is no intra or extrahepatic biliary ductal dilatation. Hepatic vasculature is patent. The gallbladder is removed. The spleen, pancreas, and adrenal glands are unremarkable. The kidneys are normal in size and attenuation. There is no hydronephrosis or perinephric fat stranding. About 44 x 22 mm sized cortical cysts noted involving right kidney - Bosniak type I . Left kidney shows mild hydronephrosis and hydroureter up to an obstructing calculus of size 2 mm involving left lower ureter, 12 mm proximal to vesicoureteric junction. Few hyperdense foci are noted within the calyx of bilateral kidneys- possibility of excreted contrast /calculi ( kindly correlate with non contrast study). The ureters are normal in caliber and no ureteral calculi are seen. The bladder is normal in contour. Pelvic viscera are unremarkable. No focal or diffuse bowel wall thickening or evidence of bowel obstruction is identified. The appendix is visualized in the right lower quadrant and appears within normal limits. Abdominal and pelvic vasculature is patent. No adenopathy or fluid collections are seen. No aggressive appearing osseous lesions are identified. Fat containing supraumbilical hernia. IMPRESSION: 1. Left kidney shows mild hydronephrosis and hydroureter up to an obstructing calculus of size 2 mm involving left lower ureter, 12 mm proximal to vesicoureteric junction.-new finding. 2. Few hyperdense foci are noted within the calyx of bilateral kidneys- possibility of excreted contrast /calculi ( kindly correlate with non contrast study). 3. Fat containing supraumbilical hernia.-stable. Electronically signed by Edwar Moore 10-21-2024 01:29 AM Medications Administered 1L NSS Zofran 4 yumi IV Morphine 4 yumi IV Famotidine 20 yumi IV Ceftriaxone 2 g IV Acetaminophen 1 g IV Code Status & VTE Plan Code Status Conditional code Discussed in detail what "conditional code" entails; patient and 2 daughters understood fully. All questions asked and answered. Patient wishes to proceed with conditional code status in which she desires all cardiac interventions (CPR, ACLS), but does not desire any respiratory support to include intubation. Supervising Physician Co-Signing Physician Notes Patient seen and examined, chart reviewed, case discussed with TERESSA Faust and I agree with the assessment and plan as above Patient with obstructing calculus 2mm in the left lower ureter resulting in mild hydronephrosis and hydroureter. UA suggestive of infection. Prior cultures with puga-sensitive Klebsiella and puga-sensitive E. coli. On exam she is uncomfortable secondary to left flank pain +S1/S2, regular Lungs CTA Abd tenderness in abdomen, left flank pain Ext well perfused Labs and images reviewed Assessment/Plan -NPO -IVF and Antibiotics -Pain control and anti-emetics as needed -Urology consultation appreciated -Remainder as above PG Care Time/CCT Total # of Minutes Spent Total Time Spent with Patient: Total time spent is greater than 50% in coordination of care (as documented) at patient's floor/unit and/or counseling patient: Coding Level of Care Code 71493 INT INP/OBS CARE 375MIN Diagnoses UTI (urinary tract infection) N39.0 Urolithiasis N20.9 CKD (chronic kidney disease) N18.9
[2024-10-21] MEDS: METOCLOPRAMIDE HCL INJ 5 MG/ML 2 ML VIAL IV STA (02:33)
[2024-10-21] MEDS: HYDROmorphone INJ 0.5 MG/0.5 ML SYR IV PRN (02:33)
[2024-10-21] MEDS: LACTATED RINGER'S 1,000 ML IV SCH (02:48)
[2024-10-21] MEDS: MoRPHine SULFATE 4 MG/ML 1 ML CARP\\VIAL IV STA (02:48)
[2024-10-21] MEDS ORDERED: POLYETHYLENE (MIRALAX) 17 GM PACK PO PRN (03:30)
[2024-10-21] MEDS ORDERED: ALBUTEROL HFA 8 GM INHALER INH PRN (03:30)
[2024-10-21] MEDS ORDERED: ACETAMINOPHEN 325 MG TAB PO PRN (03:30)
[2024-10-21] MEDS ORDERED: ONDANSETRON INJ 2 MG/ML 2 ML VIAL IV PRN ×2 (03:30→11:36)
[2024-10-21] MEDS ORDERED: METOCLOPRAMIDE HCL INJ 5 MG/ML 2 ML VIAL IV PRN (03:30)
[2024-10-21] MEDS: LEVOTHYROXINE SODIUM 50 MCG TABLET PO SCH (06:05)
[2024-10-21] MEDS: lamoTRIgine 100 MG TAB PO SCH (08:21)
[2024-10-21] MEDS: GABAPENTIN 300 MG CAP PO SCH (08:21)
--- NOTE | 2024-10-21 08:54 | Hospitalist Progress Note ---
Date of Service October 21, 2024 Assessment & Plan (1) UTI (urinary tract infection): (2) Urolithiasis: (3) CKD (chronic kidney disease): Plan 79-year-old female PMHx hypothyroidism, MAXIMILIANO, CKD, generalized weakness, MDD, GERD, and HTN presenting for LLQ abdominal pain with associated N/V/D starting the day of arrival. ED evaluation reveals CBC with leukocytosis 11.72, stable H&H; CMP creatinine 1.62, glucose 138; lactate 2.4, pending repeat s/p fluids; UA positive for infection; CTAP L kidney with mild hydronephrosis and hydroureter to the obstructing calculus of 2 mm involving L lower ureter, 12 mm proximal to the vesicular ureteral junction, few hyperdense foci noted within th e calyx of bilateral kidneys, fat-containing supraumbilical hernia.; Provided with 1L NSS, Zofran 4 mg IV, morphine 4 mg IV, famotidine 20 mg IV, ceftriaxone 2 g IV, and acetaminophen 1 g IV in ED. #UTI/urolithiasis/CKD Patient with obstructing calculus 2mm in the left lower ureter resulting in mild hydronephrosis and hydroureter. UA suggestive of infection. Prior cultures with puga-sensitive Klebsiella and puga-sensitive E. coli. - CBC leukocytosis 11.72; CMP creatinine 1.62 (at baseline); lactate 2.4, pending repeat -- CBC, BMP am - UA positive for infection; pending culture - CTAP L kidney with minor hydronephrosis and hydroureter to the obstructing 2 mm calculus involving L lower ureter, 12 mm proximal to vesicular ureteral junction Assessment/Plan -NPO -IVF Empirical antibiotics. Follow urine cultures -Pain control and anti-emetics as needed Await urology input #CKD Follows with nephro for CKD, baseline Cr 1.5-2.2 #HTN- Amlodipine, carvedilol, hydralazine- continue #MAXIMILIANO/MDD- Sertraline, Lamotrigine, hydroxyzine - continue #Hypothyroidism- Levothyroxine - continue #GERD- Received famotidine in ED #Asthma- No O2 at baseline; Albuterol inhaler prn - continue #H/o CVA- Parietal lobe infarct 2/2 ICH 2020, RUE weakness as residual deficit - ASA held at admission prioritize resumption Dispo: Admit, PCU VTE Prophylaxis: SCDs This document was dictated utilizing [employer]. Please excuse any grammatical errors that may be secondary to use of this software. Admission and Anticipated Discharge Date Admission Date: October 21, 2024 Subjective Doing well feels much better. Still with left-sided abdominal/flank discomfort. States the pain has improved. Denies nausea vomiting fevers chills hematuria symptoms or any other symptoms at this time. Review of Systems Review of Systems: All systems reviewed & are unremarkable except as noted in Subjective Physical Exam Physical Exam: General: No acute distress Skin: Warm and dry Head: Normocephalic, atraumatic Eyes: PERRL, conjunctivae clear, sclera non-icteric ENT: External ear and ear canal without swelling; nose atraumatic; good dentition, tongue normal appearance, pharynx normal Neck: Supple, no LAD Cardio: s1 s2+ Resp: No respiratory distress, Lungs CTA in all lobes bilaterally, no wheezes, rales, or rhonchi Abdomen: Soft, symmetric, mild tenderness to palpation LLQ, No rebound or guarding. MSK: No deformities; pulses palpable and equal; trace pitting edema BLE Neuro: Awake, alert; Sensation intact bilaterally; CN grossly intact Psych:Appropriate mood and affect; good judgement and insight. Results & Data Results & Data Vital Signs (Past 12 Hours) Vital Signs Temp Pulse Pulse Resp BP BP Pulse Ox 10/21/24 08:34 90 10/21/24 07:55 10/21/24 07:39 36.5 C 89 18 117/71 96 10/21/24 04:05 105 H 10/21/24 03:54 10/21/24 03:35 95 10/21/24 03:30 10/21/24 03:30 37.7 C H 104 H 18 154/72 H 90 10/21/24 02:55 36.7 C 106 H 23 126/84 97 10/21/24 02:00 36.7 C 95 H 20 149/90 H 96 10/21/24 01:58 111 H 10/21/24 00:00 36.9 C 100 H 22 179/94 H 92 10/20/24 22:26 96 H 22 96 10/20/24 22:26 92 H 24 211/94 H 95 10/20/24 22:04 89 10/20/24 22:02 36.9 C 97 H 20 214/101 H 96 Pulse Ox O2 Del Method O2 Del Method O2 Flow Rate O2 Flow Rate 10/21/24 08:34 10/21/24 07:55 Nasal Cannula 2 10/21/24 07:39 Room Air 10/21/24 04:05 10/21/24 03:54 Nasal Cannula 2 10/21/24 03:35 Nasal Cannula 2 10/21/24 03:30 95 Nasal Cannula 2 10/21/24 03:30 Room Air 10/21/24 02:55 Nasal Cannula 2 10/21/24 02:00 Room Air 10/21/24 01:58 10/21/24 00:00 Room Air 10/20/24 22:26 Room Air 10/20/24 22:26 Room Air 10/20/24 22:04 10/20/24 22:02 Room Air PG Care Time/CCT Total # of Minutes Spent Total Time Spent with Patient: Total time spent is greater than 50% in coordination of care (as documented) at patient's floor/unit and/or counseling patient: Coding Level of Care Code 88247 SUB INP/OBS CARE Diagnoses UTI (urinary tract infection) N39.0 Urolithiasis N20.9 CKD (chronic kidney disease) N18.9
--- NOTE | 2024-10-21 10:05 | Urology Consultation ---
Date of Consultation October 21, 2024 Assessment & Plan (1) Acute UTI: (2) Ureterolithiasis: (3) Renal colic on left side: Plan 79-year-old female admitted with an obstructing left ureteral stone and concern for infection. CTAP showed a 2 mm obstructing left ureteral stone. UA concerning for infection, culture pending. Patient received ceftriaxone in the ED. She is afebrile with stable vitals. Labs showing a mild leukocytosis of 11.71 and creatinine 1.62 (baseline). We discussed acute stone management in the setting of an obstructing stone and concern for UTI. Discussed recommendation for ureteral stent placement. Ureteral stents were discussed as well as postoperative issues and pain management. She is aware second procedure will be needed for stone treatment. Risks and benefits were discussed. Expected clinical course reviewed. All questions were answered. Will plan to proceed to the OR today for cystoscopy, left retrograde pyelogram, left ureteral stent placement with Dr. Stewart. Risk and benefits to be reviewed with patient by Dr. Stewart. Keep NPO. Continue antibiotics. Urology will follow. Supervising Physician Co-Signing Physician Notes Discussed patient with LEDA. Agree with plan. Plan for cystoscopy with left ureteral stent placement. Consent obtained, patient marked. History of Present Illness Attending Physician: Michael Mathis MD History of Present Illness 79-year-old female who presented to the ED for LLQ abdominal pain with associated nausea and vomiting. ED evaluation revealed a leukocytosis of 11.72 creatinine 1.62 (baseline). She was afebrile and hemodynamically stable. UA concerning for infection with positive bacteria and nitrite. CTAP demonstrated an obstructing 2 mm left ureteral stone with hydronephrosis. She is admitted to medicine service. Has been started on ceftriaxone. Patient was seen at bedside today. She is awake and resting in bed on arrival. No acute distress. Has been NPO. Denied prior history of stones. Allergies Allergy/AdvReac Type Severity Reaction Status Date / Time amoxicillin Allergy Intermediate Hives Verified 10/21/24 10:50 fentanyl Allergy Intermediate extreme Verified 10/21/24 10:50 confusion/hallucination Penicillins Allergy Mild RASH TO Verified 10/21/24 10:50 AMOXIL, NO RESP PROBLEMS Home Medications Medication Instructions Recorded Confirmed Type cholecalciferol (vitamin D3) 25 50 mcg (2 x 25 mcg (1,000 unit)) 09/02/20 10/20/24 Rx mcg (1,000 unit) tablet (Vitamin PO QAM #90 tabs D3) aspirin 81 mg tablet,delayed 81 mg PO DAILY #90 tabs 04/06/21 10/20/24 Rx release albuterol sulfate 90 mcg/actuation 2 puff inhalation Q6H PRN Wheezing 09/14/21 10/20/24 History aerosol inhaler sertraline 100 mg tablet 100 mg PO HS #30 tabs 12/01/21 10/20/24 Rx cranberry 500 mg capsule 500 mg PO BID 10/23/22 10/20/24 History nystatin 100,000 unit/gram topical 1 applic topical BID PRN 05/02/23 10/20/24 Rx powder (Nystop) irritation #60 grams amlodipine 10 mg tablet 10 mg PO DAILY #90 tabs 12/25/23 10/20/24 Rx foam bandage 6" X 6" (Optifoam) #10 ea 01/02/24 09/28/24 Rx levothyroxine 50 mcg tablet 50 mcg PO DAILY #90 tabs 01/31/24 10/20/24 Rx carvedilol 12.5 mg tablet (Coreg) 12.5 mg PO BID #60 tabs 05/12/24 10/20/24 Rx gabapentin 300 mg capsule 300 mg PO BID 07/20/24 10/20/24 History lamotrigine 100 mg tablet 100 mg PO DAILY 07/20/24 10/20/24 History mupirocin 2 % topical ointment 1 applic topical BID PRN rash #22 07/21/24 10/20/24 Rx grams hydralazine 50 mg tablet 50 mg PO TID #90 tabs 09/28/24 10/20/24 Rx triamcinolone acetonide 0.05 % 1 applic topical BID PRN rash #430 09/28/24 10/20/24 Rx topical ointment grams hydroxyzine HCl 25 mg tablet 25 mg PO .COMPLEX PRN anxiety #60 10/12/24 10/20/24 Rx tabs Patient History Medical History Anxiety History of urinary incontinence Hypercholesteremia History of intracerebral hemorrhage without residual deficit (11/2020) no residual effects Hypertension CKD (chronic kidney disease), stage IV f/u [place] nephrology Lightheadedness occasional "sometimes dependent on anxiety level" Osteoarthritis Irregular heart beats hx; no longer needs to follows with Dr. Orozco Wheezing intermittent---reason for inhaler Morbid obesity Right carotid bruit Depression Surgical History Status post reverse arthroplasty of right shoulder (2021) History of right knee joint replacement History of dilatation and curettage History of bilateral tubal ligation History of total left knee replacement (TKR) History of cholecystectomy History of colonoscopy (2019) History of esophagogastroduodenoscopy (EGD) History of tooth extraction Family History Mother , age 82 of complications of diabetes Heart disease Stroke Family history of diabetes mellitus Grandmother (Maternal) Family history of diabetes mellitus Father , age 80 of liver issues Liver disease Other No family history of adverse response to anesthesia Social History Smoking Status: Never smoker Second Hand Exposure: No; Do You Dip or Chew Tobacco: No; Hx Alcohol Use: No Hx Substance Use: No Preferred Language: Khmer Communication Ability: Effective Director Human Services Required: No Beliefs That Will Affect Care: None marital status: Current Living Situation: Spouse current occupational status: retired 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 Feels Safe at Home: Yes Safety Concerns: Feels Safe At This Time Seatbelt Use: always Assistive Devices: Glasses, Walker and Wheelchair Review of Systems Review of Systems: All systems reviewed & are unremarkable except as noted in HPI & below Physical Exam Constitutional: no acute distress Respiratory: no respiratory distress and no labored breathing Skin: No visible rashes or lesions to exposed skin areas Neurologic: awake Psychiatric: A+Ox3, euthymic affect Results & Data Vital Signs (Past 12 Hours) Vital Signs Temp Pulse Pulse Resp BP BP Pulse Ox 10/21/24 08:34 90 10/21/24 07:55 10/21/24 07:39 36.5 C 89 18 117/71 96 10/21/24 04:05 105 H 10/21/24 03:54 10/21/24 03:35 95 10/21/24 03:30 07/23/25 03:30 37.7 C H 104 H 18 154/72 H 90 10/21/24 02:55 36.7 C 106 H 23 126/84 97 10/21/24 02:00 36.7 C 95 H 20 149/90 H 96 10/21/24 01:58 111 H 10/21/24 00:00 36.9 C 100 H 22 179/94 H 92 10/20/24 22:26 96 H 22 96 10/20/24 22:26 92 H 24 211/94 H 95 10/20/24 22:04 89 10/20/24 22:02 36.9 C 97 H 20 214/101 H 96 Pulse Ox O2 Del Method O2 Del Method O2 Flow Rate O2 Flow Rate 10/21/24 08:34 10/21/24 07:55 Nasal Cannula 2 10/21/24 07:39 Room Air 10/21/24 04:05 10/21/24 03:54 Nasal Cannula 2 10/21/24 03:35 Nasal Cannula 2 10/21/24 03:30 95 Nasal Cannula 2 10/21/24 03:30 Room Air 10/21/24 02:55 Nasal Cannula 2 10/21/24 02:00 Room Air 10/21/24 01:58 10/21/24 00:00 Room Air 10/20/24 22:26 Room Air 10/20/24 22:26 Room Air 10/20/24 22:04 10/20/24 22:02 Room Air PG Care Time/CCT Total # of Minutes Spent Total Time Spent with Patient: Total time spent is greater than 50% in coordination of care (as documented) at patient's floor/unit and/or counseling patient: Coding Level of Care Code 05323 INT INP/OBS CARE 2MIN Diagnoses Acute UTI N39.0 Ureterolithiasis N20.1 Renal colic on left side N23
--- NOTE | 2024-10-21 11:29 | Anesthesiology Consultation ---
Date of Service October 21, 2024 Assessment & Plan Chart Review Chart Review: Acceptable Risk for Surgery and Patient NOT seen in Pre Admission Testing Consults Requested none ASA ASA4 Proposed Anesthesia Anesthesia Type: MAC History Surgery Operation Date: 10/21/24 10:35 Proposed Procedures p Cystoscopy, Retrograde Pyelogram, Left Stent Placement - Agustín Stewart MD Height/Weight Height: 5 ft 1 in Weight: 96.4 kg Allergies Allergy/AdvReac Type Severity Reaction Status Date / Time amoxicillin Allergy Intermediate Hives Verified 10/21/24 10:50 fentanyl Allergy Intermediate extreme Verified 10/21/24 10:50 confusion/hallucination Penicillins Allergy Mild RASH TO Verified 10/21/24 10:50 AMOXIL, NO RESP PROBLEMS Medications Home Medications Medication Instructions Recorded Confirmed Last Taken cholecalciferol (vitamin D3) 25 50 mcg (2 x 25 mcg (1,000 unit)) 09/02/20 10/20/24 10/20/24 mcg (1,000 unit) tablet (Vitamin PO QAM #90 tabs D3) aspirin 81 mg tablet,delayed 81 mg PO DAILY #90 tabs 04/06/21 10/20/24 10/20/24 release albuterol sulfate 90 mcg/actuation 2 puff inhalation Q6H PRN Wheezing 09/14/21 10/20/24 Unknown aerosol inhaler sertraline 100 mg tablet 100 mg PO HS #30 tabs 12/01/21 10/20/24 10/19/24 cranberry 500 mg capsule 500 mg PO BID 10/23/22 10/20/24 10/20/24 08:00 nystatin 100,000 unit/gram topical 1 applic topical BID PRN 05/02/23 10/20/24 07/28/24 powder (Nystop) irritation #60 grams amlodipine 10 mg tablet 10 mg PO DAILY #90 tabs 12/25/23 10/20/24 10/20/24 foam bandage 6" X 6" (Optifoam) #10 ea 01/02/24 09/28/24 Unknown levothyroxine 50 mcg tablet 50 mcg PO DAILY #90 tabs 01/31/24 10/20/24 10/20/24 carvedilol 12.5 mg tablet (Coreg) 12.5 mg PO BID #60 tabs 05/12/24 10/20/24 10/20/24 08:00 gabapentin 300 mg capsule 300 mg PO BID 07/20/24 10/20/24 10/20/24 08:00 lamotrigine 100 mg tablet 100 mg PO DAILY 07/20/24 10/20/24 10/20/24 mupirocin 2 % topical ointment 1 applic topical BID PRN rash #22 07/21/24 10/20/24 07/28/24 grams hydralazine 50 mg tablet 50 mg PO TID #90 tabs 09/28/24 10/20/24 10/20/24 14:00 triamcinolone acetonide 0.05 % 1 applic topical BID PRN rash #430 09/28/24 10/20/24 Unknown topical ointment grams hydroxyzine HCl 25 mg tablet 25 mg PO .COMPLEX PRN anxiety #60 10/12/24 10/20/24 Unknown tabs Active Medications Generic Name Dose Route Start Last Admin Trade Name Freq PRN Reason Stop Dose Admin Amlodipine Besylate 10 mg 10/21/24 09:00 10/21/24 08:21 Amlodipine Besylate 5 Mg Tab PO 11/20/24 08:59 10 mg DAILY MONSE Administration Carvedilol 12.5 mg 10/21/24 09:00 10/21/24 08:21 Carvedilol 12.5 Mg Tab PO 11/20/24 08:59 12.5 mg BID MONSE Administration Gabapentin 300 mg 10/21/24 09:00 10/21/24 08:21 Gabapentin 300 Mg Cap PO 11/20/24 08:59 300 mg BID MONSE Administration Hydralazine HCl 50 mg 10/21/24 09:00 10/21/24 08:21 Hydralazine Tab 50 Mg Tab PO 11/20/24 08:59 50 mg TID MONSE Administration Hydromorphone HCl 0.5 mg 10/21/24 02:24 10/21/24 06:00 Hydromorphone Inj 0.5 Mg/0.5 Ml Syr IV 11/04/24 02:23 0.5 mg Q3H PRN Administration Pain (6,7,8,9,10) Lactated Ringer's 1,000 mls @ 125 mls/hr 10/21/24 02:30 10/21/24 03:29 Lr IV 10/24/24 02:29 125 mls/hr .Q8H MONSE Infusion Lamotrigine 100 mg 10/21/24 09:00 10/21/24 08:21 Lamotrigine 100 Mg Tab PO 11/20/24 08:59 100 mg DAILY MONSE Administration Protocol Levothyroxine Sodium 50 mcg 10/21/24 06:30 10/21/24 06:05 Levothyroxine Sodium 50 Mcg Tablet PO 11/20/24 06:29 Not Given DAILYBB MONSE NPO Date Last Intake of Fluids: 10/20/24 Time Last Intake of Fluids: 21:00 Date Last Intake of Solids: 10/20/24 Time Last Intake of Solids: 21:00 Past Medical History Medical History Anxiety History of urinary incontinence Hypercholesteremia History of intracerebral hemorrhage without residual deficit (11/2020) no residual effects Hypertension CKD (chronic kidney disease), stage IV f/u [place] nephrology Lightheadedness occasional "sometimes dependent on anxiety level" Osteoarthritis Irregular heart beats hx; no longer needs to follows with Dr. Orozco Wheezing intermittent---reason for inhaler Morbid obesity Right carotid bruit Depression Exercise / Class Metabolic Activity III < 4 Walking/Shop/Light housework Past Family History Family History Mother , age 82 of complications of diabetes Heart disease Stroke Family history of diabetes mellitus Grandmother (Maternal) Family history of diabetes mellitus Father , age 80 of liver issues Liver disease Other No family history of adverse response to anesthesia Past Surgical History Surgical History Status post reverse arthroplasty of right shoulder (2021) History of right knee joint replacement History of dilatation and curettage History of bilateral tubal ligation History of total left knee replacement (TKR) History of cholecystectomy History of colonoscopy (2019) History of esophagogastroduodenoscopy (EGD) History of tooth extraction Past Anesthesia History No Hx of Anesthesia Complications and No Family Hx of Anesthesia Complications History of PONV No Hx of PONV and No Hx of Motion Sickness Social History Smoking Status: Never smoker Do You Dip or Chew Tobacco: No Hx Alcohol Use: No Hx Substance Use: No substance use type: does not use Physical Exam Vital Signs Last Vital Signs Temp 36.6 C 10/21/24 10:52 Pulse 80 10/21/24 10:52 Resp 22 10/21/24 10:52 BP 112/62 10/21/24 10:52 Pulse Ox 97 10/21/24 10:52 O2 Del Method Nasal Cannula 10/21/24 10:52 O2 Flow Rate 2 10/21/24 10:52 Testing Laboratory Results 10/20/24 22:00 10/20/24 22:00 Urine Color Yellow 10/20/24 22:47 Urine Appearance Clear (Clear) 10/20/24 22:47 Urine pH 5.0 (4.5-7.5) 10/20/24 22:47 Ur Specific [place] 1.020 (1.000-1.030) 10/20/24 22:47 Urine Protein 3+ (Negative) H 10/20/24 22:47 Urine Glucose (UA) Negative (Negative) 10/20/24 22:47 Urine Ketones Trace (Negative) H 10/20/24 22:47 Urine Nitrite Positive (Negative) A 10/20/24 22:47 Ur Leukocyte Esterase 1+ (Negative) H 10/20/24 22:47 Urine WBC (Auto) 21-50 /hpf (0-5) H 10/20/24 22:47 Urine RBC (Auto) 0-2 /hpf (0-2) 10/20/24 22:47 U Hyaline Cast (Auto) 0-2 /lpf (0-2) 10/20/24 22:47 U Epithel Cells (Auto) 0-2 /hpf (0-2) 10/20/24 22:47 Urine Bacteria (Auto) 4+ (None Seen) H 10/20/24 22:47 Electrocardiogram Date: 11/20/21 Findings: + NSR @ (@ 68 w/ 1st degree AVB) Other Testing 11/16/2018-Carotid U/S - 60-70% MALENA + RECA
[2024-10-21] MEDS ORDERED: PROMETHAZINE HCL 6.25 MG in SODIUM CHLORIDE 0.9% 50 ML IV PRN (11:36)
[2024-10-21] MEDS ORDERED: ATROPINE SULFATE 0.1 MG/ML 10ML SYR IV PRN (11:36)
[2024-10-21] MEDS ORDERED: NALOXONE HCL 0.4 MG/1 ML VIAL/CARP IV PRN (11:36)
[2024-10-21] MEDS ORDERED: FLUMAZENIL 0.1 MG/1 ML 10 ML VIAL IV PRN (11:36)
[2024-10-21] MEDS ORDERED: LIDOCAINE 2% 2 ML VIAL/AMP(20MG/ML) INFIL ONE (12:20)
[2024-10-21] MEDS ORDERED: PROPOFOL IV EMULSION 10 MG/ML 20 ML VIAL IV ONE (12:20)
[2024-10-21] MEDS ORDERED: KETAMINE HCL 10MG/ML SYR ONE (12:48)
[2024-10-21] MEDS ORDERED: DIATRIZOATE MEGLUMINE 30% 100ML VIAL INSTIL PRN (12:58)
--- NOTE | 2024-10-21 13:01 | Operative Report ---
[facility] Post Operative Report Pre & Post Diagnosis Left ureteral calculus Operation Date: 10/21/24 10:35 <No data on this case meets the specified criteria> Left ureteral calculus I identified the patient and participated in the time-out.: Yes Procedure Cystoscopy, left retrograde pyelogram with radiographic interpretation, left ureteral stent placement Operation Date: 10/21/24 10:35 <No data on this case meets the specified criteria> Surgeon Agustín Stewart MD Dump Grader None Estimated Blood Loss 0 Findings See Below Moderate left hydro fairly obstructed kidney as there was some purulent drainage once the wire was placed. Stent in appropriate position. Specimens None Drains 6 [place] by 24 cm left ureteral stent Anesthesia Type General Complications none Indications 79-year-old female with a distal left ureteral calculus and concern for infection Description of Procedure After informed consent was obtained, the patient was transported operative suite. MAC anesthesia was induced. The patient was placed in dorsal lithotomy position prepped and draped in a sterile fashion. They received preoperative ceftriaxone for antibiotic prophylaxis. An appropriate surgical timeout was performed. A 22 [place] rigid scope was inserted per urethra into the bladder. Stout cystoscopy revealed no stones or lesions. I turned my attention the left ureteral orifice and intubated this with a 5 [place] open-ended catheter. A left retrograde pyelogram was shot which showed moderate left hydro. A sensor wire was advanced into the kidney and confirmed fluoroscopically. There was mild output of purulent urine. A 6 [place] by 24 cm left ureteral stent was deployed with a good proximal coil in the renal pelvis and a good distal coil noted in the bladder. These were confirmed fluoroscopically and under direct visualization, respectively. The bladder was emptied and the scope was removed. This concluded the end of the case. All counts were correct at the end of the case. I was present, scrubbed, and actively participated for the entirety of the procedure. I attest to the content of the Intraoperative Record and any orders documented therein. Any exceptions are noted below.
--- NOTE | 2024-10-21 13:19 | Anesthesiology Progress Note ---
Date of Service October 21, 2024 Anesthesia Post Procedure Vital Signs Vital Signs: Temp Pulse Pulse Resp BP BP Pulse Ox 10/21/24 13:10 36.6 C 73 16 129/57 L 98 10/21/24 10:52 36.6 C 80 22 112/62 97 10/21/24 10:38 36.6 C 80 17 112/62 93 10/21/24 08:34 90 10/21/24 07:55 10/21/24 07:39 36.5 C 89 18 117/71 96 10/21/24 04:05 105 H 10/21/24 03:54 10/21/24 03:35 95 10/21/24 03:30 10/21/24 03:30 37.7 C H 104 H 18 154/72 H 90 10/21/24 02:55 36.7 C 106 H 23 126/84 97 10/21/24 02:00 36.7 C 95 H 20 149/90 H 96 10/21/24 01:58 111 H 10/21/24 00:00 36.9 C 100 H 22 179/94 H 92 10/20/24 22:26 96 H 22 96 10/20/24 22:26 92 H 24 211/94 H 95 10/20/24 22:04 89 10/20/24 22:02 36.9 C 97 H 20 214/101 H 96 Pulse Ox O2 Del Method O2 Del Method O2 Flow Rate O2 Flow Rate 10/21/24 13:10 Oxymask 4 10/21/24 10:52 Nasal Cannula 2 10/21/24 10:38 Room Air 10/21/24 08:34 10/21/24 07:55 Nasal Cannula 2 10/21/24 07:39 Room Air 10/21/24 04:05 10/21/24 03:54 Nasal Cannula 2 10/21/24 03:35 Nasal Cannula 2 10/21/24 03:30 95 Nasal Cannula 2 10/21/24 03:30 Room Air 10/21/24 02:55 Nasal Cannula 2 10/21/24 02:00 Room Air 10/21/24 01:58 10/21/24 00:00 Room Air 10/20/24 22:26 Room Air 10/20/24 22:26 Room Air 10/20/24 22:04 10/20/24 22:02 Room Air Pain Intensity Left Abdomen: Pain Intensity: 5 Transfer of Care Handoff Completed per policy Notes Mental Status: alert / awake / arousable Patient Amnestic to Procedure: Yes Nausea / Vomiting: adequately controlled Pain: adequately controlled Airway Patency, RR, SpO2: stable & adequate BP & HR: stable & adequate Hydration State: stable & adequate Anesthetic Complications: no major complications apparent
--- NOTE | 2024-10-21 14:14 | Fluoroscopy Report ---
FL retrograde includes kub CLINICAL HISTORY: LEFT SIDED CYSTO COMPARISON STUDY: None FLUOROSCOPY TIME: 10 seconds FLUOROSCOPY IMAGES: 3 EXPOSURE DOSE: 3.5 mGy FINDINGS: Fluoroscopy was provided for urologic procedure. IMPRESSION: Intraoperative fluoroscopy. ACT 112: Negative or not required by law. Electronically signed by: Trung Jain M.D. 10/21/2024 2:12 PM
[2024-10-21] MEDS: MELATONIN 3 MG TAB PO PRN (20:12)
[2024-10-21] MEDS: SERTRALINE HCL 100 MG TABLET PO SCH (20:12)
[2024-10-22] MEDS: ASPIRIN 81 MG CHEW PO SCH (07:56)
--- NOTE | 2024-10-22 08:55 | Hospitalist Progress Note ---
Date of Service October 22, 2024 Assessment & Plan (1) UTI (urinary tract infection): (2) Urolithiasis: (3) CKD (chronic kidney disease): Plan 79-year-old female PMHx hypothyroidism, MAXIMILIANO, CKD, generalized weakness, MDD, GERD, and HTN presenting for LLQ abdominal pain with associated N/V/D starting the day of arrival. ED evaluation reveals CBC with leukocytosis 11.72, stable H&H; CMP creatinine 1.62, glucose 138; lactate 2.4, pending repeat s/p fluids; UA positive for infection; CTAP L kidney with mild hydronephrosis and hydroureter to the obstructing calculus of 2 mm involving L lower ureter, 12 mm proximal to the vesicular ureteral junction, few hyperdense foci noted within th e calyx of bilateral kidneys, fat-containing supraumbilical hernia.; Provided with 1L NSS, Zofran 4 mg IV, morphine 4 mg IV, famotidine 20 mg IV, ceftriaxone 2 g IV, and acetaminophen 1 g IV in ED. #UTI/urolithiasis/CKD Patient with obstructing calculus 2mm in the left lower ureter resulting in mild hydronephrosis and hydroureter. UA suggestive of infection. Prior cultures with puga-sensitive Klebsiella and puga-sensitive E. coli. - CBC leukocytosis 11.72; CMP creatinine 1.62 (at baseline); lactate 2.4, pending repeat -- CBC, BMP am - UA positive for infection; pending culture - CTAP L kidney with minor hydronephrosis and hydroureter to the obstructing 2 mm calculus involving L lower ureter, 12 mm proximal to vesicular ureteral junction Assessment/Plan Supportive care Strain urine -IVF Empirical antibiotics. Follow urine cultures -Pain control and anti-emetics as needed Status post left stent 10/21. 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 Please excuse any grammatical errors that may be secondary to use of this software. Admission and Anticipated Discharge Date Admission Date: October 21, 2024 Supervising Physician Co-Signing Physician Notes Discussed patient with LEDA. Agree with plan. Plan for cystoscopy with left ureteral stent placement. Consent obtained, patient marked. Subjective Doing very well in good spirits. Already bedside. No further left-sided/flank pain. Minimal hematuria that seems to slowly be improving. No other symptoms. No abdominal pain nausea vomiting fevers chills or any other symptoms. No longer tender left abdomen on examination Remains on oxygen RN planning to wean off. No cardiopulmonary symptoms cough or any other symptoms. We discussed importance of mobilizing Labs for today still pending Reached out to urology via secure chat to confirm no objection from their standpoint to discharge home Pending urine culture Review of Systems Review of Systems: All systems reviewed & are unremarkable except as noted in HPI & below Physical Exam Physical Exam: General: No acute distress Skin: Warm and dry Head: Normocephalic, atraumatic Eyes: PERRL, conjunctivae clear, sclera non-icteric ENT: External ear and ear canal without swelling; nose atraumatic; good dentition, tongue normal appearance, pharynx normal Neck: Supple, no LAD Cardio: s1 s2+ Resp: No respiratory distress, Lungs CTA in all lobes bilaterally, no wheezes, rales, or rhonchi Abdomen: Soft, symmetric,Nontender MSK: No deformities; pulses palpable and equal; trace pitting edema BLE Neuro: Awake, alert; Sensation intact bilaterally; CN grossly intact Psych:Appropriate mood and affect; good judgement and insight. Results & Data Results & Data Vital Signs (Past 12 Hours) Vital Signs Temp Pulse Pulse Resp BP Pulse Ox O2 Del Method 10/22/24 07:32 Nasal Cannula 10/22/24 07:31 66 10/22/24 07:23 36.9 C 79 20 145/66 H 94 Nasal Cannula 10/22/24 04:01 36.8 C 76 18 138/66 92 Nasal Cannula 10/21/24 23:10 36.9 C 83 18 129/61 92 Nasal Cannula 10/21/24 22:28 87 O2 Flow Rate 07/24/25 07:32 2 10/22/24 07:31 10/22/24 07:23 2 10/22/24 04:01 3 10/21/24 23:10 3.0 10/21/24 22:28 Laboratory Results Abnormal Labs 10/20/24 10/20/24 10/21/24 22:00 22:47 00:59 WBC 11.71 H RBC 4.03 L RDW Std Deviation 47.4 H Neut # (Auto) 9.84 H Lymph # (Auto) 1.06 L Creatinine 1.62 H Glucose 138 H Lactate 2.4 H* Urine Protein 3+ H Urine Ketones Trace H Urine Nitrite Positive A Ur Leukocyte Esterase 1+ H Urine WBC (Auto) 21-50 H Urine Bacteria (Auto) 4+ H Diagnostic Findings Abdomen/Pelvis CT 10/20/24 22:07 EXAM: CT abd pelvis IV con only CLINICAL HISTORY: LLQ pain TECHNIQUE: Contiguous axial images were obtained from the level of the diaphragm to the pubic symphysis with intravenous contrast. Coronal and sagittal reconstructions were likewise performed and indicated to increase the sensitivity for detecting clinically relevant pathology. If IV contrast material had not been administered, the likelihood of detecting abnormalities relevant to the patient's condition would have been substantially decreased. CT scan was performed according to ALARA (as low as reasonable achievable). COMPARISON: Oct 15:31:34 [employer] FINDINGS: The visualized lung bases are clear. Sliding hiatus hernia noted. The liver is normal in size and attenuation. No focal liver lesions are seen. There is no intra or extrahepatic biliary ductal dilatation. Hepatic vasculature is patent. The gallbladder is removed. The spleen, pancreas, and adrenal glands are unremarkable. The kidneys are normal in size and attenuation. There is no hydronephrosis or perinephric fat stranding. About 44 x 22 mm sized cortical cysts noted involving right kidney - Bosniak type I . Left kidney shows mild hydronephrosis and hydroureter up to an obstructing calculus of size 2 mm involving left lower ureter, 12 mm proximal to vesicoureteric junction. Few hyperdense foci are noted within the calyx of bilateral kidneys- possibility of excreted contrast /calculi ( kindly correlate with non contrast study). The ureters are normal in caliber and no ureteral calculi are seen. The bladder is normal in contour. Pelvic viscera are unremarkable. No focal or diffuse bowel wall thickening or evidence of bowel obstruction is identified. The appendix is visualized in the right lower quadrant and appears within normal limits. Abdominal and pelvic vasculature is patent. No adenopathy or fluid collections are seen. No aggressive appearing osseous lesions are identified. Fat containing supraumbilical hernia. IMPRESSION: 1. Left kidney shows mild hydronephrosis and hydroureter up to an obstructing calculus of size 2 mm involving left lower ureter, 12 mm proximal to vesicoureteric junction.-new finding. 2. Few hyperdense foci are noted within the calyx of bilateral kidneys- possibility of excreted contrast /calculi ( kindly correlate with non contrast study). 3. Fat containing supraumbilical hernia.-stable. Electronically signed by Edwar Moore 10-21-2024 01:29 AM Retrograde Pyelogram 10/21/24 00:00 FL retrograde includes kub CLINICAL HISTORY: LEFT SIDED CYSTO COMPARISON STUDY: None FLUOROSCOPY TIME: 10 seconds FLUOROSCOPY IMAGES: 3 EXPOSURE DOSE: 3.5 mGy FINDINGS: Fluoroscopy was provided for urologic procedure. IMPRESSION: Intraoperative fluoroscopy. ACT 112: Negative or not required by law. Electronically signed by: Trung Jain M.D. 10/21/2024 2:12 PM PG Care Time/CCT Total # of Minutes Spent Total Time Spent with Patient: Total time spent is greater than 50% in coordination of care (as documented) at patient's floor/unit and/or counseling patient: Coding Level of Care Code 61177 SUB INP/OBS CARE 2/35MIN Diagnoses UTI (urinary tract infection) N39.0 Urolithiasis N20.9 CKD (chronic kidney disease) N18.9
--- NOTE | 2024-10-22 09:36 | Urology Progress Note ---
Date of Service October 22, 2024 Assessment & Plan (1) Acute UTI: (2) Ureterolithiasis: (3) Renal colic on left side: (4) Urinary incontinence: Plan 79-year-old female with an obstructing left ureteral stone and concern for UTI. POD #1 s/p cystoscopy and left ureteral stent placement Labs reviewed-creatinine 1.62, WBCs 11.71, glucose 138, hemoglobin 12.7 CTAP showed a 2 mm obstructing left ureteral stone. Vital signs stable, currently on 2 L oxygen Tolerating the ureteral stent with no pain UA was suspicious for an infection upon arrival Urine culture currently pending, currently on ceftriaxone Continue supportive care and monitoring. Continue antibiotics as prescribed trend according to culture data. No plan for further urologic intervention during this admission. Will arrange outpatient follow-up with our service for definitive stone management after the infection has been treated. Urology will sign out, please recontact our service for any questions or concerns Case discussed with Dr. Avery Admission and Anticipated Discharge Date Admission Date: October 21, 2024 Subjective Resting comfortably in bed NAD Denies dysuria, gross hematuria, fevers, chills, nausea, and vomiting. Denies any stent discomfort or pain Denies urgency, frequency Review of Systems Constitutional: as per Subjective / HPI Genitourinary: as per Subjective / HPI Physical Exam Constitutional: well developed and well nourished; no acute distress Respiratory: normal respiratory effort and able to speak in complete sentences Musculoskeletal: Extremities: + limited ROM of extremities Psychiatric: Orientation: alert and oriented x 3 Results & Data Vital Signs (Past 12 Hours) Vital Signs Temp Pulse Pulse Resp BP Pulse Ox O2 Del Method 10/22/24 07:32 Nasal Cannula 10/22/24 07:31 66 10/22/24 07:23 36.9 C 79 20 145/66 H 94 Nasal Cannula 10/22/24 04:01 36.8 C 76 18 138/66 92 Nasal Cannula 10/21/24 23:10 36.9 C 83 18 129/61 92 Nasal Cannula 10/21/24 22:28 87 O2 Flow Rate 10/22/24 07:32 2 10/22/24 07:31 10/22/24 07:23 2 10/22/24 04:01 3 10/21/24 23:10 3.0 10/21/24 22:28 PG Care Time/CCT Total # of Minutes Spent Total Time Spent with Patient: Total time spent is greater than 50% in coordination of care (as documented) at patient's floor/unit and/or counseling patient: Coding Level of Care Code 94636 SUB INP/OBS CARE 2/35MIN Diagnoses Acute UTI N39.0 Ureterolithiasis N20.1 Renal colic on left side N23 Urinary incontinence R32
[2024-10-22] MEDS: cefTRIAXone SODIUM 1,000 MG/50 ML BAG IV STA (10:30)
[2024-10-22] MEDS ORDERED: Nursing to Pharmacy Communication SCH (10:30)
[2024-10-22 21:19] LABS: Base Excess VBG -1.1 mEq/L; HCO3 VBG 26 mmol/L; Oxygen Saturation VBG 94.5 %; PCO2 VBG 56 mmHg (38-50); PO2 VBG 70 mmHg; pH VBG 7.28 (7.36-7.41)
[2024-10-22] MEDS: ALBUT/IPRATROP 3MG/0.5MG NEB 3 ML VIAL NEB STA (21:26)
[2024-10-22 21:42] LABS: Hematocrit (blood only) 32.5 % (37.0-47.0); Hemoglobin 10.5 g/dl (12.0-16.0); Immature Granulocytes # (auto) 0.65 K/uL (0.01-0.20); Immature Granulocytes % (auto) 3.6 %; Mean Corpuscular Hemoglobin 32.3 pg (25.0-34.0); Mean Corpuscular Volume 100.0 fL (80.0-100.0); Platelet Count 134 K/uL (130-400); RDW Standard Deviation 52.7 fL (36.4-46.3); Red Blood Count 3.25 M/uL (4.20-5.40); White Blood Count 17.87 K/ul (4.8-10.8)
--- NOTE | 2024-10-22 21:45 | XRay Report ---
Exam(s): XR CXR 1 VIEW EXAM: XR Chest, 1 View CLINICAL HISTORY: Reason for exam: Chest pain, SOB. TECHNIQUE: Frontal view of the chest. COMPARISON: 11/21/2021 FINDINGS: Lungs: Patchy airspace opacities in the lungs bilaterally right greater than left with septal thickening. Pleural space: No pleural effusion. No pneumothorax. Heart: Unremarkable. No cardiomegaly. Bones/joints: Right shoulder prosthesis. IMPRESSION: Patchy airspace opacities in the lungs bilaterally right greater than left with septal thickening. Differential of pulmonary edema versus multifocal infection. Electronically signed by: Christiano Avina MD 10/22/24 21:43 PM
[2024-10-22 22:00] LABS: Alanine Aminotransferase 12.0 U/L (7-52); Albumin Globulin Ratio 1.1 (0.9-2); Alkaline Phosphatase 57.0 U/L (34-104); Anion Gap 7.0 (3-11); Bilirubin,Total 0.4 mg/dl (0.2-1.0); Blood Urea Nitrogen 38.0 mg/dl (6-23); Calcium 8.5 mg/dl (8.6-10.3); Carbon Dioxide 25.0 mmol/L (21-32); Chloride 105.0 mmol/L (98-107); Creatinine Clr Calc Pharmacy 20.2 ml/min; Globulin 3.2 gm/dl (2.5-4.0); Glucose 118.0 mg/dl (70-99(Fasting)); Potassium 4.3 mmol/L (3.5-5.1); Sodium 137.0 mmol/L (136-145); Total Protein 6.6 gm/dl (6.0-8.3)
[2024-10-22] MEDS: MAGNESIUM SULFATE / D5W 1 GM/100 ML BAG IV SCH (22:21)
[2024-10-22] MEDS: FUROSEMIDE INJ 20 MG/2 ML VIAL IV ONE (22:32)
--- NOTE | 2024-10-22 22:48 | Communication Note ---
Date of Service: October 22, 2024 Nurse sent me a TT around 21:00 that pt was getting incontinence care when she complained of SOB and chest pressure, oxygen requirement increased from 2L NC to 4L NC. Ordered labs and imaging. Went to bedside to see pt. Pt was noted to have increased work of breathing and almost continuous dry cough with any attempt of a deep breath. Lungs wheezy throughout with some rhonchi in lower lung min, right sided more than left. HR sinus 100s with no acute ST changes. CXR done which shows lower field opacification and some congestion. Called RT to trial d uoneb. Pt was unable to take deep breaths for this treatment, transitioned to bipap and given 2gm mag IV, 60 mg solumedrol IV, 20 mg IV lasix. VBG does show some respiratory acidosis. Cr has increased in the interval. Advised nurse to hold opioids for tonight given resp distress. Reassessed after at least an hour on bipap around 23:30. VBG with some improvement. Lactate wnl. Continue bipap overnight. She continues to be sinus 90-100s at this time. Trop mildly elevated 45 but likely demand, will do repeat with am labs. Pt herself reports some modest improvement, no chest pain, no longer continuously coughing. Added Solumedrol 40 mg IV qpm for 5 days total treatment. Duoneb q6h for SOB/wheezing. Assessed again around 01:00 as pt once again coughing continuously and breathing has worsened although vitals do look okay. VBG repeat shows further improvement. Given sudden respiratory distress and sinus tachycardia, did CTA chest for evaluation for PE. Went to bedside to discuss with patient. She is okay with CTA even though kidney function is elevated. She denies coughing or choking with meals during the day. Her code status at this time is conditional DNI but otherwise does want everything done. I further clarified her wishes with her in the event her condition deteriorates; pt asks me to call her daughter Cami to come in so she can discuss with and see her family. I called primary contact in the chart, Cami (daughter) and gave updates on sudden change in respiratory status. Daughter did state she has noticed her mom seems to choke or cough with some meals and is also concerned about aspiration for her. She also states pt has prior hx of asthma but rarely uses rescue inhaler. Family arrived shortly after. I discussed CTA to evaluate for clot with them as well and they also agree to doing scan so we can further evaluate what may be going on and rule out PE. I did also discuss with patient and family the code status. Family and pt in favor at this point of intubation (and all priorly acceptable measures) if needed for further decline. Recommend re-evaluation of code status with patient and family if condition would continue to deteriorate and such effort may seem futile, as family emphasizes only wanting to trial intubation (if needed) if pt were to have a fair chance of coming off of it based on the underlying process. Zamora placed given issues with purewick and for better tracking of ins and outs given diuresis. CTA done, negative for PE, showing multifocal consolidations, mild pleural effusions with basal subsegmental collapse of lower lobs. Went to bedside once again around 04:00 to update family. At that visit, pt seems to be finally breathing more comfortably, vitals once again stable. Review of labs from overnight show elevated procal 17.8. Pt was on ceftriaxone for UTI source but given overall clinical picture at this point I did extend coverage to zosyn and added azithromycin dose for antiinflammatory process and atypical coverage. Suspect pt may have had aspiration event, and while antibiotics are not inherently needed for such, with markedly elevated procal and no prior CXR this admission for comparison will treat for HAP/CAP. MRSA nares pending. Given marked tightness on initial exam, steriods and scheduled nebs (duoneb and inhaled steroid) are continued pending daytime evaluation. Given use of contrast for CT, continued IVF to try to mitigate further kidney injury, but at low rate 80/h, and would stop if respiratory status declines. On my last evaluation of pt at 10/23 around 04:00, pt appears much more comfortable with more color to her face as well and vitals stable with good oxygenation and bipap tidal volumes. Echo order placed to evaluate for HF. Resident Activity Tracking Resident Involvement: Resident Care Provided Care Provided: Adult [facility]
[2024-10-22 23:18] LABS: Base Excess VBG -1.2 mEq/L; HCO3 VBG 26 mmol/L; Oxygen Saturation VBG 95.4 %; PCO2 VBG 51 mmHg (38-50); PO2 VBG 69 mmHg; pH VBG 7.31 (7.36-7.41)
[2024-10-22] MEDS ORDERED: ALBUT/IPRATROP 3MG/0.5MG NEB 3 ML VIAL NEB PRN (23:38)
[2024-10-23] MEDS: AZITHROMYCIN 500 MG/255 ML BAG IV SCH (01:11)
[2024-10-23 01:18] LABS: Base Excess VBG -1.3 mEq/L; HCO3 VBG 25 mmol/L; Oxygen Saturation VBG 95.2 %; PCO2 VBG 46 mmHg (38-50); PO2 VBG 68 mmHg; pH VBG 7.34 (7.36-7.41)
[2024-10-23] MEDS: OPTIRAY 320 125ml IV ONE (02:31)
[2024-10-23] MEDS: PIPERACILLIN/TAZOBACTAM 4.5 GM/100 ML BAG IV ONE (02:41)
[2024-10-23] MEDS: BUDESONIDE 0.5 MG/2 ML VIAL (PULMICORT) NEB SCH (02:43)
--- NOTE | 2024-10-23 03:24 | CT Scan Report ---
EXAM: CT angio chest PE protocol CLINICAL HISTORY: PE TECHNIQUE: Contiguous axial images were obtained from the neck base through the upper abdomen following intravenous administration of iodinated contrast material. Angiographic images were processed, 3D MIP images were acquired for interpretation. If IV contrast material had not been administered, the likelihood of detecting abnormalities relevant to the patient's condition would have been substantially decreased. Coronal and sagittal 3-D MIPs were likewise performed and indicated to increase the sensitivity of detectin diffuse clinically relevant pathology. CT scan was performed according to ALARA (as low as reasonable achievable). COMPARISON: None. FINDINGS: Multifocal patchy consolidations are noted involving bilateral lung; predominantly right upper and lower lobe. Mild bilateral pleural effusion with basal subsegmental collapse of both lower lobes are seen Adequate contrast bolus without evidence of pulmonary embolism. The central airways are patent. The heart, aorta, and pulmonary arteries are of normal size and configuration. There are coronary artery and aortic atherosclerotic calcifications. No pericardial effusion is identified. The thyroid is unremarkable. No mediastinal, hilar, or axillary lymphadenopathy is noted. No suspicious lytic or sclerotic osseous lesions are identified. IMPRESSION: No evidence of pulmonary embolism Multifocal patchy consolidations are noted involving bilateral lung; predominantly right upper and lower lobe. Mild bilateral pleural effusion with basal subsegmental collapse of both lower lobes are seen Electronically signed by Edwar Moore 10-23-2024 03:24 AM
[2024-10-23 06:00] LABS: Base Excess VBG 1.0 mEq/L; HCO3 VBG 27 mmol/L; Oxygen Saturation VBG 96.0 %; PCO2 VBG 48 mmHg (38-50); PO2 VBG 73 mmHg; pH VBG 7.36 (7.36-7.41)
[2024-10-23 06:03] LABS: Hematocrit (blood only) 33.4 % (37.0-47.0); Hemoglobin 10.6 g/dl (12.0-16.0); Mean Corpuscular Hemoglobin 31.1 pg (25.0-34.0); Mean Corpuscular Volume 97.9 fL (80.0-100.0); Platelet Count 128 K/uL (130-400); RDW Standard Deviation 50.2 fL (36.4-46.3); Red Blood Count 3.41 M/uL (4.20-5.40); White Blood Count 16.70 K/ul (4.8-10.8)
[2024-10-23 06:58] LABS: Alanine Aminotransferase 12.0 U/L (7-52); Albumin Globulin Ratio 1.2 (0.9-2); Alkaline Phosphatase 68.0 U/L (34-104); Anion Gap 7.0 (3-11); Bilirubin,Total 0.6 mg/dl (0.2-1.0); Blood Urea Nitrogen 36.0 mg/dl (6-23); Calcium 8.3 mg/dl (8.6-10.3); Carbon Dioxide 28.0 mmol/L (21-32); Chloride 101.0 mmol/L (98-107); Creatinine Clr Calc Pharmacy 23.8 ml/min; Globulin 2.9 gm/dl (2.5-4.0); Glucose 185.0 mg/dl (70-99(Fasting)); Potassium 4.0 mmol/L (3.5-5.1); Sodium 136.0 mmol/L (136-145); Total Protein 6.4 gm/dl (6.0-8.3)
[2024-10-23] MEDS: ALBUT/IPRATROP 3MG/0.5MG NEB 3 ML VIAL NEB SCH ×2 (07:05→13:53)
[2024-10-23] MEDS: PIPERACILLIN/TAZOBACTAM 4.5 GM/100 ML BAG IV SCH (07:35)
[2024-10-23] MEDS: LACTATED RINGER'S 1,000 ML IV SCH (08:05)
--- NOTE | 2024-10-23 08:58 | Hospitalist Progress Note ---
Date of Service October 23, 2024 Assessment & Plan (1) UTI (urinary tract infection): (2) Urolithiasis: (3) CKD (chronic kidney disease): Plan 79-year-old female PMHx hypothyroidism, MAXIMILIANO, CKD, generalized weakness, MDD, GERD, and HTN presenting for LLQ abdominal pain with associated N/V/D starting the day of arrival. ED evaluation reveals CBC with leukocytosis 11.72, stable H&H; CMP creatinine 1.62, glucose 138; lactate 2.4, pending repeat s/p fluids; UA positive for infection; CTAP L kidney with mild hydronephrosis and hydroureter to the obstructing calculus of 2 mm involving L lower ureter, 12 mm proximal to the vesicular ureteral junction, few hyperdense foci noted within th e calyx of bilateral kidneys, fat-containing supraumbilical hernia.; Provided with 1L NSS, Zofran 4 mg IV, morphine 4 mg IV, famotidine 20 mg IV, ceftriaxone 2 g IV, and acetaminophen 1 g IV in ED. #Hospital-acquired pneumonia CTA with multi lobar opacities and small effusions Pulmonary toilet as needed Antibiotics broadened 10/23 to empirical IV Zosyn and azithromycin x 7 to 10 days MRSA screen negative #Asthma exacerbation VBG with mild hypercapnia Steroids taper as tolerated. Bronchodilators May benefit from outpatient pulmonary referral #Acute hypoxic respiratory failure BiPAP at bedtime/as needed. Wean O2 #ELLY on CKD Follows with nephro for CKD, baseline Cr 1.5-2.2 Avoid nephrotoxic meds IV fluids Renal ultrasound #urolithiasis obstructing calculus 2mm in the left lower ureter resulting in mild hydronephrosis and hydroureter. UA suggestive of infection. Prior cultures with puga-sensitive Klebsiella and puga-sensitive E. coli. CTAP L kidney with minor hydronephrosis and hydroureter to the obstructing 2 mm calculus involving L lower ureter, 12 mm proximal to vesicular ureteral junction Supportive care Strain urine Status post left stent 10/21. Urology cleared for discharge follow-up outpatient For stone removal #Klebsiella UTI Pansensitive Continue antibiotics as above #Elevated troponins likely type II MIIn setting of above EKG nonischemic. 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 ASA. #Generalized weakness PT OT GI steroid prophylaxis DVT prophylaxis Dispo discharge in 2 to 3 days once weaned off O2 and after adequate course of IV antibiotics This document was dictated utilizing [employer]. Please excuse any grammatical errors that may be secondary to use of this software. Admission and Anticipated Discharge Date Admission Date: October 21, 2024 Subjective Overnight events noted and all data reviewed Discussed extensively with patient at bedside with RN present we went over all aspects of care. Some difficulty breathing since overnight that is improved. Denies any cough fe vers chills pleuritic or other chest pain nausea lightheadedness abdominal pain symptoms or really any other symptoms at this time Noted to have some wheezing. Was placed on IV steroids overnight. BP elevated likely associated with overnight events. PRNs Ordered Taken off BiPAP now down to 5 L O2 White count remains elevated. Procalcitonin elevated. All implicated with new HCAP. Creatinine worse. IV fluids increased. No reports of oliguria. RN monitoring. Checking UA and renal ultrasound Physical Exam Physical Exam: General: No acute distress Skin: Warm and dry Head: Normocephalic, atraumatic Eyes: PERRL, conjunctivae clear, sclera non-icteric ENT: External ear and ear canal without swelling; nose atraumatic; good dentition, tongue normal appearance, pharynx normal Neck: Supple, no LAD Cardio: s1 s2+ Resp: Air entry bilaterally scattered wheeze Abdomen: Soft, symmetric,Nontender MSK: No deformities; pulses palpable and equal; trace pitting edema BLE Neuro: Awake, alert; Sensation intact bilaterally; CN grossly intact Psych:Appropriate mood and affect; good judgement and insight. Results & Data Results & Data Vital Signs (Past 12 Hours) Vital Signs Temp Pulse Pulse Resp BP Pulse Ox Pulse Ox 10/23/24 07:47 81 10/23/24 07:47 10/23/24 07:16 36.7 C 87 23 180/75 H 94 10/23/24 07:06 86 21 96 10/23/24 07:06 87 22 96 10/23/24 03:00 96 10/23/24 02:44 30 H 92 10/23/24 02:44 30 H 92 10/22/24 23:02 105 H 10/22/24 22:47 10/22/24 22:34 23 94 10/22/24 22:15 36.6 C 99 H 18 151/75 H 94 10/22/24 21:35 109 H 40 H 97 10/22/24 21:26 112 H 26 H 96 O2 Del Method O2 Del Method O2 Flow Rate FiO2 10/23/24 07:47 10/23/24 07:47 BiPAP 10/23/24 07:16 CPAP 10/23/24 07:06 50 10/23/24 07:06 BiPAP 50 10/23/24 03:00 BiPAP 10/23/24 02:44 50 10/23/24 02:44 BiPAP 50 10/22/24 23:02 10/22/24 22:47 BiPAP 40 10/22/24 22:34 40 10/22/24 22:15 BiPAP 10/22/24 21:35 40 10/22/24 21:26 Nasal Cannula 6 Laboratory Results Abnormal Labs 10/20/24 10/20/24 10/21/24 22:00 22:47 00:59 WBC 11.71 H RBC 4.03 L Hgb Hct MCHC RDW Std Deviation 47.4 H Plt Count Neut # (Auto) 9.84 H Lymph # (Auto) 1.06 L [place] # (Auto) Immature Gran # (Auto) VBG pH VBG pCO2 BUN Creatinine 1.62 H Glucose 138 H Lactate 2.4 H* Calcium Troponin I High Sens Procalcitonin Urine Protein 3+ H Urine Ketones Trace H Urine Nitrite Positive A Ur Leukocyte Esterase 1+ H Urine WBC (Auto) 21-50 H Urine Bacteria (Auto) 4+ H 10/22/24 10/22/24 10/22/24 21:08 23:00 23:01 WBC 17.87 H RBC 3.25 L Hgb 10.5 L Hct 32.5 L MCHC RDW Std Deviation 52.7 H Plt Count Neut # (Auto) 14.52 H Lymph # (Auto) [place] # (Auto) 0.98 H Immature Gran # (Auto) 0.65 H VBG pH 7.28 L 7.31 L VBG pCO2 56 H 51 H BUN 38 H Creatinine 2.46 H D Glucose 118 H Lactate Calcium 8.5 L Troponin I High Sens 45.9 H Procalcitonin 17.80 H Urine Protein Urine Ketones Urine Nitrite Ur Leukocyte Esterase Urine WBC (Auto) Urine Bacteria (Auto) 10/23/24 10/23/24 01:10 05:44 WBC 16.70 H RBC 3.41 L Hgb 10.6 L Hct 33.4 L MCHC 31.7 L RDW Std Deviation 50.2 H Plt Count 128 L Neut # (Auto) Lymph # (Auto) [place] # (Auto) Immature Gran # (Auto) VBG pH 7.34 L VBG pCO2 BUN 36 H Creatinine 2.14 H D Glucose 185 H Lactate Calcium 8.3 L Troponin I High Sens 88.0 H* D Procalcitonin Urine Protein Urine Ketones Urine Nitrite Ur Leukocyte Esterase Urine WBC (Auto) Urine Bacteria (Auto) Diagnostic Findings Abdomen/Pelvis CT 10/20/24 22:07 EXAM: CT abd pelvis IV con only CLINICAL HISTORY: LLQ pain TECHNIQUE: Contiguous axial images were obtained from the level of the diaphragm to the pubic symphysis with intravenous contrast. Coronal and sagittal reconstructions were likewise performed and indicated to increase the sensitivity for detecting clinically relevant pathology. If IV contrast material had not been administered, the likelihood of detecting abnormalities relevant to the patient's condition would have been substantially decreased. CT scan was performed according to ALARA (as low as reasonable achievable). COMPARISON: Oct 15:31:34 [employer] FINDINGS: The visualized lung bases are clear. Sliding hiatus hernia noted. The liver is normal in size and attenuation. No focal liver lesions are seen. There is no intra or extrahepatic biliary ductal dilatation. Hepatic vasculature is patent. The gallbladder is removed. The spleen, pancreas, and adrenal glands are unremarkable. The kidneys are normal in size and attenuation. There is no hydronephrosis or perinephric fat stranding. About 44 x 22 mm sized cortical cysts noted involving right kidney - Bosniak type I . Left kidney shows mild hydronephrosis and hydroureter up to an obstructing calculus of size 2 mm involving left lower ureter, 12 mm proximal to vesicoureteric junction. Few hyperdense foci are noted within the calyx of bilateral kidneys- possibility of excreted contrast /calculi ( kindly correlate with non contrast study). The ureters are normal in caliber and no ureteral calculi are seen. The bladder is normal in contour. Pelvic viscera are unremarkable. No focal or diffuse bowel wall thickening or evidence of bowel obstruction is identified. The appendix is visualized in the right lower quadrant and appears within normal limits. Abdominal and pelvic vasculature is patent. No adenopathy or fluid collections are seen. No aggressive appearing osseous lesions are identified. Fat containing supraumbilical hernia. IMPRESSION: 1. Left kidney shows mild hydronephrosis and hydroureter up to an obstructing calculus of size 2 mm involving left lower ureter, 12 mm proximal to vesicoureteric junction.-new finding. 2. Few hyperdense foci are noted within the calyx of bilateral kidneys- possibility of excreted contrast /calculi ( kindly correlate with non contrast study). 3. Fat containing supraumbilical hernia.-stable. Electronically signed by Edwar Moore 10-21-2024 01:29 AM Retrograde Pyelogram 10/21/24 00:00 FL retrograde includes kub CLINICAL HISTORY: LEFT SIDED CYSTO COMPARISON STUDY: None FLUOROSCOPY TIME: 10 seconds FLUOROSCOPY IMAGES: 3 EXPOSURE DOSE: 3.5 mGy FINDINGS: Fluoroscopy was provided for urologic procedure. IMPRESSION: Intraoperative fluoroscopy. ACT 112: Negative or not required by law. Electronically signed by: Trung Jain M.D. 10/21/2024 2:12 PM Chest X-Ray 10/22/24 20:59 Exam(s): XR CXR 1 VIEW EXAM: XR Chest, 1 View CLINICAL HISTORY: Reason for exam: Chest pain, SOB. TECHNIQUE: Frontal view of the chest. COMPARISON: 11/21/2021 FINDINGS: Lungs: Patchy airspace opacities in the lungs bilaterally right greater than left with septal thickening. Pleural space: No pleural effusion. No pneumothorax. Heart: Unremarkable. No cardiomegaly. Bones/joints: Right shoulder prosthesis. IMPRESSION: Patchy airspace opacities in the lungs bilaterally right greater than left with septal thickening. Differential of pulmonary edema versus multifocal infection. Electronically signed by: Christiano Avina MD 10/22/24 21:43 PM Chest CTA 10/23/24 01:36 EXAM: CT angio chest PE protocol CLINICAL HISTORY: PE TECHNIQUE: Contiguous axial images were obtained from the neck base through the upper abdomen following intravenous administration of iodinated contrast material. Angiographic images were processed, 3D MIP images were acquired for interpretation. If IV contrast material had not been administered, the likelihood of detecting abnormalities relevant to the patient's condition would have been substantially decreased. Coronal and sagittal 3-D MIPs were likewise performed and indicated to increase the sensitivity of detectin diffuse clinically relevant pathology. CT scan was performed according to ALARA (as low as reasonable achievable). COMPARISON: None. FINDINGS: Multifocal patchy consolidations are noted involving bilateral lung; predominantly right upper and lower lobe. Mild bilateral pleural effusion with basal subsegmental collapse of both lower lobes are seen Adequate contrast bolus without evidence of pulmonary embolism. The central airways are patent. The heart, aorta, and pulmonary arteries are of normal size and configuration. There are coronary artery and aortic atherosclerotic calcifications. No pericardial effusion is identified. The thyroid is unremarkable. No mediastinal, hilar, or axillary lymphadenopathy is noted. No suspicious lytic or sclerotic osseous lesions are identified. IMPRESSION: No evidence of pulmonary embolism Multifocal patchy consolidations are noted involving bilateral lung; predominantly right upper and lower lobe. Mild bilateral pleural effusion with basal subsegmental collapse of both lower lobes are seen Electronically signed by Edwar Moore 10-23-2024 03:24 AM PG Care Time/CCT Total # of Minutes Spent Total Time Spent with Patient: Total time spent is greater than 50% in coordination of care (as documented) at patient's floor/unit and/or counseling patient: Coding Level of Care Code 52933 SUB INP/OBS CARE 2/35MIN Diagnoses UTI (urinary tract infection) N39.0 Urolithiasis N20.9 CKD (chronic kidney disease) N18.9
[2024-10-23] MEDS ORDERED: cefTRIAXone SODIUM 2,000 MG/50 ML BAG IV SCH (09:00)
[2024-10-23] MEDS ORDERED: cefTRIAXone SODIUM 1,000 MG/50 ML BAG IV SCH (09:00)
[2024-10-23] MEDS ORDERED: ALBUTEROL 0.5% NEB SOLN 2.5 MG/0.5 ML VIAL NEB PRN (09:07)
[2024-10-23 10:45] LABS: Chlamydia pneumoniae PCR Not Detected (NotDetected); Coronavirus 229E PCR Not Detected (NotDetected); Coronavirus CoV-2 (COVID19)PCR Not Detected (NotDetected); Coronavirus HKU1 PCR Not Detected (NotDetected); Coronavirus NL63 PCR Not Detected (NotDetected); Coronavirus OC43PCR Not Detected (NotDetected); Human Metapneumovirus PCR Not Detected (NotDetected); Parainfluenza Virus 1 PCR Not Detected (NotDetected); Parainfluenza Virus 2 PCR Not Detected (NotDetected); Parainfluenza Virus 3 PCR Not Detected (NotDetected); Parainfluenza Virus 4 PCR Not Detected (NotDetected); Respiratory Syncytial VirusPCR Not Detected (NotDetected); Rhinovirus/Enterovirus PCR Not Detected (NotDetected)
[2024-10-23 11:20] LABS: Appearance Urine Cloudy (Clear); Bacteria Urine Automated None Seen (None Seen); Epithelial Cell Urine Auto 0-2 /hpf (0-2); Glucose Urine UA Negative (Negative); RBC Urine Automated >20 /hpf (0-2); WBC Urine Automated 21-50 /hpf (0-5)
--- NOTE | 2024-10-23 11:39 | Ultrasound Report ---
RENAL ULTRASOUND HISTORY: jesusita COMPARISON: 06/08/2022 FINDINGS: Exam is limited by patient inability to cooperate. Right kidney measures 9 x 4 cm. Left kid cris measures 9 x 5 cm. There is no hydronephrosis bilaterally. There are a few cysts of the kidneys, largest measuring 3 cm at the right kidney. There is a possible 1 cm stone mid left kidney. There is mild renal cortical thinning. Urinary bladder is decompressed and not well evaluated. IMPRESSION: No hydronephrosis. ACT 112: Negative or not required by law. Electronically signed by: Trung Jain M.D. 10/23/2024 11:37 AM
--- NOTE | 2024-10-23 13:38 | XCELERA ---
[id number] \\[id number]
--- NOTE | 2024-10-23 15:04 | Electrocardiogram Report ---
Test Reason : Blood Pressure : */* mmHG Vent. Rate : 108 BPM Atrial Rate : 108 BPM P-R Int : 176 ms QRS Dur : 96 ms QT Int : 314 ms P-R-T Axes : 49 4 54 degrees QTcB Int : 420 ms Sinus tachycardia Otherwise normal ECG When compared with ECG of 20-Nov-2021 13:54, AL interval has decreased Vent. rate has increased by [address] now depressed in Lateral leads T wave inversion no longer evident in Anterior leads Confirmed by Philip Butcher ([id number]) on 10/23/2024 3:03:42 PM Referred By: REFERRED SELF Confirmed By: Philip Butcher
[2024-10-23] MEDS: HEPARIN SOD 5,000 UNIT/0.5 ML VIAL SQ SCH (16:48)
[2024-10-23] MEDS: HYDROmorphone INJ 0.5 MG/0.5 ML SYR IV PRN (21:57)
[2024-10-24 08:10] LABS: Hematocrit (blood only) 30.1 % (37.0-47.0); Hemoglobin 9.9 g/dl (12.0-16.0); Mean Corpuscular Hemoglobin 31.5 pg (25.0-34.0); Mean Corpuscular Volume 95.9 fL (80.0-100.0); Platelet Count 128 K/uL (130-400); RDW Standard Deviation 48.1 fL (36.4-46.3); Red Blood Count 3.14 M/uL (4.20-5.40); White Blood Count 10.92 K/ul (4.8-10.8)
[2024-10-24 08:35] LABS: Alanine Aminotransferase 11.0 U/L (7-52); Albumin Globulin Ratio 1.3 (0.9-2); Alkaline Phosphatase 47.0 U/L (34-104); Anion Gap 7.0 (3-11); Bilirubin,Total 0.6 mg/dl (0.2-1.0); Blood Urea Nitrogen 28.0 mg/dl (6-23); Calcium 8.4 mg/dl (8.6-10.3); Carbon Dioxide 28.0 mmol/L (21-32); Chloride 102.0 mmol/L (98-107); Creatinine Clr Calc Pharmacy 29.8 ml/min; Globulin 2.7 gm/dl (2.5-4.0); Glucose 160.0 mg/dl (70-99(Fasting)); Potassium 4.0 mmol/L (3.5-5.1); Sodium 137.0 mmol/L (136-145); Total Protein 6.1 gm/dl (6.0-8.3)
--- NOTE | 2024-10-24 09:38 | Hospitalist Progress Note ---
Date of Service October 24, 2024 Assessment & Plan (1) UTI (urinary tract infection): (2) Urolithiasis: (3) CKD (chronic kidney disease): Plan 79-year-old female PMHx hypothyroidism, MAXIMILIANO, CKD, generalized weakness, MDD, GERD, and HTN presenting for LLQ abdominal pain with associated N/V/D starting the day of arrival. ED evaluation reveals CBC with leukocytosis 11.72, stable H&H; CMP creatinine 1.62, glucose 138; lactate 2.4, pending repeat s/p fluids; UA positive for infection; CTAP L kidney with mild hydronephrosis and hydroureter to the obstructing calculus of 2 mm involving L lower ureter, 12 mm proximal to the vesicular ureteral junction, few hyperdense foci noted within th e calyx of bilateral kidneys, fat-containing supraumbilical hernia.; Provided with 1L NSS, Zofran 4 mg IV, morphine 4 mg IV, famotidine 20 mg IV, ceftriaxone 2 g IV, and acetaminophen 1 g IV in ED. #Hospital-acquired pneumonia CTA with multi lobar opacities and small effusions Respiratory infectious workup negative. MRSA screen negative Pulmonary toilet as needed Antibiotics broadened 10/23 to empirical IV Zosyn and azithromycin x 7 to 10 days #Asthma exacerbation VBG with mild hypercapnia Steroids taper as tolerated. Bronchodilators May benefit from outpatient pulmonary referral #Acute hypoxic respiratory failure BiPAP at bedtime/as needed. Wean O2 #ELLY on CKD Improving Follows with nephro for CKD, baseline Cr 1.5-2.2 Avoid nephrotoxic meds IV fluids Taper to oral intake Renal ultrasound Unrevealing #urolithiasis obstructing calculus 2mm in the left lower ureter resulting in mild hydronephrosis and hydroureter. UA suggestive of infection. Prior cultures with puga-sensitive Klebsiella and puga-sensitive E. coli. CTAP L kidney with minor hydronephrosis and hydroureter to the obstructing 2 mm calculus involving L lower ureter, 12 mm proximal to vesicular ureteral junction Supportive care Strain urine Status post left stent 10/21. Urology cleared for discharge follow-up outpatient For stone removal Once infection resolved #Klebsiella UTI Pansensitive Continue antibiotics as above #Elevated troponins likely type II MII in setting of above EKG nonischemic. TNI is flat TTE unrevealing Cardiology consulted. 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 ASA. #Generalized weakness PT OT GI steroid prophylaxis DVT prophylaxis Dispo discharge in 2 to 3 days once weaned off O2 and after adequate course of IV antibiotics This document was dictated utilizing [employer]. Please excuse any grammatical errors that may be secondary to use of this software. Admission and Anticipated Discharge Date Admission Date: October 21, 2024 Subjective Very pleasant extensive discussion with daughter yesterday she was very appreciative Doing much better today. RN at bedside. We discussed everything again extensively. Patient doing much better. Breathing improving. Was on BiPAP overnight. RN attempting to wean off O2 and mobilize. States she feels better endorses mild substernal chest pain this seems to be new. Continue to trend troponins. Echo unrevealing. Cardiology consulted Review of Systems Constitutional: as per Subjective / HPI Genitourinary: as per Subjective / HPI Physical Exam Physical Exam: General: No acute distress Skin: Warm and dry Head: Normocephalic, atraumatic Eyes: PERRL, conjunctivae clear, sclera non-icteric ENT: External ear and ear canal without swelling; nose atraumatic; good dentition, tongue normal appearance, pharynx normal Neck: Supple, no LAD Cardio: s1 s2+ Resp: Air entry bilaterally scattered wheeze Abdomen: Soft, symmetric,Nontender MSK: No deformities; pulses palpable and equal; trace pitting edema BLE Neuro: Awake, alert; Sensation intact bilaterally; CN grossly intact Psych:Appropriate mood and affect; good judgement and insight. Results & Data Results & Data Vital Signs (Past 12 Hours) Vital Signs Temp Pulse Pulse Resp BP Pulse Ox Pulse Ox 10/24/24 07:39 36.7 C 81 20 164/71 H 93 10/24/24 07:06 78 18 94 10/24/24 07:00 82 10/24/24 07:00 10/24/24 03:30 65 18 97 10/24/24 03:06 36.7 C 80 18 149/73 H 95 10/24/24 03:00 94 07/25/25 23:00 37.1 C 77 18 137/70 94 10/23/24 22:25 78 20 94 10/23/24 21:50 93 H O2 Del Method O2 Del Method O2 Flow Rate FiO2 10/24/24 07:39 Nasal Cannula 5 10/24/24 07:06 Nasal Cannula 5 10/24/24 07:00 10/24/24 07:00 Nasal Cannula 5 10/24/24 03:30 50 10/24/24 03:06 BiPAP 10/24/24 03:00 BiPAP 10/23/24 23:00 BiPAP 10/23/24 22:25 50 10/23/24 21:50 Laboratory Results Abnormal lab results 10/23/24 10/23/24 10/23/24 Range/Units 07:49 15:22 23:50 WBC (4.8-10.8) K/ul RBC (4.20-5.40) M/uL Hgb (12.0-16.0) g/dl Hct (37.0-47.0) % RDW Std Deviation (36.4-46.3) fL Plt Count (130-400) K/uL BUN (6-23) mg/dl Creatinine (0.6-1.2) mg/dl Glucose (70-99(Fasting)) mg/dl Calcium (8.6-10.3) mg/dl Troponin I High Sens 98.2 H* D 97.4 H* 108.5 H* (0-14) pg/ml Urine Appearance (Clear) Urine Protein (Negative) Urine Blood (Negative) Ur Leukocyte Esterase (Negative) Urine WBC (Auto) (0-5) /hpf Urine RBC (Auto) (0-2) /hpf U Hyaline Cast (Auto) (0-2) /lpf 10/23/24 10/24/24 Range/Units Unknown 07:45 WBC 10.92 H (4.8-10.8) K/ul RBC 3.14 L (4.20-5.40) M/uL Hgb 9.9 L (12.0-16.0) g/dl Hct 30.1 L (37.0-47.0) % RDW Std Deviation 48.1 H (36.4-46.3) fL Plt Count 128 L (130-400) K/uL BUN 28 H (6-23) mg/dl Creatinine 1.75 H D (0.6-1.2) mg/dl Glucose 160 H (70-99(Fasting)) mg/dl Calcium 8.4 L (8.6-10.3) mg/dl Troponin I High Sens 58.3 H* D (0-14) pg/ml Urine Appearance Cloudy A (Clear) Urine Protein 1+ H (Negative) Urine Blood 3+ H (Negative) Ur Leukocyte Esterase 2+ H (Negative) Urine WBC (Auto) 21-50 H (0-5) /hpf Urine RBC (Auto) >20 H (0-2) /hpf U Hyaline Cast (Auto) 3-5 H (0-2) /lpf PG Care Time/CCT Total # of Minutes Spent Total Time Spent with Patient: Total time spent is greater than 50% in coordination of care (as documented) at patient's floor/unit and/or counseling patient: Coding Level of Care Code 58656 SUB INP/OBS CARE 2/35MIN Diagnoses UTI (urinary tract infection) N39.0 Urolithiasis N20.9 CKD (chronic kidney disease) N18.9
--- NOTE | 2024-10-24 16:47 | Cardiology Consultation ---
Date of Consultation October 24, 2024 Assessment & Plan (1) Elevated troponin: (2) Paroxysmal SVT (supraventricular tachycardia): (3) HTN (hypertension): (4) Hypoxia: Plan ASSESSMENT/PLAN: 1. Elevated troponin: She did not present with acute coronary syndrome. Likely due to demand ischemia in the setting of UTI and pneumonia. Treat underlying acute illnesses. If future symptoms concerning for ischemic heart disease, could consider ischemic evaluation, but would not pursue currently while hospitalized for acute infection. Workup could be considered in the outpatient setting for concerning symptoms. 2. Paroxysmal SVT/atrial tachycardia: Episodes noted on telemetry on 10/24/2024. She appeared to be asymptomatic. Episodes were sustained for a few minutes. Continue home dose of beta-benson. Findings discussed with patient and family at the bedside. Would not pursue antiarrhythmic therapy or ablation unless significantly prolonged episodes, hemodynamically significant episodes, or quality of life is significantly impacted. 3. Hypertension: Blood pressure has been mostly hypertensive. Continue home medications (amlodipine, carvedilol, hydralazine). Further adjustments can be made as necessary by primary hospitalist service. 4. UTI: As per primary hospitalist service. 5. Pneumonia: Concern for aspiration based on patient and family description of choking/coughing while eating. On antibiotics per hospitalist service. 6. Hypoxia: Net fluid balance is positive throughout the hospital stay. Would try to maintain more even balance, especially in light of her increased oxygen requirement. Would consider intermittent dosing of intravenous Lasix. 7. Disposition: Cardiology will continue to follow. Please call with questions or concerns. Patient care communicated with primary hospitalist, Dr. Mathis. Thank you for allowing me to participate in the care of your patient. Please call for any other questions or concerns. Sincerely, Cachorro Posada M.D. History of Present Illness Reason for Consultation: Elevated troponin Requesting Physician: Michael Mathis MD Attending Physician: Michael Mathis MD History of Present Illness Ms. Aldana is a very pleasant 79-year-old female with a history significant for hypertension, intracranial hemorrhage (2020), asthma, and CKD. She was hospitalized on 10/21/2024 with UTI with mild left hydronephrosis and left lower ureter calculus. Cardiology was consulted due to elevated troponin levels. High-sensitivity troponin was initially 45 and peaked at 108 on 10/23/2024 before trending downward. She presented with a few days worth of chills but no fever. She had left flank pain and dysuria. She has chronic but stable pedal edema, without significant worsening. She was found to have UTI with urine culture from 10/20/2024 demonstrating Klebsiella pneumoniae. Overnight on 10/22/2024, she complained of shortness of breath and chest discomfort to nursing staff and was seen by hospitalist service. Oxygen requirement increased from 2 L via nasal cannula to 4 L. She was then transition to BiPAP and received DuoNebs. Solu-Medrol IV and intravenous Lasix 20 mg were administered. There was suspicion for possible aspiration event per land acquisition manager note. Family admits that she coughs and chokes, specifically with liquids however patient recalls also with food. She is feeling much better today and family admits that she is looking better although she still requires supplemental oxygen 5 L via nasal cannula. She states that she has intermittent pleuritic chest pain since her event on 10/22/2024. She first described the pain that night as a right upper chest pain/central tightness that lasted for 30 minutes, stating that it first started in her left flank at night. She denies syncope, near syncope, melena, hematochezia, or hematuria. She admits that she has had palpitations through her "whole life" described as a skipping sensation. Although she had some arrhythmia on telemetry today, she denies any palpitations today. After further thought, she stated perhaps she had some palpitations earlier this morning. Review of systems: As above. Family history: Mother had PCI in her early 70s. Social history: She denies tobacco, alcohol, or drug abuse. She lives at home with her . She has 2 daughters. Her and daughters were present at the bedside. Allergies Allergy/AdvReac Type Severity Reaction Status Date / Time amoxicillin Allergy Intermediate Hives Verified 10/21/24 10:50 fentanyl Allergy Intermediate extreme Verified 10/21/24 10:50 confusion/hallucination Penicillins Allergy Mild RASH TO Verified 10/21/24 10:50 AMOXIL, NO RESP PROBLEMS Home Medications Medication Instructions Recorded Confirmed Type cholecalciferol (vitamin D3) 25 50 mcg (2 x 25 mcg (1,000 unit)) 09/02/20 10/20/24 Rx mcg (1,000 unit) tablet (Vitamin PO QAM #90 tabs D3) aspirin 81 mg tablet,delayed 81 mg PO DAILY #90 tabs 04/06/21 10/20/24 Rx release albuterol sulfate 90 mcg/actuation 2 puff inhalation Q6H PRN Wheezing 09/14/21 10/20/24 History aerosol inhaler sertraline 100 mg tablet 100 mg PO HS #30 tabs 12/01/21 10/20/24 Rx cranberry 500 mg capsule 500 mg PO BID 10/23/22 10/20/24 History nystatin 100,000 unit/gram topical 1 applic topical BID PRN 05/02/23 10/20/24 Rx powder (Nystop) irritation #60 grams amlodipine 10 mg tablet 10 mg PO DAILY #90 tabs 12/25/23 10/20/24 Rx foam bandage 6" X 6" (Optifoam) #10 ea 01/02/24 09/28/24 Rx levothyroxine 50 mcg tablet 50 mcg PO DAILY #90 tabs 01/31/24 10/20/24 Rx carvedilol 12.5 mg tablet (Coreg) 12.5 mg PO BID #60 tabs 05/12/24 10/20/24 Rx gabapentin 300 mg capsule 300 mg PO BID 07/20/24 10/20/24 History lamotrigine 100 mg tablet 100 mg PO DAILY 07/20/24 10/20/24 History mupirocin 2 % topical ointment 1 applic topical BID PRN rash #22 07/21/24 10/20/24 Rx grams hydralazine 50 mg tablet 50 mg PO TID #90 tabs 09/28/24 10/20/24 Rx triamcinolone acetonide 0.05 % 1 applic topical BID PRN rash #430 09/28/24 10/20/24 Rx topical ointment grams hydroxyzine HCl 25 mg tablet 25 mg PO .COMPLEX PRN anxiety #60 10/12/24 10/20/24 Rx tabs pantoprazole 40 mg tablet,delayed 40 mg PO QAM #14 tabs 10/24/24 Rx release prednisone 50 mg tablet 50 mg PO DAILY 5 days #5 tabs 10/24/24 Rx Problem List (Updated 10/24/24 @ 17:01 by Rhys Posada MD) Hypoxia Paroxysmal SVT (supraventricular tachycardia) Elevated troponin Acute UTI (Acute) Ureterolithiasis (Acute) Renal colic on left side (Acute) Urolithiasis Urinary incontinence Gait instability Recent urinary tract infection MAXIMILIANO (generalized anxiety disorder) CKD (chronic kidney disease) (Acute) Weakness (Acute) Generalized weakness Morbid obesity History of intracerebral hemorrhage without residual deficit Vertigo Status post reverse arthroplasty of right shoulder Closed fracture of right proximal humerus (Acute) Hypercholesterolemia Secondary hyperparathyroidism (Chronic) Stroke 11/2020 Chronic kidney disease (Chronic) Anxiety (Chronic) HTN (hypertension) GERD (gastroesophageal reflux disease) Major depressive disorder Patient History Medical History Anxiety History of urinary incontinence Hypercholesteremia History of intracerebral hemorrhage without residual deficit (11/2020) no residual effects Hypertension CKD (chronic kidney disease), stage IV f/u al nephrology Lightheadedness occasional "sometimes dependent on anxiety level" Osteoarthritis Irregular heart beats hx; no longer needs to follows with Dr. Orozco Wheezing intermittent---reason for inhaler Morbid obesity Right carotid bruit Depression Surgical History Status post reverse arthroplasty of right shoulder (2021) History of right knee joint replacement History of dilatation and curettage History of bilateral tubal ligation History of total left knee replacement (TKR) History of cholecystectomy History of colonoscopy (2019) History of esophagogastroduodenoscopy (EGD) History of tooth extraction Family History Mother , age 82 of complications of diabetes Heart disease Stroke Family history of diabetes mellitus Grandmother (Maternal) Family history of diabetes mellitus Father , age 80 of liver issues Liver disease Other No family history of adverse response to anesthesia Social History Smoking Status: Never smoker Second Hand Exposure: No; Do You Dip or Chew Tobacco: No; Hx Alcohol Use: No Hx Substance Use: No Preferred Language: Kyrgyz Communication Ability: Effective Security Software Engineer Required: No Beliefs That Will Affect Care: None marital status: Current Living Situation: Spouse current occupational status: retired 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 Alert. HEENT: Anicteric sclera. Neck: Thick/short neck. Cardiac: Regular normal S1-S2. No murmurs, rubs, or gallops. Pulmonary: Decreased breath sounds bilaterally with mild crackles throughout. Abdomen: Soft, nondistended, with normoactive bowel sounds. No bruits noted. Diffuse mild tenderness. Extremities: 2+ radial pulses bilaterally. 2+ posterior tibialis pulses bilaterally. Trace bilateral lower extremity edema. No cyanosis. Results & Data Vital Signs (Past 12 Hours) Vital Signs Temp Pulse Pulse Resp BP Pulse Ox O2 Del Method 10/24/24 15:50 36.9 C 86 18 152/63 H 91 Room Air 10/24/24 14:00 81 10/24/24 12:55 82 21 92 Nasal Cannula 10/24/24 11:30 36.7 C 92 H 18 155/70 H 91 Nasal Cannula 10/24/24 07:39 36.7 C 81 20 164/71 H 93 Nasal Cannula 10/24/24 07:06 78 18 94 Nasal Cannula 10/24/24 07:00 82 10/24/24 07:00 Nasal Cannula O2 Flow Rate 10/24/24 15:50 10/24/24 14:00 10/24/24 12:55 5 10/24/24 11:30 5 10/24/24 07:39 5 10/24/24 07:06 5 10/24/24 07:00 10/24/24 07:00 5 Intake & Output 10/22/24 10/23/24 10/24/24 10/25/24 06:59 06:59 06:59 06:59 Intake Total 3648 / 3648 2650.417 / 2650.417 4073.084 / 4073.084 1421.25 / 1421.25 Output Total 200 / 200 650 / 650 1900 / 1900 550 / 550 Balance 3448 / 3448 2000.417 / 2000.417 2173.084 / 2173.084 871.25 / 871.25 Weight 210 lb 5.136 oz 219 lb 2.232 oz 228 lb 9.91 oz Laboratory Results Laboratory Results - last 24 hr 10/23/24 10/24/24 10/24/24 23:50 07:45 16:01 WBC 10.92 H RBC 3.14 L Hgb 9.9 L Hct 30.1 L MCV 95.9 MCH 31.5 MCHC 32.9 RDW Std Deviation 48.1 H RDW Coeff of Chauncey 13.6 Plt Count 128 L MPV 10.4 Sodium 137 Potassium 4.0 Chloride 102 Carbon Dioxide 28 Anion Gap 7 BUN 28 H Creatinine 1.75 H D Est Cr Clr Drug Dosing 29.8 eGFR 29.65 BUN/Creatinine Ratio 16.0 Glucose 160 H Calcium 8.4 L Total Bilirubin 0.6 AST 13 ALT 11 Alkaline Phosphatase 47 Troponin I High Sens 108.5 H* 58.3 H* D Pending Total Protein 6.1 Albumin 3.4 Globulin 2.7 Albumin/Globulin Ratio 1.3 Diagnostic Findings History and physical report reviewed. Echo 10/23/2024: Normal LV systolic function. EF 55-60%. Normal wall motion. Mild LVH. No significant valvular abnormalities. Normal RVSP, assuming normal right atrial pressure. Telemetry personally reviewed: Predominantly sinus rhythm but episodes of SVT versus atrial tachycardia on 10/24/2024 near 120 to 130 bpm. Episodes were sustained up to 7 to 8 minutes. There were episodes at 10:01 AM and also 1:06 PM. Communication report reviewed from 10/22/2024. Labs reviewed and notable for elevated high-sensitivity troponin peaking at 108, normal potassium, chronically abnormal renal function (relatively stable), normal transaminase levels, new anemia, mild thrombocytopenia, improving leukocytosis. Urine culture reviewed as noted above in HPI. Renal ultrasound 10/23/2024: No hydronephrosis. CTA chest 10/23/2024: No pulmonary embolism. Multifocal patchy consolidations involving bilateral lung, predominantly right upper and lower lobe. Mild bilateral pleural effusion with basal subsegmental collapse of both lower lobes per radiology. CT abdomen/pelvis 10/20/2024: Left mild hydronephrosis. Obstructing calculus of 2 mm in size involving the left lower ureter. ECG personally reviewed 10/22/2024 at 2101: Sinus tachycardia 108 bpm. Medications Administered Current Inpatient Medications Acetaminophen (Acetaminophen 325 Mg Tab) 650 mg PO Q4H PRN PRN Reason: Pain or Fever Stop: 11/20/24 03:29 Albuterol (Albut/Ipratrop 3mg/0.5mg Neb 3 Ml Vial) 3 ml NEB Q6R MONSE; Protocol Stop: 11/22/24 06:59 Last Admin: 10/24/24 12:54 Dose: 3 ml Albuterol (Albut/Ipratrop 3mg/0.5mg Neb 3 Ml Vial) 3 ml NEB Q6R MONSE; Protocol Stop: 11/22/24 12:59 Last Admin: 10/24/24 12:54 Dose: Not Given Albuterol (Albuterol 0.5% Neb Soln 2.5 Mg/0.5 Ml Vial) 2.5 mg NEB Q6R PRN; Protocol PRN Reason: Shortness Of Breath Or Wheezing Stop: 11/22/24 12:59 Amlodipine Besylate (Amlodipine Besylate 5 Mg Tab) 10 mg PO DAILY MONSE Stop: 11/20/24 08:59 Last Admin: 10/24/24 09:00 Dose: 10 mg Aspirin (Aspirin 81 Mg Chew) 81 mg PO QAM MONSE Stop: 11/21/24 08:59 Last Admin: 10/24/24 08:59 Dose: 81 mg Budesonide (Budesonide 0.5 Mg/2 Ml Vial (Pulmicort)) 0.5 mg NEB BIDR [facility] Stop: 11/22/24 01:59 Last Admin: 10/24/24 07:05 Dose: 0.5 mg Carvedilol (Carvedilol 12.5 Mg Tab) 12.5 mg PO BID [facility] Stop: 11/20/24 08:59 Last Admin: 10/24/24 08:59 Dose: 12.5 mg Diatrizoate Meglumine (Diatrizoate Meglumine 30% 100ml Vial) 4 ml INSTIL UD PRN PRN Reason: surgery Stop: 10/25/24 12:57 Gabapentin (Gabapentin 300 Mg Cap) 300 mg PO BID [facility] Stop: 11/20/24 08:59 Last Admin: 10/24/24 09:00 Dose: 300 mg Heparin Sodium (Porcine) (Heparin Sod 5,000 Unit/0.5 Ml Vial) 5,000 units SQ Q8 MONSE Stop: 11/22/24 13:59 Last Admin: 10/24/24 13:53 Dose: 5,000 units Hydralazine HCl (Hydralazine Tab 50 Mg Tab) 50 mg PO TID MONSE Stop: 11/20/24 08:59 Last Admin: 10/24/24 13:54 Dose: 50 mg Hydralazine HCl (Hydralazine Hcl 20 Mg/Ml Vial) 10 mg IV Q4 PRN PRN Reason: sbp>185 or dbp>95 Stop: 11/22/24 08:58 Hydromorphone HCl (Hydromorphone Inj 0.5 Mg/0.5 Ml Syr) 0.25 mg IV Q3H PRN PRN Reason: Pain (1,2,3,4,5) & Pre PT Stop: 11/04/24 02:23 Last Admin: 10/23/24 21:57 Dose: 0.25 mg Hydromorphone HCl (Hydromorphone Inj 0.5 Mg/0.5 Ml Syr) 0.5 mg IV Q3H PRN PRN Reason: Pain (6,7,8,9,10) Stop: 11/04/24 02:23 Last Admin: 10/22/24 15:16 Dose: 0.5 mg Hydroxyzine HCl (Hydroxyzine Hcl 25 Mg Tab) 50 mg PO HS PRN PRN Reason: anxiety Stop: 11/20/24 03:29 Methylprednisolone 40 mg/ (Syringe) 0.64 mls @ 1.5 mls/min IV Q24H [facility] Stop: 11/22/24 20:59 Last Admin: 10/23/24 21:30 Dose: 1.5 mls/min Azithromycin (Zithromax) 500 mg in 255 mls @ 127.5 mls/hr IV Q24H [facility] Stop: 10/28/24 00:44 Last Infusion: 10/23/24 23:48 Dose: Infused Piperacillin Sod/Tazobactam Sod (Zosyn) 4.5 gm in 100 mls @ 25 mls/hr IV Q8H [facility]; Protocol Stop: 10/28/24 07:59 Last Admin: 10/24/24 15:51 Dose: 25 mls/hr Lamotrigine (Lamotrigine 100 Mg Tab) 100 mg PO DAILY [facility]; Protocol Stop: 11/20/24 08:59 Last Admin: 10/24/24 09:00 Dose: 100 mg Levothyroxine Sodium ([facility]othyroxine Sodium 50 Mcg Tablet) [facility]: 11/20/24 06:29 Last Admin: 10/24/24 06:09 Dose: 50 mcg Melatonin (Melatonin 3 Mg Tab) 3 mg PO HS PRN PRN Reason: Sleep Stop: 11/20/24 03:29 Last Admin: 10/21/24 20:12 Dose: 3 mg Metoclopramide HCl (Metoclopramide Hcl Inj 5 Mg/Ml 2 Ml Vial) 10 mg IV Q6H PRN PRN Reason: Nausea Stop: 11/20/24 03:29 Ondansetron HCl (Ondansetron Inj 2 Mg/Ml 2 Ml Vial) 4 mg IV Q6H PRN PRN Reason: Nausea Stop: 11/20/24 03:29 Pantoprazole Sodium (Pantoprazole 40 Mg Tab) 40 mg PO QAM MONSE Stop: 11/22/24 09:29 Last Admin: 10/24/24 09:00 Dose: 40 mg Polyethylene Glycol (Polyethylene (Miralax) 17 Gm Pack) 17 gm PO DAILY PRN PRN Reason: Constipation Stop: 11/20/24 03:29 Sertraline HCl (Sertraline Hcl 100 Mg Tablet) 100 mg PO HS MONSE Stop: 11/20/24 20:59 Last Admin: 10/23/24 21:29 Dose: 100 mg PG Care Time/CCT Total # of Minutes Spent Total Time Spent with Patient: Total time spent is greater than 50% in coordination of care (as documented) at patient's floor/unit and/or counseling patient: Coding Level of Care Code 36865 INT INP/OBS CARE 3/75MIN Diagnoses Elevated troponin R79.89 Paroxysmal SVT (supraventricular tachycardia) I47.10 HTN (hypertension) I10 Hypoxia R09.02
[2024-10-25] MEDS: COUGH DROP (SUGAR FREE) LOZ 24 LOZ/1 BOX BUCCAL STA (04:41)
[2024-10-25] MEDS: ADVANCED PROBIOTIC 625 MG CAPSULE PO SCH (08:14)
[2024-10-25 08:28] LABS: Adenovirus F 40/41 PCR Not Detected (NotDetected); Campylobacter PCR Not Detected (NotDetected); Enteroaggregative E.coli(EAEC) Not Detected (NotDetected); Shiga-like Toxin E.coli (STEC) Not Detected (NotDetected); Vibrio species PCR Not Detected (NotDetected)
[2024-10-25 09:14] LABS: Hematocrit (blood only) 33.0 % (37.0-47.0); Hemoglobin 10.8 g/dl (12.0-16.0); Mean Corpuscular Hemoglobin 31.5 pg (25.0-34.0); Mean Corpuscular Volume 96.2 fL (80.0-100.0); Platelet Count 157 K/uL (130-400); RDW Standard Deviation 48.4 fL (36.4-46.3); Red Blood Count 3.43 M/uL (4.20-5.40); White Blood Count 10.53 K/ul (4.8-10.8)
[2024-10-25 09:28] LABS: Anion Gap 10.0 (3-11); Blood Urea Nitrogen 27.0 mg/dl (6-23); Calcium 8.7 mg/dl (8.6-10.3); Carbon Dioxide 29.0 mmol/L (21-32); Chloride 102.0 mmol/L (98-107); Creatinine Clr Calc Pharmacy 31.5 ml/min; Glucose 182.0 mg/dl (70-99(Fasting)); Potassium 3.5 mmol/L (3.5-5.1); Sodium 141.0 mmol/L (136-145)
[2024-10-25 09:36] LABS: Anion Gap 9.0 (3-11); Bilirubin,Total 0.7 mg/dl (0.2-1.0); Calcium 8.7 mg/dl (8.6-10.3); Carbon Dioxide 29.0 mmol/L (21-32); Chloride 103.0 mmol/L (98-107); Potassium 3.5 mmol/L (3.5-5.1); Sodium 141.0 mmol/L (136-145)
[2024-10-25 09:42] LABS: Alanine Aminotransferase 25.0 U/L (7-52); Albumin Globulin Ratio 1.2 (0.9-2); Alkaline Phosphatase 52.0 U/L (34-104); Blood Urea Nitrogen 27.0 mg/dl (6-23); Creatinine Clr Calc Pharmacy 32.7 ml/min; Globulin 3.0 gm/dl (2.5-4.0); Glucose 180.0 mg/dl (70-99(Fasting)); Total Protein 6.5 gm/dl (6.0-8.3)
--- NOTE | 2024-10-25 11:28 | Hospitalist Progress Note ---
Date of Service October 25, 2024 Assessment & Plan (1) UTI (urinary tract infection): (2) Urolithiasis: (3) CKD (chronic kidney disease): Plan 79-year-old female PMHx hypothyroidism, MAXIMILIANO, CKD, generalized weakness, MDD, GERD, and HTN presenting for LLQ abdominal pain with associated N/V/D starting the day of arrival. ED evaluation reveals CBC with leukocytosis 11.72, stable H&H; CMP creatinine 1.62, glucose 138; lactate 2.4, pending repeat s/p fluids; UA positive for infection; CTAP L kidney with mild hydronephrosis and hydroureter to the obstructing calculus of 2 mm involving L lower ureter, 12 mm proximal to the vesicular ureteral junction, few hyperdense foci noted within th e calyx of bilateral kidneys, fat-containing supraumbilical hernia.; Provided with 1L NSS, Zofran 4 mg IV, morphine 4 mg IV, famotidine 20 mg IV, ceftriaxone 2 g IV, and acetaminophen 1 g IV in ED. #Hospital-acquired pneumonia CTA with multi lobar opacities and small effusions Respiratory infectious workup negative. MRSA screen negative Pulmonary toilet as needed Antibiotics broadened 10/23 to empirical IV Zosyn and azithromycin x 7 to 10 days #Rule out dysphagia Aspiration precautions ST evaluation #Asthma exacerbation VBG with mild hypercapnia Steroids taper as tolerated. Bronchodilators May benefit from outpatient pulmonary referral #Acute hypoxic respiratory failure BiPAP at bedtime/as needed. Wean O2 #ELLY on CKD Improving Follows with nephro for CKD, baseline Cr 1.5-2.2 Avoid nephrotoxic meds IV fluids Taper to oral intake Renal ultrasound Unrevealing #urolithiasis obstructing calculus 2mm in the left lower ureter resulting in mild hydronephrosis and hydroureter. UA suggestive of infection. Prior cultures with puga-sensitive Klebsiella and puga-sensitive E. coli. CTAP L kidney with minor hydronephrosis and hydroureter to the obstructing 2 mm calculus involving L lower ureter, 12 mm proximal to vesicular ureteral junction Supportive care Strain urine Status post left stent 10/21. Urology cleared for discharge follow-up outpatient For stone removal Once infection resolved #Klebsiella UTI Pansensitive Continue antibiotics as above #Elevated troponins likely type II MII in setting of above EKG nonischemic. TNI is flat TTE unrevealing Cardiology consulted they have no further input. Can consider outpatient ischemic workup #Paroxysmal SVT/atrial tachycardia beta-benson #HTN- Amlodipine, carvedilol, hydralazine #MAXIMILIANO/MDD- Sertraline, Lamotrigine, hydroxyzine #Hypothyroidism- Levothyroxine #H/o CVA- Parietal lobe infarct 05/03 ICH 2020, RUE weakness as residual deficit. ASA. #Generalized weakness PT OT GI steroid prophylaxis DVT prophylaxis Dispo discharge in 2 to 3 days once weaned off O2 and after adequate course of IV antibiotics This document was dictated utilizing Open CS. Please excuse any grammatical errors that may be secondary to use of this software. Admission and Anticipated Discharge Date Admission Date: October 21, 2024 Subjective Doing very well breathing continues to improve. No fevers chills chest pain shortness of breath or any other symptoms Lasix 40 IV x 1 given after discussion with automotive electrical fitter yesterday Review of Systems Constitutional: as per Subjective / HPI Genitourinary: as per Subjective / HPI Physical Exam Physical Exam: General: No acute distress Skin: Warm and dry Head: Normocephalic, atraumatic Eyes: PERRL, conjunctivae clear, sclera non-icteric ENT: External ear and ear canal without swelling; nose atraumatic; good dentition, tongue normal appearance, pharynx normal Neck: Supple, no LAD Cardio: s1 s2+ Resp: Air entry bilaterally scattered wheeze Abdomen: Soft, symmetric,Nontender MSK: No deformities; pulses palpable and equal; trace pitting edema BLE Neuro: Awake, alert; Sensation intact bilaterally; CN grossly intact Psych:Appropriate mood and affect; good judgement and insight. Results & Data Results & Data Vital Signs (Past 12 Hours) Vital Signs Temp Pulse Pulse Resp BP Pulse Ox Pulse Ox 10/25/24 07:42 36.6 C 119 H 20 181/82 H 93 10/25/24 07:06 118 H 18 94 10/25/24 07:00 95 H 10/25/24 07:00 10/25/24 03:00 92 10/25/24 02:48 36.9 C 88 18 165/66 H 93 10/25/24 01:14 87 30 H 97 10/25/24 00:17 84 16 92 O2 Del Method O2 Del Method O2 Flow Rate O2 Flow Rate FiO2 10/25/24 07:42 Nasal Cannula 10/25/24 07:06 Nasal Cannula 5 10/25/24 07:00 10/25/24 07:00 Nasal Cannula 5 10/25/24 03:00 Nasal Cannula 5 10/25/24 02:48 Nasal Cannula 5 10/25/24 01:14 40 10/25/24 00:17 Nasal Cannula 5 PG Care Time/CCT Total # of Minutes Spent Total Time Spent with Patient: Total time spent is greater than 50% in coordination of care (as documented) at patient's floor/unit and/or counseling patient: Coding Level of Care Code 21149 SUB INP/OBS CARE MIN Diagnoses UTI (urinary tract infection) N39.0 Urolithiasis N20.9 CKD (chronic kidney disease) N18.9
[2024-10-25] MEDS: FUROSEMIDE 40 MG/4 ML VIAL IV ONE (11:53)
--- NOTE | 2024-10-25 14:40 | Cardiology Progress Note ---
Date of Service October 25, 2024 Assessment & Plan (1) Elevated troponin: (2) Paroxysmal SVT (supraventricular tachycardia): (3) HTN (hypertension): (4) Hypoxia: Plan ASSESSMENT/PLAN: 1. Elevated troponin: She did not present with acute coronary syndrome. Likely due to demand ischemia in the setting of UTI and pneumonia. Treat underlying acute illnesses. If future symptoms concerning for ischemic heart disease, could consider ischemic evaluation, but would not pursue currently while hospitalized for acute infection. Workup could be considered in the outpatient setting for concerning symptoms. 2. Paroxysmal SVT/atrial tachycardia: Episodes noted on telemetry on 10/24/2024 and 10/25/24. Asymptomatic. Episodes were sustained for a few minutes. Increase carvedilol to 25 mg twice daily. Could also replace amlodipine in the future with diltiazem if necessary. Would not pursue antiarrhythmic therapy or ablation unless significantly prolonged episodes, hemodynamically significant episodes, or quality of life is significantly impacted. 3. Hypertension: Blood pressure has been mostly hypertensive. Adjusting carvedilol as above and also received Lasix today. 4. UTI: As per primary hospitalist service. 5. Pneumonia: Concern for aspiration based on patient and family description of choking/coughing while eating. On antibiotics per hospitalist service. 6. Hypoxia: Net fluid balance is positive throughout the hospital stay. Would try to maintain more even balance, especially in light of her increased oxygen requirement. Received Lasix 40 mg IV today. 7. Disposition: Cardiology will continue to follow. Please call with questions or concerns. Patient care communicated with primary hospitalist, Dr. Mathis. Admission and Anticipated Discharge Date Admission Date: October 21, 2024 Subjective Patient seen earlier today. She denies chest pain. She believes that her breathing has improved but still has shortness of breath at times, including orthopnea. She denies syncope, near syncope, melena, hematochezia, or hematuria. She has had episodes of what appears to be atrial tachycardia on telemetry into the 120s but has remained asymptomatic this morning. Physical Exam Physical Exam: Gen.: No acute distress. Alert. HEENT: Anicteric sclera. Neck: Thick/short neck. Cardiac: Regular. Normal S1-S2. No murmurs, rubs, or gallops. Pulmonary: Decreased breath sounds bilaterally with mild crackles at the right b ase. Abdomen: Soft, nondistended, with normoactive bowel sounds. No bruits noted. Diffuse mild tenderness. Extremities: 2+ radial pulses bilaterally. 2+ posterior tibialis pulses bilaterally. 1+ bilateral lower extremity edema. No cyanosis. Results & Data Vital Signs (Past 12 Hours) Vital Signs Temp Pulse Pulse Resp BP Pulse Ox Pulse Ox 10/25/24 14:00 80 10/25/24 12:34 17 96 10/25/24 11:41 36.6 C 84 18 178/70 H 91 10/25/24 07:42 36.6 C 119 H 20 181/82 H 93 10/25/24 07:06 118 H 18 94 10/25/24 07:00 95 H 10/25/24 07:00 10/25/24 03:00 92 10/25/24 02:48 36.9 C 88 18 165/66 H 93 O2 Del Method O2 Del Method O2 Flow Rate O2 Flow Rate 10/25/24 14:00 10/25/24 12:34 Nasal Cannula 5 10/25/24 11:41 Nasal Cannula 10/25/24 07:42 Nasal Cannula 10/25/24 07:06 Nasal Cannula 5 10/25/24 07:00 10/25/24 07:00 Nasal Cannula 5 10/25/24 03:00 Nasal Cannula 5 10/25/24 02:48 Nasal Cannula 5 Intake & Output 10/23/24 10/24/24 10/25/24 10/26/24 06:59 06:59 06:59 06:59 Intake Total 2650.417 / 2650.417 4073.084 / 4073.084 2276.25 / 227. 320 / 320 Output Total 650 / 650 1900 / 1900 2351 / 2351 1401 / 1401 Balance 2000.417 / 2000.417 2173.084 / 2173.084 -74.75 / -74.75 -1081 / -1081 Weight 219 lb 2.232 oz 228 lb 9.91 oz 231 lb 11.293 oz Laboratory Results Laboratory Results - last 24 hr 10/24/24 10/24/24 10/25/24 16:01 23:26 07:13 WBC RBC Hgb Hct MCV MCH MCHC RDW Std Deviation RDW Coeff of Chauncey Plt Count MPV Sodium Potassium Chloride Carbon Dioxide Anion Gap BUN Creatinine Est Cr Clr Drug Dosing eGFR BUN/Creatinine Ratio Glucose POC Glucose 151 H Calcium Total Bilirubin AST ALT Alkaline Phosphatase Troponin I High Sens 55.4 H* 49.1 H Total Protein Albumin Globulin Albumin/Globulin Ratio Stl C. cayetanensis PCR Stool Rotavirus A PCR Stl Adenov F PCR Stool Astrovirus (PCR) Stool Campylobacter PCR Stool Cryptosporidium PCR Stl E.coli Shiga Tox PCR Stl Enterotoxigenic E PCR Stool EPEC (PCR) Stool EAEC (PCR) Stl E. histolytica PCR Stool Giardia Lamblia PCR Stool Salmonella PCR Stool Sapovirus (PCR) Stl P. shigelloides PCR Stl Shigella/EIEC PCR St Y.enterocolitica PCR Stool Vibrio (PCR) Stl Vibrio cholerae PCR Stl Norovirus GI/GII PCR 10/25/24 10/25/24 10/25/24 08:46 08:46 08:46 WBC 10.53 RBC 3.43 L Hgb 10.8 L Hct 33.0 L MCV 96.2 MCH 31.5 MCHC 32.7 RDW Std Deviation 48.4 H RDW Coeff of Chauncey 13.7 Plt Count 157 MPV 10.2 Sodium 141 141 Potassium 3.5 3.5 Chloride 102 Carbon Dioxide Anion Gap BUN Creatinine Est Cr Clr Drug Dosing eGFR BUN/Creatinine Ratio Glucose POC Glucose Calcium Total Bilirubin AST ALT Alkaline Phosphatase Troponin I High Sens Total Protein Albumin Globulin Albumin/Globulin Ratio Stl C. cayetanensis PCR Stool Rotavirus A PCR Stl Adenov F PCR Stool Astrovirus (PCR) Stool Campylobacter PCR Stool Cryptosporidium PCR Stl E.coli Shiga Tox PCR Stl Enterotoxigenic E PCR Stool EPEC (PCR) Stool EAEC (PCR) Stl E. histolytica PCR Stool Giardia Lamblia PCR Stool Salmonella PCR Stool Sapovirus (PCR) Stl P. shigelloides PCR Stl Shigella/EIEC PCR St Y.enterocolitica PCR Stool Vibrio (PCR) Stl Vibrio cholerae PCR Stl Norovirus GI/GII PCR 10/25/24 10/25/24 10/25/24 08:46 08:46 08:46 WBC RBC Hgb Hct MCV MCH MCHC RDW Std Deviation RDW Coeff of Chauncey Plt Count MPV Sodium Potassium Chloride 103 Carbon Dioxide 29 29 Anion Gap 10 9 BUN 27 H Creatinine Est Cr Clr Drug Dosing eGFR BUN/Creatinine Ratio Glucose POC Glucose Calcium Total Bilirubin AST ALT Alkaline Phosphatase Troponin I High Sens Total Protein Albumin Globulin Albumin/Globulin Ratio Stl C. cayetanensis PCR Stool Rotavirus A PCR Stl Adenov F 40/ PCR Stool Astrovirus (PCR) Stool Campylobacter PCR Stool Cryptosporidium PCR Stl E.coli Shiga Tox PCR Stl Enterotoxigenic E PCR Stool EPEC (PCR) Stool EAEC (PCR) Stl E. histolytica PCR Stool Giardia Lamblia PCR Stool Salmonella PCR Stool Sapovirus (PCR) Stl P. shigelloides PCR Stl Shigella/EIEC PCR St Y.enterocolitica PCR Stool Vibrio (PCR) Stl Vibrio cholerae PCR Stl Norovirus GI/GII PCR 10/25/24 10/25/24 10/25/24 08:46 08:46 08:46 WBC RBC Hgb Hct MCV MCH MCHC RDW Std Deviation RDW Coeff of Chauncey Plt Count MPV Sodium Potassium Chloride Carbon Dioxide Anion Gap BUN 27 H Creatinine 1.67 H 1.61 H Est Cr Clr Drug Dosing 31.5 32.7 eGFR 31.36 BUN/Creatinine Ratio Glucose POC Glucose Calcium Total Bilirubin AST ALT Alkaline Phosphatase Troponin I High Sens Total Protein Albumin Globulin Albumin/Globulin Ratio Stl C. cayetanensis PCR Stool Rotavirus A PCR Stl Adenov F PCR Stool Astrovirus (PCR) Stool Campylobacter PCR Stool Cryptosporidium PCR Stl E.coli Shiga Tox PCR Stl Enterotoxigenic E PCR Stool EPEC (PCR) Stool EAEC (PCR) Stl E. histolytica PCR Stool Giardia Lamblia PCR Stool Salmonella PCR Stool Sapovirus (PCR) Stl P. shigelloides PCR Stl Shigella/EIEC PCR St Y.enterocolitica PCR Stool Vibrio (PCR) Stl Vibrio cholerae PCR Stl Norovirus GI/GII PCR 10/25/24 10/25/24 10/25/24 08:46 08:46 08:46 WBC RBC Hgb Hct MCV MCH MCHC RDW Std Deviation RDW Coeff of Chauncey Plt Count MPV Sodium Potassium Chloride Carbon Dioxide Anion Gap BUN Creatinine Est Cr Clr Drug Dosing eGFR 32.77 BUN/Creatinine Ratio 16.2 16.8 Glucose 182 H 180 H POC Glucose Calcium 8.7 Total Bilirubin AST ALT Alkaline Phosphatase Troponin I High Sens Total Protein Albumin Globulin Albumin/Globulin Ratio Stl C. cayetanensis PCR Stool Rotavirus A PCR Stl Adenov F 40/ PCR Stool Astrovirus (PCR) Stool Campylobacter PCR Stool Cryptosporidium PCR Stl E.coli Shiga Tox PCR Stl Enterotoxigenic E PCR Stool EPEC (PCR) Stool EAEC (PCR) Stl E. histolytica PCR Stool Giardia Lamblia PCR Stool Salmonella PCR Stool Sapovirus (PCR) Stl P. shigelloides PCR Stl Shigella/EIEC PCR St Y.enterocolitica PCR Stool Vibrio (PCR) Stl Vibrio cholerae PCR Stl Norovirus GI/GII PCR 10/25/24 10/25/24 10/25/24 08:46 10:56 Unknown WBC RBC Hgb Hct MCV MCH MCHC RDW Std Deviation RDW Coeff of Chauncey Plt Count MPV Sodium Potassium Chloride Carbon Dioxide Anion Gap BUN Creatinine Est Cr Clr Drug Dosing eGFR BUN/Creatinine Ratio Glucose POC Glucose 150 H Calcium 8.7 Total Bilirubin 0.7 AST 29 ALT 25 Alkaline Phosphatase 52 Troponin I High Sens 41.8 H Total Protein 6.5 Albumin 3.5 Globulin 3.0 Albumin/Globulin Ratio 1.2 Stl C. cayetanensis PCR Not Detected Stool Rotavirus A PCR Not Detected Stl Adenov F 40/41 PCR Not Detected Stool Astrovirus (PCR) Not Detected Stool Campylobacter PCR Not Detected Stool Cryptosporidium PCR Not Detected Stl E.coli Shiga Tox PCR Not Detected Stl Enterotoxigenic E PCR Not Detected Stool EPEC (PCR) Not Detected Stool EAEC (PCR) Not Detected Stl E. histolytica PCR Not Detected Stool Giardia Lamblia PCR Not Detected Stool Salmonella PCR Not Detected Stool Sapovirus (PCR) Not Detected Stl P. shigelloides PCR Not Detected Stl Shigella/EIEC PCR Not Detected St Y.enterocolitica PCR Not Detected Stool Vibrio (PCR) Not Detected Stl Vibrio cholerae PCR Not Detected Stl Norovirus GI/GII PCR Not Detected Diagnostic Findings Telemetry personally reviewed: Predominantly sinus rhythm but episodes of sustained atrial tachycardia in the 120s. Labs reviewed and notable for abnormal but stable renal function, normal potassium, anemia. Normal transaminase levels. Medications Administered Current Inpatient Medications Acetaminophen (Acetaminophen 325 Mg Tab) 650 mg PO Q4H PRN PRN Reason: Pain or Fever Stop: 11/20/24 03:29 Albuterol (Albut/Ipratrop 3mg/0.5mg Neb 3 Ml Vial) 3 ml NEB Q6R [facility]; Protocol Stop: 11/22/24 12:59 Last Admin: 10/25/24 12:34 Dose: 3 ml Albuterol (Albuterol 0.5% Neb Soln 2.5 Mg/0.5 Ml Vial) 2.5 mg NEB Q6R PRN; Protocol PRN Reason: Shortness Of Breath Or Wheezing Stop: 11/22/24 12:59 Amlodipine Besylate (Amlodipine Besylate 5 Mg Tab) 10 mg PO DAILY [facility] Stop: 11/20/24 08:59 Last Admin: 10/25/24 08:15 Dose: 10 mg Aspirin (Aspirin 81 Mg Chew) 81 mg PO QAM [facility] Stop: 11/21/24 08:59 Last Admin: 10/25/24 08:14 Dose: 81 mg Budesonide (Budesonide 0.5 Mg/2 Ml Vial (Pulmicort)) 0.5 mg NEB BIDR [facility] Stop: 11/22/24 01:59 Last Admin: 10/25/24 07:05 Dose: 0.5 mg Carvedilol (Carvedilol 12.5 Mg Tab) 12.5 mg PO BID [facility] Stop: 11/20/24 08:59 Last Admin: 10/25/24 08:14 Dose: 12.5 mg Gabapentin (Gabapentin 300 Mg Cap) 300 mg PO BID [facility] Stop: 11/20/24 08:59 Last Admin: 10/25/24 08:15 Dose: 300 mg Heparin Sodium (Porcine) (Heparin Sod 5,000 Unit/0.5 Ml Vial) 5,000 units SQ Q8 [facility] Stop: 11/22/24 13:59 Last Admin: 10/25/24 14:29 Dose: Not Given Hydralazine HCl (Hydralazine Tab 50 Mg Tab) 50 mg PO TID [facility] Stop: 11/20/24 08:59 Last Admin: 10/25/24 14:00 Dose: 50 mg Hydralazine HCl (Hydralazine Hcl 20 Mg/Ml Vial) 10 mg IV Q4 PRN PRN Reason: sbp>185 or dbp>95 Stop: 11/24/24 11:23 Hydromorphone HCl (Hydromorphone Inj 0.5 Mg/0.5 Ml Syr) 0.25 mg IV Q3H PRN PRN Reason: Pain (1,2,3,4,5) & Pre PT Stop: 11/04/24 02:23 Last Admin: 10/25/24 01:49 Dose: 0.25 mg Hydromorphone HCl (Hydromorphone Inj 0.5 Mg/0.5 Ml Syr) 0.5 mg IV Q3H PRN PRN Reason: Pain (6,7,8,9,10) Stop: 11/04/24 02:23 Last Admin: 10/22/24 15:16 Dose: 0.5 mg Hydroxyzine HCl (Hydroxyzine Hcl 25 Mg Tab) 50 mg PO HS PRN PRN Reason: anxiety Stop: 11/20/24 03:29 Last Admin: 10/24/24 20:36 Dose: 50 mg Methylprednisolone 40 mg/ (Syringe) 0.64 mls @ 1.5 mls/min IV Q24H [facility] Stop: 11/22/24 20:59 Last Admin: 10/24/24 20:36 Dose: 1.5 mls/min Azithromycin (Zithromax) 500 mg in 255 mls @ 127.5 mls/hr IV Q24H [facility] Stop: 10/28/24 00:44 Last Infusion: 10/25/24 00:50 Dose: Infused Piperacillin Sod/Tazobactam Sod (Zosyn) 4.5 gm in 100 mls @ 25 mls/hr IV Q8H [facility]; Protocol Stop: 10/28/24 07:59 Last Infusion: 10/25/24 12:05 Dose: Infused Lactobacillus Acidophilus (Advanced Probiotic 625 Mg Capsule) 1,250 mg PO DAILY [facility] Stop: 11/24/24 08:59 Last Admin: 10/25/24 08:14 Dose: 1,250 mg Lamotrigine (Lamotrigine 100 Mg Tab) 100 mg PO DAILY [facility]; Protocol Stop: 11/20/24 08:59 Last Admin: 10/25/24 08:15 Dose: 100 mg Levothyroxine Sodium (Levothyroxine Sodium 50 Mcg Tablet) [facility] Stop: 11/20/24 06:29 Last Admin: 10/25/24 06:30 Dose: 50 mcg Melatonin (Melatonin 3 Mg Tab) 3 mg PO HS PRN PRN Reason: Sleep Stop: 11/20/24 03:29 Last Admin: 10/21/24 20:12 Dose: 3 mg Metoclopramide HCl (Metoclopramide Hcl Inj 5 Mg/Ml 2 Ml Vial) 10 mg IV Q6H PRN PRN Reason: Nausea Stop: 11/20/24 03:29 Ondansetron HCl (Ondansetron Inj 2 Mg/Ml 2 Ml Vial) 4 mg IV Q6H PRN PRN Reason: Nausea Stop: 11/20/24 03:29 Pantoprazole Sodium (Pantoprazole 40 Mg Tab) 40 mg PO QAM [facility] Stop: 11/22/24 09:29 Last Admin: 10/25/24 08:15 Dose: 40 mg Polyethylene Glycol (Polyethylene (Miralax) 17 Gm Pack) 17 gm PO DAILY PRN PRN Reason: Constipation Stop: 11/20/24 03:29 Sertraline HCl (Sertraline Hcl 100 Mg Tablet) 100 mg PO HS [facility] Stop: 11/20/24 20:59 Last Admin: 10/24/24 20:36 Dose: 100 mg PG Care Time/CCT Total # of Minutes Spent Total Time Spent with Patient: Total time spent is greater than 50% in coordination of care (as documented) at patient's floor/unit and/or counseling patient: Coding Level of Care Code 23357 SUB INP/OBS CARE 3/50MIN Diagnoses Elevated troponin R79.89 Paroxysmal SVT (supraventricular tachycardia) I47.10 HTN (hypertension) I10 Hypoxia R09.02
[2024-10-26 06:53] LABS: Hematocrit (blood only) 33.1 % (37.0-47.0); Hemoglobin 10.8 g/dl (12.0-16.0); Mean Corpuscular Hemoglobin 31.1 pg (25.0-34.0); Mean Corpuscular Volume 95.4 fL (80.0-100.0); Platelet Count 181 K/uL (130-400); RDW Standard Deviation 47.3 fL (36.4-46.3); Red Blood Count 3.47 M/uL (4.20-5.40); White Blood Count 10.58 K/ul (4.8-10.8)
[2024-10-26 07:12] LABS: Anion Gap 6.0 (3-11); Blood Urea Nitrogen 22.0 mg/dl (6-23); Calcium 8.5 mg/dl (8.6-10.3); Carbon Dioxide 35.0 mmol/L (21-32); Chloride 98.0 mmol/L (98-107); Creatinine Clr Calc Pharmacy 31.3 ml/min; Glucose 156.0 mg/dl (70-99(Fasting)); Potassium 3.7 mmol/L (3.5-5.1); Sodium 139.0 mmol/L (136-145)
--- NOTE | 2024-10-26 10:44 | Cardiology Progress Note ---
Date of Service October 26, 2024 Assessment & Plan (1) Elevated troponin: (2) Paroxysmal SVT (supraventricular tachycardia): (3) HTN (hypertension): (4) Hypoxia: Plan ASSESSMENT/PLAN: 1. Elevated troponin: She did not present with acute coronary syndrome. Likely due to demand ischemia in the setting of UTI and pneumonia. Treat underlying acute illnesses. If future symptoms concerning for ischemic heart disease, could consider ischemic evaluation, but would not pursue currently while hospitalized for acute infection. Workup could be considered in the outpatient setting for concerning symptoms. 2. Paroxysmal SVT/atrial tachycardia: Episodes noted on telemetry daily for the past 3 days. Longer episodes today. Possibly mildly symptomatic today but mostly asymptomatic. Episodes have been sustained at times. Carvedilol increased to 25 mg twice daily less than 24 hours ago. Continue current regimen for now. If still has significant burden, could replace amlodipine with diltiazem. 3. Hypertension: Blood pressure has been mostly hypertensive. Carvedilol titrated evening of 10/25/2024. Blood pressure may improve with further diuresis today. 4. UTI: As per primary hospitalist service. 5. Pneumonia: Concern for aspiration based on patient and family description of choking/coughing while eating. On antibiotics per hospitalist service. 6. Hypoxia: Net fluid balance had been quite positive throughout her hospital stay. She received Lasix for the milligrams on 04/27/2024 with reasonable urine output. Received an additional dose of Lasix 40 mg IV today. Continue to encourage net negative fluid balance. Monitor renal function and electrolytes. 7. Disposition: Cardiology will continue to follow. Please call with questions or concerns. Patient care communicated with primary hospitalist, Dr. Mathis. Admission and Anticipated Discharge Date Admission Date: October 21, 2024 Subjective Her breathing has improved but still has intermittent shortness of breath and orthopnea. She had more sustained atrial tachycardia today and reports that she may have felt some palpitations. She denies chest pain, syncope, near syncope, or bleeding such as melena, hematochezia, or hematuria. Her sister was present at the bedside. Physical Exam Physical Exam: Gen.: No acute distress. Alert. HEENT: Anicteric sclera. Neck: Thick/short neck. Cardiac: Regular. Normal rate. Normal S1-S2. No murmurs, rubs, or gallops. Pulmonary: Decreased breath sounds bilaterally with mild bibasilar crackles. Abdomen: Soft, nondistended, with normoactive bowel sounds. No bruits noted. Extremities: 2+ radial pulses bilaterally. 2+ posterior tibialis pulses bilaterally. Trace bilateral lower extremity edema. No cyanosis. Results & Data Vital Signs (Past 12 Hours) Vital Signs Temp Pulse Pulse Resp BP Pulse Ox Pulse Ox 10/26/24 08:04 36.8 C 129 H 24 146/81 H 97 10/26/24 07:26 28 H 95 10/26/24 07:25 26 H 95 10/26/24 07:19 124 H 10/26/24 07:19 10/26/24 04:08 36.7 C 112 H 19 151/84 H 97 10/26/24 03:40 120 H 38 H 96 10/26/24 03:00 95 10/26/24 00:30 110 H 20 94 10/25/24 23:18 103 H 26 H 94 O2 Del Method O2 Del Method O2 Flow Rate O2 Flow Rate FiO2 10/26/24 08:04 Nasal Cannula 5 10/26/24 07:26 30 10/26/24 07:25 BiPAP 30 10/26/24 07:19 10/26/24 07:19 Nasal Cannula 5 10/26/24 04:08 BiPAP 10/26/24 03:40 40 10/26/24 03:00 Nasal Cannula 5 10/26/24 00:30 BiPAP 50 10/25/24 23:18 Intake & Output 10/24/24 10/25/24 10/26/24 10/27/24 06:59 06:59 06:59 06:59 Intake Total 4073.084 / 4073.084 2276.25 / 2276.25 1200 / 1200 0 / 0 Output Total 1900 / 1900 2351 / 2351 3501 / 3501 Balance 2173.084 / 2173.084 -74.75 / -74.75 -2301 / -2301 0 / 0 Weight 228 lb 9.91 oz 231 lb 11.293 oz 222 lb 10.67 oz Laboratory Results Laboratory Results - last 24 hr 10/25/24 10/26/24 10:56 05:52 WBC 10.58 RBC 3.47 L Hgb 10.8 L Hct 33.1 L MCV 95.4 MCH 31.1 MCHC 32.6 RDW Std Deviation 47.3 H RDW Coeff of Chauncey 13.4 Plt Count 181 MPV 10.6 Absolute Nucleated RBC 0.02 Nucleated RBC % (auto) 0.2 Sodium 139 Potassium 3.7 Chloride 98 Carbon Dioxide 35 H Anion Gap 6 BUN 22 Creatinine 1.64 H Est Cr Clr Drug Dosing 31.3 eGFR 32.05 BUN/Creatinine Ratio 13.4 Glucose 156 H POC Glucose 150 H Calcium 8.5 L Diagnostic Findings On 10/26/2024, chart reviewed. Labs reviewed: Renal function abnormal but stable, normal potassium, stable hemoglobin. Medications Administered Current Inpatient Medications Acetaminophen (Acetaminophen 325 Mg Tab) 650 mg PO Q4H PRN PRN Reason: Pain or Fever Stop: 11/20/24 03:29 Albuterol (Albut/Ipratrop 3mg/0.5mg Neb 3 Ml Vial) 3 ml NEB Q6R [facility]; Protocol Stop: 11/22/24 12:59 Last Admin: 10/26/24 07:25 Dose: 3 ml Albuterol (Albuterol 0.5% Neb Soln 2.5 Mg/0.5 Ml Vial) 2.5 mg NEB Q6R [facility]; Protocol PRN Reason: Shortness Of Breath Or Wheezing Stop: 11/22/24 12:59 Amlodipine Besylate (Amlodipine Besylate 5 Mg Tab) 10 mg PO DAILY [facility] Stop: 11/20/24 08:59 Last Admin: 10/26/24 08:13 Dose: 10 mg Aspirin (Aspirin 81 Mg Chew) 81 mg PO QAM [facility] Stop: 11/21/24 08:59 Last Admin: 10/26/24 08:13 Dose: 81 mg Budesonide (Budesonide 0.5 Mg/2 Ml Vial (Pulmicort)) 0.5 mg NEB BIDR [facility] Stop: 11/22/24 01:59 Last Admin: 10/26/24 07:25 Dose: 0.5 mg Carvedilol (Carvedilol 25 Mg Tab) 25 mg PO BID [facility] Stop: 11/24/24 20:59 Last Admin: 10/26/24 08:58 Dose: 25 mg Gabapentin (Gabapentin 300 Mg Cap) 300 mg PO BID [facility] Stop: 11/20/24 08:59 Last Admin: 10/26/24 08:14 Dose: 300 mg Guaifenesin/Dextromethorphan (Guaifenesin/Dextrom Syrup 200mg/20mg 10ml Udc) 10 ml PO Q6H PRN PRN Reason: Cough Stop: 11/24/24 22:51 Last Admin: 10/25/24 23:40 Dose: 10 ml Heparin Sodium (Porcine) (Heparin Sod 5,000 Unit/0.5 Ml Vial) 5,000 units SQ Q8 [facility] Stop: 11/22/24 13:59 Last Admin: 10/26/24 06:01 Dose: 5,000 units Hydralazine HCl (Hydralazine Tab 50 Mg Tab) 50 mg PO TID [facility] Stop: 11/20/24 08:59 Last Admin: 10/26/24 08:14 Dose: 50 mg Hydralazine HCl (Hydralazine Hcl 20 Mg/Ml Vial) 10 mg IV Q4 PRN PRN Reason: sbp>185 or dbp>95 Stop: 11/24/24 11:23 Hydromorphone HCl (Hydromorphone Inj 0.5 Mg/0.5 Ml Syr) 0.25 mg IV Q3H PRN PRN Reason: Pain (1,2,3,4,5) & Pre PT Stop: 11/04/24 02:23 Last Admin: 10/25/24 01:49 Dose: 0.25 mg Hydromorphone HCl (Hydromorphone Inj 0.5 Mg/0.5 Ml Syr) 0.5 mg IV Q3H PRN PRN Reason: Pain (6,7,8,9,10) Stop: 11/04/24 02:23 Last Admin: 10/22/24 15:16 Dose: 0.5 mg Hydroxyzine HCl (Hydroxyzine Hcl 25 Mg Tab) 50 mg PO HS PRN PRN Reason: anxiety Stop: 11/20/24 03:29 Last Admin: 10/24/24 20:36 Dose: 50 mg Methylprednisolone 40 mg/ (Syringe) 0.64 mls @ 1.5 mls/min IV Q24H [facility] Stop: 11/22/24 20:59 Last Admin: 10/25/24 20:04 Dose: 1.5 mls/min Azithromycin (Zithromax) 500 mg in 255 mls @ 127.5 mls/hr IV Q24H [facility] Stop: 10/28/24 00:44 Last Infusion: 10/26/24 00:30 Dose: Infused Piperacillin Sod/Tazobactam Sod (Zosyn) 4.5 gm in 100 mls @ 25 mls/hr IV Q8H [facility]; Protocol Stop: 10/28/24 07:59 Last Admin: 10/26/24 08:19 Dose: 25 mls/hr Lactobacillus Acidophilus (Advanced Probiotic 625 Mg Capsule) 1,250 mg PO DAILY [facility] Stop: 11/24/24 08:59 Last Admin: 10/26/24 08:14 Dose: 1,250 mg Lamotrigine (Lamotrigine 100 Mg Tab) 100 mg PO DAILY [facility]; Protocol Stop: 11/20/24 08:59 Last Admin: 10/26/24 08:14 Dose: 100 mg Levothyroxine Sodium (Levothyroxine Sodium 50 Mcg Tablet) 50 mcg PO DAILYBB [facility] Stop: 11/20/24 06:29 Last Admin: 10/26/24 06:01 Dose: 50 mcg Melatonin (Melatonin 3 Mg Tab) 3 mg PO HS PRN PRN Reason: Sleep Stop: 11/20/24 03:29 Last Admin: 10/21/24 20:12 Dose: 3 mg Metoclopramide HCl (Metoclopramide Hcl Inj 5 Mg/Ml 2 Ml Vial) 10 mg IV Q6H PRN PRN Reason: Nausea Stop: 11/20/24 03:29 Ondansetron HCl (Ondansetron Inj 2 Mg/Ml 2 Ml Vial) 4 mg IV Q6H PRN PRN Reason: Nausea Stop: 11/20/24 03:29 Pantoprazole Sodium (Pantoprazole 40 Mg Tab) 40 mg PO QAM [facility] Stop: 11/22/24 09:29 Last Admin: 10/26/24 08:15 Dose: 40 mg Polyethylene Glycol (Polyethylene (Miralax) 17 Gm Pack) 17 gm PO DAILY PRN PRN Reason: Constipation Stop: 11/20/24 03:29 Sertraline HCl (Sertraline Hcl 100 Mg Tablet) 100 mg PO HS [facility] Stop: 11/20/24 20:59 Last Admin: 10/25/24 20:04 Dose: 100 mg PG Care Time/CCT Total # of Minutes Spent Total Time Spent with Patient: Total time spent is greater than 50% in coordination of care (as documented) at patient's floor/unit and/or counseling patient: Coding Level of Care Code 69771 SUB INP/OBS CARE 3/50MIN Diagnoses Elevated troponin R79.89 Paroxysmal SVT (supraventricular tachycardia) I47.10 HTN (hypertension) I10 Hypoxia R09.02
--- NOTE | 2024-10-26 10:52 | Hospitalist Progress Note ---
Date of Service October 26, 2024 Assessment & Plan (1) UTI (urinary tract infection): (2) Urolithiasis: (3) CKD (chronic kidney disease): Plan 79-year-old female PMHx hypothyroidism, MAXIMILIANO, CKD, generalized weakness, MDD, GERD, and HTN presenting for LLQ abdominal pain with associated N/V/D starting the day of arrival. ED evaluation reveals CBC with leukocytosis 11.72, stable H&H; CMP creatinine 1.62, glucose 138; lactate 2.4, pending repeat s/p fluids; UA positive for infection; CTAP L kidney with mild hydronephrosis and hydroureter to the obstructing calculus of 2 mm involving L lower ureter, 12 mm proximal to the vesicular ureteral junction, few hyperdense foci noted within th e calyx of bilateral kidneys, fat-containing supraumbilical hernia #Hospital-acquired pneumonia CTA with multi lobar opacities and small effusions Respiratory infectious workup negative. MRSA screen negative Pulmonary toilet as needed Antibiotics broadened 10/23 to empirical IV Zosyn and azithromycin x 7 to 10 days #Rule out dysphagia Aspiration precautions ST evaluation #Asthma exacerbation VBG with mild hypercapnia Steroids taper as tolerated. Bronchodilators May benefit from outpatient pulmonary referral #Acute hypoxic respiratory failure BiPAP at bedtime/as needed. Wean O2 #ELLY on CKD Improving Follows with nephro for CKD, baseline Cr 1.5-2.2 Avoid nephrotoxic meds IV fluids Taper to oral intake Renal ultrasound Unrevealing #urolithiasis obstructing calculus 2mm in the left lower ureter resulting in mild hydronephrosis and hydroureter. UA suggestive of infection. Prior cultures with puga-sensitive Klebsiella and puga-sensitive E. coli. CTAP L kidney with minor hydronephrosis and hydroureter to the obstructing 2 mm calculus involving L lower ureter, 12 mm proximal to vesicular ureteral junction Supportive care Strain urine Status post left stent 10/21. Urology cleared for discharge follow-up outpatient For stone removal Once infection resolved #Klebsiella UTI Pansensitive Continue antibiotics as above #Elevated troponins likely type II MII in setting of above EKG nonischemic. TNI is flat TTE unrevealing Cardiology consulted they have no further input. 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 ASA. #Generalized weakness PT OT GI steroid prophylaxis DVT prophylaxis Dispo discharge rehab in 2 to 3 days once weaned off O2 and after adequate course of IV antibiotics This document was dictated utilizing [employer]. Please excuse any grammatical errors that may be secondary to use of this software. Admission and Anticipated Discharge Date Admission Date: October 21, 2024 Subjective Doing very well in good spirits. Breathing continues to improve. No fevers chills cough or any other symptoms. Urinated a lot after getting Lasix yesterday I's and O's and weight trends coming down. Giving another Lasix 40 IV times once. Bicarb also elevated. Giving Diamox x 1 Discussed with RN Discussed with wild animal caretaker yesterday appreciate his expertise Review of Systems Constitutional: as per Subjective / HPI Genitourinary: as per Subjective / HPI Physical Exam Physical Exam: General: No acute distress Skin: Warm and dry Head: Normocephalic, atraumatic Eyes: PERRL, conjunctivae clear, sclera non-icteric ENT: External ear and ear canal without swelling; nose atraumatic; good dentition, tongue normal appearance, pharynx normal Neck: Supple, no LAD Cardio: s1 s2+ Resp: Air entry bilaterally scattered wheeze Abdomen: Soft, symmetric,Nontender MSK: No deformities; pulses palpable and equal; trace pitting edema BLE Neuro: Awake, alert; Sensation intact bilaterally; CN grossly intact Psych:Appropriate mood and affect; good judgement and insight. Results & Data Results & Data Vital Signs (Past 12 Hours) Vital Signs Temp Pulse Pulse Resp BP Pulse Ox Pulse Ox 10/26/24 08:04 36.8 C 129 H 24 146/81 H 97 10/26/24 07:26 28 H 95 10/26/24 07:25 26 H 95 10/26/24 07:19 124 H 10/26/24 07:19 10/26/24 04:08 36.7 C 112 H 19 151/84 H 97 10/26/24 03:40 120 H 38 H 96 10/26/24 03:00 95 10/26/24 00:30 110 H 20 94 10/25/24 23:18 103 H 26 H 94 O2 Del Method O2 Del Method O2 Flow Rate O2 Flow Rate FiO2 10/26/24 08:04 Nasal Cannula 5 10/26/24 07:26 30 10/26/24 07:25 BiPAP 30 10/26/24 07:19 10/26/24 07:19 Nasal Cannula 5 10/26/24 04:08 BiPAP 10/26/24 03:40 40 10/26/24 03:00 Nasal Cannula 5 10/26/24 00:30 BiPAP 50 10/25/24 23:18 Laboratory Results Abnormal Labs 10/20/24 10/20/24 10/21/24 22:00 22:47 00:59 WBC 11.71 H RBC 4.03 L Hgb Hct MCHC RDW Std Deviation 47.4 H Plt Count Neut # (Auto) 9.84 H Lymph # (Auto) 1.06 L [place] # (Auto) Immature Gran # (Auto) VBG pH VBG pCO2 Carbon Dioxide BUN Creatinine 1.62 H Glucose 138 H POC Glucose Lactate 2.4 H* Calcium Troponin I High Sens Procalcitonin Urine Appearance Urine Protein 3+ H Urine Ketones Trace H Urine Blood Urine Nitrite Positive A Ur Leukocyte Esterase 1+ H Urine WBC (Auto) 21-50 H Urine RBC (Auto) U Hyaline Cast (Auto) Urine Bacteria (Auto) 4+ H 10/22/24 10/22/24 10/22/24 21:08 23:00 23:01 WBC 17.87 H RBC 3.25 L Hgb 10.5 L Hct 32.5 L MCHC RDW Std Deviation 52.7 H Plt Count Neut # (Auto) 14.52 H Lymph # (Auto) [place] # (Auto) 0.98 H Immature Gran # (Auto) 0.65 H VBG pH 7.28 L 7.31 L VBG pCO2 56 H 51 H Carbon Dioxide BUN 38 H Creatinine 2.46 H D Glucose 118 H POC Glucose Lactate Calcium 8.5 L Troponin I High Sens 45.9 H Procalcitonin 17.80 H Urine Appearance Urine Protein Urine Ketones Urine Blood Urine Nitrite Ur Leukocyte Esterase Urine WBC (Auto) Urine RBC (Auto) U Hyaline Cast (Auto) Urine Bacteria (Auto) 10/23/24 10/23/24 10/23/24 01:10 05:44 07:49 WBC 16.70 H RBC 3.41 L Hgb 10.6 L Hct 33.4 L MCHC 31.7 L RDW Std Deviation 50.2 H Plt Count 128 L Neut # (Auto) Lymph # (Auto) [place] # (Auto) Immature Gran # (Auto) VBG pH 7.34 L VBG pCO2 Carbon Dioxide BUN 36 H Creatinine 2.14 H D Glucose 185 H POC Glucose Lactate Calcium 8.3 L Troponin I High Sens 88.0 H* D 98.2 H* D Procalcitonin Urine Appearance Urine Protein Urine Ketones Urine Blood Urine Nitrite Ur Leukocyte Esterase Urine WBC (Auto) Urine RBC (Auto) U Hyaline Cast (Auto) Urine Bacteria (Auto) 10/23/24 10/23/24 10/23/24 15:22 23:50 Unknown WBC RBC Hgb Hct MCHC RDW Std Deviation Plt Count Neut # (Auto) Lymph # (Auto) [place] # (Auto) Immature Gran # (Auto) VBG pH VBG pCO2 Carbon Dioxide BUN Creatinine Glucose POC Glucose Lactate Calcium Troponin I High Sens 97.4 H* 108.5 H* Procalcitonin Urine Appearance Cloudy A Urine Protein 1+ H Urine Ketones Urine Blood 3+ H Urine Nitrite Ur Leukocyte Esterase 2+ H Urine WBC (Auto) 21-50 H Urine RBC (Auto) >20 H U Hyaline Cast (Auto) 3-5 H Urine Bacteria (Auto) 10/24/24 10/24/24 10/24/24 07:45 16:01 23:26 WBC 10.92 H RBC 3.14 L Hgb 9.9 L Hct 30.1 L MCHC RDW Std Deviation 48.1 H Plt Count 128 L Neut # (Auto) Lymph # (Auto) [place] # (Auto) Immature Gran # (Auto) VBG pH VBG pCO2 Carbon Dioxide BUN 28 H Creatinine 1.75 H D Glucose 160 H POC Glucose Lactate Calcium 8.4 L Troponin I High Sens 58.3 H* D 55.4 H* 49.1 H Procalcitonin Urine Appearance Urine Protein Urine Ketones Urine Blood Urine Nitrite Ur Leukocyte Esterase Urine WBC (Auto) Urine RBC (Auto) U Hyaline Cast (Auto) Urine Bacteria (Auto) 10/25/24 10/25/24 10/25/24 07:13 08:46 08:46 WBC RBC 3.43 L Hgb 10.8 L Hct 33.0 L MCHC RDW Std Deviation 48.4 H Plt Count Neut # (Auto) Lymph # (Auto) [place] # (Auto) Immature Gran # (Auto) VBG pH VBG pCO2 Carbon Dioxide BUN 27 H 27 H Creatinine 1.67 H Glucose POC Glucose 151 H Lactate Calcium Troponin I High Sens Procalcitonin Urine Appearance Urine Protein Urine Ketones Urine Blood Urine Nitrite Ur Leukocyte Esterase Urine WBC (Auto) Urine RBC (Auto) U Hyaline Cast (Auto) Urine Bacteria (Auto) 10/25/24 10/25/24 10/25/24 08:46 08:46 10:56 WBC RBC Hgb Hct MCHC RDW Std Deviation Plt Count Neut # (Auto) Lymph # (Auto) [place] # (Auto) Immature Gran # (Auto) VBG pH VBG pCO2 Carbon Dioxide BUN Creatinine 1.61 H Glucose 182 H 180 H POC Glucose 150 H Lactate Calcium Troponin I High Sens 41.8 H Procalcitonin Urine Appearance Urine Protein Urine Ketones Urine Blood Urine Nitrite Ur Leukocyte Esterase Urine WBC (Auto) Urine RBC (Auto) U Hyaline Cast (Auto) Urine Bacteria (Auto) 10/26/24 05:52 WBC RBC 3.47 L Hgb 10.8 L Hct 33.1 L MCHC RDW Std Deviation 47.3 H Plt Count Neut # (Auto) Lymph # (Auto) [place] # (Auto) Immature Gran # (Auto) VBG pH VBG pCO2 Carbon Dioxide 35 H BUN Creatinine 1.64 H Glucose 156 H POC Glucose Lactate Calcium 8.5 L Troponin I High Sens Procalcitonin Urine Appearance Urine Protein Urine Ketones Urine Blood Urine Nitrite Ur Leukocyte Esterase Urine WBC (Auto) Urine RBC (Auto) U Hyaline Cast (Auto) Urine Bacteria (Auto) Diagnostic Findings Abdomen/Pelvis CT 10/20/24 22:07 EXAM: CT abd pelvis IV con only CLINICAL HISTORY: LLQ pain TECHNIQUE: Contiguous axial images were obtained from the level of the diaphragm to the pubic symphysis with intravenous contrast. Coronal and sagittal reconstructions were likewise performed and indicated to increase the sensitivity for detecting clinically relevant pathology. If IV contrast material had not been administered, the likelihood of detecting abnormalities relevant to the patient's condition would have been substantially decreased. CT scan was performed according to ALARA (as low as reasonable achievable). COMPARISON: Oct 15:31:34 [employer] TE[employer]ER FINDINGS: The visualized lung bases are clear. Sliding hiatus hernia noted. The liver is normal in size and attenuation. No focal liver lesions are seen. There is no intra or extrahepatic biliary ductal dilatation. Hepatic vasculature is patent. The gallbladder is removed. The spleen, pancreas, and adrenal glands are unremarkable. The kidneys are normal in size and attenuation. There is no hydronephrosis or perinephric fat stranding. About 44 x 22 mm sized cortical cysts noted involving right kidney - Bosniak type I . Left kidney shows mild hydronephrosis and hydroureter up to an obstructing calculus of size 2 mm involving left lower ureter, 12 mm proximal to vesicoureteric junction. Few hyperdense foci are noted within the calyx of bilateral kidneys- possibility of excreted contrast /calculi ( kindly correlate with non contrast study). The ureters are normal in caliber and no ureteral calculi are seen. The bladder is normal in contour. Pelvic viscera are unremarkable. No focal or diffuse bowel wall thickening or evidence of bowel obstruction is identified. The appendix is visualized in the right lower quadrant and appears within normal limits. Abdominal and pelvic vasculature is patent. No adenopathy or fluid collections are seen. No aggressive appearing osseous lesions are identified. Fat containing supraumbilical hernia. IMPRESSION: 1. Left kidney shows mild hydronephrosis and hydroureter up to an obstructing calculus of size 2 mm involving left lower ureter, 12 mm proximal to vesicoureteric junction.-new finding. 2. Few hyperdense foci are noted within the calyx of bilateral kidneys- possibility of excreted contrast /calculi ( kindly correlate with non contrast study). 3. Fat containing supraumbilical hernia.-stable. Electronically signed by Edwar Moore 10-21-2024 01:29 AM Retrograde Pyelogram 10/21/24 00:00 FL retrograde includes kub CLINICAL HISTORY: LEFT SIDED CYSTO COMPARISON STUDY: None FLUOROSCOPY TIME: 10 seconds FLUOROSCOPY IMAGES: 3 EXPOSURE DOSE: 3.5 mGy FINDINGS: Fluoroscopy was provided for urologic procedure. IMPRESSION: Intraoperative fluoroscopy. ACT 112: Negative or not required by law. Electronically signed by: Trung Jain M.D. 10/21/2024 2:12 PM Chest X-Ray 10/22/24 20:59 Exam(s): XR CXR 1 VIEW EXAM: XR Chest, 1 View CLINICAL HISTORY: Reason for exam: Chest pain, SOB. TECHNIQUE: Frontal view of the chest. COMPARISON: 11/21/2021 FINDINGS: Lungs: Patchy airspace opacities in the lungs bilaterally right greater than left with septal thickening. Pleural space: No pleural effusion. No pneumothorax. Heart: Unremarkable. No cardiomegaly. Bones/joints: Right shoulder prosthesis. IMPRESSION: Patchy airspace opacities in the lungs bilaterally right greater than left with septal thickening. Differential of pulmonary edema versus multifocal infection. Electronically signed by: Christiano Avina MD 10/22/24 21:43 PM Chest CTA 10/23/24 01:36 EXAM: CT angio chest PE protocol CLINICAL HISTORY: PE TECHNIQUE: Contiguous axial images were obtained from the neck base through the upper abdomen following intravenous administration of iodinated contrast material. Angiographic images were processed, 3D MIP images were acquired for interpretation. If IV contrast material had not been administered, the likelihood of detecting abnormalities relevant to the patient's condition would have been substantially decreased. Coronal and sagittal 3-D MIPs were likewise performed and indicated to increase the sensitivity of detectin diffuse clinically relevant pathology. CT scan was performed according to ALARA (as low as reasonable achievable). COMPARISON: None. FINDINGS: Multifocal patchy consolidations are noted involving bilateral lung; predominantly right upper and lower lobe. Mild bilateral pleural effusion with basal subsegmental collapse of both lower lobes are seen Adequate contrast bolus without evidence of pulmonary embolism. The central airways are patent. The heart, aorta, and pulmonary arteries are of normal size and configuration. There are coronary artery and aortic atherosclerotic calcifications. No pericardial effusion is identified. The thyroid is unremarkable. No mediastinal, hilar, or axillary lymphadenopathy is noted. No suspicious lytic or sclerotic osseous lesions are identified. IMPRESSION: No evidence of pulmonary embolism Multifocal patchy consolidations are noted involving bilateral lung; predominantly right upper and lower lobe. Mild bilateral pleural effusion with basal subsegmental collapse of both lower lobes are seen Electronically signed by Edwar Moore 10-23-2024 03:24 AM Renal Ultrasound 10/23/24 11:00 RENAL ULTRASOUND HISTORY: elly COMPARISON: 06/08/2022 FINDINGS: Exam is limited by patient inability to cooperate. Right kidney measures 9 x 4 cm. Left kidney measures 9 x 5 cm. There is no hydronephrosis bilaterally. There are a few cysts of the kidneys, largest measuring 3 cm at the right kidney. There is a possible 1 cm stone mid left kidney. There is mild renal cortical thinning. Urinary bladder is decompressed and not well evaluated. IMPRESSION: No hydronephrosis. ACT 112: Negative or not required by law. Electronically signed by: Trung Jain M.D. 10/23/2024 11:37 AM PG Care Time/CCT Total # of Minutes Spent Total Time Spent with Patient: Total time spent is greater than 50% in coordination of care (as documented) at patient's floor/unit and/or counseling patient: Coding Level of Care Code 84932 SUB INP/OBS CARE 2/35MIN Diagnoses UTI (urinary tract infection) N39.0 Urolithiasis N20.9 CKD (chronic kidney disease) N18.9
[2024-10-26] MEDS: FUROSEMIDE 40 MG/4 ML VIAL IV ONE (11:21)
[2024-10-26] MEDS: acetaZOLAMIDE 250 MG in SYRINGE 0 ML IV STA (11:35)
--- NOTE | 2024-10-26 12:23 | Fluoroscopy Report ---
FL video swallow CLINICAL HISTORY: r/o aspiration. TECHNIQUE: Video fluoroscopic evaluation of swallowing was performed in the AP and lateral projection s by the speech pathology staff. The patient is fed nectar-thick and thin liquid barium, a barium coa thu wafer, and barium pudding. FLUOROSCOPY TIME: 1 minute 49 seconds. COMPARISON: None FINDINGS: No aspiration seen with any barium consistency. There is reduced esophageal motility and ga stroesophageal reflux. IMPRESSION: No aspiration seen. ACT 112: Negative or not required by law. Electronically signed by: Trung Jain M.D. 10/26/2024 12:21 PM
--- NOTE | 2024-10-27 05:59 | Electrocardiogram Report ---
Test Reason : Blood Pressure : */* mmHG Vent. Rate : 122 BPM Atrial Rate : 122 BPM P-R Int : 202 ms QRS Dur : 92 ms QT Int : 282 ms P-R-T Axes : -20 18 49 degrees QTcB Int : 401 ms Possible Atrial tachycardia Nonspecific ST and T wave abnormality Abnormal ECG When compared with ECG of 22-Oct-2024 21:01, T wave inversion now evident in Lateral leads Confirmed by Rhys Posada ([id number]) on 10/27/2024 5:59:16 AM Referred By: REFERRED SELF Confirmed By: Rhys Posada
--- NOTE | 2024-10-27 06:00 | Electrocardiogram Report ---
Test Reason : Blood Pressure : */* mmHG Vent. Rate : 129 BPM Atrial Rate : 129 BPM P-R Int : 152 ms QRS Dur : 98 ms QT Int : 276 ms P-R-T Axes : * 11 92 degrees QTcB Int : 404 ms Poor data quality, interpretation may be adversely affected Possible Atrial tachycardia Nonspecific ST and T wave abnormality Abnormal ECG When compared with ECG of 25-Oct-2024 07:00, No significant change was found Confirmed by Rhys Posada ([id number]) on 10/27/2024 5:59:53 AM Referred By: REFERRED SELF Confirmed By: Rhys Posada
[2024-10-27 07:22] LABS: Hematocrit (blood only) 30.1 % (37.0-47.0); Hemoglobin 9.8 g/dl (12.0-16.0); Mean Corpuscular Hemoglobin 31.3 pg (25.0-34.0); Mean Corpuscular Volume 96.2 fL (80.0-100.0); Platelet Count 174 K/uL (130-400); RDW Standard Deviation 48.8 fL (36.4-46.3); Red Blood Count 3.13 M/uL (4.20-5.40); White Blood Count 8.90 K/ul (4.8-10.8)
[2024-10-27 08:51] LABS: Anion Gap 8.0 (3-11); Blood Urea Nitrogen 29.0 mg/dl (6-23); Calcium 8.2 mg/dl (8.6-10.3); Carbon Dioxide 34.0 mmol/L (21-32); Chloride 100.0 mmol/L (98-107); Creatinine Clr Calc Pharmacy 23.3 ml/min; Glucose 154.0 mg/dl (70-99(Fasting)); Potassium 3.7 mmol/L (3.5-5.1); Sodium 142.0 mmol/L (136-145)
--- NOTE | 2024-10-27 10:28 | Hospitalist Progress Note ---
Date of Service October 27, 2024 Assessment & Plan (1) UTI (urinary tract infection): (2) Urolithiasis: (3) CKD (chronic kidney disease): Plan 79-year-old female PMHx hypothyroidism, MAXIMILIANO, CKD, generalized weakness, MDD, GERD, and HTN presenting for LLQ abdominal pain with associated N/V/D starting the day of arrival. ED evaluation reveals CBC with leukocytosis 11.72, stable H&H; CMP creatinine 1.62, glucose 138; lactate 2.4, pending repeat s/p fluids; UA positive for infection; CTAP L kidney with mild hydronephrosis and hydroureter to the obstructing calculus of 2 mm involving L lower ureter, 12 mm proximal to the vesicular ureteral junction, few hyperdense foci noted within th e calyx of bilateral kidneys, fat-containing supraumbilical hernia #Hospital-acquired pneumonia CTA with multi lobar opacities and small effusions Respiratory infectious workup negative. MRSA screen negative Pulmonary toilet as needed Antibiotics broadened 10/23 to empirical IV Zosyn and azithromycin x 7 to 10 days #Rule out dysphagia Aspiration precautions ST evaluation #Asthma exacerbation VBG with mild hypercapnia Steroids taper as tolerated. Bronchodilators May benefit from outpatient pulmonary referral #Acute hypoxic respiratory failure BiPAP at bedtime/as needed. Wean O2 #ELLY on CKD Improving Follows with nephro for CKD, baseline Cr 1.5-2.2 Avoid nephrotoxic meds IV fluids Taper to oral intake Renal ultrasound Unrevealing #urolithiasis obstructing calculus 2mm in the left lower ureter resulting in mild hydronephrosis and hydroureter. UA suggestive of infection. Prior cultures with puga-sensitive Klebsiella and puga-sensitive E. coli. CTAP L kidney with minor hydronephrosis and hydroureter to the obstructing 2 mm calculus involving L lower ureter, 12 mm proximal to vesicular ureteral junction Supportive care Strain urine Status post left stent 10/21. Urology cleared for discharge follow-up outpatient For stone removal Once infection resolved #Klebsiella UTI Pansensitive Continue antibiotics as above #Elevated troponins likely type II MII in setting of above EKG nonischemic. TNI is flat TTE unrevealing Cardiology consulted they have no further input. Can consider outpatient ischemic workup #Paroxysmal SVT/atrial tachycardia beta benson increased by cardiology. 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 ASA. #Generalized weakness PT OT GI steroid prophylaxis DVT prophylaxis Dispo discharge Rehab once bed available This document was dictated utilizing [email or web address]. Please excuse any grammatical errors that may be secondary to use of this software. Admission and Anticipated Discharge Date Admission Date: October 21, 2024 Subjective Doing very well in good spirits now down to 1 L O2. Sitting up in chair tells me breathing continues to improve. No chest pain nausea lightheadedness or any other symptoms Discussed with director work yesterday he is considering switching Norvasc to Diltiazem Renal function worse today. She has diuresed pretty well with Lasix over the past couple days. Weight coming down I's and O's remain negative. Will Hold off on further Lasix today Review of Systems Constitutional: as per Subjective / HPI Genitourinary: as per Subjective / HPI Physical Exam Physical Exam: General: No acute distress Skin: Warm and dry Head: Normocephalic, atraumatic Eyes: PERRL, conjunctivae clear, sclera non-icteric ENT: External ear and ear canal without swelling; nose atraumatic; good dentition, tongue normal appearance, pharynx normal Neck: Supple, no LAD Cardio: s1 s2+ Resp: Air entry bilaterally scattered wheeze Abdomen: Soft, symmetric,Nontender MSK: No deformities; pulses palpable and equal; trace pitting edema BLE Neuro: Awake, alert; Sensation intact bilaterally; CN grossly intact Psych:Appropriate mood and affect; good judgement and insight. Results & Data Results & Data Vital Signs (Past 12 Hours) Vital Signs Temp Pulse Pulse Pulse Resp BP Pulse Ox 10/27/24 10:15 93 10/27/24 08:00 36.8 C 101 H 18 132/65 92 10/27/24 07:36 64 10/27/24 07:36 10/27/24 07:12 74 15 94 10/27/24 03:11 36.8 C 109 H 19 163/80 H 96 10/27/24 03:00 10/27/24 00:21 104 H 18 95 10/27/24 00:02 10/26/24 23:25 110 H 29 H 95 10/26/24 23:13 36.7 C 112 H 19 141/65 H 92 Pulse Ox O2 Del Method O2 Del Method O2 Flow Rate O2 Flow Rate FiO2 10/27/24 10:15 Room Air 10/27/24 08:00 Nasal Cannula 1 10/27/24 07:36 10/27/24 07:36 Nasal Cannula 1 10/27/24 07:12 Nasal Cannula 2 10/27/24 03:11 Nasal Cannula 2 10/27/24 03:00 94 Nasal Cannula 2 10/27/24 00:21 Nasal Cannula 2 10/27/24 00:02 Nasal Cannula 2 10/26/24 23:25 30 10/26/24 23:13 Nasal Cannula 2 Laboratory Results Abnormal Labs 10/20/24 10/20/24 10/21/24 22:00 22:47 00:59 WBC 11.71 H RBC 4.03 L Hgb Hct MCHC RDW Std Deviation 47.4 H Plt Count Neut # (Auto) 9.84 H Lymph # (Auto) 1.06 L Island # (Auto) Immature Gran # (Auto) VBG pH VBG pCO2 Carbon Dioxide BUN Creatinine 1.62 H Glucose 138 H POC Glucose Lactate 2.4 H* Calcium Troponin I High Sens Procalcitonin Urine Appearance Urine Protein 3+ H Urine Ketones Trace H Urine Blood Urine Nitrite Positive A Ur Leukocyte Esterase 1+ H Urine WBC (Auto) 21-50 H Urine RBC (Auto) U Hyaline Cast (Auto) Urine Bacteria (Auto) 4+ H 10/22/24 10/22/24 10/22/24 21:08 23:00 23:01 WBC 17.87 H RBC 3.25 L Hgb 10.5 L Hct 32.5 L MCHC RDW Std Deviation 52.7 H Plt Count Neut # (Auto) 14.52 H Lymph # (Auto) Island # (Auto) 0.98 H Immature Gran # (Auto) 0.65 H VBG pH 7.28 L 7.31 L VBG pCO2 56 H 51 H Carbon Dioxide BUN 38 H Creatinine 2.46 H D Glucose 118 H POC Glucose Lactate Calcium 8.5 L Troponin I High Sens 45.9 H Procalcitonin 17.80 H Urine Appearance Urine Protein Urine Ketones Urine Blood Urine Nitrite Ur Leukocyte Esterase Urine WBC (Auto) Urine RBC (Auto) U Hyaline Cast (Auto) Urine Bacteria (Auto) 10/23/24 10/23/24 10/23/24 01:10 05:44 07:49 WBC 16.70 H RBC 3.41 L Hgb 10.6 L Hct 33.4 L MCHC 31.7 L RDW Std Deviation 50.2 H Plt Count 128 L Neut # (Auto) Lymph # (Auto) Island # (Auto) Immature Gran # (Auto) VBG pH 7.34 L VBG pCO2 Carbon Dioxide BUN 36 H Creatinine 2.14 H D Glucose 185 H POC Glucose Lactate Calcium 8.3 L Troponin I High Sens 88.0 H* D 98.2 H* D Procalcitonin Urine Appearance Urine Protein Urine Ketones Urine Blood Urine Nitrite Ur Leukocyte Esterase Urine WBC (Auto) Urine RBC (Auto) U Hyaline Cast (Auto) Urine Bacteria (Auto) 10/23/24 10/23/24 10/23/24 15:22 23:50 Unknown WBC RBC Hgb Hct MCHC RDW Std Deviation Plt Count Neut # (Auto) Lymph # (Auto) Island # (Auto) Immature Gran # (Auto) VBG pH VBG pCO2 Carbon Dioxide BUN Creatinine Glucose POC Glucose Lactate Calcium Troponin I High Sens 97.4 H* 108.5 H* Procalcitonin Urine Appearance Cloudy A Urine Protein 1+ H Urine Ketones Urine Blood 3+ H Urine Nitrite Ur Leukocyte Esterase 2+ H Urine WBC (Auto) 21-50 H Urine RBC (Auto) >20 H U Hyaline Cast (Auto) 3-5 H Urine Bacteria (Auto) 10/24/24 10/24/24 10/24/24 07:45 16:01 23:26 WBC 10.92 H RBC 3.14 L Hgb 9.9 L Hct 30.1 L MCHC RDW Std Deviation 48.1 H Plt Count 128 L Neut # (Auto) Lymph # (Auto) Island # (Auto) Immature Gran # (Auto) VBG pH VBG pCO2 Carbon Dioxide BUN 28 H Creatinine 1.75 H D Glucose 160 H POC Glucose Lactate Calcium 8.4 L Troponin I High Sens 58.3 H* D 55.4 H* 49.1 H Procalcitonin Urine Appearance Urine Protein Urine Ketones Urine Blood Urine Nitrite Ur Leukocyte Esterase Urine WBC (Auto) Urine RBC (Auto) U Hyaline Cast (Auto) Urine Bacteria (Auto) 10/25/24 10/25/24 10/25/24 07:13 08:46 08:46 WBC RBC 3.43 L Hgb 10.8 L Hct 33.0 L MCHC RDW Std Deviation 48.4 H Plt Count Neut # (Auto) Lymph # (Auto) Island # (Auto) Immature Gran # (Auto) VBG pH VBG pCO2 Carbon Dioxide BUN 27 H 27 H Creatinine 1.67 H Glucose POC Glucose 151 H Lactate Calcium Troponin I High Sens Procalcitonin Urine Appearance Urine Protein Urine Ketones Urine Blood Urine Nitrite Ur Leukocyte Esterase Urine WBC (Auto) Urine RBC (Auto) U Hyaline Cast (Auto) Urine Bacteria (Auto) 10/25/24 10/25/24 10/25/24 08:46 08:46 10:56 WBC RBC Hgb Hct MCHC RDW Std Deviation Plt Count Neut # (Auto) Lymph # (Auto) Island # (Auto) Immature Gran # (Auto) VBG pH VBG pCO2 Carbon Dioxide BUN Creatinine 1.61 H Glucose 182 H 180 H POC Glucose 150 H Lactate Calcium Troponin I High Sens 41.8 H Procalcitonin Urine Appearance Urine Protein Urine Ketones Urine Blood Urine Nitrite Ur Leukocyte Esterase Urine WBC (Auto) Urine RBC (Auto) U Hyaline Cast (Auto) Urine Bacteria (Auto) 10/26/24 10/27/24 05:52 06:04 WBC RBC 3.47 L 3.13 L Hgb 10.8 L 9.8 L Hct 33.1 L 30.1 L MCHC RDW Std Deviation 47.3 H 48.8 H Plt Count Neut # (Auto) Lymph # (Auto) Island # (Auto) Immature Gran # (Auto) VBG pH VBG pCO2 Carbon Dioxide 35 H 34 H BUN 29 H Creatinine 1.64 H 2.18 H D Glucose 156 H 154 H POC Glucose Lactate Calcium 8.5 L 8.2 L Troponin I High Sens Procalcitonin Urine Appearance Urine Protein Urine Ketones Urine Blood Urine Nitrite Ur Leukocyte Esterase Urine WBC (Auto) Urine RBC (Auto) U Hyaline Cast (Auto) Urine Bacteria (Auto) PG Care Time/CCT Total # of Minutes Spent Total Time Spent with Patient: Total time spent is greater than 50% in coordination of care (as documented) at patient's floor/unit and/or counseling patient: Coding Level of Care Code 27857 SUB INP/OBS CARE 2/35MIN Diagnoses UTI (urinary tract infection) N39.0 Urolithiasis N20.9 CKD (chronic kidney disease) N18.9
--- NOTE | 2024-10-27 12:01 | Cardiology Progress Note ---
Date of Service October 27, 2024 Assessment & Plan (1) Elevated troponin: (2) Paroxysmal SVT (supraventricular tachycardia): (3) HTN (hypertension): (4) Hypoxia: Plan ASSESSMENT/PLAN: 1. Elevated troponin: She did not present with acute coronary syndrome. Likely due to demand ischemia in the setting of UTI and pneumonia. Treat underlying acute illnesses. If future symptoms concerning for ischemic heart disease, could consider ischemic evaluation, but would not pursue currently while hospitalized for acute infection. Workup could be considered in the outpatient setting for concerning symptoms. 2. Paroxysmal SVT/atrial tachycardia: Episodes noted on telemetry daily for the past 4 days. When seen this afternoon, she had gone nearly 12 hours without recurrence. Mostly asymptomatic. Episodes have been mostly sustained. Carvedilol increased to 25 mg twice daily this hospital stay. Diltiazem initiated 10/27/2024. No recurrence since initiation of diltiazem as of this afternoon. 3. Hypertension: Blood pressure has been mostly hypertensive, but improved. Carvedilol titrated evening of 10/25/2024. Amlodipine discontinued in favor of diltiazem on 10/27/2024. 4. UTI: As per primary hospitalist service. 5. Pneumonia: Concern for aspiration based on patient and family description of choking/coughing while eating. On antibiotics per hospitalist service. 6. Hypoxia: Net fluid balance had been quite positive throughout her hospital stay but good diuresis the past 2 days. She received Lasix 40 mg on 10/25/2024 and 10/26/2024. Renal function slightly worsened today. Hold off on further diuretics at this time. Oxygen supplementation requirements improved following diuresis. Monitor renal function and electrolytes. 7. Disposition: Cardiology will continue to follow. Please call with questions or concerns. Admission and Anticipated Discharge Date Admission Date: October 21, 2024 Subjective She was seen today with her sister and daughter at the bedside. Her breathing has improved. She denies orthopnea overnight. She denies chest pain, palpitations, syncope, near syncope. She reports that her weakness has improved. Physical Exam Physical Exam: Gen.: No acute distress. Alert. HEENT: Anicteric sclera. Neck: Thick neck. Cardiac: Regular. Normal rate. Normal S1-S2. No murmurs, rubs, or gallops. Pulmonary: Decreased breath sounds bilaterally with improved bibasilar crackles. Abdomen: Soft, nondistended, with normoactive bowel sounds. No bruits noted. Extremities: 2+ radial pulses bilaterally. 2+ posterior tibialis pulses bilaterally. No significant edema. No cyanosis. Results & Data Vital Signs (Past 12 Hours) Vital Signs Temp Pulse Pulse Resp BP Pulse Ox Pulse Ox 10/27/24 10:15 93 10/27/24 08:00 36.8 C 101 H 18 132/65 92 10/27/24 07:36 64 10/27/24 07:36 10/27/24 07:12 74 15 94 10/27/24 03:11 36.8 C 109 H 19 163/80 H 96 10/27/24 03:00 94 10/27/24 00:21 104 H 18 95 10/27/24 00:02 O2 Del Method O2 Del Method O2 Flow Rate O2 Flow Rate 10/27/24 10:15 Room Air 10/27/24 08:00 Nasal Cannula 1 10/27/24 07:36 10/27/24 07:36 Nasal Cannula 1 10/27/24 07:12 Nasal Cannula 2 10/27/24 03:11 Nasal Cannula 2 10/27/24 03:00 Nasal Cannula 2 10/27/24 00:21 Nasal Cannula 2 10/27/24 00:02 Nasal Cannula 2 Intake & Output 10/25/24 10/26/24 10/27/24 10/28/24 06:59 06:59 06:59 06:59 Intake Total 2276.25 / 2276.25 1200 / 1200 775 / 775 Output Total 2351 / 2351 3501 / 3501 3775 / 3775 Balance -74.75 / -74.75 -2301 / -2301 -3000 / -3000 Weight 231 lb 11.293 oz 222 lb 10.67 oz 218 lb 7.649 oz Laboratory Results Laboratory Results - last 24 hr 10/27/24 06:04 WBC 8.90 RBC 3.13 L Hgb 9.8 L Hct 30.1 L MCV 96.2 MCH 31.3 MCHC 32.6 RDW Std Deviation 48.8 H RDW Coeff of Chauncey 13.7 Plt Count 174 MPV 10.3 Absolute Nucleated RBC 0.02 Nucleated RBC % (auto) 0.2 Sodium 142 Potassium 3.7 Chloride 100 Carbon Dioxide 34 H Anion Gap 8 BUN 29 H Creatinine 2.18 H D Est Cr Clr Drug Dosing 23.3 eGFR 22.77 BUN/Creatinine Ratio 13.3 Glucose 154 H Calcium 8.2 L Diagnostic Findings Labs reviewed and notable for mildly worsened renal function, normal potassium, ongoing anemia. Hospitalist note reviewed. Telemetry personally reviewed: Had an episode of atrial tachycardia that subsided just before 4 AM on 10/27/2024, and otherwise no sustained arrhythmia the remainder of the day when evaluated this afternoon. Otherwise, sinus rhythm. Medications Administered Current Inpatient Medications Acetaminophen (Acetaminophen 325 Mg Tab) 650 mg PO Q4H PRN PRN Reason: Pain or Fever Stop: 11/20/24 03:29 Albuterol (Albut/Ipratrop 3mg/0.5mg Neb 3 Ml Vial) 3 ml NEB Q6R MONSE; Protocol Stop: 11/22/24 12:59 Last Admin: 10/27/24 07:11 Dose: 3 ml Albuterol (Albuterol 0.5% Neb Soln 2.5 Mg/0.5 Ml Vial) 2.5 mg NEB Q6R PRN; Protocol PRN Reason: Shortness Of Breath Or Wheezing Stop: 11/22/24 12:59 Aspirin (Aspirin 81 Mg Chew) 81 mg PO QAM [facility] Stop: 11/21/24 08:59 Last Admin: 10/27/24 08:12 Dose: 81 mg Budesonide (Budesonide 0.5 Mg/2 Ml Vial (Pulmicort)) 0.5 mg NEB BIDR [facility] Stop: 11/22/24 01:59 Last Admin: 10/27/24 07:11 Dose: 0.5 mg Carvedilol (Carvedilol 25 Mg Tab) 25 mg PO BID [facility] Stop: 11/24/24 20:59 Last Admin: 10/27/24 08:12 Dose: 25 mg Diltiazem HCl (Diltiazem Hcl 120 Mg Capcr) 120 mg PO QAM [facility] Stop: 11/26/24 08:59 Last Admin: 10/27/24 08:11 Dose: 120 mg Gabapentin (Gabapentin 300 Mg Cap) 300 mg PO BID [facility] Stop: 11/20/24 08:59 Last Admin: 10/27/24 08:13 Dose: 300 mg Guaifenesin/Dextromethorphan (Guaifenesin/Dextrom Syrup 200mg/20mg 10ml Udc) 10 ml PO Q6H PRN PRN Reason: Cough Stop: 11/24/24 22:51 Last Admin: 10/27/24 07:51 Dose: 10 ml Heparin Sodium (Porcine) (Heparin Sod 5,000 Unit/0.5 Ml Vial) 5,000 units SQ Q8 [facility] Stop: 11/22/24 13:59 Last Admin: 10/27/24 05:21 Dose: 5,000 units Hydralazine HCl (Hydralazine Tab 50 Mg Tab) 50 mg PO TID [facility] Stop: 11/20/24 08:59 Last Admin: 10/27/24 08:13 Dose: 50 mg Hydralazine HCl (Hydralazine Hcl 20 Mg/Ml Vial) 10 mg IV Q4 PRN PRN Reason: sbp>185 or dbp>95 Stop: 11/24/24 11:23 Hydromorphone HCl (Hydromorphone Inj 0.5 Mg/0.5 Ml Syr) 0.25 mg IV Q3H PRN PRN Reason: Pain (1,2,3,4,5) & Pre PT Stop: 11/04/24 02:23 Last Admin: 10/25/24 01:49 Dose: 0.25 mg Hydromorphone HCl (Hydromorphone Inj 0.5 Mg/0.5 Ml Syr) 0.5 mg IV Q3H PRN PRN Reason: Pain (6,7,8,9,10) Stop: 11/04/24 02:23 Last Admin: 10/22/24 15:16 Dose: 0.5 mg Hydroxyzine HCl (Hydroxyzine Hcl 25 Mg Tab) 50 mg PO HS PRN PRN Reason: anxiety Stop: 11/20/24 03:29 Last Admin: 10/26/24 22:04 Dose: 50 mg Methylprednisolone 40 mg/ (Syringe) 0.64 mls @ 1.5 mls/min IV Q24H [facility] Stop: 11/22/24 20:59 Last Admin: 10/26/24 22:02 Dose: 1.5 mls/min Azithromycin (Zithromax) 500 mg in 255 mls @ 127.5 mls/hr IV Q24H [facility] Stop: 10/28/24 00:44 Last Infusion: 10/27/24 00:49 Dose: Infused Piperacillin Sod/Tazobactam Sod (Zosyn) 4.5 gm in 100 mls @ 25 mls/hr IV Q8H [facility]; Protocol Stop: 10/28/24 07:59 Last Admin: 10/27/24 07:52 Dose: 25 mls/hr Lactobacillus Acidophilus (Advanced Probiotic 625 Mg Capsule) 1,250 mg PO DAILY [facility] Stop: 11/24/24 08:59 Last Admin: 10/27/24 08:12 Dose: 1,250 mg Lamotrigine (Lamotrigine 100 Mg Tab) 100 mg PO DAILY [facility]; Protocol Stop: 11/20/24 08:59 Last Admin: 10/27/24 08:13 Dose: 100 mg Levothyroxine Sodium (Levothyroxine Sodium 50 Mcg Tablet) 50 mcg PO DAILYBB [facility] Stop: 11/20/24 06:29 Last Admin: 10/27/24 05:21 Dose: 50 mcg Melatonin (Melatonin 3 Mg Tab) 3 mg PO HS PRN PRN Reason: Sleep Stop: 11/20/24 03:29 Last Admin: 10/21/24 20:12 Dose: 3 mg Metoclopramide HCl (Metoclopramide Hcl Inj 5 Mg/Ml 2 Ml Vial) 10 mg IV Q6H PRN PRN Reason: Nausea Stop: 11/20/24 03:29 Ondansetron HCl (Ondansetron Inj 2 Mg/Ml 2 Ml Vial) 4 mg IV Q6H PRN PRN Reason: Nausea Stop: 11/20/24 03:29 Pantoprazole Sodium (Pantoprazole 40 Mg Tab) 40 mg PO QAM [facility] Stop: 11/22/24 09:29 Last Admin: 10/27/24 08:12 Dose: 40 mg Polyethylene Glycol (Polyethylene (Miralax) 17 Gm Pack) 17 gm PO DAILY PRN PRN Reason: Constipation Stop: 11/20/24 03:29 Sertraline HCl (Sertraline Hcl 100 Mg Tablet) 100 mg PO HS [facility] Stop: 11/20/24 20:59 Last Admin: 10/26/24 22:09 Dose: 100 mg PG Care Time/CCT Total # of Minutes Spent Total Time Spent with Patient: Total time spent is greater than 50% in coordination of care (as documented) at patient's floor/unit and/or counseling patient: Coding Level of Care Code 93067 SUB INP/OBS CARE 3/50MIN Diagnoses Elevated troponin R79.89 Paroxysmal SVT (supraventricular tachycardia) I47.10 HTN (hypertension) I10 Hypoxia R09.02
[2024-10-28 07:31] LABS: Hematocrit (blood only) 28.9 % (37.0-47.0); Hemoglobin 9.5 g/dl (12.0-16.0); Mean Corpuscular Hemoglobin 31.7 pg (25.0-34.0); Mean Corpuscular Volume 96.3 fL (80.0-100.0); Platelet Count 195 K/uL (130-400); RDW Standard Deviation 49.2 fL (36.4-46.3); Red Blood Count 3.00 M/uL (4.20-5.40); White Blood Count 9.05 K/ul (4.8-10.8)
[2024-10-28 07:58] LABS: Anion Gap 8.0 (3-11); Blood Urea Nitrogen 33.0 mg/dl (6-23); Calcium 8.3 mg/dl (8.6-10.3); Carbon Dioxide 33.0 mmol/L (21-32); Chloride 99.0 mmol/L (98-107); Creatinine Clr Calc Pharmacy 25.3 ml/min; Glucose 140.0 mg/dl (70-99(Fasting)); Potassium 3.7 mmol/L (3.5-5.1); Sodium 140.0 mmol/L (136-145)
--- NOTE | 2024-10-28 10:41 | Hospitalist Progress Note ---
Date of Service October 28, 2024 Assessment & Plan (1) UTI (urinary tract infection): (2) Urolithiasis: (3) CKD (chronic kidney disease): Plan 79-year-old female PMHx hypothyroidism, MAXIMILIANO, CKD, generalized weakness, MDD, GERD, and HTN presenting for LLQ abdominal pain with associated N/V/D starting the day of arrival. ED evaluation reveals CBC with leukocytosis 11.72, stable H&H; CMP creatinine 1.62, glucose 138; lactate 2.4, pending repeat s/p fluids; UA positive for infection; CTAP L kidney with mild hydronephrosis and hydroureter to the obstructing calculus of 2 mm involving L lower ureter, 12 mm proximal to the vesicular ureteral junction, few hyperdense foci noted within th e calyx of bilateral kidneys, fat-containing supraumbilical hernia #Hospital-acquired pneumonia CTA with multi lobar opacities and small effusions Respiratory infectious workup negative. MRSA screen negative Pulmonary toilet as needed Antibiotics broadened 10/23 to empirical IV Zosyn and azithromycin x 7 to 10 days #Rule out dysphagia Aspiration precautions Dysphagia diet per ST Video swallow Negative #Asthma exacerbation VBG with mild hypercapnia Steroids taper as tolerated. Bronchodilators May benefit from outpatient pulmonary referral #Acute hypoxic respiratory failure BiPAP at bedtime/as needed. Wean O2 #ELLY on CKD Improving Follows with nephro for CKD, baseline Cr 1.5-2.2 Avoid nephrotoxic meds IV fluids Taper to oral intake Renal ultrasound Unrevealing #urolithiasis obstructing calculus 2mm in the left lower ureter resulting in mild hydronephrosis and hydroureter. UA suggestive of infection. Prior cultures with puga-sensitive Klebsiella and puga-sensitive E. coli. CTAP L kidney with minor hydronephrosis and hydroureter to the obstructing 2 mm calculus involving L lower ureter, 12 mm proximal to vesicular ureteral junction Supportive care Strain urine Status post left stent 10/21. Urology cleared for discharge follow-up outpatient For stone removal Once infection resolved #Klebsiella UTI Pansensitive Continue antibiotics as above #Elevated troponins likely type II MII in setting of above EKG nonischemic. TNI is flat TTE unrevealing Cardiology consulted they have no further input. Can consider outpatient ischemic workup #Paroxysmal SVT/atrial tachycardia beta benson increased by cardiology. 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 ASA. #Generalized weakness PT OT GI steroid prophylaxis DVT prophylaxis Dispo discharge Rehab once bed available This document was dictated utilizing POK[employer]. Please excuse any grammatical errors that may be secondary to use of this software. Admission and Anticipated Discharge Date Admission Date: October 21, 2024 Subjective Doing very well in good spirits eating breakfast denies shortness of breath or any other symptoms Review of Systems Constitutional: as per Subjective / HPI Genitourinary: as per Subjective / HPI Physical Exam Physical Exam: General: No acute distress Skin: Warm and dry Head: Normocephalic, atraumatic Eyes: PERRL, conjunctivae clear, sclera non-icteric ENT: External ear and ear canal without swelling; nose atraumatic; good dentition, tongue normal appearance, pharynx normal Neck: Supple, no LAD Cardio: s1 s2+ Resp: Air entry bilaterally scattered wheeze Abdomen: Soft, symmetric,Nontender MSK: No deformities; pulses palpable and equal; trace pitting edema BLE Neuro: Awake, alert; Sensation intact bilaterally; CN grossly intact Psych:Appropriate mood and affect; good judgement and insight. Results & Data Results & Data Vital Signs (Past 12 Hours) Vital Signs Temp Pulse Pulse Resp BP Pulse Ox O2 Del Method 10/28/24 09:00 Nasal Cannula 10/28/24 08:00 36.6 C 70 18 140/60 96 Nasal Cannula 10/28/24 07:19 71 10/28/24 07:15 81 19 98 Nasal Cannula 10/28/24 00:41 65 10/28/24 00:35 65 18 96 Nasal Cannula 10/27/24 22:42 66 19 154/68 H 91 Nasal Cannula O2 Flow Rate 10/28/24 09:00 2 10/28/24 08:00 2 10/28/24 07:19 10/28/24 07:15 2 10/28/24 00:41 10/28/24 00:35 2 10/27/24 22:42 2 Laboratory Results Abnormal Labs 10/20/24 10/20/24 10/21/24 22:00 22:47 00:59 WBC 11.71 H RBC 4.03 L Hgb Hct MCHC RDW Std Deviation 47.4 H Plt Count Neut # (Auto) 9.84 H Lymph # (Auto) 1.06 L [place] # (Auto) Immature Gran # (Auto) VBG pH VBG pCO2 Carbon Dioxide BUN Creatinine 1.62 H Glucose 138 H POC Glucose Lactate 2.4 H* Calcium Troponin I High Sens Procalcitonin Urine Appearance Urine Protein 3+ H Urine Ketones Trace H Urine Blood Urine Nitrite Positive A Ur Leukocyte Esterase 1+ H Urine WBC (Auto) 21-50 H Urine RBC (Auto) U Hyaline Cast (Auto) Urine Bacteria (Auto) 4+ H 10/22/24 10/22/24 10/22/24 21:08 23:00 23:01 WBC 17.87 H RBC 3.25 L Hgb 10.5 L Hct 32.5 L MCHC RDW Std Deviation 52.7 H Plt Count Neut # (Auto) 14.52 H Lymph # (Auto) [place] # (Auto) 0.98 H Immature Gran # (Auto) 0.65 H VBG pH 7.28 L 7.31 L VBG pCO2 56 H 51 H Carbon Dioxide BUN 38 H Creatinine 2.46 H D Glucose 118 H POC Glucose Lactate Calcium 8.5 L Troponin I High Sens 45.9 H Procalcitonin 17.80 H Urine Appearance Urine Protein Urine Ketones Urine Blood Urine Nitrite Ur Leukocyte Esterase Urine WBC (Auto) Urine RBC (Auto) U Hyaline Cast (Auto) Urine Bacteria (Auto) 10/23/24 10/23/24 10/23/24 01:10 05:44 07:49 WBC 16.70 H RBC 3.41 L Hgb 10.6 L Hct 33.4 L MCHC 31.7 L RDW Std Deviation 50.2 H Plt Count 128 L Neut # (Auto) Lymph # (Auto) [place] # (Auto) Immature Gran # (Auto) VBG pH 7.34 L VBG pCO2 Carbon Dioxide BUN 36 H Creatinine 2.14 H D Glucose 185 H POC Glucose Lactate Calcium 8.3 L Troponin I High Sens 88.0 H* D 98.2 H* D Procalcitonin Urine Appearance Urine Protein Urine Ketones Urine Blood Urine Nitrite Ur Leukocyte Esterase Urine WBC (Auto) Urine RBC (Auto) U Hyaline Cast (Auto) Urine Bacteria (Auto) 10/23/24 10/23/24 10/23/24 15:22 23:50 Unknown WBC RBC Hgb Hct MCHC RDW Std Deviation Plt Count Neut # (Auto) Lymph # (Auto) [place] # (Auto) Immature Gran # (Auto) VBG pH VBG pCO2 Carbon Dioxide BUN Creatinine Glucose POC Glucose Lactate Calcium Troponin I High Sens 97.4 H* 108.5 H* Procalcitonin Urine Appearance Cloudy A Urine Protein 1+ H Urine Ketones Urine Blood 3+ H Urine Nitrite Ur Leukocyte Esterase 2+ H Urine WBC (Auto) 21-50 H Urine RBC (Auto) >20 H U Hyaline Cast (Auto) 3-5 H Urine Bacteria (Auto) 10/24/24 10/24/24 10/24/24 07:45 16:01 23:26 WBC 10.92 H RBC 3.14 L Hgb 9.9 L Hct 30.1 L MCHC RDW Std Deviation 48.1 H Plt Count 128 L Neut # (Auto) Lymph # (Auto) [place] # (Auto) Immature Gran # (Auto) VBG pH VBG pCO2 Carbon Dioxide BUN 28 H Creatinine 1.75 H D Glucose 160 H POC Glucose Lactate Calcium 8.4 L Troponin I High Sens 58.3 H* D 55.4 H* 49.1 H Procalcitonin Urine Appearance Urine Protein Urine Ketones Urine Blood Urine Nitrite Ur Leukocyte Esterase Urine WBC (Auto) Urine RBC (Auto) U Hyaline Cast (Auto) Urine Bacteria (Auto) 10/25/24 10/25/24 10/25/24 07:13 08:46 08:46 WBC RBC 3.43 L Hgb 10.8 L Hct 33.0 L MCHC RDW Std Deviation 48.4 H Plt Count Neut # (Auto) Lymph # (Auto) [place] # (Auto) Immature Gran # (Auto) VBG pH VBG pCO2 Carbon Dioxide BUN 27 H 27 H Creatinine 1.67 H Glucose POC Glucose 151 H Lactate Calcium Troponin I High Sens Procalcitonin Urine Appearance Urine Protein Urine Ketones Urine Blood Urine Nitrite Ur Leukocyte Esterase Urine WBC (Auto) Urine RBC (Auto) U Hyaline Cast (Auto) Urine Bacteria (Auto) 10/25/24 10/25/24 10/25/24 08:46 08:46 10:56 WBC RBC Hgb Hct MCHC RDW Std Deviation Plt Count Neut # (Auto) Lymph # (Auto) [place] # (Auto) Immature Gran # (Auto) VBG pH VBG pCO2 Carbon Dioxide BUN Creatinine 1.61 H Glucose 182 H 180 H POC Glucose 150 H Lactate Calcium Troponin I High Sens 41.8 H Procalcitonin Urine Appearance Urine Protein Urine Ketones Urine Blood Urine Nitrite Ur Leukocyte Esterase Urine WBC (Auto) Urine RBC (Auto) U Hyaline Cast (Auto) Urine Bacteria (Auto) 10/26/24 10/27/24 10/28/24 05:52 06:04 06:10 WBC RBC 3.47 L 3.13 L 3.00 L Hgb 10.8 L 9.8 L 9.5 L Hct 33.1 L 30.1 L 28.9 L MCHC RDW Std Deviation 47.3 H 48.8 H 49.2 H Plt Count Neut # (Auto) Lymph # (Auto) [place] # (Auto) Immature Gran # (Auto) VBG pH VBG pCO2 Carbon Dioxide 35 H 34 H 33 H BUN 29 H 33 H Creatinine 1.64 H 2.18 H D 2.01 H Glucose 156 H 154 H 140 H POC Glucose Lactate Calcium 8.5 L 8.2 L 8.3 L Troponin I High Sens Procalcitonin Urine Appearance Urine Protein Urine Ketones Urine Blood Urine Nitrite Ur Leukocyte Esterase Urine WBC (Auto) Urine RBC (Auto) U Hyaline Cast (Auto) Urine Bacteria (Auto) PG Care Time/CCT Total # of Minutes Spent Total Time Spent with Patient: Total time spent is greater than 50% in coordination of care (as documented) at patient's floor/unit and/or counseling patient: Coding Level of Care Code 66377 SUB INP/OBS CARE 35MIN Diagnoses UTI (urinary tract infection) N39.0 Urolithiasis N20.9 CKD (chronic kidney disease) N18.9
--- NOTE | 2024-10-28 10:45 | Discharge Summary ---
Discharge Summary Date of Service October 28, 2024 Principal Dx & Hospital Course #1 = Principal Diagnosis (1) UTI (urinary tract infection): (2) Urolithiasis: (3) CKD (chronic kidney disease): Plan 79-year-old female PMHx hypothyroidism, MAXIMILIANO, CKD, generalized weakness, MDD, GERD, and HTN presenting for LLQ abdominal pain with associated N/V/D starting the day of arrival. ED evaluation reveals CBC with leukocytosis 11.72, stable H&H; CMP creatinine 1.62, glucose 138; lactate 2.4, pending repeat s/p fluids; UA positive for infection; CTAP L kidney with mild hydronephrosis and hydroureter to the obstructing calculus of 2 mm involving L lower ureter, 12 mm proximal to the vesicular ureteral junction, few hyperdense foci noted within the calyx of bilateral kidneys, fat-containing supraumbilical hernia #Hospital-acquired pneumonia CTA with multi lobar opacities and small effusions Respiratory infectious workup negative. MRSA screen negative Pulmonary toilet as needed Antibiotics broadened 10/23 to empirical IV Zosyn and azithromycin x 7 to 10 days #Rule out dysphagia Aspiration precautions Dysphagia diet per ST Video swallow Negative #Asthma exacerbation VBG with mild hypercapnia Steroids taper as tolerated. Bronchodilators May benefit from outpatient pulmonary referral #Acute hypoxic respiratory failure BiPAP at bedtime/as needed. Wean O2 #ELLY on CKD Improving Follows with nephro for CKD, baseline Cr 1.5-2.2 Avoid nephrotoxic meds IV fluids Taper to oral intake Renal ultrasound Unrevealing #urolithiasis obstructing calculus 2mm in the left lower ureter resulting in mild hydronephrosis and hydroureter. UA suggestive of infection. Prior cultures with puga-sensitive Klebsiella and puga-sensitive E. coli. CTAP L kidney with minor hydronephrosis and hydroureter to the obstructing 2 mm calculus involving L lower ureter, 12 mm proximal to vesicular ureteral junction Supportive care Strain urine Status post left stent 10/21. Urology cleared for discharge follow-up outpatient For stone removal Once infection resolved #Klebsiella UTI Pansensitive Continue antibiotics as above #Elevated troponins likely type II MII in setting of above EKG nonischemic. TNI is flat TTE unrevealing Cardiology consulted they have no further input. Can consider outpatient ischemic workup #Paroxysmal SVT/atrial tachycardia beta benson increased by cardiology. 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 ASA. #Generalized weakness PT OT GI steroid prophylaxis DVT prophylaxis Dispo discharge Rehab once bed available This document was dictated utilizing [employer]. Please excuse any grammatical errors that may be secondary to use of this software. Admission HPI Per Admitting Provider 79-year-old female PMHx hypothyroidism, MAXIMILIANO, CKD, generalized weakness, MDD, GERD, and HTN presenting for LLQ abdominal pain with associated N/V/D starting the day of arrival. States that she woke up and felt in normal health. She was able to have breakfast and coffee, but when she went to urinate following this she noticed burning. She has had UTIs in the past and states that this had felt similar. Shortly after this, she started to have L flank pain which only worsened throughout the day. She describes it as a sharp pain that is 10/10 at its worst, and currently an 8/10 on the pain scale. She notes that her abdomen felt more "swollen" the day of arrival as well. Her daughter notes that she was in severe pain around 1600 and waited to be seen. She had 1 episode of emesis, but has had nausea all day. She notes chills, but no fever. Never had this happen before. Denies chest pain, SOB, palpitations, constipation, numbness/tingling, URI symptoms, additional LUTS, weakness, or syncope. She did not take her daily medications. ED evaluation reveals CBC with leukocytosis 11.72, stable H&H; CMP creatinine 1.62, glucose 138; lactate 2.4, pending repeat s/p fluids; UA positive for infection; CTAP L kidney with mild hydronephrosis and hydroureter to the obstructing calculus of 2 mm involving L lower ureter, 12 mm proximal to the vesicular ureteral junction, few hyperdense foci noted within the calyx of bilateral kidneys, fat-containing supraumbilical hernia.; Provided with 1L NSS, Zofran 4 mg IV, morphine 4 mg IV, famotidine 20 mg IV, ceftriaxone 2 g IV, and acetaminophen 1 g IV in ED. Please see Dr. Dinero's attestation for adjustments/additions to treatment plan. Discharge Exam General: No acute distress Skin: Warm and dry Head: Normocephalic, atraumatic Eyes: PERRL, conjunctivae clear, sclera non-icteric ENT: External ear and ear canal without swelling; nose atraumatic; good dentition, tongue normal appearance, pharynx normal Neck: Supple, no LAD Cardio: s1 s2+ Resp: Air entry bilaterally scattered wheeze Abdomen: Soft, symmetric,Nontender MSK: No deformities; pulses palpable and equal; trace pitting edema BLE Neuro: Awake, alert; Sensation intact bilaterally; CN grossly intact Psych:Appropriate mood and affect; good judgement and insight. Discharge Plan Discharge Items Patient Disposition: Transfer Inpatient Rehab Fac Reason For Visit: SEPSIS, UTI, STONE Discharge Diagnosis: pna Condition on Discharge: Good Activity: Resume your previous activity Non-emergency contact: Primary Care Provider Call non-emergency contact if: you have any medication questions and your symptoms worsen Follow-up/Referrals: Alana Edmond PA-C [Physician Hot Kettle Tender] - 11/02/24 1:30 am (Alana Edmond is a Physician Hot Kettle Tender that works with Dr. Quiroz. She will see you for your hospital follow up. Please arrive 15 min. before your scheduled time. Thank you!) Diet: Carb Consistent or DM2, Low Fat and Low Sodium (2gm) Addtl Attending Provider Instructions: Please follow-up closely with your primary doctor, Urology and cardiology within 1 week. Repeat blood works in 1 to 2 days in rehab to monitor kidney function and electrolytes Pending Studies at Discharge: No Studies:: BMP in 1-2 days Stand-Alone Forms: My [facility] Skilled Items Patient informed of condition?: Yes DNR: No Discharge Level of Care: Acute rehab Communicable Disease: No Discharge Prognosis: Stable Lines: None Urinary Catheter: No Medications and DC Order Prescriptions: New pantoprazole 40 mg Tablet,Delayed Release (Dr/Ec) 40 mg PO QAM Qty: 14 0RF prednisone 50 mg tablet 50 mg PO DAILY 5 Days Qty: 5 0RF carvedilol 25 mg Tablet 25 mg PO BID Qty: 60 0RF diltiazem HCl [Cardizem CD] 120 mg Capsule,Extended Release 24hr 120 mg PO QAM Qty: 30 0RF Advanced Probiotic 625 mg (10 billion cell) Capsule See Rx Instructions .ROUTE .COMPLEX Qty: 30 0RF Rx Instructions: 1 tab daily levofloxacin 750 mg Tablet 750 mg PO DAILY@1100 3 Days Qty: 3 0RF Continued nystatin [Nystop] 100,000 unit/gram powder 1 applic topical BID PRN (Reason: irritation) Qty: 60 1RF Rx Instructions: apply to clean and dry affected area twice daily (DME) Optifoam 6 X 6 " bandage See Rx Instructions .Route Qty: 10 0RF Rx Instructions: As directed levothyroxine 50 mcg tablet 50 mcg PO DAILY Qty: 90 3RF mupirocin 2 % ointment 1 applic topical BID PRN (Reason: rash) Qty: 22 2RF hydroxyzine HCl 25 mg tablet 25 mg PO .COMPLEX PRN (Reason: anxiety) Qty: 60 0RF Patient Comments: takes once daily Rx Instructions: 25 mg orally 2 PILLS AT HS (psych) PRN; cholecalciferol (vitamin D3) [Vitamin D3] 25 mcg (1,000 unit) tablet 50 mcg PO QAM Qty: 90 3RF aspirin 81 mg tablet,delayed release (DR/EC) 81 mg PO DAILY Qty: 90 3RF cranberry 500 mg capsule 500 mg PO BID Rx Instructions: administer with meals albuterol sulfate 90 mcg/actuation HFA aerosol inhaler 2 puff inhalation Q6H PRN (Reason: Wheezing) hydralazine 50 mg tablet 50 mg PO TID Qty: 90 5RF triamcinolone acetonide 0.05 % ointment 1 applic topical BID PRN (Reason: rash) Qty: 430 0RF sertraline 100 mg tablet 100 mg PO HS Qty: 30 0RF gabapentin 300 mg capsule 300 mg PO BID lamotrigine 100 mg tablet 100 mg PO DAILY Discontinued amlodipine 10 mg tablet 10 mg PO DAILY Qty: 90 3RF carvedilol [Coreg] 12.5 mg tablet 12.5 mg PO BID Qty: 60 5RF Rx Instructions: must administer with a meal/food Discharge Orders: Discharge Order (Routine); Ordered 10/28/24 Ordered By: Michael Mathis Admission Data Admit Date/Time: 10/21/24 02:18 Attending Provider: Michael Mathis Admit Provider: Luma Dinero Primary Care Provider: Iqra Quiroz Other Providers: Luma Dinero; Osmel Cisneros; Deon Hogue; Neri Garcia; Harley Padilla; Philip Butcher; Venkat Cm Jr; Rhys Posada; Ericka Aguilera; Mary Jane Diaz; Donell Alexandre; Donell Mary; Jami Romeo; Td Laughlin; Patti Solis; Td Monroe; Yefri Andino; Wily Pulido; Daljit Aguirre; Michael Sin; Douglas Marmolejo; Samantha Mckenna; [facility] Stay Data Consultations 10/21/24 01:41 ED Decision to Admit Stat 10/21/24 03:30 Consult Urology Routine 10/24/24 07:37 Consult Cardiology Routine Procedures Performed Operation Date: 10/21/24 10:35 Actual Procedures p Cystoscopy, Retrograde Pyelogram, Left Stent Placement(Left) - Agustín Stewart MD Diagnostic Imagining Performed 10/20/24 22:07 CT abd pelvis IV con only Stat 10/21/24 FL retrograde includes kub Routine 10/23/24 01:36 CT angio chest PE protocol Stat 10/23/24 11:00 US Kidney Bladder [US renal/blad retro comp] Routine 10/26/24 10:30 FL video swallow Routine Pending Results Patient Have Any Pending Studies at Discharge: No Discharge Instructions Given to Patient (Per Discharging Provider) Please follow-up closely with your primary doctor, Urology and cardiology within 1 week. Repeat blood works in 1 to 2 days in rehab to monitor kidney function and electrolytes Total Time Total Time Spent Total Time Spent (In Minutes): 35 Coding Level of Care Code 55982 INP/OBS DISCH >30 MIN Diagnoses UTI (urinary tract infection) N39.0 Urolithiasis N20.9 CKD (chronic kidney disease) N18.9
--- NOTE | 2024-10-28 14:38 | Cardiology Progress Note ---
Date of Service October 28, 2024 Assessment & Plan (1) Elevated troponin: (2) Paroxysmal SVT (supraventricular tachycardia): (3) HTN (hypertension): (4) Hypoxia: Plan ASSESSMENT/PLAN: 1. Elevated troponin: She did not present with acute coronary syndrome. Likely due to demand ischemia in the setting of UTI and pneumonia. Treat underlying acute illnesses. If future symptoms concerning for ischemic heart disease, could consider ischemic evaluation, but would not pursue currently while hospitalized for acute infection. Workup could be considered in the outpatient setting for concerning symptoms. 2. Paroxysmal SVT/atrial tachycardia: Episodes noted on telemetry daily for the past 4 days, with last episode on 10/27/2024. No further significant atrial tachycardia after initiation of diltiazem CD1 120 mg daily on 10/27/2024 morning. Mostly asymptomatic. Episodes have been mostly sustained. Carvedilol increased to 25 mg twice daily this hospital stay. Diltiazem initiated 10/27/2024. 3. Hypertension: Blood pressure has been mostly hypertensive, but improved. Carvedilol titrated evening of 10/25/2024. Amlodipine discontinued in favor of diltiazem on 10/27/2024. Further adjustments can be made as necessary per primary hospitalist service. 4. UTI: As per primary hospitalist service. 5. Pneumonia: Concern for aspiration based on patient and family description of choking/coughing while eating. On antibiotics per hospitalist service. 6. Hypoxia: Net fluid balance had been quite positive throughout her hospital stay but good diuresis the past 2 days. She received Lasix 40 mg on 10/25/2024 and 10/26/2024. Oxygen supplementation requirements improved following diuresis. Monitor renal function and electrolytes. She appears rather euvolemic at this time. Diuretic therapy not necessary today. 7. Anemia: As per primary hospitalist service. 8. Disposition: Cardiology will sign off. We discussed potential outpatient cardiology follow-up for her atrial tachycardia. She prefers to follow-up as needed, but pleased with improvement of her atrial tachycardia with diltiazem. Updated her daughter. Admission and Anticipated Discharge Date Admission Date: October 21, 2024 Subjective Patient was seen earlier today. She denies shortness of breath, syncope, near syncope, chest pain, palpitations, or bleeding. She feels much better overall. She was unaccompanied. Physical Exam Physical Exam: Gen.: No acute distress. Alert. HEENT: Anicteric sclera. Neck: Thick neck. Cardiac: Regular without ectopy. Normal heart rate. Normal S1-S2. No murmurs, rubs, or gallops. Pulmonary: Decreased breath sounds bilaterally with mild bibasilar crackles. Abdomen: Soft, nondistended, with normoactive bowel sounds. No bruits noted. Extremities: 2+ radial pulses bilaterally. 2+ posterior tibialis pulses bilaterally. No significant edema. No cyanosis. Results & Data Vital Signs (Past 12 Hours) Vital Signs Temp Pulse Pulse Pulse Resp BP Pulse Ox 10/28/24 14:20 65 10/28/24 14:03 88 17 98 10/28/24 11:45 36.9 C 64 20 149/62 H 93 10/28/24 11:09 36.6 C 57 L 70 18 140/60 96 10/28/24 09:00 10/28/24 08:00 36.6 C 70 18 140/60 96 10/28/24 07:19 71 10/28/24 07:15 81 19 98 O2 Del Method O2 Flow Rate 10/28/24 14:20 10/28/24 14:03 Nasal Cannula 2 10/28/24 11:45 Nasal Cannula 2 10/28/24 11:09 10/28/24 09:00 Nasal Cannula 2 10/28/24 08:00 Nasal Cannula 2 10/28/24 07:19 10/28/24 07:15 Nasal Cannula 2 Intake & Output 10/26/24 10/27/24 10/28/24 10/29/24 06:59 06:59 06:59 06:59 Intake Total 1200 / 1200 775 / 775 905 / 905 Output Total 3501 / 3501 3775 / 3775 1125 / 1125 Balance -2301 / -2301 -3000 / -3000 -220 / -220 Weight 222 lb 10.67 oz 218 lb 7.649 oz 218 lb 4.122 oz 218 lb 4.122 oz Laboratory Results Laboratory Results - last 24 hr 10/28/24 06:10 WBC 9.05 RBC 3.00 L Hgb 9.5 L Hct 28.9 L MCV 96.3 MCH 31.7 MCHC 32.9 RDW Std Deviation 49.2 H RDW Coeff of Chauncey 13.7 Plt Count 195 MPV 10.7 Sodium 140 Potassium 3.7 Chloride 99 Carbon Dioxide 33 H Anion Gap 8 BUN 33 H Creatinine 2.01 H Est Cr Clr Drug Dosing 25.3 eGFR 25.11 BUN/Creatinine Ratio 16.4 Glucose 140 H Calcium 8.3 L Diagnostic Findings Labs reviewed and notable for abnormal but slightly improved renal function (within her baseline). Normal potassium. Anemia. Telemetry personally reviewed: Has not had any further atrial tachycardia since initiation of diltiazem on 10/27/2024 morning. Sinus rhythm. Medications Administered Current Inpatient Medications Acetaminophen (Acetaminophen 325 Mg Tab) 650 mg PO Q4H PRN PRN Reason: Pain or Fever Stop: 11/20/24 03:29 Albuterol (Albut/Ipratrop 3mg/0.5mg Neb 3 Ml Vial) 3 ml NEB Q6R MONSE; Protocol Stop: 11/22/24 12:59 Last Admin: 10/28/24 14:03 Dose: 3 ml Albuterol (Albuterol 0.5% Neb Soln 2.5 Mg/0.5 Ml Vial) 2.5 mg NEB Q6R PRN; Protocol PRN Reason: Shortness Of Breath Or Wheezing Stop: 11/22/24 12:59 Aspirin (Aspirin 81 Mg Chew) 81 mg PO QAM [facility] Stop: 11/21/24 08:59 Last Admin: 10/28/24 08:12 Dose: 81 mg Budesonide (Budesonide 0.5 Mg/2 Ml Vial (Pulmicort)) 0.5 mg NEB BIDR [facility] Stop: 11/22/24 01:59 Last Admin: 10/28/24 07:14 Dose: 0.5 mg Carvedilol (Carvedilol 25 Mg Tab) 25 mg PO BID [facility] Stop: 11/24/24 20:59 Last Admin: 10/28/24 08:11 Dose: 25 mg Diltiazem HCl (Diltiazem Hcl 120 Mg Capcr) 120 mg PO QAM [facility] Stop: 11/26/24 08:59 Last Admin: 10/28/24 08:12 Dose: 120 mg Gabapentin (Gabapentin 300 Mg Cap) 300 mg PO BID [facility] Stop: 11/20/24 08:59 Last Admin: 10/28/24 08:13 Dose: 300 mg Guaifenesin/Dextromethorphan (Guaifenesin/Dextrom Syrup 200mg/20mg 10ml Udc) 10 ml PO Q6H PRN PRN Reason: Cough Stop: 11/24/24 22:51 Last Admin: 10/28/24 08:19 Dose: 10 ml Heparin Sodium (Porcine) (Heparin Sod 5,000 Unit/0.5 Ml Vial) 5,000 units SQ Q8 MONSE Stop: 11/22/24 13:59 Last Admin: 10/28/24 13:51 Dose: Not Given Hydralazine HCl (Hydralazine Tab 50 Mg Tab) 50 mg PO TID [facility] Stop: 11/20/24 08:59 Last Admin: 10/28/24 14:07 Dose: 50 mg Hydralazine HCl (Hydralazine Hcl 20 Mg/Ml Vial) 10 mg IV Q4 PRN PRN Reason: sbp>185 or dbp>95 Stop: 11/24/24 11:23 Hydromorphone HCl (Hydromorphone Inj 0.5 Mg/0.5 Ml Syr) 0.25 mg IV Q3H PRN PRN Reason: Pain (1,2,3,4,5) & Pre PT Stop: 11/04/24 02:23 Last Admin: 10/25/24 01:49 Dose: 0.25 mg Hydromorphone HCl (Hydromorphone Inj 0.5 Mg/0.5 Ml Syr) 0.5 mg IV Q3H PRN PRN Reason: Pain (6,7,8,9,10) Stop: 11/04/24 02:23 Last Admin: 10/22/24 15:16 Dose: 0.5 mg Hydroxyzine HCl (Hydroxyzine Hcl 25 Mg Tab) 50 mg PO HS PRN PRN Reason: anxiety Stop: 11/20/24 03:29 Last Admin: 10/26/24 22:04 Dose: 50 mg Methylprednisolone 40 mg/ (Syringe) 0.64 mls @ 1.5 mls/min IV Q24H [facility] Stop: 11/22/24 20:59 Last Admin: 10/27/24 20:17 Dose: 1.5 mls/min Lactobacillus Acidophilus (Advanced Probiotic 625 Mg Capsule) 1,250 mg PO DAILY [facility] Stop: 11/24/24 08:59 Last Admin: 10/28/24 08:12 Dose: 1,250 mg Lamotrigine (Lamotrigine 100 Mg Tab) 100 mg PO DAILY [facility]; Protocol Stop: 11/20/24 08:59 Last Admin: 10/28/24 09:21 Dose: 100 mg Levofloxacin (Levofloxacin 750 Mg Tab) 750 mg PO DAILY@1100 [facility]; Protocol Stop: 10/30/24 10:59 Last Admin: 10/28/24 11:24 Dose: 750 mg Levothyroxine Sodium (Levothyroxine Sodium 50 Mcg Tablet) 50 mcg PO DAILYBB [facility] Stop: 11/20/24 06:29 Last Admin: 10/28/24 05:44 Dose: 50 mcg Melatonin (Melatonin 3 Mg Tab) 3 mg PO HS PRN PRN Reason: Sleep Stop: 11/20/24 03:29 Last Admin: 10/27/24 20:17 Dose: 3 mg Metoclopramide HCl (Metoclopramide Hcl Inj 5 Mg/Ml 2 Ml Vial) 10 mg IV Q6H PRN PRN Reason: Nausea Stop: 11/20/24 03:29 Ondansetron HCl (Ondansetron Inj 2 Mg/Ml 2 Ml Vial) 4 mg IV Q6H PRN PRN Reason: Nausea Stop: 11/20/24 03:29 Pantoprazole Sodium (Pantoprazole 40 Mg Tab) [facility] Stop: 11/22/24 09:29 Last Admin: 10/28/24 08:13 Dose: 40 mg Polyethylene Glycol (Polyethylene (Miralax) 17 Gm Pack) 17 gm PO DAILY PRN PRN Reason: Constipation Stop: 11/20/24 03:29 Sertraline HCl (Sertraline Hcl 100 Mg Tablet) 100 mg PO HS [facility] Stop: 11/20/24 20:59 Last Admin: 10/27/24 20:17 Dose: 100 mg PG Care Time/CCT Total # of Minutes Spent Total Time Spent with Patient: Total time spent is greater than 50% in coordination of care (as documented) at patient's floor/unit and/or counseling patient: Coding Level of Care Code 30089 SUB INP/OBS CARE 3/50MIN Diagnoses Elevated troponin R79.89 Paroxysmal SVT (supraventricular tachycardia) I47.10 HTN (hypertension) I10 Hypoxia R09.02
[2024-10-28] MEDS: SIMETHICONE 80 MG CHEW PO ONE (17:45)
[2024-10-29 07:19] LABS: Hematocrit (blood only) 31.2 % (37.0-47.0); Hemoglobin 9.9 g/dl (12.0-16.0); Mean Corpuscular Hemoglobin 30.9 pg (25.0-34.0); Mean Corpuscular Volume 97.5 fL (80.0-100.0); Platelet Count 228 K/uL (130-400); RDW Standard Deviation 49.6 fL (36.4-46.3); Red Blood Count 3.20 M/uL (4.20-5.40); White Blood Count 9.91 K/ul (4.8-10.8)
[2024-10-29 07:38] LABS: Anion Gap 9.0 (3-11); Blood Urea Nitrogen 35.0 mg/dl (6-23); Calcium 8.6 mg/dl (8.6-10.3); Carbon Dioxide 28.0 mmol/L (21-32); Chloride 102.0 mmol/L (98-107); Creatinine Clr Calc Pharmacy 27.8 ml/min; Glucose 139.0 mg/dl (70-99(Fasting)); Potassium 4.0 mmol/L (3.5-5.1); Sodium 139.0 mmol/L (136-145)
--- NOTE | 2024-10-29 19:42 | Hospitalist Progress Note ---
Date of Service October 29, 2024 Assessment & Plan (1) UTI (urinary tract infection): Plan: Puga-sensitive Klebsiella pneumoniae UTI (as noted on 10/20/2024, 10:47pm urine culture). RESOLVED s/p zosyn. (2) Urolithiasis: Plan: Asymptomatic s/p left ureteral stent (10/21/2024, 10:35am, [facility] Urologist Dr. Agustín Stewart). (3) CKD (chronic kidney disease): Plan: Observe. (4) Labile essential hypertension: Plan: Labile HTN remains hard to control on 10/29/2024, and requires daily dose adjustments and/or holding off patient's HTN medication regimen including carvedilol 25mg PO bid, diltiazem 120mg PO daily, and hydralazine 50mg PO tid. Plan 79-year-old female PMHx hypothyroidism, MAXIMILIANO, CKD, generalized weakness, MDD, GERD, and HTN presenting for LLQ abdominal pain with associated N/V/D starting the day of arrival. ED evaluation reveals CBC with leukocytosis 11.72, stable H&H; CMP creatinine 1.62, glucose 138; lactate 2.4, pending repeat s/p fluids; UA positive for infection; CTAP L kidney with mild hydronephrosis and hydroureter to the obstructing calculus of 2 mm involving L lower ureter, 12 mm proximal to the vesicular ureteral junction, few hyperdense foci noted within the calyx of bilateral kidneys, fat-containing supraumbilical hernia #Hospital-acquired pneumonia CTA with multi lobar opacities and small effusions Respiratory infectious workup negative. MRSA screen negative Pulmonary toilet as needed Antibiotics broadened 10/23 to empirical IV Zosyn and azithromycin x 7 to 10 days #Rule out dysphagia Aspiration precautions Dysphagia diet per ST Video swallow Negative #Asthma exacerbation VBG with mild hypercapnia Steroids taper as tolerated. Bronchodilators May benefit from outpatient pulmonary referral #Acute hypoxic respiratory failure BiPAP at bedtime/as needed. Wean O2 #ELLY on CKD Improving Follows with nephro for CKD, baseline Cr 1.5-2.2 Avoid nephrotoxic meds IV fluids Taper to oral intake Renal ultrasound Unrevealing #urolithiasis obstructing calculus 2mm in the left lower ureter resulting in mild hydronephrosis and hydroureter. UA suggestive of infection. Prior cultures with puga-sensitive Klebsiella and puga-sensitive E. coli. CTAP L kidney with minor hydronephrosis and hydroureter to the obstructing 2 mm calculus involving L lower ureter, 12 mm proximal to vesicular ureteral junction Supportive care Strain urine Status post left stent 10/21. Urology cleared for discharge follow-up outpatient For stone removal Once infection resolved #Klebsiella UTI Pansensitive Continue antibiotics as above #Elevated troponins likely type II MII in setting of above EKG nonischemic. TNI is flat TTE unrevealing Cardiology consulted they have no further input. Can consider outpatient ischemic workup #Paroxysmal SVT/atrial tachycardia beta benson increased by cardiology. 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 ASA. #Generalized weakness PT OT GI steroid prophylaxis DVT prophylaxis Dispo discharge Rehab once bed available This document was dictated utilizing Exo. Please excuse any grammatical errors that may be secondary to use of this software. Admission and Anticipated Discharge Date Admission Date: October 21, 2024 Subjective "I feel fine. When can I go to [facility] for acute rehab?" Review of Systems Constitutional: Negative for antecedent/coincident fevers, chills, diaphoresis, cough, wheeze, sore throat, hemoptysis, chest pains, palpitations, pleurisy, nausea, vomiting, diarrhea, abdominal pain, pelvic pain, hematemesis, hematochezia, melena, hematuria, dysuria, frequency, urgency, headaches, dizziness, lightheadedness, visual changes, hearing changes, weakness, falls, syncope, trauma, travel history, sick contacts, or food/drug ingestions novel or new. All other review of systems are reported as negative by the patient on 10/29/2024. Physical Exam Constitutional: General appearance: Comfortable, coherent, cooperative. Wide awake and alert. Not confused, lethargic, or obtunded. Speaks in complete, fluent, and art iculate sentences without pause, interruption, cough, or wheeze. HEENT: Normocephalic; atraumatic. EOMI. PERRL No rhinorrhea. No pharyngeal discharge. Neck: Supple, no stridor, bruit, goiter, JVD, or HJR. Lymph: No lymphadenopathy. Chest: Symmetric rise and fall with respirations. Non-tender to palpation. Lungs: Clear to auscultation and percussion. No audible wheeze, pect oriloquy, increase in tactile fremitus, or flatness/dullness to percussion at the bases. Heart: RRR, S1S2, no S3 or S4. Grade II/ early systolic murmur @ LLSB without radiation to the carotids, axilla, or back, and which remains invariant in regards to the respiratory cycle. Abd: Soft, non-tender, non-distended. No rebound, guarding, Temple's sign, or organomegaly. Bowel sounds auscultated in all 4 quadrants. Ext: No clubbing, cyanosis, or edema. 2+ pedal pulses bilaterally. Skin: No decubitus ulcer, exanthem, or enanthem Neuro: Alert and oriented in regards to person, place, time, or situation. 5/5 motor strength in all 4 extremities, both proximally and distally. Urology: No kramer catheter. No urethral discharge. Psych: No suicidal ideation. No homicidal ideation. Results & Data Results & Data Vital Signs (Past 12 Hours) Vital Signs Temp Pulse Pulse Pulse Resp BP Pulse Ox 10/29/24 16:34 163/66 H 10/29/24 16:14 36.6 C 73 20 191/72 H 96 10/29/24 16:00 10/29/24 13:30 10/29/24 13:03 55 L 89 L 10/29/24 11:43 160/54 H 10/29/24 11:30 91 10/29/24 11:12 36.3 C L 66 18 188/75 H 95 10/29/24 10:16 101/67 10/29/24 10:04 91 10/29/24 09:41 86 10/29/24 08:07 Pulse Ox O2 Del Method O2 Del Method O2 Flow Rate O2 Flow Rate 10/29/24 16:34 10/29/24 16:14 Nasal Cannula 1 10/29/24 16:00 Nasal Cannula 1 10/29/24 13:30 96 Nasal Cannula 1 10/29/24 13:03 Room Air 10/29/24 11:43 10/29/24 11:30 Room Air 10/29/24 11:12 Room Air 10/29/24 10:16 10/29/24 10:04 Nasal Cannula 1 10/29/24 09:41 10/29/24 08:07 Oxymask 2 Laboratory Results Abnormal lab results 10/29/24 Range/Units 06:15 RBC 3.20 L (4.20-5.40) M/uL Hgb 9.9 L (12.0-16.0) g/dl Hct 31.2 L (37.0-47.0) % MCHC 31.7 L (32.0-36.0) g/dL RDW Std Deviation 49.6 H (36.4-46.3) fL BUN 35 H (6-23) mg/dl Creatinine 1.81 H (0.6-1.2) mg/dl Glucose 139 H (70-99(Fasting)) mg/dl PG Care Time/CCT Total # of Minutes Spent Total Time Spent with Patient: Total time spent is greater than 50% in coordination of care (as documented) at patient's floor/unit and/or counseling patient: Coding Level of Care Code 82474 SUB INP/OBS CARE 2MIN Diagnoses UTI (urinary tract infection) N39.0 Urolithiasis N20.9 CKD (chronic kidney disease) N18.9 Labile essential hypertension I10
[2024-10-29] MEDS: ALUMINUM/MAGNESIUM SUSP 30 ML UDC PO STA (20:52)
--- NOTE | 2024-10-30 05:33 | Electrocardiogram Report ---
Test Reason : Blood Pressure : */* mmHG Vent. Rate : 110 BPM Atrial Rate : 110 BPM P-R Int : 172 ms QRS Dur : 90 ms QT Int : 302 ms P-R-T Axes : 56 3 53 degrees QTcB Int : 408 ms Sinus tachycardia Nonspecific ST abnormality Abnormal ECG When compared with ECG of 20-Nov-2021 13:54, NV interval has decreased Vent. rate has increased by 42 bpm T wave inversion no longer evident in Anterior leads Confirmed by hRys Posada ([id number]) on 10/30/2024 5:33:34 AM Referred By: REFERRED SELF Confirmed By: Rhys Posada
[2024-10-30 11:19] VITALS: BP 150/97; RESP 18; TEMP 98.1; O2SAT 94
--- NOTE | 2024-10-30 12:57 | Discharge Summary ---
Discharge Summary Date of Service October 30, 2024 Principal Dx & Hospital Course #1 = Principal Diagnosis (1) UTI (urinary tract infection): Acute puga-sensitive Klebsiella pneumoniae UTI (as noted on 10/20/2024, 10:47pm urine culture). RESOLVED s/p ceftriaxone 2g IV x 1 dose (10/21/2024, 1:28am), s/p ceftriaxone 1g IV x 1 dose (10/22/2024, 10:30am), s/p zosyn 4.5g IV x 1 dose (10/23/2024, 2:41am), s/p zosyn 4.5g IV q8 x 15 doses (10/23/2024, 7:35am through 10/28/2024, 12:44am), s/p levofloxacin 750mg PO x 2 doses (10/28/2024, 11:24am, 10/30/2024, 8:41am). cf., repeat urine culture (10/23/2024): negative (2) Acute kidney injury: RESOLVING well s/p 500 mL of 0.9% NS @ 999 mL/hr (10/20/2024, 10:20pm), s/p 500 mL of 0.9% NS @ 999 mL/hr (10/20/2024, 11:51pm), s/p 7 liters of lactated Ringers @ 80 mL/hr (10/21/2024, 2:48am; 10/21/2024, 2:05pm; 10/21/2024, 10:26pm; 10/22/2024, 7:23am; 10/22/2024, 3:16pm; 10/22/2024, 11:24pm; 10/23/2024, 7:32am). cf., admission creatinine1.62 mg/dL, GFR 32.52 mL/min (10/20/2024, 10:00pm). cf., discharge creatinine 1.81 mg/dL, GFR 28.47 mL/min (10/29/2024, 6:15am). cf., CKD stage III with baseline creatinine range, 1.46 - 1.60 (09/09/2023 - 09/15/2024). Etiology of acute kidney injury was due to acute dehydration, caused by acute puga-sensitive Klebsiella pneumoniae UTI (as noted on 10/20/2024, 10:47pm urine culture). Etiology of CKD stage III is due to chronic HTN. (3) Urolithiasis: Asymptomatic s/p left ureteral stent (10/21/2024, 10:35am, [facility] Urologist Dr. Agustín Stewart). Patient was advised to follow up with her [facility] Urologist Dr. Agustín Stewart within 5-7 days of hospital discharge. (4) CKD (chronic kidney disease): The cornerstone of therapy of CKD stage III is to treat the underlying condition, namely, HTN, as described in bullet #5 below. (5) Labile essential hypertension: Well-controlled with discharge BP 150/97 (10/30/2024, 11:17am) on home-scheduled carvedilol 25mg PO bid, diltiazem 120mg PO daily, and hydralazine 50mg PO tid. Patient will continue all three home-scheduled medications on hospital discharge home with home PT/OT/VNA Services on 10/30/2024. Plan [id number] right-handed female with PMH of FULL CODE @ home, morbid obesity with BMI 40.7 (height 154.9 cm; weight 97.7 kg), hypothyroidism on home- scheduled synthroid 50ug PO daily, MAXIMILIANO on home-scheduled lamotrigine 100mg PO daily and hydroxyzine 25mg PO daily prn anxiety, major depression on home- scheduled sertraline 100mg PO qhs, GERD on home-scheduled protonix 40mg PO qam, CKD stage III with baseline creatinine range, 1.46 - 1.60 (09/09/2023 - 09/15/2024), HTN on home-scheduled carvedilol 12.5mg PO bid, home-scheduled amlodipine 10mg PO qam, and home-scheduled hydralazine 50mg PO tid, and CVD, s/p chronic left frontal lobe periventricular CVA (as reported on 11/06/2018 MRI brain without contrast) and chronic right occipital lobe hemorrhagic CVA (as reported on 12/18/2020 CT brain without IV contrast), with neurologic sequela of mild RUE paresis, now on home-scheduled ASA 81mg PO daily, who complained of acute onset of LLQ abdominal pain with associated N/V/D starting the day of arrival (e.g., 10/21/2024) to [facility] ER. Labs in [facility] ER revealed: WBC 11.72, creatinine 1.62, glucose 138; lactate 2.4, U/A positive for infection with puga-sensitive Klebsiella pneumoniae (as noted on 10/20/2024, 10:47pm urine culture). Additional testing in [facility] ER included: CT abd/pelvis with IV contrast (10/20/2024, 10:27pm): 1. Left kidney shows mild hydronephrosis and hydroureter up to an obstructing calculus of size 2 mm involving left lower ureter, 12 mm proximal to ve sicoureteric junction.-new finding. 2. Few hyperdense foci are noted within the calyx of bilateral kidneys- possibility of excreted contrast /calculi. 3. Fat containing supraumbilical hernia. Patient was subsequently admitted to the inpatient hospitalist service @ [facility] on 10/21/2024 with the following diagnoses: 1. Acute puga-sensitive Klebsiella pneumoniae UTI (as noted on 10/20/2024, 10:47pm urine culture). 2. Acute kidney injury with admission creatinine 1.62 mg/dL, GFR 32.52 mL/min (10/20/2024, 10:00pm). Additional medical issues that developed post-hospital admission included: #Acute bilateral, multilobar (RUL, RLL, LLL) HAP (as noted on 10/23/2024, 1:36pm CTA chest). RESOLVED s/p antibiotic treatment administered to patient to treat acute puga-sensitive Klebsiella pneumoniae UTI (as noted on 10/20/2024, 10:47pm urine culture). In addition, patient received azithromycin 500mg IV daily x 6 doses (10/23/2024, 1:11am; 10/23/2024, 9:48pm; 10/24/2024, 10:50pm; 10/25/2024, 10:30pm; , 10:37pm; 10/27/2024, 10:27pm). Patient was subsequently discharged back to her home on 10/30/2024 (this time with home PT/OT/VNA Services), OFF antibiotics and OFF1 liter/minute O2 via nasal cannula. #Rule out dysphagia, RESOLVED. Aspiration precautions Dysphagia diet per ST Video swallow negative for aspiration (09/30/2024, 10:30am). Patient was subsequently discharged back to her home on 10/30/2024 (this time with home PT/OT/VNA Services), on a heart healthy diet. #Asthma exacerbation, RESOLVED. VBG with mild hypercapnia Steroids taper as tolerated. Bronchodilators May benefit from outpatient pulmonary referral #Acute hypoxic respiratory failure, RESOLVED. Etiology of acute hypoxic respiratory failure was most likely due to acute bilateral, multilobar (RUL, RLL, LLL) HAP (as noted on 10/23/2024, 1:36pm CTA chest). BiPAP at bedtime/as needed. Patient was subsequently discharged back to her home on 10/30/2024 (this time with home PT/OT/VNA Services), OFF1 liter/minute O2 via nasal cannula and back on her home-scheduled albuterol MDI 90ug/puff, 2 puffs PO q6 prn SOB/wheeze. #Urolithiasis obstructing calculus 2mm in the left lower ureter resulting in mild hydronephrosis and hydroureter. UA suggestive of infection. Prior cultures with puga-sensitive Klebsiella and puga-sensitive E. coli. CTAP L kidney with minor hydronephrosis and hydroureter to the obstructing 2 mm calculus involving L lower ureter, 12 mm proximal to vesicular ureteral junction Supportive care Strain urine Status post left stent 10/21. Urology cleared for discharge follow-up outpatient For stone removal Once infection resolved #Elevated troponins with troponin-I #1 45.9 pg/mL (10/22/2024, 9:08pm), peaking to 108.5 pg/mL (10/23/2024, 11:50pm), most likely due to demand ischemia (e.g., type II NSTEMI), and which in turn, was due to acute hypoxic respiratory failure, which in turn, was due to acute bilateral, multilobar (RUL, RLL, LLL) HAP (as noted on 10/23/2024, 1:36pm CTA chest). cf., EKG (10/22/2024, 8:59pm): sinus tach @ 110, CT 172, QTC 408, no acute ST depressions, TWI, or q waves (by my review). cf., TTE (10/23/2024, 6:50am): 1. LVEF 55-60%. No wall motion abnormality. 2. RV systolic function normal. Cardiology Service has no further input. Observe. #Paroxysmal SVT/atrial tachycardia Carvedilol dose was increased by Cardiology Service from home-scheduled carvedilol 12.5mg PO bid to hospital-started carvedilol 25mg PO bid (start date/time, 10/25/2024, 7:08pm). Cardiology Service switched patient from amlodipine 10mg PO daily to diltiazem 120mg PO daily (start date/time, 10/27/2024, 8:11am). Patient will continue hospital-started carvedilol 25mg PO bid and diltiazem 120mg PO daily on hospital discharge back to her home on 10/30/2024 (this time with home PT/OT/VNA Services). Patient's [id number] received on 10/29/2024, two electronic prescriptions for: a. carvedilol 25mg PO bid, #60 tablets, no refills. b. diltiazem 120mg PO daily, #30 tablets, no refills. #Hypothyroidism- Asymptomatic on home-scheduled levothyroxine 50ug PO daily with no lid lag, proptosis, or goiter. #CVD, s/p chronic left frontal lobe periventricular CVA (as reported on 11/06/2018 MRI brain without contrast) and chronic right occipital lobe hemorrhagic CVA (as reported on 12/18/2020 CT brain without IV contrast), with neurologic sequela of mild RUE paresis. Continue secondary prophylaxis against CVD utilizing home-scheduled ASA 81mg PO daily. #Generalized weakness. Patient received daily PT/OT Service evaluations while in [facility] from 10/21/2024 through 10/30/2024. Patient was rejected by [employer] to receive acute rehab services @ [facility] ([place], [place]) on 10/30/2024. Patient was subsequently discharged back to her home on 10/30/2024 (this time with home PT/OT/VNA Services). Admission HPI Per Admitting Provider 79-year-old female PMHx hypothyroidism, MAXIMILIANO, CKD, generalized weakness, MDD, GERD, and HTN presenting for LLQ abdominal pain with associated N/V/D starting the day of arrival. States that she woke up and felt in normal health. She was able to have breakfast and coffee, but when she went to urinate following this she noticed burning. She has had UTIs in the past and states that this had felt similar. Shortly after this, she started to have L flank pain which only worsened throughout the day. She describes it as a sharp pain that is 10/10 at its worst, and currently an 8/10 on the pain scale. She notes that her abdomen felt more "swollen" the day of arrival as well. Her daughter notes that she was in severe pain around 1600 and waited to be seen. She had 1 episode of emesis, but has had nausea all day. She notes chills, but no fever. Never had this happen before. Denies chest pain, SOB, palpitations, constipation, numbness/tingling, URI symptoms, additional LUTS, weakness, or syncope. She did not take her daily medications. ED evaluation reveals CBC with leukocytosis 11.72, stable H&H; CMP creatinine 1.62, glucose 138; lactate 2.4, pending repeat s/p fluids; UA positive for infection; CTAP L kidney with mild hydronephrosis and hydroureter to the obstructing calculus of 2 mm involving L lower ureter, 12 mm proximal to the vesicular ureteral junction, few hyperdense foci noted within the calyx of bilateral kidneys, fat-containing supraumbilical hernia.; Provided with 1L NSS, Zofran 4 mg IV, morphine 4 mg IV, famotidine 20 mg IV, ceftriaxone 2 g IV, and acetaminophen 1 g IV in ED. Please see Dr. Dinero's attestation for adjustments/additions to treatment plan. Discharge Exam Constitutional General appearance: Comfortable, coherent, cooperative. Wide awake and alert. Not confused, lethargic, or obtunded. Speaks in complete, fluent, and articulate sentences without pause, interruption, cough, or wheeze. HEENT: Normocephalic; atraumatic. EOMI. PERRL No rhinorrhea. No pharyngeal discharge. Neck: Supple, no stridor, bruit, goiter, JVD, or HJR. Lymph: No lymphadenopathy. Chest: Symmetric rise and fall with respirations. Non-tender to palpation. Lungs: Clear to auscultation and percussion. No audible wheeze, pectoriloquy, increase in tactile fremitus, or flatness/dullness to percussion at the bases. Heart: RRR, S1S2, no S3 or S4. Grade II/ early systolic murmur @ LLSB without radiation to the carotids, axilla, or back, and which remains invariant in regards to the respiratory cycle. Abd: Soft, non-tender, non-distended. No rebound, guarding, Temple's sign, or organomegaly. Bowel sounds auscultated in all 4 quadrants. Ext: No clubbing, cyanosis, or edema. 2+ pedal pulses bilaterally. Skin: No decubitus ulcer, exanthem, or enanthem Neuro: Alert and oriented in regards to person, place, time, or situation. 5/5 motor strength in all 4 extremities, both proximally and distally. MINIMAL RUE paresis due to CVD, s/p chronic left frontal lobe periventricular CVA (as reported on 11/06/2018 MRI brain without contrast) and chronic right occipital lobe hemorrhagic CVA (as reported on 12/18/2020 CT brain without IV contrast). Urology: No kramer catheter. No urethral discharge. Left ureteral stent in situ (inserted on 10/21/2024, 10:35am, [facility] Urologist Dr. Agustín Stewart). Psych: No suicidal ideation. No homicidal ideation. Discharge Plan Discharge Items Patient Disposition: Home - Home Health Services Reason For Visit: SEPSIS, UTI, STONE Discharge Diagnosis: 1. Sepsis due to puga-sensitive Klebsiella pneumoniae UTI (as noted on 10/20/2024, 10:47pm urine culture), RESOLVED. 2. Acute bilateral RUL/RLL/LLL HAP (as noted on 10/23/2024, 1:36am CTA chest), RESOLVED. Condition on Discharge: Good Activity: Resume your previous activity Lifting: Gradually increase as tolerated Bathing: No limitations Sexual Activity: When tolerated Exercise/Sports: Gradually increase as tolerated Driving/Machine Use: No limitations Weightbearing: Full weightbearing Non-emergency contact: Primary Care Provider Call non-emergency contact if: you have any medication questions and your symptoms worsen Follow-up/Referrals: Alana Edmond PA-C [Physician Employee Relations Director] - 11/02/24 1:30 am (Alana Edmond is a Physician Employee Relations Director that works with Dr. Quiroz. She will see you for your hospital follow up. Please arrive 15 min. before your scheduled time. Thank you!) Diet: Carb Consistent or DM2, Low Fat and Low Sodium (2gm) Addtl Attending Provider Instructions: 1. See your PCP MsLanden Edmond PA-C, within 5-7 days of hospital discharge for routine follow up visit. 2. See your Urologist Dr. Agustín Stewart, within 5-7 days of hospital discharge to discuss when the left ureteral stent can be removed. Pending Studies at Discharge: No Studies:: BMP in 1-2 days Stand-Alone Forms: [email or web address], Smoking Cessation Medications and DC Order Prescriptions: New pantoprazole 40 mg Tablet,Delayed Release (Dr/Ec) 40 mg PO QAM Qty: 14 0RF prednisone 50 mg tablet 50 mg PO DAILY 5 Days Qty: 5 0RF carvedilol 25 mg Tablet 25 mg PO BID Qty: 60 0RF diltiazem HCl [Cardizem CD] 120 mg Capsule,Extended Release 24hr 120 mg PO QAM Qty: 30 0RF Advanced Probiotic 625 mg (10 billion cell) Capsule See Rx Instructions .ROUTE .COMPLEX Qty: 30 0RF Rx Instructions: 1 tab daily Continued nystatin [Nystop] 100,000 unit/gram powder 1 applic topical BID PRN (Reason: irritation) Qty: 60 1RF Rx Instructions: apply to clean and dry affected area twice daily (DME) Optifoam 6 X 6 " bandage See Rx Instructions .Route Qty: 10 0RF Rx Instructions: As directed levothyroxine 50 mcg tablet 50 mcg PO DAILY Qty: 90 3RF mupirocin 2 % ointment 1 applic topical BID PRN (Reason: rash) Qty: 22 2RF hydroxyzine HCl 25 mg tablet 25 mg PO .COMPLEX PRN (Reason: anxiety) Qty: 60 0RF Patient Comments: takes once daily Rx Instructions: 25 mg orally 2 PILLS AT HS (psych) PRN; cholecalciferol (vitamin D3) [Vitamin D3] 25 mcg (1,000 unit) tablet 50 mcg PO QAM Qty: 90 3RF aspirin 81 mg tablet,delayed release (DR/EC) 81 mg PO DAILY Qty: 90 3RF cranberry 500 mg capsule 500 mg PO BID Rx Instructions: administer with meals albuterol sulfate 90 mcg/actuation HFA aerosol inhaler 2 puff inhalation Q6H PRN (Reason: Wheezing) hydralazine 50 mg tablet 50 mg PO TID Qty: 90 5RF triamcinolone acetonide 0.05 % ointment 1 applic topical BID PRN (Reason: rash) Qty: 430 0RF sertraline 100 mg tablet 100 mg PO HS Qty: 30 0RF gabapentin 300 mg capsule 300 mg PO BID lamotrigine 100 mg tablet 100 mg PO DAILY Discontinued amlodipine 10 mg tablet 10 mg PO DAILY Qty: 90 3RF carvedilol [Coreg] 12.5 mg tablet 12.5 mg PO BID Qty: 60 5RF Rx Instructions: must administer with a meal/food Discharge Orders: Discharge Order (Routine); Ordered 10/28/24 Ordered By: Michael Hickman/Other Patient Handouts: Using Oxygen Safely, What Is Pneumonia?, Preventing Pneumonia, Treating Pneumonia Admission Data Admit Date/Time: 10/21/24 02:18 Attending Provider: Osmel Chaney Admit Provider: Luma Dinero Primary Care Provider: Iqra Quiroz Other Providers: Luma Dinero; Osmel Cisneros; Deon Hogue; Neri Garcia; Harley Padilla; Philip Butcher; Venkat Cm Jr; Rhys Posada; Ericka Aguilera; Mary Jane Diaz; Donell Alexandre; Donell Mary; Jami Romeo; Td Laughlin; Patti Solis; Td Monroe; Yefri Andino; Wily Pulido; Daljit Aguirre; Michael Sin; Douglas Marmolejo; Samantha Mckenna; [facility]; [place]; [facility] Other Interventions: Discharge Summary Assessment (RN) Last Done: 10/28/24 11:09 Hospital Stay Data Consultations 10/21/24 01:41 ED Decision to Admit Stat 10/21/24 03:30 Consult Urology Routine 10/24/24 07:37 Consult Cardiology Routine Procedures Performed Operation Date: 10/21/24 10:35 Actual Procedures p Cystoscopy, Retrograde Pyelogram, Left Stent Placement(Left) - Agustín Stewart MD Diagnostic Imagining Performed 10/20/24 22:07 CT abd pelvis IV con only Stat 10/21/24 FL retrograde includes kub Routine 10/23/24 01:36 CT angio chest PE protocol Stat 10/23/24 11:00 US Kidney Bladder [US renal/blad retro comp] Routine 10/26/24 10:30 FL video swallow Routine Pending Results Patient Have Any Pending Studies at Discharge: No Discharge Instructions Given to Patient (Per Discharging Provider) 1. See your PCP Ms. Alana Edmond PA-C, within 5-7 days of hospital discharge for routine follow up visit. 2. See your Urologist Dr. Agustín Stewart, within 5-7 days of hospital discharge to discuss when the left ureteral stent can be removed. Total Time Total Time Spent Total Time Spent (In Minutes): 35 minutes. Of this time period, 19 minutes were spent in coordinating patient's discharge. Coding Level of Care Code 97431 INP/OBS DISCH >30 MIN Diagnoses UTI (urinary tract infection) N39.0 Acute kidney injury N17.9 Urolithiasis N20.9 CKD (chronic kidney disease) N18.9 Labile essential hypertension I10
[2024-10-30 14:19] VITALS: PULSE 55
--- NOTE | 2024-10-30 22:54 | Electrocardiogram Report ---
Test Reason : Blood Pressure : */* mmHG Vent. Rate : 91 BPM Atrial Rate : 91 BPM P-R Int : 244 ms QRS Dur : 100 ms QT Int : 374 ms P-R-T Axes : 12 14 70 degrees QTcB Int : 460 ms Sinus rhythm with 1st degree A-V block Nonspecific ST and T wave abnormality Abnormal ECG When compared with ECG of 25-Oct-2024 08:35, OR interval has increased ST no longer depressed in Lateral leads Confirmed by Rhys Posada ([id number]) on 10/30/2024 10:53:49 PM Referred By: REFERRED SELF Confirmed By: Rhys Posada
== END 2024-10-30 14:19 | disposition home health service (06) | DRG 659 ==
LOC: ED 22:00 → SUATTDRO 10-21 02:18 → 2S 10-21 02:18